=== PATIENT | male | born 1955 | race African-American/Black ===

== ENCOUNTER 2017-03-20 15:26 | Emergency (ER) | payer MEDICAID ==
[2017-03-20] VITALS (9 sets, daily range): BP systolic 160–206; BP diastolic 80–104; PULSE 67–82; RESP 14–24; TEMP 97.5; O2SAT 97–100
[~2017-03-20] VITALS: Ht 167.6 cm; Wt 56.0 kg
[~2017-03-20 15:26] MED LIST: ALLE12TA PO; GLUCTAB PO; LISI-366 PO; NORV2.5T11 PO; OMEP20TA39 PO
[2017-03-20] MEDS ORDERED: SODIUM CHLOR 0.9% 1000 ML INJ 1,000 ML IV ONE ×3 (16:20→17:45)
[2017-03-20] MEDS ORDERED: SODIUM CHLORIDE 0.9% FLUSH 10 ML FLUSH IVF PRN (16:30)
[2017-03-20 16:43] LABS: BASOPHIL # 0.1 TH/MM3 (0-0.2); BASOPHIL % 1.5 % (0.0-2.0); EOSINOPHIL # 0.2 TH/MM3 (0-0.4); EOSINOPHIL % 2.9 % (0.0-4.0); HEMATOCRIT 40.3 % (39.0-51.0); HEMO FLAGS DIFF FINAL; LYMPH % 25.8 % (9.0-44.0); MEAN CELL VOLUME 86.2 FL (80.0-100.0); MEAN CORPUSCULAR HEMOGLOBIN 27.3 PG (27.0-34.0); MEAN CORPUSCULAR HGB CONC 31.6 % (32.0-36.0); MONO % 6.7 % (0.0-8.0); NEUT % 63.1 % (16.0-70.0); PLATELET COUNT 252 TH/MM3 (150-450); RED BLOOD COUNT 4.67 MIL/MM3 (4.50-5.90); RED CELL DISTRIBUTION WIDTH 16.4 % (11.6-17.2); WHITE BLOOD COUNT 7.9 TH/MM3 (4.0-11.0)
--- NOTE | 2017-03-20 16:49 | PD ---
HPI Chief Complaint: Diabetic Time Seen by Provider: 16:40 Travel History International Travel<30 days: No Contact w/Intl Traveler<30days: No Traveled to known affect area: No History of Present Illness HPI Patient is 61-year-old male presenting to the emergency department for evaluation of elevated blood glucose reading. Patient was given a glucometer by his primary care provider today, he checked his blood sugar when he returned home and it was elevated pumping a visit to the emergency department. Patient has not been checking his blood sugar at all prior to today nor has he been compliant with his metformin. Patient denies any nausea, vomiting, fever, chills, abdominal pain, diarrhea. He reports past medical history significant for hypertension, type 2 diabetes, arthritis, asthma. He is a current daily smoker smoking 6 cigarettes daily. He denies any alcohol or drug use. PFSH Past Medical History Asthma: Yes ( CHILD) Cardiovascular Problems: Yes (htn) Diabetes: Yes (metformin) Diminished Hearing: No Hypertension: Yes Respiratory: Yes (asthma) Past Surgical History Tonsillectomy: Yes Social History Alcohol Use: Yes Tobacco Use: No Substance Use: No Allergies-Medications (Allergen,Severity, Reaction): Coded Allergies: No Known Allergies (Verified , 03/20/17) Reported Meds & Prescriptions Reported Meds & Active Scripts Active Reported Ranitidine (Ranitidine HCl) 150 Mg Cap Unknown Dose PO DAILY Lisinopril 40 Mg Tab Unknown Dose PO DAILY Metformin (Metformin HCl) 1,000 Mg Tab 1,000 Mg PO BIDPC With meals Review of Systems Except as stated in HPI: all other systems reviewed are Neg HENT: Positive: Congestion Physical Exam Narrative GENERAL: Developed, well-nourished, alert male. Resting comfortably in no acute distress. SKIN: Focused skin assessment warm/dry. HEAD: Atraumatic. Normocephalic. EYES: Pupils equal and round. No scleral icterus. No injection or drainage. ENT: No nasal bleeding or discharge. Mucous membranes pink and moist. NECK: Trachea midline. No JVD. CARDIOVASCULAR: Regular rate and rhythm. No murmur appreciated. RESPIRATORY: No accessory muscle use. Clear to auscultation. Breath sounds equal bilaterally. GASTROINTESTINAL: Abdomen soft, non-tender, nondistended. Hepatic and splenic margins not palpable. MUSCULOSKELETAL: No obvious deformities. No clubbing. No cyanosis. No edema. NEUROLOGICAL: Awake and alert. No obvious cranial nerve deficits. Motor grossly within normal limits. Normal speech. PSYCHIATRIC: Appropriate mood and affect; insight and judgment normal. Data Data Last Documented VS Vital Signs Date Time Temp Pulse Resp B/P Pulse Ox O2 Delivery O2 Flow Rate FiO2 03/20/17 20:12 71 22 206/99 98 Room Air 03/20/17 15:28 97.5 Orders Complete Blood Count With Diff (03/20/17 16:20) Comprehensive Metabolic Panel (03/20/17 16:20) Beta Hydroxybutyrate (Acetone) (03/20/17 16:20) Urinalysis - C+S If Indicated (03/20/17 16:20) Ecg Monitoring (03/20/17 16:20) Iv Access Insert/Monitor (03/20/17 16:20) Oximetry (03/20/17 16:20) NPO (03/20/17 16:20) Sodium Chlor 0.9% 1000 Ml Inj (Ns 1000 M (03/20/17 16:20) Sodium Chlor 0.9% 1000 Ml Inj (Ns 1000 M (03/20/17 16:50) Sodium Chloride 0.9% Flush (Ns Flush) (03/20/17 16:30) Insulin Human Regular Inj (Novolin R Inj (03/20/17 17:45) Sodium Chlor 0.9% 1000 Ml Inj (Ns 1000 M (03/20/17 17:45) Enalaprilat Inj (Vasotec Inj) (03/20/17 18:15) Blood Glucose (03/20/17 18:17) Hydralazine Inj (Apresoline Inj) (03/20/17 20:00) Labs Laboratory Tests Test 03/20/17 03/20/17 16:30 18:00 White Blood Count 7.9 TH/MM3 Red Blood Count 4.67 MIL/MM3 Hemoglobin 12.7 GM/DL Hematocrit 40.3 % Mean Corpuscular Volume 86.2 FL Mean Corpuscular Hemoglobin 27.3 PG Mean Corpuscular Hemoglobin 31.6 % Concent Red Cell Distribution Width 16.4 % Platelet Count 252 TH/MM3 Mean Platelet Volume 9.4 FL Neutrophils (%) (Auto) 63.1 % Lymphocytes (%) (Auto) 25.8 % Monocytes (%) (Auto) 6.7 % Eosinophils (%) (Auto) 2.9 % Basophils (%) (Auto) 1.5 % Neutrophils # (Auto) 5.0 TH/MM3 Lymphocytes # (Auto) 2.0 TH/MM3 Monocytes # (Auto) 0.5 TH/MM3 Eosinophils # (Auto) 0.2 TH/MM3 Basophils # (Auto) 0.1 TH/MM3 CBC Comment DIFF FINAL Differential Comment Sodium Level 135 MEQ/L Potassium Level 4.8 MEQ/L Chloride Level 99 MEQ/L Carbon Dioxide Level 28.2 MEQ/L Anion Gap 8 MEQ/L Blood Urea Nitrogen 17 MG/DL Creatinine 1.14 MG/DL Estimat Glomerular Filtration 80 ML/MIN Rate Random Glucose 431 MG/DL Calcium Level 9.0 MG/DL Total Bilirubin 0.5 MG/DL Aspartate Amino Transf 29 U/L (AST/SGOT) Alanine Aminotransferase 34 U/L (ALT/SGPT) Alkaline Phosphatase 133 U/L Total Protein 7.0 GM/DL Albumin 3.4 GM/DL B-Hydroxybutyrate 0.25 MMOL/L Urine Color LIGHT-YELLOW Urine Turbidity CLEAR Urine pH 6.0 Urine Specific [place] 1.019 Urine Protein 30 mg/dL Urine Glucose (UA) 1000 mg/dL Urine Ketones NEG mg/dL Urine Occult Blood NEG Urine Nitrite NEG Urine Bilirubin NEG Urine Urobilinogen LESS THAN 2.0 MG/DL Urine Leukocyte Esterase NEG Urine RBC LESS THAN 1 /hpf Urine WBC LESS THAN 1 /hpf Urine Squamous Epithelial <1 /hpf Cells Microscopic Urinalysis Comment CULT NOT INDICATED MDM Medical Decision Making Medical Screen Exam Complete: Yes Emergency Medical Condition: Yes Interpretation(s) Vital Signs Date Time Temp Pulse Resp B/P Pulse Ox O2 Delivery O2 Flow Rate FiO2 03/20/17 15:28 97.5 82 20 160/80 97 Room Air Differential Diagnosis DKA versus hyperglycemia versus noncompliance versus hypertensive urgency versus other Narrative Course Patient's 61-year-old male presenting to the emergency room for evaluation of elevated blood sugar reading. Patient has not been checking his blood sugars until he obtained a glucometer today from his primary doctor. He checked it approximately one hour after eating. He has no other complaints. Vital signs are stable, he did not take his blood pressure medication this morning. CBC is unremarkable Chemistry with a glucose of 431, 10 units of subcutaneous regular insulin ordered. Beta hydroxybutyrate 0.25 Urinalysis with elevated glucose of 1000 otherwise unremarkable BP elevated, enalapril IV 1 dose ordered. Patient's primary care provider sent and refills of his home medications, patient has not picked these up. He was encouraged to do so and maintain compliance with prescribed medications. Patient verbalized understanding of these instructions. He was advised to take metformin with the 2 largest meal of the day. Blood glucose reassessed at 217 Diagnosis Primary Impression: Hyperglycemia due to type 2 diabetes mellitus Qualified Code: E11.65 - Type 2 diabetes mellitus with hyperglycemia, unspecified long-term insulin use status Additional Impression: Hypertension Qualified Code: I10 - Essential hypertension Referrals: Primary Care Physician 2 days Patient Instructions: General Instructions, Hypertension (ED), Meal Planning with Diabetes Exchanges (DC), Type 2 Diabetes in Adults (ED) Additional Instructions: Follow-up with her primary doctor in 1-2 days to discuss your blood sugar readings Take blood pressure medication and diabetic medication as directed, do not skip doses. Take metformin with your 2 largest meals of the day Return to emergency department for any new or worsening symptoms Med/Other Pt SpecificInfo: No Change to Meds Disposition: 01 DISCHARGE HOME Condition: Stable Sara Garcia March 20, 2017 16:49 Sara Garcia March 20, 2017 16:49
[2017-03-20] MEDS ORDERED: RANI150C PO (17:06)
[2017-03-20] MEDS ORDERED: LISI40TA PO (17:06)
[2017-03-20] MEDS ORDERED: METF1000 PO (17:06)
[2017-03-20 17:13] LABS: ALKALINE PHOSPHATASE 133 U/L (45-117); ALT (GPT) 34 U/L (12-78); ANION GAP 8 MEQ/L (5-15); AST (GOT) 29 U/L (15-37); BETA-HYDROXYBUTYRATE 0.25 MMOL/L (0.00-0.39); BICARBONATE 28.2 MEQ/L (21.0-32.0); BLOOD UREA NITROGEN 17 MG/DL (7-18); CHLORIDE 99 MEQ/L (98-107); GLOMERULAR FILTRATION RATE 80 ML/MIN (>89); SODIUM (NA) 135 MEQ/L (136-145); TOTAL BILIRUBIN ADULT 0.5 MG/DL (0.2-1.0)
[2017-03-20 17:33] LABS: POTASSIUM 4.8 MEQ/L (3.5-5.1)
[2017-03-20] MEDS ORDERED: INSULIN HUMAN REGULAR 1,000 UNITS/10 ML VIAL SQ ONE (17:45)
[2017-03-20] MEDS ORDERED: ENALAPRILAT 2.5 MG/2 ML VIAL IV PUSH ONE (18:15)
[2017-03-20 18:37] LABS: BLOOD, URINE NEG (NEG); COMMENT (UR) CULT NOT INDICATED; CULTURE IF INDICATED CULT NOT INDICATED; GLUCOSE,URINE 1000 mg/dL (NEG); KETONE, URINE NEG (NEG); NITRITE,URINE NEG (NEG); SQUAMOUS EPITHELIAL CELL URINE <1 /hpf (0-5); URINE COLOR LIGHT-YELLOW (YELLW/STRAW)
[2017-03-20] MEDS ORDERED: hydrALAZINE HCL 20 MG/ML VIAL IV PUSH ONE (20:00)
--- NOTE | 2017-03-20 20:31 | PD ---
Physical Exam Narrative I, Dr. Parry, have reviewed the advance practice practitioner's documentation and am in agreement, met with the patient face to face, made the diagnosis, and the medical decision making was done by me. *My assessment and Findings: Uncontrolled diabetes. 61yo M with HTN and DM here with elevated glucose. Pt has his prescriptions in the pharmacy but did not pick it up. Labs reviewed, no leukocytosis. Blood glucose elevated at 431. No increased anion gap. Normal b-Hydroxybutyrate. UA negative for leukocyte and nitrite. Pt given regular insulin 10 units and repeat blood glucose was 217. Blood pressure was elevated so hydralazine 10mg IV given. Repeat BP was 186/95. Pt has no complaints. Instructed pt to go to pharmacy to get his medications. Return precautions given. Data Data Last Documented VS Vital Signs Date Time Temp Pulse Resp B/P Pulse Ox O2 Delivery O2 Flow Rate FiO2 03/20/17 20:12 71 22 206/99 98 Room Air 03/20/17 15:28 97.5 Orders Complete Blood Count With Diff (03/20/17 16:20) Comprehensive Metabolic Panel (03/20/17 16:20) Beta Hydroxybutyrate (Acetone) (03/20/17 16:20) Urinalysis - C+S If Indicated (03/20/17 16:20) Ecg Monitoring (03/20/17 16:20) Iv Access Insert/Monitor (03/20/17 16:20) Oximetry (03/20/17 16:20) NPO (03/20/17 16:20) Sodium Chlor 0.9% 1000 Ml Inj (Ns 1000 M (03/20/17 16:20) Sodium Chlor 0.9% 1000 Ml Inj (Ns 1000 M (03/20/17 16:50) Sodium Chloride 0.9% Flush (Ns Flush) (03/20/17 16:30) Insulin Human Regular Inj (Novolin R Inj (03/20/17 17:45) Sodium Chlor 0.9% 1000 Ml Inj (Ns 1000 M (03/20/17 17:45) Enalaprilat Inj (Vasotec Inj) (03/20/17 18:15) Blood Glucose (03/20/17 18:17) Hydralazine Inj (Apresoline Inj) (03/20/17 20:00) Labs Laboratory Tests Test 03/20/17 03/20/17 16:30 18:00 White Blood Count 7.9 TH/MM3 Red Blood Count 4.67 MIL/MM3 Hemoglobin 12.7 GM/DL Hematocrit 40.3 % Mean Corpuscular Volume 86.2 FL Mean Corpuscular Hemoglobin 27.3 PG Mean Corpuscular Hemoglobin 31.6 % Concent Red Cell Distribution Width 16.4 % Platelet Count 252 TH/MM3 Mean Platelet Volume 9.4 FL Neutrophils (%) (Auto) 63.1 % Lymphocytes (%) (Auto) 25.8 % Monocytes (%) (Auto) 6.7 % Eosinophils (%) (Auto) 2.9 % Basophils (%) (Auto) 1.5 % Neutrophils # (Auto) 5.0 TH/MM3 Lymphocytes # (Auto) 2.0 TH/MM3 Monocytes # (Auto) 0.5 TH/MM3 Eosinophils # (Auto) 0.2 TH/MM3 Basophils # (Auto) 0.1 TH/MM3 CBC Comment DIFF FINAL Differential Comment Sodium Level 135 MEQ/L Potassium Level 4.8 MEQ/L Chloride Level 99 MEQ/L Carbon Dioxide Level 28.2 MEQ/L Anion Gap 8 MEQ/L Blood Urea Nitrogen 17 MG/DL Creatinine 1.14 MG/DL Estimat Glomerular Filtration 80 ML/MIN Rate Random Glucose 431 MG/DL Calcium Level 9.0 MG/DL Total Bilirubin 0.5 MG/DL Aspartate Amino Transf 29 U/L (AST/SGOT) Alanine Aminotransferase 34 U/L (ALT/SGPT) Alkaline Phosphatase 133 U/L Total Protein 7.0 GM/DL Albumin 3.4 GM/DL B-Hydroxybutyrate 0.25 MMOL/L Urine Color LIGHT-YELLOW Urine Turbidity CLEAR Urine pH 6.0 Urine Specific [place] 1.019 Urine Protein 30 mg/dL Urine Glucose (UA) 1000 mg/dL Urine Ketones NEG mg/dL Urine Occult Blood NEG Urine Nitrite NEG Urine Bilirubin NEG Urine Urobilinogen LESS THAN 2.0 MG/DL Urine Leukocyte Esterase NEG Urine RBC LESS THAN 1 /hpf Urine WBC LESS THAN 1 /hpf Urine Squamous Epithelial <1 /hpf Cells Microscopic Urinalysis Comment CULT NOT INDICATED MDM Supervised Visit with CELESTE: Yes Diagnosis Primary Impression: Hyperglycemia due to type 2 diabetes mellitus Qualified Code: E11.65 - Type 2 diabetes mellitus with hyperglycemia, unspecified buttermaker continuous churn insulin use status Additional Impression: Hypertension Qualified Code: I10 - Essential hypertension Referrals: Primary Care Physician 2 days Patient Instructions: General Instructions, Type 2 Diabetes in Adults (ED), Meal Planning with Diabetes Exchanges (DC), Hypertension (ED) Additional Instruction: Follow-up with her primary doctor in 1-2 days to discuss your blood sugar readings Take blood pressure medication and diabetic medication as directed, do not skip doses. Take metformin with your 2 largest meals of the day Return to emergency department for any new or worsening symptoms Disposition: 01 DISCHARGE HOME Condition: Stable Asha Parry DO March 20, 2017 20:31
== END 2017-03-20 21:13 | disposition home or self-care (01) ==
LOC: NEPE 15:26
DX: E11.65 Type 2 diabetes mellitus with hyperglycemia (principal); I10 Essential (primary) hypertension; Z72.0 Tobacco use; Z79.84 Long term (current) use of oral hypoglycemic drugs; Z87.39 Personal history of other diseases of the musculoskeletal system and connective tissue; Z86.79 Personal history of other diseases of the circulatory system
CPT/HCPCS: 80053; 81001; 82010; 85025; 96361; 96372; 96374; 96375; 99284; J0360; J1815; J7030

== ENCOUNTER 2017-09-10 13:02 | Emergency (ER) | payer MEDICARE, MEDICAID ==
[~2017-09-10] VITALS: Ht 165.1 cm; Wt 56.0 kg
[~2017-09-10 13:02] MED LIST changes: -ALLE12TA PO; -GLUCTAB PO; -LISI-366 PO; +LISI40TA PO; +METF1000 PO; -NORV2.5T11 PO; -OMEP20TA39 PO; +RANI150C PO
[2017-09-10 13:19] VITALS: BP_SYST 175; BP_SYST 185; BP_DIAS 84; BP_DIAS 85; PULSE 81; PULSE 86; RESP 16; RESP 22; TEMP 97.8; TEMP 98.3; O2SAT 100
[2017-09-10] MEDS ORDERED: SODIUM CHLOR 0.9% 1000 ML INJ 1,000 ML IV ONE (13:19)
[2017-09-10] MEDS ORDERED: OMEP20TA93 PO (13:22)
[2017-09-10] MEDS ORDERED: LISI-515 PO (13:22)
[2017-09-10 13:25] VITALS: RESP 16; O2SAT 100
[2017-09-10] MEDS: SODIUM CHLORIDE 0.9% FLUSH 10 ML FLUSH IVF PRN ×2 (13:26→16:20)
--- NOTE | 2017-09-10 13:30 | PD ---
HPI Chief Complaint: Diabetic Time Seen by Provider: 13:18 Travel History International Travel<30 days: No Contact w/Intl Traveler<30days: No Traveled to known affect area: No History of Present Illness HPI Patient is a 61-year-old male presents emergency department for evaluation of hyperglycemia. He states that yesterday he had an injection of his right eye floaters in his eye, he states his vision is fine, he took her sugar today because he had the floaters yesterday and found to be elevated in the 500s. Denies any chest pain shortness breath abdominal pain nausea vomiting diarrhea constipation blood in the stool or fevers. States he just had his metformin refilled and started taking again. PFSH Past Medical History Asthma: Yes ( CHILD) Cardiovascular Problems: Yes (htn) Diabetes: Yes Diminished Hearing: No Hypertension: Yes Respiratory: Yes (asthma) Social History Alcohol Use: Yes (OCCASSIONAL) Tobacco Use: Yes Substance Use: No Allergies-Medications (Allergen,Severity, Reaction): Coded Allergies: No Known Allergies (Verified Adverse Reaction, Unknown, 09/10/17) Reported Meds & Prescriptions Reported Meds & Active Scripts Active Reported Ranitidine (Ranitidine HCl) 150 Mg Cap Unknown Dose PO DAILY Metformin (Metformin HCl) 1,000 Mg Tab 1,000 Mg PO BIDPC With meals Review of Systems Except as stated in HPI: all other systems reviewed are Neg Physical Exam Narrative GENERAL: Well-developed well-nourished no obvious distress. SKIN: Focused skin assessment warm/dry. HEAD: Atraumatic. Normocephalic. EYES: Pupils equal and round. No scleral icterus. No injection or drainage. Subconjunctival hematoma the right eye, vision reported is grossly intact. Checked movements intact and nontender. ENT: No nasal bleeding or discharge. Mucous membranes pink and moist. NECK: Trachea midline. No JVD. CARDIOVASCULAR: Regular rate and rhythm. No murmur appreciated. RESPIRATORY: No accessory muscle use. Clear to auscultation. Breath sounds equal bilaterally. GASTROINTESTINAL: Abdomen soft, non-tender, nondistended. Hepatic and splenic margins not palpable. MUSCULOSKELETAL: No obvious deformities. No clubbing. No cyanosis. No edema. NEUROLOGICAL: Awake and alert. No obvious cranial nerve deficits. Motor grossly within normal limits. Normal speech. PSYCHIATRIC: Appropriate mood and affect; insight and judgment normal. Data Data Last Documented VS Vital Signs Date Time Temp Pulse Resp B/P (MAP) Pulse Ox O2 Delivery O2 Flow Rate FiO2 09/10/17 17:25 97.8 76 17 124/78 (93) 99 09/10/17 14:31 Room Air Orders Orders Complete Blood Count With Diff (09/10/17 13:19) Comprehensive Metabolic Panel (09/10/17 13:19) Magnesium (Mg) (09/10/17 13:19) Phosphorus (Po4) (09/10/17 13:19) Urinalysis - C+S If Indicated (09/10/17 13:19) Ecg Monitoring (09/10/17 13:19) Iv Access Insert/Monitor (09/10/17 13:19) Oximetry (09/10/17:19) NPO (09/10/17 13:19) Sodium Chloride 0.9% Flush (Ns Flush) (09/10/17 13:30) Sodium Chlor 0.9% 1000 Ml Inj (Ns 1000 M (09/10/17 13:19) Insulin Human Regular Inj (Novolin R Inj (09/10/17 15:15) Ed Discharge Order (09/10/17 17:02) Labs Laboratory Tests Test 09/10/17 13:30 09/10/17 14:50 White Blood Count 7.8 TH/MM3 Red Blood Count 4.53 MIL/MM3 Hemoglobin 12.7 GM/DL Hematocrit 39.8 % Mean Corpuscular Volume 88.0 FL Mean Corpuscular Hemoglobin 28.0 PG Mean Corpuscular Hemoglobin Concent 31.8 % Red Cell Distribution Width 16.4 % Platelet Count 237 TH/MM3 Mean Platelet Volume 9.9 FL Neutrophils (%) (Auto) 76.1 % Lymphocytes (%) (Auto) 17.0 % Monocytes (%) (Auto) 5.7 % Eosinophils (%) (Auto) 0.8 % Basophils (%) (Auto) 0.4 % Neutrophils # (Auto) 6.0 TH/MM3 Lymphocytes # (Auto) 1.3 TH/MM3 Monocytes # (Auto) 0.4 TH/MM3 Eosinophils # (Auto) 0.1 TH/MM3 Basophils # (Auto) 0.0 TH/MM3 CBC Comment DIFF FINAL Differential Comment Blood Urea Nitrogen 16 MG/DL Creatinine 1.26 MG/DL Random Glucose 596 MG/DL Total Protein 6.8 GM/DL Albumin 3.4 GM/DL Calcium Level 8.8 MG/DL Phosphorus Level 4.0 MG/DL Magnesium Level 1.8 MG/DL Alkaline Phosphatase 128 U/L Aspartate Amino Transf (AST/SGOT) 19 U/L Alanine Aminotransferase (ALT/SGPT) 25 U/L Total Bilirubin 0.3 MG/DL Sodium Level 133 MEQ/L Potassium Level 4.2 MEQ/L Chloride Level 98 MEQ/L Carbon Dioxide Level 23.9 MEQ/L Anion Gap 11 MEQ/L Estimat Glomerular Filtration Rate 71 ML/MIN Urine Color LIGHT-YELLOW Urine Turbidity CLEAR Urine pH 5.5 Urine Specific [place] 1.030 Urine Protein 30 mg/dL Urine Glucose (UA) 1000 mg/dL Urine Ketones NEG mg/dL Urine Occult Blood NEG Urine Nitrite NEG Urine Bilirubin NEG Urine Urobilinogen LESS THAN 2.0 MG/DL Urine Leukocyte Esterase NEG Urine RBC LESS THAN 1 /hpf Urine WBC 1 /hpf Urine Squamous Epithelial Cells <1 /hpf Microscopic Urinalysis Comment CULT NOT INDICATED MDM Medical Decision Making Medical Screen Exam Complete: Yes Emergency Medical Condition: Yes Differential Diagnosis Hyperglycemia, severe bacterial illness unlikely, medical noncompliance, DKA is possibility but seems unlikely. Narrative Course Patient roomed emerged department, received normal saline, blood sugar went from in excess of 500 down below 300 with fluids alone. Labs are reassuring. Patient was reassured he appears well and is no indication further workup at this time. He stable for discharge. Recommended continuing metformin follow- up with the [facility] with primary care physician. Diagnosis Primary Impression: Hyperglycemia Referrals: [facility] Disposition: 01 DISCHARGE HOME Condition: Stable James Sawyer MD Sep 10, 2017 13:30
[2017-09-10 14:03] LABS: BASOPHIL % 0.4 % (0.0-2.0); EOSINOPHIL # 0.1 TH/MM3 (0-0.4); EOSINOPHIL % 0.8 % (0.0-4.0); HEMATOCRIT 39.8 % (39.0-51.0); HEMO FLAGS DIFF FINAL; LYMPHOCYTE # 1.3 TH/MM3 (1.0-4.8); MEAN CORPUSCULAR HGB CONC 31.8 % (32.0-36.0); MONO % 5.7 % (0.0-8.0); NEUT % 76.1 % (16.0-70.0); PLATELET COUNT 237 TH/MM3 (150-450); RED BLOOD COUNT 4.53 MIL/MM3 (4.50-5.90); RED CELL DISTRIBUTION WIDTH 16.4 % (11.6-17.2); WHITE BLOOD COUNT 7.8 TH/MM3 (4.0-11.0)
[2017-09-10 14:27] LABS: ALKALINE PHOSPHATASE 128 U/L (45-117); ALT (GPT) 25 U/L (12-78); ANION GAP 11 MEQ/L (5-15); AST (GOT) 19 U/L (15-37); BICARBONATE 23.9 MEQ/L (21.0-32.0); BLOOD UREA NITROGEN 16 MG/DL (7-18); CHLORIDE 98 MEQ/L (98-107); GLOMERULAR FILTRATION RATE 71 ML/MIN (>89); MAGNESIUM 1.8 MG/DL (1.5-2.5); SODIUM (NA) 133 MEQ/L (136-145); TOTAL BILIRUBIN ADULT 0.3 MG/DL (0.2-1.0)
[2017-09-10 14:31] VITALS: BP 134/69; PULSE 73; RESP 16; TEMP 97.8; O2SAT 99
[2017-09-10 14:34] LABS: POTASSIUM 4.2 MEQ/L (3.5-5.1)
[2017-09-10 15:15] LABS: BLOOD, URINE NEG (NEG); GLUCOSE,URINE 1000 mg/dL (NEG); KETONE, URINE NEG (NEG); NITRITE,URINE NEG (NEG); PH, URINE 5.5 (5.0-8.5); SQUAMOUS EPITHELIAL CELL URINE <1 /hpf (0-5); URINE COLOR LIGHT-YELLOW (YELLW/STRAW)
[2017-09-10] MEDS ORDERED: INSULIN HUMAN REGULAR 1,000 UNITS/10 ML VIAL IV PUSH ONE (15:15)
[2017-09-10 15:16] LABS: COMMENT (UR) CULT NOT INDICATED; CULTURE IF INDICATED CULT NOT INDICATED
[2017-09-10 17:25] VITALS: BP 124/78; TEMP 97.8
== END 2017-09-10 17:25 | disposition home or self-care (01) ==
LOC: NEPE 13:02
DX: E11.65 Type 2 diabetes mellitus with hyperglycemia (principal); I10 Essential (primary) hypertension; J45.909 Unspecified asthma, uncomplicated; Z72.0 Tobacco use
CPT/HCPCS: 80053; 81001; 83735; 84100; 85025; 96361; 96374; 99284; J7030

== ENCOUNTER 2018-02-17 16:24 | Emergency (ER) | payer MEDICAID, MEDICARE ==
[~2018-02-17] VITALS: Ht 165.1 cm; Wt 58.0 kg
[~2018-02-17 16:24] MED LIST changes: +LISI-515 PO; -LISI40TA PO; +OMEP20TA93 PO
[2018-02-17 16:37] VITALS: BP 163/82; PULSE 89; RESP 16; TEMP 98.3; O2SAT 100
--- NOTE | 2018-02-17 17:27 | PD ---
HPI Chief Complaint: Oral / Dental Pain or Problem Time Seen by Provider: 17:10 Travel History International Travel<30 days: No Contact w/Intl Traveler<30days: No Traveled to known affect area: No History of Present Illness HPI 62-year-old male presents to the emergency room for evaluation of left TMJ discomfort for the past several years. States typically it is in both ears but today it is just on the left. He has associated left ear pressure and discomfort that he attributes to his TMJ. Symptoms only occur with speaking. Patient has been seen multiple times in the emergency room for the same thing in the past. He has not taken anything or done anything for his symptoms this time around. States he is in no significant pain. Patient believes that his TMJ discomfort is caused by lack of teeth. He is trying to get dentures. History Social History Alcohol Use: Yes (OCCASSIONAL) Tobacco Use: Yes (4 CIGARRETTE PER DAY) Allergies-Medications (Allergen,Severity, Reaction): Coded Allergies: No Known Allergies (Verified Adverse Reaction, Unknown, 02/17/18) Reported Meds & Prescriptions Reported Meds & Active Scripts Active Reported Ranitidine (Ranitidine HCl) 150 Mg Cap Unknown Dose PO DAILY Metformin (Metformin HCl) 1,000 Mg Tab 1,000 Mg PO BIDPC With meals Review of Systems Except as stated in HPI: all other systems reviewed are Neg Physical Exam Narrative GENERAL: Well-nourished, well-developed male in no acute distress. Afebrile. Ambulatory. SKIN: Focused skin assessment warm/dry. HEAD: Normocephalic. EYES: No scleral icterus. No injection or drainage. NECK: Supple, trachea midline. No JVD or lymphadenopathy. DENTAL: No teeth. No evidence of infection. EARS: Bilateral pinnae and external canals appear within normal limits. Bilateral tympanic membranes without erythema, dullness or perforation. ENT: Mucosa pink and moist. No erythema or exudates. No uvular edema. No uvular , palatal, or tonsillar deviation. Airway patent. Nasal turbinates appear normal without nasal blood, purulent drainage or septal hematoma. Data Data Last Documented VS Vital Signs Date Time Temp Pulse Resp B/P (MAP) Pulse Ox O2 Delivery O2 Flow Rate FiO2 02/17/18 16:37 98.3 89 16 163/82 (109) 100 MDM Medical Screen Exam Complete: Yes Emergency Medical Condition: No Differential Diagnosis Eustachian tube dysfunction Narrative Course 62-year-old male presents to the emergency room for evaluation of chronic TMJ discomfort and chronic eustachian tube dysfunction. Patient has been seen multiple times in the emergency room for the same. He has not taken anything or done anything for his symptoms. Discomfort is minimal and only occurs with speaking. Physical exam is unremarkable. No evidence of infection in the mouth or ear. There are no urgent or emergent medical conditions at this time. A medical screening exam was performed: At the time of evaluation the presenting medical condition was determined not to be of an emergent nature. The patient was given the option of receiving additional care, but declined. Patient was given options for additional community resources from which to obtain care. The Patient Has Been advised to seek medical attention for their presenting complaint. The patient has been advised to return to the ER at any time if an emergent condition develops. Primary Impression: Encounter for medical screening examination Disposition: 01 DISCHARGE HOME Condition: Stable Ella Martinez Feb 17, 2018 17:27
== END 2018-02-17 17:30 | disposition left against medical advice (07) ==
LOC: NEPK 16:24
DX: M26.602 Left temporomandibular joint disorder, unspecified (principal)
CPT/HCPCS: 99281

== ENCOUNTER 2018-04-10 18:04 | Emergency (ER) | payer MEDICAID ==
[~2018-04-10] VITALS: Ht 167.6 cm; Wt 56.5 kg
[2018-04-10 18:10] VITALS: BP 139/65; PULSE 97; RESP 18; TEMP 98; O2SAT 100
--- NOTE | 2018-04-10 22:53 | PD ---
HPI Chief Complaint: ENT Complaint Time Seen by Provider: 22:28 Travel History International Travel<30 days: No Contact w/Intl Traveler<30days: No Traveled to known affect area: No History of Present Illness HPI Patient is 62-year-old male who presents the emergency room for evaluation of ear wax. Reports that his ears feel full and he thinks that "my ears are full of wax and need to be cleaned out." PFSH Past Medical History Asthma: Yes ( CHILD) Cardiovascular Problems: Yes (htn) Diabetes: Yes Diminished Hearing: No Hypertension: Yes Respiratory: Yes (asthma) Social History Alcohol Use: Yes (OCCASSIONAL) Tobacco Use: Yes (4 CIGARRETTE PER DAY) Substance Use: No Allergies-Medications (Allergen,Severity, Reaction): Coded Allergies: No Known Allergies (Verified Adverse Reaction, Unknown, 02/17/18) Reported Meds & Prescriptions Reported Meds & Active Scripts Active Reported Ranitidine (Ranitidine HCl) 150 Mg Cap Unknown Dose PO DAILY Metformin (Metformin HCl) 1,000 Mg Tab 1,000 Mg PO BIDPC With meals Review of Systems General / Constitutional: No: Fever Eyes: No: Visual changes HENT: Positive: Earache, Other ("ear fullness" ), No: Headaches Cardiovascular: No: Chest Pain or Discomfort Respiratory: No: Shortness of Breath Gastrointestinal: No: Abdominal Pain Genitourinary: No: Dysuria Musculoskeletal: No: Pain Skin: No Rash Neurologic: No: Weakness Psychiatric: No: Depression Endocrine: No: Polydipsia Hematologic/Lymphatic: No: Easy Bruising Physical Exam Narrative GENERAL: Well-nourished, well-developed patient. SKIN: Focused skin assessment warm/dry. HEAD: Normocephalic. EYES: No scleral icterus. No injection or drainage. ENT: patient with no cerumen, bilateral TMs are noninjected, not red, no bulging , no erythema, no signs of otitis media or externa NECK: Supple, trachea midline. No JVD or lymphadenopathy. CARDIOVASCULAR: Regular rate and rhythm without murmurs, gallops, or rubs. RESPIRATORY: Breath sounds equal bilaterally. No accessory muscle use. GASTROINTESTINAL: Abdomen soft, non-tender, nondistended. MUSCULOSKELETAL: No cyanosis, or edema. BACK: Nontender without obvious deformity. No CVA tenderness. Data Data Last Documented VS Vital Signs Date Time Temp Pulse Resp B/P (MAP) Pulse Ox O2 Delivery O2 Flow Rate FiO2 04/10/18 18:10 98.0 97 18 139/65 (89) 100 MDM Medical Decision Making Medical Screen Exam Complete: Yes Emergency Medical Condition: Yes Medical Record Reviewed: Yes Interpretation(s) Vital Signs Date Time Temp Pulse Resp B/P (MAP) Pulse Ox O2 Delivery O2 Flow Rate FiO2 04/10/18 18:10 98.0 97 18 139/65 (89) 100 Differential Diagnosis Otitis media, cerumen impaction Narrative Course 62-year-old male who presents the emergency room for evaluation of bilateral cerumen impaction, patient with no cerumen impaction, patient with no signs of infection. Patient is safe to be discharged to home with outpatient follow-up. Diagnosis Primary Impression: Normal ENT exam Patient Instructions: General Instructions Additional Instructions: Please follow up with your ENT doctor Please follow up with your primary care doctor Return to the ER as needed Disposition: 01 DISCHARGE HOME Condition: Stable Lindsey Mcnair DO Apr 10, 2018 22:53
== END 2018-04-10 23:39 | disposition home or self-care (01) ==
LOC: NEPD 18:04
DX: Z03.89 Encounter for observation for other suspected diseases and conditions ruled out (principal); F17.210 Nicotine dependence, cigarettes, uncomplicated; E11.9 Type 2 diabetes mellitus without complications; Z79.84 Long term (current) use of oral hypoglycemic drugs
CPT/HCPCS: 99281

== ENCOUNTER 2018-06-24 16:05 | Inpatient (IN) ==
[2018-06-24] MEDS ORDERED: Sod Chloride 0.9% Inj 1,000 ML IV.CONT SCH (17:00)
--- NOTE | 2018-06-24 17:13 | ED ---
HPI General Chief Complaint: Neuro Symptoms/Deficit Stated Complaint: trouble walking Time Seen by Provider: 06/24/18 16:44 Source: patient, RN notes reviewed and old records reviewed Limitations: other (Slurred speech) History of Present Illness HPI Narrative: 62-year-old male presents with feeling abnormal since last night. He woke up at 4 AM to go the bathroom and felt about the same. He states that 11 AM when he woke up again he felt worse and looked in the mirror and saw his face. He denies any specific other complaints but is a very poor historian and difficult to get an initial timeline on. He denies taking any blood thinner medications. Related Data Home Medications Medication Instructions Recorded Confirmed Unable to Obtain Home Meds 06/24/18 06/24/18 Allergies Allergy/AdvReac Type Severity Reaction Status Date / Time No Known Allergies AdvReac Unknown Uncoded 02/17/18 16:41 Review of Systems ROS Unobtainable ROS Unobtainable: other (slurred speech, poor historian) [facility] Medical History Medical History Diabetes mellitus (Acute) HTN (hypertension) (Acute) Social History Social History Substance History: No History of Abuse Second Hand Smoke Exposure: No Smoking Status: Current every day smoker Tobacco Type: Cigarettes How Often Do You Have a Drink Containing Alcohol: Never Recent Travel in [facility] within the Last 8 Weeks: No Recent Out of Country Travel within the Last 8 Weeks: No Immunization History Tetanus Immunization: Unable to Assess Hx Influenza Vaccine This Season: No Exam Narrative Exam Narrative: GENERAL: 62-year-old male in no apparent distress SKIN: Focused skin assessment warm/dry. HEAD: Atraumatic. Normocephalic. EYES: Pupils equal and round. No scleral icterus. No injection or drainage. ENT: No nasal bleeding or discharge. Mucous membranes pink and moist. NECK: Trachea midline. No JVD. CARDIOVASCULAR: Regular rate and rhythm. RESPIRATORY: No accessory muscle use. Clear to auscultation. Breath sounds equal bilaterally. GASTROINTESTINAL: Abdomen soft, non-tender, nondistended. MUSCULOSKELETAL: No obvious deformities. No clubbing. No cyanosis. No edema. NEUROLOGICAL: Awake, slurred speech, facial droop noted, mild left-sided pronator drift, otherwise nonfocal neuro exam Course Reevaluation(s) Reevaluation #1: On recheck patient speech is better, family states that he was unsteady on his feet at home. Patient and family agreed to workup for further care Consultations Consultation #1: dr foreman agrees to admit Initial Documented Vital Signs Temperature 97.5 F L 06/24/18 16:43 Pulse Rate 83 06/24/18 16:43 Respiratory Rate 18 06/24/18 16:43 Blood Pressure 176/79 H 06/24/18 16:43 Pulse Oximetry 99 06/24/18 16:43 Last Documented Vital Signs Temperature 97.5 F L 06/24/18 16:43 Pulse Rate 78 06/24/18 17:33 Respiratory Rate 18 06/24/18 17:33 Blood Pressure 157/77 H 06/24/18 17:33 Pulse Oximetry 95 06/24/18 17:33 NIH Stroke Scale NIH Stroke Scale Level of Consciousness: 0-Alert Orientation Questions: 0-Answers both correct Responds to Commands: 0-Both tasks correct Gaze Eye Movement: 0-Horizontal movement WNL Visual Mullins: 0-No visual field defect Facial Movement: 1-Minor facial palsy Motor Functions Arm LEFT: 1-Drift before 10 seconds Motor Functions Arm RIGHT: 0-No drift Motor Functions Leg LEFT: 1-Drift before 5 seconds Motor Functions Leg RIGHT: 0-No drift Limb Ataxia: 1-Ataxia in one limb Sensory Loss: 0-No sensory loss Best Language: 0-Normal Articulation: 0-Normal Extinction or Inattention Sensory: 0-Absent Total: 4 Medical Decision Making MDM Narrative Medical decision making narrative: Patient with symptoms when he woke up at 11 AM. Last normal was 4 AM. Outside stroke alert window. Patient has facial droop and slurred speech with mild weakness to left arm. He will need further workup for stroke and admission Medical Screen Exam Complete: Yes Emergency Medical Condition: Yes Differential Diagnosis Differential Diagnosis: Stroke, mass, bleed Lab Data Lab results reviewed: Yes I reviewed the patient's lab results. Result diagrams: 06/24/18 17:05 06/24/18 17:05 Lab Results 06/24/18 06/24/18 06/24/18 Range/Units 17:05 17:05 17:05 WBC 9.3 (4.0-11.0) th/mm3 RBC 4.07 L (4.50-5.90) mil/mm3 Hgb 11.4 L (13.0-17.0) gm/dL Hct 34.8 L (39.0-51.0) % MCV 85.5 (80.0-100.0) fL MCH 28.1 (27.0-34.0) pg MCHC 32.8 (32.0-36.0) % RDW 16.4 (11.6-17.2) % Plt Count 262 (150-450) th/mm3 MPV 9.8 (7.0-11.0) fL Neut % (Auto) 63.3 (16.0-70.0) % Lymph % (Auto) 25.5 (9.0-44.0) % [place] % (Auto) 5.5 (0.0-8.0) % Eos % (Auto) 4.9 H (0.0-4.0) % Baso % (Auto) 0.8 (0.0-2.0) % Neut # (Auto) 5.9 (1.8-7.7) th/mm3 Lymph # (Auto) 2.4 (1.0-4.8) th/mm3 [place] # (Auto) 0.5 (0.0-0.9) th/mm3 Eos # (Auto) 0.5 H (0.0-0.4) th/mm3 Baso # (Auto) 0.1 (0.0-0.2) th/mm3 WBC Differential . Differential Comment Auto diff final PT 10.0 (9.8-11.6) sec INR 1.0 Ratio APTT 24.7 (24.3-30.1) sec Sodium 137 (136-145) meq/L Potassium 5.8 H (3.5-5.1) meq/L Chloride 104 (98-107) meq/L Carbon Dioxide 27.0 (21.0-32.0) meq/L Anion Gap 6 (5-15) meq/L BUN 14 (7-18) mg/dL Creatinine 0.78 (0.60-1.30) mg/dL Estimated GFR Greater than 89 (>89) mL/min Random Glucose 217 H (74-106) mg/dL Calcium 8.8 (8.5-10.1) mg/dL Total Bilirubin 0.3 (0.2-1.0) mg/dL AST 65 H (15-37) U/L ALT 24 (12-78) U/L Alkaline Phosphatase 112 (45-117) U/L Total Creatine Kinase (39-308) U/L CK-MB (CK-2) (0.5-3.6) ng/mL Troponin I (0.02-0.05) ng/mL Total Protein 7.5 (6.4-8.2) g/dL Albumin 3.5 (3.4-5.0) g/dL Serum Alcohol Less than 3 (0-5) mg/dL 06/24/18 Range/Units 17:05 WBC (4.0-11.0) th/mm3 RBC (4.50-5.90) mil/mm3 Hgb (13.0-17.0) gm/dL Hct (39.0-51.0) % MCV (80.0-100.0) fL MCH (27.0-34.0) pg MCHC (32.0-36.0) % RDW (11.6-17.2) % Plt Count (150-450) th/mm3 MPV (7.0-11.0) fL Neut % (Auto) (16.0-70.0) % Lymph % (Auto) (9.0-44.0) % [place] % (Auto) (0.0-8.0) % Eos % (Auto) (0.0-4.0) % Baso % (Auto) (0.0-2.0) % Neut # (Auto) (1.8-7.7) th/mm3 Lymph # (Auto) (1.0-4.8) th/mm3 [place] # (Auto) (0.0-0.9) th/mm3 Eos # (Auto) (0.0-0.4) th/mm3 Baso # (Auto) (0.0-0.2) th/mm3 WBC Differential Differential Comment PT (9.8-11.6) sec INR Ratio APTT (24.3-30.1) sec Sodium (136-145) meq/L Potassium (3.5-5.1) meq/L Chloride (98-107) meq/L Carbon Dioxide (21.0-32.0) meq/L Anion Gap (5-15) meq/L BUN (7-18) mg/dL Creatinine (0.60-1.30) mg/dL Estimated GFR (>89) mL/min Random Glucose (74-106) mg/dL Calcium (8.5-10.1) mg/dL Total Bilirubin (0.2-1.0) mg/dL AST (15-37) U/L ALT (12-78) U/L Alkaline Phosphatase (45-117) U/L Total Creatine Kinase 196 (39-308) U/L CK-MB (CK-2) 1.9 (0.5-3.6) ng/mL Troponin I Less than 0.02 L (0.02-0.05) ng/mL Total Protein (6.4-8.2) g/dL Albumin (3.4-5.0) g/dL Serum Alcohol (0-5) mg/dL Imaging Data Attestation: I personally reviewed and interpreted this imaging study as follows : Radiologist's impression: Chest X-Ray 06/24/18 16:51 CONCLUSION: Negative examination. Head CT 06/24/18 16:52 CONCLUSION: 1. Since the previous study there has been development of white matter disease as well as multiple lacunar infarcts in the basal ganglia bilaterally. 2. No definite acute findings. . Discharge Plan Discharge Disposition Patient Disposition: 30 Still Patient Discharge Condition Condition: Stable Discharge Details Diagnosis: Unsteady gait, Weakness, Facial droop Physicians Team ED Provider: Charlee Rubi Primary Care Provider: UNKNOWN, Attending Provider: Yfn Foreman Status ED Status: Admitted Observation Patient
--- NOTE | 2018-06-24 17:39 | XR ---
EXAM DATE: 06/24/2018 5:33 PM EDT AGE/SEX: 62 years / Male INDICATIONS: Short of breath. CLINICAL DATA: This is the patient's initial encounter. Patient reports that signs and symptoms have been present for 1 day and indicates a pain score of 0/10. MEDICAL/SURGICAL HISTORY: Non-responsive. Non-responsive. COMPARISON: [facility], XR CHEST PA AND LAT, 03/14/2017. . FINDINGS: A single AP view of the chest demonstrates the lungs to be symmetrically aerated without evidence of mass, infiltrate or effusion. The cardiomediastinal contours are unremarkable. Osseous structures a re intact. CONCLUSION: Negative examination. Electronically signed by: Luis Miguel Olvera MD 06/24/2018 5:38 PM EDT
[2018-06-24 17:47] LABS: Alanine Aminotransferase 24 U/L (12-78)
[2018-06-24 17:49] LABS: Alkaline Phosphatase 112 U/L (45-117); Total Protein 7.5 g/dL (6.4-8.2)
[2018-06-24 17:50] LABS: Activated Partial Thrombo Time 24.7 sec (24.3-30.1)
[2018-06-24 17:56] LABS: Baso # (Auto) 0.1 th/mm3 (0.0-0.2); Baso % (Auto) 0.8 % (0.0-2.0); Eos # (Auto) 0.5 th/mm3 (0.0-0.4); Eos % (Auto) 4.9 % (0.0-4.0); Hematocrit 34.8 % (39.0-51.0); Hemoglobin 11.4 gm/dL (13.0-17.0); Lymph # (Auto) 2.4 th/mm3 (1.0-4.8); Lymph % (Auto) 25.5 % (9.0-44.0); Mean Corpuscular HGB Conc 32.8 % (32.0-36.0); Mean Corpuscular Hemoglobin 28.1 pg (27.0-34.0); Mean Corpuscular Volume 85.5 fL (80.0-100.0); Mean Platelet Volume 9.8 fL (7.0-11.0); Mono # (Auto) 0.5 th/mm3 (0.0-0.9); Mono % (Auto) 5.5 % (0.0-8.0); Neut # (Auto) 5.9 th/mm3 (1.8-7.7); Neut % (Auto) 63.3 % (16.0-70.0); Platelet Count 262 th/mm3 (150-450); Red Blood Count 4.07 mil/mm3 (4.50-5.90); Red Cell Distribution Width 16.4 % (11.6-17.2); White Blood Count 9.3 th/mm3 (4.0-11.0)
--- NOTE | 2018-06-24 17:56 | CT ---
EXAM DATE: 06/24/2018 5:50 PM EDT AGE/SEX: 62 years / Male INDICATIONS: Left sided facial droop, right hand weakness and difficulty walking. CLINICAL DATA: This is the patient's initial encounter. Patient reports that signs and symptoms have been present for 1 day and indicates a pain score of 0/10. MEDICAL/SURGICAL HISTORY: Diabetes. Hypertension. None. RADIATION DOSE: 56.35 CTDI (mGy) [place] [facility] [place]24[place]. . TECHNIQUE: CT of the head without contrast. Using automated exposure control and adjustment of the mA and/or kV according to patient size, radiation dose was kept as low as reasonably achievable to ob tain optimal diagnostic quality images. DICOM format image data is available electronically for revi ew and comparison. FINDINGS: Ventricles and cisterns are of normal size and configuration. No signs of intracranial hemorrhage or mass. Patchy periventricular white matter disease is noted. There are bilateral basal ganglia lacunar infarcts now identified. There are no fractures. CONCLUSION: 1. Since the previous study there has been development of white matter disease as well as multiple l acunar infarcts in the basal ganglia bilaterally. 2. No definite acute findings. . Electronically signed by: Luis Miguel Olvera MD 06/24/2018 5:55 PM EDT
[2018-06-24 17:58] LABS: Albumin 3.5 g/dL (3.4-5.0); Anion Gap 6 meq/L (5-15); Blood Urea Nitrogen 14 mg/dL (7-18); Calcium 8.8 mg/dL (8.5-10.1); Chloride 104 meq/L (98-107); Glomerular Filtration Rate Greater Than 89 mL/min (>89); Glucose,Random 217 mg/dL (74-106); Sodium 137 meq/L (136-145)
[2018-06-24 17:59] LABS: Creatine Kinase 196 U/L (39-308)
[2018-06-24 18:00] LABS: Aspartate Aminotransferase 65 U/L (15-37); Potassium 5.8 meq/L (3.5-5.1)
[2018-06-24] MEDS ORDERED: Aspirin 325 MG Tablet PO ONE (18:09)
[2018-06-24 18:11] LABS: Creatine Kinase MB 1.9 ng/mL (0.5-3.6)
[2018-06-24] MEDS ORDERED: Bisacodyl 10 MG Supp RECTAL PRN (18:57)
[2018-06-24 19:06] LABS: Bilirubin,Urine Negative (Negative); Clarity,Urine Clear (Clear); Color,Urine Straw (Yellw/Straw); Glucose,Urine (UA) 500 or Greater mg/dL (Negative); Leukocyte Esterase,Urine Negative (Negative); Nitrite,Urine Negative (Negative); Specific Gravity,Urine 1.009 (1.002-1.035); Squamous Epithelial Cell,Urine <1 /hpf (0-5)
[2018-06-24 19:11] LABS: Amphetamine Screen,Urine Neg (Neg); Barbiturate Screen,Urine Neg (Neg); Cannabinoid Screen,Urine Neg (Neg); Cocaine Screen,Urine Neg (Neg)
[2018-06-24 19:12] LABS: Opiate Screen,Urine Neg (Neg)
[2018-06-24] MEDS ORDERED: Dextrose 50% in Water 50 ML Vial IV.PUSH PRN (19:41)
--- NOTE | 2018-06-24 19:55 | P.HPIM ---
History of Present Illness Primary Care Physician: UNKNOWN History of Present Illness: 62 y/o male with a history of HTN and DM presented to the ED with stroke like symptoms. Patient states he went to bed last night not feeling right and woke up this morning with a facial droop and left sided weakness. Since coming to the ED patient states his symptoms have worsened and he can not move his left side. Denies any chest pain, sob, fever, chills, dizziness, headaches or blurred vision. Inpatient Certification: I certify that the inpatient services were ordered in accordance with Medicare regulations governing the order. This includes certification that hospital inpatient services are reasonable and necessary and in the case of services not specified as inpatient-only under 42 CFR 419.22(n), that they are appropriately provided as inpatient services in accordance to with the 2-midnight benchmark under 43 CFR 412.3(e) Estimated Total Length of Stay (Days): 3 Plans for Post Hospital Care: Home Review of Systems All other systems reviewed negative except as stated in HPI PMFSH - History History Provided By: Patient - Medical History Medical History: Medical History (Last Updated 06/24/18 @ 20:29 by SHELBY Welch) Diabetes mellitus HTN (hypertension) No significant past surgical history - Surgical History Surgical History: Surgical History (Last Updated 06/24/18 @ 20:29 by SHELBY Welch) No significant past surgical history - Family History Family History: Family History (Last Updated 06/24/18 @ 20:29 by SHELBY Welch) Mother CVA (cerebral vascular accident) HTN (hypertension) - Tobacco History Second Hand Smoke Exposure: No Tobacco Use In Past 30 Days: No Smoking Status: Current every day smoker Tobacco Type: Cigarettes - Alcohol History How Often Do You Have a Drink Containing Alcohol: Never - Substance Use History Substance History: No History of Abuse - Travel History Recent Travel in the [place] Within the Last 8 Weeks: No Recent Travel Out of the Country Within the Last 8 Weeks: No - Immunization History Tetanus Immunization: Unable to Assess Hx Influenza Vaccine This Season: No Medications and Allergies Active Medications: Active Medications Al Hydroxide/Mg Hydroxide (Milk Of Magnsarai Liq) 30 ml PO Q12H PRN PRN Reason: Mild Constipation Bisacodyl (Dulcolax Supp) 10 mg RECTAL DAILY PRN PRN Reason: SEVERE CONSITIPATION Dextrose (D50w Vial) 50 ml IV.PUSH UNSCH PRN PRN Reason: PER HYPOGLYCEMIA PROTOCOL Glucagon (Glucagon Inj) 1 mg OTHER PRN PRN PRN Reason: for Hypoglycemia Protocol Sodium Chloride (Ns Inj) 1,000 mls @ 70 mls/hr IV.CONT .[id number] JADA Stop: 06/25/18 07:17 Insulin Aspart (Novolog Insulin Correctional Sugar Inj) 0 unit SQ ACHS JADA; Protocol Lactulose (Lactulose Liq) 30 ml PO DAILY PRN PRN Reason: SEVERE CONSITIPATION Senna/Docusate Sodium (Claudia-Colace) 1 tab PO BID JADA Sennosides (Senokot) 17.2 mg PO Q12H PRN PRN Reason: Moderate Constipation Sodium Chloride (Ns Flush) 2 ml IV.FLUSH PRN PRN PRN Reason: FLUSH AFTER USING IV ACCESS Allergies Allergy/AdvReac Type Severity Reaction Status Date / Time No Known Allergies AdvReac Unknown Uncoded 02/17/18 16:41 Home Medications Medication Instructions Recorded Confirmed Type Unable to Obtain Home Meds 06/24/18 06/24/18 History Exam Vital signs: Vital Signs 06/24/18 16:43 06/24/18 16:50 06/24/18 16:54 Temperature 97.5 F L Pulse Rate 83 84 Respiratory Rate 18 18 Blood Pressure 176/79 H 194/86 H Pulse Oximetry 99 95 96 06/24/18 17:33 06/24/18 19:34 Temperature Pulse Rate 78 Respiratory Rate 18 16 Blood Pressure 157/77 H Pulse Oximetry 95 Intake & Output 06/24/18 06/24/18 06/25/18 06:59 18:59 06:59 Weight 61.235 kg Narrative: GENERAL: This is a well-nourished, well-developed patient. SKIN: Warm, dry and intact CARDIOVASCULAR: Regular rate and rhythm without murmurs, gallops, or rubs. RESPIRATORY: Clear to auscultation. Breath sounds equal bilaterally. No wheezes , rales, or rhonchi. GASTROINTESTINAL: Abdomen soft, non-tender, nondistended. Normal active bowel sounds MUSCULOSKELETAL: Extremities without clubbing, cyanosis, or edema. NEURO: Alert & Oriented x4 to person, place, time, situation. Flaccid LUE and LLE, left facial droop, slurred speech. Results - Labs CBC & Chem 7: 06/24/18 17:05 06/24/18 17:05 Labs: Short CBC 06/24/18 Range/Units 17:05 WBC 9.3 (4.0-11.0) th/mm3 Hgb 11.4 L (13.0-17.0) gm/dL Hct 34.8 L (39.0-51.0) % Plt Count 262 (150-450) th/mm3 BMP 06/24/18 17:05 Sodium 137 Potassium 5.8 H Chloride 104 Carbon Dioxide 27.0 BUN 14 Creatinine 0.78 Calcium 8.8 Cardiac Enzymes 06/24/18 Range/Units 17:05 Total Creatine Kinase 196 (39-308) U/L CK-MB (CK-2) 1.9 (0.5-3.6) ng/mL Troponin I Less than 0.02 L (0.02-0.05) ng/mL Liver Function 06/24/18 Range/Units 17:05 Total Bilirubin 0.3 (0.2-1.0) mg/dL AST 65 H (15-37) U/L ALT 24 (12-78) U/L Alkaline Phosphatase 112 (45-117) U/L Albumin 3.5 (3.4-5.0) g/dL Urine 06/24/18 Range/Units 18:42 Urine Color Straw (Yellw/Straw) Urine Clarity Clear (Clear) Urine pH 6.0 (5.0-8.5) Ur Specific [place] 1.009 (1.002-1.035) Urine Protein 100 H (Neg-Trace) mg/dL Urine Glucose (UA) 500 or greater (Negative) mg/dL - Imaging Impressions Chest X-Ray 06/24/18 16:51 CONCLUSION: Negative examination. Head CT 06/24/18 16:52 CONCLUSION: 1. Since the previous study there has been development of white matter disease as well as multiple lacunar infarcts in the basal ganglia bilaterally. 2. No definite acute findings. . Caprini VTE Risk Assessment Caprini VTE Risk Assessment: Moderate/High Risk (score >= 2) Caprini Risk Assessment Model: Point Value = 1 Point Value = 2 Point Value = 3 Point Value = 5 Age 41-60 Minor surgery BMI > 25 kg/m2 Swollen legs Varicose veins or History of unexplained or recurrent spontaneous Oral contraceptives or hormone replacement Sepsis (< 1 month) Serious lung disease, including pneumonia (< 1 month) Abnormal pulmonary function Acute myocardial infarction Congestive heart failure (< 1 month) History of inflammatory bowel disease Medical patient at bed rest Age 61-74 Arthroscopic surgery Major open surgery (> 45 min) Laparoscopic surgery (> 45 min) Malignancy Confined to bed (> 72 hours) Immobilizing plaster cast Central venous access Age >= 75 History of VTE Family history of VTE Factor V Leiden Prothrombin [id number] Lupus anticoagulant Anticardiolipin antibodies Elevated serum homocysteine Heparin-induced thrombocytopenia Other congenital or acquired thrombophilia Stroke (< 1 month) Elective arthroplasty Hip, pelvis, or leg fracture Acute spinal cord injury (< 1 month) Prophylaxis Regimen: Total Risk Factor Score Risk Level Prophylaxis Regimen 0-1 Low Early ambulation 2 Moderate Order ONE of the following: *Sequential Compression Device (SCD) *Heparin 5000 units SQ BID 3-4 Higher Order ONE of the following medications: *Heparin 5000 units SQ TID *Enoxaparin/Lovenox 40 mg SQ daily (WT < 150 kg, CrCl > 30 mL/min) *Enoxaparin/Lovenox 30 mg SQ daily (WT < 150 kg, CrCl > 10-29 mL/min) *Enoxaparin/Lovenox 30 mg SQ BID (WT < 150 kg, CrCl > 30 mL/min) AND/OR *Sequential Compression Device (SCD) 5 or more Highest Order ONE of the following medications: *Heparin 5000 units SQ TID (Preferred with Epidurals) *Enoxaparin/Lovenox 40 mg SQ daily (WT < 150 kg, CrCl > 30 mL/min) *Enoxaparin/Lovenox 30 mg SQ daily (WT < 150 kg, CrCl > 10-29 mL/min) *Enoxaparin/Lovenox 30 mg SQ BID (WT < 150 kg, CrCl > 30 mL/min) AND *Sequential Compression Device (SCD) Assessment and Plan - Plan CVA, ischemic Head CT reviewed and shows multiple lacunar infarcts in the basal ganglia bilaterally -Consult neurology for evaluation -ASA daily -EEG, carotids ordered ordered -Lipid panel and A1C ordered -OT/ST/PT ordered -Atorvastatin PO HS ordered -NPO until swallow study complete DM, chronic -Accu checks with SSI Hypertension, chronic -Allow for permissive hypertension -Reorder home medications in 24 hours DVT prophylaxis: SCDs
[2018-06-24] MEDS: Insulin NovoLOG Aspart Correctional Sugar Inj SQ SCH (22:29)
[2018-06-24] MEDS: Senna/Docusate Sodium 8.6/50 MG Tablet PO SCH (22:29)
[2018-06-25 05:18] LABS: Baso % (Auto) 0.5 % (0.0-2.0); Eos # (Auto) 0.5 th/mm3 (0.0-0.4); Hematocrit 37.2 % (39.0-51.0); Hemoglobin 12.3 gm/dL (13.0-17.0); Lymph # (Auto) 2.2 th/mm3 (1.0-4.8); Lymph % (Auto) 22.7 % (9.0-44.0); Mean Corpuscular Hemoglobin 28.1 pg (27.0-34.0); Mean Platelet Volume 8.9 fL (7.0-11.0); Mono # (Auto) 0.5 th/mm3 (0.0-0.9); Mono % (Auto) 5.2 % (0.0-8.0); Neut # (Auto) 6.4 th/mm3 (1.8-7.7); Neut % (Auto) 66.6 % (16.0-70.0); Platelet Count 250 th/mm3 (150-450); Red Blood Count 4.38 mil/mm3 (4.50-5.90); Red Cell Distribution Width 16.4 % (11.6-17.2); White Blood Count 9.5 th/mm3 (4.0-11.0)
[2018-06-25 05:46] LABS: Alanine Aminotransferase 19 U/L (12-78); Albumin 3.4 g/dL (3.4-5.0); Alkaline Phosphatase 108 U/L (45-117); Anion Gap 9 meq/L (5-15); Aspartate Aminotransferase 16 U/L (15-37); Blood Urea Nitrogen 10 mg/dL (7-18); Calcium 8.6 mg/dL (8.5-10.1); Carbon Dioxide 27.1 meq/L (21.0-32.0); Chloride 106 meq/L (98-107); Chol/HDL Ratio 3.77 Ratio; Cholesterol 160 mg/dL (120-200); Glomerular Filtration Rate Greater Than 89 mL/min (>89); Glucose,Random 187 mg/dL (74-106); HDL Cholesterol 42.4 mg/dL (40.0-60.0); LDL Cholesterol,Calculated 90 mg/dL (0-99); Potassium 3.4 meq/L (3.5-5.1); Sodium 142 meq/L (136-145); Triglycerides 137 mg/dL (42-150)
[2018-06-25] MEDS: Aspirin 325 MG Tablet PO SCH (09:32)
[2018-06-25] MEDS: Senna/Docusate Sodium 8.6/50 MG Tablet PO SCH ×2 (09:32→22:37)
[2018-06-25] MEDS: Insulin NovoLOG Aspart Correctional Sugar Inj SQ SCH ×4 (09:32→21:40)
[2018-06-25] MEDS: Aspirin 300 MG Supp RECTAL SCH (09:41)
[2018-06-25] MEDS: Heparin - SQ 10,000 UNITS/ML Vial SQ SCH ×2 (09:41→21:31)
--- NOTE | 2018-06-25 10:46 | ECG ---
Date Performed: 06/24/2018 Time Performed: 16:46:24 PTAGE: 62 years EKG: Sinus rhythm MARKED LEFT AXIS DEVIATION NONSPECIFIC T-WAVE ABNORMALITY ABNORMAL ECG NO PREVIOUS TRACING DOCTOR: Aidan Duran Interpretating Date/Time 06/25/2018 10:43:53
--- NOTE | 2018-06-25 11:25 | P.PN ---
Subjective Interval history: Follow-up visit acute CVA, HTN, DM. Patient seen and examined today. Reports he is doing well. Both slurred speech. States no changes in vision. Sensory motor is intact. Left upper extremity flaccid, left lower extremity flaccid. Able to follow commands. Awake and alert. Oriented to time, place, person. Denies pain and discomfort. Denies SOB/ dyspnea. Denies chest pain, palpitations, headaches, dizziness. Denies fevers, chills, n/v/d. Denies dysuria. Physical Exam Vital signs: Vital Signs 06/24/18 16:43 06/24/18 16:50 06/24/18 16:54 Temperature 97.5 F L Pulse Rate 83 84 Respiratory Rate 18 18 Blood Pressure 176/79 H 194/86 H Pulse Oximetry 99 95 96 06/24/18 17:33 06/24/18 19:34 06/24/18 20:00 Temperature 98.0 F Pulse Rate 78 81 Respiratory Rate 18 16 16 Blood Pressure 157/77 H 153/72 H Pulse Oximetry 95 99 06/25/18 00:00 06/25/18 00:44 06/25/18 02:33 Temperature Pulse Rate 74 70 90 Respiratory Rate 18 17 Blood Pressure 159/77 H 157/76 H Pulse Oximetry 99 100 06/25/18 03:12 06/25/18 04:11 06/25/18 05:11 Temperature 98 F Pulse Rate 90 82 78 Respiratory Rate 17 16 16 Blood Pressure 157/76 H 150/74 H 154/74 H Pulse Oximetry 100 100 06/25/18 06:11 Temperature 98 F Pulse Rate 80 Respiratory Rate 16 Blood Pressure 158/75 H Pulse Oximetry 100 Intake & Output 06/24/18 06/25/18 06/25/18 18:59 06:59 18:59 Weight 61.235 kg 61.235 kg Other: Date of Last Bowel Movement 06/24/18 Weight On Admission 61.235 kg Narrative: GENERAL: This is a well-nourished, well-developed patient, in no apparent distress. SKIN: Warm and dry HEENT: Normocephalic. Pupils equal round and reactive. Nose without bleeding. Airway patent. Left facial droop NECK: Trachea midline. No JVD. Supple. CARDIOVASCULAR: Regular rate and rhythm without murmurs, gallops, or rubs. RESPIRATORY: Diminished bases. No wheezes, rales, or rhonchi. GASTROINTESTINAL: Abdomen soft, non-tender, nondistended. Bowel Sounds normoactive x4. MUSCULOSKELETAL: Extremities without clubbing, cyanosis, or edema. Left upper extremity, lower extremity flaccid NEUROLOGICAL: Awake and alert. Oriented to time, place, person. left Hemiplegia. Slurred speech. Results - Labs CBC & Chem 7: 06/25/18 04:00 06/25/18 04:00 Laboratory Results - last 24 hr 06/24/18 06/24/18 06/24/18 17:05 17:05 17:05 WBC 9.3 RBC 4.07 L Hgb 11.4 L Hct 34.8 L MCV 85.5 MCH 28.1 MCHC 32.8 RDW 16.4 Plt Count 262 MPV 9.8 Neut % (Auto) 63.3 Lymph % (Auto) 25.5 [place] % (Auto) 5.5 Eos % (Auto) 4.9 H Baso % (Auto) 0.8 Neut # (Auto) 5.9 Lymph # (Auto) 2.4 [place] # (Auto) 0.5 Eos # (Auto) 0.5 H Baso # (Auto) 0.1 WBC Differential . Differential Comment Auto diff final ESR PT 10.0 INR 1.0 APTT 24.7 Sodium 137 Potassium 5.8 H Chloride 104 Carbon Dioxide 27.0 Anion Gap 6 BUN 14 Creatinine 0.78 Estimated GFR Greater than 89 POC Glucose Random Glucose 217 H Calcium 8.8 Total Bilirubin 0.3 AST 65 H ALT 24 Alkaline Phosphatase 112 Total Creatine Kinase CK-MB (CK-2) Troponin I Total Protein 7.5 Albumin 3.5 Triglycerides Cholesterol LDL Cholesterol, Calc HDL Cholesterol Cholesterol/HDL Ratio Urine Color Urine Clarity Urine pH Ur Specific [place] Urine Protein Urine Glucose (UA) Urine Ketones Urine Occult Blood Urine Nitrate Urine Bilirubin Urine Urobilinogen Ur Leukocyte Esterase Urine RBC Urine WBC Ur Squamous Epith Cells Micro UA Comment Ur Microscopic Review Urine Culture Comments Urine Opiates Screen Ur Barbiturates Screen Ur Amphetamines Screen U Benzodiazepines Scrn Urine Cocaine Screen U Cannabinoids Screen Serum Alcohol Less than 3 Blood Type Blood Type Recheck Antibody Screen 06/24/18 06/24/18 06/24/18 17:05 18:42 18:42 WBC RBC Hgb Hct MCV MCH MCHC RDW Plt Count MPV Neut % (Auto) Lymph % (Auto) [place] % (Auto) Eos % (Auto) Baso % (Auto) Neut # (Auto) Lymph # (Auto) [place] # (Auto) Eos # (Auto) Baso # (Auto) WBC Differential Differential Comment ESR PT INR APTT Sodium Potassium Chloride Carbon Dioxide Anion Gap BUN Creatinine Estimated GFR POC Glucose Random Glucose Calcium Total Bilirubin AST ALT Alkaline Phosphatase Total Creatine Kinase 196 CK-MB (CK-2) 1.9 Troponin I Less than 0.02 L Total Protein Albumin Triglycerides Cholesterol LDL Cholesterol, Calc HDL Cholesterol Cholesterol/HDL Ratio Urine Color Straw Urine Clarity Clear Urine pH 6.0 Ur Specific [place] 1.009 Urine Protein 100 H Urine Glucose (UA) 500 or greater Urine Ketones Negative Urine Occult Blood Small H Urine Nitrate Negative Urine Bilirubin Negative Urine Urobilinogen Less than 2 Ur Leukocyte Esterase Negative Urine RBC 1 Urine WBC Less than 1 Ur Squamous Epith Cells <1 Micro UA Comment Culture not ind Ur Microscopic Review Not Reportable Urine Culture Comments Culture not ind Urine Opiates Screen Neg Ur Barbiturates Screen Neg Ur Amphetamines Screen Neg U Benzodiazepines Scrn Neg Urine Cocaine Screen Neg U Cannabinoids Screen Neg Serum Alcohol Blood Type Blood Type Recheck Antibody Screen 06/24/18 06/25/18 06/25/18 22:19 02:32 04:00 WBC RBC Hgb Hct MCV MCH MCHC RDW Plt Count MPV Neut % (Auto) Lymph % (Auto) [place] % (Auto) Eos % (Auto) Baso % (Auto) Neut # (Auto) Lymph # (Auto) [place] # (Auto) Eos # (Auto) Baso # (Auto) WBC Differential Differential Comment ESR PT INR APTT Sodium Potassium Chloride Carbon Dioxide Anion Gap BUN Creatinine Estimated GFR POC Glucose 155 H 177 H Random Glucose Calcium Total Bilirubin AST ALT Alkaline Phosphatase Total Creatine Kinase CK-MB (CK-2) Troponin I Total Protein Albumin Triglycerides Cholesterol LDL Cholesterol, Calc HDL Cholesterol Cholesterol/HDL Ratio Urine Color Urine Clarity Urine pH Ur Specific [place] Urine Protein Urine Glucose (UA) Urine Ketones Urine Occult Blood Urine Nitrate Urine Bilirubin Urine Urobilinogen Ur Leukocyte Esterase Urine RBC Urine WBC Ur Squamous Epith Cells Micro UA Comment Ur Microscopic Review Urine Culture Comments Urine Opiates Screen Ur Barbiturates Screen Ur Amphetamines Screen U Benzodiazepines Scrn Urine Cocaine Screen U Cannabinoids Screen Serum Alcohol Blood Type O Positive Blood Type Recheck Required Antibody Screen Negative 0806/25/18 06/25/18 04:00 04:00 09:55 WBC 9.5 RBC 4.38 L Hgb 12.3 L Hct 37.2 L MCV 85.0 MCH 28.1 MCHC 33.0 RDW 16.4 Plt Count 250 MPV 8.9 Neut % (Auto) 66.6 Lymph % (Auto) 22.7 [place] % (Auto) 5.2 Eos % (Auto) 5.0 H Baso % (Auto) 0.5 Neut # (Auto) 6.4 Lymph # (Auto) 2.2 [place] # (Auto) 0.5 Eos # (Auto) 0.5 H Baso # (Auto) 0.0 WBC Differential . Differential Comment Auto diff final ESR PT INR APTT Sodium 142 Potassium 3.4 L D Chloride 106 Carbon Dioxide 27.1 Anion Gap 9 BUN 10 Creatinine 0.74 Estimated GFR Greater than 89 POC Glucose 188 H Random Glucose 187 H Calcium 8.6 Total Bilirubin 0.4 AST 16 ALT 19 Alkaline Phosphatase 108 Total Creatine Kinase CK-MB (CK-2) Troponin I Total Protein 7.0 Albumin 3.4 Triglycerides 137 Cholesterol 160 LDL Cholesterol, Calc 90 HDL Cholesterol 42.4 Cholesterol/HDL Ratio 3.77 Urine Color Urine Clarity Urine pH Ur Specific [place] Urine Protein Urine Glucose (UA) Urine Ketones Urine Occult Blood Urine Nitrate Urine Bilirubin Urine Urobilinogen Ur Leukocyte Esterase Urine RBC Urine WBC Ur Squamous Epith Cells Micro UA Comment Ur Microscopic Review Urine Culture Comments Urine Opiates Screen Ur Barbiturates Screen Ur Amphetamines Screen U Benzodiazepines Scrn Urine Cocaine Screen U Cannabinoids Screen Serum Alcohol Blood Type Blood Type Recheck Antibody Screen 06/25/18 10:28 WBC RBC Hgb Hct MCV MCH MCHC RDW Plt Count MPV Neut % (Auto) Lymph % (Auto) [place] % (Auto) Eos % (Auto) Baso % (Auto) Neut # (Auto) Lymph # (Auto) [place] # (Auto) Eos # (Auto) Baso # (Auto) WBC Differential Differential Comment ESR 30 H PT INR APTT Sodium Potassium Chloride Carbon Dioxide Anion Gap BUN Creatinine Estimated GFR POC Glucose Random Glucose Calcium Total Bilirubin AST ALT Alkaline Phosphatase Total Creatine Kinase CK-MB (CK-2) Troponin I Total Protein Albumin Triglycerides Cholesterol LDL Cholesterol, Calc HDL Cholesterol Cholesterol/HDL Ratio Urine Color Urine Clarity Urine pH Ur Specific [place] Urine Protein Urine Glucose (UA) Urine Ketones Urine Occult Blood Urine Nitrate Urine Bilirubin Urine Urobilinogen Ur Leukocyte Esterase Urine RBC Urine WBC Ur Squamous Epith Cells Micro UA Comment Ur Microscopic Review Urine Culture Comments Urine Opiates Screen Ur Barbiturates Screen Ur Amphetamines Screen U Benzodiazepines Scrn Urine Cocaine Screen U Cannabinoids Screen Serum Alcohol Blood Type Blood Type Recheck Antibody Screen - Imaging Impressions Chest X-Ray 06/24/18 16:51 CONCLUSION: Negative examination. Head CT 06/24/18 16:52 CONCLUSION: 1. Since the previous study there has been development of white matter disease as well as multiple lacunar infarcts in the basal ganglia bilaterally. 2. No definite acute findings. . Assessment and Plan - Plan 62 y/o male with a history of HTN and DM presented to the ED with stroke like symptoms. Patient woke up with a facial droop and left sided weakness CVA, ischemic Head CT reviewed and shows multiple lacunar infarcts in the basal ganglia bilaterally -MRI of the head showed focal acute area of nonhemorrhagic infarction involving the deep mid right parietal region adjacent to the right lateral ventricle. Mild chronic white matter change are noted bilaterally -Head MRA showed concentric moderate stenosis of the distal left NE segment. No evidence for large vessel occlusion. -Neck MRA showed negative MRA carotid -Carotid Doppler study showed no evidence for hemodynamically significant stenosis -Consult neurology for evaluation, appreciate recommendation. Recommends n.p.o. for now. Coagulopathy studies. -ASA 325 daily, rectal -EEG ordered -Lipid panel and A1C ordered -OT/ST/PT ordered -Atorvastatin PO HS ordered -NPO until swallow study complete. Speech to evaluate. DM, chronic -Accu checks with SSI -Check hemoglobin A1c Hypertension, chronic -Allow for permissive hypertension -Reorder home medications in 24 hours DVT prophylaxis heparin subcu Code Status: Full code Discussed Condition With: Patient, nursing Discharge Planning: Plan to DC to SNF when clinically improved.
[2018-06-25] MEDS ORDERED: Gadobutrol PF 10 MMOL/10 ML Vial (for RAD) IV.SIG ONE (11:30)
--- NOTE | 2018-06-25 11:53 | MR ---
EXAM DATE: 06/25/2018 11:33 AM EDT AGE/SEX: 62 years / Male INDICATIONS: CVA. Left sided facial droop. CLINICAL DATA: This is the patient's initial encounter. Patient reports that signs and symptoms have been present for 1 day and indicates a pain score of 0/10. MEDICAL/SURGICAL HISTORY: Hypertension. Diabetes mellitus type II. None. COMPARISON: [facility] [place] HEAD W & W/O CONTRAST, 06/25/2018. . TECHNIQUE: 3D [id number] MRA was performed. Source images, multiplanar STS MIP, and 3D volum e MIP reconstructions were reviewed. FINDINGS: Anterior Circulation: Intracranial Carotid Arteries: Patent. KYRA: There is no evidence for aneurysm, vessel truncation or stenosis, and no evidence for vascular m alformation. MCA: Concentric moderate stenosis of the distal left M1 segment. MCA branches are otherwise patent wi thout evidence for large vessel occlusion. Posterior Circulation: Distal Vertebral Arteries: Distal Vertebral arteries are symetrical and patent. Basilar Artery: There is no evidence for aneurysm, vessel truncation or stenosis, and no evidence for vascular malformation. COOKER TENDER and Cerebellar Branches: There is no evidence for aneurysm, vessel truncation or stenosis, and no evidence for vascular malformation. CONCLUSION: 1. Concentric moderate stenosis of the distal left M1 segment. 2. No evidence for large vessel occlusion. Electronically signed by: Berry Gillis MD 06/25/2018 11:51 AM EDT
[2018-06-25 11:58] LABS: Free T4 (Free Thyroxine) 0.99 ng/dL (0.76-1.46); Thyroid Stimulating Hormone 2.09 uIU/mL (0.358-3.740)
--- NOTE | 2018-06-25 12:16 | MB ---
cc: Corona Clements MD DATE: 06/25/2018 HISTORY OF PRESENT ILLNESS: This is a 62-year-old right-handed man with a history of hypertension, non-insulin diabetes, hypercholesterolemia, and schizophrenia, who lives with his mother. Evidently yesterday, he woke up at about 11 a.m., had some facial droop, came into the ER with a left pronator drift, and it seemed to get worse over the course of the day in the ER, and this morning quite weak on the left side. SOCIAL HISTORY: He is a smoker, occasionally he has a drink. No drugs. Lives with his mother. Does not work. FAMILY HISTORY: Negative for cancer or seizure. Positive stroke in his brother at young age. REVIEW OF SYSTEMS: No history of insulin, CT, CABG, stent, angioplasty, A-fib, Coumadin; renal, hepatic, or pulmonary disease; thyroid disease, lupus, ulcer, cancer, seizure, or stroke. MEDICATIONS AT HOME: He is supposed to be on metformin, blood pressure medication, does not take them evidently. MEDICATIONS HERE: He is on: 1. Aspirin 325. 2. Calcium. 3. Glucagon. 4. Insulin. PHYSICAL EXAMINATION: VITAL SIGNS: Sinus rhythm, afebrile, 80, 16, 158/75. Highest blood pressure 194/86. NECK: There are no carotid bruits. HEART: Regular rhythm and a 1/6 systolic ejection murmur. NEUROLOGIC: Pupils were equal. It is hard to say on his visual field, seems to see to the left. He has a left facial droop. He is hypophonic. He sticks his tongue out slightly, moves the right side well. He is 0/5 in the left upper extremity, about 1/5 in the left lower extremity. Toes downgoing bilaterally. DTRs absent throughout. He is awake and alert. He does not appear to be aphasic and follows some commands. LABORATORY DATA: Cell count is normal. Urine drug screen negative. UA negative. Basic metabolic profile essentially normal. Glucose was 217. LFTs are essentially normal. CPK, troponin, cholesterol, and LDL normal. Coags are normal. DIAGNOSTIC DATA: CAT scan shows 2 old lacunar-type infarcts; one on each side of the brain. EKG shows sinus rhythm. Chest x-ray negative. IMPRESSION: Right hemisphere infarct more than likely. PLAN: What I have recommended is an MRI of the brain, MRA of the neck and [employer] [facility] [place], and echocardiogram. For now, we will put him on aspirin. It looks like probably he will need a rectal aspirin and, considering his young age, we can do a hypercoagulable screen; although, he is at high risk for major risk factors for small-vessel disease also. Will have PT see him. Put him on a little bit of subcutaneous heparin. I will be following him with you in the hospital. Right now I would not say he is safe to swallow. MD JAYJAY Johnston/ntaacha , 08:28 AM , 08:35 AM
--- NOTE | 2018-06-25 13:12 | MR ---
EXAM DATE: 06/25/2018 12:02 PM EDT AGE/SEX: 62 years / Male INDICATIONS: Stroke. Left sided facial droop. CLINICAL DATA: This is the patient's initial encounter. Patient reports that signs and symptoms have been present for 1 day and indicates a pain score of 0/10. MEDICAL/SURGICAL HISTORY: Diabetes mellitus type II. Hypertension. None. COMPARISON: No prior exams available for comparison. TECHNIQUE: 10 ml Gadavist (gadobutrol) contrast infused MRA (cumulative dose for multiple exams) of the extracranial circulation was performed using a neurovascular coil. Postprocessing was performed , including rotating sub-volume maximum intensity projections of each carotid artery, rotating full-v olume maximum intensity projections of both carotid arteries, sagittal and coronal sliding thin-slab reformations of each carotid artery, and left oblique sliding thin-slab reformation through the aorti c arch to include the origin of the arch branch vessels. FINDINGS: Aortic Arch : There is a bovine arch. No evidence of ostial narrowing. Right Carotid : The common carotid artery is intact. The carotid bulb has a normal configuration wi thout ulceration or narrowing. The internal carotid artery lumen is smooth without stenosis. The ex ternal carotid artery is intact. Left Carotid : The common carotid artery is intact. The carotid bulb has a normal configuration wit hout ulceration or narrowing. The internal carotid artery lumen is smooth without stenosis. The ext ernal carotid artery is intact. Vertebrals : The vertebral arteries have a symmetric diameter. No stenotic lesions are seen. CONCLUSION: 1. Negative MRA Carotids. Percent stenosis is calculated using the diameter of the stenotic region over the diameter of the nor mal distal internal carotid artery Electronically signed by: James Cortes MD 06/25/2018 1:10 PM EDT
--- NOTE | 2018-06-25 13:39 | MR ---
EXAM DATE: 06/25/2018 11:46 AM EDT AGE/SEX: 62 years / Male INDICATIONS: CVA. Left facial droop. CLINICAL DATA: This is the patient's initial encounter. Patient reports that signs and symptoms have been present for 1 day and indicates a pain score of 0/10. MEDICAL/SURGICAL HISTORY: Hypertension. Diabetes mellitus type II. None. COMPARISON: No prior exams available for comparison. TECHNIQUE: Multiplanar, multisequence examination of the brain was performed without and with 10 ml G adavist (gadobutrol) contrast as a cumulative dose for multiple exams. FINDINGS: Cerebrum: The ventricles are normal for age. No evidence of midline shift, mass lesion, hemorrhage. There is a focal area of acute infarction involving the deep mid right parietal region adjacent to t he right lateral ventricle. This is best seen on the diffusion-weighted images. The area of infarctio n measures approximately 2.1 cm in its AP length.. No extraaxial fluid collections are seen. The pi tuitary gland and suprasellar cistern are normal in configuration. White Matter: Mild bilateral chronic white matter changes are demonstrated. This characteristic for patient's age. Posterior Fossa: The cerebellum and brainstem are intact. The 4th ventricle is midline. The cerebel lopontine angle is unremarkable. The cerebellar tonsils are normal in position. Diffusion Imaging: Focal area of restricted diffusion is noted in the deep right mid posterior parie marisela lobe adjacent to the right lateral ventricle measuring 2.1 cm in its AP dimension. This is Consis tent with an acute focal infarct. Extracranial: The visualized portions of the orbits and paranasal sinuses are unremarkable. Post Contrast: No abnormal areas of parenchymal or dural enhancement. No evidence of blood-brain ba rrier breakdown. CONCLUSION: 1. Focal acute area of nonhemorrhagic infarction involving the deep mid right parietal region adjace nt to the right lateral ventricle. 2. Mild chronic white matter changes are noted bilaterally. Electronically signed by: Bahman Yanez MD 06/25/2018 1:37 PM EDT
--- NOTE | 2018-06-25 14:10 | US ---
EXAM DATE: 06/25/2018 2:04 PM EDT AGE/SEX: 62 years / Male INDICATIONS: Facial droop. Left sided weakness. CLINICAL DATA: This is the patient's initial encounter. Patient reports that signs and symptoms have been present for 1 day and indicates a pain score of 0/10. MEDICAL/SURGICAL HISTORY: Diabetes. Hypertension. None. COMPARISON: No prior exams available for comparison. VELOCITY PARAMETERS: ICA/CCA Ratio: Right 1.1 , Left 1.3 ICA: Right 87 cm/sec, Left 95 cm/sec CCA: Right 81 cm/sec, Left 73 cm/sec ECA: Right 85 cm/sec, Left 89 cm/sec Vertebral: Right 70 cm/sec antegrade, Left 49 cm/sec antegrade FINDINGS: Antegrade flow is seen in both vertebral arteries. There is mild atherosclerotic plaquing at the orig in of both ICAs without any significant stenosis. Elevated flow velocities and ICA/CCA ratios have been found to correlate with increased degrees of vessel stenosis, calculated as percentage of diameter relative to a normal segment of distal ICA. CONCLUSION: No evidence for hemodynamically significant stenosis. Electronically signed by: Ember Goldman MD 06/25/2018 2:08 PM EDT
--- NOTE | 2018-06-25 15:49 | MG ---
cc: Zaid Epperson MD, PhD TEST NUMBER: [id number] TECHNIQUE: This is a 17-channel EEG. DESCRIPTION: The background rhythm reveals a symmetrical alpha rhythm, frequency is 8 Hz, amplitude 20-30 microvolts. There is some drowsiness and the rhythm is slower in the theta range. Normal sleep is identified in terms of delta activity with some sleep spindles. No lateralizing features are seen. No epileptic features. Photic results in a modest driving response. INTERPRETATION: Normal study in the awake and asleep state. Zaid Epperson MD, PhD GORDY/ct , 03:35 PM , 03:39 PM
--- NOTE | 2018-06-25 16:46 | ECHRPT ---
Indication: Other transient cerebral ischemic attacks and related syndromes CONCLUSIONS The left ventricular systolic function is normal with an estimated ejection fraction in the range of 60-65%. Wall thickness is measured at the upper limits of normal. Normal left ventricular size. There is trace tricuspid valve regurgitation. The estimated pulmonary arterial pressure is 27.3 mmHg. Trace mitral valve regurgitation. BP: / HR: 73 Rhythm: Sinus MEASUREMENTS (Male / Female) Normal Values Technical Quality:Good 2D ECHO LV Diastolic Diameter PLAX 4.2 cm 4.2 - 5.9 / 3.9 - 5.3 cm LV Systolic Diameter PLAX 3.0 cm IVS Diastolic Thickness 1.2 cm 0.6 - 1.0 / 0.6 - 0.9 cm LVPW Diastolic Thickness 1.2 cm 0.6 - 1.0 / 0.6 - 0.9 cm LV Relative Wall Thickness 0.6 RV Internal Dim ED PLAX 2.6 cm LVOT Diameter 2.0 cm LA Systolic Diameter LX 3.4 cm 3.0 - 4.0 / 2.7 - 3.8 cm M-MODE AV Cusp Separation MM 1.9 cm DOPPLER AV Peak Velocity 129.0 cm/s AV Peak Gradient 6.7 mmHg LVOT Peak Velocity 103.0 cm/s LVOT Peak Gradient 4.2 mmHg AV Area Cont Eq pk 2.5 cm Mitral E Point Velocity 77.9 cm/s Mitral A Point Velocity 147.0 cm/s Mitral E to A Ratio 0.5 LV E' Lateral Velocity 6.1 cm/s Mitral E to LV E' Lateral Ratio 12.7 LV E' Septal Velocity 5.5 cm/s Mitral E to LV E' Septal Ratio 14.3 TR Peak Velocity 208.0 cm/s TR Peak Gradient 17.3 mmHg Right Atrial Pressure 10.0 mmHg Pulmonary Artery Systolic Pressu 27.3 mmHg Right Ventricular Systolic Press 27.3 mmHg PV Peak Velocity 117.0 cm/s PV Peak Gradient 5.5 mmHg FINDINGS LEFT VENTRICLE The left ventricular systolic function is normal with an estimated ejection fraction in the range of 60-65%. Wall thickness is measured at the upper limits of normal. Normal left ventricular size. RIGHT VENTRICLE Normal right ventricular size and systolic function. LEFT ATRIUM The left atrial size is normal. RIGHT ATRIUM The right atrial size is normal. ATRIAL SEPTUM Normal atrial septal thickness without atrial level shunting by limited color doppler interrogation. AORTA The aortic root and proximal ascending aorta are normal in size on limited imaging. MITRAL VALVE Trace mitral valve regurgitation. AORTIC VALVE Trileaflet aortic valve. No aortic valve stenosis or regurgitation. TRICUSPID VALVE There is trace tricuspid valve regurgitation. The estimated pulmonary arterial pressure is 27.3 mmHg. PULMONARY VALVE No pulmonary valve regurgitation or stenosis. VESSELS The inferior vena cava is normal in size. PERICARDIUM No pericardial effusion. Abilio Bedolla MD, FACC (Electronically Signed) Final Date:25 June 2018 16:45
[2018-06-25] MEDS: Potassium Chlor 10 mEq Premix 10 MEQ/100 ML PIGGYBACK IV.SIG SCH ×2 (17:47→21:30)
[2018-06-25 22:28] LABS: Hemoglobin A1c 8.7 % (4.3-6.0)
[2018-06-26] MEDS ORDERED: Morphine Inj 4 MG/ML Vial IV.PUSH ONE (01:46)
[2018-06-26 04:20] LABS: Baso % (Auto) 0.5 % (0.0-2.0); Eos # (Auto) 0.2 th/mm3 (0.0-0.4); Eos % (Auto) 2.5 % (0.0-4.0); Hematocrit 35.6 % (39.0-51.0); Hemoglobin 11.7 gm/dL (13.0-17.0); Lymph # (Auto) 1.8 th/mm3 (1.0-4.8); Lymph % (Auto) 19.5 % (9.0-44.0); Mean Corpuscular HGB Conc 32.8 % (32.0-36.0); Mean Corpuscular Hemoglobin 27.8 pg (27.0-34.0); Mean Corpuscular Volume 84.8 fL (80.0-100.0); Mean Platelet Volume 9.1 fL (7.0-11.0); Mono # (Auto) 0.6 th/mm3 (0.0-0.9); Mono % (Auto) 6.6 % (0.0-8.0); Neut # (Auto) 6.5 th/mm3 (1.8-7.7); Neut % (Auto) 70.9 % (16.0-70.0); Platelet Count 271 th/mm3 (150-450); Red Cell Distribution Width 16.7 % (11.6-17.2); White Blood Count 9.2 th/mm3 (4.0-11.0)
[2018-06-26 04:43] LABS: Anion Gap 12 meq/L (5-15); Blood Urea Nitrogen 14 mg/dL (7-18); Calcium 8.4 mg/dL (8.5-10.1); Carbon Dioxide 23.9 meq/L (21.0-32.0); Chloride 106 meq/L (98-107); Glomerular Filtration Rate Greater Than 89 mL/min (>89); Glucose,Random 133 mg/dL (74-106); Potassium 3.8 meq/L (3.5-5.1); Sodium 142 meq/L (136-145)
--- NOTE | 2018-06-26 07:35 | P.PNNEU ---
Subjective Subjective Comments: sr no major change Active Medications: Active Medications Al Hydroxide/Mg Hydroxide (Milk Of Magnesia Liq) 30 ml PO Q12H PRN PRN Reason: Mild Constipation Aspirin (Aspirin) 325 mg PO DAILY [facility] Last Admin: 06/25/18 09:32 Dose: Not Given Aspirin (Aspirin Supp) 300 mg RECTAL DAILY [facility] Last Admin: 06/25/18 09:41 Dose: 300 mg Atorvastatin Calcium (Lipitor) 10 mg PO HS [facility] Last Admin: 06/25/18 22:37 Dose: Not Given Bisacodyl (Dulcolax Supp) 10 mg RECTAL DAILY PRN PRN Reason: SEVERE CONSITIPATION Dextrose (D50w Vial) 50 ml IV.PUSH UNSCH PRN PRN Reason: PER HYPOGLYCEMIA PROTOCOL Glucagon (Glucagon Inj) 1 mg OTHER PRN PRN PRN Reason: for Hypoglycemia Protocol Heparin Sodium (Porcine) (Heparin Inj) 5,000 units SQ Q12HR [facility] Last Admin: 06/25/18 21:31 Dose: 5,000 units Insulin Aspart (Novolog Insulin Correctional Sugar Inj) 0 unit SQ [facility]; Protocol Last Admin: 06/25/18 21:40 Dose: Not Given Lactulose (Lactulose Liq) 30 ml PO DAILY PRN PRN Reason: SEVERE CONSITIPATION Senna/Docusate Sodium (Claudia-Colace) 1 tab PO BID [facility] Last Admin: 06/25/18 22:37 Dose: Not Given Sennosides (Senokot) 17.2 mg PO Q12H PRN PRN Reason: Moderate Constipation Sodium Chloride (Ns Flush) 2 ml IV.FLUSH PRN PRN PRN Reason: FLUSH AFTER USING IV ACCESS Last Admin: 06/25/18 09:41 Dose: 2 ml Allergies/Adverse Reactions: Allergies Allergy/AdvReac Type Severity Reaction Status Date / Time No Known Allergies AdvReac Unknown Uncoded 02/17/18 16:41 Physical Exam Vital signs: Vital Signs 06/25/18 08:00 06/25/18 12:00 06/25/18 12:05 Temperature 98.8 F Pulse Rate 82 87 Respiratory Rate 18 Blood Pressure 161/85 H Pulse Oximetry 100 97 99 06/25/18 16:00 06/25/18 19:46 06/25/18 20:00 Temperature 97.8 F 97.8 F 97.8 F Pulse Rate 81 95 H 87 Respiratory Rate 18 16 16 Blood Pressure 149/77 H 166/85 H 166/85 H Pulse Oximetry 100 99 99 06/25/18 20:20 06/25/18 22:11 06/26/18 00:00 Temperature 98 F 98 F Pulse Rate 88 96 H Respiratory Rate 15 16 Blood Pressure 156/84 H 143/83 H Pulse Oximetry 97 100 100 06/26/18 00:02 06/26/18 02:11 06/26/18 04:00 Temperature 97.9 F 98.6 F Pulse Rate 95 H 84 86 Respiratory Rate 16 Blood Pressure 150/86 H 132/78 Pulse Oximetry 100 99 06/26/18 04:01 06/26/18 06:11 06/26/18 07:23 Temperature 97.7 F Pulse Rate 84 80 89 Respiratory Rate 15 18 Blood Pressure 130/72 122/69 Pulse Oximetry 98 Intake & Output 06/25/18 06/26/18 06/26/18 18:59 06:59 18:59 Intake Total 1000 / 1000 200 / 200 Balance 1000 / 1000 200 / 200 Intake: IV 1000 / 1000 200 / 200 NS Inj 1,000 ML @ 70 mls/hr IV. 1000 / 1000 CONT .[id number] [facility] Rx#:[id number] KCl 10 mEq Premix Inj 10 meq In 200 / 200 100 ml @ 100 mls/hr IV.SIG Q1H [facility] Rx#:[id number] Other: Date of Last Bowel Movement 06/24/18 06/24/18 Narrative: speech louder sticks out tongue mod left droop 0/5 lue and lle - Urinary Catheter Management Indwelling Urethral Catheter Cath placed during this visit: no Objective Laboratory Results - last 24 hr 06/24/18 06/25/18 06/25/18 17:05 09:55 10:28 WBC RBC Hgb Hct MCV MCH MCHC RDW Plt Count MPV Neut % (Auto) Lymph % (Auto) Ray % (Auto) Eos % (Auto) Baso % (Auto) Neut # (Auto) Lymph # (Auto) [place] # (Auto) Eos # (Auto) Baso # (Auto) WBC Differential Differential Comment ESR 30 H Sodium Potassium Chloride Carbon Dioxide Anion Gap BUN Creatinine Estimated GFR POC Glucose 188 H Random Glucose Hemoglobin A1c 8.7 H Calcium Vitamin B12 TSH Free T4 08/06/25/18 06/25/18 10:28 13:26 17:48 WBC RBC Hgb Hct MCV MCH MCHC RDW Plt Count MPV Neut % (Auto) Lymph % (Auto) Ray % (Auto) Eos % (Auto) Baso % (Auto) Neut # (Auto) Lymph # (Auto) [place] # (Auto) Eos # (Auto) Baso # (Auto) WBC Differential Differential Comment ESR Sodium Potassium Chloride Carbon Dioxide Anion Gap BUN Creatinine Estimated GFR POC Glucose 161 H 123 H Random Glucose Hemoglobin A1c Calcium Vitamin B12 332 TSH 2.090 Free T4 0.99 06/25/18 06/26/18 06/26/18 21:38 03:26 03:26 WBC 9.2 RBC 4.20 L Hgb 11.7 L Hct 35.6 L MCV 84.8 MCH 27.8 MCHC 32.8 RDW 16.7 Plt Count 271 MPV 9.1 Neut % (Auto) 70.9 H Lymph % (Auto) 19.5 Ray % (Auto) 6.6 Eos % (Auto) 2.5 Baso % (Auto) 0.5 Neut # (Auto) 6.5 Lymph # (Auto) 1.8 Ray # (Auto) 0.6 Eos # (Auto) 0.2 Baso # (Auto) 0.0 WBC Differential . Differential Comment Auto diff final ESR Sodium 142 Potassium 3.8 Chloride 106 Carbon Dioxide 23.9 Anion Gap 12 BUN 14 Creatinine 0.78 Estimated GFR Greater than 89 POC Glucose 139 H Random Glucose 133 H Hemoglobin A1c Calcium 8.4 L Vitamin B12 TSH Free T4 Review/Management - Review/Management Plan: imp r parietal region deep lacunar type mod size cva mrax2 neg echo neg ldl 90 on asa and rx will be 325 [address] sq hep will need rehab/nhp oob ok fu holter failed swallow eval may need peg could do ngt for a few days then see how he does swallowing first
[2018-06-26] MEDS: Heparin - SQ 10,000 UNITS/ML Vial SQ SCH ×2 (08:53→22:35)
[2018-06-26] MEDS: Aspirin 300 MG Supp RECTAL SCH (08:53)
[2018-06-26] MEDS: Aspirin 325 MG Tablet PO SCH (09:39)
[2018-06-26] MEDS: Senna/Docusate Sodium 8.6/50 MG Tablet PO SCH ×3 (09:39→23:08)
[2018-06-26] MEDS: Insulin NovoLOG Aspart Correctional Sugar Inj SQ SCH ×4 (09:39→22:27)
--- NOTE | 2018-06-26 10:16 | P.PN ---
Subjective Interval history: Follow-up visit acute CVA, HTN, DM. Patient seen and examined today. Patient somewhat drowsy. Responds to questions and commands. Mother and aunt at the bedside. Discussed with patient extensively about need for PEG placement. This has been also discussed with mother and aunt who are at the bedside. Patient failed swallow evaluation continued to have dysphasia. He needs to be supported with his nutrition. Denies pain and discomfort. Denies SOB/ dyspnea. Denies chest pain, headaches, dizziness. Denies fevers, chills, n/v/ d. Denies dysuria. Physical Exam Vital signs: Vital Signs 06/25/18 12:00 06/25/18 12:05 06/25/18 16:00 Temperature 98.8 F 97.8 F Pulse Rate 87 81 Respiratory Rate 18 18 Blood Pressure 161/85 H 149/77 H Pulse Oximetry 97 99 100 06/25/18 19:46 06/25/18 20:00 06/25/18 20:20 Temperature 97.8 F 97.8 F Pulse Rate 95 H 87 Respiratory Rate 16 16 Blood Pressure 166/85 H 166/85 H Pulse Oximetry 99 99 97 06/25/18 22:11 06/26/18 00:00 06/26/18 00:02 Temperature 98 F 98 F Pulse Rate 88 96 H 95 H Respiratory Rate 15 16 Blood Pressure 156/84 H 143/83 H Pulse Oximetry 100 100 06/26/18 02:11 06/26/18 04:00 06/26/18 04:01 Temperature 97.9 F 98.6 F Pulse Rate 84 86 84 Respiratory Rate 16 Blood Pressure 150/86 H 132/78 Pulse Oximetry 100 99 06/26/18 06:11 06/26/18 07:23 06/26/18 08:00 Temperature 97.7 F Pulse Rate 80 89 89 Respiratory Rate 15 18 Blood Pressure 130/72 122/69 Pulse Oximetry 98 98 Intake & Output 06/25/18 06/26/18 06/26/18 18:59 06:59 18:59 Intake Total 1000 / 1000 200 / 200 Balance 1000 / 1000 200 / 200 Intake: IV 1000 / 1000 200 / 200 NS Inj 1,000 ML @ 70 mls/hr IV. 1000 / 1000 CONT .[id number] [facility] Rx#:[id number] KCl 10 mEq Premix Inj 10 meq In 200 / 200 100 ml @ 100 mls/hr IV.SIG Q1H [facility] Rx#:[id number] Other: Date of Last Bowel Movement 06/24/18 06/24/18 06/24/18 Narrative: GENERAL: This is a well-nourished, well-developed patient, in no apparent distress. SKIN: Warm and dry HEENT: Normocephalic. Pupils equal round and reactive. Nose without bleeding. Airway patent. Left facial droop NECK: Trachea midline. No JVD. Supple. CARDIOVASCULAR: Regular rate and rhythm without murmurs, gallops, or rubs. RESPIRATORY: Diminished bases. No wheezes, rales, or rhonchi. GASTROINTESTINAL: Abdomen soft, non-tender, nondistended. Bowel Sounds normoactive x4. MUSCULOSKELETAL: Extremities without clubbing, cyanosis, or edema. Left upper extremity, lower extremity flaccid NEUROLOGICAL: Awake and alert. Oriented to time, place, person. left Hemiplegia. Slurred speech. - Urinary Catheter Management Indwelling Urethral Catheter Cath placed during this visit: no Results - Labs CBC & Chem 7: 06/26/18 03:26 06/26/18 03:26 Laboratory Results - last 24 hr 06/24/18 06/25/18 06/25/18 17:05 10:28 10:28 WBC RBC Hgb Hct MCV MCH MCHC RDW Plt Count MPV Neut % (Auto) Lymph % (Auto) [place] % (Auto) Eos % (Auto) Baso % (Auto) Neut # (Auto) Lymph # (Auto) [place] # (Auto) Eos # (Auto) Baso # (Auto) WBC Differential Differential Comment ESR 30 H Sodium Potassium Chloride Carbon Dioxide Anion Gap BUN Creatinine Estimated GFR POC Glucose Random Glucose Hemoglobin A1c 8.7 H Calcium Vitamin B12 332 TSH 2.090 Free T4 0.99 06/25/18 06/25/18 06/25/18 13:26 17:48 21:38 WBC RBC Hgb Hct MCV MCH MCHC RDW Plt Count MPV Neut % (Auto) Lymph % (Auto) [place] % (Auto) Eos % (Auto) Baso % (Auto) Neut # (Auto) Lymph # (Auto) [place] # (Auto) Eos # (Auto) Baso # (Auto) WBC Differential Differential Comment ESR Sodium Potassium Chloride Carbon Dioxide Anion Gap BUN Creatinine Estimated GFR POC Glucose 161 H 123 H 139 H Random Glucose Hemoglobin A1c Calcium Vitamin B12 TSH Free T4 06/26/18 06/26/18 06/26/18 03:26 03:26 09:27 WBC 9.2 RBC 4.20 L Hgb 11.7 L Hct 35.6 L MCV 84.8 MCH 27.8 MCHC 32.8 RDW 16.7 Plt Count 271 MPV 9.1 Neut % (Auto) 70.9 H Lymph % (Auto) 19.5 [place] % (Auto) 6.6 Eos % (Auto) 2.5 Baso % (Auto) 0.5 Neut # (Auto) 6.5 Lymph # (Auto) 1.8 [place] # (Auto) 0.6 Eos # (Auto) 0.2 Baso # (Auto) 0.0 WBC Differential . Differential Comment Auto diff final ESR Sodium 142 Potassium 3.8 Chloride 106 Carbon Dioxide 23.9 Anion Gap 12 BUN 14 Creatinine 0.78 Estimated GFR Greater than 89 POC Glucose 131 H Random Glucose 133 H Hemoglobin A1c Calcium 8.4 L Vitamin B12 TSH Free T4 - Imaging Impressions Carotid Doppler Study 06/25/18 00:00 CONCLUSION: No evidence for hemodynamically significant stenosis. Neck MRA 06/25/18 00:00 CONCLUSION: 1. Negative MRA Carotids. Percent stenosis is calculated using the diameter of the stenotic region over the diameter of the normal distal internal carotid artery Head MRI 06/25/18 08:24 CONCLUSION: 1. Focal acute area of nonhemorrhagic infarction involving the deep mid right parietal region adjacent to the right lateral ventricle. 2. Mild chronic white matter changes are noted bilaterally. Head MRA 06/25/18 08:24 CONCLUSION: 1. Concentric moderate stenosis of the distal left M1 segment. 2. No evidence for large vessel occlusion. Assessment and Plan - Plan 62 y/o male with a history of HTN and DM presented to the ED with stroke like symptoms. Patient woke up with a facial droop and left sided weakness CVA, ischemic Head CT reviewed and shows multiple lacunar infarcts in the basal ganglia bilaterally -MRI of the head showed focal acute area of nonhemorrhagic infarction involving the deep mid right parietal region adjacent to the right lateral ventricle. Mild chronic white matter change are noted bilaterally -Head MRA showed concentric moderate stenosis of the distal left AL segment. No evidence for large vessel occlusion. -Neck MRA showed negative MRA carotid -Carotid Doppler study showed no evidence for hemodynamically significant stenosis -Consult neurology for evaluation, appreciate recommendation. Recommends n.p.o. for now. Coagulopathy studies. -ASA 325 daily, rectal -Echocardiogram showed normal LV function, EF 60-65% -EEG normal study and awake and asleep state -Lipid panel wnl, HgA1C 8.7 -OT/ST/PT ordered -Atorvastatin PO HS ordered -NPO failed swallow. Plan for PEG tube placement. Discussed extensively with patient, mother and Aunt -GI consulted for PEG placement. -Placement at the [facility] Dysphasia -Plan for PEG placement. -We will start tube feedings continuous when cleared by GI. DM, chronic -Accu checks with SSI -Hemoglobin A1c 8.7. -Once tube feeds is started, will start Levemir low-dose twice daily 5 units Hypertension, chronic -Allow for permissive hypertension -Reorder home medications in 24 hours DVT prophylaxis heparin subcu Code Status: Full code Discussed Condition With: Patient, mother, aunt, nursing, SHELBY [place] Discharge Planning: Plan to DC to SNF when clinically improved. [facility] has accepted patient.
[2018-06-26] MEDS: Dextrose 5%/NaCl 0.45% Inj 1,000 ML IV.CONT SCH (10:59)
--- NOTE | 2018-06-26 13:10 | P.CONGI ---
History of Present Illness Consult date: 06/26/18 Consult reason: PEG placement Chief complaint: Unsteady gait, facial droop, weakness History of Present Illness: This is a 62 yo who presented to the ER two days ago with stroke like symptoms , unknown last seen normal and therefore was not a candidate for TPA. Pt reported facial droop and left sided weakness, he has been found to have right parietal region deep lacunar type moderate sized DVA. Our service has been consulted to evaluate for possible PEG tube placement. Pt has been evaluated by speech therapy who noted him to have severe oropharyngeal dysphagia with high risk of aspiration event as well as moderate to severe cognitive impairment. Initially IR was consulted for G tube placement, however they wanted ASA to be discontinued for five days and this was thought to be too high risk given the pts recent CVA. Pt is on 300 mg rectal ASA as well as subq Heparin, both received this morning. Discussed with pts mother on the phone who is agreeable to PEG. Discussed with Hepas provider who would like to discharge pt to SNF to begin rehab this weekend. <Clarisa Dietz - Last Filed: 06/26/18 13:04> [facility] - History History Provided By: Patient - Medical History Medical History: Medical History (Last Reviewed 06/26/18 @ 11:17 by Jessica Heredia) Diabetes mellitus HTN (hypertension) - Surgical History Surgical History: Surgical History (Last Reviewed 06/26/18 @ 11:17 by Jessica Heredia) No significant past surgical history - Family History Family History: Family History (Last Reviewed 06/25/18 @ 13:50 by Jo Tay, PT) Mother CVA (cerebral vascular accident) HTN (hypertension) - Tobacco History Second Hand Smoke Exposure: No Tobacco Use In Past 30 Days: Yes Smoking Status: Current every day smoker Tobacco Type: Cigarettes - Alcohol History How Often Do You Have a Drink Containing Alcohol: Never - Substance Use History Substance History: No History of Abuse - Travel History Recent Travel in the [place] Within the Last 8 Weeks: No Recent Travel Out of the Country Within the Last 8 Weeks: No - Immunization History Tetanus Immunization: Unable to Assess Hx Influenza Vaccine This Season: No <Clarisa Dietz - Last Filed: 06/26/18 13:04> - Medical History Medical History: Medical History (Last Reviewed 06/26/18 @ 11:17 by Jessica Heredia) Diabetes mellitus HTN (hypertension) - Surgical History Surgical History: Surgical History (Last Reviewed 06/26/18 @ 11:17 by Jessica Heredia) No significant past surgical history - Family History Family History: Family History (Last Reviewed 06/25/18 @ 13:50 by Jo Tay PT) Mother CVA (cerebral vascular accident) HTN (hypertension) <Oralia Lawler - Last Filed: 06/26/18 17:05> Medications and Allergies Active Medications: Active Medications Al Hydroxide/Mg Hydroxide (Milk Of Magnesia Liq) 30 ml PO Q12H PRN PRN Reason: Mild Constipation Aspirin (Aspirin) 325 mg PO DAILY [facility] Last Admin: 06/26/18 09:39 Dose: Not Given Aspirin (Aspirin Supp) 300 mg RECTAL DAILY [facility] Last Admin: 06/26/18 08:53 Dose: 300 mg Atorvastatin Calcium (Lipitor) 10 mg PO HS [facility] Last Admin: 06/25/18 22:37 Dose: Not Given Bisacodyl (Dulcolax Supp) 10 mg RECTAL DAILY PRN PRN Reason: SEVERE CONSITIPATION Dextrose (D50w Vial) 50 ml IV.PUSH UNSCH PRN PRN Reason: PER HYPOGLYCEMIA PROTOCOL Glucagon (Glucagon Inj) 1 mg OTHER PRN PRN PRN Reason: for Hypoglycemia Protocol Heparin Sodium (Porcine) (Heparin Inj) 5,000 units SQ Q12HR [facility] Last Admin: 06/26/18 08:53 Dose: 5,000 units Dextrose/Sodium Chloride (D5w/1/2 Ns Inj) 1,000 mls @ 75 mls/hr IV.CONT .[id number] [facility] Last Admin: 06/26/18 10:59 Dose: 75 mls/hr Insulin Aspart (Novolog Insulin Correctional Sugar Inj) 0 unit SQ ACHS [facility]; Protocol Last Admin: 06/26/18 09:39 Dose: Not Given Lactulose (Lactulose Liq) 30 ml PO DAILY PRN PRN Reason: SEVERE CONSITIPATION Senna/Docusate Sodium (Claudia-Colace) 1 tab PO BID [facility] Last Admin: 06/26/18 09:39 Dose: Not Given Sennosides (Senokot) 17.2 mg PO Q12H PRN PRN Reason: Moderate Constipation Sodium Chloride (Ns Flush) 2 ml IV.FLUSH PRN PRN PRN Reason: FLUSH AFTER USING IV ACCESS Last Admin: 06/25/18 09:41 Dose: 2 ml <Clarisa Dietz - Last Filed: 06/26/18 13:04> Active Medications: Active Medications Al Hydroxide/Mg Hydroxide (Milk Of Magnesia Liq) 30 ml PO Q12H PRN PRN Reason: Mild Constipation Aspirin (Aspirin) 325 mg PO DAILY [facility] Last Admin: 06/26/18 09:39 Dose: Not Given Aspirin (Aspirin Supp) 300 mg RECTAL DAILY [facility] Last Admin: 06/26/18 08:53 Dose: 300 mg Atorvastatin Calcium (Lipitor) 10 mg PO HS [facility] Last Admin: 06/25/18 22:37 Dose: Not Given Bisacodyl (Dulcolax Supp) 10 mg RECTAL DAILY PRN PRN Reason: SEVERE CONSITIPATION Dextrose (D50w Vial) 50 ml IV.PUSH UNSCH PRN PRN Reason: PER HYPOGLYCEMIA PROTOCOL Glucagon (Glucagon Inj) 1 mg OTHER PRN PRN PRN Reason: for Hypoglycemia Protocol Heparin Sodium (Porcine) (Heparin Inj) 5,000 units SQ Q12HR [facility] Last Admin: 06/26/18 08:53 Dose: 5,000 units Dextrose/Sodium Chloride (D5w/1/2 Ns Inj) 1,000 mls @ 75 mls/hr IV.CONT .[id number] [facility] Last Infusion: 06/26/18 16:02 Dose: 75 mls/hr Insulin Aspart (Novolog Insulin Correctional Sugar Inj) 0 unit SQ ACHS [facility]; Protocol Last Admin: 06/26/18 13:15 Dose: Not Given Lactulose (Lactulose Liq) 30 ml PO DAILY PRN PRN Reason: SEVERE CONSITIPATION Senna/Docusate Sodium (Claudia-Colace) 1 tab PO BID [facility] Last Admin: 06/26/18 09:39 Dose: Not Given Sennosides (Senokot) 17.2 mg PO Q12H PRN PRN Reason: Moderate Constipation Sodium Chloride (Ns Flush) 2 ml IV.FLUSH PRN PRN PRN Reason: FLUSH AFTER USING IV ACCESS Last Admin: 06/25/18 09:41 Dose: 2 ml <Oralia Lawler - Last Filed: 06/26/18 17:05> Allergies Allergy/AdvReac Type Severity Reaction Status Date / Time No Known Allergies AdvReac Unknown Uncoded 02/17/18 16:41 Exam Vital signs: Vital Signs 06/25/18 16:00 06/25/18 19:46 06/25/18 20:00 Temperature 97.8 F 97.8 F 97.8 F Pulse Rate 81 95 H 87 Respiratory Rate 18 16 16 Blood Pressure 149/77 H 166/85 H 166/85 H Pulse Oximetry 100 99 99 06/25/18 20:20 06/25/18 22:11 06/26/18 00:00 Temperature 98 F 98 F Pulse Rate 88 96 H Respiratory Rate 15 16 Blood Pressure 156/84 H 143/83 H Pulse Oximetry 97 100 100 06/26/18 00:02 06/26/18 02:11 06/26/18 04:00 Temperature 97.9 F 98.6 F Pulse Rate 95 H 84 86 Respiratory Rate 16 Blood Pressure 150/86 H 132/78 Pulse Oximetry 100 99 06/26/18 04:01 06/26/18 06:11 06/26/18 07:23 Temperature 97.7 F Pulse Rate 84 80 89 Respiratory Rate 15 18 Blood Pressure 130/72 122/69 Pulse Oximetry 98 06/26/18 08:00 06/26/18 09:00 Temperature Pulse Rate 89 89 Respiratory Rate Blood Pressure Pulse Oximetry 98 Intake & Output 06/25/18 06/26/18 06/26/18 18:59 06:59 18:59 Intake Total 1000 / 1000 200 / 200 Balance 1000 / 1000 200 / 200 Intake: IV 1000 / 1000 200 / 200 NS Inj 1,000 ML @ 70 mls/hr IV. 1000 / 1000 CONT .[id number] JADA Rx#:[id number] KCl 10 mEq Premix Inj 10 meq In 200 / 200 100 ml @ 100 mls/hr IV.SIG Q1H JADA Rx#:[id number] Other: Date of Last Bowel Movement 06/24/18 06/24/18 06/24/18 - Constitutional no acute distress - Routine HEENT Exam Head: Present: normocephalic - Routine Respiratory Exam Absent: accessory muscle use - Routine Cardiovascular Exam Present: RRR - Routine Abdominal Exam Present: soft, normoactive bowel sounds. Absent: tenderness, distended - Routine Skin Exam Present: dry, warm - Routine Neurological Exam Present: alert, facial asymmetry oriented x 2 <Clarisa Dietz - Last Filed: 06/26/18 13:04> Vital signs: Vital Signs 06/25/18 19:46 06/25/18 20:00 06/25/18 20:20 Temperature 97.8 F 97.8 F Pulse Rate 95 H 87 Respiratory Rate 16 16 Blood Pressure 166/85 H 166/85 H Pulse Oximetry 99 99 97 06/25/18 22:11 06/26/18 00:00 06/26/18 00:02 Temperature 98 F 98 F Pulse Rate 88 96 H 95 H Respiratory Rate 15 16 Blood Pressure 156/84 H 143/83 H Pulse Oximetry 100 100 06/26/18 02:11 06/26/18 04:00 06/26/18 04:01 Temperature 97.9 F 98.6 F Pulse Rate 84 86 84 Respiratory Rate 16 Blood Pressure 150/86 H 132/78 Pulse Oximetry 100 99 06/26/18 06:11 06/26/18 07:23 06/26/18 08:00 Temperature 97.7 F Pulse Rate 80 89 89 Respiratory Rate 15 18 Blood Pressure 130/72 122/69 Pulse Oximetry 98 98 06/26/18 09:00 06/26/18 15:27 Temperature 97.8 F Pulse Rate 89 80 Respiratory Rate 20 Blood Pressure 131/74 Pulse Oximetry 99 Intake & Output 06/25/18 06/26/18 06/26/18 18:59 06:59 18:59 Intake Total 1000 / 1000 200 / 200 Balance 1000 / 1000 200 / 200 Intake: IV 1000 / 1000 200 / 200 NS Inj 1,000 ML @ 70 mls/hr IV. 1000 / 1000 CONT .[id number] JADA Rx#:[id number] KCl 10 mEq Premix Inj 10 meq In 200 / 200 100 ml @ 100 mls/hr IV.SIG Q1H JADA Rx#:[id number] Other: Date of Last Bowel Movement 06/24/18 06/24/18 06/24/18 <Oralia Lawler - Last Filed: 06/26/18 17:05> Results - Labs CBC & Chem 7: 06/26/18 03:26 06/26/18 03:26 Labs: Laboratory Results - last 24 hr 06/24/18 06/25/18 06/25/18 17:05 13:26 17:48 WBC RBC Hgb Hct MCV MCH MCHC RDW Plt Count MPV Neut % (Auto) Lymph % (Auto) [place] % (Auto) Eos % (Auto) Baso % (Auto) Neut # (Auto) Lymph # (Auto) [place] # (Auto) Eos # (Auto) Baso # (Auto) WBC Differential Differential Comment Sodium Potassium Chloride Carbon Dioxide Anion Gap BUN Creatinine Estimated GFR POC Glucose 161 H 123 H Random Glucose Hemoglobin A1c 8.7 H Calcium 06/25/18 06/26/18 06/26/18 21:38 03:26 03:26 WBC 9.2 RBC 4.20 L Hgb 11.7 L Hct 35.6 L MCV 84.8 MCH 27.8 MCHC 32.8 RDW 16.7 Plt Count 271 MPV 9.1 Neut % (Auto) 70.9 H Lymph % (Auto) 19.5 [place] % (Auto) 6.6 Eos % (Auto) 2.5 Baso % (Auto) 0.5 Neut # (Auto) 6.5 Lymph # (Auto) 1.8 [place] # (Auto) 0.6 Eos # (Auto) 0.2 Baso # (Auto) 0.0 WBC Differential . Differential Comment Auto diff final Sodium 142 Potassium 3.8 Chloride 106 Carbon Dioxide 23.9 Anion Gap 12 BUN 14 Creatinine 0.78 Estimated GFR Greater than 89 POC Glucose 139 H Random Glucose 133 H Hemoglobin A1c Calcium 8.4 L 06/26/18 09:27 WBC RBC Hgb Hct MCV MCH MCHC RDW Plt Count MPV Neut % (Auto) Lymph % (Auto) [place] % (Auto) Eos % (Auto) Baso % (Auto) Neut # (Auto) Lymph # (Auto) [place] # (Auto) Eos # (Auto) Baso # (Auto) WBC Differential Differential Comment Sodium Potassium Chloride Carbon Dioxide Anion Gap BUN Creatinine Estimated GFR POC Glucose 131 H Random Glucose Hemoglobin A1c Calcium - Imaging Impressions Carotid Doppler Study 06/25/18 00:00 CONCLUSION: No evidence for hemodynamically significant stenosis. Neck MRA 06/25/18 00:00 CONCLUSION: 1. Negative MRA Carotids. Percent stenosis is calculated using the diameter of the stenotic region over the diameter of the normal distal internal carotid artery Head MRI 06/25/18 08:24 CONCLUSION: 1. Focal acute area of nonhemorrhagic infarction involving the deep mid right parietal region adjacent to the right lateral ventricle. 2. Mild chronic white matter changes are noted bilaterally. <Clarisa Dietz - Last Filed: 06/26/18 13:04> - Labs CBC & Chem 7: 06/26/18 03:26 06/26/18 03:26 Labs: Laboratory Results - last 24 hr 06/24/18 06/25/18 06/25/18 17:05 10:28 17:48 WBC RBC Hgb Hct MCV MCH MCHC RDW Plt Count MPV Neut % (Auto) Lymph % (Auto) [place] % (Auto) Eos % (Auto) Baso % (Auto) Neut # (Auto) Lymph # (Auto) [place] # (Auto) Eos # (Auto) Baso # (Auto) WBC Differential Differential Comment Sodium Potassium Chloride Carbon Dioxide Anion Gap BUN Creatinine Estimated GFR POC Glucose 123 H Random Glucose Hemoglobin A1c 8.7 H Calcium LENA Screen Neg RPR Nonreactive 06/25/18 06/26/18 06/26/18 21:38 03:26 03:26 WBC 9.2 RBC 4.20 L Hgb 11.7 L Hct 35.6 L MCV 84.8 MCH 27.8 MCHC 32.8 RDW 16.7 Plt Count 271 MPV 9.1 Neut % (Auto) 70.9 H Lymph % (Auto) 19.5 [place] % (Auto) 6.6 Eos % (Auto) 2.5 Baso % (Auto) 0.5 Neut # (Auto) 6.5 Lymph # (Auto) 1.8 [place] # (Auto) 0.6 Eos # (Auto) 0.2 Baso # (Auto) 0.0 WBC Differential . Differential Comment Auto diff final Sodium 142 Potassium 3.8 Chloride 106 Carbon Dioxide 23.9 Anion Gap 12 BUN 14 Creatinine 0.78 Estimated GFR Greater than 89 POC Glucose 139 H Random Glucose 133 H Hemoglobin A1c Calcium 8.4 L LENA Screen RPR 06/26/18 06/26/18 09:27 13:12 WBC RBC Hgb Hct MCV MCH MCHC RDW Plt Count MPV Neut % (Auto) Lymph % (Auto) [place] % (Auto) Eos % (Auto) Baso % (Auto) Neut # (Auto) Lymph # (Auto) [place] # (Auto) Eos # (Auto) Baso # (Auto) WBC Differential Differential Comment Sodium Potassium Chloride Carbon Dioxide Anion Gap BUN Creatinine Estimated GFR POC Glucose 131 H 146 H Random Glucose Hemoglobin A1c Calcium LENA Screen RPR <Oralia Lawler - Last Filed: 06/26/18 17:05> Assessment and Plan - Plan Assessment: - Dysphagia due to recent CVA Evaluated by speech therapy who noted him to have severe oropharyngeal dysphagia with high risk of aspiration event as well as moderate to severe cognitive impairment. Initially IR was consulted for G tube placement, however they wanted ASA to be discontinued for five days and this was thought to be too high risk given the pts recent CVA. Pt is on 300 mg rectal ASA as well as subq Heparin, both received this morning. Discussed with pts mother on the phone who is agreeable to PEG. Discussed with Hepas provider who would like to discharge pt to SNF to begin rehab this weekend. Plan: EGD with PEG placement today Obtain consent Keep NPO Nutrition consult for TF recommendations Further recommendations to follow Pt has been seen and examined by myself and Dr. Lawler and this note is written on his behalf <Clarisa Dietz - Last Filed: 06/26/18 13:04> - Plan Seen and examined with TELECOMMUNICATIONS SPECIALIST, EGD/PEG today. ASA/heparin on hold till procedure done. Ancef 1 gm security installation technician to GI. Thank you The exam, history, and the medical decision-making described in the above note were completed with the assistance of the mid-level provider. I reviewed and agree with the findings presented. I attest that I had a [id number] encounter with the patient on the same day, and personally performed and documented my assessment and findings in the medical record. <Oralia Lawler - Last Filed: 06/26/18 17:05>
--- NOTE | 2018-06-26 14:09 | P.DIET ---
Nutritional Evaluation Type of nutrition evaluation: initial Nutrition consult regarding: Tube Feeding Nutrition screening: [facility] (For TFing recs) Objective - Diagnosis Unsteady Gait, Facial Droop, Weakness - Objective % IBW: 99 (IBW= 136#) Body Weight Used for Calculations: Actual (61.2 kg) Energy Needs - Lower Range (kCal/kg): 25 Energy Needs - Upper Range (kCal/kg): 30 Lower Limit kCal/kg (kCals): 1,531 Upper Limit kCal/kg (kCals): 1,837 Lower Limit Protein Factor (Grams per Kg): 1.0 Upper Limit Protein Factor (Grams per Kg): 1.5 Lower Protein Needs (Protein): 61 Upper Protein Needs (Protein): 92 Fluid Factor (ml/kg): 30 Estimated Fluid Needs (ml): 1,837 Dietitian Reviewed in Medical Record: Curent medications, Intake & Output, Labs , Medical history Speech Therapy Recommendations: Yes (severe oropharyngeal dysphagia) Objective Comments: HgA1c 8.7 Assessment Assessment: Pt will have a PEG placed today 2' to dysphagia. To meet nutritional needs with TFing, recommend Glucerna 1.5 @ 50 mls/hr to provide 1800 kcals, 99 gms protein and 911 mls of free water. To meet fluid needs, pt will need an additional 225 mls water flush q 6 hours. Recommendations: Glucerna 1.5 @ 50 mls/hr goal Water flushes 225 mls q 6 hours Dietitian to Monitor: Lab values, Intake & Output, Tube feeding tolerance, Weight change, Medical course
[2018-06-26] MEDS ORDERED: Lidocaine PF 1% Inj 5 ML Syringe INFILTRATN ONE (15:05)
--- NOTE | 2018-06-26 15:21 | GIPROC ---
[facility] [address] [facility]. [facility], [address] EGD PROCEDURE REPORT EXAM DATE: 06/26/2018 PATIENT NAME: Cristhian Gomez MR #: [id number] BIRTHDATE: 1955 ATTENDING: Oralia Lawler MD ORDER #: [id number] RN REGISTRY: Portia Keating and Ariela Stanton RN STATUS: inpatient INDICATIONS: The patient is a 62 yr old male here for an EGD due to dysphagia and Sp/P CVA PROCEDURE PERFORMED: EGD w/ percutaneous gastrostomy tube placement MEDICATIONS: None and Per Anesthesia. TOPICAL ANESTHETIC: CONSENT: The patient understands the risks and benefits of the procedure and understands that these risks include, but are not limited to: sedation, allergic reaction, infection, perforation and/or bleeding. Alternative means of evaluation and treatment include, among others: physical exam, x-rays, and/or surgical intervention. The patient elects to proceed with this endoscopic procedure. medical equipment was checked for proper function. Hand hygiene and appropriate measures for infection prevention was taken. After the risks, benefits and alternatives of the procedure were thoroughly explained, Informed consent was verified, confirmed and timeout was successfully executed by the treatment team. The patient was anesthetized with topical anesthesia and the Pentax [id number] endoscope was introduced through the mouth and advanced to the second portion of the duodenum. Retroflexed views revealed no abnormalities The gastroscope was then slowly withdrawn and removed. ESOPHAGUS: The mucosa of the esophagus appeared normal. STOMACH: There was mild gastritis in the gastric antrum. 20 Fr G tube placed under direct vision into the body of the stomach with pull through technique. Position verified endoscopically. DUODENUM: The duodenal mucosa appeared normal. ADVERSE EVENTS: There were no complications. IMPRESSIONS: 1. The esophagus appeared normal 2. There was mild gastritis in the gastric antrum 3. 20 Fr G tube placed under direct vision into the body of the stomach with pull through technique. Position verified endoscopically 4. Normal duodenal mucosa 5. Retroflexed views revealed no abnormalities RECOMMENDATIONS: 1. Anti-reflux regimen 2. PEG recomendations: 1- NPO for 6 hours except for meds 2- Flush PEG tube every 6 hours with water and after each PEG feeding 3- May resume regular diet in the morning 4- May use Ensure or Boost etc. for PEG tube feeding PATIENT CONDITION: stable DISPOSITION: Inpatient REPEAT EXAM: Return as needed for EGD Oralia Lawler MD eSigned: Oralia Lawler MD 06/26/2018 3:21 PM cc: PATIENT NAME: Cristhian Gomez MR#: [id number]
[2018-06-26 15:34] LABS: Anti-Nuclear Antibody Screen Neg (Neg)
[2018-06-26 23:52] LABS: Homocysteine (Cardiovascular) 8.3 umol/L (<11.4)
[2018-06-27] MEDS: Dextrose 5%/NaCl 0.45% Inj 1,000 ML IV.CONT SCH ×2 (00:24→16:35)
[2018-06-27] MEDS: Aspirin 325 MG Tablet PO SCH (08:36)
[2018-06-27] MEDS: Heparin - SQ 10,000 UNITS/ML Vial SQ SCH ×2 (08:37→20:40)
[2018-06-27] MEDS: Senna/Docusate Sodium 8.6/50 MG Tablet PO SCH ×2 (08:37→20:40)
[2018-06-27] MEDS: Aspirin 300 MG Supp RECTAL SCH (08:38)
[2018-06-27] MEDS: Insulin NovoLOG Aspart Correctional Sugar Inj SQ SCH ×4 (08:39→20:41)
--- NOTE | 2018-06-27 11:24 | P.PNGI ---
Subjective Interval history: S/P uncomplicated PEG placement, tolerating TF well. Physical Exam Vital signs: Vital Signs 06/26/18 15:27 06/26/18 20:00 06/26/18 20:06 Temperature 97.8 F 97.9 F Pulse Rate 80 85 86 Respiratory Rate 20 18 Blood Pressure 131/74 159/79 H Pulse Oximetry 99 99 06/26/18 23:13 06/27/18 00:00 06/27/18 00:14 Temperature 98.9 F 98.2 F Pulse Rate 95 H 85 Respiratory Rate 18 Blood Pressure 165/82 H 152/82 H Pulse Oximetry 98 99 100 06/27/18 04:00 06/27/18 04:15 06/27/18 04:50 Temperature 98.9 F 97.5 F L Pulse Rate 82 85 98 H Respiratory Rate 17 18 Blood Pressure 145/70 H 188/99 H Pulse Oximetry 96 99 06/27/18 05:18 06/27/18 05:50 06/27/18 08:00 Temperature 98.0 F 97.8 F 98 F Pulse Rate 87 85 82 Respiratory Rate 18 18 18 Blood Pressure 160/78 H 155/72 H 171/82 H Pulse Oximetry 99 99 99 Intake & Output 06/26/18 06/27/18 06/27/18 18:59 06:59 18:59 Intake Total 100 / 100 1120 / 1120 Output Total 1000 / 1000 Balance 100 / 100 120 / 120 Weight 62.5 kg Intake: IV 100 / 100 1000 / 1000 NS Inj 100 ML @ 0 mls/hr .ROUTE 100 / 100 .STK-MED ONE Rx#:[id number] D5W/1/2 NS Inj 1,000 ML @ 75 1000 / 1000 mls/hr IV.CONT .[id number] [facility] Rx# :[id number] Oral 0 / 0 Water Bolus Amount 120 / 120 Output: Urine 500 / 500 Urine Amount (Catheter) 500 / 500 Indwelling Urethral Catheter 500 / 500 Other: Date of Last Bowel Movement 06/24/18 # Bowel Movements 0 Narrative: GENERAL: This is a well-nourished, well-developed patient, in no apparent distress. SKIN: Warm and dry HEENT: Normocephalic. Pupils equal round and reactive. Nose without bleeding. Airway patent. Left facial droop NECK: Trachea midline. No JVD. Supple. CARDIOVASCULAR: Regular rate and rhythm without murmurs, gallops, or rubs. RESPIRATORY: Diminished bases. No wheezes, rales, or rhonchi. GASTROINTESTINAL: Abdomen soft, non-tender, nondistended. Bowel Sounds normoactive x4. MUSCULOSKELETAL: Extremities without clubbing, cyanosis, or edema. Left upper extremity, lower extremity flaccid NEUROLOGICAL: Awake and alert. Oriented to time, place, person. left Hemiplegia. Slurred speech. - Routine Abdominal Exam Present: soft (Clean PEG site) - Urinary Catheter Management Indwelling Urethral Catheter Cath placed during this visit: yes, but has since been removed by the nurse Reason for continuing: Chronic Urinary Retention Insertion date: 06/26/18 Removal date: 06/27/18 Removal time: 05:56 Results - Labs CBC & Chem 7: 06/26/18 03:26 06/26/18 03:26 Laboratory Results - last 24 hr 06/25/18 06/25/18 06/26/18 10:28 10:28 13:12 POC Glucose 146 H Homocysteine Cardiovas 8.3 LENA Screen Neg RPR Nonreactive 06/26/18 06/26/18 06/27/18 18:34 20:38 00:12 POC Glucose 151 H 199 H 180 H Homocysteine Cardiovas LENA Screen RPR 06/27/18 06/27/18 04:53 07:46 POC Glucose 270 H 233 H Homocysteine Cardiovas LENA Screen RPR Assessment and Plan - Plan S/ P PEG placement for enteral nutrition, please resume TF as ordered. Resume previous medications and anticoagulant if needed. Will S/O for now, please notify us if needed again.
--- NOTE | 2018-06-27 11:50 | P.PN ---
Subjective Interval history: Patient seen and examined this morning, their vitals are stable and the patient is afebrile. Family at bed side. Patient states he feels okay, slept well. Tolerated tube feed. Breathing comfortably. Physical Exam Vital signs: Vital Signs 06/26/18 15:27 06/26/18 20:00 06/26/18 20:06 Temperature 97.8 F 97.9 F Pulse Rate 80 85 86 Respiratory Rate 20 18 Blood Pressure 131/74 159/79 H Pulse Oximetry 99 99 06/26/18 23:13 06/27/18 00:00 06/27/18 00:14 Temperature 98.9 F 98.2 F Pulse Rate 95 H 85 Respiratory Rate 18 Blood Pressure 165/82 H 152/82 H Pulse Oximetry 98 99 100 06/27/18 04:00 06/27/18 04:15 06/27/18 04:50 Temperature 98.9 F 97.5 F L Pulse Rate 82 85 98 H Respiratory Rate 17 18 Blood Pressure 145/70 H 188/99 H Pulse Oximetry 96 99 06/27/18 05:18 06/27/18 05:50 06/27/18 08:00 Temperature 98.0 F 97.8 F 98 F Pulse Rate 87 85 82 Respiratory Rate 18 18 18 Blood Pressure 160/78 H 155/72 H 171/82 H Pulse Oximetry 99 99 99 06/27/18 08:30 Temperature Pulse Rate 76 Respiratory Rate Blood Pressure Pulse Oximetry Intake & Output 06/26/18 06/27/18 06/27/18 18:59 06:59 18:59 Intake Total 100 / 100 1120 / 1120 Output Total 1000 / 1000 Balance 100 / 100 120 / 120 Weight 62.5 kg Intake: IV 100 / 100 1000 / 1000 NS Inj 100 ML @ 0 mls/hr .ROUTE 100 / 100 .STK-MED ONE Rx#:[id number] D5W/1/2 NS Inj 1,000 ML @ 75 1000 / 1000 mls/hr IV.CONT .[id number] [facility] Rx# :[id number] Oral 0 / 0 Water Bolus Amount 120 / 120 Output: Urine 500 / 500 Urine Amount (Catheter) 500 / 500 Indwelling Urethral Catheter 500 / 500 Other: Date of Last Bowel Movement 06/24/18 # Bowel Movements 0 Narrative: GENERAL: This is a well-nourished, well-developed patient, in no apparent distress. SKIN: Warm and dry HEENT: Normocephalic. Pupils equal round and reactive. Nose without bleeding. Airway patent. Left facial droop NECK: Trachea midline. No JVD. Supple. CARDIOVASCULAR: Regular rate and rhythm without murmurs, gallops, or rubs. RESPIRATORY: Diminished bases. No wheezes, rales, or rhonchi. GASTROINTESTINAL: Abdomen soft, non-tender, nondistended. Bowel Sounds normoactive x4. MUSCULOSKELETAL: Extremities without clubbing, cyanosis, or edema. Left upper extremity, lower extremity flaccid NEUROLOGICAL: Awake and alert. Oriented to time, place, person. left Hemiplegia. Slurred speech. - Urinary Catheter Management Indwelling Urethral Catheter Cath placed during this visit: yes, but has since been removed by the nurse Reason for continuing: Chronic Urinary Retention Insertion date: 06/26/18 Removal date: 06/27/18 Removal time: 05:56 Results - Labs CBC & Chem 7: 06/26/18 03:26 06/26/18 03:26 Laboratory Results - last 24 hr 06/25/18 06/25/18 06/26/18 10:28 10:28 13:12 POC Glucose 146 H Homocysteine Cardiovas 8.3 LENA Screen Neg RPR Nonreactive 06/26/18 06/26/18 06/27/18 18:34 20:38 00:12 POC Glucose 151 H 199 H 180 H Homocysteine Cardiovas LENA Screen RPR 06/27/18 06/27/18 04:53 07:46 POC Glucose 270 H 233 H Homocysteine Cardiovas LENA Screen RPR - Imaging ITS Impressions Chest X-Ray 06/24/18 16:51 CONCLUSION: Negative examination. Head CT 06/24/18 16:52 CONCLUSION: 1. Since the previous study there has been development of white matter disease as well as multiple lacunar infarcts in the basal ganglia bilaterally. 2. No definite acute findings. . Carotid Doppler Study 06/25/18 00:00 CONCLUSION: No evidence for hemodynamically significant stenosis. Neck MRA 06/25/18 00:00 CONCLUSION: 1. Negative MRA Carotids. Percent stenosis is calculated using the diameter of the stenotic region over the diameter of the normal distal internal carotid artery Head MRI 06/25/18 08:24 CONCLUSION: 1. Focal acute area of nonhemorrhagic infarction involving the deep mid right parietal region adjacent to the right lateral ventricle. 2. Mild chronic white matter changes are noted bilaterally. Head MRA 06/25/18 08:24 CONCLUSION: 1. Concentric moderate stenosis of the distal left M1 segment. 2. No evidence for large vessel occlusion. Assessment and Plan - Plan In summary this is a 8-year-old male with a medical history that is significant for hypertension and diabetes who presented with facial droop and left-sided weakness. Right parietal region deep lacunar type moderate size CVA Dysphasia present Head CT reviewed and shows multiple lacunar infarcts in the basal ganglia bilaterally -MRI of the head showed focal acute area of nonhemorrhagic infarction involving the deep mid right parietal region adjacent to the right lateral ventricle. Mild chronic white matter change are noted bilaterally -Head MRA showed concentric moderate stenosis of the distal left [place] segment. No evidence for large vessel occlusion. -Neck MRA showed negative MRA carotid -Carotid Doppler study showed no evidence for hemodynamically significant stenosis -Consult neurology: will need ASA 325 mg, f/u holter, could do NGT for a few days then re-evaluate swallowing - GI was consulted for dysphagia, s/p peg tube placement -ASA 325 daily, rectal -Echocardiogram showed normal LV function, EF 60-65% -EEG normal study and awake and asleep state -Lipid panel wnl, HgA1C 8.7 -OT/ST/PT ordered -Atorvastatin PO HS ordered -Placement at the [facility] DM, chronic -Accu checks with SSI, home meds metformin & glipizide on hold -Hemoglobin A1c 8.7. -Tube feeds started per dietary reccs, will start Levemir low-dose twice daily 5 units Hypertension, chronic - permissive HTN for > 24 hrs, will resume home BP meds Amlodipine 10 mg and lisinopril 20 mg DVT prophylaxis heparin subcu Discharge Planning: Patient accepted at [facility]
--- NOTE | 2018-06-27 17:00 | HM ---
Date Performed: 06/25/2018 Time Performed: 14:30:00 HOOKUP DATE: 06/25/18 02:30:00 PM Smiley ANALYSIS START TIME: 06/25/2018 2:35:00 PM ANALYSIS END TIME: 06/26/2018 2:39:00 PM PATIENT AGE: 62 PATIENT HEIGHT PATIENT WEIGHT DRUG LIST PATIENT DIAGNOSIS TEST NARRATIVE: The patient's average heart rate was 87 BPM. No episodes of tachycardia wer e noted. No episodes of bradycardia were noted. No pauses exceeding 2.0 seconds were noted. 11 ventricular ectopics, which represented < 1% of the total beat count, were noted. The highest meño tricular ectopic frequency occurred from 03:00 PM to 04:00 PM Smiley. During this time 2 VE(s) occurred . Ventricular ectopics were observed as 11 isolated beat(s) only. No couplets or runs were noted. 716 supraventricular ectopics, which represented 1% of the total beat count, were noted. The high est supraventricular ectopic frequency occurred from 11:00 AM to 12:00 PM Fri. During this time 104 SVE(s) occurred. No episodes of ST depression (defined as -1.0 mm or more) were noted in channel 1. No episodes of ST depression (defined as -1.0 mm or more) were noted in channel 2. No episodes o f ST depression (defined as -1.0 mm or more) were noted in channel 3. TEST INTERPRETATION: No significant pauses or complex arrhythmia was present. No patient diary i s included. Overall, this is a benign appearing holter monitor with rare ventricular ectopy and occas ional premature supraventricular beats without complex forms. Signed by : Shaun Coleman
[2018-06-27] MEDS: Insulin Detemir Inj 1,000 UNIT/10 ML Vial SQ SCH (20:41)
[2018-06-27 23:53] LABS: Dil Russell Viper Venom Conf ( ND (NEGATIVE); Dil Russell Viper Venom Time M ND (CORRECTED); Lupus Anticoagulant PTT Screen 39 seconds (< OR = 40)
[2018-06-28] MEDS: Dextrose 5%/NaCl 0.45% Inj 1,000 ML IV.CONT SCH ×2 (05:50→17:09)
[2018-06-28 06:57] LABS: Anion Gap 8 meq/L (5-15); Blood Urea Nitrogen 8 mg/dL (7-18); Calcium 8.3 mg/dL (8.5-10.1); Chloride 104 meq/L (98-107); Glomerular Filtration Rate Greater Than 89 mL/min (>89); Glucose,Random 265 mg/dL (74-106); Potassium 3.4 meq/L (3.5-5.1); Sodium 140 meq/L (136-145)
[2018-06-28] MEDS: Lisinopril 20 MG Tablet PO SCH (08:20)
[2018-06-28] MEDS: Senna/Docusate Sodium 8.6/50 MG Tablet PO SCH ×2 (08:20→20:28)
[2018-06-28] MEDS: Aspirin 300 MG Supp RECTAL SCH (08:21)
[2018-06-28] MEDS: amLODIPine 10 MG Tablet PO SCH (08:21)
[2018-06-28] MEDS: Aspirin 325 MG Tablet PO SCH (08:21)
[2018-06-28] MEDS: Heparin - SQ 10,000 UNITS/ML Vial SQ SCH ×2 (08:21→20:28)
[2018-06-28] MEDS: Insulin NovoLOG Aspart Correctional Sugar Inj SQ SCH ×4 (08:21→22:59)
[2018-06-28] MEDS: Insulin Detemir Inj 1,000 UNIT/10 ML Vial SQ SCH ×2 (08:22→22:59)
--- NOTE | 2018-06-28 10:01 | P.PN ---
Subjective Interval history: Patient seen and examined this morning, their vitals are stable and the patient is afebrile. Patient states he feels like he was choking on his secretions. Currently feels well without any concerns or complaints. Denies chest pain or shortness of breath. Physical Exam Vital signs: Vital Signs 06/27/18 12:00 06/27/18 16:00 06/27/18 16:10 Temperature 98 F 98 F Pulse Rate 72 83 80 Respiratory Rate 18 18 Blood Pressure 124/77 146/72 H Pulse Oximetry 98 98 06/27/18 17:49 06/27/18 19:59 06/27/18 20:00 Temperature 97.3 F L Pulse Rate 86 82 Respiratory Rate 18 Blood Pressure 161/79 H Pulse Oximetry 98 100 06/28/18 00:00 06/28/18 04:00 06/28/18 08:00 Temperature 98 F 97.5 F L 98.6 F Pulse Rate 87 85 92 H Respiratory Rate 18 18 18 Blood Pressure 168/88 H 159/78 H 170/82 H Pulse Oximetry 99 97 97 Intake & Output 06/27/18 06/28/18 06/28/18 18:59 06:59 18:59 Intake Total 1550 / 1550 1000 / 1000 Output Total 700 / 700 1500 / 1500 Balance 850 / 850 -500 / -500 Weight 54.9 kg Intake: IV 1000 / 1000 1000 / 1000 D5W/1/2 NS Inj 1,000 ML @ 75 1000 / 1000 1000 / 1000 mls/hr IV.CONT .[id number] [facility] Rx# :[id number] Water Bolus Amount 550 / 550 Output: Urine 1500 / 1500 Urine Amount (Catheter) 700 / 700 Indwelling Urethral Catheter 700 / 700 Other: Date of Last Bowel Movement 06/24/18 Narrative: GENERAL: This is a well-nourished, well-developed patient, in no apparent distress. SKIN: Warm and dry HEENT: Normocephalic. Pupils equal round and reactive. Nose without bleeding. Airway patent. Left facial droop NECK: Trachea midline. No JVD. Supple. CARDIOVASCULAR: Regular rate and rhythm without murmurs, gallops, or rubs. RESPIRATORY: Diminished bases. No wheezes, rales, or rhonchi. GASTROINTESTINAL: Abdomen soft, non-tender, nondistended. Bowel Sounds normoactive x4. MUSCULOSKELETAL: Extremities without clubbing, cyanosis, or edema. Left upper extremity, lower extremity flaccid NEUROLOGICAL: Awake and alert. Oriented to time, place, person. left Hemiplegia. Slurred speech. - Urinary Catheter Management Indwelling Urethral Catheter Cath placed during this visit: yes, but has since been removed by the nurse Reason for continuing: Chronic Urinary Retention Insertion date: 06/27/18 Insertion time: 14:45 Removal date: 06/27/18 Removal time: 05:56 Results - Labs CBC & Chem 7: 06/26/18 03:26 06/28/18 05:47 Laboratory Results - last 24 hr 06/25/18 06/25/18 06/27/18 10:28 10:28 12:37 Thrombin Time ND Lupus Anticoagulant LA PTT Screen 39 dRVVT Screen 39 LA dRVVT Confirm ND dRVVT Mix ND Hexagonal Phase Confirm ND Antithrombin III Activ 105 Factor VIII Activity 89 Sodium Potassium Chloride Carbon Dioxide Anion Gap BUN Creatinine Estimated GFR POC Glucose 183 H Random Glucose Calcium Beta-2-GPI IgG Ab <9 Beta-2-GPI IgA Ab <9 Beta-2-GPI IgM Ab <9 06/27/18 06/27/18 06/28/18 17:30 20:33 05:47 Thrombin Time Lupus Anticoagulant LA PTT Screen dRVVT Screen LA dRVVT Confirm dRVVT Mix Hexagonal Phase Confirm Antithrombin III Activ Factor VIII Activity Sodium 140 Potassium 3.4 L Chloride 104 Carbon Dioxide 28.0 Anion Gap 8 BUN 8 Creatinine 0.76 Estimated GFR Greater than 89 POC Glucose 207 H 198 H Random Glucose 265 H Calcium 8.3 L Beta-2-GPI IgG Ab Beta-2-GPI IgA Ab Beta-2-GPI IgM Ab 06/28/18 07:42 Thrombin Time Lupus Anticoagulant LA PTT Screen dRVVT Screen LA dRVVT Confirm dRVVT Mix Hexagonal Phase Confirm Antithrombin III Activ Factor VIII Activity Sodium Potassium Chloride Carbon Dioxide Anion Gap BUN Creatinine Estimated GFR POC Glucose 280 H Random Glucose Calcium Beta-2-GPI IgG Ab Beta-2-GPI IgA Ab Beta-2-GPI IgM Ab Assessment and Plan - Plan In summary this is a 8-year-old male with a medical history that is significant for hypertension and diabetes who presented with facial droop and left-sided weakness. Right parietal region deep lacunar type moderate size CVA Dysphasia present Head CT reviewed and shows multiple lacunar infarcts in the basal ganglia bilaterally -MRI of the head showed focal acute area of nonhemorrhagic infarction involving the deep mid right parietal region adjacent to the right lateral ventricle. Mild chronic white matter change are noted bilaterally -Head MRA showed concentric moderate stenosis of the distal left [place] segment. No evidence for large vessel occlusion. -Neck MRA showed negative MRA carotid -Carotid Doppler study showed no evidence for hemodynamically significant stenosis -Consult neurology: will need ASA 325 mg, f/u holter, could do NGT for a few days then re-evaluate swallowing - GI was consulted for dysphagia, s/p peg tube placement -Echocardiogram showed normal LV function, EF 60-65% -EEG normal study and awake and asleep state -Lipid panel wnl, HgA1C 8.7 -OT/ST/PT ordered -Atorvastatin PO HS ordered -Placement at the [facility] DM, chronic -Accu checks with SSI, home meds metformin & glipizide on hold -Hemoglobin A1c 8.7. -Tube feeds started per dietary reccs, continue Levemir low-dose twice daily 5 units--> may titrate up as clinically indicated Hypertension, chronic - permissive HTN for > 24 hrs, will resume home BP meds Amlodipine 10 mg and lisinopril 20 mg HypoKalemia - K 3.4 - Replaced this am DVT prophylaxis heparin subcu Discharge Planning: Patient accepted at [facility]
[2018-06-29 06:01] LABS: Anion Gap 7 meq/L (5-15); Blood Urea Nitrogen 13 mg/dL (7-18); Calcium 8.5 mg/dL (8.5-10.1); Carbon Dioxide 27.6 meq/L (21.0-32.0); Chloride 107 meq/L (98-107); Glomerular Filtration Rate Greater Than 89 mL/min (>89); Glucose,Random 196 mg/dL (74-106); Potassium 3.9 meq/L (3.5-5.1); Sodium 142 meq/L (136-145)
[2018-06-29] MEDS: Dextrose 5%/NaCl 0.45% Inj 1,000 ML IV.CONT SCH ×2 (06:17→18:38)
--- NOTE | 2018-06-29 08:52 | P.PN ---
Subjective Interval history: Patient seen and examined this morning, their vitals are stable and the patient is afebrile. No overnight events. Patient more awake and alert today. He states he had a bad dream. He is eager to have a swallowing reevaluated. Physical Exam Vital signs: Vital Signs 06/28/18 12:00 06/28/18 13:17 06/28/18 16:00 Temperature 97.8 F 97.8 F Pulse Rate 92 H 87 92 H Respiratory Rate 18 Blood Pressure 134/75 147/73 H Pulse Oximetry 98 95 06/28/18 20:00 06/29/18 00:00 06/29/18 04:00 Temperature 97.7 F 97.7 F 98.6 F Pulse Rate 110 H 101 H 98 H Respiratory Rate 18 18 18 Blood Pressure 143/84 H 151/80 H 163/84 H Pulse Oximetry 97 95 97 06/29/18 07:27 Temperature 98.2 F Pulse Rate 94 H Respiratory Rate 12 Blood Pressure 156/81 H Pulse Oximetry 93 L Intake & Output 06/28/18 06/29/18 06/29/18 18:59 06:59 18:59 Intake Total 763 / 763 550 / 550 Output Total 1100 / 1100 Balance 763 / 763 -550 / -550 Weight 55.5 kg Intake: IV 400 / 400 D5W/1/2 NS Inj 1,000 ML @ 75 400 / 400 mls/hr IV.CONT .[id number] [facility] Rx# :[id number] Tube Feeding 363 / 363 550 / 550 Output: Urine 1100 / 1100 Other: # Incontinent Bowel Movements 1 Narrative: GENERAL: This is a well-nourished, well-developed patient, in no apparent distress. SKIN: Warm and dry HEENT: Normocephalic. Pupils equal round and reactive. Nose without bleeding. Airway patent. Left facial droop NECK: Trachea midline. No JVD. Supple. CARDIOVASCULAR: Regular rate and rhythm without murmurs, gallops, or rubs. RESPIRATORY: Diminished bases. No wheezes, rales, or rhonchi. GASTROINTESTINAL: Abdomen soft, non-tender, nondistended. Bowel Sounds normoactive x4. PEG tube site is clean and dry. MUSCULOSKELETAL: Extremities without clubbing, cyanosis, or edema. Left upper extremity, lower extremity flaccid NEUROLOGICAL: Awake and alert. Oriented to time, place, person. left Hemiplegia. Slurred speech. left facial droop - Urinary Catheter Management Indwelling Urethral Catheter Cath placed during this visit: yes, but has since been removed by the nurse Reason for continuing: Chronic Urinary Retention Insertion date: 06/27/18 Insertion time: 14:45 Removal date: 06/27/18 Removal time: 05:56 Results - Labs CBC & Chem 7: 06/26/18 03:26 06/29/18 04:49 Laboratory Results - last 24 hr 06/25/18 06/28/18 06/28/18 10:28 11:10 16:37 Sodium Potassium Chloride Carbon Dioxide Anion Gap BUN Creatinine Estimated GFR POC Glucose 232 H 149 H Random Glucose Calcium Methylmalonic Acid 0.07 06/28/18 06/29/18 06/29/18 22:45 04:49 07:11 Sodium 142 Potassium 3.9 Chloride 107 Carbon Dioxide 27.6 Anion Gap 7 BUN 13 Creatinine 0.71 Estimated GFR Greater than 89 POC Glucose 250 H 278 H Random Glucose 196 H Calcium 8.5 Methylmalonic Acid Assessment and Plan - Plan In summary this is a 8-year-old male with a medical history that is significant for hypertension and diabetes who presented with facial droop and left-sided weakness. Failed swallow has PEG tube, plan was re-evaluated swallowing in a few days. Patient is doing well, will have repeat swallow eval today. Right parietal region deep lacunar type moderate size CVA Dysphasia present Head CT reviewed and shows multiple lacunar infarcts in the basal ganglia bilaterally -MRI of the head showed focal acute area of nonhemorrhagic infarction involving the deep mid right parietal region adjacent to the right lateral ventricle. Mild chronic white matter change are noted bilaterally -Head MRA showed concentric moderate stenosis of the distal left [place] segment. No evidence for large vessel occlusion. -Neck MRA showed negative MRA carotid -Carotid Doppler study showed no evidence for hemodynamically significant stenosis -Consult neurology: will need ASA 325 mg, f/u holter, could do NGT for a few days then re-evaluate swallowing - GI was consulted for dysphagia, s/p peg tube placement -Echocardiogram showed normal LV function, EF 60-65% -EEG normal study and awake and asleep state -Lipid panel wnl, HgA1C 8.7 -OT/ST/PT ordered -Atorvastatin PO HS ordered -Placement at the [facility] DM, chronic -Accu checks with SSI, home meds metformin & glipizide on hold -Hemoglobin A1c 8.7. -Continue Levemir low-dose twice daily 5 units--> Titrate up to 10 units BID given elevated blood sugar Hypertension, chronic - Continue home BP meds Amlodipine 10 mg and lisinopril 20 mg HypoKalemia - Resolved DVT prophylaxis heparin subcu Discharge Planning: Patient accepted at [facility]
[2018-06-29] MEDS: Heparin - SQ 10,000 UNITS/ML Vial SQ SCH ×2 (09:00→22:33)
[2018-06-29] MEDS: amLODIPine 10 MG Tablet PO SCH (09:00)
[2018-06-29] MEDS: Lisinopril 20 MG Tablet PO SCH (09:00)
[2018-06-29] MEDS: Insulin Detemir Inj 1,000 UNIT/10 ML Vial SQ SCH ×2 (09:01→22:33)
[2018-06-29] MEDS: Aspirin 300 MG Supp RECTAL SCH (09:01)
[2018-06-29] MEDS: Insulin NovoLOG Aspart Correctional Sugar Inj SQ SCH ×4 (09:01→22:34)
[2018-06-29] MEDS: Senna/Docusate Sodium 8.6/50 MG Tablet PO SCH ×2 (09:02→22:34)
[2018-06-29 23:51] LABS: Activated Protein C Resistance 4.4 ratio (> OR = 2.1)
--- NOTE | 2018-06-30 07:53 | P.PNNEU ---
Subjective Subjective Comments: peg Active Medications: Active Medications Al Hydroxide/Mg Hydroxide (Milk Of Magnesia Liq) 30 ml PO Q12H PRN PRN Reason: Mild Constipation Amlodipine Besylate (Norvasc) 10 mg PO DAILY [facility] Last Admin: 06/29/18 09:00 Dose: 10 mg Aspirin (Aspirin Supp) 300 mg RECTAL DAILY [facility] Last Admin: 06/29/18 09:01 Dose: 300 mg Atorvastatin Calcium (Lipitor) 10 mg PO HS [facility] Last Admin: 06/29/18 22:33 Dose: 10 mg Bisacodyl (Dulcolax Supp) 10 mg RECTAL DAILY PRN PRN Reason: SEVERE CONSITIPATION Dextrose (D50w Vial) 50 ml IV.PUSH UNSCH PRN PRN Reason: PER HYPOGLYCEMIA PROTOCOL Glucagon (Glucagon Inj) 1 mg OTHER PRN PRN PRN Reason: for Hypoglycemia Protocol Heparin Sodium (Porcine) (Heparin Inj) 5,000 units SQ Q12HR [facility] Last Admin: 06/29/18 22:33 Dose: 5,000 units Insulin Aspart (Novolog Insulin Correctional Sugar Inj) 0 unit SQ [facility]; Protocol Last Admin: 06/29/18 22:34 Dose: 5 unit Insulin Detemir (Levemir Inj) 10 unit SQ BID [facility] Last Admin: 06/29/18 22:33 Dose: 10 unit Lactulose (Lactulose Liq) 30 ml PO DAILY PRN PRN Reason: SEVERE CONSITIPATION Lisinopril (Prinivil) 20 mg PO DAILY [facility] Last Admin: 06/29/18 09:00 Dose: 20 mg Senna/Docusate Sodium (Claudia-Colace) 1 tab PO BID [facility] Last Admin: 06/29/18 22:34 Dose: Not Given Sennosides (Senokot) 17.2 mg PO Q12H PRN PRN Reason: Moderate Constipation Sodium Chloride (Ns Flush) 2 ml IV.FLUSH PRN PRN PRN Reason: FLUSH AFTER USING IV ACCESS Last Admin: 06/25/18 09:41 Dose: 2 ml Allergies/Adverse Reactions: Allergies Allergy/AdvReac Type Severity Reaction Status Date / Time No Known Allergies AdvReac Unknown Uncoded 02/17/18 16:41 Physical Exam Vital signs: Vital Signs 06/29/18 13:07 06/29/18 15:19 06/29/18 20:00 Temperature 97.5 F L 98.3 F 97.5 F L Pulse Rate 87 79 89 Respiratory Rate 16 16 18 Blood Pressure 131/82 165/79 H 164/79 H Pulse Oximetry 97 98 95 06/30/18 00:00 Temperature 97.4 F L Pulse Rate 86 Respiratory Rate 18 Blood Pressure 148/76 H Pulse Oximetry 95 Intake & Output 06/29/18 06/30/18 06/30/18 18:59 06:59 18:59 Intake Total 950 / 950 Output Total 550 / 550 Balance 400 / 400 Intake: IV 950 / 950 D5W/1/2 NS Inj 1,000 ML @ 75 0 / 0 mls/hr IV.CONT .[id number] [facility] Rx# :[id number] NS + KCl 20 mEq Inj 1,000 ML @ 950 / 950 42 mls/hr IV.CONT .[id number] [facility] Rx#:[id number] Output: Urine 550 / 550 Other: # Incontinent Voids 2 Narrative: left ue and lle 0/5 moves r well lingual sounds mod poor - Urinary Catheter Management Indwelling Urethral Catheter Cath placed during this visit: yes, but has since been removed by the nurse Reason for continuing: Chronic Urinary Retention Insertion date: 06/27/18 Insertion time: 14:45 Removal date: 06/27/18 Removal time: 05:56 Objective Laboratory Results - last 24 hr 06/25/18 06/29/18 06/29/18 10:28 10:51 16:34 APC Resistance 4.4 POC Glucose 276 H 220 H MTHFR Mutation Detect Prothrombin [id number] Mut 06/29/18 20:25 APC Resistance POC Glucose 214 H MTHFR Mutation Detect Prothrombin [id number] Mut Review/Management - Review/Management Plan: imp r parietal region deep lacunar type mod size cva mrax2 neg echo neg ldl 90 on asa and rx will be [address] hep will need rehab/nhp oob ok fu holter failed swallow eval may need peg could do ngt for a few days then see how he does swallowing first 06/30/18 should be able to swallow in about two weeks or so echo holter hypercoag labs neg on asa change to peg ready for dc likely lacunar cva
[2018-06-30] MEDS: Lisinopril 20 MG Tablet PO SCH (08:50)
[2018-06-30] MEDS: Senna/Docusate Sodium 8.6/50 MG Tablet PO SCH ×2 (08:51→21:51)
[2018-06-30] MEDS: amLODIPine 10 MG Tablet PO SCH (08:51)
[2018-06-30] MEDS: Heparin - SQ 10,000 UNITS/ML Vial SQ SCH ×2 (08:51→21:50)
[2018-06-30] MEDS: Insulin NovoLOG Aspart Correctional Sugar Inj SQ SCH ×4 (08:52→21:52)
[2018-06-30] MEDS: Insulin Detemir Inj 1,000 UNIT/10 ML Vial SQ SCH ×2 (08:53→21:52)
[2018-06-30 13:25] LABS: Factor V Leiden Mutation Negative (Negative); Protein C Antigen 119 % (70-150)
--- NOTE | 2018-06-30 15:19 | P.PNIM ---
Subjective Interval history: Mr. Gomez was afebrile with stable vital signs. Discussed with nursing staff; no concerns. Mr. Gomez reports that he is doing well at this time. He feels that he is making improvements in his recovery and hopes to be able to swallow. No chest pain, shortness of breath, or abnormal urination. Discussed with patient's mother after appointment Physical Exam Vital signs: Vital Signs 06/29/18 20:00 06/30/18 00:00 06/30/18 04:00 Temperature 97.5 F L 97.4 F L 98.1 F Pulse Rate 89 86 95 H Respiratory Rate 18 18 18 Blood Pressure 164/79 H 148/76 H 131/74 Pulse Oximetry 95 95 97 06/30/18 08:00 06/30/18 12:00 Temperature 97.6 F 97.7 F Pulse Rate 91 H Respiratory Rate 14 16 Blood Pressure 163/85 H 125/68 Pulse Oximetry 95 96 Intake & Output 06/29/18 06/30/18 06/30/18 18:59 06:59 18:59 Intake Total 950 / 950 Output Total 550 / 550 600 / 600 Balance 400 / 400 -600 / -600 Weight 55.5 kg Intake: IV 950 / 950 D5W/1/2 NS Inj 1,000 ML @ 75 0 / 0 mls/hr IV.CONT .[id number] JADA Rx# :[id number] NS + KCl 20 mEq Inj 1,000 ML @ 950 / 950 42 mls/hr IV.CONT .[id number] [facility] Rx#:[id number] Output: Urine 550 / 550 600 / 600 Other: # Incontinent Voids 2 Date of Last Bowel Movement 06/29/18 Narrative: GENERAL: no acute distress. SKIN: Warm and dry HEENT: EOM I. Moist mucus membranes. left facial droop NECK: No appreciated JVD or lymphadenopathy CARDIOVASCULAR: Regular rate and rhythm without murmurs; normal perfusion RESPIRATORY: CTAB; normal rate GASTROINTESTINAL: Abdomen soft, non-tender, nondistended. Bowel sounds normal. PEG tube site is clean and dry. MUSCULOSKELETAL: Extremities without edema. Left upper extremity, lower extremity flaccid NEUROLOGICAL: Awake and alert. Oriented to time, place, person. l Slurred speech. left facial droop. left Hemiplegia. - Urinary Catheter Management Indwelling Urethral Catheter Cath placed during this visit: yes, but has since been removed by the nurse Reason for continuing: Acute urinary retention Insertion date: 06/27/18 Insertion time: 14:45 Removal date: 06/27/18 Removal time: 05:56 Results - Labs CBC & Chem 7: 06/26/18 03:26 06/29/18 04:49 Laboratory Results - last 24 hr 06/25/18 06/29/18 06/29/18 10:28 16:34 20:25 Protein C Antigen 119 APC Resistance 4.4 Protein S Activity 90 Factor V Leiden Mutat Negative Factor V Leiden Interp . Fact V Leiden Review By Diana brice m.d. POC Glucose 220 H 214 H Anti-Cardiolipin IgG Ab <9.4 Anti-Cardiolipin IgM Ab <9.4 MTHFR Mutation Detect Prothrombin [id number] Mut 06/30/18 06/30/18 08:07 12:14 Protein C Antigen APC Resistance Protein S Activity Factor V Leiden Mutat Factor V Leiden Interp Fact V Leiden Review By POC Glucose 271 H 252 H Anti-Cardiolipin IgG Ab Anti-Cardiolipin IgM Ab MTHFR Mutation Detect Prothrombin [id number] Mut Assessment and Plan - Assessment (1) History of lacunar cerebrovascular accident (CVA) Code(s): Z86.73 - Personal history of transient ischemic attack (TIA), and cerebral infarction without residual deficits Status: Acute (2) Dysphagia Code(s): R13.10 - Dysphagia, unspecified Status: Acute (3) HTN (hypertension) Code(s): I10 - Essential (primary) hypertension Status: Chronic (4) Diabetes Code(s): E11.9 - Type 2 diabetes mellitus without complications Status: Chronic - Plan In summary this is a 62-year-old male with a medical history that is significant for hypertension and diabetes who presented with facial droop and left-sided weakness. Patient has PEG tube; recently failed swallow eval 06/30: Patient doing well; patient and mother agreeable for rehab CVA Impression: Right parietal region deep lacunar type moderate size CVA Dysphasia present Imaging/Evaluation: Head CT reviewed and shows multiple lacunar infarcts in the basal ganglia bilaterally MRI of the head showed focal acute area of nonhemorrhagic infarction involving the deep mid right parietal region adjacent to the right lateral ventricle. Mild chronic white matter change are noted bilaterally Head MRA showed concentric moderate stenosis of the distal left MS segment. No evidence for large vessel occlusion. Neck MRA showed negative MRA carotid Carotid Doppler study showed no evidence for hemodynamically significant stenosis Echocardiogram showed normal LV function, EF 60-65% EEG normal study and awake and asleep state Lipid panel wnl, HgA1C 8.7 -Consult neurology: -will need ASA 325 mg -anticipate swallowing improvement -Dysphagia -GI consulted for PEG placement; doing well subsequently -Continue speech evaluation -Continue PT/OT -Continue statin -BP control; DVT PPX DM, chronic Impression: A1C 8.7. Glucose levels in mid 200's -Accu checks with SSI, -Continue levemir (increased to 10 U BID 06/29) -Will resume home metformin Hypertension, chronic - Continue home BP meds Amlodipine 10 mg and lisinopril 20 mg DVT prophylaxis heparin subcu Code Status: Full code Discussed Condition With: Patient's mother Discharge Planning: Patient accepted at [facility] (3) HTN (hypertension) Qualifiers: Hypertension type: essential hypertension Qualified Code(s): I10 - Essential (primary) hypertension
[2018-07-01 02:03] VITALS: RESP 18
[2018-07-01 07:43] VITALS: BP 159/83; PULSE 94; TEMP 96.8; O2SAT 97
[2018-07-01] MEDS: Lisinopril 20 MG Tablet PO SCH (08:42)
[2018-07-01] MEDS: Heparin - SQ 10,000 UNITS/ML Vial SQ SCH (08:42)
[2018-07-01] MEDS: amLODIPine 10 MG Tablet PO SCH (08:43)
[2018-07-01] MEDS: Senna/Docusate Sodium 8.6/50 MG Tablet PO SCH (08:43)
[2018-07-01] MEDS: Insulin NovoLOG Aspart Correctional Sugar Inj SQ SCH ×2 (08:43→13:40)
[2018-07-01] MEDS: Insulin Detemir Inj 1,000 UNIT/10 ML Vial SQ SCH (08:43)
--- NOTE | 2018-07-01 10:28 | P.DS ---
Date of admission: 06/24/18 18:57 Primary care physician: UNKNOWN Attending physician on discharge: Mason Villarreal Anticipated date of discharge: 07/01/18 Brief History from admission: 62 y/o male with a history of HTN and DM presented to the ED with stroke like symptoms. Patient states he went to bed last night not feeling right and woke up this morning with a facial droop and left sided weakness. Since coming to the ED patient states his symptoms have worsened and he can not move his left side. Denies any chest pain, sob, fever, chills, dizziness, headaches or blurred vision. DS: Diagnosis - Discharge Diagnosis (1) History of lacunar cerebrovascular accident (CVA) Status: Acute (2) Dysphagia Status: Acute (3) HTN (hypertension) Status: Chronic (4) Diabetes Status: Chronic DS: Medications - Discharge Medications Prescriptions: atorvastatin [Lipitor] 10 mg PO HS #30 tab insulin aspart U-100 [Novolog U-100 Insulin aspart] 0 unit SUB-Q ACHS #1 vial sennosides-docusate sodium [Senna Plus] 1 tab PO BID #60 tab DS: Summary Hospital Course: Mr. Gomez is a 62 y/o male with a history of HTN and DM who presented to the ED with facial droop and left sided weakness. Neurology consulted. MRI of the head showed focal acute area of nonhemorrhagic infarction involving the deep mid right parietal region adjacent to the right lateral ventricle. Head MRA showed concentric moderate stenosis of the distal left NH segment; no evidence for large vessel occlusion. Patient placed on ASA 325mg and his HTN and DM were treated during hospitalization. Patient developed dysphagia from stroke so was unable to swallow. GI consulted; PEG placed. Patient had some improvement with PT/OT during hospitalization. He was discharged 07/01 to rehabilitation facility to continue rehab and repeat speech evaluation. - Time Spent with Patient Total time spent providing and/or coordinating discharge services: Less than 30 minutes - Quality: VTE Deep Vein Thrombosis/Pulmonary Embolism Present on Admission: No Exam Vital signs: Vital Signs 06/30/18 12:00 06/30/18 16:00 06/30/18 20:00 Temperature 97.7 F 97.6 F 97.5 F L Pulse Rate 97 H 93 H 95 H Respiratory Rate 18 Blood Pressure 125/68 132/86 137/65 Pulse Oximetry 96 98 98 06/30/18 22:40 07/01/18 00:00 07/01/18 04:00 Temperature 97.8 F 97.7 F 98 F Pulse Rate 96 H 98 H 90 Respiratory Rate 17 18 18 Blood Pressure 160/78 H 146/73 H 142/77 H Pulse Oximetry 95 94 L 07/01/18 07:41 Temperature 96.8 F L Pulse Rate 94 H Respiratory Rate 18 Blood Pressure 159/83 H Pulse Oximetry 97 Intake & Output 06/30/18 07/01/18 07/01/18 18:59 06:59 18:59 Intake Total 1150 / 1150 1037 / 1037 Output Total 500 / 500 Balance 650 / 650 1037 / 1037 Weight 55.7 kg Intake: Oral 0 / 0 Tube Feeding 550 / 550 587 / 587 Tube Irrigant 450 / 450 Water Bolus Amount 600 / 600 Output: Urine 500 / 500 Other: Date of Last Bowel Movement 06/29/18 06/29/18 Narrative: GENERAL: no acute distress. SKIN: Warm and dry HEENT: EOM I. Moist mucus membranes. left facial droop NECK: No appreciated JVD or lymphadenopathy CARDIOVASCULAR: Regular rate and rhythm without murmurs; normal perfusion RESPIRATORY: CTAB; normal rate GASTROINTESTINAL: Abdomen soft, non-tender, nondistended. Bowel sounds normal. PEG tube site is clean and dry. MUSCULOSKELETAL: Extremities without edema. Left upper extremity, lower extremity flaccid NEUROLOGICAL: Awake and alert. Oriented to time, place, person. l Slurred speech. left facial droop. left Hemiplegia. Results Procedures completed during hospitalization: PEG Labs on day of discharge: Labs from last 24 hours 07/01/18 06/30/18 06/30/18 08:40 20:11 17:33 Protein C Antigen Protein S Activity Factor V Leiden Mutat Factor V Leiden Interp Fact V Leiden Review By POC Glucose 330 H 228 H 312 H Phosphatidylserine IgG Phosphatidylserine IgA Phosphatidylserine IgM Anti-Cardiolipin IgG Ab Anti-Cardiolipin IgM Ab 06/30/18 06/25/18 12:14 10:28 Protein C Antigen 119 Protein S Activity 90 Factor V Leiden Mutat Negative Factor V Leiden Interp . Fact V Leiden Review By Diana brice m.d. POC Glucose 252 H Phosphatidylserine IgG Less than 10.0 Phosphatidylserine IgA Less than 20.0 Phosphatidylserine IgM Less than 25.0 Anti-Cardiolipin IgG Ab <9.4 Anti-Cardiolipin IgM Ab <9.4 - Impressions ITS Impressions Chest X-Ray 06/24/18 16:51 CONCLUSION: Negative examination. Head CT 06/24/18 16:52 CONCLUSION: 1. Since the previous study there has been development of white matter disease as well as multiple lacunar infarcts in the basal ganglia bilaterally. 2. No definite acute findings. . Carotid Doppler Study 06/25/18 00:00 CONCLUSION: No evidence for hemodynamically significant stenosis. Neck MRA 06/25/18 00:00 CONCLUSION: 1. Negative MRA Carotids. Percent stenosis is calculated using the diameter of the stenotic region over the diameter of the normal distal internal carotid artery Head MRI 06/25/18 08:24 CONCLUSION: 1. Focal acute area of nonhemorrhagic infarction involving the deep mid right parietal region adjacent to the right lateral ventricle. 2. Mild chronic white matter changes are noted bilaterally. Head MRA 06/25/18 08:24 CONCLUSION: 1. Concentric moderate stenosis of the distal left M1 segment. 2. No evidence for large vessel occlusion. Discharge Plan - Discharge Disposition Patient Disposition: Discharge to SNF - Discharge Condition Condition: Stable - Discharge Order Discharge Orders: Discharge Order (Routine); Ordered 06/30/18 Ordered By: Mason Villarreal - Discharge Details Anticipated Discharge Date: 06/30/18 - Physicians Team Primary Care Provider: UNKNOWN, Attending Provider: Mason Villarreal Other Providers: Corona Harvey MD ; Stephany Knight MD ; Oralia Lawler MD ; Maurice Gayle [facility],[place]
[2018-07-01] MEDS ORDERED: Insulin Detemir Inj 1,000 UNIT/10 ML Vial SQ SCH (21:00)
== END 2018-07-01 13:00 ==
LOC: NEDA 16:05 → NEPC 16:05 → NEPFCDU 19:42 → N05 06-26 23:34
PROVIDERS: ADMIT Family Medicine; ATTEND Family Medicine
DX: R29.704 NIHSS score 4; R33.9 Retention of urine, unspecified; R29.810 Facial weakness; E78.00 Pure hypercholesterolemia, unspecified; I10 Essential (primary) hypertension; Z82.49 Family history of ischemic heart disease and other diseases of the circulatory system; Z79.84 Long term (current) use of oral hypoglycemic drugs; F20.9 Schizophrenia, unspecified; R13.12 Dysphagia, oropharyngeal phase; E11.65 Type 2 diabetes mellitus with hyperglycemia; E87.6 Hypokalemia; Z82.3 Family history of stroke; I63.9 Cerebral infarction, unspecified; R90.82 White matter disease, unspecified; F17.210 Nicotine dependence, cigarettes, uncomplicated; G81.04 Flaccid hemiplegia affecting left nondominant side; R47.02 Dysphasia

== ENCOUNTER 2018-07-02 22:39 | Inpatient (IN) ==
[2018-07-02] MEDS ORDERED: Sod Chloride 0.9% Inj 1,000 ML IV.CONT SCH (23:45)
[2018-07-02] MEDS ORDERED: Pantoprazole Inj 80 MG in Sodium Chlor 0.9% Inj 35 ML IV.SIG ONE (23:54)
--- NOTE | 2018-07-03 00:16 | XR ---
EXAM DATE: 07/03/2018 12:10 AM EDT AGE/SEX: 62 years / Male INDICATIONS: Free air. CLINICAL DATA: This is the patient's initial encounter. Patient reports that signs and symptoms have been present for 1 day and indicates a pain score of 0/10. MEDICAL/SURGICAL HISTORY: Diabetes mellitus type II. Hypertension. None. COMPARISON: [facility] [place] 1[place] S[place], [place]/24/2018. . FINDINGS: A single AP view of the chest demonstrates the lungs to be symmetrically aerated without evidence of mass, infiltrate or effusion. No evidence of pneumothorax. The cardiomediastinal contours are unrema rkable. Mild curvature of the thoracic spine convex towards the right. CONCLUSION: The lungs are clear. No evidence of free intraperitoneal gas. Electronically signed by: Og Ames MD 07/03/2018 12:14 AM EDT
[2018-07-03 00:24] LABS: Baso # (Auto) 0.1 th/mm3 (0.0-0.2); Baso % (Auto) 0.4 % (0.0-2.0); Eos # (Auto) 0.1 th/mm3 (0.0-0.4); Eos % (Auto) 0.3 % (0.0-4.0); Hematocrit 34.9 % (39.0-51.0); Hemoglobin 11.2 gm/dL (13.0-17.0); Lymph % (Auto) 10.5 % (9.0-44.0); Mean Corpuscular Hemoglobin 27.3 pg (27.0-34.0); Mean Corpuscular Volume 85.1 fL (80.0-100.0); Mean Platelet Volume 9.2 fL (7.0-11.0); Mono # (Auto) 1.2 th/mm3 (0.0-0.9); Mono % (Auto) 6.4 % (0.0-8.0); Neut # (Auto) 15.5 th/mm3 (1.8-7.7); Neut % (Auto) 82.4 % (16.0-70.0); Platelet Count 384 th/mm3 (150-450); Red Cell Distribution Width 17.3 % (11.6-17.2); White Blood Count 18.8 th/mm3 (4.0-11.0)
--- NOTE | 2018-07-03 00:24 | ED ---
HPI General Chief complaint: Nausea/Vomiting/Diarrhea Stated complaint: ABD pain Time Seen by Provider: 07/02/18 23:52 Source: patient and other (SNF notes) Mode of arrival: EMS Limitations: other (recent CVA) History of Present Illness HPI Narrative: 62-year-old male presents to the emergency department from retirement unit her patient had been admitted post acute CVA with dysphasia. Patient was discharged from the hospital 07/01/18. Patient today was noted to have gross coffee-ground emesis and coffee-ground stomach contents and his PEG tubing. Patient presents to the emergency department and sinus tachycardia with mild pallor and normotensive. Patient denies being on a blood thinning agent except daily aspirin. Patient noted during hospitalization to have anemia and had been on iron replacement. Mother at bedside reports no new facial droop and reports minor slurred speech has shown evidence of improvement. Related Data Home Medications Medication Instructions Recorded Confirmed amlodipine 10 mg FEEDING TUBE DAILY 06/27/18 07/03/18 cyclobenzaprine 10 mg FEEDING TUBE TID PRN 06/27/18 07/03/18 ferrous sulfate 325 mg FEEDING TUBE DAILY 06/27/18 07/03/18 lisinopril 20 mg FEEDING TUBE DAILY 06/27/18 07/03/18 metformin 1,000 mg FEEDING TUBE BID 06/27/18 07/03/18 atorvastatin [Lipitor] 10 mg FEEDING TUBE HS 07/03/18 07/03/18 magnesium citrate 296 ml FEEDING TUBE DAILY PRN 07/03/18 07/03/18 magnesium hydroxide [Milk of 30 ml FEEDING TUBE DAILY PRN 07/03/18 07/03/18 Magnesia] sennosides [Senna Lax] 2 tab FEEDING TUBE Q12H PRN 07/03/18 07/03/18 sennosides-docusate sodium [Senna 1 tab FEEDING TUBE BID 07/03/18 07/03/18 Plus] sodium phosphates [Fleet Enema] 197 ml NC DAILY 07/03/18 07/03/18 Previous Rx's Medication Instructions Recorded insulin aspart U-100 [Novolog 0 unit SUB-Q ACHS #1 vial 06/26/18 U-100 Insulin aspart] aspirin 324 mg G-TUBE DAILY tab 06/30/18 bisacodyl [Bisac-Evac] 10 mg NC DAILY PRN ea 06/30/18 insulin detemir U-100 [Levemir 10 unit SUB-Q BID ml 06/30/18 U-100 Insulin] Allergies Allergy/AdvReac Type Severity Reaction Status Date / Time No Known Allergies AdvReac Unknown Uncoded 02/17/18 16:41 Review of Systems ROS: all other systems reviewed are negative [facility] Medical History Medical History Stroke (Acute) Hyperlipemia (Acute) Anemia (Acute) HTN (hypertension) (Acute) Diabetes mellitus (Acute) Surgical History Surgical History No significant past surgical history (Acute) Family History Family History Mother CVA (cerebral vascular accident) HTN (hypertension) Social History Social History Substance History: No History of Abuse Second Hand Smoke Exposure: Yes Smoking Status: Former smoker Tobacco Type: Cigarettes How Often Do You Have a Drink Containing Alcohol: Never Recent Travel in [facility] within the Last 8 Weeks: No Recent Out of Country Travel within the Last 8 Weeks: No Immunization History Tetanus Immunization: <5 Years Hx Influenza Vaccine This Season: Yes Exam Narrative Exam Narrative: GENERAL: Well-developed well-nourished thin male in no acute distress no respiratory distress with dried dark blood to the side of his mouth. SKIN: Focused skin assessment warm/dry; mild pallor. HEAD: Atraumatic. Normocephalic. EYES: Pupils equal and round. No scleral icterus. No injection or drainage. Mild conjunctival pallor ENT: No nasal bleeding or discharge no septal hematoma. Mucous membranes pink and moist. NECK: Trachea midline. No JVD. CARDIOVASCULAR: Increased regular rate and rhythm. No murmur appreciated. RESPIRATORY: No accessory muscle use. Clear to auscultation. Breath sounds equal bilaterally. GASTROINTESTINAL: Abdomen soft, non-tender, nondistended. Hepatic and splenic margins not palpable. PEG tube in place with coffee-ground contents in tubing MUSCULOSKELETAL: No obvious deformities. No clubbing. No cyanosis. No edema. NEUROLOGICAL: Awake and alert. No obvious cranial nerve deficits facial droop. Motor grossly within normal limits except weakness of the left upper extremity and left lower extremity. Mild slurring of speech speech. PSYCHIATRIC: Appropriate mood and affect; insight and judgment normal. Course Initial Documented Vital Signs Temperature 98.2 F 07/02/18 23:37 Pulse Rate 65 07/02/18 23:37 Respiratory Rate 20 07/02/18 23:37 Blood Pressure 123/68 07/02/18 23:37 Pulse Oximetry 98 07/02/18 23:37 Last Documented Vital Signs Temperature 98.2 F 07/02/18 23:37 Pulse Rate 65 07/02/18 23:37 Respiratory Rate 20 07/02/18 23:37 Blood Pressure 123/68 07/02/18 23:37 Pulse Oximetry 98 07/02/18 23:37 Medical Decision Making MDM Narrative Medical decision making narrative: 62-year-old male recently discharged from the hospital after CVA with dysphagia and PEG tube placement presents from the custodial with coffee-ground emesis and coffee-ground contents in PEG tubing with tachycardia heart rate 120 and mild pallor. Patient takes one 325mg aspirin daily no other blood thinning agents. 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 Patient has received IV fluid bolus and tachycardia resolving. Blood pressure remaining stable. For trending of hemoglobins and GI consult. At 2:10 AM informed by patient's nurse that patient was found on the floor beside his stretcher awake but unable to get up off the floor due to his weakness of the left upper extremity lower extremity status post his recent CVA. On examination patient is back in exam bed no palpable soft tissue swelling of the scalp no notable swelling of the scalp no obvious bruising abrasion laceration or bony abnormality and nontender to direct palpation; cervical spine midline palpation no bony step-off no tenderness patient states has had had neck pain continues to have neck pain cervical collar applied CT of the brain noncontrast and CT cervical spine noncontrast ordered remainder of exam is unremarkable patient has good range of motion of the right upper extremity right lower extremity pelvic rock is stable lung sounds are clear to auscultation. Admitting doctor notified. Medical Screen Exam Complete: Yes Emergency Medical Condition: Yes Differential Diagnosis Differential Diagnosis: Upper GI bleed, erosive gastritis, peptic ulcer disease , anemia Medical Records Medical records reviewed: Yes I reviewed the patient's medical records. Lab Data Result diagrams: 07/03/18 00:00 07/03/18 01:00 Lab Results 07/03/18 07/03/18 07/03/18 Range/Units 00:00 00:00 00:00 WBC 18.8 H (4.0-11.0) th/mm3 RBC 4.10 L (4.50-5.90) mil/mm3 Hgb 11.2 L (13.0-17.0) gm/dL Hct 34.9 L (39.0-51.0) % MCV 85.1 (80.0-100.0) fL MCH 27.3 (27.0-34.0) pg MCHC 32.0 (32.0-36.0) % RDW 17.3 H (11.6-17.2) % Plt Count 384 D (150-450) th/mm3 MPV 9.2 (7.0-11.0) fL Prelim Diff (Auto) Slide review pending Neut % (Auto) 82.4 H (16.0-70.0) % Lymph % (Auto) 10.5 (9.0-44.0) % Bacon % (Auto) 6.4 (0.0-8.0) % Eos % (Auto) 0.3 (0.0-4.0) % Baso % (Auto) 0.4 (0.0-2.0) % Neut # (Auto) 15.5 H (1.8-7.7) th/mm3 Lymph # (Auto) 2.0 (1.0-4.8) th/mm3 Bacon # (Auto) 1.2 H (0.0-0.9) th/mm3 Eos # (Auto) 0.1 (0.0-0.4) th/mm3 Baso # (Auto) 0.1 (0.0-0.2) th/mm3 WBC Differential . Diff Scan Auto diff confirmed Differential Comment . Platelet Estimate Normal (Normal) Platelet Morphology Normal (Normal) PT 9.9 (9.8-11.6) sec INR 1.0 Ratio APTT 25.0 (24.3-30.1) sec Lactic Acid (0.4-2.0) mmol/L Blood Type O Positive Antibody Screen Negative 07/03/18 Range/Units 01:00 WBC (4.0-11.0) th/mm3 RBC (4.50-5.90) mil/mm3 Hgb (13.0-17.0) gm/dL Hct (39.0-51.0) % MCV (80.0-100.0) fL MCH (27.0-34.0) pg MCHC (32.0-36.0) % RDW (11.6-17.2) % Plt Count (150-450) th/mm3 MPV (7.0-11.0) fL Prelim Diff (Auto) Neut % (Auto) (16.0-70.0) % Lymph % (Auto) (9.0-44.0) % Bacon % (Auto) (0.0-8.0) % Eos % (Auto) (0.0-4.0) % Baso % (Auto) (0.0-2.0) % Neut # (Auto) (1.8-7.7) th/mm3 Lymph # (Auto) (1.0-4.8) th/mm3 Bacon # (Auto) (0.0-0.9) th/mm3 Eos # (Auto) (0.0-0.4) th/mm3 Baso # (Auto) (0.0-0.2) th/mm3 WBC Differential Diff Scan Differential Comment Platelet Estimate (Normal) Platelet Morphology (Normal) PT (9.8-11.6) sec INR Ratio APTT (24.3-30.1) sec Lactic Acid 3.2 H (0.4-2.0) mmol/L Blood Type Antibody Screen Imaging Data Radiologist's impression: Chest X-Ray 07/03/18 00:01 CONCLUSION: The lungs are clear. No evidence of free intraperitoneal gas. Discharge Plan Discharge Disposition Patient Disposition: 30 Still Patient Discharge Condition Condition: Stable Discharge Details Diagnosis: Acute upper GI bleed Physicians Team ED Provider: Rebecca Callahan Primary Care Provider: UNKNOWN, Attending Provider: Lindsey Smith Status ED Status: Admitted Patient
[2018-07-03 00:28] LABS: Prothrombin Time 9.9 sec (9.8-11.6)
[2018-07-03] MEDS: Pantoprazole Inj 80 MG in Sodium Chlor 0.9% Inj 100 ML IV.CONT SCH ×2 (00:49→11:24)
[2018-07-03 00:59] LABS: Platelet Estimate Normal (Normal); Platelet Morphology Normal (Normal)
[2018-07-03] MEDS ORDERED: Sodium Chlor 0.9% Inj 500 ML IV.SIG SCH ×3 (01:00→03:00)
[2018-07-03] MEDS ORDERED: Dextrose 50% in Water 50 ML Vial IV.PUSH PRN (02:41)
--- NOTE | 2018-07-03 02:54 | P.HP ---
History of Present Illness Service: [facility] Primary Care Physician: UNKNOWN History of Present Illness: 62-year-old male with past medical history significant for previous CVA, anemia , diabetes mellitus, hypertension and hyperlipidemia presents to the emergency department for the evaluation of coffee-ground emesis and coffee-ground discharge from his PEG tube. The patient was recently hospitalized for an acute CVA and discharged from the hospital on 07/01/18. The patient was brought in from his SNF for further evaluation. Patient takes daily aspirin. He has residual right-sided weakness that is at baseline with mild slurred speech. He denies any chest pain or shortness of breath. No abdominal pain. Positive nausea. No diarrhea. No fevers/chills. Inpatient Certification: I certify that the inpatient services were ordered in accordance with Medicare regulations governing the order. This includes certification that hospital inpatient services are reasonable and necessary and in the case of services not specified as inpatient-only under 42 CFR 419.22(n), that they are appropriately provided as inpatient services in accordance to with the 2-midnight benchmark under 43 CFR 412.3(e) Review of Systems All other systems reviewed negative except as stated in HPI PMFSH - History History Provided By: Patient - Medical History Medical History: Medical History (Last Reviewed 07/03/18 @ 00:21 by Rebecca Callahan MD) Stroke (Acute) Hyperlipemia (Acute) Anemia (Acute) HTN (hypertension) (Acute) Diabetes mellitus (Acute) - Surgical History Surgical History: Surgical History (Last Reviewed 07/03/18 @ 00:21 by Rebecca Callahan MD) No significant past surgical history - Family History Family History: Family History (Last Reviewed 07/03/18 @ 00:21 by Rebecca Callahan MD) Mother CVA (cerebral vascular accident) HTN (hypertension) - Tobacco History Second Hand Smoke Exposure: Yes Smoking Status: Former smoker Tobacco Type: Cigarettes - Alcohol History How Often Do You Have a Drink Containing Alcohol: Never - Substance Use History Substance History: No History of Abuse - Travel History Recent Travel in the [place] Within the Last 8 Weeks: No Recent Travel Out of the Country Within the Last 8 Weeks: No - Immunization History Tetanus Immunization: <5 Years Hx Influenza Vaccine This Season: Yes Medications and Allergies Active Medications: Active Medications Dextrose (D50w Vial) 50 ml IV.PUSH UNSCH PRN PRN Reason: PER HYPOGLYCEMIA PROTOCOL Enalaprilat (Vasotec Inj) 2.5 mg IV.PUSH Q6H PRN PRN Reason: SBP>160, DBP>90 Glucagon (Glucagon Inj) 1 mg OTHER PRN PRN PRN Reason: for Hypoglycemia Protocol Sodium Chloride (Ns Inj) 1,000 mls @ 125 mls/hr IV.CONT .Q8H AJDA Stop: 07/03/18 07:44 Last Admin: 07/03/18 00:48 Dose: 125 mls/hr Pantoprazole Sodium 80 mg/ (Sodium Chloride) 100 mls @ 10 mls/hr IV.CONT CONT JADA Last Admin: 07/03/18 00:49 Dose: 10 mls/hr Sodium Chloride (Ns Inj) 500 mls @ 0 mls/hr IV.SIG BOLUS JADA Last Admin: 07/03/18 01:49 Dose: 500 mls/hr Sodium Chloride (Ns Inj) 500 mls @ 0 mls/hr IV.SIG BOLUS JADA Sodium Chloride (Ns Inj) 500 mls @ 0 mls/hr IV.SIG BOLUS JADA Insulin Aspart (Novolog Insulin Correctional Sugar Inj) 0 unit SQ ACHS AND 3AM JADA; Protocol Ondansetron HCl (Zofran Inj) 4 mg IV.PUSH Q6H PRN PRN Reason: NAUSEA OR VOMITING Sodium Chloride (Ns Flush) 2 ml IV.FLUSH PRN PRN PRN Reason: FLUSH AFTER USING IV ACCESS Sodium Chloride (Ns Flush) 2 ml IV.FLUSH BID JADA Sodium Chloride (Ns Flush) 2 ml IV.FLUSH PRN PRN PRN Reason: FLUSH AFTER USING IV ACCESS Allergies Allergy/AdvReac Type Severity Reaction Status Date / Time No Known Allergies AdvReac Unknown Uncoded 02/17/18 16:41 Home Medications Medication Instructions Recorded Confirmed Type amlodipine 10 mg FEEDING TUBE DAILY 06/27/18 07/03/18 History cyclobenzaprine 10 mg FEEDING TUBE TID PRN 06/27/18 07/03/18 History ferrous sulfate 325 mg FEEDING TUBE DAILY 06/27/18 07/03/18 History lisinopril 20 mg FEEDING TUBE DAILY 06/27/18 07/03/18 History metformin 1,000 mg FEEDING TUBE BID 06/27/18 07/03/18 History atorvastatin [Lipitor] 10 mg FEEDING TUBE HS 07/03/18 07/03/18 History magnesium citrate 296 ml FEEDING TUBE DAILY PRN 07/03/18 07/03/18 History magnesium hydroxide [Milk of 30 ml FEEDING TUBE DAILY PRN 07/03/18 07/03/18 History Magnesia] sennosides [Senna Lax] 2 tab FEEDING TUBE Q12H PRN 07/03/18 07/03/18 History sennosides-docusate sodium [Senna 1 tab FEEDING TUBE BID 07/03/18 07/03/18 History Plus] sodium phosphates [Fleet Enema] 197 ml GA DAILY 07/03/18 07/03/18 History Exam Vital signs: Vital Signs 07/02/18 23:37 Temperature 98.2 F Pulse Rate 65 Respiratory Rate 20 Blood Pressure 123/68 Pulse Oximetry 98 Intake & Output 07/02/18 07/02/18 07/03/18 06:59 18:59 06:59 Intake Total 35 / 35 Balance 35 / 35 Weight 70.307 kg Intake: IV 35 / 35 Protonix Inj 80 MG In NS Inj 35 35 / 35 ML @ 420 mls/hr IV.SIG BOLUS ONE Rx#:[id number] Narrative: Gen.: No acute distress Head: Normocephalic. Atraumatic. EENT: Pupils equal round and reactive to light. Nose without drainage. Airway intact. Throat without injection. Cardiovascular: Regular rate and rhythm. No murmurs, rubs or gallops. Respiratory: Lungs clear to auscultation bilaterally. No wheezes or rhonchi. Abdomen: Soft, nontender, nondistended. No peritoneal signs. Musculoskeletal: No gross deformities. No edema. Skin: No obvious rashes or erythema. Neuro: Mildly slurred speech. Residual left-sided weakness on the left upper and lower extremity that is baseline. Results - Labs CBC & Chem 7: 07/03/18 00:00 07/03/18 01:00 Labs: Laboratory Results - last 24 hr 07/03/18 07/03/18 07/03/18 00:00 00:00 00:00 WBC 18.8 H RBC 4.10 L Hgb 11.2 L Hct 34.9 L MCV 85.1 MCH 27.3 MCHC 32.0 RDW 17.3 H Plt Count 384 D MPV 9.2 Prelim Diff (Auto) Slide review pending Neut % (Auto) 82.4 H Lymph % (Auto) 10.5 [place] % (Auto) 6.4 Eos % (Auto) 0.3 Baso % (Auto) 0.4 Neut # (Auto) 15.5 H Lymph # (Auto) 2.0 [place] # (Auto) 1.2 H Eos # (Auto) 0.1 Baso # (Auto) 0.1 WBC Differential . Diff Scan Auto diff confirmed Differential Comment . Platelet Estimate Normal Platelet Morphology Normal PT 9.9 INR 1.0 APTT 25.0 Lactic Acid Blood Type O Positive Antibody Screen Negative 07/03/18 01:00 WBC RBC Hgb Hct MCV MCH MCHC RDW Plt Count MPV Prelim Diff (Auto) Neut % (Auto) Lymph % (Auto) [place] % (Auto) Eos % (Auto) Baso % (Auto) Neut # (Auto) Lymph # (Auto) [place] # (Auto) Eos # (Auto) Baso # (Auto) WBC Differential Diff Scan Differential Comment Platelet Estimate Platelet Morphology PT INR APTT Lactic Acid 3.2 H Blood Type Antibody Screen - Imaging Impressions Chest X-Ray 07/03/18 00:01 CONCLUSION: The lungs are clear. No evidence of free intraperitoneal gas. Caprini VTE Risk Assessment Caprini VTE Risk Assessment: Moderate/High Risk (score >= 2) Caprini Risk Assessment Model: Point Value = 1 Point Value = 2 Point Value = 3 Point Value = 5 Age 41-60 Minor surgery BMI > 25 kg/m2 Swollen legs Varicose veins or History of unexplained or recurrent spontaneous Oral contraceptives or hormone replacement Sepsis (< 1 month) Serious lung disease, including pneumonia (< 1 month) Abnormal pulmonary function Acute myocardial infarction Congestive heart failure (< 1 month) History of inflammatory bowel disease Medical patient at bed rest Age 61-74 Arthroscopic surgery Major open surgery (> 45 min) Laparoscopic surgery (> 45 min) Malignancy Confined to bed (> 72 hours) Immobilizing plaster cast Central venous access Age >= 75 History of VTE Family history of VTE Factor V Leiden Prothrombin [id number] Lupus anticoagulant Anticardiolipin antibodies Elevated serum homocysteine Heparin-induced thrombocytopenia Other congenital or acquired thrombophilia Stroke (< 1 month) Elective arthroplasty Hip, pelvis, or leg fracture Acute spinal cord injury (< 1 month) Prophylaxis Regimen: Total Risk Factor Score Risk Level Prophylaxis Regimen 0-1 Low Early ambulation 2 Moderate Order ONE of the following: *Sequential Compression Device (SCD) *Heparin 5000 units SQ BID 3-4 Higher Order ONE of the following medications: *Heparin 5000 units SQ TID *Enoxaparin/Lovenox 40 mg SQ daily (WT < 150 kg, CrCl > 30 mL/min) *Enoxaparin/Lovenox 30 mg SQ daily (WT < 150 kg, CrCl > 10-29 mL/min) *Enoxaparin/Lovenox 30 mg SQ BID (WT < 150 kg, CrCl > 30 mL/min) AND/OR *Sequential Compression Device (SCD) 5 or more Highest Order ONE of the following medications: *Heparin 5000 units SQ TID (Preferred with Epidurals) *Enoxaparin/Lovenox 40 mg SQ daily (WT < 150 kg, CrCl > 30 mL/min) *Enoxaparin/Lovenox 30 mg SQ daily (WT < 150 kg, CrCl > 10-29 mL/min) *Enoxaparin/Lovenox 30 mg SQ BID (WT < 150 kg, CrCl > 30 mL/min) AND *Sequential Compression Device (SCD) Assessment and Plan - Plan Assessment/plan: 1. Upper GI bleed Patient with coffee-ground emesis H&H stable Serial H&H Protonix drip Gastroenterology consulted, appreciate recommendations Transfuse as needed 2. Diabetes mellitus Holding long-acting insulin given patient n.p.o. Sliding-scale insulin Monitor blood glucose 3. History of CVA Anticipate discharge to half-way facility Physical therapy consulted 4. Hypertension/hyperlipidemia Holding home medications as patient n.p.o. Vasotec as needed FEN N.p.o. Electrolytes:. Monitor and replete as needed Holding pharmacologic anticoagulation for GI bleed NS at 100 cc/hour
--- NOTE | 2018-07-03 03:00 | CT ---
EXAM DATE: 07/03/2018 2:48 AM EDT AGE/SEX: 62 years / Male INDICATIONS: Trauma; head injury. CLINICAL DATA: This is the patient's initial encounter. Patient reports that signs and symptoms have been present for 1 day and indicates a pain score of 3/10. MEDICAL/SURGICAL HISTORY: Hypertension. Cerebrovascular disease. Diabetes. Anemia. . PEG tube RADIATION DOSE: 56.35 CTDI (mGy) COMPARISON: [facility] [place], CT HEAD W/O CONTRAST, 06/24/2018. . TECHNIQUE: CT of the head without contrast. Using automated exposure control and adjustment of the mA and/or kV according to patient size, radiation dose was kept as low as reasonably achievable to ob tain optimal diagnostic quality images. DICOM format image data is available electronically for revi ew and comparison. FINDINGS: Cerebrum: Hypodensities were seen in the right sheets radiata and left basal ganglia on CT 06/24/2018 . On today's examination, the hypodensity in the right sheets radiata is more prominent and measures 2.2 cm in greatest oblique dimension. The left striatal lacunar infarct is stable in appearance. Ther e is stable prominence of the frontal horn and body of the lateral ventricles. No new hypodensities s een. No evidence of acute blood products, mass effect, or extra-axial fluid. There is good culver-white matter differentiation. Posterior Fossa: The cerebellum and brainstem are intact. The 4th ventricle is midline. The cerebe llopontine angle is unremarkable. Extracranial: The visualized portion of the orbits is intact. Skull: The calvaria is intact. No evidence of skull fracture. CONCLUSION: 1. Increased hypodensity in the right sheets radiata when compared to 06/24/2018, characteristic of a n evolving nonhemorrhagic infarction. 2. Stable left striatum lacunar infarct. . Electronically signed by: Og Ames MD 07/03/2018 2:59 AM EDT
--- NOTE | 2018-07-03 03:05 | CT ---
EXAM DATE: 07/03/2018 2:55 AM EDT AGE/SEX: 62 years / Male INDICATIONS: Trauma; head injury. CLINICAL DATA: This is the patient's initial encounter. Patient reports that signs and symptoms have been present for 1 day and indicates a pain score of 3/10. MEDICAL/SURGICAL HISTORY: Hypertension. Cerebrovascular disease. Diabetes. Anemia. . PEG tu be. RADIATION DOSE: 22.88 CTDI (mGy) COMPARISON: No prior exams available for comparison. TECHNIQUE: Contiguous axial images were obtained using helical multirow detector technique. The vol umetric data was post-processed with multiplanar reconstruction in oblique axial, sagittal, and coron al planes. Using automated exposure control and adjustment of the mA and/or kV according to patient s ize, radiation dose was kept as low as reasonably achievable to obtain optimal diagnostic quality yulissa ges. DICOM format image data is available electronically for review and comparison. FINDINGS: There is normal alignment of the vertebral bodies of the cervical spine and preservation of vertebral body height. Discogenic degenerative changes are present at C3-4 with posterior osteophytes and at C 6-7 with bridging anterior paravertebral ossification and posterior osteophytes. The posterior elemen ts are in normal alignment. There is fusion of the C4-5 facet joint on the right side. The atlantoaxi al articulation is intact.. C2-3: No fracture seen. The neural foramina are patent. C3-4: No fracture seen. Moderate right-sided bony neural foraminal stenosis. C4-5: No fracture seen. The neural foramina are patent. C5-6: No fracture seen. The neural foramina are patent. C6-7: No fracture seen. The neural foramina are patent. C7-T1: No fracture seen. The neural foramina are patent. CONCLUSION: 1. Negative trauma CT cervical spine. Electronically signed by: Og Ames MD 07/03/2018 3:03 AM EDT
[2018-07-03] MEDS: Sod Chloride 0.9% Inj 1,000 ML IV.CONT SCH ×2 (04:26→13:04)
[2018-07-03] MEDS: Insulin NovoLOG Aspart Correctional Sugar Inj SQ SCH ×4 (05:11→18:14)
[2018-07-03 05:52] LABS: Alanine Aminotransferase 33 U/L (12-78); Albumin 3.1 g/dL (3.4-5.0); Alkaline Phosphatase 113 U/L (45-117); Anion Gap 16 meq/L (5-15); Aspartate Aminotransferase 31 U/L (15-37); Blood Urea Nitrogen 36 mg/dL (7-18); Calcium 8.3 mg/dL (8.5-10.1); Carbon Dioxide 24.7 meq/L (21.0-32.0); Chloride 97 meq/L (98-107); Creatine Kinase 96 U/L (39-308); Glomerular Filtration Rate 74 mL/min (>89); Glucose,Random 152 mg/dL (74-106); Lipase 89 U/L (73-393); Potassium 4.6 meq/L (3.5-5.1); Sodium 138 meq/L (136-145); Total Protein 7.1 g/dL (6.4-8.2)
[2018-07-03 06:13] LABS: Hematocrit 29.3 % (39.0-51.0); Hemoglobin 10.2 gm/dL (13.0-17.0)
[2018-07-03 12:23] LABS: Hematocrit 30.6 % (39.0-51.0); Hemoglobin 9.5 gm/dL (13.0-17.0)
--- NOTE | 2018-07-03 12:30 | P.PN ---
Subjective Interval history: follow up on UGI bleed: minimal coffee ground noted in peg tube, no abd. pain, no n/v. No fever. Was confused overnight, required restraints. No fever. Slightly tachycardic. NPO, on IVF, and PPI gtt. Pt. now awake, speech dysarthric at times, following commands, oriented x 2, cooperative. C/O hiccups. Physical Exam Vital signs: Vital Signs 07/02/18 23:37 07/03/18 05:21 07/03/18 05:29 Temperature 98.2 F 98.5 F Pulse Rate 65 105 H 106 H Respiratory Rate 20 20 Blood Pressure 123/68 151/82 H Pulse Oximetry 98 98 95 07/03/18 08:00 Temperature 98.6 F Pulse Rate 105 H Respiratory Rate 12 Blood Pressure 155/81 H Pulse Oximetry 98 Intake & Output 07/02/18 07/03/18 07/03/18 18:59 06:59 18:59 Intake Total 1535 / 1535 100 / 100 Balance 1535 / 1535 100 / 100 Weight 70.307 kg Intake: IV 1535 / 1535 100 / 100 Protonix Inj 80 MG In NS Inj 100 / 100 100 ML @ 10 mls/hr IV.CONT CONT JADA Rx#:[id number] NS Inj 1,000 ML @ 125 mls/hr IV 1000 / 1000 .CONT .Q8H JADA Rx#:[id number] Protonix Inj 80 MG In NS Inj 35 35 / 35 ML @ 420 mls/hr IV.SIG BOLUS ONE Rx#:[id number] NS Inj 500 ML @ Wide Open IV. 500 / 500 SIG BOLUS JADA Rx#:[id number] Other: Date of Last Bowel Movement 07/03/18 Narrative: GENERAL: Well-nourished, well-developed patient in no apparent distress. SKIN: Warm and dry. HEAD: Atraumatic. Normocephalic. Facial droop EYES: Pupils equal and round. No scleral icterus. No injection or drainage. ENT: No nasal bleeding or discharge. Mucous membranes pink and moist. NECK: Trachea midline. No JVD. CARDIOVASCULAR: Regular rate and rhythm. RESPIRATORY: No accessory muscle use. Clear to auscultation. Breath sounds equal bilaterally. GASTROINTESTINAL: Abdomen soft, non-tender, nondistended. Hepatic and splenic margins not palpable. PEG tube in place, coffee-ground noted on tubing. MUSCULOSKELETAL: Extremities without clubbing, cyanosis, or edema. No obvious deformities. NEUROLOGICAL: Awake, oriented 2. Speech slightly dysarthric. Cooperative. Left-sided hemiparesis. PSYCHIATRIC: Appropriate mood and affect Results - Labs CBC & Chem 7: 07/03/18 12:20 07/03/18 02:30 Laboratory Results - last 24 hr 07/03/18 07/03/18 07/03/18 00:00 00:00 00:00 WBC 18.8 H RBC 4.10 L Hgb 11.2 L Hct 34.9 L MCV 85.1 MCH 27.3 MCHC 32.0 RDW 17.3 H Plt Count 384 D MPV 9.2 Prelim Diff (Auto) Slide review pending Neut % (Auto) 82.4 H Lymph % (Auto) 10.5 [place] % (Auto) 6.4 Eos % (Auto) 0.3 Baso % (Auto) 0.4 Neut # (Auto) 15.5 H Lymph # (Auto) 2.0 [place] # (Auto) 1.2 H Eos # (Auto) 0.1 Baso # (Auto) 0.1 WBC Differential . Diff Scan Auto diff confirmed Differential Comment . Platelet Estimate Normal Platelet Morphology Normal PT 9.9 INR 1.0 APTT 25.0 Sodium Potassium Chloride Carbon Dioxide Anion Gap BUN Creatinine Estimated GFR POC Glucose Random Glucose Lactic Acid Calcium Prot Corrected Calcium Total Bilirubin AST ALT Alkaline Phosphatase Ammonia Total Creatine Kinase Troponin I Total Protein Albumin Lipase Blood Type O Positive Antibody Screen Negative 07/03/18 07/03/18 07/03/18 01:00 01:00 02:30 WBC RBC Hgb Hct MCV MCH MCHC RDW Plt Count MPV Prelim Diff (Auto) Neut % (Auto) Lymph % (Auto) [place] % (Auto) Eos % (Auto) Baso % (Auto) Neut # (Auto) Lymph # (Auto) [place] # (Auto) Eos # (Auto) Baso # (Auto) WBC Differential Diff Scan Differential Comment Platelet Estimate Platelet Morphology PT INR APTT Sodium Cancelled Potassium Cancelled Chloride Cancelled Carbon Dioxide Cancelled Anion Gap Cancelled BUN Cancelled Creatinine Cancelled Estimated GFR Cancelled POC Glucose Random Glucose Cancelled Lactic Acid 3.2 H Calcium Cancelled Prot Corrected Calcium Cancelled Total Bilirubin Cancelled AST Cancelled ALT Cancelled Alkaline Phosphatase Cancelled Ammonia 39 H Total Creatine Kinase Cancelled Troponin I Cancelled Total Protein Cancelled Albumin Cancelled Lipase Cancelled Blood Type Antibody Screen 07/03/18 07/03/18 07/03/18 02:30 05:00 06:03 WBC RBC Hgb 10.2 L Hct 29.3 L MCV MCH MCHC RDW Plt Count MPV Prelim Diff (Auto) Neut % (Auto) Lymph % (Auto) [place] % (Auto) Eos % (Auto) Baso % (Auto) Neut # (Auto) Lymph # (Auto) [place] # (Auto) Eos # (Auto) Baso # (Auto) WBC Differential Diff Scan Differential Comment Platelet Estimate Platelet Morphology PT INR APTT Sodium 138 Potassium 4.6 Chloride 97 L Carbon Dioxide 24.7 Anion Gap 16 H BUN 36 H Creatinine 1.21 Estimated GFR 74 L POC Glucose 160 H Random Glucose 152 H Lactic Acid Calcium 8.3 L Prot Corrected Calcium Total Bilirubin 0.4 AST 31 ALT 33 Alkaline Phosphatase 113 Ammonia Total Creatine Kinase 96 Troponin I Less than 0.02 L Total Protein 7.1 Albumin 3.1 L Lipase 89 Blood Type Antibody Screen 07/03/18 08:56 WBC RBC Hgb Hct MCV MCH MCHC RDW Plt Count MPV Prelim Diff (Auto) Neut % (Auto) Lymph % (Auto) [place] % (Auto) Eos % (Auto) Baso % (Auto) Neut # (Auto) Lymph # (Auto) [place] # (Auto) Eos # (Auto) Baso # (Auto) WBC Differential Diff Scan Differential Comment Platelet Estimate Platelet Morphology PT INR APTT Sodium Potassium Chloride Carbon Dioxide Anion Gap BUN Creatinine Estimated GFR POC Glucose 128 H Random Glucose Lactic Acid Calcium Prot Corrected Calcium Total Bilirubin AST ALT Alkaline Phosphatase Ammonia Total Creatine Kinase Troponin I Total Protein Albumin Lipase Blood Type Antibody Screen - Imaging Impressions Chest X-Ray 07/03/18 00:01 CONCLUSION: The lungs are clear. No evidence of free intraperitoneal gas. Cervical Spine CT 07/03/18 02:07 CONCLUSION: 1. Negative trauma CT cervical spine. Head CT 07/03/18 02:07 CONCLUSION: 1. Increased hypodensity in the right sheets radiata when compared to 06/24/2018 , characteristic of an evolving nonhemorrhagic infarction. 2. Stable left striatum lacunar infarct. . Assessment and Plan - Assessment (1) Acute upper GI bleed Code(s): K92.2 - Gastrointestinal hemorrhage, unspecified Status: Acute (2) History of lacunar cerebrovascular accident (CVA) Code(s): Z86.73 - Personal history of transient ischemic attack (TIA), and cerebral infarction without residual deficits Status: Chronic (3) Dysphagia Code(s): R13.10 - Dysphagia, unspecified Status: Chronic (4) HTN (hypertension) Code(s): I10 - Essential (primary) hypertension Status: Chronic (5) Diabetes Code(s): E11.9 - Type 2 diabetes mellitus without complications Status: Chronic (6) Metabolic encephalopathy Code(s): G93.41 - Metabolic encephalopathy Status: Acute - Plan Assessment/plan 62-year-old male with past medical history significant for previous CVA, anemia , diabetes mellitus, hypertension and hyperlipidemia presents to the emergency department for the evaluation of coffee-ground emesis and coffee-ground discharge from his PEG tube. The patient was recently hospitalized for an acute CVA and discharged from the hospital on 07/01/18. The patient was brought in from his SNF for further evaluation. Patient takes daily aspirin. He has residual right-sided weakness that is at baseline with mild slurred speech. He denies any chest pain or shortness of breath. No abdominal pain. Positive nausea. No diarrhea. No fevers/chills. Upper GI bleed Patient with coffee-ground emesis H&H stable -Serial H&H -Protonix drip -Gastroenterology consulted, appreciate recommendations -Transfuse as needed -Keep NPO for now -Continue with IVF Metabolic encephalopathy possibly secondary to GI bleed, dehydration. Patient agitated overnight, confused. Continue with IV fluids -Follow UA Leukocytosis with lactic acidosis possibly secondary to GI bleed and dehydration Patient afebrile. Chest x-ray reviewed, no acute findings -follow CBC -UA pending -Continue with IV fluids Diabetes mellitus -Holding long-acting insulin given patient n.p.o. -Sliding-scale insulin -Monitor blood glucose History of CVA -Anticipate discharge to long-term facility -Physical therapy Hypertension/hyperlipidemia -Holding home medications as patient n.p.o. -Vasotec as needed SCDs for DVT prophylaxis Follow labs in the morning Discussed with patient's mother, patient, RN, case management. If stable, discharge back to subacute rehab in the morning Discussed with RN, patient, case management (3) Dysphagia Qualifiers: Dysphagia type: unspecified Qualified Code(s): R13.10 - Dysphagia, unspecified (4) HTN (hypertension) Qualifiers: Hypertension type: essential hypertension Qualified Code(s): I10 - Essential (primary) hypertension (5) Diabetes Qualifiers: Diabetes mellitus type: type 2 Diabetes mellitus terminal superintendent insulin use: unspecified terminal superintendent insulin use status Diabetes mellitus complication status : with neurologic complications Diabetes mellitus complication detail: with other neurological complication Qualified Code(s): E11.49 - Type 2 diabetes mellitus with other diabetic neurological complication
--- NOTE | 2018-07-03 13:53 | ECG ---
Date Performed: 07/03/2018 Time Performed: 01:41:31 PTAGE: 62 years EKG: SINUS TACHYCARDIA BORDERLINE LEFT AXIS DEVIATION NONSPECIFIC T-WAVE ABNORMALITY ABNORMAL RH YT ECG Since the PREVIOUS TRACING , no significant change noted PREVIOUS TRACIN07/03/2018 01.39 DOCTOR: Amy Zarate Interpretating Date/Time 07/03/2018 13:50:58
[2018-07-03 18:32] LABS: Bilirubin,Urine Negative (Negative); Clarity,Urine Clear (Clear); Color,Urine Straw (Yellw/Straw); Glucose,Urine (UA) Negative (Negative); Leukocyte Esterase,Urine Negative (Negative); Mucus,Urine Few /lpf (Occasional); Nitrite,Urine Negative (Negative); Specific Gravity,Urine 1.009 (1.002-1.035); Squamous Epithelial Cell,Urine <1 /hpf (0-5)
[2018-07-03 19:34] LABS: Hematocrit 30.5 % (39.0-51.0); Hemoglobin 9.8 gm/dL (13.0-17.0)
[2018-07-04 00:48] LABS: Hematocrit 31.4 % (39.0-51.0)
[2018-07-04] MEDS: Insulin NovoLOG Aspart Correctional Sugar Inj SQ SCH ×6 (01:11→20:48)
[2018-07-04] MEDS: Sod Chloride 0.9% Inj 1,000 ML IV.CONT SCH ×2 (01:14→08:10)
[2018-07-04] MEDS: Pantoprazole Inj 80 MG in Sodium Chlor 0.9% Inj 100 ML IV.CONT SCH (04:11)
[2018-07-04 10:18] LABS: Baso # (Auto) 0.1 th/mm3 (0.0-0.2); Baso % (Auto) 0.7 % (0.0-2.0); Eos # (Auto) 0.1 th/mm3 (0.0-0.4); Hematocrit 32.7 % (39.0-51.0); Hemoglobin 10.5 gm/dL (13.0-17.0); Lymph # (Auto) 1.6 th/mm3 (1.0-4.8); Lymph % (Auto) 11.1 % (9.0-44.0); Mean Corpuscular HGB Conc 32.3 % (32.0-36.0); Mean Corpuscular Volume 86.6 fL (80.0-100.0); Mean Platelet Volume 9.1 fL (7.0-11.0); Mono # (Auto) 1.2 th/mm3 (0.0-0.9); Mono % (Auto) 8.5 % (0.0-8.0); Neut # (Auto) 11.4 th/mm3 (1.8-7.7); Neut % (Auto) 78.7 % (16.0-70.0); Platelet Count 317 th/mm3 (150-450); Red Blood Count 3.77 mil/mm3 (4.50-5.90); Red Cell Distribution Width 16.7 % (11.6-17.2); White Blood Count 14.4 th/mm3 (4.0-11.0)
[2018-07-04 10:58] LABS: Alanine Aminotransferase 25 U/L (12-78); Albumin 2.9 g/dL (3.4-5.0); Alkaline Phosphatase 104 U/L (45-117); Anion Gap 14 meq/L (5-15); Aspartate Aminotransferase 23 U/L (15-37); Blood Urea Nitrogen 18 mg/dL (7-18); Calcium 8.6 mg/dL (8.5-10.1); Carbon Dioxide 23.5 meq/L (21.0-32.0); Chloride 104 meq/L (98-107); Glomerular Filtration Rate Greater Than 89 mL/min (>89); Glucose,Random 136 mg/dL (74-106); Sodium 141 meq/L (136-145); Total Protein 6.8 g/dL (6.4-8.2)
--- NOTE | 2018-07-04 11:15 | MB ---
cc: Gabo Mcgraw MD DATE: 07/04/2018 DATE: 07/04/2018 REASON FOR CONSULTATION: Coffee-ground vomiting. HISTORY OF PRESENT ILLNESS: This is a 62-year-old male patient with a past medical history significant for cerebrovascular accident, anemia, diabetes mellitus, hypertension, dyslipidemia, who is known to our service from previous recent admission. He had a tube placed by our service for poor nutritional intake and a swallowing problem along with slurred speech and significant muscle weakness. A tube was placed successfully without any complication. The patient presented again by a family member with coffee-ground material coming out of the PEG tube. The patient was seen in the emergency room. The PEG tube was placed on NG suction and a small amount of coffee-ground material noted. Otherwise, the patient appeared to be hemodynamically stable. No melena reported. No significant drop in his blood count. REVIEW OF SYSTEMS: Unobtainable at the current time. PAST MEDICAL HISTORY: CVA, anemia, diabetes, dyslipidemia, hypertension. FAMILY HISTORY: Mother with a CVA and hypertension. SOCIAL HISTORY: The patient is a former smoker. Lives at home at the current time with care from his mother. MEDICATION HISTORY: 1. Dextrose. 2. Enalapril. 3. Glucagon p.r.n. 4. Sodium chloride. 5. Pantoprazole. 6. Zofran. PHYSICAL EXAMINATION: GENERAL: The patient appears to be comfortably, not in distress or in pain. Hemodynamically stable. HEAD AND NECK: Normocephalic, atraumatic. Pupils equal and reactive to light. NECK: Supple neck. No lymphadenopathy. CHEST: Clear to auscultation bilaterally. No crackles or wheezes. CARDIOVASCULAR: Regular rate and rhythm. No murmur. ABDOMEN: Soft, nontender. No hepatosplenomegaly. No palpable masses. PEG tube site appeared to be intact and in place without evidence of bleeding or infection. The tube appeared to be migrated a little bit, reaching 25 cm, origin replaced was at 2 cm that was adjusted and a significant pressure applied to that area to prevent bleeding from inside. EXTREMITIES: Normal pulses. No edema. NEUROLOGIC: Showing evidence of CVA. LABORATORY DATA Hemoglobin 11.2, hematocrit 34.9, unchanged from his baseline. ASSESSMENT AND PLAN: This is a 62-year-old male patient with history of CVA requiring chronic use of antiplatelet agent, recently had PEG tube placement for nutritional support. The patient is tolerating the tube feeds without problems, but appeared to be draining large amount of coffee-ground vomiting. The PEG tube was inspected and appeared to be migrated in and that was adjusted by applying gentle pressure, leaving the PEG tube at 2 cm length. Subsequent suction from the stomach appeared to be negative for active bleeding. We will monitor H and H for now. Blood transfusion as needed a day. PEG tube care will be passed to the family member at home. Continue holding aspirin for a few days for the time being. We will follow up with you as needed. Thank you for the consult. MD MAYA De Guzman/varghese , 10:00 AM , 10:10 AM
--- NOTE | 2018-07-04 11:57 | P.PN ---
Subjective Interval history: follow up on UGI bleed: awake, oriented x 2. c/o heartburn. No abdominal pain, no n/v. No cp, no sob, no fever. Fever 100.1 last night. Tachycardic at times. No restraints, back to baseline. No agitation. PEG tube to low intermittent suction, green gastric contents are noted. No coffee-ground. Physical Exam Vital signs: Vital Signs 07/03/18 12:00 07/03/18 15:39 07/03/18 20:00 Temperature 98.1 F 98.2 F Pulse Rate 99 H 98 H 95 H Respiratory Rate 20 12 Blood Pressure 146/74 H 159/75 H Pulse Oximetry 95 95 07/03/18 20:01 07/03/18 23:55 07/04/18 04:53 Temperature 98.0 F 100.1 F H 99.5 F Pulse Rate 100 H 106 H 98 H Respiratory Rate 20 20 20 Blood Pressure 161/81 H 151/79 H 144/78 H Pulse Oximetry 98 97 98 07/04/18 08:00 07/04/18 08:15 07/04/18 09:11 Temperature 98.7 F Pulse Rate 95 H 96 H 104 H Respiratory Rate 16 Blood Pressure 161/82 H 148/78 H Pulse Oximetry 99 Intake & Output 07/03/18 07/04/18 07/04/18 18:59 06:59 18:59 Intake Total 1100 / 1100 1100 / 1100 686 / 686 Output Total 1000 / 1000 350 / 350 Balance 100 / 100 1100 / 1100 336 / 336 Intake: IV 1100 / 1100 1100 / 1100 686 / 686 Protonix Inj 80 MG In NS Inj 100 / 100 100 / 100 100 ML @ 10 mls/hr IV.CONT CONT JADA Rx#:[id number] NS Inj 1,000 ML @ 100 mls/hr IV 1000 / 1000 1000 / 1000 686 / 686 .CONT .Q10H JADA Rx#:[id number] Output: Urine 1000 / 1000 Gastric Drainage 350 / 350 Left Upper Quadrant Gastrostomy 350 / 350 Tube (PEG) Other: # Voids 2 Narrative: GENERAL: Well-nourished, well-developed patient in no apparent distress. SKIN: Warm and dry. HEAD: Atraumatic. Normocephalic. Facial droop EYES: Pupils equal and round. No scleral icterus. No injection or drainage. ENT: No nasal bleeding or discharge. Mucous membranes pink and moist. NECK: Trachea midline. No JVD. CARDIOVASCULAR: Regular rate and rhythm. RESPIRATORY: No accessory muscle use. Clear to auscultation. Breath sounds equal bilaterally. GASTROINTESTINAL: Abdomen soft, mild epigastric tenderness, nondistended. Hepatic and splenic margins not palpable. PEG tube to low intermittent suction , green gastric drainage. MUSCULOSKELETAL: Extremities without clubbing, cyanosis, or edema. No obvious deformities. NEUROLOGICAL: Awake, oriented 2. Speech slightly dysarthric. Cooperative. Left-sided hemiparesis. PSYCHIATRIC: Appropriate mood and affect - Urinary Catheter Management Condom Cath placed during this visit: no Results - Labs CBC & Chem 7: 07/04/18 07:58 07/04/18 07:58 Laboratory Results - last 24 hr 07/03/18 07/03/18 07/03/18 12:20 13:01 17:57 WBC RBC Hgb 9.5 L Hct 30.6 L MCV MCH MCHC RDW Plt Count MPV Neut % (Auto) Lymph % (Auto) Petroleum % (Auto) Eos % (Auto) Baso % (Auto) Neut # (Auto) Lymph # (Auto) Petroleum # (Auto) Eos # (Auto) Baso # (Auto) WBC Differential Differential Comment Sodium Potassium Chloride Carbon Dioxide Anion Gap BUN Creatinine Estimated GFR POC Glucose 131 H 135 H Random Glucose Calcium Total Bilirubin AST ALT Alkaline Phosphatase Total Protein Albumin Urine Color Urine Clarity Urine pH Ur Specific [place] Urine Protein Urine Glucose (UA) Urine Ketones Urine Occult Blood Urine Nitrate Urine Bilirubin Urine Urobilinogen Ur Leukocyte Esterase Urine WBC Ur Squamous Epith Cells Urine Mucus Micro UA Comment Ur Microscopic Review Urine Culture Comments 07/03/18 07/03/18 07/03/18 18:00 18:28 20:54 WBC RBC Hgb 9.8 L Hct 30.5 L MCV MCH MCHC RDW Plt Count MPV Neut % (Auto) Lymph % (Auto) Petroleum % (Auto) Eos % (Auto) Baso % (Auto) Neut # (Auto) Lymph # (Auto) Petroleum # (Auto) Eos # (Auto) Baso # (Auto) WBC Differential Differential Comment Sodium Potassium Chloride Carbon Dioxide Anion Gap BUN Creatinine Estimated GFR POC Glucose 131 H Random Glucose Calcium Total Bilirubin AST ALT Alkaline Phosphatase Total Protein Albumin Urine Color Straw Urine Clarity Clear Urine pH 7.0 Ur Specific [place] 1.009 Urine Protein 30 H Urine Glucose (UA) Negative Urine Ketones Trace H Urine Occult Blood Negative Urine Nitrate Negative Urine Bilirubin Negative Urine Urobilinogen Less than 2 Ur Leukocyte Esterase Negative Urine WBC 1 Ur Squamous Epith Cells <1 Urine Mucus Few H Micro UA Comment Culture not ind Ur Microscopic Review Not Reportable Urine Culture Comments Culture not ind 07/04/18 07/04/18 07/04/18 00:38 04:14 07:58 WBC 14.4 H RBC 3.77 L Hgb 10.0 L 10.5 L Hct 31.4 L 32.7 L MCV 86.6 MCH 28.0 MCHC 32.3 RDW 16.7 Plt Count 317 MPV 9.1 Neut % (Auto) 78.7 H Lymph % (Auto) 11.1 Petroleum % (Auto) 8.5 H Eos % (Auto) 1.0 Baso % (Auto) 0.7 Neut # (Auto) 11.4 H Lymph # (Auto) 1.6 Petroleum # (Auto) 1.2 H Eos # (Auto) 0.1 Baso # (Auto) 0.1 WBC Differential . Differential Comment Auto diff final Sodium Potassium Chloride Carbon Dioxide Anion Gap BUN Creatinine Estimated GFR POC Glucose 137 H Random Glucose Calcium Total Bilirubin AST ALT Alkaline Phosphatase Total Protein Albumin Urine Color Urine Clarity Urine pH Ur Specific [place] Urine Protein Urine Glucose (UA) Urine Ketones Urine Occult Blood Urine Nitrate Urine Bilirubin Urine Urobilinogen Ur Leukocyte Esterase Urine WBC Ur Squamous Epith Cells Urine Mucus Micro UA Comment Ur Microscopic Review Urine Culture Comments 07/04/18 07/04/18 07:58 08:10 WBC RBC Hgb Hct MCV MCH MCHC RDW Plt Count MPV Neut % (Auto) Lymph % (Auto) Petroleum % (Auto) Eos % (Auto) Baso % (Auto) Neut # (Auto) Lymph # (Auto) Petroleum # (Auto) Eos # (Auto) Baso # (Auto) WBC Differential Differential Comment Sodium 141 Potassium 4.0 Chloride 104 Carbon Dioxide 23.5 Anion Gap 14 BUN 18 Creatinine 0.74 Estimated GFR Greater than 89 POC Glucose 129 H Random Glucose 136 H Calcium 8.6 Total Bilirubin 0.5 AST 23 ALT 25 Alkaline Phosphatase 104 Total Protein 6.8 Albumin 2.9 L Urine Color Urine Clarity Urine pH Ur Specific [place] Urine Protein Urine Glucose (UA) Urine Ketones Urine Occult Blood Urine Nitrate Urine Bilirubin Urine Urobilinogen Ur Leukocyte Esterase Urine WBC Ur Squamous Epith Cells Urine Mucus Micro UA Comment Ur Microscopic Review Urine Culture Comments Assessment and Plan - Assessment (1) Acute upper GI bleed Code(s): K92.2 - Gastrointestinal hemorrhage, unspecified Status: Acute (2) History of lacunar cerebrovascular accident (CVA) Code(s): Z86.73 - Personal history of transient ischemic attack (TIA), and cerebral infarction without residual deficits Status: Chronic (3) Dysphagia Code(s): R13.10 - Dysphagia, unspecified Status: Chronic (4) HTN (hypertension) Code(s): I10 - Essential (primary) hypertension Status: Chronic (5) Diabetes Code(s): E11.9 - Type 2 diabetes mellitus without complications Status: Chronic (6) Metabolic encephalopathy Code(s): G93.41 - Metabolic encephalopathy Status: Acute - Plan Assessment/plan 62-year-old male with past medical history significant for previous CVA, anemia , diabetes mellitus, hypertension and hyperlipidemia presents to the emergency department for the evaluation of coffee-ground emesis and coffee-ground discharge from his PEG tube. The patient was recently hospitalized for an acute CVA and discharged from the hospital on 07/01/18. The patient was brought in from his SNF for further evaluation. Patient takes daily aspirin. He has residual right-sided weakness that is at baseline with mild slurred speech. He denies any chest pain or shortness of breath. No abdominal pain. Positive nausea. No diarrhea. No fevers/chills. Upper GI bleed Patient with coffee-ground emesis H&H stable -H&H stable, hemoglobin 10, hematocrit 31.4. -Change to p.o. Protonix, complaints of heartburn -Gastroenterology consulted, appreciate recommendations. PEG tube appeared to have migrated, gentle pressure was applied and recommendation was made to connect to suction. -Continue with hydration -Discussed with raven Pierce to restart tube feedings. -We will start patient on Glucerna 1.5 at 10 an hour, advance to goal of 50 with 100 cc water flushes every 4. Metabolic encephalopathy possibly secondary to GI bleed, dehydration. Patient agitated overnight, confused. Patient back to baseline, no agitation. No confusion overnight. IVF -UA negative Leukocytosis with lactic acidosis possibly secondary to GI bleed and dehydration Patient afebrile. Chest x-ray reviewed, no acute findings Febrile overnight -WBC 14.4 UA negative Diabetes mellitus -Holding long-acting insulin given patient n.p.o. -Sliding-scale insulin -Monitor blood glucose History of CVA -[facility] -Physical therapy Hypertension/hyperlipidemia -Resume home medication -Vasotec as needed SCDs for DVT prophylaxis We will restart tube feedings and see how he tolerates Plan to discharge tomorrow back to SNF Cussed with RN, case management, patient, Dr. Mcgraw (3) Dysphagia Qualifiers: Dysphagia type: unspecified Qualified Code(s): R13.10 - Dysphagia, unspecified (4) HTN (hypertension) Qualifiers: Hypertension type: essential hypertension Qualified Code(s): I10 - Essential (primary) hypertension (5) Diabetes Qualifiers: Diabetes mellitus type: type 2 Diabetes mellitus retirement insulin use: unspecified [employer] insulin use status Diabetes mellitus complication status : with neurologic complications Diabetes mellitus complication detail: with other neurological complication Qualified Code(s): E11.49 - Type 2 diabetes mellitus with other diabetic neurological complication
[2018-07-04] MEDS: Pantoprazole Inj 40 MG Vial IV.PUSH SCH (13:51)
[2018-07-04] MEDS: Acetaminophen 325 MG Tablet PO PRN (13:51)
[2018-07-05] MEDS: Acetaminophen 325 MG Tablet PO PRN (01:08)
[2018-07-05] MEDS ORDERED: Morphine Inj 4 MG/ML Vial IV.PUSH ONE (01:45)
[2018-07-05 02:29] LABS: Baso # (Auto) 0.1 th/mm3 (0.0-0.2); Baso % (Auto) 0.4 % (0.0-2.0); Eos # (Auto) 0.3 th/mm3 (0.0-0.4); Eos % (Auto) 2.5 % (0.0-4.0); Hematocrit 31.8 % (39.0-51.0); Hemoglobin 10.1 gm/dL (13.0-17.0); Lymph # (Auto) 0.9 th/mm3 (1.0-4.8); Lymph % (Auto) 7.2 % (9.0-44.0); Mean Corpuscular HGB Conc 31.8 % (32.0-36.0); Mean Corpuscular Hemoglobin 27.1 pg (27.0-34.0); Mean Corpuscular Volume 85.3 fL (80.0-100.0); Mean Platelet Volume 8.6 fL (7.0-11.0); Neut # (Auto) 10.2 th/mm3 (1.8-7.7); Neut % (Auto) 81.9 % (16.0-70.0); Platelet Count 368 th/mm3 (150-450); Red Blood Count 3.72 mil/mm3 (4.50-5.90); Red Cell Distribution Width 16.8 % (11.6-17.2); White Blood Count 12.5 th/mm3 (4.0-11.0)
[2018-07-05 02:46] LABS: Alanine Aminotransferase 23 U/L (12-78); Albumin 3.1 g/dL (3.4-5.0); Anion Gap 10 meq/L (5-15); Aspartate Aminotransferase 16 U/L (15-37); Blood Urea Nitrogen 27 mg/dL (7-18); Calcium 8.3 mg/dL (8.5-10.1); Carbon Dioxide 25.1 meq/L (21.0-32.0); Chloride 108 meq/L (98-107); Glomerular Filtration Rate Greater Than 89 mL/min (>89); Glucose,Random 209 mg/dL (74-106); Potassium 4.4 meq/L (3.5-5.1); Sodium 143 meq/L (136-145)
[2018-07-05 02:48] LABS: Alkaline Phosphatase 105 U/L (45-117); Total Protein 6.9 g/dL (6.4-8.2)
--- NOTE | 2018-07-05 03:56 | CT ---
EXAM DATE: 07/05/2018 3:29 AM EDT AGE/SEX: 62 years / Male INDICATIONS: Right upper quadrant pain. CLINICAL DATA: This is the patient's initial encounter. Patient reports that signs and symptoms have been present for 1 day and indicates a pain score of 8/10. MEDICAL/SURGICAL HISTORY: Diabetes. Hypertension. Stroke. None. ORAL CONTRAST: No oral contrast ingested. RADIATION DOSE: 6.64 CTDI (mGy) COMPARISON: No prior exams available for comparison. TECHNIQUE: Multiple contiguous axial images were obtained through the abdomen and pelvis following b olus infusion of 95 ml Omnipaque 350 (iohexol) nonionic water-soluble contrast as a single exam dos e. No oral contrast ingested. Using automated exposure control and adjustment of the mA and/or kV ac cording to patient size, radiation dose was kept as low as reasonably achievable to obtain optimal di agnostic quality images. DICOM format image data is available electronically for review and comparis on. FINDINGS: Lower Lungs: The visualized lower lungs are clear. Distention of the distal esophagus and concentric narrowing at the level of the GE junction. Liver: The liver has a homogeneous density without space-occupying lesion. There is no dilation of th e biliary tree. No calcified gallstones. Spleen: Homogeneous density without enlargement. Pancreas: Unremarkable without mass or calcification. Kidneys: Normal in size and shape. No evidence of mass or hydronephrosis. Adrenal Glands: Unremarkable. Aorta: The aorta and proximal iliac vessels are grossly unremarkable without aneurysmal dilation. Bowel/Mesentery: No dilated loops of small or large bowel. Mild amount of stool and fluid in the col on. There is distention of the stomach with percutaneous gastric tube in place. Abdominal Wall: Intact. Retroperitoneum: No evidence of adenopathy in the retrocrural, para-aortic, or deep pelvic regions. Bladder: Moderately distended measuring 13 cm in superior/inferior extent. Contours are smooth. Reproductive Organs: No abnormal masses or calcifications seen. Inguinal: Nonspecific bilateral inguinal lymph nodes measuring up to 8 mm. Bony Structures: Ill-defined 1.4 cm area of sclerosis in the right half of the T11 vertebral body. CONCLUSION: 1. Distended distal esophagus, concentric narrowing of the GE junction, gastric distention, and PEG tube in place. 2. Solitary sclerotic lesion in the right half of the T11 vertebral body. If there is history of mal ignancy, this could represent an osseous sclerotic metastatic lesion. 3. Distention of the urinary bladder. Electronically signed by: Og Ames MD 07/05/2018 3:54 AM EDT
[2018-07-05] MEDS: Insulin NovoLOG Aspart Correctional Sugar Inj SQ SCH ×5 (04:38→22:41)
[2018-07-05 08:48] LABS: Hematocrit 37.1 % (39.0-51.0); Hemoglobin 11.6 gm/dL (13.0-17.0); Mean Corpuscular HGB Conc 31.3 % (32.0-36.0); Mean Corpuscular Hemoglobin 27.7 pg (27.0-34.0); Mean Corpuscular Volume 88.6 fL (80.0-100.0); Platelet Count 347 th/mm3 (150-450); Red Blood Count 4.18 mil/mm3 (4.50-5.90); Red Cell Distribution Width 17.1 % (11.6-17.2)
--- NOTE | 2018-07-05 08:53 | P.DIET ---
Nutritional Evaluation Type of nutrition evaluation: initial Nutrition consult regarding: Tube Feeding Objective - Diagnosis Upper GI Bleed w/PEG - Objective [place] body weight: 73 kg % IBW: 97 Body Weight Used for Calculations: Actual (70kg) Energy Needs - Lower Range (kCal/kg): 25 Energy Needs - Upper Range (kCal/kg): 30 Lower Limit kCal/kg (kCals): 1,750 Upper Limit kCal/kg (kCals): 2,100 Lower Limit Protein Factor (Grams per Kg): 1.1 Upper Limit Protein Factor (Grams per Kg): 1.3 Lower Protein Needs (Protein): 77 Upper Protein Needs (Protein): 91 Dietitian Reviewed in Medical Record: Current diet, Curent medications, Intake & Output, Labs, Medical history, Tube feeding Diet Order: TF only Objective Comments: PMH: Anemia, DM, HTN, HLD, stroke Assessment Assessment: Pt at nutritional risk r/t need for a TF for nutritional support. Pt with previous CVA, s/p PEG. Admitted from SNF with coffee grounds emesis via PEG. Per MD: PEG tube appeared to have migrated, gentle pressure was applied and recommendation was made to connect to suction. TF is now restarted with a goal rate of 50 ml/hr to provide 1800kcals, 99gms protein and 911mls free water. This is adequate to meet pt's nutritional needs. Free water flushes per MD. Will monitor TF tolerance. Recommendations: TF Glucerna 1.5 with goal rate 50ml/hr Plan to d/c to SNF tomorrow Dietitian to Monitor: Lab values, Intake & Output, Tube feeding tolerance, Weight change
[2018-07-05 09:09] LABS: Anion Gap 10 meq/L (5-15); Blood Urea Nitrogen 28 mg/dL (7-18); Calcium 8.6 mg/dL (8.5-10.1); Carbon Dioxide 23.4 meq/L (21.0-32.0); Chloride 106 meq/L (98-107); Glomerular Filtration Rate Greater Than 89 mL/min (>89); Glucose,Random 293 mg/dL (74-106); Potassium 4.4 meq/L (3.5-5.1); Sodium 139 meq/L (136-145)
[2018-07-05] MEDS: Ferrrous Sulfate 300 MG/5 ML UDC G-TUBE SCH (11:09)
[2018-07-05] MEDS: Lidocaine 5% Patch T-DERMAL SCH (11:15)
[2018-07-05] MEDS: Aspirin 325 MG Tablet G-TUBE SCH (11:18)
[2018-07-05] MEDS: Metoprolol Tartrate 25 MG Tablet PO SCH ×2 (11:19→22:45)
[2018-07-05] MEDS: amLODIPine 10 MG Tablet G-TUBE SCH (11:19)
[2018-07-05] MEDS: Lisinopril 20 MG Tablet G-TUBE SCH (11:19)
--- NOTE | 2018-07-05 11:26 | P.PN ---
Subjective Interval history: follow up on UGI bleed: Awakes to voice, sleepy, following simple commands. Complained of back pain, given Morphine. Overnight, patient was noted with increased residuals. Tube feedings started at 50 an hour. PEG tube placed to suction. No coffee-ground emesis. Has had 2 large episodes of diarrhea this morning, C. difficile negative. No fever. Slightly tachycardic. Urinary retention, Yadav catheter placed. CT of the abdomen was done. Physical Exam Vital signs: Vital Signs 07/04/18 12:09 07/04/18 15:56 07/04/18 19:31 Temperature 97.5 F L 97.2 F L 98.2 F Pulse Rate 92 H 97 H 99 H Respiratory Rate 16 14 16 Blood Pressure 147/75 H 140/67 165/84 H Pulse Oximetry 100 99 96 07/04/18 20:00 07/04/18 23:48 07/05/18 00:00 Temperature 97.7 F Pulse Rate 102 H 111 H 113 H Respiratory Rate 18 Blood Pressure 133/82 Pulse Oximetry 98 07/05/18 02:37 07/05/18 03:44 07/05/18 03:56 Temperature 97.6 F Pulse Rate 108 H Respiratory Rate 16 16 16 Blood Pressure 159/86 H Pulse Oximetry 97 07/05/18 08:00 Temperature 98.6 F Pulse Rate 112 H Respiratory Rate 18 Blood Pressure Pulse Oximetry 96 Intake & Output 07/04/18 07/05/18 07/05/18 18:59 06:59 18:59 Intake Total 1297.4 / 1297.4 400 / 400 Output Total 2250 / 2250 925 / 925 Balance -952.6 / -952.6 -525 / -525 Intake: IV 1297.4 / 1297.4 Protonix Inj 80 MG In NS Inj 83.4 / 83.4 100 ML @ 10 mls/hr IV.CONT CONT JADA Rx#:[id number] NS Inj 1,000 ML @ 100 mls/hr IV 1214 / 1214 .CONT .Q10H JADA Rx#:[id number] Tube Feeding 400 / 400 Output: Urine 950 / 950 925 / 925 Urine Amount (Catheter) 950 / 950 Condom 950 / 950 Gastric Drainage 350 / 350 Left Upper Quadrant Gastrostomy 350 / 350 Tube (PEG) Narrative: GENERAL: Well-nourished, well-developed patient in no apparent distress. SKIN: Warm and dry. HEAD: Atraumatic. Normocephalic. Facial droop EYES: Pupils equal and round. No scleral icterus. No injection or drainage. ENT: No nasal bleeding or discharge. Mucous membranes pink and moist. NECK: Trachea midline. No JVD. CARDIOVASCULAR: Regular rate and rhythm. RESPIRATORY: No accessory muscle use. Clear to auscultation. Breath sounds equal bilaterally. GASTROINTESTINAL: Abdomen soft, mild epigastric tenderness, nondistended. Hepatic and splenic margins not palpable. PEG tube to low intermittent suction , green gastric drainage. MUSCULOSKELETAL: Extremities without clubbing, cyanosis, or edema. No obvious deformities. NEUROLOGICAL: Sleepy, awakes to voice, orientd x 2. Speech slightly dysarthric. Cooperative. Left-sided hemiparesis. PSYCHIATRIC: Appropriate mood and affect - Urinary Catheter Management Condom Cath placed during this visit: yes Reason for continuing: Chronic Urinary Retention Insertion date: 07/05/18 Insertion time: 03:42 Results - Labs CBC & Chem 7: 07/05/18 08:31 07/05/18 08:31 Laboratory Results - last 24 hr 07/04/18 07/04/18 07/04/18 12:24 16:33 20:33 WBC RBC Hgb Hct MCV MCH MCHC RDW Plt Count MPV Neut % (Auto) Lymph % (Auto) Smith % (Auto) Eos % (Auto) Baso % (Auto) Neut # (Auto) Lymph # (Auto) Smith # (Auto) Eos # (Auto) Baso # (Auto) WBC Differential Differential Comment Sodium Potassium Chloride Carbon Dioxide Anion Gap BUN Creatinine Estimated GFR POC Glucose 138 H 157 H 202 H Random Glucose Calcium Total Bilirubin AST ALT Alkaline Phosphatase Total Protein Albumin St C. diff Tox Epid 027 C. difficile Tox (PCR) 07/05/18 07/05/18 07/05/18 01:30 02:01 02:01 WBC 12.5 H RBC 3.72 L Hgb 10.1 L Hct 31.8 L MCV 85.3 MCH 27.1 MCHC 31.8 L RDW 16.8 Plt Count 368 MPV 8.6 Neut % (Auto) 81.9 H Lymph % (Auto) 7.2 L Smith % (Auto) 8.0 Eos % (Auto) 2.5 Baso % (Auto) 0.4 Neut # (Auto) 10.2 H Lymph # (Auto) 0.9 L Smith # (Auto) 1.0 H Eos # (Auto) 0.3 Baso # (Auto) 0.1 WBC Differential . Differential Comment Auto diff final Sodium 143 Potassium 4.4 Chloride 108 H Carbon Dioxide 25.1 Anion Gap 10 BUN 27 H Creatinine 0.83 Estimated GFR Greater than 89 POC Glucose Random Glucose 209 H Calcium 8.3 L Total Bilirubin 0.5 AST 16 ALT 23 Alkaline Phosphatase 105 Total Protein 6.[address] C. diff Tox Epid 027 Negative C. difficile Tox (PCR) Negative 07/05/18 07/05/18 07/05/18 03:33 08:31 08:31 WBC 12.0 H RBC 4.18 L Hgb 11.6 L Hct 37.1 L MCV 88.6 MCH 27.7 MCHC 31.3 L RDW 17.1 Plt Count 347 MPV 9.0 Neut % (Auto) Lymph % (Auto) Smith % (Auto) Eos % (Auto) Baso % (Auto) Neut # (Auto) Lymph # (Auto) Smith # (Auto) Eos # (Auto) Baso # (Auto) WBC Differential Differential Comment Sodium 139 Potassium 4.4 Chloride 106 Carbon Dioxide 23.4 Anion Gap 10 BUN 28 H Creatinine 0.95 Estimated GFR Greater than 89 POC Glucose 210 H Random Glucose 293 H Calcium 8.6 Total Bilirubin AST ALT Alkaline Phosphatase Total Protein Albumin St C. diff Tox Epid 027 C. difficile Tox (PCR) 07/05/18 09:12 WBC RBC Hgb Hct MCV MCH MCHC RDW Plt Count MPV Neut % (Auto) Lymph % (Auto) Smith % (Auto) Eos % (Auto) Baso % (Auto) Neut # (Auto) Lymph # (Auto) Smith # (Auto) Eos # (Auto) Baso # (Auto) WBC Differential Differential Comment Sodium Potassium Chloride Carbon Dioxide Anion Gap BUN Creatinine Estimated GFR POC Glucose 289 H Random Glucose Calcium Total Bilirubin AST ALT Alkaline Phosphatase Total Protein Albumin St C. diff Tox Epid 027 C. difficile Tox (PCR) - Imaging Impressions Abdomen/Pelvis CT 07/05/18 01:40 CONCLUSION: 1. Distended distal esophagus, concentric narrowing of the GE junction, gastric distention, and PEG tube in place. 2. Solitary sclerotic lesion in the right half of the T11 vertebral body. If there is history of malignancy, this could represent an osseous sclerotic metastatic lesion. 3. Distention of the urinary bladder. Assessment and Plan - Assessment (1) Acute upper GI bleed Code(s): K92.2 - Gastrointestinal hemorrhage, unspecified Status: Acute (2) History of lacunar cerebrovascular accident (CVA) Code(s): Z86.73 - Personal history of transient ischemic attack (TIA), and cerebral infarction without residual deficits Status: Chronic (3) Dysphagia Code(s): R13.10 - Dysphagia, unspecified Status: Chronic (4) HTN (hypertension) Code(s): I10 - Essential (primary) hypertension Status: Chronic (5) Diabetes Code(s): E11.9 - Type 2 diabetes mellitus without complications Status: Chronic (6) Metabolic encephalopathy Code(s): G93.41 - Metabolic encephalopathy Status: Acute - Plan Assessment/plan 62-year-old male with past medical history significant for previous CVA, anemia , diabetes mellitus, hypertension and hyperlipidemia presents to the emergency department for the evaluation of coffee-ground emesis and coffee-ground discharge from his PEG tube. The patient was recently hospitalized for an acute CVA and discharged from the hospital on 07/01/18. The patient was brought in from his SNF for further evaluation. Patient takes daily aspirin. He has residual right-sided weakness that is at baseline with mild slurred speech. He denies any chest pain or shortness of breath. No abdominal pain. Positive nausea. No diarrhea. No fevers/chills. Upper GI bleed Patient with coffee-ground emesis H&H stable Overnight with increased residuals after started on tube feedings. CT of the abdomen done, distended distal esophagus, concentric narrowing of the GE junction, gastric distention and PEG tube in place. -H&H stable, hemoglobin 10, hematocrit 31.4. -Continue with PPI -Gastroenterology consulted, appreciate recommendations. PEG tube appeared to have migrated, gentle pressure was applied and recommendation was made to connect to suction. -Discussed with raven Pierce to restart tube feedings. -We will restart tube feedings at 10 an hour, and increased to 50 x 10 mL's per hour. Dietitian consult in place Discussed with RN to make sure feeding is started at 10 not at full dose of 50 -Discontinue peg tube from suction Diarrhea overnight, likely secondary to fast rate of tube feeding Negative for C. difficile Restart tube feeding as prescribed. Discussed with RN Metabolic encephalopathy possibly secondary to GI bleed, dehydration. Patient agitated overnight, confused. Patient back to baseline, no agitation. No confusion overnight. Somnolent at this time, likely secondary to morphine Continue to monitor Leukocytosis with lactic acidosis possibly secondary to GI bleed and dehydration Patient afebrile. Chest x-ray reviewed, no acute findings Febrile overnight -WBC trending down, 12 UA negative Urinary retention Continue with Yadav catheter We will start oxybutynin 5 mg via PEG. twice daily CT findings of solitary sclerotic lesion in the right half of the T11 vertebral body, questionable for malignancy. Patient with history of smoking. C/O back pain as well Bone scan will be ordered -OOB with PT -Add Lidocaine patch Diabetes mellitus -Holding long-acting insulin given patient n.p.o. -Sliding-scale insulin -Monitor blood glucose History of CVA -Anticipate discharge to alf facility -Physical therapy -Out of bed with PT Hypertension/hyperlipidemia -Continue Norvasc -Vasotec as needed Tachycardic -start Lopressor 12.5 mg po bid SCDs for DVT prophylaxis We will restart tube feedings again and see how he tolerates Follow up on bone scan results Plan to discharge tomorrow back to SNF Discussed with RN, case management, patient (3) Dysphagia Qualifiers: Dysphagia type: unspecified Qualified Code(s): R13.10 - Dysphagia, unspecified (4) HTN (hypertension) Qualifiers: Hypertension type: essential hypertension Qualified Code(s): I10 - Essential (primary) hypertension (5) Diabetes Qualifiers: Diabetes mellitus type: type 2 Diabetes mellitus long term care administrator insulin use: unspecified mcfp insulin use status Diabetes mellitus complication status : with neurologic complications Diabetes mellitus complication detail: with other neurological complication Qualified Code(s): E11.49 - Type 2 diabetes mellitus with other diabetic neurological complication
--- NOTE | 2018-07-05 13:31 | P.DIET ---
Nutritional Evaluation Nutrition consult regarding: Tube Feeding Nutrition screening: [facility] Screening comments: Has excessive diarrhea Objective - Diagnosis Upper GI Bleed w/PEG - Objective [place] body weight: 73 kg % IBW: 97 Body Weight Used for Calculations: Actual (70kg) Energy Needs - Lower Range (kCal/kg): 25 Energy Needs - Upper Range (kCal/kg): 30 Lower Limit kCal/kg (kCals): 1,750 Upper Limit kCal/kg (kCals): 2,100 Lower Limit Protein Factor (Grams per Kg): 1.1 Upper Limit Protein Factor (Grams per Kg): 1.3 Lower Protein Needs (Protein): 77 Upper Protein Needs (Protein): 91 Dietitian Reviewed in Medical Record: Current diet, Curent medications, Intake & Output, Labs, Medical history, Tube feeding Diet Order: TF only Objective Comments: PMH: Anemia, DM, HTN, HLD, stroke Assessment Assessment: Pt at nutritional risk r/t need for a TF for nutritional support. Pt with previous CVA, s/p PEG. Admitted from SNF with coffee grounds emesis via PEG. Per MD: PEG tube appeared to have migrated, gentle pressure was applied and recommendation was made to connect to suction. TF Glucerna 1.5 was initially started at 50 ml/hr, pt experienced diarrhea, TF was stopped. Now TF has been restarted at 10 ml/hr, increase by 10 ml/hr until goal rate of 50 ml/hr is reached. This will provide 1800kcals, 99gms protein and 911mls free water which is adequate to meet pt's nutritional needs. Free water flushes per MD. Will monitor TF tolerance. Recommendations: TF Glucerna 1.5 restarted at 10ml/hr with goal rate 50ml/hr Plan to d/c to SNF tomorrow Dietitian to Monitor: Lab values, Intake & Output, Tube feeding tolerance, Weight change
[2018-07-05] MEDS: Pantoprazole Inj 40 MG Vial IV.PUSH SCH (13:40)
[2018-07-06] MEDS: Insulin NovoLOG Aspart Correctional Sugar Inj SQ SCH ×5 (05:57→23:01)
[2018-07-06 07:29] LABS: Hematocrit 31.4 % (39.0-51.0); Mean Corpuscular Hemoglobin 27.5 pg (27.0-34.0); Mean Corpuscular Volume 86.2 fL (80.0-100.0); Mean Platelet Volume 9.1 fL (7.0-11.0); Platelet Count 383 th/mm3 (150-450); Red Blood Count 3.64 mil/mm3 (4.50-5.90); Red Cell Distribution Width 16.5 % (11.6-17.2); White Blood Count 11.6 th/mm3 (4.0-11.0)
[2018-07-06 08:05] LABS: Anion Gap 8 meq/L (5-15); Blood Urea Nitrogen 33 mg/dL (7-18); Calcium 8.4 mg/dL (8.5-10.1); Carbon Dioxide 26.8 meq/L (21.0-32.0); Chloride 109 meq/L (98-107); Glomerular Filtration Rate Greater Than 89 mL/min (>89); Glucose,Random 290 mg/dL (74-106); Potassium 4.4 meq/L (3.5-5.1); Sodium 144 meq/L (136-145)
[2018-07-06] MEDS: Lidocaine 5% Patch T-DERMAL SCH (08:44)
[2018-07-06] MEDS: amLODIPine 10 MG Tablet G-TUBE SCH (08:45)
[2018-07-06] MEDS: Ferrrous Sulfate 300 MG/5 ML UDC G-TUBE SCH (08:45)
[2018-07-06] MEDS: Metoprolol Tartrate 25 MG Tablet PO SCH ×2 (08:45→23:01)
[2018-07-06] MEDS: Aspirin 325 MG Tablet G-TUBE SCH (08:45)
[2018-07-06] MEDS: Lisinopril 20 MG Tablet G-TUBE SCH (08:46)
--- NOTE | 2018-07-06 09:32 | P.PNIM ---
Subjective Interval history: Patient complains of dry mouth. Requesting food to eat. No complaints of pain near PEG tube site. Physical Exam Vital signs: Vital Signs 07/05/18 12:00 07/05/18 16:00 07/05/18 20:00 Temperature 97.7 F 97.7 F 98.0 F Pulse Rate 104 H 95 H 96 H Respiratory Rate 18 18 17 Blood Pressure 122/67 158/72 H 142/75 H Pulse Oximetry 97 96 100 07/06/18 00:00 07/06/18 04:00 Temperature 98.0 F 98.0 F Pulse Rate 83 85 Respiratory Rate 17 17 Blood Pressure 129/69 119/60 Pulse Oximetry 99 98 Intake & Output 07/05/18 07/06/18 07/06/18 18:59 06:59 18:59 Intake Total 90 / 90 Output Total 460 / 460 620 / 620 Balance -370 / -370 -620 / -620 Weight 70 kg Intake: Tube Irrigant 90 / 90 Output: Urine 460 / 460 Urine Amount (Catheter) 620 / 620 Straight 620 / 620 Narrative: General patient in no acute distress HEENT extraocular movements are intact, moist oral pharyngeal mucosa Cardiovascular S1-S2 audible Respiratory clear to auscultation bilaterally Abdomen soft, nontender, nondistended, normal bowel sounds, PEG tube in place, no signs of erythema near the PEG tube site. Extremities no edema 2+ distal pulses in bilateral upper and lower extremities Neuro left-sided hemiplegia. Patient can move his right upper and right lower extremity 5 out of 5 strength. Sensation is intact bilaterally. Left-sided facial droop noted. Dysarthria noted. Finger to nose test with the patient's right side is intact. Full neurological examination unable to perform due to the patient's deficits. - Urinary Catheter Management Condom Cath placed during this visit: yes, but has since been removed by the nurse Reason for continuing: Not indwelling catheter Insertion date: 07/05/18 Insertion time: 16:30 Removal date: 07/05/18 Removal time: 16:45 Straight Cath placed during this visit: no Results - Labs CBC & Chem 7: 07/06/18 06:17 07/06/18 06:17 Laboratory Results - last 24 hr 07/05/18 07/05/18 07/05/18 09:12 12:36 17:23 WBC RBC Hgb Hct MCV MCH MCHC RDW Plt Count MPV Sodium Potassium Chloride Carbon Dioxide Anion Gap BUN Creatinine Estimated GFR POC Glucose 289 H 295 H 209 H Random Glucose Calcium 07/05/18 07/06/18 07/06/18 22:38 06:17 06:17 WBC 11.6 H RBC 3.64 L Hgb 10.0 L Hct 31.4 L MCV 86.2 MCH 27.5 MCHC 32.0 RDW 16.5 Plt Count 383 MPV 9.1 Sodium 144 Potassium 4.4 Chloride 109 H Carbon Dioxide 26.8 Anion Gap 8 BUN 33 H Creatinine 0.94 Estimated GFR Greater than 89 POC Glucose 256 H Random Glucose 290 H Calcium 8.4 L 07/06/18 07:52 WBC RBC Hgb Hct MCV MCH MCHC RDW Plt Count MPV Sodium Potassium Chloride Carbon Dioxide Anion Gap BUN Creatinine Estimated GFR POC Glucose 371 H Random Glucose Calcium Assessment and Plan - Assessment (1) Acute upper GI bleed Code(s): K92.2 - Gastrointestinal hemorrhage, unspecified Status: Acute (2) History of lacunar cerebrovascular accident (CVA) Code(s): Z86.73 - Personal history of transient ischemic attack (TIA), and cerebral infarction without residual deficits Status: Chronic (3) Dysphagia Code(s): R13.10 - Dysphagia, unspecified Status: Chronic (4) HTN (hypertension) Code(s): I10 - Essential (primary) hypertension Status: Chronic (5) Diabetes Code(s): E11.9 - Type 2 diabetes mellitus without complications Status: Chronic (6) Metabolic encephalopathy Code(s): G93.41 - Metabolic encephalopathy Status: Acute - Plan This patient is a 62-year-old male with a known history of diabetes mellitus type 2 hypertension dyslipidemia. He was recently seen at our facility and discharged on 07/01/2018 for an acute ischemic CVA which has left the patient with flaccid left sided hemiparesis. He had a PEG tube placed during his last admission. He was sent to our facility a few days ago after he was found to have coffee-ground like material coming from the PEG tube. There is a concern that the patient may be having a GI bleed and he was sent to our further evaluation and care. 1. GI bleed likely from recent PEG tube placement and displacement. As mentioned above the patient presented with [id number] material coming from the PEG tube. He has chronic anemia as per documentation and has hemoglobin has remained stable throughout hospitalization. He was started on Protonix and GI was consulted to evaluate the patient. The PEG tube was readjusted by the presser automatic. He is tolerating his PEG tube feeds. The bleeding from the PEG tube has stopped. He can continue aspirin which she will benefit from from his recent CVA. 2. CT findings of solitary sclerotic lesion in the right half of the T11 vertebral body, questionable for malignancy. The patient with history of smoking. He does have complaints of back pain. Bone scan has been ordered, will follow up on results of the bone scan. 3. Recent ischemic CVA Continue aspirin, continue statin. Physical therapy will continue to follow patient. 4. Hyperglycemia secondary to uncontrolled diabetes mellitus type 2 On arrival the patient was kept n.p.o. due to his PEG tube findings mentioned above. His diabetes mellitus type 2 medications were held, due to the concern of hypoglycemia. He is now tolerating PEG tube feeds. Lantus has been initiated, continue low-dose insulin sliding scale, his diabetes mellitus type 2 medication regimen will be adjusted as needed. 5. Hypertension/dyslipidemia Continue home medications. (3) Dysphagia Qualifiers: Dysphagia type: unspecified Qualified Code(s): R13.10 - Dysphagia, unspecified (4) HTN (hypertension) Qualifiers: Hypertension type: essential hypertension Qualified Code(s): I10 - Essential (primary) hypertension (5) Diabetes Qualifiers: Diabetes mellitus type: type 2 Diabetes mellitus usp insulin use: unspecified terminal carman insulin use status Diabetes mellitus complication status : with neurologic complications Diabetes mellitus complication detail: with other neurological complication Qualified Code(s): E11.49 - Type 2 diabetes mellitus with other diabetic neurological complication
[2018-07-06] MEDS: Insulin Detemir Inj 1,000 UNIT/10 ML Vial SQ SCH (12:24)
--- NOTE | 2018-07-06 14:46 | NM ---
INDICATIONS: Bone lesion seen on CT scan. Metastases. CLINICAL DATA: This is the patient's initial encounter. Patient reports that signs and symptoms have been present for 1 day and indicates a pain score of 5/10. MEDICAL/SURGICAL HISTORY: Diabetes mellitus type II. Hypertension. None. COMPARISON: [facility] [place], CT ABDOMEN & PELVIS W CONTRAST, 07/05/2018. . TECHNIQUE: . Blood pool imaging was performed after injection of radiotracer.. Whole body bone scan was performed at 2-3 hours. No correlative bone scan available for comparison. DOSE: 31 mCi Tc99m MDP IV FINDINGS: In the T11 vertebral body suspicious for metastatic disease. No other abnormal areas of increased or decreased radiotracer activity are identified. MRI of the thoracic lumbar junction with contrast woul d be of benefit. CONCLUSION: 1. Focal uptake T11 as described above. Electronically signed by: Osmel Ulloa MD 07/06/2018 2:45 PM EDT
[2018-07-06] MEDS: Pantoprazole Inj 40 MG Vial IV.PUSH SCH (15:34)
[2018-07-07] MEDS: Insulin NovoLOG Aspart Correctional Sugar Inj SQ SCH ×5 (03:18→22:27)
[2018-07-07] MEDS: amLODIPine 10 MG Tablet G-TUBE SCH (09:56)
[2018-07-07] MEDS: Metoprolol Tartrate 25 MG Tablet PO SCH ×2 (09:56→22:26)
[2018-07-07] MEDS: Ferrrous Sulfate 300 MG/5 ML UDC G-TUBE SCH (09:57)
[2018-07-07] MEDS: Aspirin 325 MG Tablet G-TUBE SCH (09:58)
[2018-07-07] MEDS: Lisinopril 20 MG Tablet G-TUBE SCH (09:58)
[2018-07-07] MEDS: Lidocaine 5% Patch T-DERMAL SCH (09:59)
[2018-07-07] MEDS: Insulin Detemir Inj 1,000 UNIT/10 ML Vial SQ SCH (09:59)
--- NOTE | 2018-07-07 14:20 | P.PNIM ---
Subjective Interval history: Patient reports he is feeling okay today. He wants to work with physical therapy. Discussed with RN. He continues to have urinary retention requiring straight cath. There is reported history of BPH. Physical Exam Vital signs: Vital Signs 07/06/18 16:00 07/06/18 18:00 07/06/18 20:00 Temperature 98 F 98.2 F Pulse Rate 85 87 92 H Respiratory Rate 20 18 Blood Pressure 120/60 119/63 Pulse Oximetry 98 98 07/07/18 00:00 07/07/18 04:00 07/07/18 08:00 Temperature 97.7 F 97.6 F 97.8 F Pulse Rate 81 88 87 Respiratory Rate 18 18 20 Blood Pressure 118/74 141/69 H 136/75 Pulse Oximetry 95 96 100 07/07/18 12:00 Temperature 97.9 F Pulse Rate 76 Respiratory Rate 20 Blood Pressure 129/67 Pulse Oximetry 99 Intake & Output 07/06/18 07/07/18 07/07/18 18:59 06:59 18:59 Intake Total 600 / 600 Output Total 525 / 525 350 / 350 Balance -525 / -525 250 / 250 Weight 40 kg Intake: Tube Feeding 500 / 500 Tube Irrigant 100 / 100 Output: Urine 350 / 350 Urine Amount (Catheter) 525 / 525 Straight 525 / 525 Other: Date of Last Bowel Movement 07/04/18 07/06/18 07/06/18 Narrative: GENERAL: Frail and cachectic male, in no apparent distress. CARDIOVASCULAR: Normal rate and regular rhythm without murmurs, gallops, or rubs. RESPIRATORY: Good respiratory efforts. Breath sounds equal and clear to auscultation bilaterally. GASTROINTESTINAL: Abdomen soft, non-tender, non-distended. PEG tube in place. Normal active bowel sounds MUSCULOSKELETAL: Extremities without cyanosis, or edema. NEURO: Alert & Oriented. Left-sided hemiparesis - Urinary Catheter Management Condom Cath placed during this visit: yes, but has since been removed by the nurse Reason for continuing: Not indwelling catheter Insertion date: 07/05/18 Insertion time: 16:30 Removal date: 07/05/18 Removal time: 16:45 Straight Cath placed during this visit: yes Reason for continuing: Not indwelling catheter Insertion date: 07/07/18 Insertion time: 02:45 Results - Labs CBC & Chem 7: 07/06/18 06:17 07/06/18 06:17 Laboratory Results - last 24 hr 07/06/18 07/06/18 07/07/18 16:51 19:44 03:11 POC Glucose 84 121 H 395 H 07/07/18 07/07/18 07/07/18 03:13 07:54 11:59 POC Glucose 332 H 293 H 326 H - Imaging Impressions Bone Scan Nuclear Medicine 07/06/18 00:00 CONCLUSION: 1. Focal uptake T11 as described above. Assessment and Plan - Assessment (1) Acute upper GI bleed Code(s): K92.2 - Gastrointestinal hemorrhage, unspecified Status: Acute (2) History of lacunar cerebrovascular accident (CVA) Code(s): Z86.73 - Personal history of transient ischemic attack (TIA), and cerebral infarction without residual deficits Status: Chronic (3) Dysphagia Code(s): R13.10 - Dysphagia, unspecified Status: Chronic (4) HTN (hypertension) Code(s): I10 - Essential (primary) hypertension Status: Chronic (5) Diabetes Code(s): E11.9 - Type 2 diabetes mellitus without complications Status: Chronic (6) Metabolic encephalopathy Code(s): G93.41 - Metabolic encephalopathy Status: Acute - Plan 62-year-old male with a known history of diabetes mellitus, hypertension, dyslipidemia. He was recently seen at our facility and discharged on 07/01/2018 for an acute ischemic CVA which has left the patient with flaccid left sided hemiparesis. He had a PEG tube placed during his last admission. He was sent to our facility a few days ago after he was found to have coffee-ground like material coming from the PEG tube. There is a concern that the patient may be having a GI bleed and he was sent to our further evaluation and care. 1. GI bleed likely from recent PEG tube placement and displacement. As mentioned above the patient presented with komfoo-uygyew-aoyo material coming from the PEG tube. He has chronic anemia as per documentation and has hemoglobin has remained stable throughout hospitalization. He was started on Protonix and GI was consulted to evaluate the patient. The PEG tube was readjusted by the yardage caller. He is tolerating his PEG tube feeds. The bleeding from the PEG tube has stopped. He can continue aspirin which she will benefit from from his recent CVA. 2. CT findings of solitary sclerotic lesion in the right half of the T11 vertebral body, questionable for malignancy. The patient with history of smoking. He does have complaints of back pain. Bone scan has been ordered, will follow up on results of the bone scan. 3. Recent ischemic CVA Continue aspirin, continue statin. Physical therapy will continue to follow patient. 4. Hyperglycemia secondary to uncontrolled diabetes mellitus type 2 On arrival the patient was kept n.p.o. due to his PEG tube findings mentioned above. His diabetes mellitus type 2 medications were held, due to the concern of hypoglycemia. He is now tolerating PEG tube feeds. Lantus has been initiated, continue low-dose insulin sliding scale, his diabetes mellitus type 2 medication regimen will be adjusted as needed. 5. Hypertension/dyslipidemia Continue home medications. 6. Urinary retention: Reported history of BPH. - We will discontinue oxybutynin and start him on Flomax. - Continue serial bladder scan. Straight cath as needed. - If no significant improvement, will consider Yadav catheter. Discharge Planning: Probable discharge back to SNF tomorrow. (3) Dysphagia Qualifiers: Dysphagia type: unspecified Qualified Code(s): R13.10 - Dysphagia, unspecified (4) HTN (hypertension) Qualifiers: Hypertension type: essential hypertension Qualified Code(s): I10 - Essential (primary) hypertension (5) Diabetes Qualifiers: Diabetes mellitus type: type 2 Diabetes mellitus assisted insulin use: unspecified manager long term care insulin use status Diabetes mellitus complication status : with neurologic complications Diabetes mellitus complication detail: with other neurological complication Qualified Code(s): E11.49 - Type 2 diabetes mellitus with other diabetic neurological complication
[2018-07-07] MEDS: Pantoprazole Inj 40 MG Vial IV.PUSH SCH (15:25)
[2018-07-08 01:45] VITALS: O2SAT 98
[2018-07-08] MEDS: Insulin NovoLOG Aspart Correctional Sugar Inj SQ SCH ×3 (03:39→13:55)
[2018-07-08] MEDS: Lidocaine 5% Patch T-DERMAL SCH (09:16)
[2018-07-08] MEDS: Metoprolol Tartrate 25 MG Tablet PO SCH (09:17)
[2018-07-08] MEDS: amLODIPine 10 MG Tablet G-TUBE SCH (09:17)
[2018-07-08] MEDS: Aspirin 325 MG Tablet G-TUBE SCH (09:17)
[2018-07-08] MEDS: Lisinopril 20 MG Tablet G-TUBE SCH (09:17)
[2018-07-08] MEDS: Ferrrous Sulfate 300 MG/5 ML UDC G-TUBE SCH (09:17)
[2018-07-08] MEDS: Insulin Detemir Inj 1,000 UNIT/10 ML Vial SQ SCH (10:00)
--- NOTE | 2018-07-08 14:49 | P.DS ---
Date of admission: 07/05/18 11:08 Primary care physician: UNKNOWN Brief History from admission: HPI from the admitting physician 62-year-old male with past medical history significant for previous CVA, anemia , diabetes mellitus, hypertension and hyperlipidemia presents to the emergency department for the evaluation of coffee-ground emesis and coffee-ground discharge from his PEG tube. The patient was recently hospitalized for an acute CVA and discharged from the hospital on 07/01/18. The patient was brought in from his SNF for further evaluation. Patient takes daily aspirin. He has residual right-sided weakness that is at baseline with mild slurred speech. He denies any chest pain or shortness of breath. No abdominal pain. Positive nausea. No diarrhea. No fevers/chills. DS: Diagnosis - Discharge Diagnosis (1) Acute upper GI bleed Status: Acute (2) History of lacunar cerebrovascular accident (CVA) Status: Chronic (3) Dysphagia Status: Chronic (4) HTN (hypertension) Status: Chronic (5) Diabetes Status: Chronic (6) Metabolic encephalopathy Status: Acute DS: Summary Hospital Course: 62-year-old male with a known history of diabetes mellitus, hypertension, dyslipidemia. He was recently seen at our facility and discharged on 07/01/2018 for an acute ischemic CVA which has left the patient with flaccid left sided hemiparesis. He had a PEG tube placed during his last admission. He was sent to our facility a few days ago after he was found to have coffee-ground like material coming from the PEG tube. There is a concern that the patient may be having a GI bleed and he was sent to our further evaluation and care. Evaluation and treatment course detailed below: 1. GI bleed likely from recent PEG tube placement and displacement. As mentioned above the patient presented with kcwlim-zxwwym-ulwl material coming from the PEG tube. He has chronic anemia as per documentation and has hemoglobin has remained stable throughout hospitalization. He was started on Protonix and GI was consulted to evaluate the patient. The PEG tube was readjusted by the commercial ocean clammer. He is tolerating his PEG tube feeds. The bleeding from the PEG tube has stopped. He can continue aspirin which she will benefit from from his recent CVA. 2. CT findings of solitary sclerotic lesion in the right half of the T11 vertebral body, questionable for malignancy. The patient with history of smoking. A bone scan showed uptake at T11 which is concerning for malignancy. The patient is advised to follow-up outpatient with PCP for oncology referral for further workup. 3. Recent ischemic CVA Continue aspirin, continue statin. Physical therapy will continue to follow patient. 4. Hyperglycemia secondary to uncontrolled diabetes mellitus type 2 On arrival the patient was kept n.p.o. due to his PEG tube findings mentioned above. His diabetes mellitus type 2 medications were held, due to the concern of hypoglycemia. He is now tolerating PEG tube feeds. Lantus has been initiated, continue low-dose insulin sliding scale, his diabetes mellitus type 2 medication regimen adjusted. 5. Hypertension/dyslipidemia Continue home medications. 6. Urinary retention: Reported history of BPH. -Discontinued oxybutynin and start him on Flomax. -Symptoms resolved. - Time Spent with Patient Total time spent providing and/or coordinating discharge services: Greater than 30 minutes - Quality: VTE Deep Vein Thrombosis/Pulmonary Embolism Present on Admission: No Exam Vital signs: Vital Signs 07/07/18 16:00 07/07/18 20:00 07/08/18 00:00 Temperature 97.1 F L 97.6 F 97.7 F Pulse Rate 86 91 H 86 Respiratory Rate 20 18 17 Blood Pressure 138/76 116/61 115/66 Pulse Oximetry 99 96 98 07/08/18 04:00 07/08/18 08:00 07/08/18 12:00 Temperature 97.4 F L 97.8 F 98.5 F Pulse Rate 90 93 H 89 Respiratory Rate 17 17 16 Blood Pressure 134/72 148/82 H 130/64 Pulse Oximetry 98 98 98 07/08/18 13:00 Temperature 98.4 F Pulse Rate 72 Respiratory Rate 20 Blood Pressure 132/66 Pulse Oximetry Intake & Output 07/07/18 07/08/18 07/08/18 18:59 06:59 18:59 Intake Total 1031 / 1031 Output Total 550 / 550 6 / 6 Balance 481 / 481 -6 / -6 Weight 40.1 kg Intake: Tube Feeding 981 / 981 Tube Irrigant 50 / 50 Output: Urine 6 / 6 Urine Amount (Catheter) 550 / 550 Straight 550 / 550 Other: # Incontinent Voids 3 Date of Last Bowel Movement 07/06/18 07/06/18 07/06/18 Narrative: GENERAL: Frail and cachectic male, in no apparent distress. CARDIOVASCULAR: Normal rate and regular rhythm without murmurs, gallops, or rubs. RESPIRATORY: Good respiratory efforts. Breath sounds equal and clear to auscultation bilaterally. GASTROINTESTINAL: Abdomen soft, non-tender, non-distended. PEG tube in place. Normal active bowel sounds MUSCULOSKELETAL: Extremities without cyanosis, or edema. NEURO: Alert & Oriented. Left-sided hemiparesis Results Procedures completed during hospitalization: PEG tube replacement Labs on day of discharge: Labs from last 24 hours 07/08/18 07/08/18 07/08/18 12:59 08:39 03:34 POC Glucose 346 H 297 H 293 H 07/07/18 07/07/18 21:43 16:21 POC Glucose 338 H 251 H - Impressions ITS Impressions Chest X-Ray 07/03/18 00:01 CONCLUSION: The lungs are clear. No evidence of free intraperitoneal gas. Cervical Spine CT 07/03/18 02:07 CONCLUSION: 1. Negative trauma CT cervical spine. Head CT 07/03/18 02:07 CONCLUSION: 1. Increased hypodensity in the right sheets radiata when compared to 06/24/2018 , characteristic of an evolving nonhemorrhagic infarction. 2. Stable left striatum lacunar infarct. . Abdomen/Pelvis CT 07/05/18 01:40 CONCLUSION: 1. Distended distal esophagus, concentric narrowing of the GE junction, gastric distention, and PEG tube in place. 2. Solitary sclerotic lesion in the right half of the T11 vertebral body. If there is history of malignancy, this could represent an osseous sclerotic metastatic lesion. 3. Distention of the urinary bladder. Bone Scan Nuclear Medicine 07/06/18 00:00 CONCLUSION: 1. Focal uptake T11 as described above. Discharge Plan - Discharge Disposition Patient Disposition: Discharge to SNF - Discharge Condition Condition: Stable - Discharge Order Discharge Orders: Discharge Order (Routine); Ordered 07/08/18 Ordered By: dAilene Owen - Physicians Team Primary Care Provider: UNKNOWN, Attending Provider: Adilene Owen Other Providers: Gabo Mcgraw MD ; [facility],Agency
[2018-07-08 17:35] VITALS: BP 127/60; PULSE 88; RESP 18; TEMP 98.6
== END 2018-07-08 18:46 ==
LOC: NEPC 22:39 → NEDA 07-03 01:21 → INTOOBSV 07-03 01:21 → NEPFCDU 07-03 04:49 → N05 07-05 18:29
PROVIDERS: ADMIT Family Medicine; ATTEND Family Medicine

== ENCOUNTER 2018-07-11 22:12 | Inpatient (IN) ==
[2018-07-11] MEDS ORDERED: Pantoprazole Inj 40 MG Vial IV.PUSH ONE (22:51)
[2018-07-11 23:10] LABS: Baso # (Auto) 0.1 th/mm3 (0.0-0.2); Baso % (Auto) 0.7 % (0.0-2.0); Eos # (Auto) 0.1 th/mm3 (0.0-0.4); Eos % (Auto) 0.4 % (0.0-4.0); Hemoglobin 10.3 gm/dL (13.0-17.0); Lymph # (Auto) 2.1 th/mm3 (1.0-4.8); Lymph % (Auto) 10.1 % (9.0-44.0); Mean Corpuscular HGB Conc 31.3 % (32.0-36.0); Mean Corpuscular Hemoglobin 27.5 pg (27.0-34.0); Mean Corpuscular Volume 87.8 fL (80.0-100.0); Mean Platelet Volume 9.3 fL (7.0-11.0); Mono # (Auto) 1.3 th/mm3 (0.0-0.9); Mono % (Auto) 6.1 % (0.0-8.0); Neut # (Auto) 17.4 th/mm3 (1.8-7.7); Neut % (Auto) 82.7 % (16.0-70.0); Platelet Count 523 th/mm3 (150-450); Red Blood Count 3.76 mil/mm3 (4.50-5.90); Red Cell Distribution Width 17.2 % (11.6-17.2); White Blood Count 21.1 th/mm3 (4.0-11.0)
[2018-07-11 23:18] LABS: Activated Partial Thrombo Time 24.8 sec (24.3-30.1); Prothrombin Time 10.1 sec (9.8-11.6)
--- NOTE | 2018-07-11 23:30 | ED ---
HPI General Chief complaint: GI Bleed Stated complaint: Poss GI Bleed Time Seen by Provider: 07/11/18 22:26 History of Present Illness HPI Narrative: This is a 62-year-old male with a history of hypertension, diabetes mellitus, previous CVA with left-sided weakness, who [facility] with reported coffee-ground material coming from his G-tube site. The patient reports he has a history of reflux. He states that he has not noted any blood but was told that he had blood coming from his G-tube site. He denies any vomiting. He denies any melanotic stool but does report that he does not look at his stool. He was not able to give any further history. He has no complaints of chest pain, chest pressure. He has no complaints of dizziness. There are no other complaints. Related Data Home Medications Medication Instructions Recorded Confirmed amlodipine 10 mg FEEDING TUBE DAILY 06/27/18 07/11/18 cyclobenzaprine 10 mg FEEDING TUBE TID PRN 06/27/18 07/11/18 ferrous sulfate 325 mg FEEDING TUBE DAILY 06/27/18 07/11/18 lisinopril 20 mg FEEDING TUBE DAILY 06/27/18 07/11/18 metformin 1,000 mg FEEDING TUBE BID 06/27/18 07/11/18 atorvastatin [Lipitor] 10 mg FEEDING TUBE HS 07/03/18 07/11/18 magnesium citrate 296 ml FEEDING TUBE DAILY PRN 07/03/18 07/11/18 magnesium hydroxide [Milk of 30 ml FEEDING TUBE DAILY PRN 07/03/18 07/11/18 Magnesia] sennosides [Senna Lax] 2 tab FEEDING TUBE Q12H PRN 07/03/18 07/11/18 Previous Rx's Medication Instructions Recorded insulin aspart U-100 [Novolog 0 unit SUB-Q ACHS #1 vial 06/26/18 U-100 Insulin aspart] bisacodyl [Bisac-Evac] 10 mg AL DAILY PRN ea 06/30/18 insulin detemir U-100 [Levemir 10 unit SUB-Q BID ml 06/30/18 U-100 Insulin] aspirin 325 mg G-TUBE DAILY tab 07/08/18 metoprolol tartrate 12.5 mg PO BID #0 tab 07/08/18 tamsulosin 0.4 mg PO DAILY cap 09/12/18 Allergies Allergy/AdvReac Type Severity Reaction Status Date / Time No Known Allergies Allergy Verified 07/11/18 22:34 Review of Systems ROS: all other systems reviewed are negative Constitutional Reports system reviewed and no additional complaints, except as docu Eyes Reports system reviewed and no additional complaints, except as docu ENT Reports system reviewed and no additional complaints, except as docu Cardiovascular Denies chest pain and Denies dyspnea Respiratory Denies hemoptysis and Denies dyspnea Gastrointestinal Denies abdominal pain, Denies nausea, Denies vomiting and Reports other (Coffee- ground material coming from his G-tube site.) Genitourinary Denies hematuria and Denies flank pain Musculoskeletal Denies back pain and Reports other (History of CVA affecting his left side.) Integumentary/Breasts Reports system reviewed and no additional complaints, except as docu Neurologic Reports other (Review of's CVA affecting his left side.) [facility] Social History Social History Substance History: Past History Second Hand Smoke Exposure: No Smoking Status: Former smoker Tobacco Type: Cigarettes How Often Do You Have a Drink Containing Alcohol: Never Recent Travel in [facility] within the Last 8 Weeks: No Recent Out of Country Travel within the Last 8 Weeks: No Immunization History Tetanus Immunization: Unsure Hx Influenza Vaccine This Season: No Exam Narrative Exam Narrative: GENERAL: Well-developed well-nourished male who was juana in the left lateral decubitus position. Patient was in no acute respiratory distress. SKIN: Focused skin assessment warm/dry. HEAD: Atraumatic. Normocephalic. EYES: No scleral icterus. No injection or drainage. ENT: No nasal bleeding or discharge. Mucous membranes pink and moist. NECK: Trachea midline. No JVD. Supple. CARDIOVASCULAR: Regular rate and rhythm. No murmur appreciated. RESPIRATORY: No accessory muscle use. Clear to auscultation. Breath sounds equal bilaterally. GASTROINTESTINAL: Abdomen soft, non-tender, nondistended. Hepatic and splenic margins not palpable. RECTAL EXAM: No masses or tenderness, stool is brown. Trace heme positive on Hemoccult testing. MUSCULOSKELETAL: No obvious deformities. No clubbing. No cyanosis. No edema. The patient has little residual left-sided weakness and mild contractures from previous CVA. NEUROLOGICAL: Awake and alert. Slight right-sided facial droop. Patient has weakness in his left upper and left upper extremities from secondary to his previous CVA. PSYCHIATRIC: Appropriate mood and affect; insight and judgment normal. Course Initial Documented Vital Signs Temperature 98.2 F 07/11/18 22:27 Pulse Rate 112 H 07/11/18 22:27 Respiratory Rate 20 07/11/18 22:27 Blood Pressure 136/60 07/11/18 22:27 Pulse Oximetry 97 07/11/18 22:27 Last Documented Vital Signs Temperature 98.2 F 07/11/18 22:27 Pulse Rate 112 H 07/11/18 22:27 Respiratory Rate 20 07/11/18 22:27 Blood Pressure 136/60 07/11/18 22:27 Pulse Oximetry 95 07/11/18 22:58 Medical Decision Making MDM Narrative Medical decision making narrative: 62-year-old male with history of CVA, hypertension, diabetes, presents here with reported coffee-ground material at his G-tube site. Patient does have heme positive stools. Patient's white count is 21,000. Urinalysis shows evidence of UTI. Patient had persistent tachycardia with a heart rate over 110. He meets sepsis criteria. He has been started on Rocephin, 1 g IV 1 dose. Blood cultures and lactic acid have been ordered. Case was discussed with Dr. Kim who will admit the patient under their service. Medical Screen Exam Complete: Yes Emergency Medical Condition: Yes Differential Diagnosis Differential Diagnosis: Gastritis versus upper GI bleed versus lower GI bleed versus metabolic derangement Lab Data Result diagrams: 07/11/18 23:00 07/11/18 23:00 Lab Results 07/11/18 07/11/18 07/11/18 Range/Units 23:00 23:00 23:00 WBC 21.1 H (4.0-11.0) th/mm3 RBC 3.76 L (4.50-5.90) mil/mm3 Hgb 10.3 L (13.0-17.0) gm/dL Hct 33.0 L (39.0-51.0) % MCV 87.8 (80.0-100.0) fL MCH 27.5 (27.0-34.0) pg MCHC 31.3 L (32.0-36.0) % RDW 17.2 (11.6-17.2) % Plt Count 523 H (150-450) th/mm3 MPV 9.3 (7.0-11.0) fL Neut % (Auto) 82.7 H (16.0-70.0) % Lymph % (Auto) 10.1 (9.0-44.0) % [place] % (Auto) 6.1 (0.0-8.0) % Eos % (Auto) 0.4 (0.0-4.0) % Baso % (Auto) 0.7 (0.0-2.0) % Neut # (Auto) 17.4 H (1.8-7.7) th/mm3 Lymph # (Auto) 2.1 (1.0-4.8) th/mm3 [place] # (Auto) 1.3 H (0.0-0.9) th/mm3 Eos # (Auto) 0.1 (0.0-0.4) th/mm3 Baso # (Auto) 0.1 (0.0-0.2) th/mm3 WBC Differential . Differential Comment Auto diff final PT 10.1 (9.8-11.6) sec INR 1.0 Ratio APTT 24.8 (24.3-30.1) sec Sodium 143 (136-145) meq/L Potassium 4.6 (3.5-5.1) meq/L Chloride 102 (98-107) meq/L Carbon Dioxide 32.4 H (21.0-32.0) meq/L Anion Gap 9 (5-15) meq/L BUN 61 H (7-18) mg/dL Creatinine 1.20 (0.60-1.30) mg/dL Estimated GFR 75 L (>89) mL/min Random Glucose 222 H (74-106) mg/dL Calcium 9.3 (8.5-10.1) mg/dL Total Bilirubin 0.4 (0.2-1.0) mg/dL AST 16 (15-37) U/L ALT 18 (12-78) U/L Alkaline Phosphatase 128 H (45-117) U/L Total Protein 7.6 D (6.4-8.2) g/dL Albumin 2.9 L (3.4-5.0) g/dL Urine Color (Yellw/Straw) Urine Clarity (Clear) Urine pH (5.0-8.5) Ur Specific [place] (1.002-1.035) Urine Protein (Neg-Trace) mg/dL Urine Glucose (UA) (Negative) mg/dL Urine Ketones (Negative) mg/dL Urine Occult Blood (Negative) Urine Nitrate (Negative) Urine Bilirubin (Negative) Urine Urobilinogen (Less than 2) mg/dL Ur Leukocyte Esterase (Negative) Urine RBC (0-3) /hpf Urine WBC (0-5) /hpf Urine WBC Clumps (None) Ur Squamous Epith Cells (0-5) /hpf Urine Bacteria (None) /hpf Hyaline Casts (0-3) /lpf Urine Mucus (Occasional) /lpf Micro UA Comment Ur Microscopic Review Urine Culture Comments Blood Type Blood Type Recheck Antibody Screen 07/11/18 07/11/18 Range/Units 23:00 23:59 WBC (4.0-11.0) th/mm3 RBC (4.50-5.90) mil/mm3 Hgb (13.0-17.0) gm/dL Hct (39.0-51.0) % MCV (80.0-100.0) fL MCH (27.0-34.0) pg MCHC (32.0-36.0) % RDW (11.6-17.2) % Plt Count (150-450) th/mm3 MPV (7.0-11.0) fL Neut % (Auto) (16.0-70.0) % Lymph % (Auto) (9.0-44.0) % [place] % (Auto) (0.0-8.0) % Eos % (Auto) (0.0-4.0) % Baso % (Auto) (0.0-2.0) % Neut # (Auto) (1.8-7.7) th/mm3 Lymph # (Auto) (1.0-4.8) th/mm3 [place] # (Auto) (0.0-0.9) th/mm3 Eos # (Auto) (0.0-0.4) th/mm3 Baso # (Auto) (0.0-0.2) th/mm3 WBC Differential Differential Comment PT (9.8-11.6) sec INR Ratio APTT (24.3-30.1) sec Sodium (136-145) meq/L Potassium (3.5-5.1) meq/L Chloride (98-107) meq/L Carbon Dioxide (21.0-32.0) meq/L Anion Gap (5-15) meq/L BUN (7-18) mg/dL Creatinine (0.60-1.30) mg/dL Estimated GFR (>89) mL/min Random Glucose (74-106) mg/dL Calcium (8.5-10.1) mg/dL Total Bilirubin (0.2-1.0) mg/dL AST (15-37) U/L ALT (12-78) U/L Alkaline Phosphatase (45-117) U/L Total Protein (6.4-8.2) g/dL Albumin (3.4-5.0) g/dL Urine Color Yellow (Yellw/Straw) Urine Clarity Cloudy H (Clear) Urine pH 6.0 (5.0-8.5) Ur Specific [place] 1.017 (1.002-1.035) Urine Protein 30 H (Neg-Trace) mg/dL Urine Glucose (UA) Negative (Negative) mg/dL Urine Ketones Negative (Negative) mg/dL Urine Occult Blood Negative (Negative) Urine Nitrate Negative (Negative) Urine Bilirubin Negative (Negative) Urine Urobilinogen 2.0 H (Less than 2) mg/dL Ur Leukocyte Esterase Large H (Negative) Urine RBC 3 (0-3) /hpf Urine WBC (0-5) /hpf Urine WBC Clumps Moderate H (None) Ur Squamous Epith Cells <1 (0-5) /hpf Urine Bacteria Many H (None) /hpf Hyaline Casts 3 (0-3) /lpf Urine Mucus Few H (Occasional) /lpf Micro UA Comment Cath-culture ind Ur Microscopic Review Not Reportable Urine Culture Comments Cath-cult indicated Blood Type O Positive Blood Type Recheck Not needed Antibody Screen Negative Imaging Data Radiologist's impression: Chest X-Ray 07/11/18 23:53 CONCLUSION: 1. No acute abnormality or significant interval change. Discharge Plan Discharge Disposition Patient Disposition: 30 Still Patient Discharge Details Diagnosis: Sepsis, Diabetes mellitus, Hypertension, Urinary tract infection, Leukocytosis , Tachycardia Physicians Team ED Provider: Casey Bah Primary Care Provider: Jeff Vieira Rxs /Orders / Referrals /Forms Prescriptions: No Action insulin aspart U-100 [Novolog U-100 Insulin aspart] 100 unit/mL Solution Sub-Q ACHS Qty: 1 RF: 0 cyclobenzaprine 10 mg Tablet 10 mg Feeding Tube TID PRN (Reason: Muscle Spasm) RF: 0 lisinopril 20 mg Tablet 20 mg Feeding Tube DAILY RF: 0 amlodipine 10 mg Tablet 10 mg Feeding Tube DAILY RF: 0 ferrous sulfate 325 mg (65 mg iron) Tablet 325 mg Feeding Tube DAILY RF: 0 metformin 1,000 mg Tablet 1,000 mg Feeding Tube BID RF: 0 bisacodyl [Bisac-Evac] 10 mg Suppository 10 mg AL DAILY PRN (Reason: Severe Consitipation) RF: 0 insulin detemir U-100 [Levemir U-100 Insulin] 100 unit/mL Solution 10 unit Sub-Q BID RF: 0 sennosides [Senna Lax] 8.6 mg tablet 2 tab Feeding Tube Q12H PRN (Reason: Moderate Constipation) RF: 0 atorvastatin [Lipitor] 10 mg tablet 10 mg Feeding Tube HS RF: 0 magnesium hydroxide [Milk of Magnesia] 400 mg/5 mL Suspension 30 ml Feeding Tube DAILY PRN (Reason: Constipation) RF: 0 magnesium citrate Solution 296 ml Feeding Tube DAILY PRN (Reason: Constipation) RF: 0 aspirin 325 mg Tablet 325 mg G-Tube DAILY RF: 0 tamsulosin 0.4 mg Capsule,Extended Release 24hr 0.4 mg PO DAILY RF: 0 metoprolol tartrate 25 mg Tablet 12.5 mg PO BID Qty: 0 RF: 0 Status ED Status: With Doctor
[2018-07-11 23:41] LABS: Albumin 2.9 g/dL (3.4-5.0); Anion Gap 9 meq/L (5-15); Aspartate Aminotransferase 16 U/L (15-37); Blood Urea Nitrogen 61 mg/dL (7-18); Calcium 9.3 mg/dL (8.5-10.1); Carbon Dioxide 32.4 meq/L (21.0-32.0); Chloride 102 meq/L (98-107); Glomerular Filtration Rate 75 mL/min (>89); Glucose,Random 222 mg/dL (74-106); Potassium 4.6 meq/L (3.5-5.1); Sodium 143 meq/L (136-145)
[2018-07-11 23:42] LABS: Alanine Aminotransferase 18 U/L (12-78)
[2018-07-11 23:45] LABS: Alkaline Phosphatase 128 U/L (45-117); Total Protein 7.6 g/dL (6.4-8.2)
--- NOTE | 2018-07-12 00:34 | XR ---
EXAM DATE: 07/12/2018 12:18 AM EDT AGE/SEX: 62 years / Male INDICATIONS: Shortness of breath. CLINICAL DATA: This is the patient's initial encounter. Patient reports that signs and symptoms have been present for 1 day and indicates a pain score of Nonresponsive. MEDICAL/SURGICAL HISTORY: Hypertension. Diabetes mellitus type II. Cerebrovascular disease. . Peg tube. COMPARISON: C, CHEST 1V SINGLE AP, 07/03/2018. . FINDINGS: No significant new focal pleural or parenchymal opacities. The cardiomediastinal contours are unremar kable. Osseous structures are intact. CONCLUSION: 1. No acute abnormality or significant interval change. Electronically signed by: Berry Gillis MD 07/12/2018 12:33 AM EDT
[2018-07-12 00:48] LABS: Bacteria,Urine Many /hpf; Bilirubin,Urine Negative (Negative); Clarity,Urine Cloudy (Clear); Color,Urine Yellow (Yellw/Straw); Glucose,Urine (UA) Negative (Negative); Hyaline Casts,Urine 3 /lpf (0-3); Leukocyte Esterase,Urine Large (Negative); Mucus,Urine Few /lpf (Occasional); Nitrite,Urine Negative (Negative); Specific Gravity,Urine 1.017 (1.002-1.035); Squamous Epithelial Cell,Urine <1 /hpf (0-5)
[2018-07-12] MEDS ORDERED: Dextrose 50% in Water 50 ML Vial IV.PUSH PRN (01:43)
[2018-07-12] MEDS ORDERED: Bisacodyl 10 MG Supp RECTAL PRN (01:44)
[2018-07-12] MEDS: Sod Chloride 0.9% Inj 1,000 ML IV.CONT SCH ×4 (03:04→22:02)
--- NOTE | 2018-07-12 03:56 | P.HPIM ---
History of Present Illness Primary Care Physician: Jeff Vieira History of Present Illness: This is a 62-year-old male with a PMH of HTN, CVA w/ Left Hemiparesis, DM, Urinary Retention and h/o GI Bleed who was sent to the ER from SNF for coffee- ground material in PEG Tube. Previous h/o CVA 07/01/18 w/ residual left-sided hemiparesis, s/p PEG Tube placement at that time, re-admitted 07/05-07/08/18 for coffee-ground material noted in PEG Tube, Hgb stable throughout hospitalization , s/p eval by GI w/ readjustment of PEG tube, ASA resumed at the time of d/c. Returns now w/ recurrent episode of GI Bleed. On arrival, BP 136/60, HR 112, O2 sat 97% on RA, Afebrile. WBC 21.1. INR 1.0. Chemistry essentially unremarkable. Lactic Acid 1.1. UA positive for UTI. CXR with no acute findings. S/p Protonix and Rocephin in ER. Pt w/o complaints at this time - Diagnosis (1) Sepsis (2) UTI (urinary tract infection) (3) GI bleed (4) CVA (cerebral vascular accident) (5) DM (diabetes mellitus) Inpatient Certification: I certify that the inpatient services were ordered in accordance with Medicare regulations governing the order. This includes certification that hospital inpatient services are reasonable and necessary and in the case of services not specified as inpatient-only under 42 CFR 419.22(n), that they are appropriately provided as inpatient services in accordance to with the 2-midnight benchmark under 43 CFR 412.3(e) Estimated Total Length of Stay (Days): 2 Plans for Post Hospital Care: Not yet determined Review of Systems PAST FAMILY HISTORY: Reviewed. No h/o DM or CAD All other systems reviewed negative except as stated in HPI PMFSH - History History Provided By: Patient - Medical History Medical History: Medical History (Last Reviewed 07/05/18 @ 09:27 by Anastacia Montenegro) Stroke (Acute) Hyperlipemia (Acute) Anemia (Acute) HTN (hypertension) (Acute) Diabetes mellitus (Acute) - Surgical History Surgical History: Surgical History (Last Reviewed 07/08/18 @ 14:46 by Cecile Campbell) No significant past surgical history - Family History Family History: Family History (Last Reviewed 07/08/18 @ 14:46 by Cecile Campbell) Mother CVA (cerebral vascular accident) HTN (hypertension) - Tobacco History Second Hand Smoke Exposure: No Tobacco Use In Past 30 Days: No Smoking Status: Former smoker Tobacco Type: Cigarettes - Alcohol History How Often Do You Have a Drink Containing Alcohol: Never - Substance Use History Substance History: Past History - Travel History Recent Travel in the [place] Within the Last 8 Weeks: No Recent Travel Out of the Country Within the Last 8 Weeks: No - Immunization History Tetanus Immunization: Unsure Hx Influenza Vaccine This Season: No Medications and Allergies Active Medications: Active Medications Acetaminophen (Tylenol) 650 mg PO Q4H PRN PRN Reason: Temp > 100.4 Al Hydroxide/Mg Hydroxide (Milk Of Magnesia Liq) 30 ml PO Q12H PRN PRN Reason: Mild Constipation Bisacodyl (Dulcolax Supp) 10 mg RECTAL DAILY PRN PRN Reason: SEVERE CONSITIPATION Dextrose (D50w Vial) 50 ml IV.PUSH UNSCH PRN PRN Reason: PER HYPOGLYCEMIA PROTOCOL Glucagon (Glucagon Inj) 1 mg OTHER PRN PRN PRN Reason: for Hypoglycemia Protocol Ceftriaxone Sodium 1,000 mg/ (Sodium Chloride) 100 mls @ 200 mls/hr IV.SIG Q24H JADA Sodium Chloride (Ns Inj) 1,000 mls @ 100 mls/hr IV.CONT .Q10H JADA Last Admin: 07/12/18 03:04 Dose: 100 mls/hr Insulin Aspart (Novolog Insulin Correctional Sugar Inj) 0 unit SQ ACHS JADA; Protocol Lactulose (Lactulose Liq) 30 ml PO DAILY PRN PRN Reason: SEVERE CONSITIPATION Ondansetron HCl (Zofran Inj) 4 mg IV.PUSH Q6H PRN PRN Reason: NAUSEA OR VOMITING Pantoprazole Sodium (Protonix Inj) 40 mg IV.PUSH Q12H JADA Senna/Docusate Sodium (Claudia-Colace) 1 tab PO BID JADA Sennosides (Senokot) 17.2 mg PO Q12H PRN PRN Reason: Moderate Constipation Sodium Chloride (Ns Flush) 2 ml IV.FLUSH PRN PRN PRN Reason: FLUSH AFTER USING IV ACCESS Allergies Allergy/AdvReac Type Severity Reaction Status Date / Time No Known Allergies Allergy Verified 07/11/18 22:34 Home Medications Medication Instructions Recorded Confirmed Type amlodipine 10 mg FEEDING TUBE DAILY 06/27/18 07/11/18 History cyclobenzaprine 10 mg FEEDING TUBE TID PRN 06/27/18 07/11/18 History ferrous sulfate 325 mg FEEDING TUBE DAILY 06/27/18 07/11/18 History lisinopril 20 mg FEEDING TUBE DAILY 06/27/18 07/11/18 History metformin 1,000 mg FEEDING TUBE BID 06/27/18 07/11/18 History atorvastatin [Lipitor] 10 mg FEEDING TUBE HS 07/03/18 07/11/18 History magnesium citrate 296 ml FEEDING TUBE DAILY PRN 07/03/18 07/11/18 History magnesium hydroxide [Milk of 30 ml FEEDING TUBE DAILY PRN 07/03/18 07/11/18 History Magnesia] sennosides [Senna Lax] 2 tab FEEDING TUBE Q12H PRN 07/03/18 07/11/18 History Exam Vital signs: Vital Signs 07/11/18 22:27 07/11/18 22:56 07/11/18 22:58 Temperature 98.2 F Pulse Rate 112 H Respiratory Rate 20 Blood Pressure 136/60 Pulse Oximetry 97 95 95 07/12/18 01:27 Temperature Pulse Rate 110 H Respiratory Rate 14 Blood Pressure 131/72 Pulse Oximetry 95 Intake & Output 07/11/18 07/11/18 07/12/18 06:59 18:59 06:59 Intake Total 100 / 100 Balance 100 / 100 Intake: IV 100 / 100 Rocephin Inj 1,000 MG In NS Inj 100 / 100 100 ML @ 200 mls/hr IV.SIG ONCE ONE Rx#:[id number] Narrative: PE: GENERAL: Thin, chronically ill-appearing middle-aged black male in no acute distress, appears much older than stated age. SKIN: Focused skin assessment warm and dry. HEENT: PERRLA, EOMI. No scleral icterus or conjunctival pallor. No lid lag or facial droop. CARDIOVASCULAR: Regular rate and rhythm. No obvious murmurs to auscultation. No chest tenderness to palpation. RESPIRATORY: No obvious rhonchi or wheezing. Clear to auscultation. Breath sounds equal bilaterally. GASTROINTESTINAL: Abdomen soft, non-tender, nondistended. BS normal. PEG tube in place, intact, no surrounding erythema MUSCULOSKELETAL: Extremities without clubbing, cyanosis, or edema. No obvious deformities. NEUROLOGICAL: Awake, alert and oriented x4. No new focal neurologic deficits, left hemiparesis and facial droop at baseline. PSYCHIATRIC: Appropriate mood and affect. Insight and judgment normal. Results - Labs CBC & Chem 7: 07/11/18 23:00 07/11/18 23:00 Labs: Short CBC 07/11/18 Range/Units 23:00 WBC 21.1 H (4.0-11.0) th/mm3 Hgb 10.3 L (13.0-17.0) gm/dL Hct 33.0 L (39.0-51.0) % Plt Count 523 H (150-450) th/mm3 BMP 07/11/18 23:00 Sodium 143 Potassium 4.6 Chloride 102 Carbon Dioxide 32.4 H BUN 61 H Creatinine 1.20 Calcium 9.3 Liver Function 07/11/18 Range/Units 23:00 Total Bilirubin 0.4 (0.2-1.0) mg/dL AST 16 (15-37) U/L ALT 18 (12-78) U/L Alkaline Phosphatase 128 H (45-117) U/L Albumin 2.9 L (3.4-5.0) g/dL Urine 07/11/18 Range/Units 23:59 Urine Color Yellow (Yellw/Straw) Urine Clarity Cloudy H (Clear) Urine pH 6.0 (5.0-8.5) Ur Specific [place] 1.017 (1.002-1.035) Urine Protein 30 H (Neg-Trace) mg/dL Urine Glucose (UA) Negative (Negative) mg/dL - Imaging Impressions Chest X-Ray 07/11/18 23:53 CONCLUSION: 1. No acute abnormality or significant interval change. Caprini VTE Risk Assessment Caprini VTE Risk Assessment: No/Low Risk (score <= 1) VTE Pharmacological Exception Reason: Active bleeding Caprini Risk Assessment Model: Point Value = 1 Point Value = 2 Point Value = 3 Point Value = 5 Age 41-60 Minor surgery BMI > 25 kg/m2 Swollen legs Varicose veins or History of unexplained or recurrent spontaneous Oral contraceptives or hormone replacement Sepsis (< 1 month) Serious lung disease, including pneumonia (< 1 month) Abnormal pulmonary function Acute myocardial infarction Congestive heart failure (< 1 month) History of inflammatory bowel disease Medical patient at bed rest Age 61-74 Arthroscopic surgery Major open surgery (> 45 min) Laparoscopic surgery (> 45 min) Malignancy Confined to bed (> 72 hours) Immobilizing plaster cast Central venous access Age >= 75 History of VTE Family history of VTE Factor V Leiden Prothrombin [id number] Lupus anticoagulant Anticardiolipin antibodies Elevated serum homocysteine Heparin-induced thrombocytopenia Other congenital or acquired thrombophilia Stroke (< 1 month) Elective arthroplasty Hip, pelvis, or leg fracture Acute spinal cord injury (< 1 month) Prophylaxis Regimen: Total Risk Factor Score Risk Level Prophylaxis Regimen 0-1 Low Early ambulation 2 Moderate Order ONE of the following: *Sequential Compression Device (SCD) *Heparin 5000 units SQ BID 3-4 Higher Order ONE of the following medications: *Heparin 5000 units SQ TID *Enoxaparin/Lovenox 40 mg SQ daily (WT < 150 kg, CrCl > 30 mL/min) *Enoxaparin/Lovenox 30 mg SQ daily (WT < 150 kg, CrCl > 10-29 mL/min) *Enoxaparin/Lovenox 30 mg SQ BID (WT < 150 kg, CrCl > 30 mL/min) AND/OR *Sequential Compression Device (SCD) 5 or more Highest Order ONE of the following medications: *Heparin 5000 units SQ TID (Preferred with Epidurals) *Enoxaparin/Lovenox 40 mg SQ daily (WT < 150 kg, CrCl > 30 mL/min) *Enoxaparin/Lovenox 30 mg SQ daily (WT < 150 kg, CrCl > 10-29 mL/min) *Enoxaparin/Lovenox 30 mg SQ BID (WT < 150 kg, CrCl > 30 mL/min) AND *Sequential Compression Device (SCD) Assessment and Plan - Assessment (1) Sepsis Code(s): A41.9 - Sepsis, unspecified organism Status: Acute (2) UTI (urinary tract infection) Code(s): N39.0 - Urinary tract infection, site not specified Status: Acute (3) GI bleed Code(s): K92.2 - Gastrointestinal hemorrhage, unspecified Status: Acute (4) CVA (cerebral vascular accident) Code(s): I63.9 - Cerebral infarction, unspecified Status: Acute (5) DM (diabetes mellitus) Code(s): E11.9 - Type 2 diabetes mellitus without complications Status: Acute - Plan A/P: 1. Sepsis: HR 112, WBC 21, Source-UTI, s/p Blood Cultures, Urine Cultures, IV Rocephin, continue IV Abx, IVF for hydration, follow up cultures. 2. UTI: U/a w/ UTI, continue w/ IV Rocephin, monitor I/O, follow up cultures, IVF for hydration. H/o Urinary retention, avoid Yadav if possible. 3. GI Bleed: Coffee ground material noted in PEG tube, recent admit 07/05- for same, s/p eval by GI w/ readjustment of PEG, hold ASA, Hgb stable. Repeat Hgb/Hct in am, NPO, Consult GI for further eval/intervention, Protonix. 4. CVA: h/o CVA w/ Left Hemiparesis, at baseline. PT for eval/tx 5. DM: Sliding scale w/ Accu-Cheks 6. DVT Prophylaxis: SCD/teds. 7. Social work for DC planning as needed. 8. Case discussed at length with the ER physician, lab/record/imaging reviewed by me.
[2018-07-12] MEDS: Insulin NovoLOG Aspart Correctional Sugar Inj SQ SCH ×4 (08:41→20:29)
[2018-07-12] MEDS: Senna/Docusate Sodium 8.6/50 MG Tablet PO SCH ×2 (08:42→20:14)
[2018-07-12] MEDS: Pantoprazole Inj 40 MG Vial IV.PUSH SCH ×2 (08:42→20:14)
--- NOTE | 2018-07-12 09:55 | P.CONGI ---
History of Present Illness Consult date: 07/12/18 Chief complaint: sepsis, UTI, leukocytosis, heme positive stool History of Present Illness: This is a 62-year-old male with a PMH of HTN, CVA w/ Left Hemiparesis, DM, Urinary Retention and h/o GI Bleed who was sent to the ER from [facility] for coffee- ground material in PEG Tube. Patient is s/p PEG Tube placement on 06/26/18. Was seen by Dr. Mcgraw on 07/05-07/08/18 for coffee-ground material noted in PEG Tube. No EGD done at that time, readjustment of PEG tube was made, there was no signs of active bleed, and pt was discharged. hgb on arrival 10.2 which seem to be base line for pt, no decline in repeat labs. No signs of active bleed. Nurse checked for residual with no signs of coffee ground material. Pt himself denies abd pain, nausea or vomiting. No reported melena or hematochezia. <Cole Yoo - Last Filed: 07/12/18 09:43> Review of Systems All other systems reviewed negative except as stated in HPI <Cole Yoo - Last Filed: 07/12/18 09:43> PMFSH - History History Provided By: Patient, Medical Record - Medical History Medical History: Medical History (Last Reviewed 07/05/18 @ 09:27 by Anastacia Montenegro) Stroke (Acute) Hyperlipemia (Acute) Anemia (Acute) HTN (hypertension) (Acute) Diabetes mellitus (Acute) - Surgical History Surgical History: Surgical History (Last Reviewed 07/08/18 @ 14:46 by Cecile Campbell) No significant past surgical history - Family History Family History: Family History (Last Reviewed 07/08/18 @ 14:46 by Cecile Campbell) Mother CVA (cerebral vascular accident) HTN (hypertension) - Tobacco History Second Hand Smoke Exposure: No Tobacco Use In Past 30 Days: No Smoking Status: Former smoker Tobacco Type: Cigarettes - Alcohol History How Often Do You Have a Drink Containing Alcohol: Never - Substance Use History Substance History: No History of Abuse - Travel History Recent Travel in the [place] Within the Last 8 Weeks: No Recent Travel Out of the Country Within the Last 8 Weeks: No - Immunization History Tetanus Immunization: Unable to Assess Hx Influenza Vaccine This Season: No <Cole Yoo - Last Filed: 07/12/18 09:43> - Medical History Medical History: Medical History (Last Reviewed 07/05/18 @ 09:27 by Anastacia Montenegro) Stroke (Acute) Hyperlipemia (Acute) Anemia (Acute) HTN (hypertension) (Acute) Diabetes mellitus (Acute) - Surgical History Surgical History: Surgical History (Last Reviewed 07/08/18 @ 14:46 by Cecile Campbell) No significant past surgical history - Family History Family History: Family History (Last Reviewed 07/08/18 @ 14:46 by Cecile Campbell) Mother CVA (cerebral vascular accident) HTN (hypertension) <Annamaria Gaming - Last Filed: 07/12/18 17:13> Medications and Allergies Active Medications: Active Medications Acetaminophen (Tylenol) 650 mg PO Q4H PRN PRN Reason: Temp > 100.4 Al Hydroxide/Mg Hydroxide (Milk Of Magnesia Liq) 30 ml PO Q12H PRN PRN Reason: Mild Constipation Bisacodyl (Dulcolax Supp) 10 mg RECTAL DAILY PRN PRN Reason: SEVERE CONSITIPATION Dextrose (D50w Vial) 50 ml IV.PUSH UNSCH PRN PRN Reason: PER HYPOGLYCEMIA PROTOCOL Glucagon (Glucagon Inj) 1 mg OTHER PRN PRN PRN Reason: for Hypoglycemia Protocol Ceftriaxone Sodium 1,000 mg/ (Sodium Chloride) 100 mls @ 200 mls/hr IV.SIG Q24H JADA Sodium Chloride (Ns Inj) 1,000 mls @ 100 mls/hr IV.CONT .Q10H [facility] Last Admin: 07/12/18 03:04 Dose: 100 mls/hr Insulin Aspart (Novolog Insulin Correctional Sugar Inj) 0 unit SQ ACHS JADA; Protocol Last Admin: 07/12/18 08:41 Dose: Not Given Lactulose (Lactulose Liq) 30 ml PO DAILY PRN PRN Reason: SEVERE CONSITIPATION Ondansetron HCl (Zofran Inj) 4 mg IV.PUSH Q6H PRN PRN Reason: NAUSEA OR VOMITING Pantoprazole Sodium (Protonix Inj) 40 mg IV.PUSH Q12H [facility] Last Admin: 07/12/18 08:42 Dose: 40 mg Senna/Docusate Sodium (Claudia-Colace) 1 tab PO BID JADA Last Admin: 07/12/18 08:42 Dose: Not Given Sennosides (Senokot) 17.2 mg PO Q12H PRN PRN Reason: Moderate Constipation Sodium Chloride (Ns Flush) 2 ml IV.FLUSH PRN PRN PRN Reason: FLUSH AFTER USING IV ACCESS <Cole Yoo - Last Filed: 07/12/18 09:43> Active Medications: Active Medications Acetaminophen (Tylenol) 650 mg PO Q4H PRN PRN Reason: Temp > 100.4 Last Admin: 07/12/18 11:27 Dose: 650 mg Al Hydroxide/Mg Hydroxide (Milk Of Magnesia Liq) 30 ml PO Q12H PRN PRN Reason: Mild Constipation Bisacodyl (Dulcolax Supp) 10 mg RECTAL DAILY PRN PRN Reason: SEVERE CONSITIPATION Dextrose (D50w Vial) 50 ml IV.PUSH UNSCH PRN PRN Reason: PER HYPOGLYCEMIA PROTOCOL Glucagon (Glucagon Inj) 1 mg OTHER PRN PRN PRN Reason: for Hypoglycemia Protocol Ceftriaxone Sodium 1,000 mg/ (Sodium Chloride) 100 mls @ 200 mls/hr IV.SIG Q24H [facility] Sodium Chloride (Ns Inj) 1,000 mls @ 100 mls/hr IV.CONT .Q10H [facility] Last Admin: 07/12/18 11:27 Dose: 100 mls/hr Insulin Aspart (Novolog Insulin Correctional Sugar Inj) 0 unit SQ ACHS [facility]; Protocol Last Admin: 07/12/18 11:34 Dose: Not Given Lactulose (Lactulose Liq) 30 ml PO DAILY PRN PRN Reason: SEVERE CONSITIPATION Ondansetron HCl (Zofran Inj) 4 mg IV.PUSH Q6H PRN PRN Reason: NAUSEA OR VOMITING Pantoprazole Sodium (Protonix Inj) 40 mg IV.PUSH Q12H [facility] Last Admin: 07/12/18 08:42 Dose: 40 mg Senna/Docusate Sodium (Claudia-Colace) 1 tab PO BID [facility] Last Admin: 07/12/18 08:42 Dose: Not Given Sennosides (Senokot) 17.2 mg PO Q12H PRN PRN Reason: Moderate Constipation Sodium Chloride (Ns Flush) 2 ml IV.FLUSH PRN PRN PRN Reason: FLUSH AFTER USING IV ACCESS <Annamaria Gaming - Last Filed: 07/12/18 17:13> Allergies Allergy/AdvReac Type Severity Reaction Status Date / Time No Known Allergies Allergy Verified 07/11/18 22:34 Home Medications Medication Instructions Recorded Confirmed Type amlodipine 10 mg FEEDING TUBE DAILY 06/27/18 07/11/18 History cyclobenzaprine 10 mg FEEDING TUBE TID PRN 06/27/18 07/11/18 History ferrous sulfate 325 mg FEEDING TUBE DAILY 06/27/18 07/11/18 History lisinopril 20 mg FEEDING TUBE DAILY 06/27/18 07/11/18 History metformin 1,000 mg FEEDING TUBE BID 06/27/18 07/11/18 History atorvastatin [Lipitor] 10 mg FEEDING TUBE HS 07/03/18 07/11/18 History magnesium citrate 296 ml FEEDING TUBE DAILY PRN 07/03/18 07/11/18 History magnesium hydroxide [Milk of 30 ml FEEDING TUBE DAILY PRN 07/03/18 07/11/18 History Magnesia] sennosides [Senna Lax] 2 tab FEEDING TUBE Q12H PRN 07/03/18 07/11/18 History Exam Vital signs: Vital Signs 07/11/18 22:27 07/11/18 22:56 07/11/18 22:58 Temperature 98.2 F Pulse Rate 112 H Respiratory Rate 20 Blood Pressure 136/60 Pulse Oximetry 97 95 95 07/12/18 01:27 07/12/18 04:00 07/12/18 06:00 Temperature 99.5 F Pulse Rate 110 H 110 H Respiratory Rate 14 18 Blood Pressure 131/72 147/77 H Pulse Oximetry 95 95 94 L Intake & Output 07/11/18 07/12/18 07/12/18 18:59 06:59 18:59 Intake Total 100 / 100 Balance 100 / 100 Intake: IV 100 / 100 Rocephin Inj 1,000 MG In NS Inj 100 / 100 100 ML @ 200 mls/hr IV.SIG ONCE ONE Rx#:[id number] - Constitutional no acute distress - Routine HEENT Exam Head: Present: normocephalic - Routine Respiratory Exam Present: CTA bilaterally - Routine Cardiovascular Exam Present: RRR - Routine Abdominal Exam Present: soft, normoactive bowel sounds. Absent: tenderness, distended Comments: PEG tube - Routine Extremities Exam Absent: edema - Routine Skin Exam Present: intact, dry - Routine Neurological Exam Present: alert <Cole Yoo - Last Filed: 07/12/18 09:43> Vital signs: Vital Signs 07/11/18 22:27 07/11/18 22:56 07/11/18 22:58 Temperature 98.2 F Pulse Rate 112 H Respiratory Rate 20 Blood Pressure 136/60 Pulse Oximetry 97 95 95 07/12/18 01:27 07/12/18 04:00 07/12/18 06:00 Temperature 99.5 F Pulse Rate 110 H 110 H Respiratory Rate 14 18 Blood Pressure 131/72 147/77 H Pulse Oximetry 95 95 94 L 07/12/18 08:00 07/12/18 11:01 07/12/18 12:00 Temperature 97.7 F 97.1 F L Pulse Rate 104 H 104 H Respiratory Rate 18 18 Blood Pressure 133/73 147/72 H Pulse Oximetry 98 98 97 Intake & Output 07/11/18 07/12/18 07/12/18 18:59 06:59 18:59 Intake Total 100 / 100 1000 / 1000 Balance 100 / 100 1000 / 1000 Intake: IV 100 / 100 1000 / 1000 NS Inj 1,000 ML @ 100 mls/hr IV 1000 / 1000 .CONT .Q10H JADA Rx#:[id number] Rocephin Inj 1,000 MG In NS Inj 100 / 100 100 ML @ 200 mls/hr IV.SIG ONCE ONE Rx#:[id number] <Annamaria Gaming - Last Filed: 07/12/18 17:13> Results - Labs CBC & Chem 7: 07/11/18 23:00 07/11/18 23:00 Labs: Laboratory Results - last 24 hr 07/11/18 07/11/18 07/11/18 23:00 23:00 23:00 WBC 21.1 H RBC 3.76 L Hgb 10.3 L Hct 33.0 L MCV 87.8 MCH 27.5 MCHC 31.3 L RDW 17.2 Plt Count 523 H MPV 9.3 Neut % (Auto) 82.7 H Lymph % (Auto) 10.1 [place] % (Auto) 6.1 Eos % (Auto) 0.4 Baso % (Auto) 0.7 Neut # (Auto) 17.4 H Lymph # (Auto) 2.1 [place] # (Auto) 1.3 H Eos # (Auto) 0.1 Baso # (Auto) 0.1 WBC Differential . Differential Comment Auto diff final PT 10.1 INR 1.0 APTT 24.8 Sodium 143 Potassium 4.6 Chloride 102 Carbon Dioxide 32.4 H Anion Gap 9 BUN 61 H Creatinine 1.20 Estimated GFR 75 L POC Glucose Random Glucose 222 H Lactic Acid Calcium 9.3 Total Bilirubin 0.4 AST 16 ALT 18 Alkaline Phosphatase 128 H Total Protein 7.6 D Albumin 2.9 L Urine Color Urine Clarity Urine pH Ur Specific [place] Urine Protein Urine Glucose (UA) Urine Ketones Urine Occult Blood Urine Nitrate Urine Bilirubin Urine Urobilinogen Ur Leukocyte Esterase Urine RBC Urine WBC Urine WBC Clumps Ur Squamous Epith Cells Urine Bacteria Hyaline Casts Urine Mucus Micro UA Comment Ur Microscopic Review Urine Culture Comments Blood Type Blood Type Recheck Antibody Screen 07/11/18 07/11/18 07/12/18 23:00 23:59 01:28 WBC RBC Hgb Hct MCV MCH MCHC RDW Plt Count MPV Neut % (Auto) Lymph % (Auto) [place] % (Auto) Eos % (Auto) Baso % (Auto) Neut # (Auto) Lymph # (Auto) [place] # (Auto) Eos # (Auto) Baso # (Auto) WBC Differential Differential Comment PT INR APTT Sodium Potassium Chloride Carbon Dioxide Anion Gap BUN Creatinine Estimated GFR POC Glucose Random Glucose Lactic Acid 1.1 Calcium Total Bilirubin AST ALT Alkaline Phosphatase Total Protein Albumin Urine Color Yellow Urine Clarity Cloudy H Urine pH 6.0 Ur Specific [place] 1.017 Urine Protein 30 H Urine Glucose (UA) Negative Urine Ketones Negative Urine Occult Blood Negative Urine Nitrate Negative Urine Bilirubin Negative Urine Urobilinogen 2.0 H Ur Leukocyte Esterase Large H Urine RBC 3 Urine WBC Urine WBC Clumps Moderate H Ur Squamous Epith Cells <1 Urine Bacteria Many H Hyaline Casts 3 Urine Mucus Few H Micro UA Comment Cath-culture ind Ur Microscopic Review Not Reportable Urine Culture Comments Cath-cult indicated Blood Type O Positive Blood Type Recheck Not needed Antibody Screen Negative 07/12/18 07:41 WBC RBC Hgb Hct MCV MCH MCHC RDW Plt Count MPV Neut % (Auto) Lymph % (Auto) [place] % (Auto) Eos % (Auto) Baso % (Auto) Neut # (Auto) Lymph # (Auto) [place] # (Auto) Eos # (Auto) Baso # (Auto) WBC Differential Differential Comment PT INR APTT Sodium Potassium Chloride Carbon Dioxide Anion Gap BUN Creatinine Estimated GFR POC Glucose 170 H Random Glucose Lactic Acid Calcium Total Bilirubin AST ALT Alkaline Phosphatase Total Protein Albumin Urine Color Urine Clarity Urine pH Ur Specific [place] Urine Protein Urine Glucose (UA) Urine Ketones Urine Occult Blood Urine Nitrate Urine Bilirubin Urine Urobilinogen Ur Leukocyte Esterase Urine RBC Urine WBC Urine WBC Clumps Ur Squamous Epith Cells Urine Bacteria Hyaline Casts Urine Mucus Micro UA Comment Ur Microscopic Review Urine Culture Comments Blood Type Blood Type Recheck Antibody Screen - Imaging Impressions Chest X-Ray 07/11/18 23:53 CONCLUSION: 1. No acute abnormality or significant interval change. <Cole Yoo - Last Filed: 07/12/18 09:43> - Labs CBC & Chem 7: 07/11/18 23:00 07/11/18 23:00 Labs: Laboratory Results - last 24 hr 07/11/18 07/11/18 07/11/18 23:00 23:00 23:00 WBC 21.1 H RBC 3.76 L Hgb 10.3 L Hct 33.0 L MCV 87.8 MCH 27.5 MCHC 31.3 L RDW 17.2 Plt Count 523 H MPV 9.3 Neut % (Auto) 82.7 H Lymph % (Auto) 10.1 [place] % (Auto) 6.1 Eos % (Auto) 0.4 Baso % (Auto) 0.7 Neut # (Auto) 17.4 H Lymph # (Auto) 2.1 [place] # (Auto) 1.3 H Eos # (Auto) 0.1 Baso # (Auto) 0.1 WBC Differential . Differential Comment Auto diff final PT 10.1 INR 1.0 APTT 24.8 Sodium 143 Potassium 4.6 Chloride 102 Carbon Dioxide 32.4 H Anion Gap 9 BUN 61 H Creatinine 1.20 Estimated GFR 75 L POC Glucose Random Glucose 222 H Lactic Acid Calcium 9.3 Total Bilirubin 0.4 AST 16 ALT 18 Alkaline Phosphatase 128 H Total Protein 7.6 D Albumin 2.9 L Urine Color Urine Clarity Urine pH Ur Specific [place] Urine Protein Urine Glucose (UA) Urine Ketones Urine Occult Blood Urine Nitrate Urine Bilirubin Urine Urobilinogen Ur Leukocyte Esterase Urine RBC Urine WBC Urine WBC Clumps Ur Squamous Epith Cells Urine Bacteria Hyaline Casts Urine Mucus Micro UA Comment Ur Microscopic Review Urine Culture Comments Blood Type Blood Type Recheck Antibody Screen 07/11/18 07/11/18 07/12/18 23:00 23:59 01:28 WBC RBC Hgb Hct MCV MCH MCHC RDW Plt Count MPV Neut % (Auto) Lymph % (Auto) [place] % (Auto) Eos % (Auto) Baso % (Auto) Neut # (Auto) Lymph # (Auto) [place] # (Auto) Eos # (Auto) Baso # (Auto) WBC Differential Differential Comment PT INR APTT Sodium Potassium Chloride Carbon Dioxide Anion Gap BUN Creatinine Estimated GFR POC Glucose Random Glucose Lactic Acid 1.1 Calcium Total Bilirubin AST ALT Alkaline Phosphatase Total Protein Albumin Urine Color Yellow Urine Clarity Cloudy H Urine pH 6.0 Ur Specific [place] 1.017 Urine Protein 30 H Urine Glucose (UA) Negative Urine Ketones Negative Urine Occult Blood Negative Urine Nitrate Negative Urine Bilirubin Negative Urine Urobilinogen 2.0 H Ur Leukocyte Esterase Large H Urine RBC 3 Urine WBC Urine WBC Clumps Moderate H Ur Squamous Epith Cells <1 Urine Bacteria Many H Hyaline Casts 3 Urine Mucus Few H Micro UA Comment Cath-culture ind Ur Microscopic Review Not Reportable Urine Culture Comments Cath-cult indicated Blood Type O Positive Blood Type Recheck Not needed Antibody Screen Negative 07/12/18 07/12/18 07:41 11:31 WBC RBC Hgb Hct MCV MCH MCHC RDW Plt Count MPV Neut % (Auto) Lymph % (Auto) [place] % (Auto) Eos % (Auto) Baso % (Auto) Neut # (Auto) Lymph # (Auto) [place] # (Auto) Eos # (Auto) Baso # (Auto) WBC Differential Differential Comment PT INR APTT Sodium Potassium Chloride Carbon Dioxide Anion Gap BUN Creatinine Estimated GFR POC Glucose 170 H 160 H Random Glucose Lactic Acid Calcium Total Bilirubin AST ALT Alkaline Phosphatase Total Protein Albumin Urine Color Urine Clarity Urine pH Ur Specific [place] Urine Protein Urine Glucose (UA) Urine Ketones Urine Occult Blood Urine Nitrate Urine Bilirubin Urine Urobilinogen Ur Leukocyte Esterase Urine RBC Urine WBC Urine WBC Clumps Ur Squamous Epith Cells Urine Bacteria Hyaline Casts Urine Mucus Micro UA Comment Ur Microscopic Review Urine Culture Comments Blood Type Blood Type Recheck Antibody Screen - Imaging Impressions Chest X-Ray 07/11/18 23:53 CONCLUSION: 1. No acute abnormality or significant interval change. <Annamaria Gaming - Last Filed: 07/12/18 17:13> Assessment and Plan - Plan - Coffee ground material in PEG tube- h/o GI Bleed who was [facility] ER from [facility] for coffee-ground material in PEG Tube. Patient is s/p PEG Tube placement on 06/26/18. Was seen by Dr. Mcgraw on 07/05-07/08/18 for coffee-ground material noted in PEG Tube. No EGD done at that time, readjustment of PEG tube was made, there was no signs of active bleed, and pt was discharged. hgb on arrival 10.2 which seem to be base line for pt, no decline in repeat labs. No signs of active bleed. Nurse checked for residual with no signs of coffee ground material. Pt himself denies abd pain, nausea or vomiting. No reported melena or hematochezia. - UTI- on abx - Leukocytosis- secondary to above - PMH of HTN, CVA w/ Left Hemiparesis, DM, Urinary Retention and Plan: - Resume TF - EGD tomorrow - Consents - NPO mn - Monitor hh - Transfuse as needed - Cont. PPI - Supportive care - Pt seen and examined by Dr. Gaming and myself and this note is written on her behalf. <Cole Yoo - Last Filed: 07/12/18 09:43> - Attending Attestation seen, examined agree with above <Annamaria Gaming - Last Filed: 07/12/18 17:13>
--- NOTE | 2018-07-12 11:23 | P.PNIM ---
Subjective Interval history: Patient complains of some back pain. He states he [facility]ited [facility] but has been doing okay since then. He denies nausea currently. Physical Exam Vital signs: Vital Signs 07/11/18 22:27 07/11/18 22:56 07/11/18 22:58 Temperature 98.2 F Pulse Rate 112 H Respiratory Rate 20 Blood Pressure 136/60 Pulse Oximetry 97 95 95 07/12/18 01:27 07/12/18 04:00 07/12/18 06:00 Temperature 99.5 F Pulse Rate 110 H 110 H Respiratory Rate 14 18 Blood Pressure 131/72 147/77 H Pulse Oximetry 95 95 94 L 07/12/18 08:00 07/12/18 11:01 Temperature 97.7 F Pulse Rate 104 H Respiratory Rate 18 Blood Pressure 133/73 Pulse Oximetry 98 98 Intake & Output 07/11/18 07/12/18 07/12/18 18:59 06:59 18:59 Intake Total 100 / 100 Balance 100 / 100 Intake: IV 100 / 100 Rocephin Inj 1,000 MG In NS Inj 100 / 100 100 ML @ 200 mls/hr IV.SIG ONCE ONE Rx#:[id number] Narrative: GENERAL: Frail and cachectic male, in no apparent distress. CARDIOVASCULAR: Normal rate and regular rhythm without murmurs, gallops, or rubs. RESPIRATORY: Good respiratory efforts. Breath sounds equal and clear to auscultation bilaterally. GASTROINTESTINAL: Abdomen soft, non-tender, non-distended. PEG tube in place. Normal active bowel sounds MUSCULOSKELETAL: Extremities without cyanosis, or edema. NEURO: Alert & Oriented. Left-sided hemiparesis Results - Labs CBC & Chem 7: 07/11/18 23:00 07/11/18 23:00 Laboratory Results - last 24 hr 07/11/18 07/11/18 07/11/18 23:00 23:00 23:00 WBC 21.1 H RBC 3.76 L Hgb 10.3 L Hct 33.0 L MCV 87.8 MCH 27.5 MCHC 31.3 L RDW 17.2 Plt Count 523 H MPV 9.3 Neut % (Auto) 82.7 H Lymph % (Auto) 10.1 [place] % (Auto) 6.1 Eos % (Auto) 0.4 Baso % (Auto) 0.7 Neut # (Auto) 17.4 H Lymph # (Auto) 2.1 [place] # (Auto) 1.3 H Eos # (Auto) 0.1 Baso # (Auto) 0.1 WBC Differential . Differential Comment Auto diff final PT 10.1 INR 1.0 APTT 24.8 Sodium 143 Potassium 4.6 Chloride 102 Carbon Dioxide 32.4 H Anion Gap 9 BUN 61 H Creatinine 1.20 Estimated GFR 75 L POC Glucose Random Glucose 222 H Lactic Acid Calcium 9.3 Total Bilirubin 0.4 AST 16 ALT 18 Alkaline Phosphatase 128 H Total Protein 7.6 D Albumin 2.9 L Urine Color Urine Clarity Urine pH Ur Specific [place] Urine Protein Urine Glucose (UA) Urine Ketones Urine Occult Blood Urine Nitrate Urine Bilirubin Urine Urobilinogen Ur Leukocyte Esterase Urine RBC Urine WBC Urine WBC Clumps Ur Squamous Epith Cells Urine Bacteria Hyaline Casts Urine Mucus Micro UA Comment Ur Microscopic Review Urine Culture Comments Blood Type Blood Type Recheck Antibody Screen 07/11/18 07/11/18 07/12/18 23:00 23:59 01:28 WBC RBC Hgb Hct MCV MCH MCHC RDW Plt Count MPV Neut % (Auto) Lymph % (Auto) [place] % (Auto) Eos % (Auto) Baso % (Auto) Neut # (Auto) Lymph # (Auto) [place] # (Auto) Eos # (Auto) Baso # (Auto) WBC Differential Differential Comment PT INR APTT Sodium Potassium Chloride Carbon Dioxide Anion Gap BUN Creatinine Estimated GFR POC Glucose Random Glucose Lactic Acid 1.1 Calcium Total Bilirubin AST ALT Alkaline Phosphatase Total Protein Albumin Urine Color Yellow Urine Clarity Cloudy H Urine pH 6.0 Ur Specific [place] 1.017 Urine Protein 30 H Urine Glucose (UA) Negative Urine Ketones Negative Urine Occult Blood Negative Urine Nitrate Negative Urine Bilirubin Negative Urine Urobilinogen 2.0 H Ur Leukocyte Esterase Large H Urine RBC 3 Urine WBC Urine WBC Clumps Moderate H Ur Squamous Epith Cells <1 Urine Bacteria Many H Hyaline Casts 3 Urine Mucus Few H Micro UA Comment Cath-culture ind Ur Microscopic Review Not Reportable Urine Culture Comments Cath-cult indicated Blood Type O Positive Blood Type Recheck Not needed Antibody Screen Negative 07/12/18 07:41 WBC RBC Hgb Hct MCV MCH MCHC RDW Plt Count MPV Neut % (Auto) Lymph % (Auto) [place] % (Auto) Eos % (Auto) Baso % (Auto) Neut # (Auto) Lymph # (Auto) [place] # (Auto) Eos # (Auto) Baso # (Auto) WBC Differential Differential Comment PT INR APTT Sodium Potassium Chloride Carbon Dioxide Anion Gap BUN Creatinine Estimated GFR POC Glucose 170 H Random Glucose Lactic Acid Calcium Total Bilirubin AST ALT Alkaline Phosphatase Total Protein Albumin Urine Color Urine Clarity Urine pH Ur Specific [place] Urine Protein Urine Glucose (UA) Urine Ketones Urine Occult Blood Urine Nitrate Urine Bilirubin Urine Urobilinogen Ur Leukocyte Esterase Urine RBC Urine WBC Urine WBC Clumps Ur Squamous Epith Cells Urine Bacteria Hyaline Casts Urine Mucus Micro UA Comment Ur Microscopic Review Urine Culture Comments Blood Type Blood Type Recheck Antibody Screen - Imaging Impressions Chest X-Ray 07/11/18 23:53 CONCLUSION: 1. No acute abnormality or significant interval change. Assessment and Plan - Assessment (1) Sepsis Code(s): A41.9 - Sepsis, unspecified organism Status: Acute (2) UTI (urinary tract infection) Code(s): N39.0 - Urinary tract infection, site not specified Status: Acute (3) GI bleed Code(s): K92.2 - Gastrointestinal hemorrhage, unspecified Status: Acute (4) CVA (cerebral vascular accident) Code(s): I63.9 - Cerebral infarction, unspecified Status: Acute (5) DM (diabetes mellitus) Code(s): E11.9 - Type 2 diabetes mellitus without complications Status: Acute - Plan 62-year-old male with: 1. Sepsis: HR 112, WBC 21, Source-UTI, s/p Blood Cultures, Urine Cultures, IV Rocephin, continue IV Abx, IVF for hydration, follow up cultures. 2. UTI: U/a w/ UTI, continue w/ IV Rocephin, monitor I/O, follow up cultures, IVF for hydration. H/o Urinary retention, avoid Yad[place] if possible. 3. GI Bleed: Coffee ground material noted in PEG tube, recent admit 07/05- for same, s/p eval by GI w/ readjustment of PEG, hold ASA, Hgb stable. -GI following and planning for EGD in a.m. Continue tube feeding. 4. CVA: h/o CVA w/ Left Hemiparesis, at baseline. PT for eval/tx 5. DM: Sliding scale w/ Accu-Cheks 6. DVT Prophylaxis: SCD/teds.
[2018-07-12] MEDS: Acetaminophen 325 MG Tablet PO PRN (11:27)
--- NOTE | 2018-07-12 13:05 | P.DIET ---
Nutritional Evaluation Type of nutrition evaluation: initial Nutrition consult regarding: Tube Feeding Objective - Diagnosis Sepsis, UTI,leukocytosis, heme positive stool - Objective [place] body weight: 73 kg (taken from 07/05 RD note) % IBW: 97 Body Weight Used for Calculations: Actual ( 70kg on 07/05, no more recent wt available) Energy Needs - Lower Range (kCal/kg): 25 Energy Needs - Upper Range (kCal/kg): 30 Lower Limit kCal/kg (kCals): 1,750 Upper Limit kCal/kg (kCals): 2,100 Lower Limit Protein Factor (Grams per Kg): 1.1 Upper Limit Protein Factor (Grams per Kg): 1.3 Lower Protein Needs (Protein): 77 Upper Protein Needs (Protein): 91 Fluid Factor (ml/kg): 30 Estimated Fluid Needs (ml): 2,100 Dietitian Reviewed in Medical Record: Current diet, Curent medications, Intake & Output, Labs, Medical history, Tube feeding Diet Order: NPO Objective Comments: PMH: CVA, HTN, DM, HLD, Anemia Assessment Assessment: Pt at nutritional risk r/t need for a TF for nutritional support. Pt known to me from previous admission 07/05-07/08/18 for possible GI bleed. Per GI consult today, TF can be started, pt to have EGD in AM. TF Glucerna 1.5 with goal rate 50ml/hr will provide 1800kcals, 99gms protein and 911mls free water which is adequate to meet pt's nutritional needs. Will monitor clinical course. Recommendations: TF Glucerna 1.5 with goal rate 50ml/hr Dietitian to Monitor: Lab values, Intake & Output, Tube feeding tolerance, Weight change, Medical course
[2018-07-13] MEDS: Acetaminophen 325 MG Tablet PO PRN ×2 (01:27→23:57)
[2018-07-13] MEDS: Sod Chloride 0.9% Inj 1,000 ML IV.CONT SCH ×4 (06:29→21:45)
[2018-07-13 07:26] LABS: Baso # (Auto) 0.1 th/mm3 (0.0-0.2); Baso % (Auto) 0.6 % (0.0-2.0); Eos # (Auto) 0.2 th/mm3 (0.0-0.4); Eos % (Auto) 1.4 % (0.0-4.0); Hematocrit 26.2 % (39.0-51.0); Hemoglobin 8.4 gm/dL (13.0-17.0); Lymph # (Auto) 2.1 th/mm3 (1.0-4.8); Lymph % (Auto) 16.5 % (9.0-44.0); Mean Corpuscular HGB Conc 32.2 % (32.0-36.0); Mean Corpuscular Hemoglobin 27.7 pg (27.0-34.0); Mean Corpuscular Volume 85.8 fL (80.0-100.0); Mean Platelet Volume 9.2 fL (7.0-11.0); Mono # (Auto) 0.7 th/mm3 (0.0-0.9); Mono % (Auto) 5.7 % (0.0-8.0); Neut # (Auto) 9.8 th/mm3 (1.8-7.7); Neut % (Auto) 75.8 % (16.0-70.0); Platelet Count 426 th/mm3 (150-450); Red Blood Count 3.05 mil/mm3 (4.50-5.90); Red Cell Distribution Width 16.5 % (11.6-17.2); White Blood Count 12.9 th/mm3 (4.0-11.0)
[2018-07-13] MEDS: Insulin NovoLOG Aspart Correctional Sugar Inj SQ SCH ×4 (07:57→21:41)
[2018-07-13 08:03] LABS: Alanine Aminotransferase 13 U/L (12-78); Albumin 2.3 g/dL (3.4-5.0); Alkaline Phosphatase 100 U/L (45-117); Anion Gap 9 meq/L (5-15); Aspartate Aminotransferase 11 U/L (15-37); Blood Urea Nitrogen 31 mg/dL (7-18); Carbon Dioxide 27.5 meq/L (21.0-32.0); Chloride 114 meq/L (98-107); Glomerular Filtration Rate Greater Than 89 mL/min (>89); Glucose,Random 183 mg/dL (74-106); Sodium 150 meq/L (136-145); Total Protein 6.2 g/dL (6.4-8.2)
[2018-07-13] MEDS: Pantoprazole Inj 40 MG Vial IV.PUSH SCH ×2 (08:46→21:42)
--- NOTE | 2018-07-13 11:31 | P.PCN ---
Date of procedure: 07/13/18 Pre-op diagnosis: Coffee-ground emesis, anemia Procedure: PROCEDURE PERFORMED EGD with biopsy PROCEDURE: The procedure, risks and benefits were discussed with Patient/POA and informed consent was obtained. Anesthesia sedated Patient with Diprivan. Patient was placed in the left lateral decubitus position. EGD: The Pentax videoscope was introduced through the oropharynx and advanced to the second portion of the duodenum under direct visualization. Retroflexion was performed in the stomach. FINDINGS: The esophagus there was distal esophageal mucosal erythema with some friability very mild though suggestive of esophagitis this was biopsied no ulcerations no active bleeding The stomach this appeared to be unremarkable and within normal limits PEG tube was noted to be within the stomach The duodenum this was normal ESTIMATED BLOOD LOSS: None SPECIMENS REMOVED: Esophageal biopsy COMPLICATIONS: None IMPRESSION: Mild esophagitis PLAN: Await biopsies Recommend proton pump inhibitor Advance diet Continue with current supportive care and monitor labs Anesthesia: MAC Surgeon: Zoltan Grande Condition: stable Disposition: floor
[2018-07-13] MEDS: Senna/Docusate Sodium 8.6/50 MG Tablet PO SCH ×2 (13:50→21:42)
--- NOTE | 2018-07-13 15:19 | P.PNIM ---
Subjective Interval history: This is a 62-year-old male with a PMH of HTN, CVA w/ Left Hemiparesis, DM, Urinary Retention and h/o GI Bleed who was sent to the ER from SNF for coffee- ground material in PEG Tube. Previous h/o CVA 07/01/18 w/ residual left-sided hemiparesis, s/p PEG Tube placement at that time, re-admitted 07/05-07/08/18 for coffee-ground material noted in PEG Tube, Hgb stable throughout hospitalization , s/p eval by GI w/ readjustment of PEG tube, ASA resumed at the time of d/c. Returns now w/ recurrent episode of GI Bleed. On arrival, BP 136/60, HR 112, O2 sat 97% on RA, Afebrile. WBC 21.1. INR 1.0. Chemistry essentially unremarkable. Lactic Acid 1.1. UA positive for UTI. CXR with no acute findings. S/p Protonix and Rocephin in ER. Pt w/o complaints at this time 07-12 Patient complains of some back pain. He states he vomited at the intermediate facility but has been doing okay since then. He denies nausea currently. 07-13 HAD EGD TODAY SHOWS ESOPHAGITIS ONLY AM LABS RESTART TUBE FEEDS PPI DW RN AND PT AND CM Physical Exam Vital signs: Vital Signs 07/12/18 16:00 07/12/18 20:00 07/13/18 00:00 Temperature 97.9 F 97.7 F 97.6 F Pulse Rate 104 H 83 52 L Respiratory Rate 18 18 18 Blood Pressure 134/71 137/80 136/69 Pulse Oximetry 99 99 100 07/13/18 02:09 07/13/18 04:00 07/13/18 08:00 Temperature 97.9 F 97.9 F Pulse Rate 93 H 97 H Respiratory Rate 18 18 17 Blood Pressure 151/78 H 135/74 Pulse Oximetry 100 98 07/13/18 08:47 07/13/18 12:00 07/13/18 12:11 Temperature 98.3 F 97.2 F L Pulse Rate 91 H 98 H Respiratory Rate 17 18 Blood Pressure 151/78 H 133/71 Pulse Oximetry 95 98 100 Intake & Output 07/12/18 07/13/18 07/13/18 18:59 06:59 18:59 Intake Total 1000 / 1000 2100 / 2100 300 / 300 Output Total 550 / 550 600 / 600 Balance 450 / 450 1500 / 1500 300 / 300 Weight 54.431 kg Intake: IV 1000 / 1000 2099 / 2100 NS Inj 1,000 ML @ 100 mls/hr IV 1000 / 1000 1999 / 1999 .CONT .Q10H JADA Rx#:[id number] Rocephin Inj 1,000 MG In NS Inj 100 / 100 100 ML @ 200 mls/hr IV.SIG Q24H JADA Rx#:[id number] Anesthesia Amount 300 / 300 Output: Urine 550 / 550 600 / 600 Other: Weight On Admission 54.431 kg Narrative: GENERAL: Frail and cachectic male, in no apparent distress. CARDIOVASCULAR: Normal rate and regular rhythm without murmurs, gallops, or rubs. RESPIRATORY: Good respiratory efforts. Breath sounds equal and clear to auscultation bilaterally. GASTROINTESTINAL: Abdomen soft, non-tender, non-distended. PEG tube in place. Normal active bowel sounds MUSCULOSKELETAL: Extremities without cyanosis, or edema. NEURO: Alert & Oriented. Left-sided hemiparesis Results - Labs CBC & Chem 7: 07/13/18 06:02 07/13/18 06:02 Laboratory Results - last 24 hr 07/11/18 07/12/18 07/12/18 23:59 18:14 20:12 WBC RBC Hgb Hct MCV MCH MCHC RDW Plt Count MPV Neut % (Auto) Lymph % (Auto) Wetzel % (Auto) Eos % (Auto) Baso % (Auto) Neut # (Auto) Lymph # (Auto) Wetzel # (Auto) Eos # (Auto) Baso # (Auto) WBC Differential Differential Comment Sodium Potassium Chloride Carbon Dioxide Anion Gap BUN Creatinine Estimated GFR POC Glucose 236 H 236 H Random Glucose Calcium Total Bilirubin AST ALT Alkaline Phosphatase Total Protein Albumin Urine Color Yellow Urine Clarity Cloudy H Urine pH 6.0 Ur Specific Nogal 1.017 Urine Protein 30 H Urine Glucose (UA) Negative Urine Ketones Negative Urine Occult Blood Negative Urine Nitrate Negative Urine Bilirubin Negative Urine Urobilinogen 2.0 H Ur Leukocyte Esterase Large H Urine RBC 3 Urine WBC Urine WBC Clumps Moderate H Ur Squamous Epith Cells <1 Urine Bacteria Many H Hyaline Casts 3 Urine Mucus Few H Micro UA Comment Cath-culture ind Urine Culture Comments Cath-cult indicated 07/13/18 07/13/18 07/13/18 06:02 06:02 07:41 WBC 12.9 H RBC 3.05 L Hgb 8.4 L Hct 26.2 L MCV 85.8 MCH 27.7 MCHC 32.2 RDW 16.5 Plt Count 426 MPV 9.2 Neut % (Auto) 75.8 H Lymph % (Auto) 16.5 Wetzel % (Auto) 5.7 Eos % (Auto) 1.4 Baso % (Auto) 0.6 Neut # (Auto) 9.8 H Lymph # (Auto) 2.1 Wetzel # (Auto) 0.7 Eos # (Auto) 0.2 Baso # (Auto) 0.1 WBC Differential . Differential Comment Auto diff final Sodium 150 H Potassium 4.0 Chloride 114 H D Carbon Dioxide 27.5 Anion Gap 9 BUN 31 H Creatinine 0.68 Estimated GFR Greater than 89 POC Glucose 185 H Random Glucose 183 H Calcium 8.0 L D Total Bilirubin 0.3 AST 11 L ALT 13 Alkaline Phosphatase 100 Total Protein 6.2 L D Albumin 2.3 L D Urine Color Urine Clarity Urine pH Ur Specific Nogal Urine Protein Urine Glucose (UA) Urine Ketones Urine Occult Blood Urine Nitrate Urine Bilirubin Urine Urobilinogen Ur Leukocyte Esterase Urine RBC Urine WBC Urine WBC Clumps Ur Squamous Epith Cells Urine Bacteria Hyaline Casts Urine Mucus Micro UA Comment Urine Culture Comments 07/13/18 12:04 WBC RBC Hgb Hct MCV MCH MCHC RDW Plt Count MPV Neut % (Auto) Lymph % (Auto) Wetzel % (Auto) Eos % (Auto) Baso % (Auto) Neut # (Auto) Lymph # (Auto) Wetzel # (Auto) Eos # (Auto) Baso # (Auto) WBC Differential Differential Comment Sodium Potassium Chloride Carbon Dioxide Anion Gap BUN Creatinine Estimated GFR POC Glucose 197 H Random Glucose Calcium Total Bilirubin AST ALT Alkaline Phosphatase Total Protein Albumin Urine Color Urine Clarity Urine pH Ur Specific Nogal Urine Protein Urine Glucose (UA) Urine Ketones Urine Occult Blood Urine Nitrate Urine Bilirubin Urine Urobilinogen Ur Leukocyte Esterase Urine RBC Urine WBC Urine WBC Clumps Ur Squamous Epith Cells Urine Bacteria Hyaline Casts Urine Mucus Micro UA Comment Urine Culture Comments Microbiology 07/11/18 23:59 Catheterized Urine Urine Culture - Preliminary gram negative rods 07/11/18 23:59 Blood - Peripheral Aerobic Blood Culture - Preliminary No growth in 1 day 07/11/18 23:59 Blood - Peripheral Anaerobic Blood Culture - Preliminary No growth in 1 day 07/11/18 23:55 Blood - Peripheral Aerobic Blood Culture - Preliminary No growth in 1 day 07/11/18 23:55 Blood - Peripheral Anaerobic Blood Culture - Preliminary No growth in 1 day - Imaging ITS Impressions Chest X-Ray 07/11/18 23:53 CONCLUSION: 1. No acute abnormality or significant interval change. - Procedures Date of procedure: 07/13/18 Pre-op diagnosis: Coffee-ground emesis, anemia Procedure: PROCEDURE PERFORMED EGD with biopsy PROCEDURE: The procedure, risks and benefits were discussed with Patient/POA and informed consent was obtained. Anesthesia sedated Patient with Diprivan. Patient was placed in the left lateral decubitus position. EGD: The Pentax videoscope was introduced through the oropharynx and advanced to the second portion of the duodenum under direct visualization. Retroflexion was performed in the stomach. FINDINGS: The esophagus there was distal esophageal mucosal erythema with some friability very mild though suggestive of esophagitis this was biopsied no ulcerations no active bleeding The stomach this appeared to be unremarkable and within normal limits PEG tube was noted to be within the stomach The duodenum this was normal ESTIMATED BLOOD LOSS: None SPECIMENS REMOVED: Esophageal biopsy COMPLICATIONS: None IMPRESSION: Mild esophagitis PLAN: Await biopsies Recommend proton pump inhibitor Advance diet Continue with current supportive care and monitor labs Anesthesia: MAC Surgeon: Zoltan Grande Condition: stable Disposition: floor Documented By: Zoltan Grande MD 07/13/18 1128 Assessment and Plan - Assessment (1) Sepsis Code(s): A41.9 - Sepsis, unspecified organism Status: Acute (2) UTI (urinary tract infection) Code(s): N39.0 - Urinary tract infection, site not specified Status: Acute (3) GI bleed Code(s): K92.2 - Gastrointestinal hemorrhage, unspecified Status: Acute (4) CVA (cerebral vascular accident) Code(s): I63.9 - Cerebral infarction, unspecified Status: Acute (5) DM (diabetes mellitus) Code(s): E11.9 - Type 2 diabetes mellitus without complications Status: Acute - Plan 62-year-old male with: 1. Sepsis: HR 112, WBC 21, Source-UTI, s/p Blood Cultures, Urine Cultures, IV Rocephin, continue IV Abx, IVF for hydration, follow up cultures. 2. UTI: U/a w/ UTI, continue w/ IV Rocephin, monitor I/O, follow up cultures, IVF for hydration. H/o Urinary retention, avoid Yadav if possible. 3. GI Bleed: Coffee ground material noted in PEG tube, recent admit 07/05- for same, s/p eval by GI w/ readjustment of PEG, hold ASA, Hgb stable. -GI following and planning for EGD in a.m. Continue tube feeding.--SP EGD 07-13 MILD ESOPHAGITIS 4. CVA: h/o CVA w/ Left Hemiparesis, at baseline. PT for eval/tx 5. DM: Sliding scale w/ Accu-Cheks HYPERNATREMIA- AM LABS MARGOT TA AND RN AND PT 6. DVT Prophylaxis: SCD/teds. Code Status: FULL CODE Discussed Condition With: MARGOT RN AND PT AND CM Discharge Planning: PENDING LAB IMPROVEMENT
[2018-07-14 04:18] VITALS: O2SAT 99
[2018-07-14] MEDS: Acetaminophen 325 MG Tablet PO PRN (06:08)
[2018-07-14] MEDS: Sod Chloride 0.9% Inj 1,000 ML IV.CONT SCH (06:12)
[2018-07-14 06:49] LABS: Hematocrit 27.7 % (39.0-51.0); Hemoglobin 8.8 gm/dL (13.0-17.0); Mean Corpuscular HGB Conc 31.8 % (32.0-36.0); Mean Corpuscular Hemoglobin 28.1 pg (27.0-34.0); Mean Corpuscular Volume 88.4 fL (80.0-100.0); Platelet Count 371 th/mm3 (150-450); Red Blood Count 3.14 mil/mm3 (4.50-5.90); Red Cell Distribution Width 16.5 % (11.6-17.2); White Blood Count 12.1 th/mm3 (4.0-11.0)
[2018-07-14 07:15] LABS: Albumin 2.5 g/dL (3.4-5.0); Anion Gap 8 meq/L (5-15); Aspartate Aminotransferase 19 U/L (15-37); Blood Urea Nitrogen 22 mg/dL (7-18); Carbon Dioxide 25.7 meq/L (21.0-32.0); Chloride 112 meq/L (98-107); Glomerular Filtration Rate Greater Than 89 mL/min (>89); Glucose,Random 261 mg/dL (74-106); Magnesium 2.1 mg/dL (1.5-2.5); Potassium 4.5 meq/L (3.5-5.1); Sodium 146 meq/L (136-145)
[2018-07-14 07:26] LABS: Alanine Aminotransferase 12 U/L (12-78); Alkaline Phosphatase 133 U/L (45-117); Free T4 (Free Thyroxine) 1.07 ng/dL (0.76-1.46); Phosphorus 1.8 mg/dL (2.5-4.9); Total Protein 6.4 g/dL (6.4-8.2)
[2018-07-14 07:39] LABS: Eosinophils 1 % (0-4); Lymphocytes 15 % (9-44); Monocytes 6 % (0-8); Platelet Estimate Normal (Normal); Platelet Morphology Normal (Normal)
[2018-07-14 08:59] VITALS: RESP 18
--- NOTE | 2018-07-14 09:51 | P.PNIM ---
Subjective Interval history: This is a 62-year-old male with a PMH of HTN, CVA w/ Left Hemiparesis, DM, Urinary Retention and h/o GI Bleed who was sent to the ER from SNF for coffee- ground material in PEG Tube. Previous h/o CVA 07/01/18 w/ residual left-sided hemiparesis, s/p PEG Tube placement at that time, re-admitted 07/05-07/08/18 for coffee-ground material noted in PEG Tube, Hgb stable throughout hospitalization , s/p eval by GI w/ readjustment of PEG tube, ASA resumed at the time of d/c. Returns now w/ recurrent episode of GI Bleed. On arrival, BP 136/60, HR 112, O2 sat 97% on RA, Afebrile. WBC 21.1. INR 1.0. Chemistry essentially unremarkable. Lactic Acid 1.1. UA positive for UTI. CXR with no acute findings. S/p Protonix and Rocephin in ER. Pt w/o complaints at this time 07-12 Patient complains of some back pain. He states he vomited at the alf facility but has been doing okay since then. He denies nausea currently. 07-13 HAD EGD TODAY SHOWS ESOPHAGITIS ONLY AM LABS RESTART TUBE FEEDS PPI DW RN AND PT AND CM 07-14 NO NEW COMPLAINTS NO SOB, NO CHEST PAIN, NO PALPITATIONS WORKING WITH PT DC TO SNF TODAY Physical Exam Vital signs: Vital Signs 07/13/18 12:00 07/13/18 12:11 07/13/18 19:00 Temperature 98.3 F 97.2 F L Pulse Rate 91 H 98 H Respiratory Rate Blood Pressure 151/78 H 133/71 Pulse Oximetry 98 100 96 07/13/18 20:00 07/14/18 00:00 07/14/18 03:21 Temperature 97.6 F 97.3 F L Pulse Rate 77 67 94 H Respiratory Rate 18 Blood Pressure 180/84 H 162/64 H Pulse Oximetry 99 97 07/14/18 04:00 07/14/18 04:15 07/14/18 08:00 Temperature 98.5 F 97.8 F Pulse Rate 87 85 81 Respiratory Rate 18 Blood Pressure 163/79 H 176/85 H Pulse Oximetry 99 99 Intake & Output 0907/14/18 07/14/18 18:59 06:59 18:59 Intake Total 1300 / 1300 1630 / 1630 Output Total 1900 / 1900 Balance 1300 / 1300 -270 / -270 Weight 54.431 kg 54.3 kg Intake: IV 1000 / 1000 939 / 939 NS Inj 1,000 ML @ 100 mls/hr IV 1000 / 1000 839 / 839 .CONT .Q10H JADA Rx#:[id number] Rocephin Inj 1,000 MG In NS Inj 100 / 100 100 ML @ 200 mls/hr IV.SIG Q24H JADA Rx#:[id number] Tube Feeding 571 / 571 Tube Irrigant 120 / 120 Anesthesia Amount 300 / 300 Output: Urine 1900 / 1900 Other: Weight On Admission 54.431 kg Narrative: GENERAL: Frail and cachectic male, in no apparent distress. CARDIOVASCULAR: Normal rate and regular rhythm without murmurs, gallops, or rubs. RESPIRATORY: Good respiratory efforts. Breath sounds equal and clear to auscultation bilaterally. GASTROINTESTINAL: Abdomen soft, non-tender, non-distended. PEG tube in place. Normal active bowel sounds MUSCULOSKELETAL: Extremities without cyanosis, or edema. NEURO: Alert & Oriented. Left-sided hemiparesis Results - Labs CBC & Chem 7: 07/14/18 06:01 07/14/18 06:01 Laboratory Results - last 24 hr 07/13/18 07/13/18 07/14/18 12:04 17:35 06:01 WBC 12.1 H RBC 3.14 L Hgb 8.8 L Hct 27.7 L MCV 88.4 MCH 28.1 MCHC 31.8 L RDW 16.5 Plt Count 371 MPV 10.0 Prelim Diff (Auto) Manual diff required WBC Differential Manual diff final Seg Neuts % (Manual) 76 H Band Neuts % (Manual) 1 Lymphocytes % (Manual) 15 Monocytes % (Manual) 6 Eosinophils % (Manual) 1 Basophils % (Manual) 1 Abs Neuts (Manual) 9.3 H Differential Comment . Platelet Estimate Normal Platelet Morphology Normal Sodium Potassium Chloride Carbon Dioxide Anion Gap BUN Creatinine Estimated GFR POC Glucose 197 H 134 H Random Glucose Calcium Phosphorus Magnesium Total Bilirubin AST ALT Alkaline Phosphatase Total Protein Albumin TSH Free T4 07/14/18 06:01 WBC RBC Hgb Hct MCV MCH MCHC RDW Plt Count MPV Prelim Diff (Auto) WBC Differential Seg Neuts % (Manual) Band Neuts % (Manual) Lymphocytes % (Manual) Monocytes % (Manual) Eosinophils % (Manual) Basophils % (Manual) Abs Neuts (Manual) Differential Comment Platelet Estimate Platelet Morphology Sodium 146 H Potassium 4.5 Chloride 112 H Carbon Dioxide 25.7 Anion Gap 8 BUN 22 H Creatinine 0.67 Estimated GFR Greater than 89 POC Glucose Random Glucose 261 H Calcium 8.0 L Phosphorus 1.8 L Magnesium 2.1 Total Bilirubin 0.2 AST 19 ALT 12 Alkaline Phosphatase 133 H Total Protein 6.4 Albumin 2.5 L TSH 2.000 Free T4 1.07 Microbiology 07/11/18 23:59 Catheterized Urine Urine Culture - Preliminary gram negative rods 07/11/18 23:59 Blood - Peripheral Aerobic Blood Culture - Preliminary No growth in 1 day 07/11/18 23:59 Blood - Peripheral Anaerobic Blood Culture - Preliminary No growth in 1 day 07/11/18 23:55 Blood - Peripheral Aerobic Blood Culture - Preliminary No growth in 1 day 07/11/18 23:55 Blood - Peripheral Anaerobic Blood Culture - Preliminary No growth in 1 day - Imaging Chest X-Ray 07/11/18 23:53 CONCLUSION: 1. No acute abnormality or significant interval change. - Procedures Date of procedure: 07/13/18 Pre-op diagnosis: Coffee-ground emesis, anemia Procedure: PROCEDURE PERFORMED EGD with biopsy PROCEDURE: The procedure, risks and benefits were discussed with Patient/POA and informed consent was obtained. Anesthesia sedated Patient with Diprivan. Patient was placed in the left lateral decubitus position. EGD: The Pentax videoscope was introduced through the oropharynx and advanced to the second portion of the duodenum under direct visualization. Retroflexion was performed in the stomach. FINDINGS: The esophagus there was distal esophageal mucosal erythema with some friability very mild though suggestive of esophagitis this was biopsied no ulcerations no active bleeding The stomach this appeared to be unremarkable and within normal limits PEG tube was noted to be within the stomach The duodenum this was normal ESTIMATED BLOOD LOSS: None SPECIMENS REMOVED: Esophageal biopsy COMPLICATIONS: None IMPRESSION: Mild esophagitis PLAN: Await biopsies Recommend proton pump inhibitor Advance diet Continue with current supportive care and monitor labs Anesthesia: MAC Surgeon: Zoltan Grande Condition: stable Disposition: floor Documented By: Zoltan Grande MD 07/13/18 1128 Assessment and Plan - Assessment (1) Sepsis Code(s): A41.9 - Sepsis, unspecified organism Status: Acute (2) UTI (urinary tract infection) Code(s): N39.0 - Urinary tract infection, site not specified Status: Acute (3) GI bleed Code(s): K92.2 - Gastrointestinal hemorrhage, unspecified Status: Acute (4) CVA (cerebral vascular accident) Code(s): I63.9 - Cerebral infarction, unspecified Status: Acute (5) DM (diabetes mellitus) Code(s): E11.9 - Type 2 diabetes mellitus without complications Status: Acute - Plan 62-year-old male with: 1. Sepsis: HR 112, WBC 21, Source-UTI, s/p Blood Cultures, Urine Cultures, IV Rocephin, continue IV Abx, IVF for hydration, follow up cultures. 2. UTI: U/a w/ UTI, continue w/ IV Rocephin, monitor I/O, follow up cultures, IVF for hydration. H/o Urinary retention, avoid Yadav if possible. 3. GI Bleed: Coffee ground material noted in PEG tube, recent admit 07/05- for same, s/p eval by GI w/ readjustment of PEG, hold ASA, Hgb stable. -GI following and planning for EGD in a.m. Continue tube feeding.--SP EGD 07-13 MILD ESOPHAGITIS 4. CVA: h/o CVA w/ Left Hemiparesis, at baseline. PT for eval/tx 5. DM: Sliding scale w/ Accu-Cheks HYPERNATREMIA- AM LABS DW CM AND RN AND PT 6. DVT Prophylaxis: SCD/teds. DC TO SNF TODAY WHEN BED AVAILABLE DW RN AND PT AND CM Code Status: FULL CODE Discussed Condition With: RN AND PT AND CM Discharge Planning: DC TO SNF TODAY
[2018-07-14] MEDS: Pantoprazole Inj 40 MG Vial IV.PUSH SCH (09:59)
[2018-07-14] MEDS: Senna/Docusate Sodium 8.6/50 MG Tablet PO SCH (10:00)
--- NOTE | 2018-07-14 10:08 | P.DS ---
Date of admission: 07/12/18 01:24 Primary care physician: Jeff Vieira Attending physician on discharge: Osmel Núñez Anticipated date of discharge: 07/14/18 Brief History from admission: This is a 62-year-old male with a PMH of HTN, CVA w/ Left Hemiparesis, DM, Urinary Retention and h/o GI Bleed who was sent to the ER from for coffee- ground material in PEG Tube. Previous h/o CVA 07/01/18 w/ residual left-sided hemiparesis, s/p PEG Tube placement at that time, re-admitted 07/05-07/08/18 for coffee-ground material noted in PEG Tube, Hgb stable throughout hospitalization , s/p eval by GI w/ readjustment of PEG tube, ASA resumed at the time of d/c. Returns now w/ recurrent episode of GI Bleed. On arrival, BP 136/60, HR 112, O2 sat 97% on RA, Afebrile. WBC 21.1. INR 1.0. Chemistry essentially unremarkable. Lactic Acid 1.1. UA positive for UTI. CXR with no acute findings. S/p Protonix and Rocephin in ER. Pt w/o complaints at this time Patient update on day of discharge: This is a 62-year-old male with a PMH of HTN, CVA w/ Left Hemiparesis, DM, Urinary Retention and h/o GI Bleed who was sent to the ER from for coffee- ground material in PEG Tube. Previous h/o CVA 07/01/18 w/ residual left-sided hemiparesis, s/p PEG Tube placement at that time, re-admitted 07/05-07/08/18 for coffee-ground material noted in PEG Tube, Hgb stable throughout hospitalization , s/p eval by GI w/ readjustment of PEG tube, ASA resumed at the time of d/c. Returns now w/ recurrent episode of GI Bleed. On arrival, BP 136/60, HR 112, O2 sat 97% on RA, Afebrile. WBC 21.1. INR 1.0. Chemistry essentially unremarkable. Lactic Acid 1.1. UA positive for UTI. CXR with no acute findings. S/p Protonix and Rocephin in ER. Pt w/o complaints at this time 9-16 Patient complains of some back pain. He states he vomited at the half-way facility but has been doing okay since then. He denies nausea currently. 07-13 HAD EGD TODAY SHOWS ESOPHAGITIS ONLY AM LABS RESTART TUBE FEEDS PPI DW RN AND PT AND CM 07-14 NO NEW COMPLAINTS NO SOB, NO CHEST PAIN, NO PALPITATIONS WORKING WITH PT DC TO SNF TODAY DS: Diagnosis - Discharge Diagnosis (1) Sepsis Status: Acute (2) UTI (urinary tract infection) Status: Acute (3) GI bleed Status: Acute (4) CVA (cerebral vascular accident) Status: Acute (5) DM (diabetes mellitus) Status: Acute DS: Medications - Discharge Medications Prescriptions: ciprofloxacin [Cipro] 500 mg PO Q12H #100 ml lansoprazole [Prevacid SoluTab] 30 mg FEEDING TUBE BID #[id number] tab DS: Summary Hospital Course: This is a 62-year-old male with a PMH of HTN, CVA w/ Left Hemiparesis, DM, Urinary Retention and h/o GI Bleed who was sent to the ER from for coffee- ground material in PEG Tube. Previous h/o CVA 07/01/18 w/ residual left-sided hemiparesis, s/p PEG Tube placement at that time, re-admitted 07/05-07/08/18 for coffee-ground material noted in PEG Tube, Hgb stable throughout hospitalization , s/p eval by GI w/ readjustment of PEG tube, ASA resumed at the time of d/c. Returns now w/ recurrent episode of GI Bleed. On arrival, BP 136/60, HR 112, O2 sat 97% on RA, Afebrile. WBC 21.1. INR 1.0. Chemistry essentially unremarkable. Lactic Acid 1.1. UA positive for UTI. CXR with no acute findings. S/p Protonix and Rocephin in ER. Pt w/o complaints at this time 07-12 Patient complains of some back pain. He states he vomited at the half-way facility but has been doing okay since then. He denies nausea currently. 07-13 HAD EGD TODAY SHOWS ESOPHAGITIS ONLY AM LABS RESTART TUBE FEEDS PPI DW RN AND PT AND CM 07-14 NO NEW COMPLAINTS NO SOB, NO CHEST PAIN, NO PALPITATIONS WORKING WITH PT DC TO SNF TODAY - Time Spent with Patient Total time spent providing and/or coordinating discharge services: Greater than 30 minutes - Quality: VTE Deep Vein Thrombosis/Pulmonary Embolism Present on Admission: No Exam Vital signs: Vital Signs 07/13/18 12:00 07/13/18 12:11 07/13/18 19:00 Temperature 98.3 F 97.2 F L Pulse Rate 91 H 98 H Respiratory Rate 17 18 Blood Pressure 151/78 H 133/71 Pulse Oximetry 98 100 96 07/13/18 20:00 07/14/18 00:00 07/14/18 03:21 Temperature 97.6 F 97.3 F L Pulse Rate 77 67 94 H Respiratory Rate 16 18 Blood Pressure 180/84 H 162/64 H Pulse Oximetry 99 97 07/14/18 04:00 07/14/18 04:15 07/14/18 08:00 Temperature 98.5 F 97.8 F Pulse Rate 87 85 81 Respiratory Rate 17 18 Blood Pressure 163/79 H 176/85 H Pulse Oximetry 99 99 Intake & Output 07/13/18 07/14/18 07/14/18 18:59 06:59 18:59 Intake Total 1300 / 1300 1630 / 1630 Output Total 1900 / 1900 Balance 1300 / 1300 -270 / -270 Weight 54.431 kg 54.3 kg Intake: IV 1000 / 1000 939 / 939 NS Inj 1,000 ML @ 100 mls/hr IV 1000 / 1000 839 / 839 .CONT .Q10H JADA Rx#:[id number] Rocephin Inj 1,000 MG In NS Inj 100 / 100 100 ML @ 200 mls/hr IV.SIG Q24H JADA Rx#:[id number] Tube Feeding 571 / 571 Tube Irrigant 120 / 120 Anesthesia Amount 300 / 300 Output: Urine 1900 / 1900 Other: Weight On Admission 54.431 kg Narrative: GENERAL: Frail and cachectic male, in no apparent distress. CARDIOVASCULAR: Normal rate and regular rhythm without murmurs, gallops, or rubs. RESPIRATORY: Good respiratory efforts. Breath sounds equal and clear to auscultation bilaterally. GASTROINTESTINAL: Abdomen soft, non-tender, non-distended. PEG tube in place. Normal active bowel sounds MUSCULOSKELETAL: Extremities without cyanosis, or edema. NEURO: Alert & Oriented. Left-sided hemiparesis Results Procedures completed during hospitalization: Date of procedure: 07/13/18 Pre-op diagnosis: Coffee-ground emesis, anemia Procedure: PROCEDURE PERFORMED EGD with biopsy PROCEDURE: The procedure, risks and benefits were discussed with Patient/POA and informed consent was obtained. Anesthesia sedated Patient with Diprivan. Patient was placed in the left lateral decubitus position. EGD: The Pentax videoscope was introduced through the oropharynx and advanced to the second portion of the duodenum under direct visualization. Retroflexion was performed in the stomach. FINDINGS: The esophagus there was distal esophageal mucosal erythema with some friability very mild though suggestive of esophagitis this was biopsied no ulcerations no active bleeding The stomach this appeared to be unremarkable and within normal limits PEG tube was noted to be within the stomach The duodenum this was normal ESTIMATED BLOOD LOSS: None SPECIMENS REMOVED: Esophageal biopsy COMPLICATIONS: None IMPRESSION: Mild esophagitis PLAN: Await biopsies Recommend proton pump inhibitor Advance diet Continue with current supportive care and monitor labs Anesthesia: MAC Surgeon: Zoltan Grande Condition: stable Disposition: floor Documented By: Zoltan Grande MD 07/13/18 1128 Completed studies during hospitalization: Laboratory Results WBC 12.1 th/mm3 (4.0-11.0) H 07/14/18 06:01 RBC 3.14 mil/mm3 (4.50-5.90) L 07/14/18 06:01 Hgb 8.8 gm/dL (13.0-17.0) L 07/14/18 06:01 Hct 27.7 % (39.0-51.0) L 07/14/18 06:01 MCV 88.4 fL (80.0-100.0) 07/14/18 06:01 MCH 28.1 pg (27.0-34.0) 07/14/18 06:01 MCHC 31.8 % (32.0-36.0) L 07/14/18 06:01 RDW 16.5 % (11.6-17.2) 07/14/18 06:01 Plt Count 371 th/mm3 (150-450) 07/14/18 06:01 MPV 10.0 fL (7.0-11.0) 07/14/18 06:01 Prelim Diff (Auto) Manual diff required 07/14/18 06:01 Neut % (Auto) 75.8 % (16.0-70.0) H 07/13/18 06:02 Lymph % (Auto) 16.5 % (9.0-44.0) 07/13/18 06:02 [place] % (Auto) 5.7 % (0.0-8.0) 07/13/18 06:02 Eos % (Auto) 1.4 % (0.0-4.0) 07/13/18 06:02 Baso % (Auto) 0.6 % (0.0-2.0) 07/13/18 06:02 Neut # (Auto) 9.8 th/mm3 (1.8-7.7) H 07/13/18 06:02 Lymph # (Auto) 2.1 th/mm3 (1.0-4.8) 07/13/18 06:02 [place] # (Auto) 0.7 th/mm3 (0.0-0.9) 07/13/18 06:02 Eos # (Auto) 0.2 th/mm3 (0.0-0.4) 07/13/18 06:02 Baso # (Auto) 0.1 th/mm3 (0.0-0.2) 07/13/18 06:02 WBC Differential Manual diff final 07/14/18 06:01 Seg Neuts % (Manual) 76 % (16-70) H 07/14/18 06:01 Band Neuts % (Manual) 1 % (0-6) 07/14/18 06:01 Lymphocytes % (Manual) 15 % (9-44) 07/14/18 06:01 Monocytes % (Manual) 6 % (0-8) 07/14/18 06:01 Eosinophils % (Manual) 1 % (0-4) 07/14/18 06:01 Basophils % (Manual) 1 % (0-2) 07/14/18 06:01 Abs Neuts (Manual) 9.3 th/mm3 (1.8-7.7) H 07/14/18 06:01 Differential Comment . 07/14/18 06:01 Platelet Estimate Normal (Normal) 07/14/18 06:01 Platelet Morphology Normal (Normal) 07/14/18 06:01 PT 10.1 sec (9.8-11.6) 07/11/18 23:00 INR 1.0 Ratio 07/11/18 23:00 APTT 24.8 sec (24.3-30.1) 07/11/18 23:00 Sodium 146 meq/L (136-145) H 07/14/18 06:01 Potassium 4.5 meq/L (3.5-5.1) 07/14/18 06:01 Chloride 112 meq/L (98-107) H 07/14/18 06:01 Carbon Dioxide 25.7 meq/L (21.0-32.0) 07/14/18 06:01 Anion Gap 8 meq/L (5-15) 07/14/18 06:01 BUN 22 mg/dL (7-18) H 07/14/18 06:01 Creatinine 0.67 mg/dL (0.60-1.30) 07/14/18 06:01 Estimated GFR Greater than 89 mL/min (>89) 07/14/18 06:01 POC Glucose 134 mg/dl (68-110) H 07/13/18 17:35 Random Glucose 261 mg/dL (74-106) H 07/14/18 06:01 Lactic Acid 1.1 mmol/L (0.4-2.0) 07/12/18 01:28 Calcium 8.0 mg/dL (8.5-10.1) L 07/14/18 06:01 Phosphorus 1.8 mg/dL (2.5-4.9) L 07/14/18 06:01 Magnesium 2.1 mg/dL (1.5-2.5) 07/14/18 06:01 Total Bilirubin 0.2 mg/dL (0.2-1.0) 07/14/18 06:01 AST 19 U/L (15-37) 07/14/18 06:01 ALT 12 U/L (12-78) 07/14/18 06:01 Alkaline Phosphatase 133 U/L (45-117) H 07/14/18 06:01 Total Protein 6.4 g/dL (6.4-8.2) 07/14/18 06:01 Albumin 2.5 g/dL (3.4-5.0) L 07/14/18 06:01 TSH 2.000 uIU/mL (0.358-3.740) 07/14/18 06:01 Free T4 1.07 ng/dL (0.76-1.46) 07/14/18 06:01 Urine Color Yellow (Yellw/Straw) 07/11/18 23:59 Urine Clarity Cloudy (Clear) H 07/11/18 23:59 Urine pH 6.0 (5.0-8.5) 07/11/18 23:59 Ur Specific [place] 1.017 (1.002-1.035) 07/11/18 23:59 Urine Protein 30 mg/dL (Neg-Trace) H 07/11/18 23:59 Urine Glucose (UA) Negative mg/dL (Negative) 07/11/18 23:59 Urine Ketones Negative mg/dL (Negative) 07/11/18 23:59 Urine Occult Blood Negative (Negative) 07/11/18 23:59 Urine Nitrate Negative (Negative) 07/11/18 23:59 Urine Bilirubin Negative (Negative) 07/11/18 23:59 Urine Urobilinogen 2.0 mg/dL (Less than 2) H 07/11/18 23:59 Ur Leukocyte Esterase Large (Negative) H 07/11/18 23:59 Urine RBC 3 /hpf (0-3) 07/11/18 23:59 Urine WBC /hpf (0-5) 07/11/18 23:59 Urine WBC Clumps Moderate (None) H 07/11/18 23:59 Ur Squamous Epith Cells <1 /hpf (0-5) 07/11/18 23:59 Urine Bacteria Many /hpf (None) H 07/11/18 23:59 Hyaline Casts 3 /lpf (0-3) 07/11/18 23:59 Urine Mucus Few /lpf (Occasional) H 07/11/18 23:59 Micro UA Comment Cath-culture ind 07/11/18 23:59 Ur Microscopic Review Not Reportable 07/11/18 23:59 Urine Culture Comments Cath-cult indicated 07/11/18 23:59 Blood Type O Positive 07/11/18 23:00 Blood Type Recheck Not needed 07/11/18 23:00 Antibody Screen Negative 07/11/18 23:00 Impressions Chest X-Ray 07/11/18 23:53 CONCLUSION: 1. No acute abnormality or significant interval change. Pending studies at discharge: Pending at discharge 07/13/18 15:16 Surgical [PTH] Routine Labs on day of discharge: Labs from last 24 hours 07/14/18 07/14/18 07/14/18 06:01 06:01 06:01 WBC 12.1 H RBC 3.14 L Hgb 8.8 L Hct 27.7 L MCV 88.4 MCH 28.1 MCHC 31.8 L RDW 16.5 Plt Count 371 MPV 10.0 Prelim Diff (Auto) Manual diff required WBC Differential Manual diff final Seg Neuts % (Manual) 76 H Band Neuts % (Manual) 1 Lymphocytes % (Manual) 15 Monocytes % (Manual) 6 Eosinophils % (Manual) 1 Basophils % (Manual) 1 Abs Neuts (Manual) 9.3 H Differential Comment . Platelet Estimate Normal Platelet Morphology Normal Sodium 146 H Potassium 4.5 Chloride 112 H Carbon Dioxide 25.7 Anion Gap 8 BUN 22 H Creatinine 0.67 Estimated GFR Greater than 89 POC Glucose Random Glucose 261 H Hemoglobin A1c Pending Calcium 8.0 L Phosphorus 1.8 L Magnesium 2.1 Total Bilirubin 0.2 AST 19 ALT 12 Alkaline Phosphatase 133 H Total Protein 6.4 Albumin 2.5 L TSH 2.000 Free T4 1.07 07/13/18 07/13/18 17:35 12:04 WBC RBC Hgb Hct MCV MCH MCHC RDW Plt Count MPV Prelim Diff (Auto) WBC Differential Seg Neuts % (Manual) Band Neuts % (Manual) Lymphocytes % (Manual) Monocytes % (Manual) Eosinophils % (Manual) Basophils % (Manual) Abs Neuts (Manual) Differential Comment Platelet Estimate Platelet Morphology Sodium Potassium Chloride Carbon Dioxide Anion Gap BUN Creatinine Estimated GFR POC Glucose 134 H 197 H Random Glucose Hemoglobin A1c Calcium Phosphorus Magnesium Total Bilirubin AST ALT Alkaline Phosphatase Total Protein Albumin TSH Free T4 Preliminary micro results at discharge 07/11/18 23:59 Urine Culture - Preliminary Catheterized Urine gram negative rods 07/11/18 23:59 Aerobic Blood Culture - Preliminary Blood - Peripheral No growth in 1 day Anaerobic Blood Culture - Preliminary No growth in 1 day 07/11/18 23:55 Aerobic Blood Culture - Preliminary Blood - Peripheral No growth in 1 day Anaerobic Blood Culture - Preliminary No growth in 1 day - Impressions ITS Impressions Chest X-Ray 07/11/18 23:53 CONCLUSION: 1. No acute abnormality or significant interval change. Discharge Plan - Discharge Disposition Patient Disposition: 03 Discharge to SNF - Discharge Condition Condition: Good - Discharge Order Discharge Orders: Discharge Order (Routine); Ordered 07/14/18 Ordered By: Osmel Núñez - Discharge Details Anticipated Discharge Date: 07/14/18 Discharge Comment: DC TO SNF WHEN BED AVAILABLE - Physicians Team Primary Care Provider: Jeff Vieira Attending Provider: Osmel Núñez Other Providers: Annamaria Gaming MD
[2018-07-14] MEDS: Insulin NovoLOG Aspart Correctional Sugar Inj SQ SCH ×2 (10:25→12:47)
[2018-07-14 12:20] VITALS: BP 163/90; PULSE 88; TEMP 97.5
== END 2018-07-14 12:40 ==
LOC: NEPE 22:12 → NEDA 07-12 01:24 → N05 07-12 04:58
PROVIDERS: ADMIT Hospitalist; ATTEND Hospitalist
PROC: PANENDO (2018-07-13 10:37)

== ENCOUNTER 2018-08-18 00:38 | Inpatient (IN) ==
[2018-08-18] MEDS ORDERED: Piperacil/Tazo 4.5 GM Premix 4.5 GM/100 ML BAG IV.SIG ONE (00:56)
[2018-08-18] MEDS ORDERED: Vancomycin Inj 1 GM/200 ML PIGGYBACK IV.SIG ONE (00:56)
[2018-08-18 01:16] LABS: Hematocrit 23.5 % (39.0-51.0); Hemoglobin 8.2 gm/dL (13.0-17.0); Mean Corpuscular HGB Conc 34.7 % (32.0-36.0); Mean Corpuscular Hemoglobin 28.7 pg (27.0-34.0); Mean Corpuscular Volume 82.8 fL (80.0-100.0); Mean Platelet Volume 8.8 fL (7.0-11.0); Platelet Count 380 th/mm3 (150-450); Red Blood Count 2.84 mil/mm3 (4.50-5.90); Red Cell Distribution Width 17.2 % (11.6-17.2); White Blood Count 33.1 th/mm3 (4.0-11.0)
--- NOTE | 2018-08-18 01:25 | CT ---
EXAM DATE: 08/18/2018 1:03 AM EDT AGE/SEX: 62 years / Male INDICATIONS: Altered mental status. CLINICAL DATA: This is the patient's initial encounter. Patient reports that signs and symptoms have been present for 1 day and indicates a pain score of 0/10. MEDICAL/SURGICAL HISTORY: Cerebrovascular disease. Hypertension. Diabetes mellitus type II. None. RADIATION DOSE: 36.52 CTDI (mGy) COMPARISON: [facility] – [place], CT HEAD W/O CONTRAST, 07/03/2018. . TECHNIQUE: CT of the head without contrast. Using automated exposure control and adjustment of the mA and/or kV according to patient size, radiation dose was kept as low as reasonably achievable to ob tain optimal diagnostic quality images. DICOM format image data is available electronically for revi ew and comparison. FINDINGS: Cerebrum: The ventricles and cortical sulci are mildly widened. There are focal areas of encephaloma lacia at the posterior internal capsule and posterior basal ganglia on the right and a smaller old la cunar infarct at the genu of the internal capsule on the left. These were present previously. . No e vidence of midline shift, mass lesion, hemorrhage or acute infarction. No extraaxial fluid collectio ns are seen. Posterior Fossa: The cerebellum and brainstem are intact. The 4th ventricle is midline. The cerebe llopontine angle is unremarkable. Extracranial: The visualized portion of the orbits is intact. Skull: The calvaria is intact. No evidence of skull fracture. CONCLUSION: 1. No acute intracranial abnormality. 2. 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 . Electronically signed by: Pawan Owusu MD 08/18/2018 1:24 AM EDT
[2018-08-18 01:43] LABS: Alanine Aminotransferase 32 U/L (12-78); Albumin 2.5 g/dL (3.4-5.0); Anion Gap 10 meq/L (5-15); Aspartate Aminotransferase 26 U/L (15-37); Blood Urea Nitrogen 92 mg/dL (7-18); Calcium 9.1 mg/dL (8.5-10.1); Carbon Dioxide 29.6 meq/L (21.0-32.0); Chloride 89 meq/L (98-107); Glomerular Filtration Rate 34 mL/min (>89); Glucose,Random 200 mg/dL (74-106); Magnesium 3.4 mg/dL (1.5-2.5); Potassium 5.5 meq/L (3.5-5.1); Sodium 129 meq/L (136-145)
[2018-08-18 01:47] LABS: Lymphocytes 6 % (9-44); Metamyelocytes 4 % (0-1); Monocytes 5 % (0-8); Myelocytes 1 % (0-0); Tallied Nucleated RBC 1 (0-0)
[2018-08-18 01:49] LABS: Dohle Bodies Present; Platelet Estimate Normal (Normal); Platelet Morphology Normal (Normal); Toxic Vacuolation Present
[2018-08-18 01:53] LABS: Alkaline Phosphatase 100 U/L (45-117)
[2018-08-18 01:57] LABS: Bilirubin,Urine Negative (Negative); Clarity,Urine Turbid (Clear); Color,Urine Amber (Yellw/Straw); Glucose,Urine (UA) Negative (Negative); Hyaline Casts,Urine 9 /lpf (0-3); Leukocyte Esterase,Urine Large (Negative); Mucus,Urine Few /lpf (Occasional); Nitrite,Urine Negative (Negative); Specific Gravity,Urine 1.016 (1.002-1.035)
[2018-08-18 02:01] LABS: Creatine Kinase 50 U/L (39-308)
--- NOTE | 2018-08-18 02:04 | ED ---
HPI General Chief Complaint: Altered Mental Status Stated Complaint: Confused Time Seen by Provider: 08/18/18 00:55 Source: EMS and old records reviewed Mode of arrival: EMS Limitations: altered mental status History of Present Illness HPI narrative: 62-year-old male came to the emergency room brought by EMS from [facility]. As per the staff patient was altered mental status for past 8 hours and his symptoms progressively worsen with called 911. Patient is a DNR. He has history of previous stroke and left-sided hemiplegia. 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 As per EMS his GCS was 4 when they arrived and after this started fluid he improved to 10. His blood pressure initially was 80 systolic and prior to getting inside the ER it was 100 systolic. Patient obviously was unable to give any history. Blood sugar was 220. MD complaint: Reports altered mental status Onset (ago): hour(s) Timing confirmed by: caregiver Severity: severe Related Data Home Medications Medication Instructions Recorded Confirmed amlodipine 10 mg FEEDING TUBE DAILY 06/27/18 08/18/18 cyclobenzaprine 10 mg FEEDING TUBE TID PRN 06/27/18 08/18/18 ferrous sulfate 325 mg FEEDING TUBE DAILY 06/27/18 08/18/18 lisinopril 20 mg FEEDING TUBE DAILY 06/27/18 08/18/18 metformin 1,000 mg FEEDING TUBE BID 06/27/18 08/18/18 atorvastatin [Lipitor] 10 mg FEEDING TUBE HS 07/03/18 08/18/18 magnesium citrate 296 ml FEEDING TUBE DAILY PRN 07/03/18 08/18/18 magnesium hydroxide [Milk of 30 ml FEEDING TUBE DAILY PRN 07/03/18 08/18/18 Magnesia] sennosides [Senna Lax] 2 tab FEEDING TUBE Q12H PRN 07/03/18 08/18/18 Previous Rx's Medication Instructions Recorded insulin aspart U-100 [Novolog 0 unit SUB-Q ACHS #1 vial 06/26/18 U-100 Insulin aspart] bisacodyl [Bisac-Evac] 10 mg NC DAILY PRN ea 06/30/18 insulin detemir U-100 [Levemir 10 unit SUB-Q BID ml 06/30/18 U-100 Insulin] aspirin 325 mg G-TUBE DAILY tab 07/08/18 metoprolol tartrate 12.5 mg PO BID #0 tab 07/08/18 tamsulosin 0.4 mg PO DAILY cap 07/08/18 acetaminophen 650 mg PO Q4H PRN tab 07/14/18 ciprofloxacin [Cipro] 500 mg PO Q12H #100 ml 07/14/18 lansoprazole [Prevacid SoluTab] 30 mg FEEDING TUBE BID #60 tab 07/14/18 Allergies Allergy/AdvReac Type Severity Reaction Status Date / Time No Known Allergies Allergy Verified 07/11/18 22:34 Review of Systems ROS Unobtainable ROS Unobtainable: unobtainable due to mental status [facility] Medical History Medical History Stroke (Acute) Hyperlipemia (Acute) Anemia (Acute) HTN (hypertension) (Acute) Diabetes mellitus (Acute) 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) Surgical History Surgical History S/P percutaneous endoscopic gastrostomy (PEG) tube placement (Acute) Family History Family History Mother CVA (cerebral vascular accident) HTN (hypertension) Social History Social History Substance History: No History of Abuse Second Hand Smoke Exposure: No Smoking Status: Unknown if ever smoked Tobacco Type: Cigarettes How Often Do You Have a Drink Containing Alcohol: Unable to Obtain Recent Travel in [facility] within the Last 8 Weeks: No Recent Out of Country Travel within the Last 8 Weeks: No Immunization History Tetanus Immunization: Unable to Assess Exam Narrative Exam Narrative: GENERAL: Poorly responsive, emaciated, severe distress SKIN: Focused skin assessment warm/dry. HEAD: Atraumatic. Normocephalic. EYES: Pupils equal and round. No scleral icterus. No injection or drainage. ENT: No nasal bleeding or discharge. Dry mucous membrane. NECK: Trachea midline. No JVD. CARDIOVASCULAR: Regular rate and rhythm. No murmur appreciated. RESPIRATORY: No accessory muscle use. Clear to auscultation. Breath sounds equal bilaterally. GASTROINTESTINAL: Abdomen soft, non-tender, nondistended. G-tube. Hepatic and splenic margins not palpable. Yadav catheter MUSCULOSKELETAL: No obvious deformities. No clubbing. No cyanosis. No edema. NEUROLOGICAL: GCS of 8 PSYCHIATRIC: Unable to assess. Course Initial Documented Vital Signs Temperature 97.4 F L 08/18/18 00:44 Pulse Rate 100 H 08/18/18 00:44 Respiratory Rate 30 H 08/18/18 00:44 Blood Pressure 115/58 L 08/18/18 00:44 Pulse Oximetry 95 08/18/18 00:44 Last Documented Vital Signs Temperature 97.8 F 08/24/18 00:00 Pulse Rate 62 08/24/18 03:12 Respiratory Rate 14 08/24/18 03:13 Blood Pressure 160/73 H 08/24/18 00:00 Pulse Oximetry 96 08/24/18 03:13 Critical Care Time Critical Care Time: Yes Total Critical Care Time: 45 Attestation: Aggregate critical care time was 45 minutes. Time to perform other separately billable procedures was not included in the critical care time. My time did not include minutes spent treating any other patients simultaneously or on activities that did not directly contribute to the patient's treatment. The services I provided to this patient were to treat and/or prevent clinically significant deterioration that could result in: Sepsis, sepsis protocol I provided critical care services requiring my management, as noted below: Chart data review, documentation time, medication orders and management, vital sign assessments/reviewing monitor data, ordering and reviewing lab tests, ordering and interpreting/reviewing x-rays and diagnostic studies, care of the patient and discussion of the patient with the admitting physicians. Medical Decision Making MDM Narrative Medical decision making narrative: 2:21 AM patient was given IV fluid bolus and Zosyn and vancomycin as per sepsis protocol. Blood test results confirm sepsis. Patient will be admitted to the hospitalist. Medical Screen Exam Complete: Yes Emergency Medical Condition: Yes Lab Data Result diagrams: 08/23/18 04:24 08/23/18 13:54 Lab Results 08/18/18 08/18/18 08/18/18 Range/Units 01:00 01:00 01:00 WBC 33.1 H (4.0-11.0) th/mm3 RBC 2.84 L (4.50-5.90) mil/mm3 Hgb 8.2 L (13.0-17.0) gm/dL Hct 23.5 L (39.0-51.0) % MCV 82.8 (80.0-100.0) fL MCH 28.7 (27.0-34.0) pg MCHC 34.7 (32.0-36.0) % RDW 17.2 (11.6-17.2) % Plt Count 380 (150-450) th/mm3 MPV 8.8 (7.0-11.0) fL Prelim Diff (Auto) Manual diff required Neut % (Auto) (16.0-70.0) % Lymph % (Auto) (9.0-44.0) % Power % (Auto) (0.0-8.0) % Eos % (Auto) (0.0-4.0) % Baso % (Auto) (0.0-2.0) % Neut # (Auto) (1.8-7.7) th/mm3 Lymph # (Auto) (1.0-4.8) th/mm3 Power # (Auto) (0.0-0.9) th/mm3 Eos # (Auto) (0.0-0.4) th/mm3 Baso # (Auto) (0.0-0.2) th/mm3 WBC Differential Manual diff final Diff Scan Seg Neuts % (Manual) 71 H (16-70) % Band Neuts % (Manual) 13 H (0-6) % Lymphocytes % (Manual) 6 L (9-44) % Monocytes % (Manual) 5 (0-8) % Eosinophils % (Manual) (0-4) % Basophils % (Manual) (0-2) % Metamyelocytes % (Man) 4 H (0-1) % Myelocytes % (Man) 1 H (0-0) % Promyelocytes % (Man) (0-0) % Abs Neuts (Manual) 29.5 H (1.8-7.7) th/mm3 Nucleated RBCs/100 WBC 1 H (0-0) /100 WBC Differential Comment . Toxic Granulation (None) Toxic Vacuolation Present H (None) Dohle Bodies Present H (None) Platelet Estimate Normal (Normal) Platelet Morphology Normal (Normal) Target Cells (None) Tear Drop Cells (None) Ovalocytes (None) Acanthocytes (Spur) (None) Keratocytes Occ H (None) PT (9.8-11.6) sec INR Ratio APTT (24.3-30.1) sec Puncture Site Patient Temperature O2 Saturation (90-100) % ABG pH (7.380-7.420) ABG pCO2 (38-42) mmHg ABG pO2 (61-120) mmHg ABG HCO3 (22-26) mmol/L ABG O2 Content (12.0-20.0) Vol % ABG Base Excess (-2-2) mmol/L ABG Methemoglobin (0-2) % Adrian Test Hemoglobin (12.0-16.0) G/DL Carboxyhemoglobin (0-4) % O2 Delivery Device Liter Flow L/M Vent Setting Inspired O2 % Critical Value Sodium 129 L (136-145) meq/L Potassium 5.5 H (3.5-5.1) meq/L Chloride 89 L (98-107) meq/L Carbon Dioxide 29.6 (21.0-32.0) meq/L Anion Gap 10 (5-15) meq/L BUN 92 H (7-18) mg/dL Creatinine 2.40 H (0.60-1.30) mg/dL Estimated GFR 34 L (>89) mL/min POC Glucose (68-110) mg/dl Random Glucose 200 H (74-106) mg/dL Lactic Acid 3.4 H (0.4-2.0) mmol/L Calcium 9.1 (8.5-10.1) mg/dL Prot Corrected Calcium (8.5-10.1) mg/dL Phosphorus (2.5-4.9) mg/dL Magnesium 3.4 H (1.5-2.5) mg/dL Total Bilirubin 0.2 (0.2-1.0) mg/dL AST 26 (15-37) U/L ALT 32 (12-78) U/L Alkaline Phosphatase 100 (45-117) U/L Total Creatine Kinase 50 (39-308) U/L Troponin I Less than 0.02 L (0.02-0.05) ng/mL B-Natriuretic Peptide (0-100) pg/mL Total Protein 7.0 (6.4-8.2) g/dL Albumin 2.5 L (3.4-5.0) g/dL TSH 1.900 (0.358-3.740) uIU/mL Urine Color (Yellw/Straw) Urine Clarity (Clear) Urine pH (5.0-8.5) Ur Specific [place] (1.002-1.035) Urine Protein (Neg-Trace) mg/dL Urine Glucose (UA) (Negative) mg/dL Urine Ketones (Negative) mg/dL Urine Occult Blood (Negative) Urine Nitrate (Negative) Urine Bilirubin (Negative) Urine Urobilinogen (Less than 2) mg/dL Ur Leukocyte Esterase (Negative) Urine RBC (0-3) /hpf Urine WBC (0-5) /hpf Urine WBC Clumps (None) Hyaline Casts (0-3) /lpf Urine Mucus (Occasional) /lpf Micro UA Comment Ur Microscopic Review Urine Culture Comments Nasal Screen MRSA (PCR) (Negative) Vancomycin Trough (5.0-10.0) mcg/mL Random Vancomycin Comment Blood Type Antibody Screen MTS Gel Crossmatch 08/18/18 08/18/18 08/18/18 Range/Units 01:05 02:50 03:40 WBC (4.0-11.0) th/mm3 RBC (4.50-5.90) mil/mm3 Hgb (13.0-17.0) gm/dL Hct (39.0-51.0) % MCV (80.0-100.0) fL MCH (27.0-34.0) pg MCHC (32.0-36.0) % RDW (11.6-17.2) % Plt Count (150-450) th/mm3 MPV (7.0-11.0) fL Prelim Diff (Auto) Neut % (Auto) (16.0-70.0) % Lymph % (Auto) (9.0-44.0) % Power % (Auto) (0.0-8.0) % Eos % (Auto) (0.0-4.0) % Baso % (Auto) (0.0-2.0) % Neut # (Auto) (1.8-7.7) th/mm3 Lymph # (Auto) (1.0-4.8) th/mm3 Power # (Auto) (0.0-0.9) th/mm3 Eos # (Auto) (0.0-0.4) th/mm3 Baso # (Auto) (0.0-0.2) th/mm3 WBC Differential Diff Scan Seg Neuts % (Manual) (16-70) % Band Neuts % (Manual) (0-6) % Lymphocytes % (Manual) (9-44) % Monocytes % (Manual) (0-8) % Eosinophils % (Manual) (0-4) % Basophils % (Manual) (0-2) % Metamyelocytes % (Man) (0-1) % Myelocytes % (Man) (0-0) % Promyelocytes % (Man) (0-0) % Abs Neuts (Manual) (1.8-7.7) th/mm3 Nucleated RBCs/100 WBC (0-0) /100 WBC Differential Comment Toxic Granulation (None) Toxic Vacuolation (None) Dohle Bodies (None) Platelet Estimate (Normal) Platelet Morphology (Normal) Target Cells (None) Tear Drop Cells (None) Ovalocytes (None) Acanthocytes (Spur) (None) Keratocytes (None) PT (9.8-11.6) sec INR Ratio APTT (24.3-30.1) sec Puncture Site Right femoral Patient Temperature 98.6 O2 Saturation 95 (90-100) % ABG pH 7.49 H (7.380-7.420) ABG pCO2 39 (38-42) mmHg ABG pO2 81 (61-120) mmHg ABG HCO3 29 H (22-26) mmol/L ABG O2 Content 10.2 L (12.0-20.0) Vol % ABG Base Excess 5.5 H (-2-2) mmol/L ABG Methemoglobin 0.8 (0-2) % Adrian Test Hemoglobin 7.6 L* (12.0-16.0) G/DL Carboxyhemoglobin 2.3 (0-4) % O2 Delivery Device Partia rebreather mk Liter Flow 10.00 L/M Vent Setting Inspired O2 % Critical Value Yes Sodium (136-145) meq/L Potassium (3.5-5.1) meq/L Chloride (98-107) meq/L Carbon Dioxide (21.0-32.0) meq/L Anion Gap (5-15) meq/L BUN (7-18) mg/dL Creatinine (0.60-1.30) mg/dL Estimated GFR (>89) mL/min POC Glucose (68-110) mg/dl Random Glucose (74-106) mg/dL Lactic Acid 5.6 H* (0.4-2.0) mmol/L Calcium (8.5-10.1) mg/dL Prot Corrected Calcium (8.5-10.1) mg/dL Phosphorus (2.5-4.9) mg/dL Magnesium (1.5-2.5) mg/dL Total Bilirubin (0.2-1.0) mg/dL AST (15-37) U/L ALT (12-78) U/L Alkaline Phosphatase (45-117) U/L Total Creatine Kinase (39-308) U/L Troponin I (0.02-0.05) ng/mL B-Natriuretic Peptide (0-100) pg/mL Total Protein (6.4-8.2) g/dL Albumin (3.4-5.0) g/dL TSH (0.358-3.740) uIU/mL Urine Color [place] (Yellw/Straw) Urine Clarity Turbid H (Clear) Urine pH 5.0 (5.0-8.5) Ur Specific [place] 1.016 (1.002-1.035) Urine Protein 30 H (Neg-Trace) mg/dL Urine Glucose (UA) Negative (Negative) mg/dL Urine Ketones Negative (Negative) mg/dL Urine Occult Blood Large H (Negative) Urine Nitrate Negative (Negative) Urine Bilirubin Negative (Negative) Urine Urobilinogen Less than 2 (Less than 2) mg/dL Ur Leukocyte Esterase Large H (Negative) Urine RBC 136 H (0-3) /hpf Urine WBC (0-5) /hpf Urine WBC Clumps Moderate H (None) Hyaline Casts 9 (0-3) /lpf Urine Mucus Few H (Occasional) /lpf Micro UA Comment Cath-culture ind Ur Microscopic Review Not Reportable Urine Culture Comments Cath-cult indicated Nasal Screen MRSA (PCR) (Negative) Vancomycin Trough (5.0-10.0) mcg/mL Random Vancomycin Comment Blood Type Antibody Screen MTS Gel Crossmatch 08/18/18 08/18/18 08/18/18 Range/Units 06:36 08:18 12:00 WBC (4.0-11.0) th/mm3 RBC (4.50-5.90) mil/mm3 Hgb (13.0-17.0) gm/dL Hct (39.0-51.0) % MCV (80.0-100.0) fL MCH (27.0-34.0) pg MCHC (32.0-36.0) % RDW (11.6-17.2) % Plt Count (150-450) th/mm3 MPV (7.0-11.0) fL Prelim Diff (Auto) Neut % (Auto) (16.0-70.0) % Lymph % (Auto) (9.0-44.0) % Power % (Auto) (0.0-8.0) % Eos % (Auto) (0.0-4.0) % Baso % (Auto) (0.0-2.0) % Neut # (Auto) (1.8-7.7) th/mm3 Lymph # (Auto) (1.0-4.8) th/mm3 Power # (Auto) (0.0-0.9) th/mm3 Eos # (Auto) (0.0-0.4) th/mm3 Baso # (Auto) (0.0-0.2) th/mm3 WBC Differential Diff Scan Seg Neuts % (Manual) (16-70) % Band Neuts % (Manual) (0-6) % Lymphocytes % (Manual) (9-44) % Monocytes % (Manual) (0-8) % Eosinophils % (Manual) (0-4) % Basophils % (Manual) (0-2) % Metamyelocytes % (Man) (0-1) % Myelocytes % (Man) (0-0) % Promyelocytes % (Man) (0-0) % Abs Neuts (Manual) (1.8-7.7) th/mm3 Nucleated RBCs/100 WBC (0-0) /100 WBC Differential Comment Toxic Granulation (None) Toxic Vacuolation (None) Dohle Bodies (None) Platelet Estimate (Normal) Platelet Morphology (Normal) Target Cells (None) Tear Drop Cells (None) Ovalocytes (None) Acanthocytes (Spur) (None) Keratocytes (None) PT (9.8-11.6) sec INR Ratio APTT (24.3-30.1) sec Puncture Site Patient Temperature O2 Saturation (90-100) % ABG pH (7.380-7.420) ABG pCO2 (38-42) mmHg ABG pO2 (61-120) mmHg ABG HCO3 (22-26) mmol/L ABG O2 Content (12.0-20.0) Vol % ABG Base Excess (-2-2) mmol/L ABG Methemoglobin (0-2) % Adrian Test Hemoglobin (12.0-16.0) G/DL Carboxyhemoglobin (0-4) % O2 Delivery Device Liter Flow L/M Vent Setting Inspired O2 % Critical Value Sodium (136-145) meq/L Potassium (3.5-5.1) meq/L Chloride (98-107) meq/L Carbon Dioxide (21.0-32.0) meq/L Anion Gap (5-15) meq/L BUN (7-18) mg/dL Creatinine (0.60-1.30) mg/dL Estimated GFR (>89) mL/min POC Glucose 250 H 219 H (68-110) mg/dl Random Glucose (74-106) mg/dL Lactic Acid (0.4-2.0) mmol/L Calcium (8.5-10.1) mg/dL Prot Corrected Calcium (8.5-10.1) mg/dL Phosphorus (2.5-4.9) mg/dL Magnesium (1.5-2.5) mg/dL Total Bilirubin (0.2-1.0) mg/dL AST (15-37) U/L ALT (12-78) U/L Alkaline Phosphatase (45-117) U/L Total Creatine Kinase (39-308) U/L Troponin I (0.02-0.05) ng/mL B-Natriuretic Peptide (0-100) pg/mL Total Protein (6.4-8.2) g/dL Albumin (3.4-5.0) g/dL TSH (0.358-3.740) uIU/mL Urine Color (Yellw/Straw) Urine Clarity (Clear) Urine pH (5.0-8.5) Ur Specific [place] (1.002-1.035) Urine Protein (Neg-Trace) mg/dL Urine Glucose (UA) (Negative) mg/dL Urine Ketones (Negative) mg/dL Urine Occult Blood (Negative) Urine Nitrate (Negative) Urine Bilirubin (Negative) Urine Urobilinogen (Less than 2) mg/dL Ur Leukocyte Esterase (Negative) Urine RBC (0-3) /hpf Urine WBC (0-5) /hpf Urine WBC Clumps (None) Hyaline Casts (0-3) /lpf Urine Mucus (Occasional) /lpf Micro UA Comment Ur Microscopic Review Urine Culture Comments Nasal Screen MRSA (PCR) Mrsa detected (Negative) Vancomycin Trough (5.0-10.0) mcg/mL Random Vancomycin Comment Blood Type Antibody Screen MTS Gel Crossmatch 08/18/18 08/18/18 08/18/18 Range/Units 12:58 12:58 18:50 WBC (4.0-11.0) th/mm3 RBC (4.50-5.90) mil/mm3 Hgb (13.0-17.0) gm/dL Hct (39.0-51.0) % MCV (80.0-100.0) fL MCH (27.0-34.0) pg MCHC (32.0-36.0) % RDW (11.6-17.2) % Plt Count (150-450) th/mm3 MPV (7.0-11.0) fL Prelim Diff (Auto) Neut % (Auto) (16.0-70.0) % Lymph % (Auto) (9.0-44.0) % Power % (Auto) (0.0-8.0) % Eos % (Auto) (0.0-4.0) % Baso % (Auto) (0.0-2.0) % Neut # (Auto) (1.8-7.7) th/mm3 Lymph # (Auto) (1.0-4.8) th/mm3 Power # (Auto) (0.0-0.9) th/mm3 Eos # (Auto) (0.0-0.4) th/mm3 Baso # (Auto) (0.0-0.2) th/mm3 WBC Differential Diff Scan Seg Neuts % (Manual) (16-70) % Band Neuts % (Manual) (0-6) % Lymphocytes % (Manual) (9-44) % Monocytes % (Manual) (0-8) % Eosinophils % (Manual) (0-4) % Basophils % (Manual) (0-2) % Metamyelocytes % (Man) (0-1) % Myelocytes % (Man) (0-0) % Promyelocytes % (Man) (0-0) % Abs Neuts (Manual) (1.8-7.7) th/mm3 Nucleated RBCs/100 WBC (0-0) /100 WBC Differential Comment Toxic Granulation (None) Toxic Vacuolation (None) Dohle Bodies (None) Platelet Estimate (Normal) Platelet Morphology (Normal) Target Cells (None) Tear Drop Cells (None) Ovalocytes (None) Acanthocytes (Spur) (None) Keratocytes (None) PT (9.8-11.6) sec INR Ratio APTT (24.3-30.1) sec Puncture Site Patient Temperature O2 Saturation (90-100) % ABG pH (7.380-7.420) ABG pCO2 (38-42) mmHg ABG pO2 (61-120) mmHg ABG HCO3 (22-26) mmol/L ABG O2 Content (12.0-20.0) Vol % ABG Base Excess (-2-2) mmol/L ABG Methemoglobin (0-2) % Adrian Test Hemoglobin (12.0-16.0) G/DL Carboxyhemoglobin (0-4) % O2 Delivery Device Liter Flow L/M Vent Setting Inspired O2 % Critical Value Sodium 138 (136-145) meq/L Potassium 4.7 D (3.5-5.1) meq/L Chloride 107 D (98-107) meq/L Carbon Dioxide 24.3 (21.0-32.0) meq/L Anion Gap 7 (5-15) meq/L BUN 51 H (7-18) mg/dL Creatinine 1.25 (0.60-1.30) mg/dL Estimated GFR 71 L (>89) mL/min POC Glucose 50 L (68-110) mg/dl Random Glucose 183 H (74-106) mg/dL Lactic Acid 2.7 H (0.4-2.0) mmol/L Calcium 7.4 L* D (8.5-10.1) mg/dL Prot Corrected Calcium 8.1 L (8.5-10.1) mg/dL Phosphorus (2.5-4.9) mg/dL Magnesium (1.5-2.5) mg/dL Total Bilirubin (0.2-1.0) mg/dL AST (15-37) U/L ALT (12-78) U/L Alkaline Phosphatase (45-117) U/L Total Creatine Kinase (39-308) U/L Troponin I (0.02-0.05) ng/mL B-Natriuretic Peptide (0-100) pg/mL Total Protein 5.9 L D (6.4-8.2) g/dL Albumin (3.4-5.0) g/dL TSH (0.358-3.740) uIU/mL Urine Color (Yellw/Straw) Urine Clarity (Clear) Urine pH (5.0-8.5) Ur Specific [place] (1.002-1.035) Urine Protein (Neg-Trace) mg/dL Urine Glucose (UA) (Negative) mg/dL Urine Ketones (Negative) mg/dL Urine Occult Blood (Negative) Urine Nitrate (Negative) Urine Bilirubin (Negative) Urine Urobilinogen (Less than 2) mg/dL Ur Leukocyte Esterase (Negative) Urine RBC (0-3) /hpf Urine WBC (0-5) /hpf Urine WBC Clumps (None) Hyaline Casts (0-3) /lpf Urine Mucus (Occasional) /lpf Micro UA Comment Ur Microscopic Review Urine Culture Comments Nasal Screen MRSA (PCR) (Negative) Vancomycin Trough (5.0-10.0) mcg/mL Random Vancomycin Comment Blood Type Antibody Screen MTS Gel Crossmatch 08/18/18 08/18/18 08/18/18 Range/Units 18:58 19:19 19:33 WBC (4.0-11.0) th/mm3 RBC (4.50-5.90) mil/mm3 Hgb (13.0-17.0) gm/dL Hct (39.0-51.0) % MCV (80.0-100.0) fL MCH (27.0-34.0) pg MCHC (32.0-36.0) % RDW (11.6-17.2) % Plt Count (150-450) th/mm3 MPV (7.0-11.0) fL Prelim Diff (Auto) Neut % (Auto) (16.0-70.0) % Lymph % (Auto) (9.0-44.0) % Power % (Auto) (0.0-8.0) % Eos % (Auto) (0.0-4.0) % Baso % (Auto) (0.0-2.0) % Neut # (Auto) (1.8-7.7) th/mm3 Lymph # (Auto) (1.0-4.8) th/mm3 Power # (Auto) (0.0-0.9) th/mm3 Eos # (Auto) (0.0-0.4) th/mm3 Baso # (Auto) (0.0-0.2) th/mm3 WBC Differential Diff Scan Seg Neuts % (Manual) (16-70) % Band Neuts % (Manual) (0-6) % Lymphocytes % (Manual) (9-44) % Monocytes % (Manual) (0-8) % Eosinophils % (Manual) (0-4) % Basophils % (Manual) (0-2) % Metamyelocytes % (Man) (0-1) % Myelocytes % (Man) (0-0) % Promyelocytes % (Man) (0-0) % Abs Neuts (Manual) (1.8-7.7) th/mm3 Nucleated RBCs/100 WBC (0-0) /100 WBC Differential Comment Toxic Granulation (None) Toxic Vacuolation (None) Dohle Bodies (None) Platelet Estimate (Normal) Platelet Morphology (Normal) Target Cells (None) Tear Drop Cells (None) Ovalocytes (None) Acanthocytes (Spur) (None) Keratocytes (None) PT (9.8-11.6) sec INR Ratio APTT (24.3-30.1) sec Puncture Site Patient Temperature O2 Saturation (90-100) % ABG pH (7.380-7.420) ABG pCO2 (38-42) mmHg ABG pO2 (61-120) mmHg ABG HCO3 (22-26) mmol/L ABG O2 Content (12.0-20.0) Vol % ABG Base Excess (-2-2) mmol/L ABG Methemoglobin (0-2) % Adrian Test Hemoglobin (12.0-16.0) G/DL Carboxyhemoglobin (0-4) % O2 Delivery Device Liter Flow L/M Vent Setting Inspired O2 % Critical Value Sodium (136-145) meq/L Potassium (3.5-5.1) meq/L Chloride (98-107) meq/L Carbon Dioxide (21.0-32.0) meq/L Anion Gap (5-15) meq/L BUN (7-18) mg/dL Creatinine (0.60-1.30) mg/dL Estimated GFR (>89) mL/min POC Glucose 49 L* 41 L* 218 H (68-110) mg/dl Random Glucose (74-106) mg/dL Lactic Acid (0.4-2.0) mmol/L Calcium (8.5-10.1) mg/dL Prot Corrected Calcium (8.5-10.1) mg/dL Phosphorus (2.5-4.9) mg/dL Magnesium (1.5-2.5) mg/dL Total Bilirubin (0.2-1.0) mg/dL AST (15-37) U/L ALT (12-78) U/L Alkaline Phosphatase (45-117) U/L Total Creatine Kinase (39-308) U/L Troponin I (0.02-0.05) ng/mL B-Natriuretic Peptide (0-100) pg/mL Total Protein (6.4-8.2) g/dL Albumin (3.4-5.0) g/dL TSH (0.358-3.740) uIU/mL Urine Color (Yellw/Straw) Urine Clarity (Clear) Urine pH (5.0-8.5) Ur Specific [place] (1.002-1.035) Urine Protein (Neg-Trace) mg/dL Urine Glucose (UA) (Negative) mg/dL Urine Ketones (Negative) mg/dL Urine Occult Blood (Negative) Urine Nitrate (Negative) Urine Bilirubin (Negative) Urine Urobilinogen (Less than 2) mg/dL Ur Leukocyte Esterase (Negative) Urine RBC (0-3) /hpf Urine WBC (0-5) /hpf Urine WBC Clumps (None) Hyaline Casts (0-3) /lpf Urine Mucus (Occasional) /lpf Micro UA Comment Ur Microscopic Review Urine Culture Comments Nasal Screen MRSA (PCR) (Negative) Vancomycin Trough (5.0-10.0) mcg/mL Random Vancomycin Comment Blood Type Antibody Screen MTS Gel Crossmatch 08/18/18 08/18/18 08/18/18 Range/Units 19:45 21:00 22:15 WBC (4.0-11.0) th/mm3 RBC (4.50-5.90) mil/mm3 Hgb (13.0-17.0) gm/dL Hct (39.0-51.0) % MCV (80.0-100.0) fL MCH (27.0-34.0) pg MCHC (32.0-36.0) % RDW (11.6-17.2) % Plt Count (150-450) th/mm3 MPV (7.0-11.0) fL Prelim Diff (Auto) Neut % (Auto) (16.0-70.0) % Lymph % (Auto) (9.0-44.0) % Power % (Auto) (0.0-8.0) % Eos % (Auto) (0.0-4.0) % Baso % (Auto) (0.0-2.0) % Neut # (Auto) (1.8-7.7) th/mm3 Lymph # (Auto) (1.0-4.8) th/mm3 Power # (Auto) (0.0-0.9) th/mm3 Eos # (Auto) (0.0-0.4) th/mm3 Baso # (Auto) (0.0-0.2) th/mm3 WBC Differential Diff Scan Seg Neuts % (Manual) (16-70) % Band Neuts % (Manual) (0-6) % Lymphocytes % (Manual) (9-44) % Monocytes % (Manual) (0-8) % Eosinophils % (Manual) (0-4) % Basophils % (Manual) (0-2) % Metamyelocytes % (Man) (0-1) % Myelocytes % (Man) (0-0) % Promyelocytes % (Man) (0-0) % Abs Neuts (Manual) (1.8-7.7) th/mm3 Nucleated RBCs/100 WBC (0-0) /100 WBC Differential Comment Toxic Granulation (None) Toxic Vacuolation (None) Dohle Bodies (None) Platelet Estimate (Normal) Platelet Morphology (Normal) Target Cells (None) Tear Drop Cells (None) Ovalocytes (None) Acanthocytes (Spur) (None) Keratocytes (None) PT (9.8-11.6) sec INR Ratio APTT (24.3-30.1) sec Puncture Site Patient Temperature O2 Saturation (90-100) % ABG pH (7.380-7.420) ABG pCO2 (38-42) mmHg ABG pO2 (61-120) mmHg ABG HCO3 (22-26) mmol/L ABG O2 Content (12.0-20.0) Vol % ABG Base Excess (-2-2) mmol/L ABG Methemoglobin (0-2) % Adrian Test Hemoglobin (12.0-16.0) G/DL Carboxyhemoglobin (0-4) % O2 Delivery Device Liter Flow L/M Vent Setting Inspired O2 % Critical Value Sodium (136-145) meq/L Potassium (3.5-5.1) meq/L Chloride (98-107) meq/L Carbon Dioxide (21.0-32.0) meq/L Anion Gap (5-15) meq/L BUN (7-18) mg/dL Creatinine (0.60-1.30) mg/dL Estimated GFR (>89) mL/min POC Glucose 110 66 L (68-110) mg/dl Random Glucose 137 H (74-106) mg/dL Lactic Acid (0.4-2.0) mmol/L Calcium (8.5-10.1) mg/dL Prot Corrected Calcium (8.5-10.1) mg/dL Phosphorus (2.5-4.9) mg/dL Magnesium (1.5-2.5) mg/dL Total Bilirubin (0.2-1.0) mg/dL AST (15-37) U/L ALT (12-78) U/L Alkaline Phosphatase (45-117) U/L Total Creatine Kinase (39-308) U/L Troponin I (0.02-0.05) ng/mL B-Natriuretic Peptide (0-100) pg/mL Total Protein (6.4-8.2) g/dL Albumin (3.4-5.0) g/dL TSH (0.358-3.740) uIU/mL Urine Color (Yellw/Straw) Urine Clarity (Clear) Urine pH (5.0-8.5) Ur Specific [place] (1.002-1.035) Urine Protein (Neg-Trace) mg/dL Urine Glucose (UA) (Negative) mg/dL Urine Ketones (Negative) mg/dL Urine Occult Blood (Negative) Urine Nitrate (Negative) Urine Bilirubin (Negative) Urine Urobilinogen (Less than 2) mg/dL Ur Leukocyte Esterase (Negative) Urine RBC (0-3) /hpf Urine WBC (0-5) /hpf Urine WBC Clumps (None) Hyaline Casts (0-3) /lpf Urine Mucus (Occasional) /lpf Micro UA Comment Ur Microscopic Review Urine Culture Comments Nasal Screen MRSA (PCR) (Negative) Vancomycin Trough (5.0-10.0) mcg/mL Random Vancomycin Comment Blood Type Antibody Screen MTS Gel Crossmatch 08/18/18 08/18/18 08/19/18 Range/Units 22:33 23:50 02:37 WBC (4.0-11.0) th/mm3 RBC (4.50-5.90) mil/mm3 Hgb (13.0-17.0) gm/dL Hct (39.0-51.0) % MCV (80.0-100.0) fL MCH (27.0-34.0) pg MCHC (32.0-36.0) % RDW (11.6-17.2) % Plt Count (150-450) th/mm3 MPV (7.0-11.0) fL Prelim Diff (Auto) Neut % (Auto) (16.0-70.0) % Lymph % (Auto) (9.0-44.0) % Power % (Auto) (0.0-8.0) % Eos % (Auto) (0.0-4.0) % Baso % (Auto) (0.0-2.0) % Neut # (Auto) (1.8-7.7) th/mm3 Lymph # (Auto) (1.0-4.8) th/mm3 Power # (Auto) (0.0-0.9) th/mm3 Eos # (Auto) (0.0-0.4) th/mm3 Baso # (Auto) (0.0-0.2) th/mm3 WBC Differential Diff Scan Seg Neuts % (Manual) (16-70) % Band Neuts % (Manual) (0-6) % Lymphocytes % (Manual) (9-44) % Monocytes % (Manual) (0-8) % Eosinophils % (Manual) (0-4) % Basophils % (Manual) (0-2) % Metamyelocytes % (Man) (0-1) % Myelocytes % (Man) (0-0) % Promyelocytes % (Man) (0-0) % Abs Neuts (Manual) (1.8-7.7) th/mm3 Nucleated RBCs/100 WBC (0-0) /100 WBC Differential Comment Toxic Granulation (None) Toxic Vacuolation (None) Dohle Bodies (None) Platelet Estimate (Normal) Platelet Morphology (Normal) Target Cells (None) Tear Drop Cells (None) Ovalocytes (None) Acanthocytes (Spur) (None) Keratocytes (None) PT (9.8-11.6) sec INR Ratio APTT (24.3-30.1) sec Puncture Site Patient Temperature O2 Saturation (90-100) % ABG pH (7.380-7.420) ABG pCO2 (38-42) mmHg ABG pO2 (61-120) mmHg ABG HCO3 (22-26) mmol/L ABG O2 Content (12.0-20.0) Vol % ABG Base Excess (-2-2) mmol/L ABG Methemoglobin (0-2) % Adrian Test Hemoglobin (12.0-16.0) G/DL Carboxyhemoglobin (0-4) % O2 Delivery Device Liter Flow L/M Vent Setting Inspired O2 % Critical Value Sodium (136-145) meq/L Potassium (3.5-5.1) meq/L Chloride (98-107) meq/L Carbon Dioxide (21.0-32.0) meq/L Anion Gap (5-15) meq/L BUN (7-18) mg/dL Creatinine (0.60-1.30) mg/dL Estimated GFR (>89) mL/min POC Glucose 158 H 106 53 L (68-110) mg/dl Random Glucose (74-106) mg/dL Lactic Acid (0.4-2.0) mmol/L Calcium (8.5-10.1) mg/dL Prot Corrected Calcium (8.5-10.1) mg/dL Phosphorus (2.5-4.9) mg/dL Magnesium (1.5-2.5) mg/dL Total Bilirubin (0.2-1.0) mg/dL AST (15-37) U/L ALT (12-78) U/L Alkaline Phosphatase (45-117) U/L Total Creatine Kinase (39-308) U/L Troponin I (0.02-0.05) ng/mL B-Natriuretic Peptide (0-100) pg/mL Total Protein (6.4-8.2) g/dL Albumin (3.4-5.0) g/dL TSH (0.358-3.740) uIU/mL Urine Color (Yellw/Straw) Urine Clarity (Clear) Urine pH (5.0-8.5) Ur Specific [place] (1.002-1.035) Urine Protein (Neg-Trace) mg/dL Urine Glucose (UA) (Negative) mg/dL Urine Ketones (Negative) mg/dL Urine Occult Blood (Negative) Urine Nitrate (Negative) Urine Bilirubin (Negative) Urine Urobilinogen (Less than 2) mg/dL Ur Leukocyte Esterase (Negative) Urine RBC (0-3) /hpf Urine WBC (0-5) /hpf Urine WBC Clumps (None) Hyaline Casts (0-3) /lpf Urine Mucus (Occasional) /lpf Micro UA Comment Ur Microscopic Review Urine Culture Comments Nasal Screen MRSA (PCR) (Negative) Vancomycin Trough (5.0-10.0) mcg/mL Random Vancomycin Comment Blood Type Antibody Screen MTS Gel Crossmatch 08/19/18 08/19/18 08/19/18 Range/Units 03:11 04:03 04:03 WBC 24.1 H (4.0-11.0) th/mm3 RBC 2.04 L (4.50-5.90) mil/mm3 Hgb 5.6 L* D (13.0-17.0) gm/dL Hct 17.2 L* (39.0-51.0) % MCV 84.0 (80.0-100.0) fL MCH 27.5 (27.0-34.0) pg MCHC 32.8 (32.0-36.0) % RDW 16.9 (11.6-17.2) % Plt Count 321 (150-450) th/mm3 MPV 8.6 (7.0-11.0) fL Prelim Diff (Auto) Slide review pending Neut % (Auto) 89.8 H (16.0-70.0) % Lymph % (Auto) 3.0 L (9.0-44.0) % Power % (Auto) 5.8 (0.0-8.0) % Eos % (Auto) 1.0 (0.0-4.0) % Baso % (Auto) 0.4 (0.0-2.0) % Neut # (Auto) 21.7 H (1.8-7.7) th/mm3 Lymph # (Auto) 0.7 L (1.0-4.8) th/mm3 Power # (Auto) 1.4 H (0.0-0.9) th/mm3 Eos # (Auto) 0.2 (0.0-0.4) th/mm3 Baso # (Auto) 0.1 (0.0-0.2) th/mm3 WBC Differential Manual diff final Diff Scan Seg Neuts % (Manual) 70 (16-70) % Band Neuts % (Manual) 19 H (0-6) % Lymphocytes % (Manual) 5 L (9-44) % Monocytes % (Manual) 3 (0-8) % Eosinophils % (Manual) 2 (0-4) % Basophils % (Manual) 1 (0-2) % Metamyelocytes % (Man) (0-1) % Myelocytes % (Man) (0-0) % Promyelocytes % (Man) (0-0) % Abs Neuts (Manual) 21.4 H (1.8-7.7) th/mm3 Nucleated RBCs/100 WBC (0-0) /100 WBC Differential Comment . Toxic Granulation 1+ H (None) Toxic Vacuolation (None) Dohle Bodies (None) Platelet Estimate (Normal) Platelet Morphology Normal (Normal) Target Cells 1+ H (None) Tear Drop Cells (None) Ovalocytes (None) Acanthocytes (Spur) Occ H (None) Keratocytes Occ H (None) PT 12.3 H (9.8-11.6) sec INR 1.2 Ratio APTT 28.5 (24.3-30.1) sec Puncture Site Patient Temperature O2 Saturation (90-100) % ABG pH (7.380-7.420) ABG pCO2 (38-42) mmHg ABG pO2 (61-120) mmHg ABG HCO3 (22-26) mmol/L ABG O2 Content (12.0-20.0) Vol % ABG Base Excess (-2-2) mmol/L ABG Methemoglobin (0-2) % Adrian Test Hemoglobin (12.0-16.0) G/DL Carboxyhemoglobin (0-4) % O2 Delivery Device Liter Flow L/M Vent Setting Inspired O2 % Critical Value Sodium (136-145) meq/L Potassium (3.5-5.1) meq/L Chloride (98-107) meq/L Carbon Dioxide (21.0-32.0) meq/L Anion Gap (5-15) meq/L BUN (7-18) mg/dL Creatinine (0.60-1.30) mg/dL Estimated GFR (>89) mL/min POC Glucose 134 H (68-110) mg/dl Random Glucose (74-106) mg/dL Lactic Acid (0.4-2.0) mmol/L Calcium (8.5-10.1) mg/dL Prot Corrected Calcium (8.5-10.1) mg/dL Phosphorus (2.5-4.9) mg/dL Magnesium (1.5-2.5) mg/dL Total Bilirubin (0.2-1.0) mg/dL AST (15-37) U/L ALT (12-78) U/L Alkaline Phosphatase (45-117) U/L Total Creatine Kinase (39-308) U/L Troponin I (0.02-0.05) ng/mL B-Natriuretic Peptide (0-100) pg/mL Total Protein (6.4-8.2) g/dL Albumin (3.4-5.0) g/dL TSH (0.358-3.740) uIU/mL Urine Color (Yellw/Straw) Urine Clarity (Clear) Urine pH (5.0-8.5) Ur Specific [place] (1.002-1.035) Urine Protein (Neg-Trace) mg/dL Urine Glucose (UA) (Negative) mg/dL Urine Ketones (Negative) mg/dL Urine Occult Blood (Negative) Urine Nitrate (Negative) Urine Bilirubin (Negative) Urine Urobilinogen (Less than 2) mg/dL Ur Leukocyte Esterase (Negative) Urine RBC (0-3) /hpf Urine WBC (0-5) /hpf Urine WBC Clumps (None) Hyaline Casts (0-3) /lpf Urine Mucus (Occasional) /lpf Micro UA Comment Ur Microscopic Review Urine Culture Comments Nasal Screen MRSA (PCR) (Negative) Vancomycin Trough (5.0-10.0) mcg/mL Random Vancomycin Comment Blood Type Antibody Screen MTS Gel Crossmatch 08/19/18 08/19/18 08/19/18 Range/Units 04:03 04:05 05:30 WBC (4.0-11.0) th/mm3 RBC (4.50-5.90) mil/mm3 Hgb (13.0-17.0) gm/dL Hct (39.0-51.0) % MCV (80.0-100.0) fL MCH (27.0-34.0) pg MCHC (32.0-36.0) % RDW (11.6-17.2) % Plt Count (150-450) th/mm3 MPV (7.0-11.0) fL Prelim Diff (Auto) Neut % (Auto) (16.0-70.0) % Lymph % (Auto) (9.0-44.0) % Power % (Auto) (0.0-8.0) % Eos % (Auto) (0.0-4.0) % Baso % (Auto) (0.0-2.0) % Neut # (Auto) (1.8-7.7) th/mm3 Lymph # (Auto) (1.0-4.8) th/mm3 Power # (Auto) (0.0-0.9) th/mm3 Eos # (Auto) (0.0-0.4) th/mm3 Baso # (Auto) (0.0-0.2) th/mm3 WBC Differential Diff Scan Seg Neuts % (Manual) (16-70) % Band Neuts % (Manual) (0-6) % Lymphocytes % (Manual) (9-44) % Monocytes % (Manual) (0-8) % Eosinophils % (Manual) (0-4) % Basophils % (Manual) (0-2) % Metamyelocytes % (Man) (0-1) % Myelocytes % (Man) (0-0) % Promyelocytes % (Man) (0-0) % Abs Neuts (Manual) (1.8-7.7) th/mm3 Nucleated RBCs/100 WBC (0-0) /100 WBC Differential Comment Toxic Granulation (None) Toxic Vacuolation (None) Dohle Bodies (None) Platelet Estimate (Normal) Platelet Morphology (Normal) Target Cells (None) Tear Drop Cells (None) Ovalocytes (None) Acanthocytes (Spur) (None) Keratocytes (None) PT (9.8-11.6) sec INR Ratio APTT (24.3-30.1) sec Puncture Site Patient Temperature O2 Saturation (90-100) % ABG pH (7.380-7.420) ABG pCO2 (38-42) mmHg ABG pO2 (61-120) mmHg ABG HCO3 (22-26) mmol/L ABG O2 Content (12.0-20.0) Vol % ABG Base Excess (-2-2) mmol/L ABG Methemoglobin (0-2) % Adrian Test Hemoglobin (12.0-16.0) G/DL Carboxyhemoglobin (0-4) % O2 Delivery Device Liter Flow L/M Vent Setting Inspired O2 % Critical Value Sodium 139 (136-145) meq/L Potassium 4.8 (3.5-5.1) meq/L Chloride 110 H (98-107) meq/L Carbon Dioxide 21.5 (21.0-32.0) meq/L Anion Gap 8 (5-15) meq/L BUN 27 H (7-18) mg/dL Creatinine 0.82 (0.60-1.30) mg/dL Estimated GFR Greater than 89 (>89) mL/min POC Glucose (68-110) mg/dl Random Glucose 87 (74-106) mg/dL Lactic Acid (0.4-2.0) mmol/L Calcium 7.9 L (8.5-10.1) mg/dL Prot Corrected Calcium (8.5-10.1) mg/dL Phosphorus 1.9 L (2.5-4.9) mg/dL Magnesium 2.2 D (1.5-2.5) mg/dL Total Bilirubin 0.3 (0.2-1.0) mg/dL AST 36 (15-37) U/L ALT 28 (12-78) U/L Alkaline Phosphatase 89 (45-117) U/L Total Creatine Kinase (39-308) U/L Troponin I (0.02-0.05) ng/mL B-Natriuretic Peptide 223 H (0-100) pg/mL Total Protein 6.3 L (6.4-8.2) g/dL Albumin 1.8 L D (3.4-5.0) g/dL TSH (0.358-3.740) uIU/mL Urine Color (Yellw/Straw) Urine Clarity (Clear) Urine pH (5.0-8.5) Ur Specific [place] (1.002-1.035) Urine Protein (Neg-Trace) mg/dL Urine Glucose (UA) (Negative) mg/dL Urine Ketones (Negative) mg/dL Urine Occult Blood (Negative) Urine Nitrate (Negative) Urine Bilirubin (Negative) Urine Urobilinogen (Less than 2) mg/dL Ur Leukocyte Esterase (Negative) Urine RBC (0-3) /hpf Urine WBC (0-5) /hpf Urine WBC Clumps (None) Hyaline Casts (0-3) /lpf Urine Mucus (Occasional) /lpf Micro UA Comment Ur Microscopic Review Urine Culture Comments Nasal Screen MRSA (PCR) (Negative) Vancomycin Trough (5.0-10.0) mcg/mL Random Vancomycin 4.8 Comment Blood Type O Positive Antibody Screen Negative MTS Gel Crossmatch See Detail 08/19/18 08/19/18 08/19/18 Range/Units 07:08 07:55 12:15 WBC (4.0-11.0) th/mm3 RBC (4.50-5.90) mil/mm3 Hgb (13.0-17.0) gm/dL Hct (39.0-51.0) % MCV (80.0-100.0) fL MCH (27.0-34.0) pg MCHC (32.0-36.0) % RDW (11.6-17.2) % Plt Count (150-450) th/mm3 MPV (7.0-11.0) fL Prelim Diff (Auto) Neut % (Auto) (16.0-70.0) % Lymph % (Auto) (9.0-44.0) % Power % (Auto) (0.0-8.0) % Eos % (Auto) (0.0-4.0) % Baso % (Auto) (0.0-2.0) % Neut # (Auto) (1.8-7.7) th/mm3 Lymph # (Auto) (1.0-4.8) th/mm3 Power # (Auto) (0.0-0.9) th/mm3 Eos # (Auto) (0.0-0.4) th/mm3 Baso # (Auto) (0.0-0.2) th/mm3 WBC Differential Diff Scan Seg Neuts % (Manual) (16-70) % Band Neuts % (Manual) (0-6) % Lymphocytes % (Manual) (9-44) % Monocytes % (Manual) (0-8) % Eosinophils % (Manual) (0-4) % Basophils % (Manual) (0-2) % Metamyelocytes % (Man) (0-1) % Myelocytes % (Man) (0-0) % Promyelocytes % (Man) (0-0) % Abs Neuts (Manual) (1.8-7.7) th/mm3 Nucleated RBCs/100 WBC (0-0) /100 WBC Differential Comment Toxic Granulation (None) Toxic Vacuolation (None) Dohle Bodies (None) Platelet Estimate (Normal) Platelet Morphology (Normal) Target Cells (None) Tear Drop Cells (None) Ovalocytes (None) Acanthocytes (Spur) (None) Keratocytes (None) PT (9.8-11.6) sec INR Ratio APTT (24.3-30.1) sec Puncture Site Patient Temperature O2 Saturation (90-100) % ABG pH (7.380-7.420) ABG pCO2 (38-42) mmHg ABG pO2 (61-120) mmHg ABG HCO3 (22-26) mmol/L ABG O2 Content (12.0-20.0) Vol % ABG Base Excess (-2-2) mmol/L ABG Methemoglobin (0-2) % Adrian Test Hemoglobin (12.0-16.0) G/DL Carboxyhemoglobin (0-4) % O2 Delivery Device Liter Flow L/M Vent Setting Inspired O2 % Critical Value Sodium (136-145) meq/L Potassium (3.5-5.1) meq/L Chloride (98-107) meq/L Carbon Dioxide (21.0-32.0) meq/L Anion Gap (5-15) meq/L BUN (7-18) mg/dL Creatinine (0.60-1.30) mg/dL Estimated GFR (>89) mL/min POC Glucose 85 92 118 H (68-110) mg/dl Random Glucose (74-106) mg/dL Lactic Acid (0.4-2.0) mmol/L Calcium (8.5-10.1) mg/dL Prot Corrected Calcium (8.5-10.1) mg/dL Phosphorus (2.5-4.9) mg/dL Magnesium (1.5-2.5) mg/dL Total Bilirubin (0.2-1.0) mg/dL AST (15-37) U/L ALT (12-78) U/L Alkaline Phosphatase (45-117) U/L Total Creatine Kinase (39-308) U/L Troponin I (0.02-0.05) ng/mL B-Natriuretic Peptide (0-100) pg/mL Total Protein (6.4-8.2) g/dL Albumin (3.4-5.0) g/dL TSH (0.358-3.740) uIU/mL Urine Color (Yellw/Straw) Urine Clarity (Clear) Urine pH (5.0-8.5) Ur Specific [place] (1.002-1.035) Urine Protein (Neg-Trace) mg/dL Urine Glucose (UA) (Negative) mg/dL Urine Ketones (Negative) mg/dL Urine Occult Blood (Negative) Urine Nitrate (Negative) Urine Bilirubin (Negative) Urine Urobilinogen (Less than 2) mg/dL Ur Leukocyte Esterase (Negative) Urine RBC (0-3) /hpf Urine WBC (0-5) /hpf Urine WBC Clumps (None) Hyaline Casts (0-3) /lpf Urine Mucus (Occasional) /lpf Micro UA Comment Ur Microscopic Review Urine Culture Comments Nasal Screen MRSA (PCR) (Negative) Vancomycin Trough (5.0-10.0) mcg/mL Random Vancomycin Comment Blood Type Antibody Screen MTS Gel Crossmatch 08/19/18 08/20/18 08/20/18 Range/Units 18:17 01:04 03:51 WBC (4.0-11.0) th/mm3 RBC (4.50-5.90) mil/mm3 Hgb (13.0-17.0) gm/dL Hct (39.0-51.0) % MCV (80.0-100.0) fL MCH (27.0-34.0) pg MCHC (32.0-36.0) % RDW (11.6-17.2) % Plt Count (150-450) th/mm3 MPV (7.0-11.0) fL Prelim Diff (Auto) Neut % (Auto) (16.0-70.0) % Lymph % (Auto) (9.0-44.0) % Power % (Auto) (0.0-8.0) % Eos % (Auto) (0.0-4.0) % Baso % (Auto) (0.0-2.0) % Neut # (Auto) (1.8-7.7) th/mm3 Lymph # (Auto) (1.0-4.8) th/mm3 Power # (Auto) (0.0-0.9) th/mm3 Eos # (Auto) (0.0-0.4) th/mm3 Baso # (Auto) (0.0-0.2) th/mm3 WBC Differential Diff Scan Seg Neuts % (Manual) (16-70) % Band Neuts % (Manual) (0-6) % Lymphocytes % (Manual) (9-44) % Monocytes % (Manual) (0-8) % Eosinophils % (Manual) (0-4) % Basophils % (Manual) (0-2) % Metamyelocytes % (Man) (0-1) % Myelocytes % (Man) (0-0) % Promyelocytes % (Man) (0-0) % Abs Neuts (Manual) (1.8-7.7) th/mm3 Nucleated RBCs/100 WBC (0-0) /100 WBC Differential Comment Toxic Granulation (None) Toxic Vacuolation (None) Dohle Bodies (None) Platelet Estimate (Normal) Platelet Morphology (Normal) Target Cells (None) Tear Drop Cells (None) Ovalocytes (None) Acanthocytes (Spur) (None) Keratocytes (None) PT (9.8-11.6) sec INR Ratio APTT (24.3-30.1) sec Puncture Site Patient Temperature O2 Saturation (90-100) % ABG pH (7.380-7.420) ABG pCO2 (38-42) mmHg ABG pO2 (61-120) mmHg ABG HCO3 (22-26) mmol/L ABG O2 Content (12.0-20.0) Vol % ABG Base Excess (-2-2) mmol/L ABG Methemoglobin (0-2) % Adrian Test Hemoglobin (12.0-16.0) G/DL Carboxyhemoglobin (0-4) % O2 Delivery Device Liter Flow L/M Vent Setting Inspired O2 % Critical Value Sodium 141 (136-145) meq/L Potassium 3.8 D (3.5-5.1) meq/L Chloride 103 (98-107) meq/L Carbon Dioxide 27.0 (21.0-32.0) meq/L Anion Gap 11 (5-15) meq/L BUN 16 (7-18) mg/dL Creatinine 0.64 (0.60-1.30) mg/dL Estimated GFR Greater than 89 (>89) mL/min POC Glucose 138 H 148 H (68-110) mg/dl Random Glucose 165 H (74-106) mg/dL Lactic Acid (0.4-2.0) mmol/L Calcium 8.4 L (8.5-10.1) mg/dL Prot Corrected Calcium (8.5-10.1) mg/dL Phosphorus (2.5-4.9) mg/dL Magnesium (1.5-2.5) mg/dL Total Bilirubin (0.2-1.0) mg/dL AST (15-37) U/L ALT (12-78) U/L Alkaline Phosphatase (45-117) U/L Total Creatine Kinase (39-308) U/L Troponin I (0.02-0.05) ng/mL B-Natriuretic Peptide (0-100) pg/mL Total Protein (6.4-8.2) g/dL Albumin (3.4-5.0) g/dL TSH (0.358-3.740) uIU/mL Urine Color (Yellw/Straw) Urine Clarity (Clear) Urine pH (5.0-8.5) Ur Specific [place] (1.002-1.035) Urine Protein (Neg-Trace) mg/dL Urine Glucose (UA) (Negative) mg/dL Urine Ketones (Negative) mg/dL Urine Occult Blood (Negative) Urine Nitrate (Negative) Urine Bilirubin (Negative) Urine Urobilinogen (Less than 2) mg/dL Ur Leukocyte Esterase (Negative) Urine RBC (0-3) /hpf Urine WBC (0-5) /hpf Urine WBC Clumps (None) Hyaline Casts (0-3) /lpf Urine Mucus (Occasional) /lpf Micro UA Comment Ur Microscopic Review Urine Culture Comments Nasal Screen MRSA (PCR) (Negative) Vancomycin Trough (5.0-10.0) mcg/mL Random Vancomycin Comment Blood Type Antibody Screen MTS Gel Crossmatch 08/20/18 08/20/18 08/20/18 Range/Units 03:51 12:24 18:37 WBC 21.9 H (4.0-11.0) th/mm3 RBC 3.77 L (4.50-5.90) mil/mm3 Hgb 10.7 L D (13.0-17.0) gm/dL Hct 31.9 L (39.0-51.0) % MCV 84.7 (80.0-100.0) fL MCH 28.3 (27.0-34.0) pg MCHC 33.4 (32.0-36.0) % RDW 16.5 (11.6-17.2) % Plt Count 350 (150-450) th/mm3 MPV 8.8 (7.0-11.0) fL Prelim Diff (Auto) Neut % (Auto) 88.6 H (16.0-70.0) % Lymph % (Auto) 4.0 L (9.0-44.0) % Power % (Auto) 5.5 (0.0-8.0) % Eos % (Auto) 1.7 (0.0-4.0) % Baso % (Auto) 0.2 (0.0-2.0) % Neut # (Auto) 19.4 H (1.8-7.7) th/mm3 Lymph # (Auto) 0.9 L (1.0-4.8) th/mm3 Power # (Auto) 1.2 H (0.0-0.9) th/mm3 Eos # (Auto) 0.4 (0.0-0.4) th/mm3 Baso # (Auto) 0.0 (0.0-0.2) th/mm3 WBC Differential . Diff Scan Seg Neuts % (Manual) (16-70) % Band Neuts % (Manual) (0-6) % Lymphocytes % (Manual) (9-44) % Monocytes % (Manual) (0-8) % Eosinophils % (Manual) (0-4) % Basophils % (Manual) (0-2) % Metamyelocytes % (Man) (0-1) % Myelocytes % (Man) (0-0) % Promyelocytes % (Man) (0-0) % Abs Neuts (Manual) (1.8-7.7) th/mm3 Nucleated RBCs/100 WBC (0-0) /100 WBC Differential Comment Auto diff final Toxic Granulation (None) Toxic Vacuolation (None) Dohle Bodies (None) Platelet Estimate (Normal) Platelet Morphology (Normal) Target Cells (None) Tear Drop Cells (None) Ovalocytes (None) Acanthocytes (Spur) (None) Keratocytes (None) PT (9.8-11.6) sec INR Ratio APTT (24.3-30.1) sec Puncture Site Patient Temperature O2 Saturation (90-100) % ABG pH (7.380-7.420) ABG pCO2 (38-42) mmHg ABG pO2 (61-120) mmHg ABG HCO3 (22-26) mmol/L ABG O2 Content (12.0-20.0) Vol % ABG Base Excess (-2-2) mmol/L ABG Methemoglobin (0-2) % Adrian Test Hemoglobin (12.0-16.0) G/DL Carboxyhemoglobin (0-4) % O2 Delivery Device Liter Flow L/M Vent Setting Inspired O2 % Critical Value Sodium (136-145) meq/L Potassium (3.5-5.1) meq/L Chloride (98-107) meq/L Carbon Dioxide (21.0-32.0) meq/L Anion Gap (5-15) meq/L BUN (7-18) mg/dL Creatinine (0.60-1.30) mg/dL Estimated GFR (>89) mL/min POC Glucose 199 H 184 H (68-110) mg/dl Random Glucose (74-106) mg/dL Lactic Acid (0.4-2.0) mmol/L Calcium (8.5-10.1) mg/dL Prot Corrected Calcium (8.5-10.1) mg/dL Phosphorus (2.5-4.9) mg/dL Magnesium (1.5-2.5) mg/dL Total Bilirubin (0.2-1.0) mg/dL AST (15-37) U/L ALT (12-78) U/L Alkaline Phosphatase (45-117) U/L Total Creatine Kinase (39-308) U/L Troponin I (0.02-0.05) ng/mL B-Natriuretic Peptide (0-100) pg/mL Total Protein (6.4-8.2) g/dL Albumin (3.4-5.0) g/dL TSH (0.358-3.740) uIU/mL Urine Color (Yellw/Straw) Urine Clarity (Clear) Urine pH (5.0-8.5) Ur Specific [place] (1.002-1.035) Urine Protein (Neg-Trace) mg/dL Urine Glucose (UA) (Negative) mg/dL Urine Ketones (Negative) mg/dL Urine Occult Blood (Negative) Urine Nitrate (Negative) Urine Bilirubin (Negative) Urine Urobilinogen (Less than 2) mg/dL Ur Leukocyte Esterase (Negative) Urine RBC (0-3) /hpf Urine WBC (0-5) /hpf Urine WBC Clumps (None) Hyaline Casts (0-3) /lpf Urine Mucus (Occasional) /lpf Micro UA Comment Ur Microscopic Review Urine Culture Comments Nasal Screen MRSA (PCR) (Negative) Vancomycin Trough (5.0-10.0) mcg/mL Random Vancomycin Comment Blood Type Antibody Screen MTS Gel Crossmatch 08/21/18 08/21/18 08/21/18 Range/Units 00:29 05:50 05:50 WBC 19.5 H (4.0-11.0) th/mm3 RBC 3.76 L (4.50-5.90) mil/mm3 Hgb 10.8 L (13.0-17.0) gm/dL Hct 31.9 L (39.0-51.0) % MCV 84.9 (80.0-100.0) fL MCH 28.7 (27.0-34.0) pg MCHC 33.8 (32.0-36.0) % RDW 16.4 (11.6-17.2) % Plt Count 366 (150-450) th/mm3 MPV 8.6 (7.0-11.0) fL Prelim Diff (Auto) Slide review pending Neut % (Auto) 84.2 H (16.0-70.0) % Lymph % (Auto) 5.0 L (9.0-44.0) % Power % (Auto) 8.7 H (0.0-8.0) % Eos % (Auto) 1.4 (0.0-4.0) % Baso % (Auto) 0.7 (0.0-2.0) % Neut # (Auto) 16.4 H (1.8-7.7) th/mm3 Lymph # (Auto) 1.0 (1.0-4.8) th/mm3 Power # (Auto) 1.7 H (0.0-0.9) th/mm3 Eos # (Auto) 0.3 (0.0-0.4) th/mm3 Baso # (Auto) 0.1 (0.0-0.2) th/mm3 WBC Differential Manual diff final Diff Scan Seg Neuts % (Manual) 88 H (16-70) % Band Neuts % (Manual) 2 (0-6) % Lymphocytes % (Manual) 2 L (9-44) % Monocytes % (Manual) 5 (0-8) % Eosinophils % (Manual) 1 (0-4) % Basophils % (Manual) 1 (0-2) % Metamyelocytes % (Man) (0-1) % Myelocytes % (Man) (0-0) % Promyelocytes % (Man) 1 H (0-0) % Abs Neuts (Manual) 17.7 H (1.8-7.7) th/mm3 Nucleated RBCs/100 WBC (0-0) /100 WBC Differential Comment . Toxic Granulation (None) Toxic Vacuolation Present H (None) Dohle Bodies (None) Platelet Estimate Normal (Normal) Platelet Morphology Normal (Normal) Target Cells (None) Tear Drop Cells (None) Ovalocytes (None) Acanthocytes (Spur) (None) Keratocytes (None) PT (9.8-11.6) sec INR Ratio APTT (24.3-30.1) sec Puncture Site Patient Temperature O2 Saturation (90-100) % ABG pH (7.380-7.420) ABG pCO2 (38-42) mmHg ABG pO2 (61-120) mmHg ABG HCO3 (22-26) mmol/L ABG O2 Content (12.0-20.0) Vol % ABG Base Excess (-2-2) mmol/L ABG Methemoglobin (0-2) % Adrian Test Hemoglobin (12.0-16.0) G/DL Carboxyhemoglobin (0-4) % O2 Delivery Device Liter Flow L/M Vent Setting Inspired O2 % Critical Value Sodium 141 (136-145) meq/L Potassium 3.1 L (3.5-5.1) meq/L Chloride 104 (98-107) meq/L Carbon Dioxide 25.1 (21.0-32.0) meq/L Anion Gap 12 (5-15) meq/L BUN 10 (7-18) mg/dL Creatinine 0.55 L (0.60-1.30) mg/dL Estimated GFR Greater than 89 (>89) mL/min POC Glucose 171 H (68-110) mg/dl Random Glucose 178 H (74-106) mg/dL Lactic Acid (0.4-2.0) mmol/L Calcium 8.1 L (8.5-10.1) mg/dL Prot Corrected Calcium (8.5-10.1) mg/dL Phosphorus (2.5-4.9) mg/dL Magnesium (1.5-2.5) mg/dL Total Bilirubin (0.2-1.0) mg/dL AST (15-37) U/L ALT (12-78) U/L Alkaline Phosphatase (45-117) U/L Total Creatine Kinase (39-308) U/L Troponin I (0.02-0.05) ng/mL B-Natriuretic Peptide (0-100) pg/mL Total Protein (6.4-8.2) g/dL Albumin (3.4-5.0) g/dL TSH (0.358-3.740) uIU/mL Urine Color (Yellw/Straw) Urine Clarity (Clear) Urine pH (5.0-8.5) Ur Specific [place] (1.002-1.035) Urine Protein (Neg-Trace) mg/dL Urine Glucose (UA) (Negative) mg/dL Urine Ketones (Negative) mg/dL Urine Occult Blood (Negative) Urine Nitrate (Negative) Urine Bilirubin (Negative) Urine Urobilinogen (Less than 2) mg/dL Ur Leukocyte Esterase (Negative) Urine RBC (0-3) /hpf Urine WBC (0-5) /hpf Urine WBC Clumps (None) Hyaline Casts (0-3) /lpf Urine Mucus (Occasional) /lpf Micro UA Comment Ur Microscopic Review Urine Culture Comments Nasal Screen MRSA (PCR) (Negative) Vancomycin Trough (5.0-10.0) mcg/mL Random Vancomycin Comment Blood Type Antibody Screen MTS Gel Crossmatch 08/21/18 08/21/18 08/21/18 Range/Units 06:51 11:23 11:30 WBC (4.0-11.0) th/mm3 RBC (4.50-5.90) mil/mm3 Hgb (13.0-17.0) gm/dL Hct (39.0-51.0) % MCV (80.0-100.0) fL MCH (27.0-34.0) pg MCHC (32.0-36.0) % RDW (11.6-17.2) % Plt Count (150-450) th/mm3 MPV (7.0-11.0) fL Prelim Diff (Auto) Neut % (Auto) (16.0-70.0) % Lymph % (Auto) (9.0-44.0) % Power % (Auto) (0.0-8.0) % Eos % (Auto) (0.0-4.0) % Baso % (Auto) (0.0-2.0) % Neut # (Auto) (1.8-7.7) th/mm3 Lymph # (Auto) (1.0-4.8) th/mm3 Power # (Auto) (0.0-0.9) th/mm3 Eos # (Auto) (0.0-0.4) th/mm3 Baso # (Auto) (0.0-0.2) th/mm3 WBC Differential Diff Scan Seg Neuts % (Manual) (16-70) % Band Neuts % (Manual) (0-6) % Lymphocytes % (Manual) (9-44) % Monocytes % (Manual) (0-8) % Eosinophils % (Manual) (0-4) % Basophils % (Manual) (0-2) % Metamyelocytes % (Man) (0-1) % Myelocytes % (Man) (0-0) % Promyelocytes % (Man) (0-0) % Abs Neuts (Manual) (1.8-7.7) th/mm3 Nucleated RBCs/100 WBC (0-0) /100 WBC Differential Comment Toxic Granulation (None) Toxic Vacuolation (None) Dohle Bodies (None) Platelet Estimate (Normal) Platelet Morphology (Normal) Target Cells (None) Tear Drop Cells (None) Ovalocytes (None) Acanthocytes (Spur) (None) Keratocytes (None) PT (9.8-11.6) sec INR Ratio APTT (24.3-30.1) sec Puncture Site Patient Temperature O2 Saturation (90-100) % ABG pH (7.380-7.420) ABG pCO2 (38-42) mmHg ABG pO2 (61-120) mmHg ABG HCO3 (22-26) mmol/L ABG O2 Content (12.0-20.0) Vol % ABG Base Excess (-2-2) mmol/L ABG Methemoglobin (0-2) % Adrian Test Hemoglobin (12.0-16.0) G/DL Carboxyhemoglobin (0-4) % O2 Delivery Device Liter Flow L/M Vent Setting Inspired O2 % Critical Value Sodium (136-145) meq/L Potassium (3.5-5.1) meq/L Chloride (98-107) meq/L Carbon Dioxide (21.0-32.0) meq/L Anion Gap (5-15) meq/L BUN (7-18) mg/dL Creatinine (0.60-1.30) mg/dL Estimated GFR (>89) mL/min POC Glucose 172 H 238 H (68-110) mg/dl Random Glucose (74-106) mg/dL Lactic Acid (0.4-2.0) mmol/L Calcium (8.5-10.1) mg/dL Prot Corrected Calcium (8.5-10.1) mg/dL Phosphorus (2.5-4.9) mg/dL Magnesium (1.5-2.5) mg/dL Total Bilirubin (0.2-1.0) mg/dL AST (15-37) U/L ALT (12-78) U/L Alkaline Phosphatase (45-117) U/L Total Creatine Kinase (39-308) U/L Troponin I (0.02-0.05) ng/mL B-Natriuretic Peptide (0-100) pg/mL Total Protein (6.4-8.2) g/dL Albumin (3.4-5.0) g/dL TSH (0.358-3.740) uIU/mL Urine Color (Yellw/Straw) Urine Clarity (Clear) Urine pH (5.0-8.5) Ur Specific [place] (1.002-1.035) Urine Protein (Neg-Trace) mg/dL Urine Glucose (UA) (Negative) mg/dL Urine Ketones (Negative) mg/dL Urine Occult Blood (Negative) Urine Nitrate (Negative) Urine Bilirubin (Negative) Urine Urobilinogen (Less than 2) mg/dL Ur Leukocyte Esterase (Negative) Urine RBC (0-3) /hpf Urine WBC (0-5) /hpf Urine WBC Clumps (None) Hyaline Casts (0-3) /lpf Urine Mucus (Occasional) /lpf Micro UA Comment Ur Microscopic Review Urine Culture Comments Nasal Screen MRSA (PCR) (Negative) Vancomycin Trough 13.7 H (5.0-10.0) mcg/mL Random Vancomycin Comment Blood Type Antibody Screen MTS Gel Crossmatch 08/21/18 08/21/18 08/22/18 Range/Units 14:11 17:51 01:25 WBC (4.0-11.0) th/mm3 RBC (4.50-5.90) mil/mm3 Hgb (13.0-17.0) gm/dL Hct (39.0-51.0) % MCV (80.0-100.0) fL MCH (27.0-34.0) pg MCHC (32.0-36.0) % RDW (11.6-17.2) % Plt Count (150-450) th/mm3 MPV (7.0-11.0) fL Prelim Diff (Auto) Neut % (Auto) (16.0-70.0) % Lymph % (Auto) (9.0-44.0) % Power % (Auto) (0.0-8.0) % Eos % (Auto) (0.0-4.0) % Baso % (Auto) (0.0-2.0) % Neut # (Auto) (1.8-7.7) th/mm3 Lymph # (Auto) (1.0-4.8) th/mm3 Power # (Auto) (0.0-0.9) th/mm3 Eos # (Auto) (0.0-0.4) th/mm3 Baso # (Auto) (0.0-0.2) th/mm3 WBC Differential Diff Scan Seg Neuts % (Manual) (16-70) % Band Neuts % (Manual) (0-6) % Lymphocytes % (Manual) (9-44) % Monocytes % (Manual) (0-8) % Eosinophils % (Manual) (0-4) % Basophils % (Manual) (0-2) % Metamyelocytes % (Man) (0-1) % Myelocytes % (Man) (0-0) % Promyelocytes % (Man) (0-0) % Abs Neuts (Manual) (1.8-7.7) th/mm3 Nucleated RBCs/100 WBC (0-0) /100 WBC Differential Comment Toxic Granulation (None) Toxic Vacuolation (None) Dohle Bodies (None) Platelet Estimate (Normal) Platelet Morphology (Normal) Target Cells (None) Tear Drop Cells (None) Ovalocytes (None) Acanthocytes (Spur) (None) Keratocytes (None) PT (9.8-11.6) sec INR Ratio APTT (24.3-30.1) sec Puncture Site Right radial Patient Temperature 98.6 O2 Saturation 98 (90-100) % ABG pH 7.43 H (7.380-7.420) ABG pCO2 42 (38-42) mmHg ABG pO2 236 H (61-120) mmHg ABG HCO3 27 H (22-26) mmol/L ABG O2 Content 18.7 (12.0-20.0) Vol % ABG Base Excess 3.1 H (-2-2) mmol/L ABG Methemoglobin 1.3 (0-2) % Adrian Test Present Hemoglobin 13.4 (12.0-16.0) G/DL Carboxyhemoglobin 1.5 (0-4) % O2 Delivery Device Ventilator Liter Flow L/M Vent Setting A/c 14/500/[id number] Inspired O2 70 % Critical Value No Sodium (136-145) meq/L Potassium (3.5-5.1) meq/L Chloride (98-107) meq/L Carbon Dioxide (21.0-32.0) meq/L Anion Gap (5-15) meq/L BUN (7-18) mg/dL Creatinine (0.60-1.30) mg/dL Estimated GFR (>89) mL/min POC Glucose 203 H 197 H (68-110) mg/dl Random Glucose (74-106) mg/dL Lactic Acid (0.4-2.0) mmol/L Calcium (8.5-10.1) mg/dL Prot Corrected Calcium (8.5-10.1) mg/dL Phosphorus (2.5-4.9) mg/dL Magnesium (1.5-2.5) mg/dL Total Bilirubin (0.2-1.0) mg/dL AST (15-37) U/L ALT (12-78) U/L Alkaline Phosphatase (45-117) U/L Total Creatine Kinase (39-308) U/L Troponin I (0.02-0.05) ng/mL B-Natriuretic Peptide (0-100) pg/mL Total Protein (6.4-8.2) g/dL Albumin (3.4-5.0) g/dL TSH (0.358-3.740) uIU/mL Urine Color (Yellw/Straw) Urine Clarity (Clear) Urine pH (5.0-8.5) Ur Specific [place] (1.002-1.035) Urine Protein (Neg-Trace) mg/dL Urine Glucose (UA) (Negative) mg/dL Urine Ketones (Negative) mg/dL Urine Occult Blood (Negative) Urine Nitrate (Negative) Urine Bilirubin (Negative) Urine Urobilinogen (Less than 2) mg/dL Ur Leukocyte Esterase (Negative) Urine RBC (0-3) /hpf Urine WBC (0-5) /hpf Urine WBC Clumps (None) Hyaline Casts (0-3) /lpf Urine Mucus (Occasional) /lpf Micro UA Comment Ur Microscopic Review Urine Culture Comments Nasal Screen MRSA (PCR) (Negative) Vancomycin Trough (5.0-10.0) mcg/mL Random Vancomycin Comment Blood Type Antibody Screen MTS Gel Crossmatch 08/22/18 08/22/18 08/22/18 Range/Units 04:21 04:21 12:50 WBC 25.2 H (4.0-11.0) th/mm3 RBC 3.70 L (4.50-5.90) mil/mm3 Hgb 10.4 L (13.0-17.0) gm/dL Hct 32.6 L (39.0-51.0) % MCV 88.0 (80.0-100.0) fL MCH 28.0 (27.0-34.0) pg MCHC 31.8 L (32.0-36.0) % RDW 17.3 H (11.6-17.2) % Plt Count 388 (150-450) th/mm3 MPV 8.2 (7.0-11.0) fL Prelim Diff (Auto) Slide review pending Neut % (Auto) 76.8 H (16.0-70.0) % Lymph % (Auto) 6.9 L (9.0-44.0) % Power % (Auto) 12.8 H (0.0-8.0) % Eos % (Auto) 3.2 (0.0-4.0) % Baso % (Auto) 0.3 (0.0-2.0) % Neut # (Auto) 19.3 H (1.8-7.7) th/mm3 Lymph # (Auto) 1.7 (1.0-4.8) th/mm3 Power # (Auto) 3.2 H (0.0-0.9) th/mm3 Eos # (Auto) 0.8 H (0.0-0.4) th/mm3 Baso # (Auto) 0.1 (0.0-0.2) th/mm3 WBC Differential . Diff Scan Auto diff confirmed Seg Neuts % (Manual) (16-70) % Band Neuts % (Manual) (0-6) % Lymphocytes % (Manual) (9-44) % Monocytes % (Manual) (0-8) % Eosinophils % (Manual) (0-4) % Basophils % (Manual) (0-2) % Metamyelocytes % (Man) (0-1) % Myelocytes % (Man) (0-0) % Promyelocytes % (Man) (0-0) % Abs Neuts (Manual) (1.8-7.7) th/mm3 Nucleated RBCs/100 WBC (0-0) /100 WBC Differential Comment . Toxic Granulation (None) Toxic Vacuolation (None) Dohle Bodies (None) Platelet Estimate Normal (Normal) Platelet Morphology Normal (Normal) Target Cells (None) Tear Drop Cells 1+ H (None) Ovalocytes 1+ H (None) Acanthocytes (Spur) (None) Keratocytes (None) PT (9.8-11.6) sec INR Ratio APTT (24.3-30.1) sec Puncture Site Patient Temperature O2 Saturation (90-100) % ABG pH (7.380-7.420) ABG pCO2 (38-42) mmHg ABG pO2 (61-120) mmHg ABG HCO3 (22-26) mmol/L ABG O2 Content (12.0-20.0) Vol % ABG Base Excess (-2-2) mmol/L ABG Methemoglobin (0-2) % Adrian Test Hemoglobin (12.0-16.0) G/DL Carboxyhemoglobin (0-4) % O2 Delivery Device Liter Flow L/M Vent Setting Inspired O2 % Critical Value Sodium 139 (136-145) meq/L Potassium 4.3 D (3.5-5.1) meq/L Chloride 104 (98-107) meq/L Carbon Dioxide 26.1 (21.0-32.0) meq/L Anion Gap 9 (5-15) meq/L BUN 17 (7-18) mg/dL Creatinine 1.00 (0.60-1.30) mg/dL Estimated GFR Greater than 89 (>89) mL/min POC Glucose 248 H (68-110) mg/dl Random Glucose 166 H (74-106) mg/dL Lactic Acid (0.4-2.0) mmol/L Calcium 8.2 L (8.5-10.1) mg/dL Prot Corrected Calcium (8.5-10.1) mg/dL Phosphorus (2.5-4.9) mg/dL Magnesium (1.5-2.5) mg/dL Total Bilirubin (0.2-1.0) mg/dL AST (15-37) U/L ALT (12-78) U/L Alkaline Phosphatase (45-117) U/L Total Creatine Kinase (39-308) U/L Troponin I (0.02-0.05) ng/mL B-Natriuretic Peptide (0-100) pg/mL Total Protein (6.4-8.2) g/dL Albumin (3.4-5.0) g/dL TSH (0.358-3.740) uIU/mL Urine Color (Yellw/Straw) Urine Clarity (Clear) Urine pH (5.0-8.5) Ur Specific [place] (1.002-1.035) Urine Protein (Neg-Trace) mg/dL Urine Glucose (UA) (Negative) mg/dL Urine Ketones (Negative) mg/dL Urine Occult Blood (Negative) Urine Nitrate (Negative) Urine Bilirubin (Negative) Urine Urobilinogen (Less than 2) mg/dL Ur Leukocyte Esterase (Negative) Urine RBC (0-3) /hpf Urine WBC (0-5) /hpf Urine WBC Clumps (None) Hyaline Casts (0-3) /lpf Urine Mucus (Occasional) /lpf Micro UA Comment Ur Microscopic Review Urine Culture Comments Nasal Screen MRSA (PCR) (Negative) Vancomycin Trough (5.0-10.0) mcg/mL Random Vancomycin Comment Blood Type Antibody Screen MTS Gel Crossmatch 08/22/18 08/22/18 08/23/18 Range/Units 18:41 22:19 04:24 WBC 19.6 H (4.0-11.0) th/mm3 RBC 3.27 L (4.50-5.90) mil/mm3 Hgb 9.4 L (13.0-17.0) gm/dL Hct 28.0 L (39.0-51.0) % MCV 85.6 (80.0-100.0) fL MCH 28.7 (27.0-34.0) pg MCHC 33.6 (32.0-36.0) % RDW 17.4 H (11.6-17.2) % Plt Count 364 (150-450) th/mm3 MPV 8.1 (7.0-11.0) fL Prelim Diff (Auto) Neut % (Auto) 77.9 H (16.0-70.0) % Lymph % (Auto) 7.6 L (9.0-44.0) % Power % (Auto) 9.0 H (0.0-8.0) % Eos % (Auto) 5.0 H (0.0-4.0) % Baso % (Auto) 0.5 (0.0-2.0) % Neut # (Auto) 15.3 H (1.8-7.7) th/mm3 Lymph # (Auto) 1.5 (1.0-4.8) th/mm3 Power # (Auto) 1.8 H (0.0-0.9) th/mm3 Eos # (Auto) 1.0 H (0.0-0.4) th/mm3 Baso # (Auto) 0.1 (0.0-0.2) th/mm3 WBC Differential . Diff Scan Seg Neuts % (Manual) (16-70) % Band Neuts % (Manual) (0-6) % Lymphocytes % (Manual) (9-44) % Monocytes % (Manual) (0-8) % Eosinophils % (Manual) (0-4) % Basophils % (Manual) (0-2) % Metamyelocytes % (Man) (0-1) % Myelocytes % (Man) (0-0) % Promyelocytes % (Man) (0-0) % Abs Neuts (Manual) (1.8-7.7) th/mm3 Nucleated RBCs/100 WBC (0-0) /100 WBC Differential Comment Auto diff final Toxic Granulation (None) Toxic Vacuolation (None) Dohle Bodies (None) Platelet Estimate (Normal) Platelet Morphology (Normal) Target Cells (None) Tear Drop Cells (None) Ovalocytes (None) Acanthocytes (Spur) (None) Keratocytes (None) PT (9.8-11.6) sec INR Ratio APTT (24.3-30.1) sec Puncture Site Patient Temperature O2 Saturation (90-100) % ABG pH (7.380-7.420) ABG pCO2 (38-42) mmHg ABG pO2 (61-120) mmHg ABG HCO3 (22-26) mmol/L ABG O2 Content (12.0-20.0) Vol % ABG Base Excess (-2-2) mmol/L ABG Methemoglobin (0-2) % Adrian Test Hemoglobin (12.0-16.0) G/DL Carboxyhemoglobin (0-4) % O2 Delivery Device Liter Flow L/M Vent Setting Inspired O2 % Critical Value Sodium (136-145) meq/L Potassium (3.5-5.1) meq/L Chloride (98-107) meq/L Carbon Dioxide (21.0-32.0) meq/L Anion Gap (5-15) meq/L BUN (7-18) mg/dL Creatinine (0.60-1.30) mg/dL Estimated GFR (>89) mL/min POC Glucose 210 H 262 H (68-110) mg/dl Random Glucose (74-106) mg/dL Lactic Acid (0.4-2.0) mmol/L Calcium (8.5-10.1) mg/dL Prot Corrected Calcium (8.5-10.1) mg/dL Phosphorus (2.5-4.9) mg/dL Magnesium (1.5-2.5) mg/dL Total Bilirubin (0.2-1.0) mg/dL AST (15-37) U/L ALT (12-78) U/L Alkaline Phosphatase (45-117) U/L Total Creatine Kinase (39-308) U/L Troponin I (0.02-0.05) ng/mL B-Natriuretic Peptide (0-100) pg/mL Total Protein (6.4-8.2) g/dL Albumin (3.4-5.0) g/dL TSH (0.358-3.740) uIU/mL Urine Color (Yellw/Straw) Urine Clarity (Clear) Urine pH (5.0-8.5) Ur Specific [place] (1.002-1.035) Urine Protein (Neg-Trace) mg/dL Urine Glucose (UA) (Negative) mg/dL Urine Ketones (Negative) mg/dL Urine Occult Blood (Negative) Urine Nitrate (Negative) Urine Bilirubin (Negative) Urine Urobilinogen (Less than 2) mg/dL Ur Leukocyte Esterase (Negative) Urine RBC (0-3) /hpf Urine WBC (0-5) /hpf Urine WBC Clumps (None) Hyaline Casts (0-3) /lpf Urine Mucus (Occasional) /lpf Micro UA Comment Ur Microscopic Review Urine Culture Comments Nasal Screen MRSA (PCR) (Negative) Vancomycin Trough (5.0-10.0) mcg/mL Random Vancomycin Comment Blood Type Antibody Screen MTS Gel Crossmatch 08/23/18 08/23/18 08/23/18 Range/Units 04:24 05:06 13:21 WBC (4.0-11.0) th/mm3 RBC (4.50-5.90) mil/mm3 Hgb (13.0-17.0) gm/dL Hct (39.0-51.0) % MCV (80.0-100.0) fL MCH (27.0-34.0) pg MCHC (32.0-36.0) % RDW (11.6-17.2) % Plt Count (150-450) th/mm3 MPV (7.0-11.0) fL Prelim Diff (Auto) Neut % (Auto) (16.0-70.0) % Lymph % (Auto) (9.0-44.0) % Power % (Auto) (0.0-8.0) % Eos % (Auto) (0.0-4.0) % Baso % (Auto) (0.0-2.0) % Neut # (Auto) (1.8-7.7) th/mm3 Lymph # (Auto) (1.0-4.8) th/mm3 Power # (Auto) (0.0-0.9) th/mm3 Eos # (Auto) (0.0-0.4) th/mm3 Baso # (Auto) (0.0-0.2) th/mm3 WBC Differential Diff Scan Seg Neuts % (Manual) (16-70) % Band Neuts % (Manual) (0-6) % Lymphocytes % (Manual) (9-44) % Monocytes % (Manual) (0-8) % Eosinophils % (Manual) (0-4) % Basophils % (Manual) (0-2) % Metamyelocytes % (Man) (0-1) % Myelocytes % (Man) (0-0) % Promyelocytes % (Man) (0-0) % Abs Neuts (Manual) (1.8-7.7) th/mm3 Nucleated RBCs/100 WBC (0-0) /100 WBC Differential Comment Toxic Granulation (None) Toxic Vacuolation (None) Dohle Bodies (None) Platelet Estimate (Normal) Platelet Morphology (Normal) Target Cells (None) Tear Drop Cells (None) Ovalocytes (None) Acanthocytes (Spur) (None) Keratocytes (None) PT (9.8-11.6) sec INR Ratio APTT (24.3-30.1) sec Puncture Site Patient Temperature O2 Saturation (90-100) % ABG pH (7.380-7.420) ABG pCO2 (38-42) mmHg ABG pO2 (61-120) mmHg ABG HCO3 (22-26) mmol/L ABG O2 Content (12.0-20.0) Vol % ABG Base Excess (-2-2) mmol/L ABG Methemoglobin (0-2) % Adrian Test Hemoglobin (12.0-16.0) G/DL Carboxyhemoglobin (0-4) % O2 Delivery Device Liter Flow L/M Vent Setting Inspired O2 % Critical Value Sodium 144 (136-145) meq/L Potassium 3.4 L D (3.5-5.1) meq/L Chloride 108 H (98-107) meq/L Carbon Dioxide 28.2 (21.0-32.0) meq/L Anion Gap 8 (5-15) meq/L BUN 21 H (7-18) mg/dL Creatinine 1.08 (0.60-1.30) mg/dL Estimated GFR 85 L (>89) mL/min POC Glucose 146 H 201 H (68-110) mg/dl Random Glucose 133 H (74-106) mg/dL Lactic Acid (0.4-2.0) mmol/L Calcium 8.0 L (8.5-10.1) mg/dL Prot Corrected Calcium (8.5-10.1) mg/dL Phosphorus (2.5-4.9) mg/dL Magnesium (1.5-2.5) mg/dL Total Bilirubin (0.2-1.0) mg/dL AST (15-37) U/L ALT (12-78) U/L Alkaline Phosphatase (45-117) U/L Total Creatine Kinase (39-308) U/L Troponin I (0.02-0.05) ng/mL B-Natriuretic Peptide (0-100) pg/mL Total Protein (6.4-8.2) g/dL Albumin (3.4-5.0) g/dL TSH (0.358-3.740) uIU/mL Urine Color (Yellw/Straw) Urine Clarity (Clear) Urine pH (5.0-8.5) Ur Specific [place] (1.002-1.035) Urine Protein (Neg-Trace) mg/dL Urine Glucose (UA) (Negative) mg/dL Urine Ketones (Negative) mg/dL Urine Occult Blood (Negative) Urine Nitrate (Negative) Urine Bilirubin (Negative) Urine Urobilinogen (Less than 2) mg/dL Ur Leukocyte Esterase (Negative) Urine RBC (0-3) /hpf Urine WBC (0-5) /hpf Urine WBC Clumps (None) Hyaline Casts (0-3) /lpf Urine Mucus (Occasional) /lpf Micro UA Comment Ur Microscopic Review Urine Culture Comments Nasal Screen MRSA (PCR) (Negative) Vancomycin Trough (5.0-10.0) mcg/mL Random Vancomycin 19.2 Comment Blood Type Antibody Screen MTS Gel Crossmatch 08/23/18 08/23/18 08/23/18 Range/Units 13:54 18:43 23:57 WBC (4.0-11.0) th/mm3 RBC (4.50-5.90) mil/mm3 Hgb (13.0-17.0) gm/dL Hct (39.0-51.0) % MCV (80.0-100.0) fL MCH (27.0-34.0) pg MCHC (32.0-36.0) % RDW (11.6-17.2) % Plt Count (150-450) th/mm3 MPV (7.0-11.0) fL Prelim Diff (Auto) Neut % (Auto) (16.0-70.0) % Lymph % (Auto) (9.0-44.0) % Power % (Auto) (0.0-8.0) % Eos % (Auto) (0.0-4.0) % Baso % (Auto) (0.0-2.0) % Neut # (Auto) (1.8-7.7) th/mm3 Lymph # (Auto) (1.0-4.8) th/mm3 Power # (Auto) (0.0-0.9) th/mm3 Eos # (Auto) (0.0-0.4) th/mm3 Baso # (Auto) (0.0-0.2) th/mm3 WBC Differential Diff Scan Seg Neuts % (Manual) (16-70) % Band Neuts % (Manual) (0-6) % Lymphocytes % (Manual) (9-44) % Monocytes % (Manual) (0-8) % Eosinophils % (Manual) (0-4) % Basophils % (Manual) (0-2) % Metamyelocytes % (Man) (0-1) % Myelocytes % (Man) (0-0) % Promyelocytes % (Man) (0-0) % Abs Neuts (Manual) (1.8-7.7) th/mm3 Nucleated RBCs/100 WBC (0-0) /100 WBC Differential Comment Toxic Granulation (None) Toxic Vacuolation (None) Dohle Bodies (None) Platelet Estimate (Normal) Platelet Morphology (Normal) Target Cells (None) Tear Drop Cells (None) Ovalocytes (None) Acanthocytes (Spur) (None) Keratocytes (None) PT (9.8-11.6) sec INR Ratio APTT (24.3-30.1) sec Puncture Site Patient Temperature O2 Saturation (90-100) % ABG pH (7.380-7.420) ABG pCO2 (38-42) mmHg ABG pO2 (61-120) mmHg ABG HCO3 (22-26) mmol/L ABG O2 Content (12.0-20.0) Vol % ABG Base Excess (-2-2) mmol/L ABG Methemoglobin (0-2) % Adrian Test Hemoglobin (12.0-16.0) G/DL Carboxyhemoglobin (0-4) % O2 Delivery Device Liter Flow L/M Vent Setting Inspired O2 % Critical Value Sodium 142 (136-145) meq/L Potassium 6.0 H D (3.5-5.1) meq/L Chloride 110 H (98-107) meq/L Carbon Dioxide 24.8 (21.0-32.0) meq/L Anion Gap 7 (5-15) meq/L BUN 20 H (7-18) mg/dL Creatinine 0.96 (0.60-1.30) mg/dL Estimated GFR Greater than 89 (>89) mL/min POC Glucose 165 H 165 H (68-110) mg/dl Random Glucose 211 H (74-106) mg/dL Lactic Acid (0.4-2.0) mmol/L Calcium 8.1 L (8.5-10.1) mg/dL Prot Corrected Calcium (8.5-10.1) mg/dL Phosphorus (2.5-4.9) mg/dL Magnesium (1.5-2.5) mg/dL Total Bilirubin 0.4 (0.2-1.0) mg/dL AST 39 H (15-37) U/L ALT 26 (12-78) U/L Alkaline Phosphatase 98 (45-117) U/L Total Creatine Kinase (39-308) U/L Troponin I (0.02-0.05) ng/mL B-Natriuretic Peptide (0-100) pg/mL Total Protein 6.7 (6.4-8.2) g/dL Albumin 1.5 L (3.4-5.0) g/dL TSH (0.358-3.740) uIU/mL Urine Color (Yellw/Straw) Urine Clarity (Clear) Urine pH (5.0-8.5) Ur Specific [place] (1.002-1.035) Urine Protein (Neg-Trace) mg/dL Urine Glucose (UA) (Negative) mg/dL Urine Ketones (Negative) mg/dL Urine Occult Blood (Negative) Urine Nitrate (Negative) Urine Bilirubin (Negative) Urine Urobilinogen (Less than 2) mg/dL Ur Leukocyte Esterase (Negative) Urine RBC (0-3) /hpf Urine WBC (0-5) /hpf Urine WBC Clumps (None) Hyaline Casts (0-3) /lpf Urine Mucus (Occasional) /lpf Micro UA Comment Ur Microscopic Review Urine Culture Comments Nasal Screen MRSA (PCR) (Negative) Vancomycin Trough (5.0-10.0) mcg/mL Random Vancomycin Comment Blood Type Antibody Screen MTS Gel Crossmatch Imaging Data Radiologist's impression: Chest X-Ray 08/18/18 00:00 CONCLUSION: Right lower lung consolidation or atelectasis which appears new. Head CT 08/18/18 00:56 CONCLUSION: 1. No acute intracranial abnormality. 2. 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 . Chest X-Ray 08/18/18 11:30 CONCLUSION: Worsening right base consolidation. Chest X-Ray 08/19/18 09:34 CONCLUSION: 1. Worsening moderate right-sided pleural effusion and associated airspace consolidation. 2. Persistent mild left lung base airspace consolidation, presumably atelectasis. Chest CT 08/20/18 00:00 CONCLUSION: 1. Bilateral airspace disease, right much worse than left. I believe the left basilar consolidation is probably atelectatic with may be a mild left perihilar infiltrate. 2. On the right, dense consolidation in the right base with patchy airspace disease in the right perihilar and upper lobe distribution concerning for a pneumonic process. Chest X-Ray 08/21/18 12:34 CONCLUSION: Bilateral airspace disease as described above, right greater than left. This corresponds to the findings on recent CT chest. Chest X-Ray 08/22/18 04:00 CONCLUSION: Left lower lung consolidation. Stable nonconsolidative infiltrates right upper lung. Discharge Plan Discharge Disposition Patient Disposition: 30 Still Patient Physicians Team ED Provider: Kentrell Mccoy Primary Care Provider: Jeff Vieira Attending Provider: Twan Fajardo Other Providers: Rodney Genao ; [facility],Agency Status ED Status: Left Department Discharge Information Discharge Date/Time: 08/18/18 05:17
[2018-08-18] MEDS: Sod Chloride 0.9% Inj 1,000 ML IV.SIG SCH ×4 (02:37→06:43)
[2018-08-18 03:00] LABS: ABG Base Excess 5.5 mmol/L (-2-2); ABG PCO2 39 mmHg (38-42); ABG PO2 81 mmHg (61-120)
[2018-08-18] MEDS ORDERED: Vancomycin Inj 1,000 MG in Sodium Chlor 0.9% Inj 250 ML IV.SIG ONE (03:00)
[2018-08-18] MEDS ORDERED: Bisacodyl 10 MG Supp RECTAL PRN ×2 (03:32→03:36)
[2018-08-18] MEDS ORDERED: Acetaminophen 325 MG Tablet PO PRN ×2 (03:32→03:36)
[2018-08-18] MEDS ORDERED: Temazepam 15 MG Capsule PO PRN (03:36)
[2018-08-18] MEDS ORDERED: Morphine Sulfate Inj 2 MG/ML Vial IV.PUSH PRN (03:36)
[2018-08-18] MEDS ORDERED: Vancomycin Consult Pharmacy OTHER ONE (03:43)
--- NOTE | 2018-08-18 03:49 | P.HPCC ---
History of Present Illness Primary Care Physician: Jeff Vieira History of Present Illness: 62-year-old male presents from [facility] for an evaluation of altered mental status. As per the staff patient was altered mental status for past 8 hours and his symptoms progressively worsen. So the called 911. Patient was initially a DNR however his mother in the emergency department at the bedside requested a full code. He has a history of previous stroke and left-sided hemiplegia. 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 As per EMS his GCS was 4 when they arrived and after this started fluid he improved to 10. His blood pressure initially was 80 systolic and prior to getting inside the ER it was 100 systolic. Patient obviously was unable to give any history. Blood sugar was 220. Chest x-ray shows new infiltrate in the right lower lobe suggesting aspiration pneumonia. Inpatient Certification: I certify that the inpatient services were ordered in accordance with Medicare regulations governing the order. 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 - Medical History Medical History: Medical History (Last Reviewed 08/18/18 @ 02:19 by Kentrell Mccoy MD) Stroke (Acute) Hyperlipemia (Acute) Anemia (Acute) HTN (hypertension) (Acute) Diabetes mellitus (Acute) - Surgical History Surgical History: Surgical History (Last Reviewed 08/18/18 @ 02:19 by Kentrell Mccoy MD) No significant past surgical history - Family History Family History: Family History (Last Reviewed 08/18/18 @ 02:19 by Kentrell Mccoy MD) Mother CVA (cerebral vascular accident) HTN (hypertension) - Tobacco History Second Hand Smoke Exposure: No Smoking Status: Unknown if ever smoked Tobacco Type: Cigarettes - Alcohol History How Often Do You Have a Drink Containing Alcohol: Unable to Obtain - Substance Use History Substance History: Unable to Obtain - Travel History Recent Travel in the [place] Within the Last 8 Weeks: No Recent Travel Out of the Country Within the Last 8 Weeks: No - Immunization History Tetanus Immunization: Unable to Assess Medications and Allergies Active Medications: Active Medications Acetaminophen (Tylenol) 650 mg PO Q4H PRN PRN Reason: Temp > 100.4, pain 1 to 10 Al Hydroxide/Mg Hydroxide (Milk Of Magnesia Liq) 30 ml PO Q12H PRN PRN Reason: Mild Constipation Albuterol (Duoneb Neb (Prn)) 1 ampul NEB Q2HR NEB PRN PRN Reason: WHEEZING Aspirin (Aspirin) 325 mg G-TUBE DAILY JADA Atorvastatin Calcium (Lipitor) 10 mg G-TUBE HS JADA Bisacodyl (Dulcolax Supp) 10 mg RECTAL DAILY PRN PRN Reason: Severe Consitipation Bisacodyl (Dulcolax Supp) 10 mg RECTAL DAILY PRN PRN Reason: SEVERE CONSITIPATION Chlorhexidine Gluconate (Chlorhexidine 2% Cloth) 3 pack TOPICAL DAILY@0400 JADA Stop: 08/23/18 03:59 Chlorhexidine Gluconate (Chlorhexidine 2% Cloth) 3 pack TOPICAL DAILY@0400 PRN PRN Reason: Extra cloth needed Stop: 08/23/18 03:59 Cyclobenzaprine HCl (Flexeril) 10 mg G-TUBE TID PRN PRN Reason: Muscle Spasm Dextrose (D50w Vial) 50 ml IV.PUSH UNSCH PRN PRN Reason: PER HYPOGLYCEMIA PROTOCOL Ferrous Sulfate (Ferosul) 325 mg PO DAILY JADA Glucagon (Glucagon Inj) 1 mg OTHER PRN PRN PRN Reason: for Hypoglycemia Protocol Sodium Chloride (Ns Inj) 1,000 mls @ 0 mls/hr IV.SIG BOLUS JADA Stop: 08/19/18 02:01 Last Admin: 08/18/18 02:39 Dose: 1,000 mls/hr Vancomycin HCl 1,000 mg/ (Sodium Chloride) 250 mls @ 250 mls/hr IV.SIG ONCE ONE Stop: 08/18/18 03:59 Last Admin: 08/18/18 02:57 Dose: 250 mls/hr Insulin Aspart (Novolog Insulin Correctional Sugar Inj) 0 unit SQ Q6HR JADA; Protocol Insulin Detemir (Levemir Inj) 10 unit SQ BID JADA Lactulose (Lactulose Liq) 30 ml PO DAILY PRN PRN Reason: SEVERE CONSITIPATION Lansoprazole (Prevacid Solutab) 30 mg G-TUBE BID JADA Sodium Chloride (Ns Flush) 2 ml IV.FLUSH PRN PRN PRN Reason: FLUSH AFTER USING IV ACCESS Allergies Allergy/AdvReac Type Severity Reaction Status Date / Time No Known Allergies Allergy Verified 07/11/18 22:34 Home Medications Medication Instructions Recorded Confirmed Type amlodipine 10 mg FEEDING TUBE DAILY 06/27/18 08/18/18 History cyclobenzaprine 10 mg FEEDING TUBE TID PRN 06/27/18 08/18/18 History ferrous sulfate 325 mg FEEDING TUBE DAILY 06/27/18 08/18/18 History lisinopril 20 mg FEEDING TUBE DAILY 06/27/18 08/18/18 History metformin 1,000 mg FEEDING TUBE BID 06/27/18 08/18/18 History atorvastatin [Lipitor] 10 mg FEEDING TUBE HS 07/03/18 08/18/18 History magnesium citrate 296 ml FEEDING TUBE DAILY PRN 07/03/18 08/18/18 History magnesium hydroxide [Milk of 30 ml FEEDING TUBE DAILY PRN 07/03/18 08/18/18 History Magnesia] sennosides [Senna Lax] 2 tab FEEDING TUBE Q12H PRN 07/03/18 08/18/18 History Results - Labs CBC & Chem 7: 08/18/18 01:00 08/18/18 01:00 Labs: Short CBC 08/18/18 Range/Units 01:00 WBC 33.1 H (4.0-11.0) th/mm3 Hgb 8.2 L (13.0-17.0) gm/dL Hct 23.5 L (39.0-51.0) % Plt Count 380 (150-450) th/mm3 BMP 08/18/18 01:00 Sodium 129 L Potassium 5.5 H Chloride 89 L Carbon Dioxide 29.6 BUN 92 H Creatinine 2.40 H Calcium 9.1 Cardiac Enzymes 08/18/18 Range/Units 01:00 Total Creatine Kinase 50 (39-308) U/L Troponin I Less than 0.02 L (0.02-0.05) ng/mL Liver Function 08/18/18 Range/Units 01:00 Total Bilirubin 0.2 (0.2-1.0) mg/dL AST 26 (15-37) U/L ALT 32 (12-78) U/L Alkaline Phosphatase 100 (45-117) U/L Albumin 2.5 L (3.4-5.0) g/dL Urine 08/18/18 Range/Units 01:05 Urine Color [place] (Yellw/Straw) Urine Clarity Turbid H (Clear) Urine pH 5.0 (5.0-8.5) Ur Specific [place] 1.016 (1.002-1.035) Urine Protein 30 H (Neg-Trace) mg/dL Urine Glucose (UA) Negative (Negative) mg/dL - Imaging Impressions Head CT 08/18/18 00:56 CONCLUSION: 1. No acute intracranial abnormality. 2. 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 Chest X-Ray 08/18/18 00:00 CONCLUSION: Right lower lung consolidation or atelectasis which appears new. Exam Vital signs: Vital Signs 08/18/18 00:44 08/18/18 01:35 08/18/18 01:44 Temperature 97.4 F L Pulse Rate 100 H 96 H 96 H Respiratory Rate 30 H 28 H Blood Pressure 115/58 L 126/52 L Pulse Oximetry 95 95 95 08/18/18 02:50 08/18/18 03:22 Temperature Pulse Rate 98 H 94 H Respiratory Rate 24 24 Blood Pressure 139/65 137/68 Pulse Oximetry 96 Intake & Output 08/17/18 08/17/18 08/18/18 06:59 18:59 06:59 Intake Total 1100 / 1100 Balance 1100 / 1100 Weight 45.359 kg Intake: IV 1100 / 1100 Zosyn 4.5 GM Premix 4.5 gm In 100 / 100 100 ml @ 200 mls/hr IV.SIG ONCE ONE Rx#:[id number] NS Inj 1,000 ML @ Wide Open IV. 1000 / 1000 SIG BOLUS JADA Rx#:[id number] - Constitutional chronically ill appearing, obtunded - Routine HEENT Exam Head: Present: normocephalic Eye: Present: PERRL, normal accommodation - Routine Neck Exam Present: supple, full ROM. Absent: JVD, carotid bruit - Routine Respiratory Exam Present: rhonchi, crackles. Absent: accessory muscle use, stridor, wheezes - Routine Cardiovascular Exam Present: RRR, S1, S2 - Routine Abdominal Exam Present: soft, normoactive bowel sounds. Absent: tenderness - Routine Extremities Exam Absent: cyanosis, clubbing, edema - Routine Skin Exam Absent: intact, cyanosis, erythema - Routine Neurological Exam Present: altered mental status Left-sided hemiplegia Septic Shock Reassessment Septic shock perfusion: reassessment completed Caprini VTE Risk Assessment Caprini VTE Risk Assessment: Moderate/High Risk (score >= 2) Caprini Risk Assessment Model: Point Value = 1 Point Value = 2 Point Value = 3 Point Value = 5 Age 41-60 Minor surgery BMI > 25 kg/m2 Swollen legs Varicose veins or History of unexplained or recurrent spontaneous Oral contraceptives or hormone replacement Sepsis (< 1 month) Serious lung disease, including pneumonia (< 1 month) Abnormal pulmonary function Acute myocardial infarction Congestive heart failure (< 1 month) History of inflammatory bowel disease Medical patient at bed rest Age 61-74 Arthroscopic surgery Major open surgery (> 45 min) Laparoscopic surgery (> 45 min) Malignancy Confined to bed (> 72 hours) Immobilizing plaster cast Central venous access Age >= 75 History of VTE Family history of VTE Factor V Leiden Prothrombin [id number] Lupus anticoagulant Anticardiolipin antibodies Elevated serum homocysteine Heparin-induced thrombocytopenia Other congenital or acquired thrombophilia Stroke (< 1 month) Elective arthroplasty Hip, pelvis, or leg fracture Acute spinal cord injury (< 1 month) Prophylaxis Regimen: Total Risk Factor Score Risk Level Prophylaxis Regimen 0-1 Low Early ambulation 2 Moderate Order ONE of the following: *Sequential Compression Device (SCD) *Heparin 5000 units SQ BID 3-4 Higher Order ONE of the following medications: *Heparin 5000 units SQ TID *Enoxaparin/Lovenox 40 mg SQ daily (WT < 150 kg, CrCl > 30 mL/min) *Enoxaparin/Lovenox 30 mg SQ daily (WT < 150 kg, CrCl > 10-29 mL/min) *Enoxaparin/Lovenox 30 mg SQ BID (WT < 150 kg, CrCl > 30 mL/min) AND/OR *Sequential Compression Device (SCD) 5 or more Highest Order ONE of the following medications: *Heparin 5000 units SQ TID (Preferred with Epidurals) *Enoxaparin/Lovenox 40 mg SQ daily (WT < 150 kg, CrCl > 30 mL/min) *Enoxaparin/Lovenox 30 mg SQ daily (WT < 150 kg, CrCl > 10-29 mL/min) *Enoxaparin/Lovenox 30 mg SQ BID (WT < 150 kg, CrCl > 30 mL/min) AND *Sequential Compression Device (SCD) Assessment and Plan - Assessment and Plan Plan: Sepsis -Aggressive IV fluid hydration -Broad-spectrum antibiotic -Blood cultures -CXR new infiltrate -Likely pneumonia/aspiration Pneumonia -Vancomycin and Zosyn Zithromax -DuoNeb's as needed Lactic acidosis -Due to above -Monitor trend -IV fluid hydration Hyperlipemia -Atorvastatin History of CVA -Aspirin -Atorvastatin -Cyclobenzaprine Anemia -Ferrous Sulfate -Monitor H&H -Transfuse as needed to keep hemoglobin above 7 Diabetes mellitus -Insulin Detemir -Insulin sliding scale DVT GI prophylaxis -Teds SCDs -Subcu heparin -Lansoprazole 35 minutes of critical care
[2018-08-18] MEDS ORDERED: Chlorhexidine Gluconate 2% 1 Pack (2 Cloths) TOPICAL PRN (04:00)
--- NOTE | 2018-08-18 04:01 | XR ---
EXAM DATE: 08/18/2018 12:00 AM EDT AGE/SEX: 62 years / Male INDICATIONS: Short of breath. CLINICAL DATA: This is the patient's initial encounter. Patient reports that signs and symptoms have been present for 1 day and indicates a pain score of 0/10. MEDICAL/SURGICAL HISTORY: None. None. COMPARISON: [facility] [place] 1V SINGLE AP, 07/11/2018. . FINDINGS: The heart size is enlarged. This increased density in the right base. The left lung is clear. CONCLUSION: Right lower lung consolidation or atelectasis which appears new. Electronically signed by: Pawan Owusu MD 08/18/2018 4:00 AM EDT
[2018-08-18] MEDS ORDERED: Vancomycin Consult Pharmacy OTHER PRN (04:11)
[2018-08-18] MEDS: Sod Chloride 0.9% Inj 1,000 ML IV.CONT SCH ×3 (04:16→18:18)
[2018-08-18] MEDS: Azithromycin Inj 500 MG in Sodium Chlor 0.9% Inj 250 ML IV.SIG SCH (04:16)
[2018-08-18] MEDS: Chlorhexidine Gluconate 2% 1 Pack (2 Cloths) TOPICAL SCH (05:35)
[2018-08-18] MEDS ORDERED: Piperacil/Tazo 4.5 GM Premix 4.5 GM/100 ML BAG IV.SIG SCH (06:00)
[2018-08-18] MEDS: Heparin - SQ 10,000 UNITS/ML Vial SQ SCH ×3 (06:48→22:32)
[2018-08-18] MEDS: Piperacil/Tazo 3.375 GM Premix 50 ML IV.SIG SCH ×3 (09:00→20:46)
[2018-08-18] MEDS: Aspirin 325 MG Tablet G-TUBE SCH (09:01)
[2018-08-18] MEDS: Senna/Docusate Sodium 8.6/50 MG Tablet PO SCH ×2 (09:01→22:33)
[2018-08-18] MEDS: Ferrous Sulfate 325 MG Tablet PO SCH (09:23)
--- NOTE | 2018-08-18 09:57 | P.CONPAL ---
Consult Service: Palliative Care Requesting Physician: Twan Fajardo Reason for Consult: a. To assist with evaluation and management of symptoms including:altered mental status. b. To assist medical decision maker(s) with: better understanding of current medical conditions; weighing benefits/burdens of medical treatment options; making medical treatment decisions. Primary Care Provider: Jeff Vieira History of Present Illness History of Present Illness: Mr. Gomez is a 62 year old male with past medical history of stroke with residual left sided hemiplegia, hyperlipidemia, hypertension and diabetes. Patient was a resident of the [facility] prior to admission. Patient presented to [facility] emergency department via EMS from [facility] on for evaluation of altered mental status that was worsening in the 8 hours prior to presentation. Upon EMS arrival he was noted to have GCS of 4 and improved to 10 with fluids. Systolic blood pressure was in the 80s. Additional findings upon arrival to [facility]: * GCS 8 per emergency room documentation * Temp 97.4, pulse 100, respiratory rate 30, BP 115/58, oxygen saturation 95% * WBC 33.1, hemoglobin 8.2, hematocrit 23.5, platelet count 380, neutrophils 71% , band neutrophils 13% * Sodium 129, potassium 5.5, chloride 89, carbon dioxide 29.6, BUN 92, creatinine 2.40, GFR 34, glucose 200 * Lactic acid 3.4 * AST 26, ALT 32 * Albumin 2.5 * Urinalysis -occult blood large, WBC clumps moderate, mucus few, culture indicated. * CT head no acute intracranial abnormality, bilateral areas of encephalomalacia from prior infarcts. * Chest x-ray-right lower lung consolidation or atelectasis. Patient was admitted to ICU with possible aspiration pneumonia, UTI, sepsis. Patient was started on Zosyn and vancomycin per sepsis protocol. Patient was reportedly DNR upon arrival to the emergency department and revoked DNR. I am uncertain if the patient or family revoked the DNR the patient is now FULL CODE. Palliative care was consulted to assist with further clarification of goals of medical treatment. Function/Cognitive Trajectory: Has been in the [facility] for about a month post recent stroke. He is dependent for most of his care. PEG tube fed. Able to speak, mother says "he will only talk when he wants to." Mother reports following his recent stroke he had residual left-sided weakness, she reports that he started moving his left lower extremity again. He has not been moving his left upper extremity. She reports that he was having difficulty swallowing. Review of Systems unobtainable due to mental status PMFSH - History History Provided By: Medical Record - Medical History Medical History: Medical History (Last Updated 08/18/18 @ 11:16 by Naomi Back) Stroke (Acute) Hyperlipemia (Acute) Anemia (Acute) HTN (hypertension) (Acute) Diabetes mellitus (Acute) MDRO (multiple drug resistant organisms) resistance Onset Date: ~08/18/18 - Surgical History Surgical History: Surgical History (Last Updated 08/18/18 @ 18:46 by Miriam Ashford) S/P percutaneous endoscopic gastrostomy (PEG) tube placement - Family History Family History: Family History (Last Reviewed 08/18/18 @ 02:19 by Kentrell Mccoy MD) Mother CVA (cerebral vascular accident) HTN (hypertension) - Social History I have reviewed the patient's Social History: Yes - Tobacco History Second Hand Smoke Exposure: No Smoking Status: Unknown if ever smoked Tobacco Type: Cigarettes - Alcohol History How Often Do You Have a Drink Containing Alcohol: Unable to Obtain - Substance Use History Substance History: No History of Abuse - Travel History Recent Travel in the [place] Within the Last 8 Weeks: No Recent Travel Out of the Country Within the Last 8 Weeks: No - Immunization History Tetanus Immunization: Unable to Assess Hx Influenza Vaccine This Season: Unable to Assess Medications and Allergies Active Medications: Active Medications Acetaminophen (Tylenol) 650 mg PO Q6H PRN PRN Reason: PAIN 1-5 AND/OR FEVER >101F Al Hydroxide/Mg Hydroxide (Milk Of Omayra Mendez) 30 ml PO Q12H PRN PRN Reason: Mild Constipation Albuterol (Duoneb Neb (Prn)) 1 ampul NEB Q2HR NEB PRN PRN Reason: WHEEZING Albuterol (Duoneb Neb (Mira)) 1 ampul NEB Q6HR NEB MIRA Last Admin: 08/18/18 08:20 Dose: 1 ampul Aspirin (Aspirin) 325 mg G-TUBE DAILY MIRA Last Admin: 08/18/18 09:01 Dose: 325 mg Atorvastatin Calcium (Lipitor) 10 mg G-TUBE HS MIRA Bisacodyl (Dulcolax Supp) 10 mg RECTAL DAILY PRN PRN Reason: SEVERE CONSITIPATION Chlorhexidine Gluconate (Chlorhexidine 2% Cloth) 3 pack TOPICAL DAILY@0400 MIRA Stop: 08/23/18 03:59 Last Admin: 08/18/18 05:35 Dose: 3 pack Chlorhexidine Gluconate (Chlorhexidine 2% Cloth) 3 pack TOPICAL DAILY@0400 PRN PRN Reason: Extra cloth needed Stop: 08/23/18 03:59 Cyclobenzaprine HCl (Flexeril) 10 mg G-TUBE TID PRN PRN Reason: Muscle Spasm Dextrose (D50w Vial) 50 ml IV.PUSH UNSCH PRN PRN Reason: PER HYPOGLYCEMIA PROTOCOL Ferrous Sulfate (Ferosul) 325 mg PO DAILY [facility] Last Admin: 08/18/18 09:23 Dose: Not Given Glucagon (Glucagon Inj) 1 mg OTHER PRN PRN PRN Reason: for Hypoglycemia Protocol Heparin Sodium (Porcine) (Heparin Inj) 5,000 units SQ Q8HR [facility] Last Admin: 08/18/18 06:48 Dose: 5,000 units Sodium Chloride (Ns Inj) 1,000 mls @ 0 mls/hr IV.SIG BOLUS MIRA Stop: 08/19/18 02:01 Last Infusion: 08/18/18 05:35 Dose: Infused Sodium Chloride (Ns Inj) 1,000 mls @ 154 mls/hr IV.CONT .Q6H30M [facility] Last Admin: 08/18/18 04:16 Dose: 154 mls/hr Azithromycin 500 mg/ Sodium (Chloride) 250 mls @ 250 mls/hr IV.SIG Q24H [facility] Last Infusion: 08/18/18 05:35 Dose: Infused Piperacillin/Tazobactam/Dextrose (Zosyn 3.375 Gm Premix) 50 mls @ 100 mls/hr IV.SIG Q6H [facility] Last Admin: 08/18/18 09:00 Dose: 100 mls/hr Sodium Chloride (Ns Inj) 1,000 mls @ 0 mls/hr IV.SIG BOLUS [facility]IR[facility] Stop: 08/20/18 05:01 Last Admin: 08/18/18 06:43 Dose: 900 mls/hr Insulin Aspart (Novolog Insulin Correctional Sugar Inj) 0 unit SQ Q6HR MIRA; Protocol Insulin Detemir (Levemir Inj) 10 unit SQ BID [facility] Lactulose (Lactulose Liq) 30 ml PO DAILY PRN PRN Reason: SEVERE CONSITIPATION Lansoprazole (Prevacid Solutab) 30 mg G-TUBE BID [facility] Last Admin: 08/18/18 09:01 Dose: 30 mg Morphine Sulfate (Morphine Inj) 2 mg IV.PUSH Q2H PRN PRN Reason: PAIN SCALE 6 TO 10 Ondansetron HCl (Zofran Inj) 4 mg IV.PUSH Q6H PRN PRN Reason: NAUSEA OR VOMITING Pharmacy Profile Note (Vancomycin Consult Pharmacy) 1 each OTHER UNSCH PRN PRN Reason: VANCOMYCIN CONSULT Senna/Docusate Sodium (Claudia-Colace) 1 tab PO BID [facility] Last Admin: 08/18/18 09:01 Dose: 1 tab Sennosides (Senokot) 17.2 mg PO Q12H PRN PRN Reason: Moderate Constipation Sodium Chloride (Ns Flush) 2 ml IV.FLUSH BID [facility] Last Admin: 08/18/18 09:04 Dose: 2 ml Sodium Chloride (Ns Flush) 2 ml IV.FLUSH PRN PRN PRN Reason: FLUSH AFTER USING IV ACCESS Temazepam (Restoril) 15 mg PO HS PRN PRN Reason: INSOMNIA Allergies Allergy/AdvReac Type Severity Reaction Status Date / Time No Known Allergies Allergy Verified 07/11/18 22:34 Home Medications Medication Instructions Recorded Confirmed Type amlodipine 10 mg FEEDING TUBE DAILY 06/27/18 08/18/18 History cyclobenzaprine 10 mg FEEDING TUBE TID PRN 06/27/18 08/18/18 History ferrous sulfate 325 mg FEEDING TUBE DAILY 06/27/18 08/18/18 History lisinopril 20 mg FEEDING TUBE DAILY 06/27/18 08/18/18 History metformin 1,000 mg FEEDING TUBE BID 06/27/18 08/18/18 History atorvastatin [Lipitor] 10 mg FEEDING TUBE HS 07/03/18 08/18/18 History magnesium citrate 296 ml FEEDING TUBE DAILY PRN 07/03/18 08/18/18 History magnesium hydroxide [Milk of 30 ml FEEDING TUBE DAILY PRN 07/03/18 08/18/18 History Magnesia] sennosides [Senna Lax] 2 tab FEEDING TUBE Q12H PRN 07/03/18 08/18/18 History Advance Directives Living Will: No Healthcare Surrogate: No Health Care Surrogate Name and Number: Health care proxy deicsion maker, mother : Ivonner Page: [phone] Power of Biomechanical Engineer: No Today's verbally stated goals: Patient is not capacitated to make his own healthcare decisions, not likely regain capacity. Family/friends goals: Mother desires continued aggressive care including FULL CODE. She is open to additional conversations should his condition change significantly. Ethical and Legal Issues: Patient is not capacitated to make his own healthcare decisions, not likely regain capacity. Single. No children. According to [place] statutes, healthcare proxy decision making falls to the patient's mother, Edweader Page. Physical Exam Vital Signs: Vital Signs - 24 hr 08/18/18 00:44 08/18/18 01:35 08/18/18 01:44 Temperature 97.4 F L Pulse Rate 100 H 96 H 96 H Respiratory Rate 30 H 28 H Blood Pressure 115/58 L 126/52 L Pulse Oximetry 95 95 95 08/18/18 02:50 08/18/18 03:22 08/18/18 03:46 Temperature Pulse Rate 98 H 94 H Respiratory Rate 24 24 Blood Pressure 139/65 137/68 Pulse Oximetry 96 92 L 08/18/18 04:03 08/18/18 04:30 08/18/18 05:15 Temperature Pulse Rate 101 H 96 H Respiratory Rate 28 H 24 30 H Blood Pressure 115/68 Pulse Oximetry 93 L 08/18/18 05:18 08/18/18 06:00 08/18/18 07:00 Temperature 98.7 F Pulse Rate 97 H 97 H 97 H Respiratory Rate 30 H 26 H 22 Blood Pressure 119/63 115/59 L 116/58 L Pulse Oximetry 100 95 94 L 08/18/18 08:00 08/18/18 08:22 Temperature 99.3 F Pulse Rate 99 H 99 H Respiratory Rate 29 H 26 H Blood Pressure 119/58 L Pulse Oximetry 93 L 99 I&O: Intake & Output 08/16/18 08/17/18 08/18/18 08/19/18 06:59 06:59 06:59 06:59 Intake Total 3600 / 3600 0 / 0 Output Total 800 / 800 Balance 2800 / 2800 0 / 0 Weight 45.359 kg 52.1 kg Physical Exam: CONSTITUTIONAL/GENERAL: This is an chronically ill appearing male patient, in no apparent distress. TUBES/LINES/DRAINS: high flow oxygen, PIV, PEG tube, catheter. SKIN: No jaundice, rashes, or lesions. Ecchymoses on upper extremities. No wounds seen anteriorly. Skin temperature appropriate. Not diaphoretic. HEAD: Atraumatic. Normocephalic. EYES: Squeezes eyes shut when attempting to check pupillary response. ENT: Unable to assess hearing. Nose without bleeding or purulent drainage. Mouth closed. NECK: Trachea midline. Supple, nontender. No palpable thyroid enlargement or nodularity. CARDIOVASCULAR: Regular rate and rhythm without murmurs. Peripheral pulses symmetric. RESPIRATORY/CHEST: Scattered rhonchi, crackles noted. GASTROINTESTINAL: Abdomen soft, nondistended. No guarding. PEG tube. Bowel sounds present. GENITOURINARY: Without palpable bladder distension. catheter in place. MUSCULOSKELETAL: Extremities without clubbing, cyanosis, or edema. No mottling or clubbing. LYMPHATICS: No palpable cervical or supraclavicular adenopathy. NEUROLOGICAL: Stirs to voice and exam. Moans and withdraws to painful stimuli except left UE. Does not answer questions or follow commands for me. PSYCHIATRIC: encephalopathic. Diagnostic Tests Laboratory: Laboratory Results - last 72 hr 08/18/18 08/18/18 08/18/18 01:00 01:00 01:00 WBC 33.1 H RBC 2.84 L Hgb 8.2 L Hct 23.5 L MCV 82.8 MCH 28.7 MCHC 34.7 RDW 17.2 Plt Count 380 MPV 8.8 Prelim Diff (Auto) Manual diff required WBC Differential Manual diff final Seg Neuts % (Manual) 71 H Band Neuts % (Manual) 13 H Lymphocytes % (Manual) 6 L Monocytes % (Manual) 5 Metamyelocytes % (Man) 4 H Myelocytes % (Man) 1 H Abs Neuts (Manual) 29.5 H Nucleated RBCs/100 WBC 1 H Differential Comment . Toxic Vacuolation Present H Dohle Bodies Present H Platelet Estimate Normal Platelet Morphology Normal Keratocytes Occ H Puncture Site Patient Temperature O2 Saturation ABG pH ABG pCO2 ABG pO2 ABG HCO3 ABG O2 Content ABG Base Excess ABG Methemoglobin Hemoglobin Carboxyhemoglobin O2 Delivery Device Liter Flow Critical Value Sodium 129 L Potassium 5.5 H Chloride 89 L Carbon Dioxide 29.6 Anion Gap 10 BUN 92 H Creatinine 2.40 H Estimated GFR 34 L POC Glucose Random Glucose 200 H Lactic Acid 3.4 H Calcium 9.1 Magnesium 3.4 H Total Bilirubin 0.2 AST 26 ALT 32 Alkaline Phosphatase 100 Total Creatine Kinase 50 Troponin I Less than 0.02 L Total Protein 7.0 Albumin 2.5 L TSH 1.900 Urine Color Urine Clarity Urine pH Ur Specific [place] Urine Protein Urine Glucose (UA) Urine Ketones Urine Occult Blood Urine Nitrate Urine Bilirubin Urine Urobilinogen Ur Leukocyte Esterase Urine RBC Urine WBC Urine WBC Clumps Hyaline Casts Urine Mucus Micro UA Comment Ur Microscopic Review Urine Culture Comments 08/18/18 08/18/18 08/18/18 01:05 02:50 03:40 WBC RBC Hgb Hct MCV MCH MCHC RDW Plt Count MPV Prelim Diff (Auto) WBC Differential Seg Neuts % (Manual) Band Neuts % (Manual) Lymphocytes % (Manual) Monocytes % (Manual) Metamyelocytes % (Man) Myelocytes % (Man) Abs Neuts (Manual) Nucleated RBCs/100 WBC Differential Comment Toxic Vacuolation Dohle Bodies Platelet Estimate Platelet Morphology Keratocytes Puncture Site Right femoral Patient Temperature 98.6 O2 Saturation 95 ABG pH 7.49 H ABG pCO2 39 ABG pO2 81 ABG HCO3 29 H ABG O2 Content 10.2 L ABG Base Excess 5.5 H ABG Methemoglobin 0.8 Hemoglobin 7.6 L* Carboxyhemoglobin 2.3 O2 Delivery Device Partia rebreather mk Liter Flow 10.00 Critical Value Yes Sodium Potassium Chloride Carbon Dioxide Anion Gap BUN Creatinine Estimated GFR POC Glucose Random Glucose Lactic Acid 5.6 H* Calcium Magnesium Total Bilirubin AST ALT Alkaline Phosphatase Total Creatine Kinase Troponin I Total Protein Albumin TSH Urine Color [place] Urine Clarity Turbid H Urine pH 5.0 Ur Specific [place] 1.016 Urine Protein 30 H Urine Glucose (UA) Negative Urine Ketones Negative Urine Occult Blood Large H Urine Nitrate Negative Urine Bilirubin Negative Urine Urobilinogen Less than 2 Ur Leukocyte Esterase Large H Urine RBC 136 H Urine WBC Urine WBC Clumps Moderate H Hyaline Casts 9 Urine Mucus Few H Micro UA Comment Cath-culture ind Ur Microscopic Review Not Reportable Urine Culture Comments Cath-cult indicated 08/18/18 08:18 WBC RBC Hgb Hct MCV MCH MCHC RDW Plt Count MPV Prelim Diff (Auto) WBC Differential Seg Neuts % (Manual) Band Neuts % (Manual) Lymphocytes % (Manual) Monocytes % (Manual) Metamyelocytes % (Man) Myelocytes % (Man) Abs Neuts (Manual) Nucleated RBCs/100 WBC Differential Comment Toxic Vacuolation Dohle Bodies Platelet Estimate Platelet Morphology Keratocytes Puncture Site Patient Temperature O2 Saturation ABG pH ABG pCO2 ABG pO2 ABG HCO3 ABG O2 Content ABG Base Excess ABG Methemoglobin Hemoglobin Carboxyhemoglobin O2 Delivery Device Liter Flow Critical Value Sodium Potassium Chloride Carbon Dioxide Anion Gap BUN Creatinine Estimated GFR POC Glucose 250 H Random Glucose Lactic Acid Calcium Magnesium Total Bilirubin AST ALT Alkaline Phosphatase Total Creatine Kinase Troponin I Total Protein Albumin TSH Urine Color Urine Clarity Urine pH Ur Specific [place] Urine Protein Urine Glucose (UA) Urine Ketones Urine Occult Blood Urine Nitrate Urine Bilirubin Urine Urobilinogen Ur Leukocyte Esterase Urine RBC Urine WBC Urine WBC Clumps Hyaline Casts Urine Mucus Micro UA Comment Ur Microscopic Review Urine Culture Comments Result Diagrams: 08/18/18 01:00 08/18/18 12:58 Imaging: Chest X-Ray 08/18/18 00:00 CONCLUSION: Right lower lung consolidation or atelectasis which appears new. Head CT 08/18/18 00:56 CONCLUSION: 1. No acute intracranial abnormality. 2. 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 . Patient/Family Conference Present at Family Conference: Spoke with mother, Stephanieader via phone. Family Conference Time: 40 Family Conference Location: Telephone Issues Discussed: * Palliative care role, purpose, approach * Additional medical, psychosocial, and spiritual history * Patients general health, functional status, and cognitive changes in the months leading up to the current hospitalization * Patient/family understanding of the current medical problems * Patient/family understanding of prognosis * Patients goals of care as best understood from advance directives and/or conversations and/or values * Current medical treatment options and benefits/burdens of those options * Likely scenarios comparing ongoing aggressive care with a transition to comfort measures only * Questions answered to the best of my ability * Palliative care contact information provided Spoke with mother via telephone. She does not remember signing [place] DNR as found on chart. She elects FULL CODE and desires all aggressive care at this time. She is very appreciative for the time spent seems to have a good understanding of current medical conditions and potential problems. She understands that her son is at risk for further decline and is open to additional conversations regarding goals of care should his condition worsen. Assessment and Plan - Disease Oriented Problem List (1) Aspiration pneumonia (2) History of lacunar cerebrovascular accident (CVA) (3) HTN (hypertension) (4) Diabetes (5) Sepsis (6) Urinary tract infection - Symptom Scale (1) Weakness 0-10 Scale: Unable to quantify (2) Encephalopathy 0-10 Scale: Unable to quantify Pertinent Non-Medical Issues: Psychosocial: Single. No children. Has 2 brothers and 1 sister. Supported by his mother and aunt also. Spiritual: Ramez ferguson, wellfield technician visits requested. The last conversation his mother had with him, he was requesting that she bring him a Bible. Legal: Patient is not capacitated to make his own healthcare decisions, uncertain if he will regain capacity. Single. No children. According to [place] statutes, healthcare proxy decision making falls to his mother. Ethical issues impacting care: No known concerns at this time. Important Contacts: * Gilmer Patricia, mother: [phone] * Meri Ricardo, aunt: [phone] Prognosis: Mr. gomez is an unfortunate 62-year-old male with prior stroke, admitted with possible aspiration pneumonia, UTI, sepsis. While it appears he may survive this hospitalization he remains high risk for repeat infections, complications and further decline. May be hospice appropriate if goals are comfort oriented in the future. Code Status: Full Code Plan: * Patient is not capacitated to make his own healthcare decisions, uncertain if he will regain capacity. Single. No children. According to [place] statutes, healthcare proxy decision making falls to his mother, Gilmer Gomez. * FULL CODE * GOALS:Spoke with mother/ HCP, Gilmer Gomez to provide medical update. She desires continued aggressive care including FULL CODE. She does not remember signing the [place] DNR in the past. She welcomes continued conversations regarding goals of care should his condition/ prognosis change. She appreciates the call and time spent today. * Double Bottom Driver visits requested. Ramez ferguson. The last conversation his mother had with him, he was requesting that she bring him a Bible. * SYMPTOMS: Encephalopathy: Secondary to prior stroke, likely related to infection, hospitalization. Continue to monitor. Mother also reports that patient often does not speak unless he wants to. Weakness: Secondary to previous stroke residual left hemiplegia. * Palliative care number provided. * Palliative care will continue to follow throughout hospital course to assist with symptom management and further clarification of medical treatment goals. Appreciation Thank you for the opportunity to participate in the care of Cristhian Gomez III. Attestation Attestation: To help prompt me to consider important information that might be impacting today's encounter and assessment, information from prior notes written by myself or my colleagues may have been "brought forward" into today's note. My signature on this note, however, is an attestation that I personally performed the exam, history, and/or decision-making noted today, and, unless otherwise indicated, the interactions with patient, family, and staff as well as the review of records all occurred today. I also attest that the listed assessment and stated plan reflect my best clinical judgment today based on the combination of historical information, prior notes, and today's exam/ interactions. When time spent is documented, it refers only to time spent today by the signer, or if indicated, combined time spent today by collaborating physician/nurse practitioner.
[2018-08-18] MEDS: Insulin Detemir Inj 1,000 UNIT/10 ML Vial SQ SCH ×2 (10:14→20:17)
[2018-08-18] MEDS: Insulin NovoLOG Aspart Correctional Sugar Inj SQ SCH ×3 (10:14→19:21)
--- NOTE | 2018-08-18 11:49 | XR ---
EXAM DATE: 08/18/2018 11:30 AM EDT AGE/SEX: 62 years / Male INDICATIONS: Evaluate for pneumonia. CLINICAL DATA: This is the patient's subsequent encounter. Patient reports that signs and symptoms h ave been present for 4 - 6 days and indicates a pain score of Nonresponsive. MEDICAL/SURGICAL HISTORY: . Cerebrovascular disease. Hypertension. Diabetes mellitus type II. None. COMPARISON: [facility] [place], CHEST 1V SINGLE AP, 08/18/2018. . FINDINGS: Interval worsening in consolidative change in the right lung base. Left lung grossly clear. Accountin g for rotation, cardiac contours are unchanged. CONCLUSION: Worsening right base consolidation. Electronically signed by: Pawan Pino MD 08/18/2018 11:48 AM EDT
[2018-08-18 13:51] LABS: Calcium 7.4 mg/dL (8.5-10.1); Carbon Dioxide 24.3 meq/L (21.0-32.0); Potassium 4.7 meq/L (3.5-5.1)
--- NOTE | 2018-08-18 14:07 | P.DIET ---
Nutritional Evaluation Type of nutrition evaluation: initial Nutrition consult regarding: Tube Feeding Subjective Subjective Comments: Pt resides in a SNF and has residual L sided hemiplegia. Objective - Diagnosis Sepsis - Objective % IBW: 74 (IBW = 154#) Body Weight Used for Calculations: Actual (52.1 kg) Energy Needs - Lower Range (kCal/kg): 30 Energy Needs - Upper Range (kCal/kg): 35 Lower Limit kCal/kg (kCals): 1,563 Upper Limit kCal/kg (kCals): 1,824 Lower Limit Protein Factor (Grams per Kg): 1.2 Upper Limit Protein Factor (Grams per Kg): 1.6 Lower Protein Needs (Protein): 63 Upper Protein Needs (Protein): 83 Dietitian Reviewed in Medical Record: Curent medications, Intake & Output, Labs , Medical history, Tube feeding Diet Order: NPO Assessment Assessment: Pt is at high nutrition risk 2' to his need for TFing. To meet nutritional needs with Glucerna 1.5, recommend goal rate of 50 mls/hr to provide 1800 kcals , 99 gms protein and 911 mls of free water. Recommendations: Glucerna 1.5 @ 50 mls/hr goal Dietitian to Monitor: Lab values, Intake & Output, Tube feeding tolerance, Weight change, Wound/skin status, Medical course
[2018-08-18 14:08] LABS: Total Protein 5.9 g/dL (6.4-8.2)
--- NOTE | 2018-08-18 14:20 | P.PNCC ---
Subjective Subjective Remarks/Hospital Course: 62-year-old male presents from alf for an evaluation of altered mental status. As per the staff patient was altered mental status for past 8 hours and his symptoms progressively worsen. So the called 911. Patient was initially a DNR however his mother in the emergency department at the bedside requested a full code. He has a history of previous stroke and left-sided hemiplegia. 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 As per EMS his GCS was 4 when they arrived and after this started fluid he improved to 10. His blood pressure initially was 80 systolic and prior to getting inside the ER it was 100 systolic. Patient obviously was unable to give any history. Blood sugar was 220. Chest x-ray shows new infiltrate in the right lower lobe suggesting aspiration pneumonia. 08/18 1400 hrs: Lactic acid remains elevated at 2.7 but trending down. Creatinine has declined. Urine output improved. Repeat chest x-ray obtained because of worsening hypoxia. Blossoming of right middle and lower lobe pneumonia is apparent. He may well require intubation later today. Ongoing resuscitative efforts to treat his severe sepsis. Objective Vital Signs / I&O: Vital Signs 08/18/18 00:44 08/18/18 01:35 08/18/18 01:44 Temperature 97.4 F L Pulse Rate 100 H 96 H 96 H Respiratory Rate 30 H 28 H Blood Pressure 115/58 L 126/52 L Pulse Oximetry 95 95 95 08/18/18 02:50 08/18/18 03:22 08/18/18 03:46 Temperature Pulse Rate 98 H 94 H Respiratory Rate 24 24 Blood Pressure 139/65 137/68 Pulse Oximetry 96 92 L 08/18/18 04:03 08/18/18 04:30 08/18/18 05:15 Temperature Pulse Rate 101 H 96 H Respiratory Rate 28 H 24 30 H Blood Pressure 115/68 Pulse Oximetry 93 L 08/18/18 05:18 08/18/18 06:00 08/18/18 07:00 Temperature 98.7 F Pulse Rate 97 H 97 H 97 H Respiratory Rate 30 H 26 H 22 Blood Pressure 119/63 115/59 L 116/58 L Pulse Oximetry 100 95 94 L 08/18/18 08:00 08/18/18 08:22 08/18/18 08:50 Temperature 99.3 F Pulse Rate 99 H 99 H Respiratory Rate 29 H 26 H Blood Pressure 119/58 L Pulse Oximetry 93 L 99 93 L 08/18/18 09:00 08/18/18 09:30 08/18/18 10:00 Temperature Pulse Rate 102 H 103 H 102 H Respiratory Rate 27 H 28 H 26 H Blood Pressure 91/51 L 109/51 L 123/58 L Pulse Oximetry 84 L 79 L 94 L 08/18/18 11:00 08/18/18 11:30 08/18/18 12:00 Temperature 98.3 F Pulse Rate 103 H 101 H 101 H Respiratory Rate 20 23 32 H Blood Pressure 130/62 124/61 119/56 L Pulse Oximetry 100 99 96 08/18/18 12:12 Temperature Pulse Rate Respiratory Rate Blood Pressure Pulse Oximetry 100 Intake & Output 08/17/18 08/18/18 08/18/18 18:59 06:59 18:59 Intake Total 3600 / 3600 2150 / 2150 Output Total 800 / 800 700 / 700 Balance 2800 / 2800 1450 / 1450 Weight 45.359 kg 52.1 kg Intake: IV 3600 / 3600 2050 / 2050 NS Inj 1,000 ML @ 154 mls/hr IV 1000 / 1000 .CONT .Q6H30M JADA Rx#:[id number] Azithromycin Inj 500 MG In NS 250 / 250 Inj 250 ML @ 250 mls/hr IV.SIG Q24H JADA Rx#:[id number] Zosyn 3.375 GM Premix 50 ML @ 50 / 50 100 mls/hr IV.SIG Q6H JADA Rx#: [id number] Zosyn 4.5 GM Premix 4.5 gm In 100 / 100 100 ml @ 200 mls/hr IV.SIG ONCE ONE Rx#:[id number] NS Inj 1,000 ML @ Wide Open IV. 3000 / 3000 1000 / 1000 SIG BOLUS JADA Rx#:[id number] Vancomycin Inj 1,000 MG In NS 250 / 250 Inj 250 ML @ 250 mls/hr IV.SIG ONCE ONE Rx#:[id number] Tube Feeding 0 / 0 Water Bolus Amount 100 / 100 Output: Urine Amount (Catheter) 800 / 800 700 / 700 Condom 0 / 0 Indwelling Urethral Catheter 800 / 800 700 / 700 Other: Date of Last Bowel Movement 08/18/18 Weight On Admission 45.39 kg Result Diagrams: 08/18/18 01:00 08/18/18 12:58 Objective Remarks: - Constitutional chronically ill appearing, obtunded - Routine HEENT Exam Head: Present: normocephalic Eye: Present: PERRL, normal accommodation - Routine Neck Exam Present: supple, full ROM. Airway widely patent absent: JVD, carotid bruit - Routine Respiratory Exam Present: rhonchi, crackles. Respiratory effort is labored, oxygen saturation 97 % on high flow nasal cannula - Routine Cardiovascular Exam Present: RRR, S1, S2, no JVD - Routine Abdominal Exam Present: soft, normoactive bowel sounds. No guarding absent: tenderness - Routine Extremities Exam No deformity, warm, well-perfused. Absent: cyanosis, clubbing, edema - Routine Skin Exam Absent: intact, cyanosis, erythema - Routine Neurological Exam Present: altered mental status, uses right arm with purpose. Encephalopathy persists. Left-sided hemiplegia Assessment and Plan - Assessment and Plan Plan: Sepsis -Continue aggressive IV fluid hydration -Broad-spectrum antibiotic -Blood cultures -CXR new infiltrate -Likely pneumonia/aspiration -Serial lactic acid determination Pneumonia -Vancomycin and Zosyn Zithromax -DuoNeb's as needed Lactic acidosis -Due to above -Monitor trend -IV fluid hydration Hyperlipemia -Atorvastatin History of CVA -Aspirin -Atorvastatin -Cyclobenzaprine Anemia -Ferrous Sulfate -Monitor H&H -Transfuse as needed to keep hemoglobin above 7 Diabetes mellitus -Insulin Detemir -Insulin sliding scale DVT GI prophylaxis -Teds SCDs -Subcu heparin -Lansoprazole Overall impression: This gentleman presented in severe sepsis with major organ system dysfunction. He remains critically ill and his respiratory status has deteriorated following hydration. We will follow his resuscitation closely with serial lactic acid determination and blood pressure response. Critical care time 65 minutes aside from procedures.
[2018-08-18] MEDS: Dextrose 50% in Water 50 ML Vial IV.PUSH PRN ×2 (19:22→22:31)
[2018-08-19] MEDS: Sod Chloride 0.9% Inj 1,000 ML IV.CONT SCH ×2 (02:20→11:29)
[2018-08-19] MEDS: Piperacil/Tazo 3.375 GM Premix 50 ML IV.SIG SCH ×4 (02:46→20:34)
[2018-08-19] MEDS: Dextrose 50% in Water 50 ML Vial IV.PUSH PRN (03:12)
[2018-08-19] MEDS: Insulin NovoLOG Aspart Correctional Sugar Inj SQ SCH ×3 (03:13→13:10)
[2018-08-19 04:17] LABS: Baso # (Auto) 0.1 th/mm3 (0.0-0.2); Baso % (Auto) 0.4 % (0.0-2.0); Eos # (Auto) 0.2 th/mm3 (0.0-0.4); Lymph # (Auto) 0.7 th/mm3 (1.0-4.8); Mean Corpuscular HGB Conc 32.8 % (32.0-36.0); Mean Corpuscular Hemoglobin 27.5 pg (27.0-34.0); Mean Platelet Volume 8.6 fL (7.0-11.0); Mono # (Auto) 1.4 th/mm3 (0.0-0.9); Mono % (Auto) 5.8 % (0.0-8.0); Neut # (Auto) 21.7 th/mm3 (1.8-7.7); Neut % (Auto) 89.8 % (16.0-70.0); Platelet Count 321 th/mm3 (150-450); Red Blood Count 2.04 mil/mm3 (4.50-5.90); Red Cell Distribution Width 16.9 % (11.6-17.2); White Blood Count 24.1 th/mm3 (4.0-11.0)
[2018-08-19 04:21] LABS: Hematocrit 17.2 % (39.0-51.0); Hemoglobin 5.6 gm/dL (13.0-17.0)
[2018-08-19] MEDS: Azithromycin Inj 500 MG in Sodium Chlor 0.9% Inj 250 ML IV.SIG SCH (04:30)
[2018-08-19 04:36] LABS: Activated Partial Thrombo Time 28.5 sec (24.3-30.1); INR 1.2 Ratio; Prothrombin Time 12.3 sec (9.8-11.6)
[2018-08-19 04:47] LABS: Alanine Aminotransferase 28 U/L (12-78); Albumin 1.8 g/dL (3.4-5.0); Alkaline Phosphatase 89 U/L (45-117); Anion Gap 8 meq/L (5-15); Aspartate Aminotransferase 36 U/L (15-37); Blood Urea Nitrogen 27 mg/dL (7-18); Calcium 7.9 mg/dL (8.5-10.1); Carbon Dioxide 21.5 meq/L (21.0-32.0); Chloride 110 meq/L (98-107); Glomerular Filtration Rate Greater Than 89 mL/min (>89); Glucose,Random 87 mg/dL (74-106); Magnesium 2.2 mg/dL (1.5-2.5); Phosphorus 1.9 mg/dL (2.5-4.9); Potassium 4.8 meq/L (3.5-5.1); Total Protein 6.3 g/dL (6.4-8.2); Vancomycin,Random 4.8 Comment
[2018-08-19 04:48] LABS: Sodium 139 meq/L (136-145)
[2018-08-19] MEDS ORDERED: Sodium Chlor 0.9% Inj 250 ML IV.SIG SCH (05:00)
[2018-08-19] MEDS: Chlorhexidine Gluconate 2% 1 Pack (2 Cloths) TOPICAL SCH (05:01)
[2018-08-19] MEDS: Dextrose 10% in Water Inj 1,000 ML IV.CONT SCH (05:01)
[2018-08-19 05:10] LABS: Eosinophils 2 % (0-4); Lymphocytes 5 % (9-44); Monocytes 3 % (0-8)
[2018-08-19 05:11] LABS: Path Slide Review N; Platelet Morphology Normal (Normal)
[2018-08-19 05:12] LABS: Acanthocytes Occ; Target Cells 1+; Toxic Granulation 1+
[2018-08-19] MEDS: Heparin - SQ 10,000 UNITS/ML Vial SQ SCH ×2 (05:56→13:11)
--- NOTE | 2018-08-19 08:26 | P.PNCC ---
Subjective Subjective Remarks/Hospital Course: 62-year-old male [facility] for an evaluation of altered mental status. As per the staff patient was altered mental status for past 8 hours and his symptoms progressively worsen. So the called 911. Patient was initially a DNR however his mother in the emergency department at the bedside requested a full code. He has a history of previous stroke and left-sided hemiplegia. 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 As per EMS his GCS was 4 when they arrived and after this started fluid he improved to 10. His blood pressure initially was 80 systolic and prior to getting inside the ER it was 100 systolic. Patient obviously was unable to give any history. Blood sugar was 220. Chest x-ray shows new infiltrate in the right lower lobe suggesting aspiration pneumonia. 08/18 1400 hrs: Lactic acid remains elevated at 2.7 but trending down. Creatinine has declined. Urine output improved. Repeat chest x-ray obtained because of worsening hypoxia. Blossoming of right middle and lower lobe pneumonia is apparent. He may well require intubation later today. Ongoing resuscitative efforts to treat his severe sepsis. 08/19: Urine output excellent and renal function continues to improve. Oxygen saturation acceptable but still requiring high flow nasal cannula. We will start using his PEG tube again. Chest x-ray today confirms right middle and lower lobe pneumonia. Cardiac silhouette is quite large and pulmonary vasculature is prominent. He still requires 37 L/min high flow oxygen to maintain sats greater than 90%. Objective Vital Signs / I&O: Vital Signs 08/18/18 08:22 08/18/18 08:50 08/18/18 09:00 Temperature Pulse Rate 99 H 102 H Respiratory Rate 26 H 27 H Blood Pressure 91/51 L Pulse Oximetry 99 93 L 84 L 08/18/18 09:30 08/18/18 10:00 08/18/18 11:00 Temperature Pulse Rate 103 H 102 H 103 H Respiratory Rate 28 H 26 H 20 Blood Pressure 109/51 L 123/58 L 130/62 Pulse Oximetry 79 L 94 L 100 08/18/18 11:30 08/18/18 12:00 08/18/18 12:12 Temperature 98.3 F Pulse Rate 101 H 101 H Respiratory Rate 23 32 H Blood Pressure 124/61 119/56 L Pulse Oximetry 99 96 100 08/18/18 13:00 08/18/18 13:30 08/18/18 14:00 Temperature Pulse Rate 98 H 100 H 99 H Respiratory Rate 21 18 18 Blood Pressure 120/63 132/63 129/60 Pulse Oximetry 91 L 93 L 98 08/18/18 15:00 08/18/18 15:30 08/18/18 15:40 Temperature Pulse Rate 101 H 100 H 99 H Respiratory Rate 24 21 26 H Blood Pressure 130/65 132/60 Pulse Oximetry 91 L 92 L 94 L 08/18/18 16:00 08/18/18 17:00 08/18/18 17:30 Temperature 100.4 F H Pulse Rate 98 H 98 H 97 H Respiratory Rate 22 20 25 H Blood Pressure 138/55 L 130/94 H 124/60 Pulse Oximetry 93 L 94 L 97 08/18/18 18:00 08/18/18 19:00 08/18/18 19:48 Temperature Pulse Rate 93 H 90 95 H Respiratory Rate 20 19 22 Blood Pressure 130/101 H 144/65 H Pulse Oximetry 92 L 98 08/18/18 19:49 08/18/18 20:00 08/18/18 21:00 Temperature 98.7 F Pulse Rate 95 H 96 H Respiratory Rate 21 22 Blood Pressure 154/67 H 130/57 L Pulse Oximetry 94 L 98 94 L 08/18/18 22:00 08/19/18 00:00 08/19/18 03:24 Temperature 98.8 F Pulse Rate 94 H 96 H 98 H Respiratory Rate 29 H 24 22 Blood Pressure 172/75 H 166/94 H Pulse Oximetry 97 97 08/19/18 04:00 08/19/18 07:09 Temperature 99.9 F H 99.8 F H Pulse Rate 100 H 95 H Respiratory Rate 17 20 Blood Pressure 143/65 H 131/62 Pulse Oximetry 99 93 L Intake & Output 08/18/18 08/19/18 08/19/18 18:59 06:59 18:59 Intake Total 3200 / 3200 1100 / 1100 0 / 0 Output Total 1425 / 1425 1000 / 1000 Balance 1775 / 1775 100 / 100 0 / 0 Weight 52.1 kg 56.4 kg Intake: IV 3100 / 3100 1100 / 1100 NS Inj 1,000 ML @ 125 mls/hr IV 1999 / 1999 1000 / 1000 .CONT .Q8H JADA Rx#:[id number] Zosyn 3.375 GM Premix 50 ML @ 100 / 100 100 / 100 100 mls/hr IV.SIG Q6H JADA Rx#: [id number] NS Inj 1,000 ML @ Wide Open IV. 1000 / 1000 SIG BOLUS JADA Rx#:[id number] Tube Feeding 0 / 0 Water Bolus Amount 100 / 100 Intake (Blood Product) Amt 0 / 0 Rbc As-3 Leukoreduced Unit 0 / 0 [id number] Output: Urine 0 / 0 Urine Amount (Catheter) 1425 / 1425 1000 / 1000 Condom 725 / 725 1000 / 1000 Indwelling Urethral Catheter 700 / 700 Other: Date of Last Bowel Movement 08/18/18 08/19/18 # Bowel Movements 1 # Incontinent Bowel Movements 1 Weight On Admission 45.39 kg Result Diagrams: 08/19/18 04:03 08/19/18 04:05 Objective Remarks: - Constitutional chronically ill appearing, minimally responsive - Routine HEENT Exam Head: Present: normocephalic Eye: Present: PERRL, normal accommodation - Routine Neck Exam Present: supple, full ROM. Airway widely patent absent: JVD, carotid bruit - Routine Respiratory Exam Present: rhonchi, crackles. Respiratory effort is labored, oxygen saturation 97 % on high flow nasal cannula - Routine Cardiovascular Exam Present: RRR, S1, S2, no JVD - Routine Abdominal Exam Present: soft, normoactive bowel sounds. No guarding absent: tenderness - Routine Extremities Exam No deformity, warm, well-perfused. Absent: cyanosis, clubbing, edema - Routine Skin Exam Absent: intact, cyanosis, erythema - Routine Neurological Exam Present: altered mental status, uses right arm with purpose. Encephalopathy persists. Left-sided hemiplegia Assessment and Plan - Assessment and Plan Plan: Sepsis -Continue aggressive IV fluid hydration -Broad-spectrum antibiotic -Blood cultures -CXR new infiltrate -Likely pneumonia/aspiration -Serial lactic acid determination Pneumonia -Vancomycin and Zosyn Zithromax -DuoNeb's as needed Lactic acidosis -Due to above -Monitor trend -IV fluid hydration Hyperlipemia -Atorvastatin History of CVA -Aspirin -Atorvastatin -Cyclobenzaprine Anemia -Ferrous Sulfate -Monitor H&H -Transfuse as needed to keep hemoglobin above 7 -Transfuse 2 units packed red blood cells for hemoglobin 6 Diabetes mellitus -Insulin Detemir -Insulin sliding scale DVT GI prophylaxis -Teds SCDs -Subcu heparin -Lansoprazole Overall impression: This gentleman presented in severe sepsis with major organ system dysfunction. He remains critically ill and his respiratory status initially deteriorated following hydration. He demonstrates acceptable peripheral perfusion and resolution of renal dysfunction. He may well yet require intubation and mechanical ventilation. Critical care time 38minutes aside from procedures.
[2018-08-19] MEDS: Senna/Docusate Sodium 8.6/50 MG Tablet PO SCH ×2 (09:05→20:36)
[2018-08-19] MEDS: Aspirin 325 MG Tablet G-TUBE SCH (10:19)
[2018-08-19] MEDS: Ferrrous Sulfate 300 MG/5 ML UDC G-TUBE SCH (10:59)
[2018-08-19] MEDS: Vancomycin Inj 1,000 MG in Sodium Chlor 0.9% Inj 250 ML IV.SIG SCH (11:03)
[2018-08-19] MEDS: Ferrous Sulfate 325 MG Tablet PO SCH (11:29)
--- NOTE | 2018-08-19 11:30 | XR ---
EXAM DATE: 08/19/2018 9:34 AM EDT AGE/SEX: 62 years / Male INDICATIONS: Pneumonia. CLINICAL DATA: This is the patient's initial encounter. Patient reports that signs and symptoms have been present for 4 - 6 days and indicates a pain score of Nonresponsive. MEDICAL/SURGICAL HISTORY: Hypertension. Stroke. diabetes . no one known [place] [facility] [place]. . FINDINGS: Progressive hazy opacity and airspace consolidation in the right lower lung zone. Mild airspace conso lidation at the left lung base. Cardiomediastinal contours are stable. Remainder of the exam is uncha nged. CONCLUSION: 1. Worsening moderate right-sided pleural effusion and associated airspace consolidation. 2. Persistent mild left lung base airspace consolidation, presumably atelectasis. Electronically signed by: Berry Gillis MD 08/19/2018 11:29 AM EDT
--- NOTE | 2018-08-19 18:07 | P.PNPAL ---
Reason for Visit Reason for visit: a. To assist with evaluation and management of symptoms including:altered mental status, dyspnea. b. To assist medical decision maker(s) with: better understanding of current medical conditions; weighing benefits/burdens of medical treatment options; making medical treatment decisions. Subjective Subjective/Interval History: Patient seen and examined in ICU. No family at bedside. Patient remains on high flow oxygen. Chest x-ray revealed worsening moderate right-sided pleural effusion and associated airspace consolidation, persistent mild left lung base airspace consolidation presumably atelectasis. Hemoglobin has dropped from 8.2- 5.6. Mother has consented for blood transfusion. Urine culture probable contaminant and blood cultures are negative to date. Patient moans intermittently during my visit. He does not speak to me, does not follow commands, does not nod yes or no to any questions. He continues to tap his lip with his right finger, I do not see any obvious abnormality, he will not open his mouth on command I am unable to tell if he is having pain in his mouth. Family/Friend Interactions: Spoke with his mother via telephone to provide medical update. Reviewed test results from today including imaging and lab work. Advised that there is still a possibility that the patient may end up on mechanical ventilation, she hopes that this will not happen. She welcomes continued palliative care conversations and updates. She is very appreciative for the time spent. Again palliative care number provided. Advance Directives Health Care Surrogate Name and Number: Health care proxy deicsion maker, mother : Edweader Page: [phone] Significant change in goals:: FULL CODE. Mother desires continued aggressive care. Objective Vital Signs: Vital Signs 08/18/18 19:00 08/18/18 19:48 08/18/18 19:49 Temperature Pulse Rate 90 95 H Respiratory Rate 19 22 Blood Pressure 144/65 H Pulse Oximetry 98 94 L 08/18/18 20:00 08/18/18 21:00 08/18/18 22:00 Temperature 98.7 F Pulse Rate 95 H 96 H 94 H Respiratory Rate 21 22 29 H Blood Pressure 154/67 H 130/57 L 172/75 H Pulse Oximetry 98 94 L 97 08/19/18 00:00 08/19/18 03:24 08/19/18 04:00 Temperature 98.8 F 99.9 F H Pulse Rate 96 H 98 H 100 H Respiratory Rate 24 22 17 Blood Pressure 166/94 H 143/65 H Pulse Oximetry 97 99 08/19/18 07:09 08/19/18 07:25 08/19/18 08:00 Temperature 99.8 F H 99.7 F H 99.7 F H Pulse Rate 95 H 92 H 96 H Respiratory Rate 20 15 17 Blood Pressure 131/62 137/63 137/71 Pulse Oximetry 93 L 94 L 94 L 08/19/18 09:39 08/19/18 09:55 08/19/18 12:00 Temperature 99.7 F H 99.7 F H 99.8 F H Pulse Rate 96 H 94 H 98 H Respiratory Rate 22 20 23 Blood Pressure 147/72 H 155/73 H 168/76 H Pulse Oximetry 92 L 92 L 91 L 08/19/18 16:00 08/19/18 16:15 08/19/18 16:30 Temperature 99.8 F H Pulse Rate 100 H 90 Respiratory Rate 17 24 Blood Pressure 177/81 H 131/70 Pulse Oximetry 98 95 Intake & Output 08/18/18 08/19/18 08/19/18 18:59 06:59 18:59 Intake Total 3200 / 3200 1100 / 1100 1400 / 1400 Output Total 1425 / 1425 1000 / 1000 Balance 1775 / 1775 100 / 100 1400 / 1400 Weight 52.1 kg 56.4 kg Intake: IV 3100 / 3100 1100 / 1100 1000 / 1000 NS Inj 1,000 ML @ 125 mls/hr IV 2000 / 2000 1000 / 1000 400 / 400 .CONT .Q8H JADA Rx#:[id number] Azithromycin Inj 500 MG In NS 250 / 250 Inj 250 ML @ 250 mls/hr IV.SIG Q24H JADA Rx#:[id number] Zosyn 3.375 GM Premix 50 ML @ 100 / 100 100 / 100 100 / 100 100 mls/hr IV.SIG Q6H JADA Rx#: [id number] NS Inj 1,000 ML @ Wide Open IV. 1000 / 1000 SIG BOLUS JADA Rx#:[id number] Vancomycin Inj 1,000 MG In NS 250 / 250 Inj 250 ML @ 250 mls/hr IV.SIG Q12H JADA Rx#:[id number] Tube Feeding 0 / 0 Water Bolus Amount 100 / 100 Intake (Blood Product) Amt 400 / 400 Rbc As-3 Leukoreduced Unit 400 / 400 [id number] Rbc As-3 Leukoreduced Unit 0 / 0 [id number] Output: Urine 0 / 0 Urine Amount (Catheter) 1425 / 1425 1000 / 1000 Condom 725 / 725 1000 / 1000 Indwelling Urethral Catheter 700 / 700 Other: Date of Last Bowel Movement 08/18/18 08/19/18 08/19/18 # Bowel Movements 1 # Incontinent Bowel Movements 1 Weight On Admission 45.39 kg Physical Exam: CONSTITUTIONAL/GENERAL: This is an chronically ill appearing male patient, in no apparent distress. TUBES/LINES/DRAINS: high flow oxygen, PIV, PEG tube, catheter. SKIN: No jaundice, rashes, or lesions. Ecchymoses on upper extremities. No wounds seen anteriorly. Skin temperature appropriate. Not diaphoretic. EYES: Squeezes eyes shut when attempting to check pupillary response. ENT: Unable to assess hearing. Nose without bleeding or purulent drainage. Mouth closed. Dry lips. NECK: Trachea midline. CARDIOVASCULAR: Regular rate and rhythm without murmurs. Peripheral pulses symmetric. RESPIRATORY/CHEST: Scattered rhonchi, crackles noted. GASTROINTESTINAL: Abdomen soft, nondistended. No guarding. PEG tube. Bowel sounds present. GENITOURINARY: Without palpable bladder distension. catheter in place. MUSCULOSKELETAL: Extremities without clubbing, cyanosis, or edema. No mottling or clubbing. NEUROLOGICAL: Stirs to voice and exam. Moans and withdraws to painful stimuli except left UE. Does not answer questions or follow commands for me. PSYCHIATRIC: encephalopathic. Diagnostic Tests Laboratory: Laboratory Results - last 72 hr 08/18/18 08/18/18 08/18/18 01:00 01:00 01:00 WBC 33.1 H RBC 2.84 L Hgb 8.2 L Hct 23.5 L MCV 82.8 MCH 28.7 MCHC 34.7 RDW 17.2 Plt Count 380 MPV 8.8 Prelim Diff (Auto) Manual diff required Neut % (Auto) Lymph % (Auto) Lares % (Auto) Eos % (Auto) Baso % (Auto) Neut # (Auto) Lymph # (Auto) Lares # (Auto) Eos # (Auto) Baso # (Auto) WBC Differential Manual diff final Seg Neuts % (Manual) 71 H Band Neuts % (Manual) 13 H Lymphocytes % (Manual) 6 L Monocytes % (Manual) 5 Eosinophils % (Manual) Basophils % (Manual) Metamyelocytes % (Man) 4 H Myelocytes % (Man) 1 H Abs Neuts (Manual) 29.5 H Nucleated RBCs/100 WBC 1 H Differential Comment . Toxic Granulation Toxic Vacuolation Present H Dohle Bodies Present H Platelet Estimate Normal Platelet Morphology Normal Target Cells Acanthocytes (Spur) Keratocytes Occ H PT INR APTT Puncture Site Patient Temperature O2 Saturation ABG pH ABG pCO2 ABG pO2 ABG HCO3 ABG O2 Content ABG Base Excess ABG Methemoglobin Hemoglobin Carboxyhemoglobin O2 Delivery Device Liter Flow Critical Value Sodium 129 L Potassium 5.5 H Chloride 89 L Carbon Dioxide 29.6 Anion Gap 10 BUN 92 H Creatinine 2.40 H Estimated GFR 34 L POC Glucose Random Glucose 200 H Lactic Acid 3.4 H Calcium 9.1 Prot Corrected Calcium Phosphorus Magnesium 3.4 H Total Bilirubin 0.2 AST 26 ALT 32 Alkaline Phosphatase 100 Total Creatine Kinase 50 Troponin I Less than 0.02 L B-Natriuretic Peptide Total Protein 7.0 Albumin 2.5 L TSH 1.900 Urine Color Urine Clarity Urine pH Ur Specific [place] Urine Protein Urine Glucose (UA) Urine Ketones Urine Occult Blood Urine Nitrate Urine Bilirubin Urine Urobilinogen Ur Leukocyte Esterase Urine RBC Urine WBC Urine WBC Clumps Hyaline Casts Urine Mucus Micro UA Comment Ur Microscopic Review Urine Culture Comments Nasal Screen MRSA (PCR) Random Vancomycin Blood Type Antibody Screen MTS Gel Crossmatch 08/18/18 08/18/18 08/18/18 01:05 02:50 03:40 WBC RBC Hgb Hct MCV MCH MCHC RDW Plt Count MPV Prelim Diff (Auto) Neut % (Auto) Lymph % (Auto) Lares % (Auto) Eos % (Auto) Baso % (Auto) Neut # (Auto) Lymph # (Auto) Lares # (Auto) Eos # (Auto) Baso # (Auto) WBC Differential Seg Neuts % (Manual) Band Neuts % (Manual) Lymphocytes % (Manual) Monocytes % (Manual) Eosinophils % (Manual) Basophils % (Manual) Metamyelocytes % (Man) Myelocytes % (Man) Abs Neuts (Manual) Nucleated RBCs/100 WBC Differential Comment Toxic Granulation Toxic Vacuolation Dohle Bodies Platelet Estimate Platelet Morphology Target Cells Acanthocytes (Spur) Keratocytes PT INR APTT Puncture Site Right femoral Patient Temperature 98.6 O2 Saturation 95 ABG pH 7.49 H ABG pCO2 39 ABG pO2 81 ABG HCO3 29 H ABG O2 Content 10.2 L ABG Base Excess 5.5 H ABG Methemoglobin 0.8 Hemoglobin 7.6 L* Carboxyhemoglobin 2.3 O2 Delivery Device Partia rebreather mk Liter Flow 10.00 Critical Value Yes Sodium Potassium Chloride Carbon Dioxide Anion Gap BUN Creatinine Estimated GFR POC Glucose Random Glucose Lactic Acid 5.6 H* Calcium Prot Corrected Calcium Phosphorus Magnesium Total Bilirubin AST ALT Alkaline Phosphatase Total Creatine Kinase Troponin I B-Natriuretic Peptide Total Protein Albumin TSH Urine Color [place] Urine Clarity Turbid H Urine pH 5.0 Ur Specific [place] 1.016 Urine Protein 30 H Urine Glucose (UA) Negative Urine Ketones Negative Urine Occult Blood Large H Urine Nitrate Negative Urine Bilirubin Negative Urine Urobilinogen Less than 2 Ur Leukocyte Esterase Large H Urine RBC 136 H Urine WBC Urine WBC Clumps Moderate H Hyaline Casts 9 Urine Mucus Few H Micro UA Comment Cath-culture ind Ur Microscopic Review Not Reportable Urine Culture Comments Cath-cult indicated Nasal Screen MRSA (PCR) Random Vancomycin Blood Type Antibody Screen MTS Gel Crossmatch 08/18/18 08/18/18 08/18/18 06:36 08:18 12:00 WBC RBC Hgb Hct MCV MCH MCHC RDW Plt Count MPV Prelim Diff (Auto) Neut % (Auto) Lymph % (Auto) Lares % (Auto) Eos % (Auto) Baso % (Auto) Neut # (Auto) Lymph # (Auto) Lares # (Auto) Eos # (Auto) Baso # (Auto) WBC Differential Seg Neuts % (Manual) Band Neuts % (Manual) Lymphocytes % (Manual) Monocytes % (Manual) Eosinophils % (Manual) Basophils % (Manual) Metamyelocytes % (Man) Myelocytes % (Man) Abs Neuts (Manual) Nucleated RBCs/100 WBC Differential Comment Toxic Granulation Toxic Vacuolation Dohle Bodies Platelet Estimate Platelet Morphology Target Cells Acanthocytes (Spur) Keratocytes PT INR APTT Puncture Site Patient Temperature O2 Saturation ABG pH ABG pCO2 ABG pO2 ABG HCO3 ABG O2 Content ABG Base Excess ABG Methemoglobin Hemoglobin Carboxyhemoglobin O2 Delivery Device Liter Flow Critical Value Sodium Potassium Chloride Carbon Dioxide Anion Gap BUN Creatinine Estimated GFR POC Glucose 250 H 219 H Random Glucose Lactic Acid Calcium Prot Corrected Calcium Phosphorus Magnesium Total Bilirubin AST ALT Alkaline Phosphatase Total Creatine Kinase Troponin I B-Natriuretic Peptide Total Protein Albumin TSH Urine Color Urine Clarity Urine pH Ur Specific [place] Urine Protein Urine Glucose (UA) Urine Ketones Urine Occult Blood Urine Nitrate Urine Bilirubin Urine Urobilinogen Ur Leukocyte Esterase Urine RBC Urine WBC Urine WBC Clumps Hyaline Casts Urine Mucus Micro UA Comment Ur Microscopic Review Urine Culture Comments Nasal Screen MRSA (PCR) Mrsa detected Random Vancomycin Blood Type Antibody Screen MTS Gel Crossmatch 08/18/18 08/18/18 08/18/18 12:58 12:58 18:50 WBC RBC Hgb Hct MCV MCH MCHC RDW Plt Count MPV Prelim Diff (Auto) Neut % (Auto) Lymph % (Auto) Lares % (Auto) Eos % (Auto) Baso % (Auto) Neut # (Auto) Lymph # (Auto) Lares # (Auto) Eos # (Auto) Baso # (Auto) WBC Differential Seg Neuts % (Manual) Band Neuts % (Manual) Lymphocytes % (Manual) Monocytes % (Manual) Eosinophils % (Manual) Basophils % (Manual) Metamyelocytes % (Man) Myelocytes % (Man) Abs Neuts (Manual) Nucleated RBCs/100 WBC Differential Comment Toxic Granulation Toxic Vacuolation Dohle Bodies Platelet Estimate Platelet Morphology Target Cells Acanthocytes (Spur) Keratocytes PT INR APTT Puncture Site Patient Temperature O2 Saturation ABG pH ABG pCO2 ABG pO2 ABG HCO3 ABG O2 Content ABG Base Excess ABG Methemoglobin Hemoglobin Carboxyhemoglobin O2 Delivery Device Liter Flow Critical Value Sodium 138 Potassium 4.7 D Chloride 107 D Carbon Dioxide 24.3 Anion Gap 7 BUN 51 H Creatinine 1.25 Estimated GFR 71 L POC Glucose 50 L Random Glucose 183 H Lactic Acid 2.7 H Calcium 7.4 L* D Prot Corrected Calcium 8.1 L Phosphorus Magnesium Total Bilirubin AST ALT Alkaline Phosphatase Total Creatine Kinase Troponin I B-Natriuretic Peptide Total Protein 5.9 L D Albumin TSH Urine Color Urine Clarity Urine pH Ur Specific [place] Urine Protein Urine Glucose (UA) Urine Ketones Urine Occult Blood Urine Nitrate Urine Bilirubin Urine Urobilinogen Ur Leukocyte Esterase Urine RBC Urine WBC Urine WBC Clumps Hyaline Casts Urine Mucus Micro UA Comment Ur Microscopic Review Urine Culture Comments Nasal Screen MRSA (PCR) Random Vancomycin Blood Type Antibody Screen MTS Gel Crossmatch 08/18/18 08/18/18 08/18/18 18:58 19:19 19:33 WBC RBC Hgb Hct MCV MCH MCHC RDW Plt Count MPV Prelim Diff (Auto) Neut % (Auto) Lymph % (Auto) Lares % (Auto) Eos % (Auto) Baso % (Auto) Neut # (Auto) Lymph # (Auto) Lares # (Auto) Eos # (Auto) Baso # (Auto) WBC Differential Seg Neuts % (Manual) Band Neuts % (Manual) Lymphocytes % (Manual) Monocytes % (Manual) Eosinophils % (Manual) Basophils % (Manual) Metamyelocytes % (Man) Myelocytes % (Man) Abs Neuts (Manual) Nucleated RBCs/100 WBC Differential Comment Toxic Granulation Toxic Vacuolation Dohle Bodies Platelet Estimate Platelet Morphology Target Cells Acanthocytes (Spur) Keratocytes PT INR APTT Puncture Site Patient Temperature O2 Saturation ABG pH ABG pCO2 ABG pO2 ABG HCO3 ABG O2 Content ABG Base Excess ABG Methemoglobin Hemoglobin Carboxyhemoglobin O2 Delivery Device Liter Flow Critical Value Sodium Potassium Chloride Carbon Dioxide Anion Gap BUN Creatinine Estimated GFR POC Glucose 49 L* 41 L* 218 H Random Glucose Lactic Acid Calcium Prot Corrected Calcium Phosphorus Magnesium Total Bilirubin AST ALT Alkaline Phosphatase Total Creatine Kinase Troponin I B-Natriuretic Peptide Total Protein Albumin TSH Urine Color Urine Clarity Urine pH Ur Specific [place] Urine Protein Urine Glucose (UA) Urine Ketones Urine Occult Blood Urine Nitrate Urine Bilirubin Urine Urobilinogen Ur Leukocyte Esterase Urine RBC Urine WBC Urine WBC Clumps Hyaline Casts Urine Mucus Micro UA Comment Ur Microscopic Review Urine Culture Comments Nasal Screen MRSA (PCR) Random Vancomycin Blood Type Antibody Screen MTS Gel Crossmatch 08/18/18 08/18/18 08/18/18 19:45 21:00 22:15 WBC RBC Hgb Hct MCV MCH MCHC RDW Plt Count MPV Prelim Diff (Auto) Neut % (Auto) Lymph % (Auto) Lares % (Auto) Eos % (Auto) Baso % (Auto) Neut # (Auto) Lymph # (Auto) Lares # (Auto) Eos # (Auto) Baso # (Auto) WBC Differential Seg Neuts % (Manual) Band Neuts % (Manual) Lymphocytes % (Manual) Monocytes % (Manual) Eosinophils % (Manual) Basophils % (Manual) Metamyelocytes % (Man) Myelocytes % (Man) Abs Neuts (Manual) Nucleated RBCs/100 WBC Differential Comment Toxic Granulation Toxic Vacuolation Dohle Bodies Platelet Estimate Platelet Morphology Target Cells Acanthocytes (Spur) Keratocytes PT INR APTT Puncture Site Patient Temperature O2 Saturation ABG pH ABG pCO2 ABG pO2 ABG HCO3 ABG O2 Content ABG Base Excess ABG Methemoglobin Hemoglobin Carboxyhemoglobin O2 Delivery Device Liter Flow Critical Value Sodium Potassium Chloride Carbon Dioxide Anion Gap BUN Creatinine Estimated GFR POC Glucose 110 66 L Random Glucose 137 H Lactic Acid Calcium Prot Corrected Calcium Phosphorus Magnesium Total Bilirubin AST ALT Alkaline Phosphatase Total Creatine Kinase Troponin I B-Natriuretic Peptide Total Protein Albumin TSH Urine Color Urine Clarity Urine pH Ur Specific [place] Urine Protein Urine Glucose (UA) Urine Ketones Urine Occult Blood Urine Nitrate Urine Bilirubin Urine Urobilinogen Ur Leukocyte Esterase Urine RBC Urine WBC Urine WBC Clumps Hyaline Casts Urine Mucus Micro UA Comment Ur Microscopic Review Urine Culture Comments Nasal Screen MRSA (PCR) Random Vancomycin Blood Type Antibody Screen MTS Gel Crossmatch 08/18/18 08/18/18 08/19/18 22:33 23:50 02:37 WBC RBC Hgb Hct MCV MCH MCHC RDW Plt Count MPV Prelim Diff (Auto) Neut % (Auto) Lymph % (Auto) Lares % (Auto) Eos % (Auto) Baso % (Auto) Neut # (Auto) Lymph # (Auto) Lares # (Auto) Eos # (Auto) Baso # (Auto) WBC Differential Seg Neuts % (Manual) Band Neuts % (Manual) Lymphocytes % (Manual) Monocytes % (Manual) Eosinophils % (Manual) Basophils % (Manual) Metamyelocytes % (Man) Myelocytes % (Man) Abs Neuts (Manual) Nucleated RBCs/100 WBC Differential Comment Toxic Granulation Toxic Vacuolation Dohle Bodies Platelet Estimate Platelet Morphology Target Cells Acanthocytes (Spur) Keratocytes PT INR APTT Puncture Site Patient Temperature O2 Saturation ABG pH ABG pCO2 ABG pO2 ABG HCO3 ABG O2 Content ABG Base Excess ABG Methemoglobin Hemoglobin Carboxyhemoglobin O2 Delivery Device Liter Flow Critical Value Sodium Potassium Chloride Carbon Dioxide Anion Gap BUN Creatinine Estimated GFR POC Glucose 158 H 106 53 L Random Glucose Lactic Acid Calcium Prot Corrected Calcium Phosphorus Magnesium Total Bilirubin AST ALT Alkaline Phosphatase Total Creatine Kinase Troponin I B-Natriuretic Peptide Total Protein Albumin TSH Urine Color Urine Clarity Urine pH Ur Specific [place] Urine Protein Urine Glucose (UA) Urine Ketones Urine Occult Blood Urine Nitrate Urine Bilirubin Urine Urobilinogen Ur Leukocyte Esterase Urine RBC Urine WBC Urine WBC Clumps Hyaline Casts Urine Mucus Micro UA Comment Ur Microscopic Review Urine Culture Comments Nasal Screen MRSA (PCR) Random Vancomycin Blood Type Antibody Screen MTS Gel Crossmatch 08/19/18 08/19/18 08/19/18 03:11 04:03 04:03 WBC 24.1 H RBC 2.04 L Hgb 5.6 L* D Hct 17.2 L* MCV 84.0 MCH 27.5 MCHC 32.8 RDW 16.9 Plt Count 321 MPV 8.6 Prelim Diff (Auto) Slide review pending Neut % (Auto) 89.8 H Lymph % (Auto) 3.0 L Lares % (Auto) 5.8 Eos % (Auto) 1.0 Baso % (Auto) 0.4 Neut # (Auto) 21.7 H Lymph # (Auto) 0.7 L [place] # (Auto) 1.4 H Eos # (Auto) 0.2 Baso # (Auto) 0.1 WBC Differential Manual diff final Seg Neuts % (Manual) 70 Band Neuts % (Manual) 19 H Lymphocytes % (Manual) 5 L Monocytes % (Manual) 3 Eosinophils % (Manual) 2 Basophils % (Manual) 1 Metamyelocytes % (Man) Myelocytes % (Man) Abs Neuts (Manual) 21.4 H Nucleated RBCs/100 WBC Differential Comment . Toxic Granulation 1+ H Toxic Vacuolation Dohle Bodies Platelet Estimate Platelet Morphology Normal Target Cells 1+ H Acanthocytes (Spur) Occ H Keratocytes Occ H PT 12.3 H INR 1.2 APTT 28.5 Puncture Site Patient Temperature O2 Saturation ABG pH ABG pCO2 ABG pO2 ABG HCO3 ABG O2 Content ABG Base Excess ABG Methemoglobin Hemoglobin Carboxyhemoglobin O2 Delivery Device Liter Flow Critical Value Sodium Potassium Chloride Carbon Dioxide Anion Gap BUN Creatinine Estimated GFR POC Glucose 134 H Random Glucose Lactic Acid Calcium Prot Corrected Calcium Phosphorus Magnesium Total Bilirubin AST ALT Alkaline Phosphatase Total Creatine Kinase Troponin I B-Natriuretic Peptide Total Protein Albumin TSH Urine Color Urine Clarity Urine pH Ur Specific [place] Urine Protein Urine Glucose (UA) Urine Ketones Urine Occult Blood Urine Nitrate Urine Bilirubin Urine Urobilinogen Ur Leukocyte Esterase Urine RBC Urine WBC Urine WBC Clumps Hyaline Casts Urine Mucus Micro UA Comment Ur Microscopic Review Urine Culture Comments Nasal Screen MRSA (PCR) Random Vancomycin Blood Type Antibody Screen MTS Gel Crossmatch 08/19/18 08/19/18 08/19/18 04:03 04:05 05:30 WBC RBC Hgb Hct MCV MCH MCHC RDW Plt Count MPV Prelim Diff (Auto) Neut % (Auto) Lymph % (Auto) Lares % (Auto) Eos % (Auto) Baso % (Auto) Neut # (Auto) Lymph # (Auto) Lares # (Auto) Eos # (Auto) Baso # (Auto) WBC Differential Seg Neuts % (Manual) Band Neuts % (Manual) Lymphocytes % (Manual) Monocytes % (Manual) Eosinophils % (Manual) Basophils % (Manual) Metamyelocytes % (Man) Myelocytes % (Man) Abs Neuts (Manual) Nucleated RBCs/100 WBC Differential Comment Toxic Granulation Toxic Vacuolation Dohle Bodies Platelet Estimate Platelet Morphology Target Cells Acanthocytes (Spur) Keratocytes PT INR APTT Puncture Site Patient Temperature O2 Saturation ABG pH ABG pCO2 ABG pO2 ABG HCO3 ABG O2 Content ABG Base Excess ABG Methemoglobin Hemoglobin Carboxyhemoglobin O2 Delivery Device Liter Flow Critical Value Sodium 139 Potassium 4.8 Chloride 110 H Carbon Dioxide 21.5 Anion Gap 8 BUN 27 H Creatinine 0.82 Estimated GFR Greater than 89 POC Glucose Random Glucose 87 Lactic Acid Calcium 7.9 L Prot Corrected Calcium Phosphorus 1.9 L Magnesium 2.2 D Total Bilirubin 0.3 AST 36 ALT 28 Alkaline Phosphatase 89 Total Creatine Kinase Troponin I B-Natriuretic Peptide 223 H Total Protein 6.3 L Albumin 1.8 L D TSH Urine Color Urine Clarity Urine pH Ur Specific [place] Urine Protein Urine Glucose (UA) Urine Ketones Urine Occult Blood Urine Nitrate Urine Bilirubin Urine Urobilinogen Ur Leukocyte Esterase Urine RBC Urine WBC Urine WBC Clumps Hyaline Casts Urine Mucus Micro UA Comment Ur Microscopic Review Urine Culture Comments Nasal Screen MRSA (PCR) Random Vancomycin 4.8 Blood Type O Positive Antibody Screen Negative MTS Gel Crossmatch See Detail 08/19/18 08/19/18 08/19/18 07:08 07:55 12:15 WBC RBC Hgb Hct MCV MCH MCHC RDW Plt Count MPV Prelim Diff (Auto) Neut % (Auto) Lymph % (Auto) Lares % (Auto) Eos % (Auto) Baso % (Auto) Neut # (Auto) Lymph # (Auto) Lares # (Auto) Eos # (Auto) Baso # (Auto) WBC Differential Seg Neuts % (Manual) Band Neuts % (Manual) Lymphocytes % (Manual) Monocytes % (Manual) Eosinophils % (Manual) Basophils % (Manual) Metamyelocytes % (Man) Myelocytes % (Man) Abs Neuts (Manual) Nucleated RBCs/100 WBC Differential Comment Toxic Granulation Toxic Vacuolation Dohle Bodies Platelet Estimate Platelet Morphology Target Cells Acanthocytes (Spur) Keratocytes PT INR APTT Puncture Site Patient Temperature O2 Saturation ABG pH ABG pCO2 ABG pO2 ABG HCO3 ABG O2 Content ABG Base Excess ABG Methemoglobin Hemoglobin Carboxyhemoglobin O2 Delivery Device Liter Flow Critical Value Sodium Potassium Chloride Carbon Dioxide Anion Gap BUN Creatinine Estimated GFR POC Glucose 85 92 118 H Random Glucose Lactic Acid Calcium Prot Corrected Calcium Phosphorus Magnesium Total Bilirubin AST ALT Alkaline Phosphatase Total Creatine Kinase Troponin I B-Natriuretic Peptide Total Protein Albumin TSH Urine Color Urine Clarity Urine pH Ur Specific [place] Urine Protein Urine Glucose (UA) Urine Ketones Urine Occult Blood Urine Nitrate Urine Bilirubin Urine Urobilinogen Ur Leukocyte Esterase Urine RBC Urine WBC Urine WBC Clumps Hyaline Casts Urine Mucus Micro UA Comment Ur Microscopic Review Urine Culture Comments Nasal Screen MRSA (PCR) Random Vancomycin Blood Type Antibody Screen MTS Gel Crossmatch Result Diagrams: 08/19/18 04:03 08/19/18 04:05 Microbiology: Microbiology 08/18/18 03:50 Aerobic Blood Culture - Preliminary Blood - Peripheral No growth in 1 day Anaerobic Blood Culture - Preliminary No growth in 1 day 08/18/18 03:55 Aerobic Blood Culture - Preliminary Blood - Peripheral No growth in 1 day Anaerobic Blood Culture - Preliminary No growth in 1 day 08/18/18 01:05 Urine Culture - Final Catheterized Urine 50-100,000 cfu/mL mixed gram positive carlos a (probable contaminants) Imaging: Head CT 08/18/18 00:56 CONCLUSION: 1. No acute intracranial abnormality. 2. 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 . Chest X-Ray 08/19/18 09:34 CONCLUSION: 1. Worsening moderate right-sided pleural effusion and associated airspace consolidation. 2. Persistent mild left lung base airspace consolidation, presumably atelectasis. Assessment and Plan - Disease Oriented Problem List (1) Aspiration pneumonia (2) History of lacunar cerebrovascular accident (CVA) (3) HTN (hypertension) (4) Diabetes (5) Sepsis (6) Urinary tract infection - Symptom Scale (1) Weakness 0-10 Scale: Unable to quantify (2) Encephalopathy 0-10 Scale: Unable to quantify Pertinent Non-Medical Issues: Psychosocial: Single. No children. Has 2 brothers and 1 sister. Supported by his mother and aunt also. Spiritual: Orthodoxy marty, chipper operator visits requested. The last conversation his mother had with him, he was requesting that she bring him a Bible. Legal: Patient is not capacitated to make his own healthcare decisions, uncertain if he will regain capacity. Single. No children. According to [place] statutes, healthcare proxy decision making falls to his mother. Ethical issues impacting care: No known concerns at this time. Important Contacts: * Gilmer Patricia, mother: [phone] * Meri Ricardo, aunt: [phone] Prognosis: Mr. gomez is an unfortunate 62-year-old male with prior stroke, admitted with possible aspiration pneumonia, UTI, sepsis. While it appears he may survive this hospitalization he remains high risk for repeat infections, complications and further decline. May be hospice appropriate if goals are comfort oriented in the future. Code Status: Full Code Plan: * Patient is not capacitated to make his own healthcare decisions, uncertain if he will regain capacity. Single. No children. According to [place] statutes, healthcare proxy decision making falls to his mother, Gilmer Gomez. * FULL CODE - She does not remember signing the [place] DNR in the past. * GOALS:Spoke with mother/ HCP, Gilmer Gomez to provide medical update. She desires continued aggressive care including FULL CODE. She welcomes continued conversations regarding goals of care should his condition/ prognosis change. * SYMPTOMS: Encephalopathy: Secondary to prior stroke, likely related to infection, hospitalization. Continue to monitor. Mother also reports that patient often does not speak unless he wants to. Weakness: Secondary to previous stroke residual left hemiplegia. Dyspnea: On high flow oxygen. * Palliative care will continue to follow throughout hospital course to assist with symptom management and further clarification of medical treatment goals. Attestation Attestation: To help prompt me to consider important information that might be impacting today's encounter and assessment, information from prior notes written by myself or my colleagues may have been "brought forward" into today's note. My signature on this note, however, is an attestation that I personally performed the exam, history, and/or decision-making noted today, and, unless otherwise indicated, the interactions with patient, family, and staff as well as the review of records all occurred today. I also attest that the listed assessment and stated plan reflect my best clinical judgment today based on the combination of historical information, prior notes, and today's exam/ interactions. When time spent is documented, it refers only to time spent today by the signer, or if indicated, combined time spent today by collaborating physician/nurse practitioner.
[2018-08-20] MEDS: Heparin - SQ 10,000 UNITS/ML Vial SQ SCH ×4 (01:09→21:44)
[2018-08-20] MEDS: Vancomycin Inj 1,000 MG in Sodium Chlor 0.9% Inj 250 ML IV.SIG SCH ×2 (01:14→13:54)
[2018-08-20] MEDS: Piperacil/Tazo 3.375 GM Premix 50 ML IV.SIG SCH ×4 (03:57→21:42)
[2018-08-20] MEDS: Azithromycin Inj 500 MG in Sodium Chlor 0.9% Inj 250 ML IV.SIG SCH (03:57)
[2018-08-20] MEDS: Chlorhexidine Gluconate 2% 1 Pack (2 Cloths) TOPICAL SCH (03:58)
[2018-08-20] MEDS: Dextrose 10% in Water Inj 1,000 ML IV.CONT SCH (05:01)
[2018-08-20 05:14] LABS: Baso % (Auto) 0.2 % (0.0-2.0); Eos # (Auto) 0.4 th/mm3 (0.0-0.4); Eos % (Auto) 1.7 % (0.0-4.0); Hematocrit 31.9 % (39.0-51.0); Hemoglobin 10.7 gm/dL (13.0-17.0); Lymph # (Auto) 0.9 th/mm3 (1.0-4.8); Mean Corpuscular HGB Conc 33.4 % (32.0-36.0); Mean Corpuscular Hemoglobin 28.3 pg (27.0-34.0); Mean Corpuscular Volume 84.7 fL (80.0-100.0); Mean Platelet Volume 8.8 fL (7.0-11.0); Mono # (Auto) 1.2 th/mm3 (0.0-0.9); Mono % (Auto) 5.5 % (0.0-8.0); Neut # (Auto) 19.4 th/mm3 (1.8-7.7); Neut % (Auto) 88.6 % (16.0-70.0); Platelet Count 350 th/mm3 (150-450); Red Blood Count 3.77 mil/mm3 (4.50-5.90); Red Cell Distribution Width 16.5 % (11.6-17.2); White Blood Count 21.9 th/mm3 (4.0-11.0)
[2018-08-20 05:40] LABS: Anion Gap 11 meq/L (5-15); Blood Urea Nitrogen 16 mg/dL (7-18); Calcium 8.4 mg/dL (8.5-10.1); Chloride 103 meq/L (98-107); Glomerular Filtration Rate Greater Than 89 mL/min (>89); Glucose,Random 165 mg/dL (74-106); Potassium 3.8 meq/L (3.5-5.1); Sodium 141 meq/L (136-145)
--- NOTE | 2018-08-20 08:04 | P.PNCC ---
Subjective Subjective Remarks/Hospital Course: 62[facility]year-old [facility] evaluation of altered mental status. As per the staff patient was altered mental status for past 8 hours and his symptoms progressively worsen. So the called 911. Patient was initially a DNR however his mother in the emergency department at the bedside requested a full code. He has a history of previous stroke and left-sided hemiplegia. 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 As per EMS his GCS was 4 when they arrived and after this started fluid he improved to 10. His blood pressure initially was 80 systolic and prior to getting inside the ER it was 100 systolic. Patient obviously was unable to give any history. Blood sugar was 220. Chest x-ray shows new infiltrate in the right lower lobe suggesting aspiration pneumonia. 08/18 1400 hrs: Lactic acid remains elevated at 2.7 but trending down. Creatinine has declined. Urine output improved. Repeat chest x-ray obtained because of worsening hypoxia. Blossoming of right middle and lower lobe pneumonia is apparent. He may well require intubation later today. Ongoing resuscitative efforts to treat his severe sepsis. 08/19: Urine output excellent and renal function continues to improve. Oxygen saturation acceptable but still requiring high flow nasal cannula. We will start using his PEG tube again. Chest x-ray today confirms right middle and lower lobe pneumonia. Cardiac silhouette is quite large and pulmonary vasculature is prominent. He still requires 37 L/min high flow oxygen to maintain sats greater than 90%. 08/20: Low-grade fever persists renal function has improved. Desaturation occurs quickly when oxygen reduced. His hypoxemia is way out of proportion to the appearance of the chest x-ray. Objective Vital Signs / I&O: Vital Signs 08/19/18 08:00 08/19/18 09:39 08/19/18 09:55 Temperature 99.7 F H 99.7 F H 99.7 F H Pulse Rate 96 H 96 H 94 H Respiratory Rate 17 22 20 Blood Pressure 137/71 147/72 H 155/73 H Pulse Oximetry 94 L 92 L 92 L 08/19/18 12:00 08/19/18 13:00 08/19/18 13:30 Temperature 99.8 F H Pulse Rate 98 H 96 H 96 H Respiratory Rate 23 28 H 27 H Blood Pressure 168/76 H 154/76 H 150/70 H Pulse Oximetry 91 L 97 96 08/19/18 14:00 08/19/18 14:30 08/19/18 15:00 Temperature Pulse Rate 92 H 97 H 96 H Respiratory Rate 23 26 H 25 H Blood Pressure 151/73 H 160/73 H 143/69 H Pulse Oximetry 95 97 08/19/18 15:30 08/19/18 16:00 08/19/18 16:15 Temperature 99.8 F H Pulse Rate 91 H 100 H 90 Respiratory Rate 19 17 24 Blood Pressure 146/69 H 177/81 H Pulse Oximetry 97 98 95 08/19/18 16:30 08/19/18 17:00 08/19/18 17:30 Temperature Pulse Rate 87 89 89 Respiratory Rate 18 21 32 H Blood Pressure 131/70 147/70 H 155/71 H Pulse Oximetry 93 L 94 L 95 08/19/18 18:00 08/19/18 18:30 08/19/18 19:00 Temperature Pulse Rate 93 H 94 H 93 H Respiratory Rate 22 27 H 22 Blood Pressure 155/70 H 151/72 H 154/71 H Pulse Oximetry 95 95 92 L 08/19/18 19:30 08/19/18 20:00 08/19/18 20:10 Temperature 99.1 F Pulse Rate 90 90 90 Respiratory Rate 19 19 16 Blood Pressure 159/74 H 165/76 H Pulse Oximetry 95 95 96 08/19/18 20:30 08/19/18 21:00 08/19/18 21:30 Temperature Pulse Rate 93 H 94 H 94 H Respiratory Rate 26 H 21 16 Blood Pressure 159/74 H 169/81 H 166/79 H Pulse Oximetry 94 L 94 L 91 L 08/19/18 22:00 08/19/18 22:30 08/19/18 23:00 Temperature Pulse Rate 96 H 92 H 90 Respiratory Rate 21 17 18 Blood Pressure 165/76 H 170/80 H 143/67 H Pulse Oximetry 90 L 97 96 08/19/18 23:30 08/20/18 00:00 08/20/18 00:30 Temperature Pulse Rate 89 90 93 H Respiratory Rate 19 22 18 Blood Pressure 149/75 H 172/80 H 161/71 H Pulse Oximetry 95 89 L 96 08/20/18 01:00 08/20/18 03:25 08/20/18 04:00 Temperature 98.7 F Pulse Rate 99 H 92 H 83 Respiratory Rate 18 16 19 Blood Pressure 169/79 H 153/73 H Pulse Oximetry 90 L 98 08/20/18 07:58 08/20/18 07:59 Temperature Pulse Rate 82 Respiratory Rate 18 Blood Pressure Pulse Oximetry 97 Intake & Output 08/19/18 08/20/18 08/20/18 18:59 06:59 18:59 Intake Total 1400 / 1400 1600 / 1600 Output Total 1525 / 1525 750 / 750 Balance -125 / -125 850 / 850 Weight 52 kg Intake: IV 1000 / 1000 1600 / 1600 D10W Inj 1,000 ML @ 20 mls/hr 1000 / 1000 IV.CONT .Q24H JADA Rx#:[id number] NS Inj 1,000 ML @ 125 mls/hr IV 400 / 400 .CONT .Q8H JADA Rx#:[id number] Azithromycin Inj 500 MG In NS 250 / 250 250 / 250 Inj 250 ML @ 250 mls/hr IV.SIG Q24H JADA Rx#:[id number] Zosyn 3.375 GM Premix 50 ML @ 100 / 100 100 / 100 100 mls/hr IV.SIG Q6H JADA Rx#: [id number] Vancomycin Inj 1,000 MG In NS 250 / 250 250 / 250 Inj 250 ML @ 250 mls/hr IV.SIG Q12H JADA Rx#:[id number] Intake (Blood Product) Amt 400 / 400 Rbc As-3 Leukoreduced Unit 400 / 400 [id number] Rbc As-3 Leukoreduced Unit 0 / 0 [id number] Output: Urine Amount (Catheter) 1500 / 1500 750 / 750 Condom 1500 / 1500 750 / 750 Gastric Drainage 25 / 25 Left Upper Quadrant Gastrostomy 25 / 25 Tube (PEG) Other: Date of Last Bowel Movement 08/19/18 08/19/18 # Incontinent Bowel Movements 1 # Emeses 1 Result Diagrams: 08/20/18 03:51 08/20/18 03:51 Objective Remarks: - Constitutional chronically ill appearing, minimally responsive - Routine HEENT Exam Head: Present: normocephalic Eye: Present: PERRL, normal accommodation - Routine Neck Exam Present: supple, full ROM. Airway widely patent absent: JVD, carotid bruit - Routine Respiratory Exam Present: rhonchi, crackles. Respiratory effort is labored, oxygen saturation 97 % on high flow nasal cannula - Routine Cardiovascular Exam Present: RRR, S1, S2, no JVD - Routine Abdominal Exam Present: soft, normoactive bowel sounds. No guarding absent: tenderness - Routine Extremities Exam No deformity, warm, well-perfused. Absent: cyanosis, clubbing, edema - Routine Skin Exam Absent: intact, cyanosis, erythema - Routine Neurological Exam Present: altered mental status, uses right arm with purpose. Encephalopathy persists. Left-sided hemiplegia Assessment and Plan - Problem List (1) Aspiration pneumonia Code(s): J69.0 - Pneumonitis due to inhalation of food and vomit Status: Acute (2) Acute hypoxemic respiratory failure Code(s): J96.01 - Acute respiratory failure with hypoxia Status: Acute (3) Metabolic encephalopathy Code(s): G93.41 - Metabolic encephalopathy Status: Acute (4) LUCITA (acute kidney injury) Code(s): N17.9 - Acute kidney failure, unspecified Status: Acute (5) Protein-calorie malnutrition, moderate Code(s): E44.0 - Moderate protein-calorie malnutrition Status: Acute - Assessment and Plan Plan: Sepsis -Continue aggressive IV fluid hydration -Broad-spectrum antibiotic -Blood cultures -CXR new infiltrate -Likely pneumonia/aspiration -Serial lactic acid determination -Cultures negative to date. Pneumonia -Vancomycin and Zosyn Zithromax -DuoNeb's as needed -We will obtain CAT scan to better visualize the lung parenchyma. Lactic acidosis -Due to above -Monitor trend -IV fluid hydration Hyperlipemia -Atorvastatin History of CVA -Aspirin -Atorvastatin -Cyclobenzaprine Anemia -Ferrous Sulfate -Monitor H&H -Transfuse as needed to keep hemoglobin above 7 -Transfuse 2 units packed red blood cells for hemoglobin 6 Diabetes mellitus -Insulin Detemir -Insulin sliding scale DVT GI prophylaxis -Teds SCDs -Subcu heparin -Lansoprazole Overall impression: This gentleman presented in severe sepsis with major organ system dysfunction. He remains critically ill and his respiratory status initially deteriorated following hydration. He now demonstrates acceptable peripheral perfusion and resolution of renal dysfunction. He may well yet require intubation and mechanical ventilation because of his markedly impaired gas exchange. Critical care time 40 minutes aside from procedures.
[2018-08-20] MEDS: Insulin NovoLOG Aspart Correctional Sugar Inj SQ SCH ×3 (08:38→18:45)
[2018-08-20] MEDS: Aspirin 325 MG Tablet G-TUBE SCH (09:24)
[2018-08-20] MEDS: Ferrrous Sulfate 300 MG/5 ML UDC G-TUBE SCH (09:24)
[2018-08-20] MEDS: Senna/Docusate Sodium 8.6/50 MG Tablet PO SCH ×2 (09:25→21:43)
--- NOTE | 2018-08-20 13:02 | CT ---
EXAM DATE: 08/20/2018 12:52 PM EDT AGE/SEX: 62 years / Male INDICATIONS: Severe hypoxemia CLINICAL DATA: This is the patient's initial encounter. Patient reports that signs and symptoms have been present for 3 days and indicates a pain score of 5/10. MEDICAL/SURGICAL HISTORY: Diabetes mellitus type II. Stroke. . Peg tube RADIATION DOSE: 7.02 CTDI (mGy) COMPARISON: No prior exams available for comparison. TECHNIQUE: Multiple contiguous axial images were obtained through the chest without contrast. Image s were obtained in suspended respiration using multiple row detector helical technique. Using automa shiar exposure control and adjustment of the mA and/or kV according to patient size, radiation dose was kept as low as reasonably achievable to obtain optimal diagnostic quality images. DICOM format imag e data is available electronically for review and comparison. FINDINGS: Lungs: Probable atelectatic changes in the dependent portion of the left hemithorax but there is nicole e patchy left perihilar airspace disease. On the right, dense consolidation in the right lower lobe w ith scattered patchy airspace disease throughout the right hemithorax concerning for pneumonic infilt rate. Mediastinum: There is good visualization of the great vessels of the middle mediastinum. No evidenc e of mediastinal or hilar adenopathy/mass. Minimal atherosclerotic calcification of the coronary tessa huma. Pleurae: No evidence of focal thickening or pleural effusion. Axillae: Unremarkable. Bony Structures: Unremarkable. Miscellaneous: The examination was extended to include the upper abdomen, and both adrenal glands ar e normal in size and configuration. CONCLUSION: 1. Bilateral airspace disease, right much worse than left. I believe the left basilar consolidation is probably atelectatic with may be a mild left perihilar infiltrate. 2. On the right, dense consolidation in the right base with patchy airspace disease in the right per ihilar and upper lobe distribution concerning for a pneumonic process. Electronically signed by: Zhou Levin MD 08/20/2018 1:00 PM EDT
[2018-08-20] MEDS ORDERED: Pharmacy Ordered Lab Info OTHER ONE (23:45)
[2018-08-21] MEDS: Vancomycin Inj 1,000 MG in Sodium Chlor 0.9% Inj 250 ML IV.SIG SCH ×2 (00:54→11:32)
[2018-08-21] MEDS: Insulin NovoLOG Aspart Correctional Sugar Inj SQ SCH ×4 (01:23→17:57)
[2018-08-21] MEDS: Piperacil/Tazo 3.375 GM Premix 50 ML IV.SIG SCH ×3 (01:24→14:25)
[2018-08-21] MEDS: Dextrose 10% in Water Inj 1,000 ML IV.CONT SCH (04:07)
[2018-08-21] MEDS: Azithromycin Inj 500 MG in Sodium Chlor 0.9% Inj 250 ML IV.SIG SCH (04:09)
[2018-08-21] MEDS: Chlorhexidine Gluconate 2% 1 Pack (2 Cloths) TOPICAL SCH (04:11)
[2018-08-21 06:25] LABS: Baso # (Auto) 0.1 th/mm3 (0.0-0.2); Baso % (Auto) 0.7 % (0.0-2.0); Eos # (Auto) 0.3 th/mm3 (0.0-0.4); Eos % (Auto) 1.4 % (0.0-4.0); Hematocrit 31.9 % (39.0-51.0); Hemoglobin 10.8 gm/dL (13.0-17.0); Mean Corpuscular HGB Conc 33.8 % (32.0-36.0); Mean Corpuscular Hemoglobin 28.7 pg (27.0-34.0); Mean Corpuscular Volume 84.9 fL (80.0-100.0); Mean Platelet Volume 8.6 fL (7.0-11.0); Mono # (Auto) 1.7 th/mm3 (0.0-0.9); Mono % (Auto) 8.7 % (0.0-8.0); Neut # (Auto) 16.4 th/mm3 (1.8-7.7); Neut % (Auto) 84.2 % (16.0-70.0); Platelet Count 366 th/mm3 (150-450); Red Blood Count 3.76 mil/mm3 (4.50-5.90); Red Cell Distribution Width 16.4 % (11.6-17.2); White Blood Count 19.5 th/mm3 (4.0-11.0)
[2018-08-21 06:48] LABS: Anion Gap 12 meq/L (5-15); Blood Urea Nitrogen 10 mg/dL (7-18); Calcium 8.1 mg/dL (8.5-10.1); Carbon Dioxide 25.1 meq/L (21.0-32.0); Chloride 104 meq/L (98-107); Glomerular Filtration Rate Greater Than 89 mL/min (>89); Glucose,Random 178 mg/dL (74-106); Potassium 3.1 meq/L (3.5-5.1); Sodium 141 meq/L (136-145)
[2018-08-21] MEDS: Heparin - SQ 10,000 UNITS/ML Vial SQ SCH ×3 (07:26→21:12)
--- NOTE | 2018-08-21 07:54 | P.PNCC ---
Subjective Subjective Remarks/Hospital Course: 62-year-old male presents from [facility] for an evaluation of altered mental status. As per the staff patient was altered mental status for past 8 hours and his symptoms progressively worsen. So the called 911. Patient was initially a DNR however his mother in the emergency department at the bedside requested a full code. He has a history of previous stroke and left-sided hemiplegia. 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 As per EMS his GCS was 4 when they arrived and after this started fluid he improved to 10. His blood pressure initially was 80 systolic and prior to getting inside the ER it was 100 systolic. Patient obviously was unable to give any history. Blood sugar was 220. Chest x-ray shows new infiltrate in the right lower lobe suggesting aspiration pneumonia. 08/18 1400 hrs: Lactic acid remains elevated at 2.7 but trending down. Creatinine has declined. Urine output improved. Repeat chest x-ray obtained because of worsening hypoxia. Blossoming of right middle and lower lobe pneumonia is apparent. He may well require intubation later today. Ongoing resuscitative efforts to treat his severe sepsis. 08/19: Urine output excellent and renal function continues to improve. Oxygen saturation acceptable but still requiring high flow nasal cannula. We will start using his PEG tube again. Chest x-ray today confirms right middle and lower lobe pneumonia. Cardiac silhouette is quite large and pulmonary vasculature is prominent. He still requires 37 L/min high flow oxygen to maintain sats greater than 90%. 08/20: Low-grade fever persists renal function has improved. Desaturation occurs quickly when oxygen reduced. His hypoxemia is way out of proportion to the appearance of the chest x-ray. 08/21: As expected, persistent hypoxemia is due to a densely consolidated lobar pneumonia involving the right lower lobe. This is a typical aspiration sequelae and will not clear spontaneously and this uncooperative patient. We will need to intubate him and perform bronchoscopy on this right lower lobe, obtaining sputum samples at the same time. Objective Vital Signs / I&O: Vital Signs 08/20/18 07:58 08/20/18 07:59 08/20/18 08:00 Temperature 98.8 F Pulse Rate 82 82 Respiratory Rate 18 14 Blood Pressure 144/69 H Pulse Oximetry 97 97 08/20/18 12:00 08/20/18 16:00 08/20/18 16:31 Temperature 98.8 F 98.5 F Pulse Rate 76 88 67 Respiratory Rate 16 17 20 Blood Pressure 130/63 165/79 H Pulse Oximetry 95 96 08/20/18 20:00 08/20/18 20:12 08/21/18 00:00 Temperature 98.7 F 98.6 F Pulse Rate 84 82 82 Respiratory Rate 20 21 23 Blood Pressure 158/75 H 164/77 H Pulse Oximetry 96 100 08/21/18 03:44 08/21/18 04:00 Temperature 98.7 F Pulse Rate 79 92 H Respiratory Rate 23 20 Blood Pressure 167/78 H Pulse Oximetry 95 Intake & Output 08/20/18 08/21/18 08/21/18 18:59 06:59 18:59 Intake Total 410 / 410 1350 / 1350 Output Total 1700 / 1700 350 / 350 Balance -1290 / -1290 1000 / 1000 Weight 53.2 kg Intake: IV 350 / 350 1350 / 1350 D10W Inj 1,000 ML @ 20 mls/hr 1000 / 1000 IV.CONT .Q24H JADA Rx#:[id number] Zosyn 3.375 GM Premix 50 ML @ 100 / 100 100 / 100 100 mls/hr IV.SIG Q6H JADA Rx#: [id number] Vancomycin Inj 1,000 MG In NS 250 / 250 250 / 250 Inj 250 ML @ 250 mls/hr IV.SIG Q12H JADA Rx#:[id number] Tube Irrigant 60 / 60 Output: Urine Amount (Catheter) 1700 / 1700 350 / 350 Condom 1700 / 1700 350 / 350 Other: Date of Last Bowel Movement 08/20/18 08/19/18 # Incontinent Bowel Movements 1 Result Diagrams: 08/21/18 05:50 08/21/18 05:50 Objective Remarks: - Constitutional chronically ill appearing, more responsive responsive - Routine HEENT Exam Head: Present: normocephalic Eye: Present: PERRL, normal accommodation - Routine Neck Exam Present: supple, full ROM. Airway widely patent absent: JVD, carotid bruit - Routine Respiratory Exam Present: rhonchi, crackles. Absent breath sounds right base, respiratory effort is labored, oxygen saturation 97% on high flow nasal cannula - Routine Cardiovascular Exam Present: RRR, S1, S2, no JVD - Routine Abdominal Exam Present: soft, normoactive bowel sounds. No guarding. absent: tenderness, distention - Routine Extremities Exam No deformity, warm, well-perfused. Absent: cyanosis, clubbing, edema - Routine Skin Exam Absent: intact, cyanosis, erythema - Routine Neurological Exam Present: altered mental status, uses right arm with purpose. Encephalopathy persists. Talkative today again. Left-sided hemiplegia permanent Assessment and Plan - Problem List (1) Aspiration pneumonia Code(s): J69.0 - Pneumonitis due to inhalation of food and vomit Status: Acute (2) Acute hypoxemic respiratory failure Code(s): J96.01 - Acute respiratory failure with hypoxia Status: Acute (3) Metabolic encephalopathy Code(s): G93.41 - Metabolic encephalopathy Status: Acute (4) LUCITA (acute kidney injury) Code(s): N17.9 - Acute kidney failure, unspecified Status: Acute (5) Protein-calorie malnutrition, moderate Code(s): E44.0 - Moderate protein-calorie malnutrition Status: Acute - Assessment and Plan Plan: Sepsis -Continue aggressive IV fluid hydration -Broad-spectrum antibiotic -Blood cultures -CXR new infiltrate -Likely pneumonia/aspiration -Serial lactic acid determination -Cultures negative to date. Pneumonia -Vancomycin and Zosyn Zithromax -DuoNeb's as needed -We will obtain CAT scan to better visualize the lung parenchyma. -CAT scan demonstrates lobar pneumonia right lower lobe, will require bronchoscopy Lactic acidosis -Due to above -Monitor trend -IV fluid hydration -Resolved Hyperlipemia -Atorvastatin History of CVA -Aspirin -Atorvastatin -Cyclobenzaprine Anemia -Ferrous Sulfate -Monitor H&H -Transfuse as needed to keep hemoglobin above 7 -Transfuse 2 units packed red blood cells for hemoglobin 6 Diabetes mellitus -Insulin Detemir -Insulin sliding scale DVT GI prophylaxis -Teds SCDs -Subcu heparin -Lansoprazole Overall impression: This gentleman presented in severe sepsis with major organ system dysfunction. He remains critically ill and his respiratory status initially deteriorated further following hydration. He now demonstrates acceptable peripheral perfusion and resolution of renal dysfunction. He will require intubation and mechanical ventilation because of his markedly impaired gas exchange and intractable lobar pneumonia. Critical care time 38 minutes aside from procedures.
[2018-08-21 08:50] LABS: Eosinophils 1 % (0-4); Lymphocytes 2 % (9-44); Monocytes 5 % (0-8); Promyelocyte 1 % (0-0)
[2018-08-21 08:51] LABS: Platelet Estimate Normal (Normal); Platelet Morphology Normal (Normal); Toxic Vacuolation Present
[2018-08-21] MEDS: Ferrrous Sulfate 300 MG/5 ML UDC G-TUBE SCH (10:09)
[2018-08-21] MEDS: Aspirin 325 MG Tablet G-TUBE SCH (10:09)
[2018-08-21] MEDS: Senna/Docusate Sodium 8.6/50 MG Tablet PO SCH ×2 (10:10→21:11)
[2018-08-21] MEDS ORDERED: Pharmacy Ordered Lab Info OTHER ONE (11:45)
[2018-08-21] MEDS ORDERED: Etomidate Inj 20 MG/10 ML Ampul IV.PUSH ONE (12:00)
[2018-08-21] MEDS ORDERED: fentaNYL Citrate Inj 100 MCG/2 ML Ampul IV.PUSH ONE (12:00)
[2018-08-21] MEDS: Propofol 1000 mg/100 ml Inj 1,000 MG/100 ML BOTTLE IV.CONT PRN (12:30)
--- NOTE | 2018-08-21 12:32 | P.PCN ---
Date of procedure: 08/21/18 Pre-op diagnosis: aspiration pneumonia, hypoxia Post-op diagnosis: same Procedure: Endotracheal intubation The patient was identified by armband and a time out was called prior to procedure. The patient was placed in appropriate supine position and pre- oxygenated with face mask O2 and sats were 100% prior to procedure start. A rapid sequence intubation was performed using etomidate, rocuronium, and fentanyl. The patient was successfully intubated with an 8-0 ETT on 1 attempt, no difficulties during the procedure, tolerated well with no immediate complications. The ETT was secured at 24 cm at the lip. Surgeon: Aminah Griffiths Condition: stable Disposition: ICU
--- NOTE | 2018-08-21 12:39 | P.PCN ---
Date of procedure: 08/21/18 Pre-op diagnosis: aspiration pneumonia, hypoxia Post-op diagnosis: same Procedure: Bronchoscopy The patient was identified by arm band and a time-out was called prior to procedure start. The patient was placed on 100% FiO2 on ventilator. A bronchoscope was placed via ETT, the pam was visualized and a moderate amount of thick yellow/ white sputum was suctioned. The right bronchus was identified via landmarks and there was a moderate amount of sputum noted past the 2nd and 3rd bifurcations. 2 mL of Mucomyst was instilled in the distal bronchi x 2 (4 mL total) and secretions were suctioned. The left bronchus and bifurcations were visualized with no sputum encountered. The airway appeared minimally friable. The patient tolerated the procedure well with no oxygen desaturations. Continue current vent settings and aggressive pulmonary toilet, wean FiO2 as tolerated for O2 sats >95%. CXR to be obtained stat. Surgeon: Aminah Griffiths Condition: stable Disposition: ICU
--- NOTE | 2018-08-21 12:43 | P.PNCC ---
Critical Care Event Note Code activated: No Narrative: The patient was noted to have brisk oxygen desaturations unless he was on 15L face mask or high-flow O2. He was fairly sleepy and unable to answer questions this morning. I spoke with the patient's mother twice this morning and discussed the patient's code status and goals of care. I informed her that I am concerned that the patient's somnolence is due to hypercarbia and that he is unable to forcefully cough or take deep breaths frequently. I recommended that we proceed with intubation and bronchoscopy for pulmonary toilet, and informed her that the patient may require tracheostomy in the future given the extent of his aspiration. She understands and agrees to proceed with both procedures. Telephone consent was obtained and witnessed by RN. Critical care time: less than 30 mins (No critical care time involved)
--- NOTE | 2018-08-21 13:17 | XR ---
EXAM DATE: 08/21/2018 1:08 PM EDT AGE/SEX: 62 years / Male INDICATIONS: Respiratory Failure. Status post Intubation and Bronch. CLINICAL DATA: This is the patient's subsequent encounter. Patient reports that signs and symptoms h ave been present for 4 - 6 days and indicates a pain score of Nonresponsive. MEDICAL/SURGICAL HISTORY: . Diabetes mellitus type II. Stroke. . Peg tube COMPARISON: [facility] [place], [place] CHEST W/O CONTRAST, 08/20/2018. . FINDINGS: Cardiac megaly. Atelectasis at the left lung base. There is patchy airspace disease in the left lower lobe and right upper, mid and lower lobes. Endotracheal tube tip terminates 2.1 cm above the pam. No obvious effusion. CONCLUSION: Bilateral airspace disease as described above, right greater than left. This corresponds to the findi ngs on recent CT chest. Electronically signed by: Luis Miguel Olvera MD 08/21/2018 1:16 PM EDT
[2018-08-21] MEDS ORDERED: Midazolam 50 MG/50 ML Inj 50 MG/50 ML BAG IV.CONT PRN (14:19)
[2018-08-21] MEDS: fentaNYL 10 mcg/mL Premix Drip 2,500 MCG/250 ML BAG IV.SIG PRN (14:21)
[2018-08-21 14:24] LABS: ABG Base Excess 3.1 mmol/L (-2-2); ABG PCO2 42 mmHg (38-42); ABG PO2 236 mmHg (61-120)
--- NOTE | 2018-08-21 18:29 | P.PNPAL ---
Called to speak with Gilmer Goemz,mother/HCP to check on her, to see if she has any questions or concerns. She asks "DO you think he will be okay?" I advised that Dr. Griffiths and I spoke this morning and felt it was worth giving him a chance on vent and to have bronchoscopy. She asks me if "will let her know if I think he is not going to get better." I promised her we would let her know if his condition changes such that we think he will not survive. We agreed to take it one day at a time for now and agreed to speak again Friday. Goals remain aggressive including FULL CODE for now. Again she wants to be notified if his prognosis changes significantly as she would liek to reevaluate goals if he isn't going to get better.
[2018-08-21] MEDS: Oral Hygiene Kit OROPHARYNG SCH (19:29)
[2018-08-21] MEDS ORDERED: Sodium Phosphate Inj 30 MMOL in Sodium Chlor 0.9% Inj 250 ML IV.SIG PRN (19:58)
[2018-08-21] MEDS ORDERED: Magnesium Sulfate Inj 2 GM in Sodium Chlor 0.9% Inj 96 ML IV.SIG PRN (19:58)
[2018-08-21] MEDS ORDERED: Magnesium Sulfate Inj 4 GM in Sodium Chlor 0.9% Inj 92 ML IV.SIG PRN (19:58)
[2018-08-21] MEDS ORDERED: Potassium Chlor 40 mEq Premix 40 MEQ/100 ML PIGGYBACK IV.SIG PRN ×2 (19:58)
[2018-08-21] MEDS ORDERED: Potassium Phosphate 500 MG Soluble Tablet PO PRN ×2 (19:58)
[2018-08-21] MEDS ORDERED: Magnesium Oxide 400 MG Tablet PO PRN (19:58)
[2018-08-21] MEDS ORDERED: Potassium Chlor 20 mEq Premix 20 MEQ/100 ML PIGGYBACK IV.SIG PRN ×2 (19:58)
[2018-08-21] MEDS ORDERED: Potassium Phosphate Inj 30 MMOL in Sodium Chlor 0.9% Inj 250 ML IV.SIG PRN (19:58)
[2018-08-21] MEDS: Piperacil/Tazo 4.5 GM Premix 4.5 GM/100 ML BAG IV.SIG SCH (20:08)
[2018-08-21] MEDS: Potassium Chloride 25 MEQ Effervescent Tablet PO PRN (20:34)
[2018-08-21] MEDS: Chlorhexidine 0.12% Oral Kit 15 ML UDC OROPHARYNG SCH (21:10)
[2018-08-22] MEDS: Oral Hygiene Kit OROPHARYNG SCH ×5 (01:29→23:48)
[2018-08-22] MEDS: Insulin NovoLOG Aspart Correctional Sugar Inj SQ SCH ×6 (01:31→23:47)
[2018-08-22] MEDS: Vancomycin Inj 1,000 MG in Sodium Chlor 0.9% Inj 250 ML IV.SIG SCH ×2 (01:38→13:07)
[2018-08-22] MEDS: Piperacil/Tazo 4.5 GM Premix 4.5 GM/100 ML BAG IV.SIG SCH ×3 (03:00→14:21)
--- NOTE | 2018-08-22 04:42 | XR ---
EXAM DATE: 08/22/2018 4:35 AM EDT AGE/SEX: 62 years / Male INDICATIONS: Pneumonia, hypoxemia. CLINICAL DATA: This is the patient's subsequent encounter. Patient reports that signs and symptoms h ave been present for 4 - 6 days and indicates a pain score of Nonresponsive. MEDICAL/SURGICAL HISTORY: Hypertension. Diabetes mellitus type II. Anemia. Stroke. . Peg Tu be. [place] [facility] [place]. . FINDINGS: ET tube tip well above the pam. Interval development of consolidation in the left lower lung with loss of delineation of the left hemidiaphragm. Persistent acinar densities in the right mid and upper lung. The heart is normal in size. CONCLUSION: Left lower lung consolidation. Stable nonconsolidative infiltrates right upper lung. Electronically signed by: Og Ames MD 08/22/2018 4:41 AM EDT
[2018-08-22 05:18] LABS: Baso # (Auto) 0.1 th/mm3 (0.0-0.2); Baso % (Auto) 0.3 % (0.0-2.0); Eos # (Auto) 0.8 th/mm3 (0.0-0.4); Eos % (Auto) 3.2 % (0.0-4.0); Hematocrit 32.6 % (39.0-51.0); Hemoglobin 10.4 gm/dL (13.0-17.0); Lymph # (Auto) 1.7 th/mm3 (1.0-4.8); Lymph % (Auto) 6.9 % (9.0-44.0); Mean Corpuscular HGB Conc 31.8 % (32.0-36.0); Mean Platelet Volume 8.2 fL (7.0-11.0); Mono # (Auto) 3.2 th/mm3 (0.0-0.9); Mono % (Auto) 12.8 % (0.0-8.0); Neut # (Auto) 19.3 th/mm3 (1.8-7.7); Neut % (Auto) 76.8 % (16.0-70.0); Platelet Count 388 th/mm3 (150-450); Red Cell Distribution Width 17.3 % (11.6-17.2); White Blood Count 25.2 th/mm3 (4.0-11.0)
[2018-08-22 05:58] LABS: Anion Gap 9 meq/L (5-15); Blood Urea Nitrogen 17 mg/dL (7-18); Calcium 8.2 mg/dL (8.5-10.1); Carbon Dioxide 26.1 meq/L (21.0-32.0); Chloride 104 meq/L (98-107); Glomerular Filtration Rate Greater Than 89 mL/min (>89); Glucose,Random 166 mg/dL (74-106); Potassium 4.3 meq/L (3.5-5.1); Sodium 139 meq/L (136-145)
[2018-08-22] MEDS: Azithromycin Inj 500 MG in Sodium Chlor 0.9% Inj 250 ML IV.SIG SCH (05:58)
[2018-08-22] MEDS: Chlorhexidine Gluconate 2% 1 Pack (2 Cloths) TOPICAL SCH (05:58)
[2018-08-22] MEDS: Heparin - SQ 10,000 UNITS/ML Vial SQ SCH ×3 (05:59→22:14)
[2018-08-22] MEDS: Dextrose 10% in Water Inj 1,000 ML IV.CONT SCH (05:59)
[2018-08-22 06:20] LABS: Ovalocytes 1+; Platelet Estimate Normal (Normal); Platelet Morphology Normal (Normal); Tear Drop Cells 1+
[2018-08-22] MEDS: Chlorhexidine 0.12% Oral Kit 15 ML UDC OROPHARYNG SCH ×2 (08:36→20:20)
[2018-08-22] MEDS: Senna/Docusate Sodium 8.6/50 MG Tablet PO SCH ×2 (08:37→20:20)
[2018-08-22] MEDS: Ferrrous Sulfate 300 MG/5 ML UDC G-TUBE SCH (08:37)
[2018-08-22] MEDS: Aspirin 325 MG Tablet G-TUBE SCH (08:37)
--- NOTE | 2018-08-22 09:29 | P.PNCC ---
Subjective Subjective Remarks/Hospital Course: 62-year-old male [facility] for [facility] evaluation of altered mental status. As per the staff patient was altered mental status for past 8 hours and his symptoms progressively worsen. So the called 911. Patient was initially a DNR however his mother in the emergency department at the bedside requested a full code. He has a history of previous stroke and left-sided hemiplegia. 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 As per EMS his GCS was 4 when they arrived and after this started fluid he improved to 10. His blood pressure initially was 80 systolic and prior to getting inside the ER it was 100 systolic. Patient obviously was unable to give any history. Blood sugar was 220. Chest x-ray shows new infiltrate in the right lower lobe suggesting aspiration pneumonia. 08/18 1400 hrs: Lactic acid remains elevated at 2.7 but trending down. Creatinine has declined. Urine output improved. Repeat chest x-ray obtained because of worsening hypoxia. Blossoming of right middle and lower lobe pneumonia is apparent. He may well require intubation later today. Ongoing resuscitative efforts to treat his severe sepsis. 08/19: Urine output excellent and renal function continues to improve. Oxygen saturation acceptable but still requiring high flow nasal cannula. We will start using his PEG tube again. Chest x-ray today confirms right middle and lower lobe pneumonia. Cardiac silhouette is quite large and pulmonary vasculature is prominent. He still requires 37 L/min high flow oxygen to maintain sats greater than 90%. 08/20: Low-grade fever persists renal function has improved. Desaturation occurs quickly when oxygen reduced. His hypoxemia is way out of proportion to the appearance of the chest x-ray. 08/21: As expected, persistent hypoxemia is due to a densely consolidated lobar pneumonia involving the right lower lobe. This is a typical aspiration sequelae and will not clear spontaneously and this uncooperative patient. We will need to intubate him and perform bronchoscopy on this right lower lobe, obtaining sputum samples at the same time. 1027: Low-grade fever and worsening leukocytosis. Culture results pending. Some clearing on the right side but the left lower lobe demonstrates a worsening consolidated infiltrate. We will continue broad antibiotic coverage until we get an organism. We may need to repeat that BAL if the Gram stain today is not productive. Objective Vital Signs / I&O: Vital Signs 08/21/18 12:00 08/21/18 12:10 08/21/18 12:22 Temperature 99 F Pulse Rate 88 Respiratory Rate 19 14 Blood Pressure 183/81 H Pulse Oximetry 100 99 100 08/21/18 15:53 08/21/18 16:00 08/21/18 20:00 Temperature 99.4 F 99.6 F Pulse Rate 86 86 78 Respiratory Rate 14 19 15 Blood Pressure 121/74 114/68 Pulse Oximetry 99 99 99 08/21/18 20:22 08/22/18 00:00 08/22/18 00:09 Temperature 99.1 F Pulse Rate 82 88 Respiratory Rate 14 14 Blood Pressure 119/67 Pulse Oximetry 14 L 97 08/22/18 00:11 08/22/18 04:00 08/22/18 04:14 Temperature 99.2 F Pulse Rate 87 85 Respiratory Rate 15 14 15 Blood Pressure 101/62 Pulse Oximetry 96 97 08/22/18 04:15 08/22/18 07:49 08/22/18 07:50 Temperature Pulse Rate 86 97 H Respiratory Rate 14 18 22 Blood Pressure Pulse Oximetry 98 Intake & Output 08/21/18 08/22/18 08/22/18 18:59 06:59 18:59 Intake Total 660 / 660 1360 / 1360 600 / 600 Output Total 750 / 750 900 / 900 Balance -90 / -90 460 / 460 600 / 600 Weight 49.4 kg Intake: IV 600 / 600 1200 / 1200 600 / 600 D10W Inj 1,000 ML @ 20 mls/hr 1000 / 1000 IV.CONT .Q24H [facility] Rx#:[id number] Azithromycin Inj 500 MG In NS 250 / 250 250 / 250 Inj 250 ML @ 250 mls/hr IV.SIG Q24H [facility] Rx#:[id number] Zosyn 3.375 GM Premix 50 ML @ 100 / 100 100 mls/hr IV.SIG Q6H [facility] Rx#: [id number] Zosyn 4.5 GM Premix 4.5 gm In 200 / 200 100 ml @ 200 mls/hr IV.SIG Q6H [facility] Rx#:[id number] KCl 20 mEq Premix Inj 20 meq In 100 / 100 100 ml @ 50 mls/hr IV.SIG Q2H PRN Rx#:[id number] Vancomycin Inj 1,000 MG In NS 250 / 250 250 / 250 Inj 250 ML @ 250 mls/hr IV.SIG Q12H [facility] Rx#:[id number] Tube Feeding 0 / 0 Tube Irrigant 60 / 60 60 / 60 Water Bolus Amount 100 / 100 Output: Urine 900 / 900 Urine Amount (Catheter) 750 / 750 Condom 750 / 750 Other: Date of Last Bowel Movement 08/20/18 08/20/18 # Bowel Movements 1 # Incontinent Bowel Movements 0 0 Result Diagrams: 08/22/18 04:21 08/22/18 04:21 Objective Remarks: - Constitutional chronically ill appearing, intubated and mechanically ventilated - Routine HEENT Exam Head: Present: normocephalic Eye: Present: PERRL, normal accommodation - Routine Neck Exam Present: supple, full ROM. Airway widely patent absent: JVD, carotid bruit - Routine Respiratory Exam Present: rhonchi, crackles. Improved breath sounds right base. Scattered rhonchi. - Routine Cardiovascular Exam Present: RRR, S1, S2, no JVD - Routine Abdominal Exam Present: soft, normoactive bowel sounds. No guarding. absent: tenderness, distention - Routine Extremities Exam No deformity, warm, well-perfused. Absent: cyanosis, clubbing, edema - Routine Skin Exam Absent: intact, cyanosis, erythema - Routine Neurological Exam Present: When light uses right arm with purpose. Encephalopathy persists. Left -sided hemiplegia permanent Assessment and Plan - Problem List (1) Aspiration pneumonia Code(s): J69.0 - Pneumonitis due to inhalation of food and vomit Status: Acute (2) Acute hypoxemic respiratory failure Code(s): J96.01 - Acute respiratory failure with hypoxia Status: Acute (3) Metabolic encephalopathy Code(s): G93.41 - Metabolic encephalopathy Status: Acute (4) LUCITA (acute kidney injury) Code(s): N17.9 - Acute kidney failure, unspecified Status: Acute (5) Protein-calorie malnutrition, moderate Code(s): E44.0 - Moderate protein-calorie malnutrition Status: Acute - Assessment and Plan Plan: Sepsis -Continue aggressive IV fluid hydration -Broad-spectrum antibiotic -Blood cultures -CXR new infiltrate -Likely pneumonia/aspiration -Serial lactic acid determination -Cultures negative to date. -Repeat urine culture with deep suctioning Hypoxemic respiratory failure -Patient required intubation and the institution of mechanical ventilation yesterday 08/21 -Some improvement in aeration of the right lower lobe. Worsening density involving the left lower lobe -Continue mechanical ventilation PRVC mode Pneumonia -Vancomycin and Zosyn Zithromax -DuoNeb's as needed -We will obtain CAT scan to better visualize the lung parenchyma. -CAT scan demonstrates lobar pneumonia right lower lobe, improved after bronchoscopy Lactic acidosis -Due to above -Monitor trend -IV fluid hydration -Resolved Hyperlipemia -Atorvastatin History of CVA -Aspirin -Atorvastatin -Cyclobenzaprine Anemia -Ferrous Sulfate -Monitor H&H -Transfuse as needed to keep hemoglobin above 7 -Transfuse 2 units packed red blood cells for hemoglobin 6 Diabetes mellitus -Insulin Detemir -Insulin sliding scale DVT GI prophylaxis -Teds SCDs -Subcu heparin -Lansoprazole Overall impression: This gentleman presented in severe sepsis with major organ system dysfunction. He remains critically ill and his respiratory status initially deteriorated further following hydration. He now demonstrates acceptable peripheral perfusion and resolution of renal dysfunction. He has required intubation and mechanical ventilation because of his markedly impaired gas exchange and intractable lobar pneumonia. White count is elevated more today and he persists with fever. He is clinically deteriorating and remains critically ill Critical care time 40 minutes aside from procedures.
[2018-08-22] MEDS: Piperacil/Tazo 3.375 GM Premix 50 ML IV.SIG SCH (20:20)
[2018-08-23] MEDS: Propofol 1000 mg/100 ml Inj 1,000 MG/100 ML BOTTLE IV.CONT PRN (00:45)
[2018-08-23] MEDS: Piperacil/Tazo 3.375 GM Premix 50 ML IV.SIG SCH ×4 (02:42→20:45)
[2018-08-23] MEDS: Azithromycin Inj 500 MG in Sodium Chlor 0.9% Inj 250 ML IV.SIG SCH (04:00)
[2018-08-23] MEDS: Oral Hygiene Kit OROPHARYNG SCH ×2 (04:00→13:24)
[2018-08-23] MEDS: Heparin - SQ 10,000 UNITS/ML Vial SQ SCH ×3 (05:09→23:12)
[2018-08-23] MEDS: Insulin NovoLOG Aspart Correctional Sugar Inj SQ SCH ×2 (05:09→13:27)
[2018-08-23 05:10] LABS: Baso # (Auto) 0.1 th/mm3 (0.0-0.2); Baso % (Auto) 0.5 % (0.0-2.0); Hemoglobin 9.4 gm/dL (13.0-17.0); Lymph # (Auto) 1.5 th/mm3 (1.0-4.8); Lymph % (Auto) 7.6 % (9.0-44.0); Mean Corpuscular HGB Conc 33.6 % (32.0-36.0); Mean Corpuscular Hemoglobin 28.7 pg (27.0-34.0); Mean Corpuscular Volume 85.6 fL (80.0-100.0); Mean Platelet Volume 8.1 fL (7.0-11.0); Mono # (Auto) 1.8 th/mm3 (0.0-0.9); Neut # (Auto) 15.3 th/mm3 (1.8-7.7); Neut % (Auto) 77.9 % (16.0-70.0); Platelet Count 364 th/mm3 (150-450); Red Blood Count 3.27 mil/mm3 (4.50-5.90); Red Cell Distribution Width 17.4 % (11.6-17.2); White Blood Count 19.6 th/mm3 (4.0-11.0)
[2018-08-23 05:39] LABS: Carbon Dioxide 28.2 meq/L (21.0-32.0); Potassium 3.4 meq/L (3.5-5.1); Vancomycin,Random 19.2 Comment
[2018-08-23] MEDS: Potassium Chloride 25 MEQ Effervescent Tablet PO PRN (06:21)
[2018-08-23] MEDS: Aspirin 325 MG Tablet G-TUBE SCH (10:39)
[2018-08-23] MEDS: Chlorhexidine 0.12% Oral Kit 15 ML UDC OROPHARYNG SCH ×2 (10:39→21:46)
[2018-08-23] MEDS: Senna/Docusate Sodium 8.6/50 MG Tablet PO SCH ×2 (10:39→20:49)
[2018-08-23] MEDS: Ferrrous Sulfate 300 MG/5 ML UDC G-TUBE SCH (10:39)
[2018-08-23] MEDS: Vancomycin Inj 1,000 MG in Sodium Chlor 0.9% Inj 250 ML IV.SIG SCH (10:42)
--- NOTE | 2018-08-23 11:40 | P.PNCC ---
Subjective Subjective Remarks/Hospital Course: 62-year-old male presents [facility] for an evaluation of altered mental status. As per the staff patient was altered mental status for past 8 hours and his symptoms progressively worsen. So the called 911. Patient was initially a DNR however his mother in the emergency department at the bedside requested a full code. He has a history of previous stroke and left-sided hemiplegia. 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 As per EMS his GCS was 4 when they arrived and after this started fluid he improved to 10. His blood pressure initially was 80 systolic and prior to getting inside the ER it was 100 systolic. Patient obviously was unable to give any history. Blood sugar was 220. Chest x-ray shows new infiltrate in the right lower lobe suggesting aspiration pneumonia. 08/18 1400 hrs: Lactic acid remains elevated at 2.7 but trending down. Creatinine has declined. Urine output improved. Repeat chest x-ray obtained because of worsening hypoxia. Blossoming of right middle and lower lobe pneumonia is apparent. He may well require intubation later today. Ongoing resuscitative efforts to treat his severe sepsis. 08/19: Urine output excellent and renal function continues to improve. Oxygen saturation acceptable but still requiring high flow nasal cannula. We will start using his PEG tube again. Chest x-ray today confirms right middle and lower lobe pneumonia. Cardiac silhouette is quite large and pulmonary vasculature is prominent. He still requires 37 L/min high flow oxygen to maintain sats greater than 90%. 08/20: Low-grade fever persists renal function has improved. Desaturation occurs quickly when oxygen reduced. His hypoxemia is way out of proportion to the appearance of the chest x-ray. 08/21: As expected, persistent hypoxemia is due to a densely consolidated lobar pneumonia involving the right lower lobe. This is a typical aspiration sequelae and will not clear spontaneously and this uncooperative patient. We will need to intubate him and perform bronchoscopy on this right lower lobe, obtaining sputum samples at the same time. 08/22: Low-grade fever and worsening leukocytosis. Culture results pending. Some clearing on the right side but the left lower lobe demonstrates a worsening consolidated infiltrate. We will continue broad antibiotic coverage until we get an organism. We may need to repeat that BAL if the Gram stain today is not productive. 08/23: Continued low-grade fever and leukocytosis. Sputum had a large amount of white cells in the Gram stain and some gram-positive cocci in pairs. Antibiotic coverage is good and we await speciation of the organism. In a patient with chronic aspiration it is likely to be multiple organisms. Right lower lobe has opened up nicely, acute appearance of large left infiltrate is worrisome. Will check chest x-ray again in a.m. Objective Vital Signs / I&O: Vital Signs 08/22/18 12:00 08/22/18 15:54 08/22/18 15:58 Temperature 99.5 F Pulse Rate 80 76 Respiratory Rate 14 12 14 Blood Pressure 100/65 Pulse Oximetry 99 08/22/18 16:00 08/22/18 20:00 08/22/18 20:10 Temperature 98.1 F 100.0 F H Pulse Rate 87 84 83 Respiratory Rate 17 14 17 Blood Pressure 125/67 130/65 Pulse Oximetry 98 99 08/23/18 00:00 08/23/18 00:33 08/23/18 04:00 Temperature 99.0 F 99.0 F Pulse Rate 82 81 85 Respiratory Rate 15 15 15 Blood Pressure 130/69 128/72 Pulse Oximetry 96 98 99 08/23/18 04:08 08/23/18 08:40 Temperature Pulse Rate 79 87 Respiratory Rate 14 17 Blood Pressure Pulse Oximetry 99 94 L Intake & Output 08/22/18 08/23/18 08/23/18 18:59 06:59 18:59 Intake Total 2319 / 2319 803 / 803 Output Total 350 / 350 500 / 500 Balance 1968 / 1968 303 / 303 Weight 52.3 kg Intake: IV 2049 / 2049 450 / 450 D10W Inj 1,000 ML @ 20 mls/hr 1000 / 1000 IV.CONT .Q24H [facility] Rx#:[id number] Diprivan 1000 mg/100 ml Inj 1, 100 / 100 000 mg In 100 ml @ 5 MCG/KG/MIN 1.596 mls/hr IV.CONT TITRATE PRN Rx#:[id number] Azithromycin Inj 500 MG In NS 250 / 250 250 / 250 Inj 250 ML @ 250 mls/hr IV.SIG Q24H [facility] Rx#:[id number] Zosyn 3.375 GM Premix 50 ML @ 100 / 100 100 mls/hr IV.SIG Q6H [facility] Rx#: [id number] Zosyn 4.5 GM Premix 4.5 gm In 200 / 200 100 ml @ 200 mls/hr IV.SIG Q6H [facility] Rx#:[id number] KCl 20 mEq Premix Inj 20 meq In 100 / 100 100 ml @ 50 mls/hr IV.SIG Q2H PRN Rx#:[id number] Vancomycin Inj 1,000 MG In NS 500 / 500 Inj 250 ML @ 250 mls/hr IV.SIG Q12H [facility] Rx#:[id number] Tube Feeding 149 / 149 233 / 233 Tube Irrigant 120 / 120 120 / 120 Output: Urine 350 / 350 Urine Amount (Catheter) 500 / 500 Condom 500 / 500 Other: Date of Last Bowel Movement 08/20/18 08/20/18 # Bowel Movements 0 0 # Incontinent Bowel Movements 0 0 Result Diagrams: 08/23/18 04:24 08/23/18 04:24 Objective Remarks: - Constitutional chronically ill appearing, intubated and mechanically ventilated - Routine HEENT Exam Head: Present: normocephalic Eye: Present: PERRL, normal accommodation - Routine Neck Exam Present: supple, full ROM. Airway widely patent absent: JVD, carotid bruit - Routine Respiratory Exam Present: rhonchi, crackles. Improved breath sounds right base. Scattered rhonchi. Little sputum production. - Routine Cardiovascular Exam Present: RRR, S1, S2, no JVD - Routine Abdominal Exam Present: soft, normoactive bowel sounds. No guarding. absent: tenderness, distention - Routine Extremities Exam No deformity, warm, well-perfused. Absent: cyanosis, clubbing, edema - Routine Skin Exam Absent: intact, cyanosis, erythema - Routine Neurological Exam Present: When light uses right arm with purpose. Encephalopathy persists. Left -sided hemiplegia permanent Assessment and Plan - Problem List (1) Aspiration pneumonia Code(s): J69.0 - Pneumonitis due to inhalation of food and vomit Status: Acute (2) Acute hypoxemic respiratory failure Code(s): J96.01 - Acute respiratory failure with hypoxia Status: Acute (3) Metabolic encephalopathy Code(s): G93.41 - Metabolic encephalopathy Status: Acute (4) LUCITA (acute kidney injury) Code(s): N17.9 - Acute kidney failure, unspecified Status: Acute (5) Protein-calorie malnutrition, moderate Code(s): E44.0 - Moderate protein-calorie malnutrition Status: Acute - Assessment and Plan Plan: Sepsis -Continue aggressive IV fluid hydration -Broad-spectrum antibiotic -Blood cultures -CXR new infiltrate -Likely pneumonia/aspiration -Serial lactic acid determination -Cultures negative to date. -Repeat urine culture with deep suctioning -> gram-positive cocci, numerous white blood cells. Await speciation to narrow antibiotic spectrum. Hypoxemic respiratory failure -Patient required intubation and the institution of mechanical ventilation yesterday 08/21 -Some improvement in aeration of the right lower lobe. Worsening density involving the left lower lobe -Continue mechanical ventilation PRVC mode -He does not cough or participate in pulmonary clearance exercises due to his stroke so will leave intubated for now. Pneumonia -Vancomycin, Zosyn, Zithromax -DuoNeb's as needed -We will obtain CAT scan to better visualize the lung parenchyma. -CAT scan demonstrates lobar pneumonia right lower lobe, improved after bronchoscopy -New dense left-sided infiltrate Lactic acidosis -Due to above -Monitor trend -IV fluid hydration -Resolved Hyperlipemia -Atorvastatin History of CVA -Aspirin -Atorvastatin -Cyclobenzaprine Anemia -Ferrous Sulfate -Monitor H&H -Transfuse as needed to keep hemoglobin above 7 -Transfuse 2 units packed red blood cells for hemoglobin 6 Diabetes mellitus -Insulin Detemir -Insulin sliding scale DVT GI prophylaxis -Teds SCDs -Subcu heparin -Lansoprazole Overall impression: This gentleman presented in severe sepsis with major organ system dysfunction. He remains critically ill and his respiratory status initially deteriorated further following hydration. He now demonstrates acceptable peripheral perfusion and resolution of renal dysfunction. He has required intubation and mechanical ventilation because of his markedly impaired gas exchange and intractable lobar pneumonia. White count is elevated more today and he persists with fever. He is clinically deteriorating and remains critically ill. He does not cough or clear his airway well when extubated, so tracheostomy is in his future should his mother decide to persist with ongoing aggressive efforts. Critical care time 42 minutes aside from procedures.
[2018-08-23 14:57] LABS: Alanine Aminotransferase 26 U/L (12-78); Albumin 1.5 g/dL (3.4-5.0); Alkaline Phosphatase 98 U/L (45-117); Anion Gap 7 meq/L (5-15); Aspartate Aminotransferase 39 U/L (15-37); Blood Urea Nitrogen 20 mg/dL (7-18); Calcium 8.1 mg/dL (8.5-10.1); Carbon Dioxide 24.8 meq/L (21.0-32.0); Chloride 110 meq/L (98-107); Glomerular Filtration Rate Greater Than 89 mL/min (>89); Glucose,Random 211 mg/dL (74-106); Total Protein 6.7 g/dL (6.4-8.2)
[2018-08-23 14:58] LABS: Sodium 142 meq/L (136-145)
[2018-08-23] MEDS: Sod Chloride 0.9% Inj 1,000 ML IV.SIG SCH (20:48)
[2018-08-24] MEDS: Propofol 1000 mg/100 ml Inj 1,000 MG/100 ML BOTTLE IV.CONT PRN (01:29)
[2018-08-24] MEDS: Insulin NovoLOG Aspart Correctional Sugar Inj SQ SCH ×4 (01:31→18:22)
[2018-08-24] MEDS: Oral Hygiene Kit OROPHARYNG SCH ×6 (01:31→21:10)
[2018-08-24] MEDS: Vancomycin Inj 1,000 MG in Sodium Chlor 0.9% Inj 250 ML IV.SIG SCH ×2 (01:40→19:51)
[2018-08-24] MEDS: fentaNYL 10 mcg/mL Premix Drip 2,500 MCG/250 ML BAG IV.SIG PRN (02:19)
[2018-08-24] MEDS: Piperacil/Tazo 3.375 GM Premix 50 ML IV.SIG SCH ×2 (04:33→08:48)
[2018-08-24] MEDS: Sod Chloride 0.9% Inj 1,000 ML IV.SIG SCH ×2 (04:34→19:37)
[2018-08-24] MEDS: Azithromycin Inj 500 MG in Sodium Chlor 0.9% Inj 250 ML IV.SIG SCH (04:35)
--- NOTE | 2018-08-24 05:42 | XR ---
EXAM DATE: 08/24/2018 5:33 AM EDT AGE/SEX: 62 years / Male INDICATIONS: Pneumonia, hypoxemia. CLINICAL DATA: This is the patient's subsequent encounter. Patient reports that signs and symptoms h ave been present for 4 - 6 days and indicates a pain score of Nonresponsive. MEDICAL/SURGICAL HISTORY: Hypertension. Anemia. Diabetes mellitus type II. Stroke. . PEG Tu be. COMPARISON: [facility] – [place], CHEST 1V SINGLE AP, 08/22/2018. . FINDINGS: Patchy consolidation of the right lung not significantly changed. Partial clearing of the left base, now very mild. A small left pleural effusion is likely, also decreased. No pneumothorax seen. Endotracheal tube tip is only millimeters above the apm. CONCLUSION: 1. Endotracheal tube tip is close to the pam. 2. Mild patchy consolidation of the right lung not significantly changed. 3. Decreased consolidation and effusion at the left base. Electronically signed by: Pawan Abreu MD 08/24/2018 5:40 AM EDT
[2018-08-24] MEDS: Heparin - SQ 10,000 UNITS/ML Vial SQ SCH ×3 (06:33→22:02)
[2018-08-24 08:24] LABS: Anion Gap 8 meq/L (5-15); Blood Urea Nitrogen 15 mg/dL (7-18); Carbon Dioxide 23.8 meq/L (21.0-32.0); Chloride 114 meq/L (98-107); Glomerular Filtration Rate Greater Than 89 mL/min (>89); Glucose,Random 125 mg/dL (74-106); Potassium 4.1 meq/L (3.5-5.1); Sodium 146 meq/L (136-145)
[2018-08-24] MEDS: Aspirin 325 MG Tablet G-TUBE SCH (08:47)
[2018-08-24] MEDS: Senna/Docusate Sodium 8.6/50 MG Tablet PO SCH ×2 (08:47→22:00)
[2018-08-24] MEDS: Ferrrous Sulfate 300 MG/5 ML UDC G-TUBE SCH (08:47)
[2018-08-24] MEDS: Chlorhexidine 0.12% Oral Kit 15 ML UDC OROPHARYNG SCH (09:14)
[2018-08-24 11:16] LABS: Baso # (Auto) 0.1 th/mm3 (0.0-0.2); Baso % (Auto) 0.6 % (0.0-2.0); Eos # (Auto) 1.2 th/mm3 (0.0-0.4); Eos % (Auto) 7.6 % (0.0-4.0); Hematocrit 29.7 % (39.0-51.0); Hemoglobin 9.8 gm/dL (13.0-17.0); Lymph # (Auto) 1.5 th/mm3 (1.0-4.8); Mean Corpuscular HGB Conc 32.9 % (32.0-36.0); Mean Corpuscular Hemoglobin 28.4 pg (27.0-34.0); Mean Corpuscular Volume 86.4 fL (80.0-100.0); Mean Platelet Volume 8.3 fL (7.0-11.0); Mono # (Auto) 1.4 th/mm3 (0.0-0.9); Mono % (Auto) 8.6 % (0.0-8.0); Neut # (Auto) 12.2 th/mm3 (1.8-7.7); Neut % (Auto) 74.2 % (16.0-70.0); Platelet Count 409 th/mm3 (150-450); Red Blood Count 3.44 mil/mm3 (4.50-5.90); Red Cell Distribution Width 17.9 % (11.6-17.2); White Blood Count 16.4 th/mm3 (4.0-11.0)
--- NOTE | 2018-08-24 12:03 | P.PNCC ---
Subjective Subjective Remarks/Hospital Course: 62-year-old male [facility] from [facility] for an evaluation of altered mental status. As per the staff patient was altered mental status for past 8 hours and his symptoms progressively worsen. So the called 911. Patient was initially a DNR however his mother in the emergency department at the bedside requested a full code. He has a history of previous stroke and left-sided hemiplegia. 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 As per EMS his GCS was 4 when they arrived and after this started fluid he improved to 10. His blood pressure initially was 80 systolic and prior to getting inside the ER it was 100 systolic. Patient obviously was unable to give any history. Blood sugar was 220. Chest x-ray shows new infiltrate in the right lower lobe suggesting aspiration pneumonia. 08/18 1400 hrs: Lactic acid remains elevated at 2.7 but trending down. Creatinine has declined. Urine output improved. Repeat chest x-ray obtained because of worsening hypoxia. Blossoming of right middle and lower lobe pneumonia is apparent. He may well require intubation later today. Ongoing resuscitative efforts to treat his severe sepsis. 08/19: Urine output excellent and renal function continues to improve. Oxygen saturation acceptable but still requiring high flow nasal cannula. We will start using his PEG tube again. Chest x-ray today confirms right middle and lower lobe pneumonia. Cardiac silhouette is quite large and pulmonary vasculature is prominent. He still requires 37 L/min high flow oxygen to maintain sats greater than 90%. 08/20: Low-grade fever persists renal function has improved. Desaturation occurs quickly when oxygen reduced. His hypoxemia is way out of proportion to the appearance of the chest x-ray. 08/21: As expected, persistent hypoxemia is due to a densely consolidated lobar pneumonia involving the right lower lobe. This is a typical aspiration sequelae and will not clear spontaneously and this uncooperative patient. We will need to intubate him and perform bronchoscopy on this right lower lobe, obtaining sputum samples at the same time. 08/22: Low-grade fever and worsening leukocytosis. Culture results pending. Some clearing on the right side but the left lower lobe demonstrates a worsening consolidated infiltrate. We will continue broad antibiotic coverage until we get an organism. We may need to repeat that BAL if the Gram stain today is not productive. 08/23: Continued low-grade fever and leukocytosis. Sputum had a large amount of white cells in the Gram stain and some gram-positive cocci in pairs. Antibiotic coverage is good and we await speciation of the organism. In a patient with chronic aspiration it is likely to be multiple organisms. Right lower lobe has opened up nicely, acute appearance of large left infiltrate is worrisome. Will check chest x-ray again in a.m. 08/24: wbc improving. tolerated 6 hours CPAP yesterday, but then tired out. high risk for re-intubation: poor cough and gag. Objective Vital Signs / I&O: Vital Signs 08/23/18 12:00 08/23/18 12:14 08/23/18 16:00 Temperature 37.7 C H 37.3 C Pulse Rate 73 72 70 Respiratory Rate 15 12 Blood Pressure 148/71 H 131/61 Pulse Oximetry 99 98 99 08/23/18 18:02 08/23/18 20:00 08/23/18 20:49 Temperature 37.3 C Pulse Rate 72 69 79 Respiratory Rate 14 14 14 Blood Pressure 118/64 Pulse Oximetry 99 95 08/23/18 20:50 08/24/18 00:00 08/24/18 00:34 Temperature 36.6 C Pulse Rate 66 67 Respiratory Rate 14 14 14 Blood Pressure 160/73 H Pulse Oximetry 95 08/24/18 00:35 08/24/18 03:12 08/24/18 03:13 Temperature Pulse Rate 62 Respiratory Rate 15 14 14 Blood Pressure Pulse Oximetry 97 96 08/24/18 04:00 08/24/18 04:30 08/24/18 08:00 Temperature 36.6 C 37.1 C Pulse Rate 66 66 Respiratory Rate 14 14 14 Blood Pressure 155/74 H 152/71 H Pulse Oximetry 96 94 L 08/24/18 09:05 Temperature Pulse Rate 85 Respiratory Rate 10 L Blood Pressure Pulse Oximetry 94 L Intake & Output 08/23/18 08/24/18 08/24/18 18:59 06:59 18:59 Intake Total 608 / 608 2350 / 2350 50 / 50 Output Total 275 / 275 525 / 525 Balance 333 / 333 1825 / 1825 50 / 50 Weight 54.5 kg Intake: IV 350 / 350 1950 / 1950 50 / 50 Diprivan 1000 mg/100 ml Inj 1, 100 / 100 000 mg In 100 ml @ 5 MCG/KG/MIN 1.596 mls/hr IV.CONT TITRATE PRN Rx#:[id number] Azithromycin Inj 500 MG In NS 250 / 250 Inj 250 ML @ 250 mls/hr IV.SIG Q24H JADA Rx#:[id number] Zosyn 3.375 GM Premix 50 ML @ 100 / 100 100 / 100 50 / 50 100 mls/hr IV.SIG Q6H JADA Rx#: [id number] NS Inj 1,000 ML @ 75 mls/hr IV. 1000 / 1000 SIG .[id number] JADA Rx#:[id number] Vancomycin Inj 1,000 MG In NS 250 / 250 250 / 250 Inj 250 ML @ 250 mls/hr IV.SIG Q18H JADA Rx#:[id number] fentaNYL 10 mcg/mL Premix Drip 250 / 250 2,500 mcg In 250 ml @ 50 MCG/HR 5 mls/hr IV.SIG TITRATE PRN Rx #:[id number] Tube Feeding 228 / 228 200 / 200 Tube Irrigant 30 / 30 Water Bolus Amount 0 / 0 200 / 200 Output: Urine 275 / 275 Urine/Stool Mix 0 / 0 Urine Amount (Catheter) 525 / 525 Straight 525 / 525 Other: Date of Last Bowel Movement 08/20/18 08/23/18 Result Diagrams: 08/24/18 10:10 08/24/18 07:50 Objective Remarks: gen: frail cachectic male, appears older than stated age, intubated. heent: nc. at. perrl. mmm. neck: no jvd. trachea midline. chest: equal chest rise. prvc mode. fio2 40%. cv: normal rate, regular rhythm. sinus. abd: soft, nontender, nondistended. no guarding. extr: no edema. distal pulses 2+. neuro: RASS -3. does follow commands on right. poor cough. poor gag. Assessment and Plan - Problem List (1) Aspiration pneumonia Code(s): J69.0 - Pneumonitis due to inhalation of food and vomit Status: Acute (2) Acute hypoxemic respiratory failure Code(s): J96.01 - Acute respiratory failure with hypoxia Status: Acute (3) Metabolic encephalopathy Code(s): G93.41 - Metabolic encephalopathy Status: Acute (4) LUCITA (acute kidney injury) Code(s): N17.9 - Acute kidney failure, unspecified Status: Acute (5) Protein-calorie malnutrition, moderate Code(s): E44.0 - Moderate protein-calorie malnutrition Status: Acute - Assessment and Plan Plan: Assessment: 62yM s/p CVA with hypoxic respiratory failure. will work towards separation from mechanical ventilation, but this may be a difficult process. high risk for re-intubation. overall prognosis is quite guarded given severe deficits. Severe Sepsis Healthcare associated aspiration pneumonia -Continue aggressive IV fluid hydration -Broad-spectrum antibiotic -Blood cultures -CXR new infiltrate -Likely pneumonia/aspiration -Serial lactic acid determination -Cultures negative to date. -Repeat urine culture with deep suctioning -> gram-positive cocci, numerous white blood cells. Await speciation to narrow antibiotic spectrum. Acute Hypoxemic respiratory failure -Patient required intubation and the institution of mechanical ventilation 08/21 -Some improvement in aeration of the right lower lobe. Worsening density involving the left lower lobe -Continue mechanical ventilation PRVC mode -He does not cough or participate in pulmonary clearance exercises due to his stroke. -high risk for reintubation and need for tracheostomy. Healthcare associated aspiration pneumonia -Vancomycin, Zosyn, Zithromax -DuoNeb's as needed -CAT scan demonstrates lobar pneumonia right lower lobe, improved after bronchoscopy -New dense left-sided infiltrate Lactic acidosis -Due to above -Monitor trend -IV fluid hydration -Resolved Hyperlipemia -Atorvastatin History of CVA -Aspirin -Atorvastatin -Cyclobenzaprine Anemia -Ferrous Sulfate -Monitor H&H -Transfuse as needed to keep hemoglobin above 7 -Transfuse 2 units packed red blood cells for hemoglobin 6 Diabetes mellitus -Insulin Detemir -Insulin sliding scale DVT GI prophylaxis -Teds SCDs -Subcu heparin -Lansoprazole Overall impression: This gentleman presented in severe sepsis with major organ system dysfunction. He remains critically ill and his respiratory status initially deteriorated further following hydration. He now demonstrates acceptable peripheral perfusion and resolution of renal dysfunction. He has required intubation and mechanical ventilation because of his markedly impaired gas exchange and intractable lobar pneumonia.
[2018-08-24] MEDS ORDERED: Pharmacy Ordered Lab Info OTHER ONE (13:45)
[2018-08-24] MEDS: Piperacil/Tazo 4.5 GM Premix 4.5 GM/100 ML BAG IV.SIG SCH ×2 (15:57→22:00)
--- NOTE | 2018-08-24 16:55 | P.DIET ---
Nutritional Evaluation Type of nutrition evaluation: follow-up Nutrition consult regarding: Tube Feeding Subjective Subjective Comments: Pt resides in a SNF and has residual L sided hemiplegia. Objective - Diagnosis Sepsis - Objective % IBW: 74 (IBW = 154#) Body Weight Used for Calculations: Actual (52.1 kg) Energy Needs - Lower Range (kCal/kg): 30 Energy Needs - Upper Range (kCal/kg): 35 Lower Limit kCal/kg (kCals): 1,563 Upper Limit kCal/kg (kCals): 1,824 Lower Limit Protein Factor (Grams per Kg): 1.2 Upper Limit Protein Factor (Grams per Kg): 1.6 Lower Protein Needs (Protein): 63 Upper Protein Needs (Protein): 83 Dietitian Reviewed in Medical Record: Curent medications, Intake & Output, Labs , Medical history, Tube feeding Diet Order: NPO Assessment Assessment: Pt remains at high nutrition risk 2' to his need for TFing. He is currently only reeiving 20 mls/hr of TF. To meet nutritional needs with Glucerna 1.5, recommend goal rate of 50 mls/hr to provide 1800 kcals, 99 gms protein and 911 mls of free water. Labs, wts and clinical course reviewed. Recommendations: Glucerna 1.5 @ 50 mls/hr goal Dietitian to Monitor: Lab values, Intake & Output, Tube feeding tolerance, Weight change, Wound/skin status, Medical course
[2018-08-25] MEDS: Chlorhexidine 0.12% Oral Kit 15 ML UDC OROPHARYNG SCH ×3 (01:11→20:00)
[2018-08-25] MEDS: Insulin NovoLOG Aspart Correctional Sugar Inj SQ SCH ×5 (01:14→18:17)
[2018-08-25] MEDS: Piperacil/Tazo 4.5 GM Premix 4.5 GM/100 ML BAG IV.SIG SCH ×4 (02:16→21:32)
[2018-08-25] MEDS: Azithromycin Inj 500 MG in Sodium Chlor 0.9% Inj 250 ML IV.SIG SCH (04:16)
[2018-08-25] MEDS: Oral Hygiene Kit OROPHARYNG SCH ×3 (04:17→17:39)
[2018-08-25 05:57] LABS: Baso # (Auto) 0.1 th/mm3 (0.0-0.2); Baso % (Auto) 0.8 % (0.0-2.0); Eos # (Auto) 0.2 th/mm3 (0.0-0.4); Eos % (Auto) 1.3 % (0.0-4.0); Hematocrit 28.7 % (39.0-51.0); Lymph # (Auto) 0.9 th/mm3 (1.0-4.8); Lymph % (Auto) 6.9 % (9.0-44.0); Mean Corpuscular HGB Conc 31.5 % (32.0-36.0); Mean Corpuscular Hemoglobin 27.3 pg (27.0-34.0); Mean Corpuscular Volume 86.8 fL (80.0-100.0); Mean Platelet Volume 8.4 fL (7.0-11.0); Mono # (Auto) 0.9 th/mm3 (0.0-0.9); Mono % (Auto) 6.5 % (0.0-8.0); Neut # (Auto) 11.4 th/mm3 (1.8-7.7); Neut % (Auto) 84.5 % (16.0-70.0); Platelet Count 428 th/mm3 (150-450); Red Blood Count 3.31 mil/mm3 (4.50-5.90); Red Cell Distribution Width 17.9 % (11.6-17.2); White Blood Count 13.5 th/mm3 (4.0-11.0)
[2018-08-25] MEDS: Heparin - SQ 10,000 UNITS/ML Vial SQ SCH ×3 (05:57→21:30)
[2018-08-25] MEDS: Sod Chloride 0.9% Inj 1,000 ML IV.SIG SCH ×2 (09:05→21:00)
[2018-08-25] MEDS: Aspirin 325 MG Tablet G-TUBE SCH (09:09)
[2018-08-25] MEDS: Senna/Docusate Sodium 8.6/50 MG Tablet PO SCH ×2 (09:10→21:31)
[2018-08-25] MEDS: Ferrrous Sulfate 300 MG/5 ML UDC G-TUBE SCH (09:11)
[2018-08-25 12:31] LABS: Anion Gap 10 meq/L (5-15); Blood Urea Nitrogen 14 mg/dL (7-18); Calcium 8.3 mg/dL (8.5-10.1); Carbon Dioxide 23.7 meq/L (21.0-32.0); Chloride 112 meq/L (98-107); Glomerular Filtration Rate Greater Than 89 mL/min (>89); Glucose,Random 203 mg/dL (74-106); Phosphorus 2.7 mg/dL (2.5-4.9); Potassium 3.7 meq/L (3.5-5.1); Sodium 146 meq/L (136-145)
[2018-08-25] MEDS ORDERED: Pharmacy Ordered Lab Info OTHER ONE (13:45)
[2018-08-25] MEDS: Vancomycin Inj 750 MG in Sodium Chlor 0.9% Inj 250 ML IV.SIG SCH (17:39)
--- NOTE | 2018-08-25 17:48 | P.PNCC ---
Subjective Subjective Remarks/Hospital Course: 62-year-old male [facility] for an evaluation of altered mental status. As per the staff patient was altered mental status for past 8 hours and his symptoms progressively worsen. So the called 911. Patient was initially a DNR however his mother in the emergency department at the bedside requested a full code. He has a history of previous stroke and left-sided hemiplegia. 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 As per EMS his GCS was 4 when they arrived and after this started fluid he improved to 10. His blood pressure initially was 80 systolic and prior to getting inside the ER it was 100 systolic. Patient obviously was unable to give any history. Blood sugar was 220. Chest x-ray shows new infiltrate in the right lower lobe suggesting aspiration pneumonia. 08/18 1400 hrs: Lactic acid remains elevated at 2.7 but trending down. Creatinine has declined. Urine output improved. Repeat chest x-ray obtained because of worsening hypoxia. Blossoming of right middle and lower lobe pneumonia is apparent. He may well require intubation later today. Ongoing resuscitative efforts to treat his severe sepsis. 08/19: Urine output excellent and renal function continues to improve. Oxygen saturation acceptable but still requiring high flow nasal cannula. We will start using his PEG tube again. Chest x-ray today confirms right middle and lower lobe pneumonia. Cardiac silhouette is quite large and pulmonary vasculature is prominent. He still requires 37 L/min high flow oxygen to maintain sats greater than 90%. 08/20: Low-grade fever persists renal function has improved. Desaturation occurs quickly when oxygen reduced. His hypoxemia is way out of proportion to the appearance of the chest x-ray. 08/21: As expected, persistent hypoxemia is due to a densely consolidated lobar pneumonia involving the right lower lobe. This is a typical aspiration sequelae and will not clear spontaneously and this uncooperative patient. We will need to intubate him and perform bronchoscopy on this right lower lobe, obtaining sputum samples at the same time. 08/22: Low-grade fever and worsening leukocytosis. Culture results pending. Some clearing on the right side but the left lower lobe demonstrates a worsening consolidated infiltrate. We will continue broad antibiotic coverage until we get an organism. We may need to repeat that BAL if the Gram stain today is not productive. 08/23: Continued low-grade fever and leukocytosis. Sputum had a large amount of white cells in the Gram stain and some gram-positive cocci in pairs. Antibiotic coverage is good and we await speciation of the organism. In a patient with chronic aspiration it is likely to be multiple organisms. Right lower lobe has opened up nicely, acute appearance of large left infiltrate is worrisome. Will check chest x-ray again in a.m. 08/24: wbc improving. tolerated 6 hours CPAP yesterday, but then tired out. high risk for re-intubation: poor cough and gag. 08/25: doing quite well. on nc o2. wbc downtrending. will need to get back to rehab. Objective Vital Signs / I&O: Vital Signs 08/24/18 20:00 08/24/18 21:35 08/24/18 22:00 Temperature 37.8 C H Pulse Rate 96 H 90 92 H Respiratory Rate 16 20 Blood Pressure 161/80 H Pulse Oximetry 94 L 94 L 08/24/18 23:22 08/25/18 00:00 08/25/18 02:00 Temperature 37.9 C H Pulse Rate 95 H 96 H 88 Respiratory Rate 20 15 Blood Pressure 173/83 H Pulse Oximetry 100 08/25/18 03:55 08/25/18 04:00 08/25/18 08:00 Temperature 37.2 C Pulse Rate 88 89 82 Respiratory Rate 20 22 Blood Pressure 170/79 H Pulse Oximetry 100 08/25/18 08:33 08/25/18 12:09 08/25/18 16:30 Temperature Pulse Rate 81 79 92 H Respiratory Rate 25 H 19 22 Blood Pressure Pulse Oximetry 97 Intake & Output 08/24/18 08/25/18 08/25/18 18:59 06:59 18:59 Intake Total 1909 1040 / 1040 1100 / 1100 Output Total 450 / 450 Balance 1909 590 / 590 1100 / 1100 Weight 53.6 kg Intake: IV 1570 / 1570 700 / 700 1100 / 1100 Diprivan 1000 mg/100 ml Inj 1, 100 / 100 000 mg In 100 ml @ 5 MCG/KG/MIN 1.596 mls/hr IV.CONT TITRATE PRN Rx#:[id number] Azithromycin Inj 500 MG In NS 250 / 250 Inj 250 ML @ 250 mls/hr IV.SIG Q24H JADA Rx#:[id number] Zosyn 3.375 GM Premix 50 ML @ 50 / 50 100 mls/hr IV.SIG Q6H JADA Rx#: [id number] Zosyn 4.5 GM Premix 4.5 gm In 100 / 100 200 / 200 100 / 100 100 ml @ 200 mls/hr IV.SIG Q6H JADA Rx#:[id number] NS Inj 1,000 ML @ 75 mls/hr IV. 1000 / 1000 1000 / 1000 SIG .[id number] JADA Rx#:[id number] Vancomycin Inj 1,000 MG In NS 250 / 250 250 / 250 Inj 250 ML @ 250 mls/hr IV.SIG Q18H JADA Rx#:[id number] fentaNYL 10 mcg/mL Premix Drip 70 / 70 2,500 mcg In 250 ml @ 50 MCG/HR 5 mls/hr IV.SIG TITRATE PRN Rx #:[id number] Tube Feeding 260 / 260 220 / 220 Tube Irrigant 80 / 80 Water Bolus Amount 120 / 120 Output: Urine Amount (Catheter) 450 / 450 Condom 450 / 450 Other: # Incontinent Voids 4 2 Date of Last Bowel Movement 08/23/18 # Bowel Movements 0 Result Diagrams: 08/25/18 05:11 08/25/18 11:25 Objective Remarks: gen: frail cachectic male, appears older than stated age, lying in bed, awake, alert. heent: nc. at. perrl. mmm. neck: no jvd. trachea midline. chest: equal chest rise. 3l o2 by nc. unlabored. cv: normal rate, regular rhythm. sinus. abd: soft, nontender, nondistended. no guarding. extr: no edema. distal pulses 2+. neuro: RASS 0. follows commands on right. Assessment and Plan - Problem List (1) Aspiration pneumonia Code(s): J69.0 - Pneumonitis due to inhalation of food and vomit Status: Acute (2) Acute hypoxemic respiratory failure Code(s): J96.01 - Acute respiratory failure with hypoxia Status: Acute (3) Metabolic encephalopathy Code(s): G93.41 - Metabolic encephalopathy Status: Acute (4) LUCITA (acute kidney injury) Code(s): N17.9 - Acute kidney failure, unspecified Status: Acute (5) Protein-calorie malnutrition, moderate Code(s): E44.0 - Moderate protein-calorie malnutrition Status: Acute - Assessment and Plan Plan: Assessment: 62yM s/p CVA with hypoxic respiratory failure. clinically improving. still very high risk for reintubation or decline. aggressive pulmonary toilet and PT. will need to work towards getting back to inpatient rehab. Severe Sepsis Healthcare associated aspiration pneumonia -d/c mivf -Broad-spectrum antibiotic -Blood cultures -CXR new infiltrate -Likely pneumonia/aspiration -Serial lactic acid determination -Cultures negative to date. -Repeat urine culture with deep suctioning -> gram-positive cocci, numerous white blood cells. Await speciation to narrow antibiotic spectrum. Acute Hypoxemic respiratory failure- resolving -Patient required intubation and the institution of mechanical ventilation 08/21 - extubated 08/24 -Some improvement in aeration of the right lower lobe. Worsening density involving the left lower lobe -He does not cough or participate in pulmonary clearance exercises due to his stroke. -high risk for reintubation and need for tracheostomy. - PT consult Healthcare associated aspiration pneumonia -Vancomycin, Zosyn, Zithromax -DuoNeb's as needed -CAT scan demonstrates lobar pneumonia right lower lobe, improved after bronchoscopy -New dense left-sided infiltrate Lactic acidosis- resolved -Due to above -Monitor trend -IV fluid hydration -Resolved Hyperlipemia -Atorvastatin History of CVA -Aspirin -Atorvastatin -Cyclobenzaprine Anemia -Ferrous Sulfate -Monitor H&H -Transfuse as needed to keep hemoglobin above 7 -Transfuse 2 units packed red blood cells for hemoglobin 6 Diabetes mellitus -Insulin Detemir -Insulin sliding scale DVT GI prophylaxis -Teds SCDs -Subcu heparin -Lansoprazole
[2018-08-26] MEDS: Oral Hygiene Kit OROPHARYNG SCH ×4 (00:35→17:03)
[2018-08-26] MEDS: Insulin NovoLOG Aspart Correctional Sugar Inj SQ SCH ×5 (00:43→23:45)
[2018-08-26] MEDS: Piperacil/Tazo 4.5 GM Premix 4.5 GM/100 ML BAG IV.SIG SCH ×4 (03:14→20:38)
[2018-08-26] MEDS: Azithromycin Inj 500 MG in Sodium Chlor 0.9% Inj 250 ML IV.SIG SCH (03:56)
[2018-08-26] MEDS: Vancomycin Inj 750 MG in Sodium Chlor 0.9% Inj 250 ML IV.SIG SCH (04:51)
[2018-08-26] MEDS: Heparin - SQ 10,000 UNITS/ML Vial SQ SCH ×3 (05:31→22:10)
--- NOTE | 2018-08-26 06:21 | XR ---
EXAM DATE: 08/26/2018 6:03 AM EDT AGE/SEX: 62 years / Male INDICATIONS: Shortness of breath. CLINICAL DATA: This is the patient's subsequent encounter. Patient reports that signs and symptoms h ave been present for 4 - 6 days and indicates a pain score of Nonresponsive. MEDICAL/SURGICAL HISTORY: . Hypertension. Anemia. Diabetes mellitus type II. Stroke. None. COMPARISON: [facility] – [place]ST 1V SINGLE AP, 08/24/2018. . FINDINGS: Patchy parenchymal consolidation again noted of both lungs, fairly diffuse on the right and basilar p redominant on the left. Accounting for differences in technique I believe both sides are slightly wor se. Also suspected small, bilateral pleural effusions developing. Heart size stable, upper limits of normal. Patient has been extubated. CONCLUSION: Worsening parenchymal consolidation and small effusions bilaterally as above. Electronically signed by: Pawan Abreu MD 08/26/2018 6:20 AM EDT
[2018-08-26 06:28] LABS: Baso # (Auto) 0.2 th/mm3 (0.0-0.2); Eos # (Auto) 0.1 th/mm3 (0.0-0.4); Eos % (Auto) 0.7 % (0.0-4.0); Hematocrit 27.7 % (39.0-51.0); Hemoglobin 9.1 gm/dL (13.0-17.0); Mean Corpuscular HGB Conc 33.1 % (32.0-36.0); Mean Corpuscular Hemoglobin 28.4 pg (27.0-34.0); Mean Platelet Volume 8.5 fL (7.0-11.0); Mono # (Auto) 1.1 th/mm3 (0.0-0.9); Mono % (Auto) 6.6 % (0.0-8.0); Neut % (Auto) 85.7 % (16.0-70.0); Platelet Count 441 th/mm3 (150-450); Red Blood Count 3.22 mil/mm3 (4.50-5.90); Red Cell Distribution Width 17.6 % (11.6-17.2); White Blood Count 16.4 th/mm3 (4.0-11.0)
[2018-08-26 06:56] LABS: Anion Gap 9 meq/L (5-15); Blood Urea Nitrogen 15 mg/dL (7-18); Calcium 8.5 mg/dL (8.5-10.1); Carbon Dioxide 28.9 meq/L (21.0-32.0); Chloride 111 meq/L (98-107); Glomerular Filtration Rate Greater Than 89 mL/min (>89); Glucose,Random 221 mg/dL (74-106); Potassium 3.4 meq/L (3.5-5.1); Sodium 149 meq/L (136-145)
[2018-08-26] MEDS: Potassium Chloride 25 MEQ Effervescent Tablet PO PRN (07:16)
[2018-08-26] MEDS: Metoprolol Tartrate 25 MG Tablet PO SCH ×2 (09:00→20:37)
[2018-08-26] MEDS: Senna/Docusate Sodium 8.6/50 MG Tablet PO SCH ×2 (09:00→20:39)
[2018-08-26] MEDS: Chlorhexidine 0.12% Oral Kit 15 ML UDC OROPHARYNG SCH ×2 (09:00→20:39)
[2018-08-26] MEDS: amLODIPine 10 MG Tablet PO SCH (09:00)
[2018-08-26] MEDS: Aspirin 325 MG Tablet G-TUBE SCH (09:00)
[2018-08-26] MEDS: Ferrrous Sulfate 300 MG/5 ML UDC G-TUBE SCH (09:01)
[2018-08-26] MEDS: Sod Chloride 0.9% Inj 1,000 ML IV.SIG SCH (11:18)
--- NOTE | 2018-08-26 15:16 | P.PN ---
Subjective Interval history: awake and alert, toelrating tube feedings at goal rate does own suctioning- Physical Exam Vital signs: Vital Signs 08/25/18 16:00 08/25/18 16:30 08/25/18 19:00 Temperature 99.6 F Pulse Rate 80 92 H Respiratory Rate 24 22 Blood Pressure 173/75 H Pulse Oximetry 94 L 94 L 08/25/18 19:45 08/25/18 20:00 08/26/18 00:00 Temperature 99.1 F 99.5 F Pulse Rate 84 80 Respiratory Rate 22 18 Blood Pressure 149/95 H 173/83 H Pulse Oximetry 94 L 94 L 93 L 08/26/18 04:00 08/26/18 07:00 08/26/18 08:00 Temperature 98.8 F 98.5 F Pulse Rate 78 82 Respiratory Rate 24 24 Blood Pressure 178/83 H 170/90 H Pulse Oximetry 95 100 98 08/26/18 10:11 Temperature Pulse Rate Respiratory Rate Blood Pressure Pulse Oximetry 95 Intake & Output 08/25/18 08/26/18 08/26/18 18:59 06:59 18:59 Intake Total 1883.5 / 1883.5 1028.5 / 1028.5 1100 / 1100 Output Total 650 / 650 850 / 850 Balance 1233.5 / 1233.5 178.5 / 178.5 1100 / 1100 Weight 51.8 kg Intake: IV 1457.5 / 1457.5 707.5 / 707.5 1100 / 1100 Azithromycin Inj 500 MG In NS 250 / 250 Inj 250 ML @ 250 mls/hr IV.SIG Q24H JADA Rx#:[id number] Zosyn 4.5 GM Premix 4.5 gm In 200 / 200 200 / 200 100 / 100 100 ml @ 200 mls/hr IV.SIG Q6H JADA Rx#:[id number] NS Inj 1,000 ML @ 75 mls/hr IV. 1000 / 1000 1000 / 1000 SIG .[id number] JADA Rx#:[id number] Vancomycin Inj 750 MG In NS Inj 257.5 / 257.5 257.5 / 257.5 250 ML @ 250 mls/hr IV.SIG Q12H JADA Rx#:[id number] Tube Feeding 366 / 366 271 / 271 Tube Irrigant 50 / 50 Water Bolus Amount 60 / 60 Output: Urine Amount (Catheter) 650 / 650 850 / 850 Condom 650 / 650 850 / 850 Other: # Incontinent Voids 1 Date of Last Bowel Movement 08/23/18 08/23/18 08/23/18 Narrative: awake and alert aphasic interactive anicteric neck supple lungs- no rales regular rhythm abdomen- PEG in place condom cath in place left hemiplegia - Urinary Catheter Management Indwelling Urethral Catheter Cath placed during this visit: yes, but has since been removed by the nurse Reason for continuing: Continue criteria not met Removal date: 08/18/18 Removal time: 09:45 Condom Cath placed during this visit: yes, but has since been removed by the nurse Reason for continuing: Not indwelling catheter Insertion date: 08/24/18 Insertion time: 11:28 Removal date: 08/23/18 Removal time: 12:00 Straight Cath placed during this visit: yes Reason for continuing: Not indwelling catheter Insertion date: 08/24/18 Insertion time: 02:52 Results - Labs CBC & Chem 7: 08/26/18 05:03 08/26/18 05:03 Laboratory Results - last 24 hr 08/25/18 08/25/18 08/26/18 18:03 18:05 00:16 WBC RBC Hgb Hct MCV MCH MCHC RDW Plt Count MPV Neut % (Auto) Lymph % (Auto) [place] % (Auto) Eos % (Auto) Baso % (Auto) Neut # (Auto) Lymph # (Auto) [place] # (Auto) Eos # (Auto) Baso # (Auto) WBC Differential Differential Comment Sodium Potassium Chloride Carbon Dioxide Anion Gap BUN Creatinine Estimated GFR POC Glucose 316 H 270 H 205 H Random Glucose Calcium 08/26/18 08/26/18 08/26/18 05:03 05:03 13:15 WBC 16.4 H RBC 3.22 L Hgb 9.1 L Hct 27.7 L MCV 86.0 MCH 28.4 MCHC 33.1 RDW 17.6 H Plt Count 441 MPV 8.5 Neut % (Auto) 85.7 H Lymph % (Auto) 6.0 L [place] % (Auto) 6.6 Eos % (Auto) 0.7 Baso % (Auto) 1.0 Neut # (Auto) 14.0 H Lymph # (Auto) 1.0 [place] # (Auto) 1.1 H Eos # (Auto) 0.1 Baso # (Auto) 0.2 WBC Differential . Differential Comment Auto diff final Sodium 149 H Potassium 3.4 L Chloride 111 H Carbon Dioxide 28.9 Anion Gap 9 BUN 15 Creatinine 0.75 Estimated GFR Greater than 89 POC Glucose 227 H Random Glucose 221 H Calcium 8.5 - Imaging Impressions Chest X-Ray 08/26/18 05:00 CONCLUSION: Worsening parenchymal consolidation and small effusions bilaterally as above. Assessment and Plan - Plan 62yM s/p CVA with hypoxic respiratory failure. clinically improving. still very high risk for reintubation or decline. aggressive pulmonary toilet and PT. will need to work towards getting back to inpatient rehab. Severe Sepsis Healthcare associated aspiration pneumonia -d/c mivf -Broad-spectrum antibiotic -Blood cultures -CXR new infiltrate -Likely pneumonia/aspiration -Serial lactic acid determination -Cultures negative to date. -Repeat urine culture with deep suctioning -> gram-positive cocci, numerous white blood cells. - on zosyn - DC IV zithromax Acute Hypoxemic respiratory failure- resolving -Patient required intubation and the institution of mechanical ventilation 08/21 - extubated 08/24 -Some improvement in aeration of the right lower lobe. Worsening density involving the left lower lobe -He does not cough or participate in pulmonary clearance exercises due to his stroke. -high risk for reintubation and need for tracheostomy. - PT consult Healthcare associated aspiration pneumonia - DC zuithromax , Vancomycin - continue on zosyn- - consider swithcing to po tomorrow- prob- clindaycin or augmentin -DuoNeb's as needed -CAT scan demonstrates lobar pneumonia right lower lobe, improved after bronchoscopy -New dense left-sided infiltrate Lactic acidosis- resolved -Due to above -Monitor trend -IV fluid hydration -Resolved Hyperlipemia Hypertension- elevated BP readings -Atorvastatin - continue amlodipine - restart Domenica- Lisnorpul at 5 mg bid History of CVA with hemiplegia -Aspirin -Atorvastatin -Cyclobenzaprine Anemia -Ferrous Sulfate -Monitor H&H -Transfuse as needed to keep hemoglobin above 7 -Transfuse 2 units packed red blood cells for hemoglobin 6 Diabetes mellitus -Insulin Detemir -Insulin sliding scale DVT GI prophylaxis -Teds SCDs -Subcu heparin -Lansoprazole
--- NOTE | 2018-08-26 17:05 | P.PNPAL ---
Reason for Visit Reason for visit: a. To assist with evaluation and management of symptoms including:altered mental status, dyspnea, dysphasia. b. To assist medical decision maker(s) with: better understanding of current medical conditions; weighing benefits/burdens of medical treatment options; making medical treatment decisions. Subjective Subjective/Interval History: Patient seen for medically necessary follow-up to evaluate symptom management of altered mental status, dyspnea and dysphasia. This is an alert -Spanish male, lying in bed in no acute distress. He is on nasal cannula oxygen at 4 L/min. He complains of mild dyspnea, constant, associated with intermittent rhonchorous cough with sputum production and exercise limitation. He is oriented to person and place today. His thoughts wander and some statements are not clear. He cannot tell me why he is in the hospital and when asked where he lived before he looks off in space and does not answer. This may be a residual of the CVA or a residual of serious illness, however speech therapy evaluation noted that patient scored 9 out of 30 on MOCA testing during prior evaluations and current evaluation revealed the same score. Patient appears to be at his baseline. He continues to fail his swallow evaluation due to severe dysphasia. He has a PEG tube with tube feeding infusing. He presented with aspiration pneumonia from [place], despite having a documented n.p.o. status. It is unclear whether he aspirated with prior p.o. trials or had obtained food from another source. Speech remains slightly slurred and minimal volume p.o. trials continued to demonstrate dysphasia. Patient intermittently demonstrating reflexive cough following secretions swallows were noted as well as limited bolus control, impaired A/P bolus propulsion and impaired oral bolus clearance. Pharyngeal phase characterized by impaired coordination of reflexive swallow onset with suspected aspiration event prior to and during reflexive swallows triggered. Family/Friend Interactions: No family at bedside today. Advance Directives Health Care Surrogate Name and Number: Health care proxy deicsion maker, mother : Ramseyweader Page: [phone] Objective Vital Signs: Vital Signs 08/25/18 19:00 08/25/18 19:45 08/25/18 20:00 Temperature 99.1 F Pulse Rate 84 Respiratory Rate 22 Blood Pressure 149/95 H Pulse Oximetry 94 L 94 L 94 L 08/26/18 00:00 08/26/18 04:00 08/26/18 07:00 Temperature 99.5 F 98.8 F Pulse Rate 80 78 Respiratory Rate 18 24 Blood Pressure 173/83 H 178/83 H Pulse Oximetry 93 L 95 100 08/26/18 08:00 08/26/18 10:11 08/26/18 12:00 Temperature 98.5 F 98.9 F Pulse Rate 82 69 Respiratory Rate 24 22 Blood Pressure 170/90 H 159/76 H Pulse Oximetry 98 95 Intake & Output 08/25/18 08/26/18 08/26/18 18:59 06:59 18:59 Intake Total 1883.5 / 1883.5 1028.5 / 1028.5 1100 / 1100 Output Total 650 / 650 850 / 850 Balance 1233.5 / 1233.5 178.5 / 178.5 1100 / 1100 Weight 114 lb 3.191 oz Intake: IV 1457.5 / 1457.5 707.5 / 707.5 1100 / 1100 Azithromycin Inj 500 MG In NS 250 / 250 Inj 250 ML @ 250 mls/hr IV.SIG Q24H [facility]ADA Rx#:[id number] Zosyn 4.5 GM Premix 4.5 gm In 200 / 200 200 / 200 100 / 100 100 ml @ 200 mls/hr IV.SIG Q6H [facility] Rx#:[id number] NS Inj 1,000 ML @ 75 mls/hr IV. 1000 / 1000 1000 / 1000 SIG .[id number] [facility] Rx#:[id number] Vancomycin Inj 750 MG In NS Inj 257.5 / 257.5 257.5 / 257.5 250 ML @ 250 mls/hr IV.SIG Q12H [facility] Rx#:[id number] Tube Feeding 366 / 366 271 / 271 Tube Irrigant 50 / 50 Water Bolus Amount 60 / 60 Output: Urine Amount (Catheter) 650 / 650 850 / 850 Condom 650 / 650 850 / 850 Other: # Incontinent Voids 1 Date of Last Bowel Movement 08/23/18 08/23/18 08/23/18 Physical Exam: CONSTITUTIONAL/GENERAL: This is an chronically ill appearing male patient, in no apparent distress. TUBES/LINES/DRAINS: high flow oxygen, PIV, PEG tube, catheter. CARDIOVASCULAR: Regular rate and rhythm without murmurs. Peripheral pulses symmetric. RESPIRATORY/CHEST: Right-sided rhonchi, diminished at bases on 4 L nasal cannula. GASTROINTESTINAL: Abdomen soft, nondistended. No guarding. PEG tube. Bowel sounds present. GENITOURINARY: Without palpable bladder distension. catheter in place. MUSCULOSKELETAL: Extremities without clubbing, cyanosis, or edema. No mottling or clubbing. NEUROLOGICAL: Awake, alert, oriented to self and place. Left hemiplegia with minimal response in left leg, right arm flaccid. Chronic dysphasia. PSYCHIATRIC: Calm, cooperative. Diagnostic Tests Laboratory: Laboratory Results - last 72 hr 08/23/18 08/23/18 08/24/18 18:43 23:57 06:30 WBC RBC Hgb Hct MCV MCH MCHC RDW Plt Count MPV Neut % (Auto) Lymph % (Auto) [place] % (Auto) Eos % (Auto) Baso % (Auto) Neut # (Auto) Lymph # (Auto) [place] # (Auto) Eos # (Auto) Baso # (Auto) WBC Differential Differential Comment Sodium Potassium Chloride Carbon Dioxide Anion Gap BUN Creatinine Estimated GFR POC Glucose 165 H 165 H 120 H Random Glucose Calcium Phosphorus Magnesium Vancomycin Trough 08/24/18 08/24/18 08/24/18 07:50 10:10 11:40 WBC 16.4 H RBC 3.44 L Hgb 9.8 L Hct 29.7 L MCV 86.4 MCH 28.4 MCHC 32.9 RDW 17.9 H Plt Count 409 MPV 8.3 Neut % (Auto) 74.2 H Lymph % (Auto) 9.0 [place] % (Auto) 8.6 H Eos % (Auto) 7.6 H Baso % (Auto) 0.6 Neut # (Auto) 12.2 H Lymph # (Auto) 1.5 [place] # (Auto) 1.4 H Eos # (Auto) 1.2 H Baso # (Auto) 0.1 WBC Differential . Differential Comment Auto diff final Sodium 146 H Potassium 4.1 D Chloride 114 H Carbon Dioxide 23.8 Anion Gap 8 BUN 15 Creatinine 0.77 Estimated GFR Greater than 89 POC Glucose 184 H Random Glucose 125 H Calcium 8.0 L Phosphorus Magnesium Vancomycin Trough 08/24/18 08/24/18 08/25/18 18:09 23:56 05:11 WBC 13.5 H RBC 3.31 L Hgb 9.0 L Hct 28.7 L MCV 86.8 MCH 27.3 MCHC 31.5 L RDW 17.9 H Plt Count 428 MPV 8.4 Neut % (Auto) 84.5 H Lymph % (Auto) 6.9 L [place] % (Auto) 6.5 Eos % (Auto) 1.3 Baso % (Auto) 0.8 Neut # (Auto) 11.4 H Lymph # (Auto) 0.9 L [place] # (Auto) 0.9 Eos # (Auto) 0.2 Baso # (Auto) 0.1 WBC Differential . Differential Comment Auto diff final Sodium Potassium Chloride Carbon Dioxide Anion Gap BUN Creatinine Estimated GFR POC Glucose 109 141 H Random Glucose Calcium Phosphorus Magnesium Vancomycin Trough 08/25/18 08/25/18 08/25/18 06:00 11:25 11:25 WBC RBC Hgb Hct MCV MCH MCHC RDW Plt Count MPV Neut % (Auto) Lymph % (Auto) [place] % (Auto) Eos % (Auto) Baso % (Auto) Neut # (Auto) Lymph # (Auto) [place] # (Auto) Eos # (Auto) Baso # (Auto) WBC Differential Differential Comment Sodium 146 H Potassium 3.7 Chloride 112 H Carbon Dioxide 23.7 Anion Gap 10 BUN 14 Creatinine 0.72 Estimated GFR Greater than 89 POC Glucose 205 H Random Glucose 203 H Calcium 8.3 L Phosphorus 2.7 Magnesium 2.0 Vancomycin Trough 14.0 H 08/25/18 08/25/18 08/25/18 11:52 18:03 18:05 WBC RBC Hgb Hct MCV MCH MCHC RDW Plt Count MPV Neut % (Auto) Lymph % (Auto) [place] % (Auto) Eos % (Auto) Baso % (Auto) Neut # (Auto) Lymph # (Auto) [place] # (Auto) Eos # (Auto) Baso # (Auto) WBC Differential Differential Comment Sodium Potassium Chloride Carbon Dioxide Anion Gap BUN Creatinine Estimated GFR POC Glucose 222 H 316 H 270 H Random Glucose Calcium Phosphorus Magnesium Vancomycin Trough 08/26/18 08/26/18 08/26/18 00:16 05:03 05:03 WBC 16.4 H RBC 3.22 L Hgb 9.1 L Hct 27.7 L MCV 86.0 MCH 28.4 MCHC 33.1 RDW 17.6 H Plt Count 441 MPV 8.5 Neut % (Auto) 85.7 H Lymph % (Auto) 6.0 L [place] % (Auto) 6.6 Eos % (Auto) 0.7 Baso % (Auto) 1.0 Neut # (Auto) 14.0 H Lymph # (Auto) 1.0 [place] # (Auto) 1.1 H Eos # (Auto) 0.1 Baso # (Auto) 0.2 WBC Differential . Differential Comment Auto diff final Sodium 149 H Potassium 3.4 L Chloride 111 H Carbon Dioxide 28.9 Anion Gap 9 BUN 15 Creatinine 0.75 Estimated GFR Greater than 89 POC Glucose 205 H Random Glucose 221 H Calcium 8.5 Phosphorus Magnesium Vancomycin Trough 08/26/18 13:15 WBC RBC Hgb Hct MCV MCH MCHC RDW Plt Count MPV Neut % (Auto) Lymph % (Auto) [place] % (Auto) Eos % (Auto) Baso % (Auto) Neut # (Auto) Lymph # (Auto) [place] # (Auto) Eos # (Auto) Baso # (Auto) WBC Differential Differential Comment Sodium Potassium Chloride Carbon Dioxide Anion Gap BUN Creatinine Estimated GFR POC Glucose 227 H Random Glucose Calcium Phosphorus Magnesium Vancomycin Trough Result Diagrams: 08/26/18 05:03 08/26/18 05:03 Microbiology: Microbiology 08/22/18 10:40 Gram Stain - Final Sputum - Endotracheal Sputum Culture - Final Light growth normal respiratory carlos a Assessment and Plan - Disease Oriented Problem List (1) Aspiration pneumonia (2) History of lacunar cerebrovascular accident (CVA) (3) HTN (hypertension) (4) Diabetes (5) Sepsis (6) Urinary tract infection Pertinent Non-Medical Issues: Psychosocial: Single. No children. Has 2 brothers and 1 sister. Supported by his mother and aunt also. Spiritual: Adventism marty, sponge fisherman visits requested. The last conversation his mother had with him, he was requesting that she bring him a Bible. Legal: Patient is not capacitated to make his own healthcare decisions, uncertain if he will regain capacity. Single. No children. According to [place] statutes, healthcare proxy decision making falls to his mother. Ethical issues impacting care: No known concerns at this time. Important Contacts: * Gilmer Patricia, mother: [phone] * Meri Ricardo, aunt: [phone] Prognosis: Mr. campos is an unfortunate 62-year-old male with prior stroke, admitted with possible aspiration pneumonia, UTI, sepsis. While it appears he may survive this hospitalization he remains high risk for repeat infections, complications and further decline. May be hospice appropriate if goals are comfort oriented in the future. Code Status: Full Code Plan: * Patient is not capacitated to make his own healthcare decisions, uncertain if he will regain capacity. Single. No children. According to [place] statutes, healthcare proxy decision making falls to his mother, Edweader Page. * FULL CODE - She does not remember signing the [place] DNR in the past. * GOALS:Spoke with mother/ HCP, Edweader Page to provide medical update. She desires continued aggressive care including FULL CODE. She welcomes continued conversations regarding goals of care should his condition/ prognosis change. * SYMPTOMS: Encephalopathy: Secondary to prior stroke, likely related to infection, hospitalization. Improving. Mother also reports that patient often does not speak unless he wants to. Weakness: Secondary to previous stroke residual left hemiplegia. Dyspnea: On high flow oxygen. Dysphasia: Chronic secondary to CVA. * Palliative care will continue to follow throughout hospital course to assist with symptom management and further clarification of medical treatment goals. Attestation Attestation: To help prompt me to consider important information that might be impacting today's encounter and assessment, information from prior notes written by myself or my colleagues may have been "brought forward" into today's note. My signature on this note, however, is an attestation that I personally performed the exam, history, and/or decision-making noted today, and, unless otherwise indicated, the interactions with patient, family, and staff as well as the review of records all occurred today. I also attest that the listed assessment and stated plan reflect my best clinical judgment today based on the combination of historical information, prior notes, and today's exam/ interactions. When time spent is documented, it refers only to time spent today by the signer, or if indicated, combined time spent today by collaborating physician/nurse practitioner. .
[2018-08-26] MEDS: Lisinopril 5 MG Tablet G-TUBE SCH (20:39)
[2018-08-27] MEDS: Oral Hygiene Kit OROPHARYNG SCH ×4 (02:39→17:21)
[2018-08-27] MEDS: Piperacil/Tazo 4.5 GM Premix 4.5 GM/100 ML BAG IV.SIG SCH ×4 (02:42→20:43)
[2018-08-27] MEDS ORDERED: Pharmacy Ordered Lab Info OTHER ONE (03:45)
[2018-08-27] MEDS: Heparin - SQ 10,000 UNITS/ML Vial SQ SCH ×3 (05:38→22:52)
[2018-08-27 06:17] LABS: Hematocrit 29.8 % (39.0-51.0); Hemoglobin 9.6 gm/dL (13.0-17.0); Mean Corpuscular HGB Conc 32.3 % (32.0-36.0); Mean Corpuscular Hemoglobin 28.1 pg (27.0-34.0); Mean Corpuscular Volume 87.2 fL (80.0-100.0); Red Blood Count 3.42 mil/mm3 (4.50-5.90); White Blood Count 20.7 th/mm3 (4.0-11.0)
[2018-08-27 06:18] LABS: Baso # (Auto) 0.1 th/mm3 (0.0-0.2); Baso % (Auto) 0.4 % (0.0-2.0); Eos # (Auto) 0.1 th/mm3 (0.0-0.4); Eos % (Auto) 0.7 % (0.0-4.0); Lymph # (Auto) 1.3 th/mm3 (1.0-4.8); Lymph % (Auto) 6.2 % (9.0-44.0); Mono # (Auto) 1.4 th/mm3 (0.0-0.9); Mono % (Auto) 6.6 % (0.0-8.0); Neut # (Auto) 17.8 th/mm3 (1.8-7.7); Neut % (Auto) 86.1 % (16.0-70.0); Platelet Count 440 th/mm3 (150-450); Red Cell Distribution Width 17.2 % (11.6-17.2)
[2018-08-27] MEDS: Ferrrous Sulfate 300 MG/5 ML UDC G-TUBE SCH (08:50)
[2018-08-27] MEDS: Metoprolol Tartrate 25 MG Tablet PO SCH ×2 (08:50→20:45)
[2018-08-27] MEDS: Aspirin 325 MG Tablet G-TUBE SCH (08:50)
[2018-08-27] MEDS: Senna/Docusate Sodium 8.6/50 MG Tablet PO SCH ×2 (08:50→20:44)
[2018-08-27] MEDS: Lisinopril 5 MG Tablet G-TUBE SCH ×2 (08:50→20:45)
[2018-08-27] MEDS: amLODIPine 10 MG Tablet PO SCH (08:50)
--- NOTE | 2018-08-27 09:45 | P.PN ---
Subjective Interval history: aphasic, made eye contact and ff commands tolerting tube feedings does not appears in acute distress but per staff- 02 was increased to 6 L overnight clear saliva on sucitoning Physical Exam Vital signs: Vital Signs 08/26/18 10:11 08/26/18 12:00 08/26/18 16:00 Temperature 98.9 F 98.5 F Pulse Rate 69 83 Respiratory Rate 22 27 H Blood Pressure 159/76 H 156/75 H Pulse Oximetry 95 93 L 08/26/18 19:11 08/26/18 20:00 08/27/18 00:00 Temperature 98.2 F 97.9 F Pulse Rate 85 83 81 Respiratory Rate 20 20 15 Blood Pressure 159/82 H 152/67 H Pulse Oximetry 96 93 L 96 08/27/18 04:00 Temperature 98.1 F Pulse Rate 84 Respiratory Rate 18 Blood Pressure 149/65 H Pulse Oximetry 98 Intake & Output 08/26/18 08/27/18 08/27/18 18:59 06:59 18:59 Intake Total 1867 / 1867 1529 / 1529 Output Total 600 / 600 1900 / 1900 Balance 1267 / 1267 -371 / -371 Weight 51 kg Intake: IV 1200 / 1200 200 / 200 Zosyn 4.5 GM Premix 4.5 gm In 200 / 200 200 / 200 100 ml @ 200 mls/hr IV.SIG Q6H [facility] Rx#:[id number] NS Inj 1,000 ML @ 75 mls/hr IV. 1000 / 1000 SIG .[id number] [facility] Rx#:[id number] Tube Feeding 547 / 547 1099 / 1099 Tube Irrigant 110 / 110 Water Bolus Amount 120 / 120 120 / 120 Output: Urine 1275 / 1275 Urine/Stool Mix 0 / 0 Urine Amount (Catheter) 600 / 600 600 / 600 Condom 600 / 600 600 / 600 Gastric Drainage 25 / 25 Left Upper Quadrant Gastrostomy 25 / 25 Tube (PEG) Other: # Incontinent Voids 1 Date of Last Bowel Movement 08/23/18 08/23/18 # Bowel Movements 0 # Incontinent Bowel Movements 0 # Emeses 1 Narrative: awake and alert aphasic interactive anicteric neck supple lungs- no rales, decreased breth sounds, right regular rhythm abdomen- PEG in place condom cath in place left hemiplegia - Urinary Catheter Management Indwelling Urethral Catheter Cath placed during this visit: yes, but has since been removed by the nurse Reason for continuing: Continue criteria not met Removal date: 08/18/18 Removal time: 09:45 Condom Cath placed during this visit: yes, but has since been removed by the nurse Reason for continuing: Not indwelling catheter Insertion date: 08/24/18 Insertion time: 11:28 Removal date: 08/23/18 Removal time: 12:00 Straight Cath placed during this visit: yes Reason for continuing: Not indwelling catheter Insertion date: 08/24/18 Insertion time: 02:52 Results - Labs CBC & Chem 7: 08/27/18 05:35 08/26/18 20:50 Laboratory Results - last 24 hr 08/26/18 08/26/18 08/26/18 13:15 17:34 20:50 WBC RBC Hgb Hct MCV MCH MCHC RDW Plt Count MPV Neut % (Auto) Lymph % (Auto) [place] % (Auto) Eos % (Auto) Baso % (Auto) Neut # (Auto) Lymph # (Auto) [place] # (Auto) Eos # (Auto) Baso # (Auto) WBC Differential Differential Comment Potassium 3.4 L POC Glucose 227 H 178 H 08/26/18 08/27/18 08/27/18 23:38 05:35 05:45 WBC 20.7 H RBC 3.42 L Hgb 9.6 L Hct 29.8 L MCV 87.2 MCH 28.1 MCHC 32.3 RDW 17.2 Plt Count 440 MPV 8.0 Neut % (Auto) 86.1 H Lymph % (Auto) 6.2 L [place] % (Auto) 6.6 Eos % (Auto) 0.7 Baso % (Auto) 0.4 Neut # (Auto) 17.8 H Lymph # (Auto) 1.3 [place] # (Auto) 1.4 H Eos # (Auto) 0.1 Baso # (Auto) 0.1 WBC Differential . Differential Comment Auto diff final Potassium POC Glucose 265 H 116 H Assessment and Plan - Plan 62yM s/p CVA with hypoxic respiratory failure. clinically improving. still very high risk for reintubation or decline. aggressive pulmonary toilet and PT. will need to work towards getting back to inpatient rehab. Severe Sepsis Healthcare associated aspiration pneumonia Leukocytosis- WBC up to 20,000 -Xr with increase density on thei right -Broad-spectrum antibiotic -Blood cultures -Likely pneumonia/aspiration -Serial lactic acid determination -Cultures negative to date. -Repeat urine culture with deep suctioning -> gram-positive cocci, numerous white blood cells. - on zosyn/Vancomycin - DC IV zithromax Acute Hypoxemic respiratory failure-Increase o2 requiremnt overnight -Patient required intubation and the institution of mechanical ventilation 08/21 - extubated 08/24 -Some improvement in aeration of the right lower lobe. Worsening density involving the left lower lobe -He does not cough or participate in pulmonary clearance exercises due to his stroke. -high risk for reintubation and need for tracheostomy. - PT consult - pulmonary consult Healthcare associated aspiration pneumonia - DC zuithromax 08/26 - continue on zosyn/Vanco- for now with XRay finding -DuoNeb's as needed -CAT scan demonstrates lobar pneumonia right lower lobe, improved after bronchoscopy - CXR reviewed from 08/26- increase in density right > right - consolidation vs effusion - get BMP, BNP - Pulmonary consult Lactic acidosis- resolved -Due to above -Monitor trend -Resolved Hyperlipemia Hypertension- elevated BP readings -Atorvastatin - continue amlodipine - restarted Domenica- Lisnorpul at 5 mg bid 08/26 History of CVA with hemiplegia -Aspirin -Atorvastatin -Cyclobenzaprine Anemia -Ferrous Sulfate -Monitor H&H -Transfuse as needed to keep hemoglobin above 7 -Transfuse 2 units packed red blood cells for hemoglobin 6 Diabetes mellitus -Insulin Detemir -Insulin sliding scale DVT GI prophylaxis -Teds SCDs -Subcu heparin -Lansoprazole DC planning- may be an LTAC candidate
[2018-08-27] MEDS: Insulin NovoLOG Aspart Correctional Sugar Inj SQ SCH ×3 (12:11→17:21)
[2018-08-27] MEDS: Chlorhexidine 0.12% Oral Kit 15 ML UDC OROPHARYNG SCH ×2 (12:11→22:52)
[2018-08-27 12:53] LABS: Anion Gap 7 meq/L (5-15); Blood Urea Nitrogen 22 mg/dL (7-18); Calcium 8.7 mg/dL (8.5-10.1); Carbon Dioxide 27.4 meq/L (21.0-32.0); Chloride 115 meq/L (98-107); Glomerular Filtration Rate Greater Than 89 mL/min (>89); Glucose,Random 292 mg/dL (74-106); Potassium 3.9 meq/L (3.5-5.1); Sodium 149 meq/L (136-145)
--- NOTE | 2018-08-27 18:08 | MB ---
cc: Ronaldo Agosto MD DATE: 08/27/2018 REQUESTING PHYSICIAN: Rosario Shetty MD REASON FOR CONSULTATION: Pulmonary. HISTORY OF PRESENT ILLNESS: Mr. Gomez is a 62-year-old white male with a history of previous stroke and left-sided hemiplegia. He has indwelling Yadav catheter. The patient lives in a [facility]ci. He was noted to have altered mental status. He was brought to the hospital. He was given IV fluid with some improvement in status. He developed respiratory failure and has pneumonia. Currently, he is weaned down to 6 liters nasal cannula. He opens eyes, tries to make eye contact. The latest chest x-ray shows worsening parenchymal infiltrate with small pleural effusion. PAST MEDICAL HISTORY: Significant for history of left hemiplegia, aspiration pneumonia. MEDICATIONS: He is currently takin. Tylenol. 2. Norvasc 10 mg a day. 3. Aspirin 325 mg. 4. Lipitor 10 mg a day. 5. Flexeril 10 mg 3 times a day. 6. Heparin 5000 q.12 hours. 7. Insulin coverage. 8. Prevacid 30 mg a day. 9. Zosyn. 10. IV morphine for pain as needed. 11. Temazepam 15 mg as needed. ALLERGIES: NO KNOWN DRUG ALLERGIES. SOCIAL HISTORY: Lives in a fci. FAMILY HISTORY: Non contributory. PHYSICAL EXAMINATION: GENERAL: Moderately built, well nourished male, mildly short of breath, not in any acute distress. VITAL SIGNS: His blood pressure 172/76, heart rate 70s, respirations 17, temperature 98.1. HEENT: Pupils are equal and reactive to light. Oral mucosa normal. NECK: Supple. JVD not raised. CHEST: Bilaterally scattered rhonchi. HEART: S1, S2 normal. ABDOMEN: Soft, nondistended. He has PEG tube in place. EXTREMITIES: No edema. IMPRESSION: 1. Respiratory insufficiency. 2. Aspiration pneumonia. 3. Cerebrovascular accident with left hemiplegia. 4. Hypertension. PLAN: We will continue antibiotic Zosyn, aerosol albuterol and Atrovent, supplement his oxygen and keep saturations greater than 92% and subcutaneous heparin for DVT prophylaxis and Prevacid for GI prophylaxis. Further treatment will depend on the course in the hospital. Thank you, Dr. Shetty for this consult. MD ELIECER Villatoro/zayra/maximus , 04:00 PM , 04:09 PM EDDIE
[2018-08-28] MEDS: Insulin NovoLOG Aspart Correctional Sugar Inj SQ SCH ×3 (00:51→14:25)
[2018-08-28] MEDS: Oral Hygiene Kit OROPHARYNG SCH ×3 (00:51→14:16)
[2018-08-28] MEDS: Piperacil/Tazo 4.5 GM Premix 4.5 GM/100 ML BAG IV.SIG SCH ×3 (03:36→14:16)
[2018-08-28] MEDS: Heparin - SQ 10,000 UNITS/ML Vial SQ SCH ×2 (05:24→14:16)
[2018-08-28] MEDS: Ferrrous Sulfate 300 MG/5 ML UDC G-TUBE SCH (08:25)
[2018-08-28] MEDS: Aspirin 325 MG Tablet G-TUBE SCH (08:26)
[2018-08-28] MEDS: Lisinopril 5 MG Tablet G-TUBE SCH (08:26)
[2018-08-28] MEDS: amLODIPine 10 MG Tablet PO SCH (08:26)
[2018-08-28] MEDS: Senna/Docusate Sodium 8.6/50 MG Tablet PO SCH (08:26)
[2018-08-28] MEDS: Metoprolol Tartrate 25 MG Tablet PO SCH (08:26)
[2018-08-28] MEDS: Chlorhexidine 0.12% Oral Kit 15 ML UDC OROPHARYNG SCH (08:26)
[2018-08-28 13:01] VITALS: O2SAT 94
--- NOTE | 2018-08-28 13:39 | P.PN ---
Subjective Interval history: awake, eyes open, tolerating tube feedings, non verbal informed by staff- accepted by [facility] Physical Exam Vital signs: Vital Signs 08/27/18 14:00 08/27/18 14:01 08/27/18 15:00 Temperature Pulse Rate 68 72 68 Respiratory Rate 16 22 19 Blood Pressure 160/77 H Pulse Oximetry 100 100 100 08/27/18 15:01 08/27/18 16:00 08/27/18 16:01 Temperature 97.9 F Pulse Rate 68 72 72 Respiratory Rate 19 18 18 Blood Pressure 158/72 H 149/72 H 149/72 H Pulse Oximetry 100 98 97 08/27/18 17:00 08/27/18 17:01 08/27/18 18:00 Temperature Pulse Rate 63 63 67 Respiratory Rate 18 17 34 H Blood Pressure 163/73 H Pulse Oximetry 100 100 100 08/27/18 18:01 08/27/18 19:00 08/27/18 19:01 Temperature Pulse Rate 67 68 68 Respiratory Rate 28 H 17 18 Blood Pressure 160/71 H 145/67 H Pulse Oximetry 100 100 100 08/27/18 19:45 08/27/18 20:00 08/27/18 20:01 Temperature 99.0 F Pulse Rate 70 82 79 Respiratory Rate 22 23 21 Blood Pressure 153/76 H Pulse Oximetry 98 98 08/27/18 21:00 08/27/18 21:01 08/27/18 22:00 Temperature Pulse Rate 81 81 70 Respiratory Rate 20 20 17 Blood Pressure 150/68 H Pulse Oximetry 94 L 94 L 94 L 08/27/18 22:01 08/27/18 23:00 08/27/18 23:01 Temperature Pulse Rate 71 72 72 Respiratory Rate 18 30 H 24 Blood Pressure 156/75 H 159/68 H Pulse Oximetry 94 L 91 L 91 L 08/28/18 00:00 08/28/18 04:00 08/28/18 08:00 Temperature 99.2 F 98.5 F 98.9 F Pulse Rate 76 71 72 Respiratory Rate 22 19 32 H Blood Pressure 157/76 H 151/60 H 155/71 H Pulse Oximetry 94 L 94 L 92 L 08/28/18 13:01 Temperature Pulse Rate Respiratory Rate Blood Pressure Pulse Oximetry 94 L Intake & Output 11/01/18 11/02/18 11/02/18 18:59 06:59 18:59 Intake Total 772 / 772 893 / 893 Output Total 1150 / 1150 600 / 600 Balance -378 / -378 293 / 293 Weight 51.4 kg Intake: IV 200 / 200 200 / 200 Zosyn 4.5 GM Premix 4.5 gm In 200 / 200 200 / 200 100 ml @ 200 mls/hr IV.SIG Q6H JADA Rx#:[id number] Tube Feeding 512 / 512 603 / 603 Tube Irrigant 60 / 60 Water Bolus Amount 90 / 90 Output: Urine 1150 / 1150 Stool 250 / 250 Urine Amount (Catheter) 350 / 350 Condom 350 / 350 Other: Date of Last Bowel Movement 08/27/18 08/28/18 08/28/18 # Incontinent Bowel Movements 2 Narrative: awake, opened eyes to call of name, non verbal aphasic anicteric neck supple lungs- no rales, decreased breath sounds regular rhythm abdomen- PEG in place condom cath in place left hemiplegia - Urinary Catheter Management Indwelling Urethral Catheter Cath placed during this visit: yes, but has since been removed by the nurse Reason for continuing: Continue criteria not met Removal date: 08/18/18 Removal time: 09:45 Condom Cath placed during this visit: yes, but has since been removed by the nurse Reason for continuing: Not indwelling catheter Insertion date: 08/27/18 Insertion time: 12:00 Removal date: 08/23/18 Removal time: 12:00 Straight Cath placed during this visit: yes Reason for continuing: Not indwelling catheter Insertion date: 08/24/18 Insertion time: 02:52 Results - Labs CBC & Chem 7: 08/27/18 05:35 08/27/18 12:04 Laboratory Results - last 24 hr 08/27/18 08/28/18 08/28/18 16:43 00:25 06:44 POC Glucose 236 H 291 H 284 H Assessment and Plan - Plan 62yM s/p CVA with hypoxic respiratory failure. clinically improving. still very high risk for reintubation or decline. aggressive pulmonary toilet and PT. will need to work towards getting back to inpatient rehab. Severe Sepsis Healthcare associated aspiration pneumonia Leukocytosis- WBC up to 20,000 -Xr with increase density on thei right -Broad-spectrum antibiotic -Blood cultures -Likely pneumonia/aspiration -Serial lactic acid determination -Cultures negative to date. -Repeat urine culture with deep suctioning -> gram-positive cocci, numerous white blood cells. - on zosyn/Vancomycin Acute Hypoxemic respiratory failure-Increase o2 requiremnt overnight -Patient required intubation and the institution of mechanical ventilation 08/21 - extubated 08/24 -Some improvement in aeration of the right lower lobe. Worsening density involving the left lower lobe -He does not cough or participate in pulmonary clearance exercises due to his stroke. -high risk for reintubation and need for tracheostomy. - PT consult - pulmonary ff- Dr. guillen Healthcare associated aspiration pneumonia - DC zuithromax 08/26 - continue on zosyn started 08/24 -DuoNeb's as needed -CAT scan demonstrates lobar pneumonia right lower lobe, improved after bronchoscopy - CXR reviewed from 08/26- increase in density right > right - consolidation vs effusion - Pulmonary - Dr. guillen ff Lactic acidosis- resolved -Due to above -Monitor trend -Resolved Hyperlipemia Hypertension- elevated BP readings -Atorvastatin - continue amlodipine - restarted Domenica- Lisnorpul at 5 mg bid 08/26 History of CVA with hemiplegia -Aspirin -Atorvastatin -Cyclobenzaprine Anemia -Ferrous Sulfate -Monitor H&H -Transfuse as needed to keep hemoglobin above 7 -Transfuse 2 units packed red blood cells for hemoglobin 6 Diabetes mellitus -Insulin Detemir- start at 5 units SQ bid -Insulin sliding scale Continue TF- glucerna 1.5 at 50 cc/hr DVT GI prophylaxis -Teds SCDs -Subcu heparin -Lansoprazole DC planning- may be an LTAC candidate- today if accepted
--- NOTE | 2018-08-28 14:04 | P.DS ---
Date of admission: 08/18/18 01:58 Primary care physician: Jeff Vieira Attending physician on discharge: Rosario Shetty Anticipated date of discharge: 08/28/18 Brief History from admission: 62-year-old male presents from care home for an evaluation of altered mental status. As per the staff patient was altered mental status for past 8 hours and his symptoms progressively worsen. So the called 911. Patient was initially a DNR however his mother in the emergency department at the bedside requested a full code. He has a history of previous stroke and left-sided hemiplegia. 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 As per EMS his GCS was 4 when they arrived and after this started fluid he improved to 10. His blood pressure initially was 80 systolic and prior to getting inside the ER it was 100 systolic. Patient obviously was unable to give any history. Blood sugar was 220. Chest x-ray shows new infiltrate in the right lower lobe suggesting aspiration pneumonia. Patient update on day of discharge: tolerating tube feedings at 50 cc/hr vital signs stable eues open left hemiplegia DS: Summary Hospital Course: 62yM s/p CVA with hypoxic respiratory failure. clinically improving. still very high risk for reintubation or decline. aggressive pulmonary toilet and PT. will need to work towards getting back to inpatient rehab. Severe Sepsis Healthcare associated aspiration pneumonia Leukocytosis- WBC up to 20,000 -Xr with increase density on thei right -Broad-spectrum antibiotic -Blood cultures -Likely pneumonia/aspiration -Serial lactic acid determination -Cultures negative to date. -Repeat urine culture with deep suctioning -> gram-positive cocci, numerous white blood cells. - on zosyn started 08/24 Acute Hypoxemic respiratory failure-Increase o2 requiremnt overnight -Patient required intubation and the institution of mechanical ventilation 08/21 - extubated 08/24 -Some improvement in aeration of the right lower lobe. Worsening density involving the left lower lobe -He does not cough or participate in pulmonary clearance exercises due to his stroke. -high risk for reintubation and need for tracheostomy. - PT consult - pulmonary ff- Dr. guillen Healthcare associated aspiration pneumonia - DC zuithromax 08/26 - continue on zosyn started 08/24 -DuoNeb's as needed -CAT scan demonstrates lobar pneumonia right lower lobe, improved after bronchoscopy - CXR reviewed from 08/26- increase in density right > right - consolidation vs effusion - Pulmonary - Dr. guillen ff Lactic acidosis- resolved -Due to above -Monitor trend -Resolved Hyperlipemia Hypertension- elevated BP readings -Atorvastatin - continue amlodipine - restarted Domenica- Lisnorpul at 5 mg bid 08/26 History of CVA with hemiplegia -Aspirin -Atorvastatin -Cyclobenzaprine Anemia -Ferrous Sulfate -Monitor H&H -Transfuse as needed to keep hemoglobin above 7 -Transfuse 2 units packed red blood cells for hemoglobin 6 Diabetes mellitus -Insulin Detemir- start at 5 units SQ bid -Insulin sliding scale Continue TF- glucerna 1.5 at 50 cc/hr DVT GI prophylaxis -Teds SCDs -Subcu heparin -Lansoprazole DC planning- may be an LTAC candidate- today if accepted - Time Spent with Patient Total time spent providing and/or coordinating discharge services: Greater than 30 minutes - Quality: VTE Deep Vein Thrombosis/Pulmonary Embolism Present on Admission: No Exam Vital signs: Vital Signs 08/27/18 14:00 08/27/18 14:01 08/27/18 15:00 Temperature Pulse Rate 68 72 68 Respiratory Rate 16 22 19 Blood Pressure 160/77 H Pulse Oximetry 100 100 100 08/27/18 15:01 08/27/18 16:00 08/27/18 16:01 Temperature 97.9 F Pulse Rate 68 72 72 Respiratory Rate 19 18 18 Blood Pressure 158/72 H 149/72 H 149/72 H Pulse Oximetry 100 98 97 08/27/18 17:00 08/27/18 17:01 08/27/18 18:00 Temperature Pulse Rate 63 63 67 Respiratory Rate 18 17 34 H Blood Pressure 163/73 H Pulse Oximetry 100 100 100 08/27/18 18:01 08/27/18 19:00 08/27/18 19:01 Temperature Pulse Rate 67 68 68 Respiratory Rate 28 H 17 18 Blood Pressure 160/71 H 145/67 H Pulse Oximetry 100 100 100 08/27/18 19:45 08/27/18 20:00 08/27/18 20:01 Temperature 99.0 F Pulse Rate 70 82 79 Respiratory Rate 22 23 21 Blood Pressure 153/76 H Pulse Oximetry 98 98 08/27/18 21:00 08/27/18 21:01 08/27/18 22:00 Temperature Pulse Rate 81 81 70 Respiratory Rate 20 20 17 Blood Pressure 150/68 H Pulse Oximetry 94 L 94 L 94 L 08/27/18 22:01 08/27/18 23:00 08/27/18 23:01 Temperature Pulse Rate 71 72 72 Respiratory Rate 18 30 H 24 Blood Pressure 156/75 H 159/68 H Pulse Oximetry 94 L 91 L 91 L 08/28/18 00:00 08/28/18 04:00 08/28/18 08:00 Temperature 99.2 F 98.5 F 98.9 F Pulse Rate 76 71 72 Respiratory Rate 22 19 32 H Blood Pressure 157/76 H 151/60 H 155/71 H Pulse Oximetry 94 L 94 L 92 L 08/28/18 13:01 Temperature Pulse Rate Respiratory Rate Blood Pressure Pulse Oximetry 94 L Intake & Output 08/27/18 08/28/18 08/28/18 18:59 06:59 18:59 Intake Total 772 / 772 893 / 893 Output Total 1150 / 1150 600 / 600 Balance -378 / -378 293 / 293 Weight 51.4 kg Intake: IV 200 / 200 200 / 200 Zosyn 4.5 GM Premix 4.5 gm In 200 / 200 200 / 200 100 ml @ 200 mls/hr IV.SIG Q6H JADA Rx#:[id number] Tube Feeding 512 / 512 603 / 603 Tube Irrigant 60 / 60 Water Bolus Amount 90 / 90 Output: Urine 1150 / 1150 Stool 250 / 250 Urine Amount (Catheter) 350 / 350 Condom 350 / 350 Other: Date of Last Bowel Movement 08/27/18 08/28/18 08/28/18 # Incontinent Bowel Movements 2 Narrative: awake, opened eyes to call of name, non verbal aphasic anicteric neck supple lungs- no rales, decreased breath sounds regular rhythm abdomen- PEG in place condom cath in place left hemiplegia Results Labs on day of discharge: Labs from last 24 hours 08/28/18 08/28/18 08/27/18 06:44 00:25 16:43 POC Glucose 284 H 291 H 236 H - Impressions ITS Impressions Head CT 08/18/18 00:56 CONCLUSION: 1. No acute intracranial abnormality. 2. 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 . Chest CT 08/20/18 00:00 CONCLUSION: 1. Bilateral airspace disease, right much worse than left. I believe the left basilar consolidation is probably atelectatic with may be a mild left perihilar infiltrate. 2. On the right, dense consolidation in the right base with patchy airspace disease in the right perihilar and upper lobe distribution concerning for a pneumonic process. Chest X-Ray 08/26/18 05:00 CONCLUSION: Worsening parenchymal consolidation and small effusions bilaterally as above. Discharge Plan - Discharge Disposition Patient Disposition: Discharge to SNF - Discharge Condition Condition: Stable - Discharge Order Discharge Orders: Discharge Order (Routine); Ordered 08/28/18 Ordered By: Rosario Shetty - Discharge Details Anticipated Discharge Date: 08/28/18 - Physicians Team Primary Care Provider: Jeff Vieira Attending Provider: Rosario Shetty Other Providers: Rodney Genao MD ; [facility] ; [facility] ; Ronaldo Guillen MD
[2018-08-28 14:38] VITALS: BP 145/65; PULSE 64; RESP 25; TEMP 98.5
[2018-08-28] MEDS ORDERED: Insulin Detemir Inj 1,000 UNIT/10 ML Vial SQ SCH (21:00)
== END 2018-08-28 15:55 ==
LOC: NEPE 00:38 → NEDA 01:58 → N03 05:01
PROVIDERS: ADMIT Internal Medicine; ATTEND Internal Medicine

== ENCOUNTER 2018-09-30 15:52 | Observation (INO) ==
[2018-09-30] MEDS ORDERED: Sod Chloride 0.9% Inj 1,000 ML IV.SIG ONE (16:00)
--- NOTE | 2018-09-30 16:07 | ED ---
HPI General Chief Complaint: Fall Stated Complaint: fall Time Seen by Provider: 09/30/18 15:55 History of Present Illness HPI Narrative: Patient is 62 years old male with history of CVA, dementia, has residual left-sided weakness, fell today in the rehabilitation center. It was mechanical witnessed fall. Patient is poor historian, possibly hit his head, has mild low back pain. Systolic blood pressure is 106. Patient denies any complaints. Related Data Home Medications Medication Instructions Recorded Confirmed amlodipine 10 mg FEEDING TUBE DAILY 06/27/18 09/30/18 cyclobenzaprine 10 mg FEEDING TUBE TID PRN 06/27/18 09/30/18 ferrous sulfate 325 mg FEEDING TUBE DAILY 06/27/18 09/30/18 lisinopril 20 mg FEEDING TUBE DAILY 06/27/18 09/30/18 metformin 1,000 mg FEEDING TUBE BID 06/27/18 09/30/18 atorvastatin [Lipitor] 10 mg FEEDING TUBE HS 07/03/18 09/30/18 magnesium citrate 296 ml FEEDING TUBE DAILY PRN 07/03/18 09/30/18 magnesium hydroxide [Milk of 30 ml FEEDING TUBE DAILY PRN 07/03/18 09/30/18 Magnesia] sennosides [Senna Lax] 2 tab FEEDING TUBE Q12H PRN 07/03/18 09/30/18 Previous Rx's Medication Instructions Recorded insulin aspart U-100 [Novolog 0 unit SUB-Q ACHS #1 vial 06/26/18 U-100 Insulin aspart] bisacodyl [Bisac-Evac] 10 mg VT DAILY PRN ea 06/30/18 insulin detemir U-100 [Levemir 10 unit SUB-Q BID ml 06/30/18 U-100 Insulin] aspirin 325 mg G-TUBE DAILY tab 07/08/18 metoprolol tartrate 12.5 mg PO BID #0 tab 07/08/18 tamsulosin 0.4 mg PO DAILY cap 07/08/18 acetaminophen 650 mg PO Q4H PRN tab 07/14/18 ciprofloxacin [Cipro] 500 mg PO Q12H #100 ml 07/14/18 lansoprazole [Prevacid SoluTab] 30 mg FEEDING TUBE BID #60 tab 07/14/18 Allergies Allergy/AdvReac Type Severity Reaction Status Date / Time No Known Allergies Allergy Verified 07/11/18 22:34 Review of Systems ROS: all other systems reviewed are negative Musculoskeletal Reports back pain, Reports myalgias and Reports arthralgias PMF Social History Social History Substance History: No History of Abuse Second Hand Smoke Exposure: No Smoking Status: Unknown if ever smoked Tobacco Type: Cigarettes How Often Do You Have a Drink Containing Alcohol: Unable to Obtain Immunization History Tetanus Immunization: Unsure Exam Narrative Exam Narrative: GENERAL: 62 years old male in no apparent distress. Cachectic, comfortable in nature. SKIN: Focused skin assessment warm/dry. HEAD: Normocephalic, no sign of recent trauma. EYES: Pupils equal and round. No scleral icterus. No injection or drainage. ENT: No nasal bleeding or discharge. Mucous membranes pink and moist. NECK: Trachea midline. No JVD. CARDIOVASCULAR: Regular rate and rhythm. No murmur appreciated. RESPIRATORY: No accessory muscle use. Clear to auscultation. Breath sounds equal bilaterally. GASTROINTESTINAL: Abdomen soft, non-tender, nondistended. Hepatic and splenic margins not palpable. MUSCULOSKELETAL: Mild paraspinal low back tenderness. NEUROLOGICAL: Awake and alert. No obvious cranial nerve deficits. Motor grossly within normal limits. Normal speech. PSYCHIATRIC: Patient is awake alert oriented x2. Course Initial Documented Vital Signs Temperature 98.1 F 09/30/18 15:56 Pulse Rate 80 09/30/18 15:56 Respiratory Rate 18 09/30/18 15:56 Blood Pressure 109/60 09/30/18 15:56 Pulse Oximetry 100 09/30/18 15:56 Last Documented Vital Signs Temperature 98.1 F 09/30/18 15:56 Pulse Rate 84 09/30/18 15:58 Respiratory Rate 15 09/30/18 15:58 Blood Pressure 136/68 09/30/18 15:58 Pulse Oximetry 100 09/30/18 15:58 Medical Decision Making MDM Narrative Medical decision making narrative: Patient accidentally fell, CAT scan and x- rays ordered, patient was told him, blood pressures on the low side, blood work is ordered, IV fluids will be given. 1809: Patient is dehydrated BUN is 59, creatinine is 1.69 for some compared to presentation 1 months ago. IV fluids given, patient needs to be admitted for observation for dehydration and renal insufficiency treatment. Case discussed with Dr. Bustillos, accepted for observation. Medical Screen Exam Complete: Yes Emergency Medical Condition: Yes Lab Data Result diagrams: 09/30/18 16:22 09/30/18 16:22 Lab Results 09/30/18 09/30/18 09/30/18 Range/Units 16:22 16:22 16:22 WBC 10.2 (4.0-11.0) th/mm3 RBC 3.87 L (4.50-5.90) mil/mm3 Hgb 11.2 L (13.0-17.0) gm/dL Hct 33.5 L (39.0-51.0) % MCV 86.4 (80.0-100.0) fL MCH 28.9 (27.0-34.0) pg MCHC 33.4 (32.0-36.0) % RDW 17.8 H (11.6-17.2) % Plt Count 217 (150-450) th/mm3 MPV 9.6 (7.0-11.0) fL Neut % (Auto) 78.2 H (16.0-70.0) % Lymph % (Auto) 12.3 (9.0-44.0) % [place] % (Auto) 7.6 (0.0-8.0) % Eos % (Auto) 1.5 (0.0-4.0) % Baso % (Auto) 0.4 (0.0-2.0) % Neut # (Auto) 8.0 H (1.8-7.7) th/mm3 Lymph # (Auto) 1.3 (1.0-4.8) th/mm3 [place] # (Auto) 0.8 (0.0-0.9) th/mm3 Eos # (Auto) 0.2 (0.0-0.4) th/mm3 Baso # (Auto) 0.0 (0.0-0.2) th/mm3 WBC Differential . Differential Comment Auto diff final Sodium 133 L (136-145) meq/L Potassium 5.1 (3.5-5.1) meq/L Chloride 100 (98-107) meq/L Carbon Dioxide 22.5 (21.0-32.0) meq/L Anion Gap 11 (5-15) meq/L BUN 59 H (7-18) mg/dL Creatinine 1.62 H (0.60-1.30) mg/dL Estimated GFR 53 L (>89) mL/min Random Glucose 215 H (74-106) mg/dL Calcium 8.7 (8.5-10.1) mg/dL Total Bilirubin 0.2 (0.2-1.0) mg/dL AST 19 (15-37) U/L ALT 28 (12-78) U/L Alkaline Phosphatase 148 H (45-117) U/L Troponin I Less than 0.02 L (0.02-0.05) ng/mL B-Natriuretic Peptide 17 (0-100) pg/mL Total Protein 6.6 (6.4-8.2) g/dL Albumin 2.9 L (3.4-5.0) g/dL Urine Color (Yellw/Straw) Urine Clarity (Clear) Urine pH (5.0-8.5) Ur Specific [place] (1.002-1.035) Urine Protein (Neg-Trace) mg/dL Urine Glucose (UA) (Negative) mg/dL Urine Ketones (Negative) mg/dL Urine Occult Blood (Negative) Urine Nitrate (Negative) Urine Bilirubin (Negative) Urine Urobilinogen (Less than 2) mg/dL Ur Leukocyte Esterase (Negative) Urine RBC (0-3) /hpf Urine WBC (0-5) /hpf Ur Squamous Epith Cells (0-5) /hpf Hyaline Casts (0-3) /lpf Micro UA Comment Ur Microscopic Review Urine Culture Comments 09/30/18 Range/Units 16:31 WBC (4.0-11.0) th/mm3 RBC (4.50-5.90) mil/mm3 Hgb (13.0-17.0) gm/dL Hct (39.0-51.0) % MCV (80.0-100.0) fL MCH (27.0-34.0) pg MCHC (32.0-36.0) % RDW (11.6-17.2) % Plt Count (150-450) th/mm3 MPV (7.0-11.0) fL Neut % (Auto) (16.0-70.0) % Lymph % (Auto) (9.0-44.0) % [place] % (Auto) (0.0-8.0) % Eos % (Auto) (0.0-4.0) % Baso % (Auto) (0.0-2.0) % Neut # (Auto) (1.8-7.7) th/mm3 Lymph # (Auto) (1.0-4.8) th/mm3 [place] # (Auto) (0.0-0.9) th/mm3 Eos # (Auto) (0.0-0.4) th/mm3 Baso # (Auto) (0.0-0.2) th/mm3 WBC Differential Differential Comment Sodium (136-145) meq/L Potassium (3.5-5.1) meq/L Chloride (98-107) meq/L Carbon Dioxide (21.0-32.0) meq/L Anion Gap (5-15) meq/L BUN (7-18) mg/dL Creatinine (0.60-1.30) mg/dL Estimated GFR (>89) mL/min Random Glucose (74-106) mg/dL Calcium (8.5-10.1) mg/dL Total Bilirubin (0.2-1.0) mg/dL AST (15-37) U/L ALT (12-78) U/L Alkaline Phosphatase (45-117) U/L Troponin I (0.02-0.05) ng/mL B-Natriuretic Peptide (0-100) pg/mL Total Protein (6.4-8.2) g/dL Albumin (3.4-5.0) g/dL Urine Color Yellow (Yellw/Straw) Urine Clarity Clear (Clear) Urine pH 6.0 (5.0-8.5) Ur Specific [place] 1.011 (1.002-1.035) Urine Protein 30 H (Neg-Trace) mg/dL Urine Glucose (UA) Negative (Negative) mg/dL Urine Ketones Negative (Negative) mg/dL Urine Occult Blood Negative (Negative) Urine Nitrate Negative (Negative) Urine Bilirubin Negative (Negative) Urine Urobilinogen Less than 2 (Less than 2) mg/dL Ur Leukocyte Esterase Negative (Negative) Urine RBC Less than 1 (0-3) /hpf Urine WBC Less than 1 (0-5) /hpf Ur Squamous Epith Cells 1 (0-5) /hpf Hyaline Casts 1 (0-3) /lpf Micro UA Comment Culture not ind Ur Microscopic Review Not Reportable Urine Culture Comments Culture not ind Imaging Data Radiologist's impression: Chest X-Ray 09/30/18 16:00 CONCLUSION: 1. Stable mild cardiomegaly. 2. Otherwise, no acute abnormality. Head CT 09/30/18 16:00 CONCLUSION: 1. Old lacunar infarcts bilaterally otherwise negative . Lumbar Spine X-Ray 09/30/18 16:02 CONCLUSION: Minimal loss of disc space height L5-S1 age indeterminate. Pelvis X-Ray 09/30/18 16:02 CONCLUSION: Negative for fracture. Discharge Plan Discharge Disposition Patient Disposition: ED Admit(ED Internal Use Only) Discharge Condition Condition: Fair Discharge Order Discharge Orders: ED Use Only Admit Order (Routine); Ordered 09/30/18 Ordered By: Ajay Cohen Physicians Team ED Provider: Ajay Cohen Primary Care Provider: Jeff Vieira Rxs /Orders / Referrals /Forms Prescriptions: No Action acetaminophen 325 mg Tablet 650 mg PO Q4H PRN (Reason: Temp > 100.4, pain 1 to 10) RF: 0 ciprofloxacin [Cipro] 500 mg/5 mL Suspension,Microcapsule Recon 500 mg PO Q12H Qty: 100 RF: 0 lansoprazole [Prevacid SoluTab] 30 mg Tablet,Disintegrat, Delay Rel 30 mg Feeding Tube BID Qty: 60 RF: 0 insulin aspart U-100 [Novolog U-100 Insulin aspart] 100 unit/mL Solution Sub-Q ACHS Qty: 1 RF: 0 cyclobenzaprine 10 mg Tablet 10 mg Feeding Tube TID PRN (Reason: Muscle Spasm) RF: 0 lisinopril 20 mg Tablet 20 mg Feeding Tube DAILY RF: 0 amlodipine 10 mg Tablet 10 mg Feeding Tube DAILY RF: 0 ferrous sulfate 325 mg (65 mg iron) Tablet 325 mg Feeding Tube DAILY RF: 0 metformin 1,000 mg Tablet 1,000 mg Feeding Tube BID RF: 0 bisacodyl [Bisac-Evac] 10 mg Suppository 10 mg VT DAILY PRN (Reason: Severe Consitipation) RF: 0 insulin detemir U-100 [Levemir U-100 Insulin] 100 unit/mL Solution 10 unit Sub-Q BID RF: 0 sennosides [Senna Lax] 8.6 mg tablet 2 tab Feeding Tube Q12H PRN (Reason: Moderate Constipation) RF: 0 atorvastatin [Lipitor] 10 mg tablet 10 mg Feeding Tube HS RF: 0 magnesium hydroxide [Milk of Magnesia] 400 mg/5 mL Suspension 30 ml Feeding Tube DAILY PRN (Reason: Constipation) RF: 0 magnesium citrate Solution 296 ml Feeding Tube DAILY PRN (Reason: Constipation) RF: 0 aspirin 325 mg Tablet 325 mg G-Tube DAILY RF: 0 tamsulosin 0.4 mg Capsule,Extended Release 24hr 0.4 mg PO DAILY RF: 0 metoprolol tartrate 25 mg Tablet 12.5 mg PO BID Qty: 0 RF: 0 Discharge Interventions Interventions: Vital Signs Last Done: 09/30/18 15:58 Status ED Status: Admitted Observation Patient
--- NOTE | 2018-09-30 17:00 | XR ---
EXAM DATE: 09/30/2018 4:56 PM EST AGE/SEX: 62 years / Male INDICATIONS: Chest congestion starting today CLINICAL DATA: This is the patient's initial encounter. Patient reports that signs and symptoms have been present for 1 day and indicates a pain score of 0/10. MEDICAL/SURGICAL HISTORY: . Hypertension. Anemia. Diabetes mellitus type II. Stroke. None. COMPARISON: [facility] – [place], CHEST 1V SINGLE AP, 08/26/2018. . FINDINGS: No significant focal pleural or parenchymal opacities. Cardiac silhouette is enlarged. Osseous struct ures are intact. CONCLUSION: 1. Stable mild cardiomegaly. 2. Otherwise, no acute abnormality. Electronically signed by: Berry Gillis MD 09/30/2018 4:59 PM EST
[2018-09-30 17:01] LABS: Baso % (Auto) 0.4 % (0.0-2.0); Eos # (Auto) 0.2 th/mm3 (0.0-0.4); Eos % (Auto) 1.5 % (0.0-4.0); Hematocrit 33.5 % (39.0-51.0); Hemoglobin 11.2 gm/dL (13.0-17.0); Lymph # (Auto) 1.3 th/mm3 (1.0-4.8); Lymph % (Auto) 12.3 % (9.0-44.0); Mean Corpuscular HGB Conc 33.4 % (32.0-36.0); Mean Corpuscular Hemoglobin 28.9 pg (27.0-34.0); Mean Corpuscular Volume 86.4 fL (80.0-100.0); Mean Platelet Volume 9.6 fL (7.0-11.0); Mono # (Auto) 0.8 th/mm3 (0.0-0.9); Mono % (Auto) 7.6 % (0.0-8.0); Neut % (Auto) 78.2 % (16.0-70.0); Platelet Count 217 th/mm3 (150-450); Red Blood Count 3.87 mil/mm3 (4.50-5.90); Red Cell Distribution Width 17.8 % (11.6-17.2); White Blood Count 10.2 th/mm3 (4.0-11.0)
[2018-09-30 17:04] LABS: Bilirubin,Urine Negative (Negative); Clarity,Urine Clear (Clear); Color,Urine Yellow (Yellw/Straw); Glucose,Urine (UA) Negative (Negative); Hyaline Casts,Urine 1 /lpf (0-3); Leukocyte Esterase,Urine Negative (Negative); Nitrite,Urine Negative (Negative); Specific Gravity,Urine 1.011 (1.002-1.035); Squamous Epithelial Cell,Urine 1 /hpf (0-5)
[2018-09-30 17:15] LABS: Albumin 2.9 g/dL (3.4-5.0); Anion Gap 11 meq/L (5-15); Aspartate Aminotransferase 19 U/L (15-37); Blood Urea Nitrogen 59 mg/dL (7-18); Calcium 8.7 mg/dL (8.5-10.1); Carbon Dioxide 22.5 meq/L (21.0-32.0); Chloride 100 meq/L (98-107); Glomerular Filtration Rate 53 mL/min (>89); Glucose,Random 215 mg/dL (74-106); Potassium 5.1 meq/L (3.5-5.1); Sodium 133 meq/L (136-145)
--- NOTE | 2018-09-30 17:16 | XR ---
EXAM DATE: 09/30/2018 5:02 PM EST AGE/SEX: 62 years / Male INDICATIONS: Lower back pain post fall today CLINICAL DATA: This is the patient's initial encounter. Patient reports that signs and symptoms have been present for 1 day and indicates a pain score of 8/10. MEDICAL/SURGICAL HISTORY: Stroke. None. COMPARISON: No prior exams available for comparison. FINDINGS: There is mild scoliosis convexity directed towards the left that may be positional. There is good pre servation of vertebral body heights. There is minimal loss of disc space height at L5-S1. CONCLUSION: Minimal loss of disc space height L5-S1 age indeterminate. Electronically signed by: Osmel Ulloa MD 09/30/2018 5:15 PM EST
--- NOTE | 2018-09-30 17:16 | XR ---
EXAM DATE: 09/30/2018 4:58 PM EST AGE/SEX: 62 years / Male INDICATIONS: Trauma to pelvis post fall today CLINICAL DATA: This is the patient's initial encounter. Patient reports that signs and symptoms have been present for 1 day and indicates a pain score of 0/10. MEDICAL/SURGICAL HISTORY: None. None. COMPARISON: No prior exams available for comparison. FINDINGS: Examination of the pelvis demonstrates no evidence of fracture or dislocation. Bony mineralization i s normal. There is no widening of the sacroiliac joints. No foreign body is identified. CONCLUSION: Negative for fracture. Electronically signed by: Osmel Ulloa MD 09/30/2018 5:14 PM EST
[2018-09-30 17:18] LABS: Alanine Aminotransferase 28 U/L (12-78); Alkaline Phosphatase 148 U/L (45-117); Total Protein 6.6 g/dL (6.4-8.2)
--- NOTE | 2018-09-30 17:40 | CT ---
EXAM DATE: 09/30/2018 5:36 PM EST AGE/SEX: 62 years / Male INDICATIONS: Trauma, fall. CLINICAL DATA: This is the patient's initial encounter. Patient reports that signs and symptoms have been present for 1 day and indicates a pain score of 6/10. MEDICAL/SURGICAL HISTORY: Cerebrovascular disease. Diabetes. Hypertension. Stroke. None. RADIATION DOSE: 50.44 CTDI (mGy) [place] [facility] [place]. . TECHNIQUE: CT of the head without contrast. Using automated exposure control and adjustment of the mA and/or kV according to patient size, radiation dose was kept as low as reasonably achievable to ob tain optimal diagnostic quality images. DICOM format image data is available electronically for revi ew and comparison. FINDINGS: Old lacunar type infarcts are seen in the basal ganglia bilaterally. There is no parenchymal hemorrha ge, acute infarction or mass lesion. There are no extra-axial fluid collections appreciated. Posterio r fossa is unremarkable midline fourth ventricle. Review of bone windows reveals no evidence for fracture. CONCLUSION: 1. Old lacunar infarcts bilaterally otherwise negative . Electronically signed by: Osmel Ulloa MD 09/30/2018 5:38 PM EST
[2018-09-30] MEDS ORDERED: Sodium Chlor 0.9% Inj 500 ML IV.SIG SCH (18:00)
[2018-09-30] MEDS ORDERED: Dextrose 50% in Water 50 ML Vial IV.PUSH PRN (20:27)
[2018-09-30] MEDS ORDERED: Bisacodyl 10 MG Supp RECTAL PRN (20:27)
--- NOTE | 2018-09-30 20:39 | P.HP ---
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 The patient was in his snf facility when he fell out of a chair and bumped his head on the ground. He denies any loss of consciousness. No seizure activity. Head CT negative for acute process. No signs of trauma on the patient's head. He denies any pain at this time. No recent fever/chills. No chest pain or shortness of breath. No abdominal pain. No nausea/vomiting/diarrhea. Review of Systems All other systems reviewed negative except as stated in HPI PMFSH - History History Provided By: Patient, Medical Record - Medical History Medical History: Medical History (Last Updated 09/30/18 @ 20:35 by Lindsey Smith MD) Stroke (Acute) Hyperlipemia (Acute) Anemia (Acute) HTN (hypertension) (Acute) Diabetes mellitus (Acute) MDRO (multiple drug resistant organisms) resistance Onset Date: ~08/18/18 - Surgical History Surgical History: Surgical History (Last Updated 09/30/18 @ 20:35 by Lindsey Smith MD) History of tonsillectomy S/P percutaneous endoscopic gastrostomy (PEG) tube placement - Family History Family History: Family History (Last Reviewed 09/30/18 @ 20:35 by Lindsey Smith MD) Mother CVA (cerebral vascular accident) HTN (hypertension) - Tobacco History Second Hand Smoke Exposure: No Smoking Status: Unknown if ever smoked Tobacco Type: Cigarettes - Alcohol History How Often Do You Have a Drink Containing Alcohol: Unable to Obtain - Substance Use History Substance History: No History of Abuse - Immunization History Tetanus Immunization: Unsure Medications and Allergies Active Medications: Active Medications Al Hydroxide/Mg Hydroxide (Milk Of Magnsarai Liq) 30 ml PO Q12H PRN PRN Reason: Mild Constipation Amlodipine Besylate (Norvasc) 10 mg G-TUBE DAILY JADA Atorvastatin Calcium (Lipitor) 10 mg G-TUBE HS JADA Bisacodyl (Dulcolax Supp) 10 mg RECTAL DAILY PRN PRN Reason: SEVERE CONSITIPATION Cyclobenzaprine HCl (Flexeril) 10 mg G-TUBE TID PRN PRN Reason: Muscle Spasm Dextrose (D50w Vial) 50 ml IV.PUSH UNSCH PRN PRN Reason: PER HYPOGLYCEMIA PROTOCOL Heparin Sodium (Porcine) (Heparin Inj) 5,000 units SQ Q12H JADA Sodium Chloride (Ns Inj) 1,000 mls @ 100 mls/hr IV.CONT .Q10H JADA Insulin Aspart (Novolog Insulin Correctional Sugar Inj) 0 unit SQ ACHS AND 3AM JADA; Protocol Insulin Detemir (Levemir Inj) 10 unit SQ BID JADA Lactulose (Lactulose Liq) 30 ml PO DAILY PRN PRN Reason: SEVERE CONSITIPATION Lansoprazole (Prevacid Solutab) 30 mg G-TUBE BID JADA Lisinopril (Prinivil) 20 mg G-TUBE DAILY JADA Metoprolol Tartrate (Lopressor) 12.5 mg PO BID JADA Ondansetron HCl (Zofran Inj) 4 mg IV.PUSH Q6H PRN PRN Reason: NAUSEA OR VOMITING Sodium Chloride (Ns Flush) 2 ml IV.FLUSH PRN PRN PRN Reason: FLUSH AFTER USING IV ACCESS Allergies Allergy/AdvReac Type Severity Reaction Status Date / Time No Known Allergies Allergy Verified 07/11/18 22:34 Home Medications Medication Instructions Recorded Confirmed Type amlodipine 10 mg FEEDING TUBE DAILY 06/27/18 09/30/18 History cyclobenzaprine 10 mg FEEDING TUBE TID PRN 06/27/18 09/30/18 History ferrous sulfate 325 mg FEEDING TUBE DAILY 06/27/18 09/30/18 History lisinopril 20 mg FEEDING TUBE DAILY 06/27/18 09/30/18 History metformin 1,000 mg FEEDING TUBE BID 06/27/18 09/30/18 History atorvastatin [Lipitor] 10 mg FEEDING TUBE HS 07/03/18 09/30/18 History magnesium citrate 296 ml FEEDING TUBE DAILY PRN 07/03/18 09/30/18 History magnesium hydroxide [Milk of 30 ml FEEDING TUBE DAILY PRN 07/03/18 09/30/18 History Magnesia] sennosides [Senna Lax] 2 tab FEEDING TUBE Q12H PRN 07/03/18 09/30/18 History Exam Vital signs: Vital Signs 09/30/18 15:56 09/30/18 15:58 Temperature 98.1 F Pulse Rate 80 84 Respiratory Rate 18 15 Blood Pressure 109/60 136/68 Pulse Oximetry 100 100 Intake & Output 09/30/18 09/30/18 10/01/18 06:59 18:59 06:59 Intake Total 1500 / 1500 Balance 1500 / 1500 Weight 54.431 kg Intake: IV 1500 / 1500 NS Inj 1,000 ML @ Wide Open IV. 1000 / 1000 SIG BOLUS ONE Rx#:[id number] NS Inj 500 ML @ 1000 mls/hr IV. 500 / 500 SIG BOLUS JADA Rx#:[id number] Narrative: Gen.: No acute distress Head: Normocephalic. Atraumatic. EENT: Pupils equal round and reactive to light. Nose without drainage. Airway intact. Throat without injection. Cardiovascular: Regular rate and rhythm. No murmurs, rubs or gallops. Respiratory: Lungs clear to auscultation bilaterally. No wheezes or rhonchi. Abdomen: Soft, nontender, nondistended. No peritoneal signs. Musculoskeletal: No gross deformities. No edema. Skin: No obvious rashes or erythema. Neuro: Sensory and motor grossly intact. Cranial nerves II through XII grossly intact. Residual left-sided weakness at baseline. Results - Labs CBC & Chem 7: 09/30/18 16:22 09/30/18 16:22 Labs: Laboratory Results - last 24 hr 09/30/18 09/30/18 09/30/18 16:22 16:22 16:22 WBC 10.2 RBC 3.87 L Hgb 11.2 L Hct 33.5 L MCV 86.4 MCH 28.9 MCHC 33.4 RDW 17.8 H Plt Count 217 MPV 9.6 Neut % (Auto) 78.2 H Lymph % (Auto) 12.3 [place] % (Auto) 7.6 Eos % (Auto) 1.5 Baso % (Auto) 0.4 Neut # (Auto) 8.0 H Lymph # (Auto) 1.3 [place] # (Auto) 0.8 Eos # (Auto) 0.2 Baso # (Auto) 0.0 WBC Differential . Differential Comment Auto diff final Sodium 133 L Potassium 5.1 Chloride 100 Carbon Dioxide 22.5 Anion Gap 11 BUN 59 H Creatinine 1.62 H Estimated GFR 53 L Random Glucose 215 H Calcium 8.7 Total Bilirubin 0.2 AST 19 ALT 28 Alkaline Phosphatase 148 H Troponin I Less than 0.02 L B-Natriuretic Peptide 17 Total Protein 6.6 Albumin 2.9 L Urine Color Urine Clarity Urine pH Ur Specific [place] Urine Protein Urine Glucose (UA) Urine Ketones Urine Occult Blood Urine Nitrate Urine Bilirubin Urine Urobilinogen Ur Leukocyte Esterase Urine RBC Urine WBC Ur Squamous Epith Cells Hyaline Casts Micro UA Comment Ur Microscopic Review Urine Culture Comments 09/30/18 16:31 WBC RBC Hgb Hct MCV MCH MCHC RDW Plt Count MPV Neut % (Auto) Lymph % (Auto) [place] % (Auto) Eos % (Auto) Baso % (Auto) Neut # (Auto) Lymph # (Auto) [place] # (Auto) Eos # (Auto) Baso # (Auto) WBC Differential Differential Comment Sodium Potassium Chloride Carbon Dioxide Anion Gap BUN Creatinine Estimated GFR Random Glucose Calcium Total Bilirubin AST ALT Alkaline Phosphatase Troponin I B-Natriuretic Peptide Total Protein Albumin Urine Color Yellow Urine Clarity Clear Urine pH 6.0 Ur Specific [place] 1.011 Urine Protein 30 H Urine Glucose (UA) Negative Urine Ketones Negative Urine Occult Blood Negative Urine Nitrate Negative Urine Bilirubin Negative Urine Urobilinogen Less than 2 Ur Leukocyte Esterase Negative Urine RBC Less than 1 Urine WBC Less than 1 Ur Squamous Epith Cells 1 Hyaline Casts 1 Micro UA Comment Culture not ind Ur Microscopic Review Not Reportable Urine Culture Comments Culture not ind - Imaging Impressions Chest X-Ray 09/30/18 16:00 CONCLUSION: 1. Stable mild cardiomegaly. 2. Otherwise, no acute abnormality. Head CT 09/30/18 16:00 CONCLUSION: 1. Old lacunar infarcts bilaterally otherwise negative . Lumbar Spine X-Ray 09/30/18 16:02 CONCLUSION: Minimal loss of disc space height L5-S1 age indeterminate. Pelvis X-Ray 09/30/18 16:02 CONCLUSION: Negative for fracture. Caprini VTE Risk Assessment Caprini VTE Risk Assessment: Moderate/High Risk (score >= 2) Caprini Risk Assessment Model: Point Value = 1 Point Value = 2 Point Value = 3 Point Value = 5 Age 41-60 Minor surgery BMI > 25 kg/m2 Swollen legs Varicose veins or History of unexplained or recurrent spontaneous Oral contraceptives or hormone replacement Sepsis (< 1 month) Serious lung disease, including pneumonia (< 1 month) Abnormal pulmonary function Acute myocardial infarction Congestive heart failure (< 1 month) History of inflammatory bowel disease Medical patient at bed rest Age 61-74 Arthroscopic surgery Major open surgery (> 45 min) Laparoscopic surgery (> 45 min) Malignancy Confined to bed (> 72 hours) Immobilizing plaster cast Central venous access Age >= 75 History of VTE Family history of VTE Factor V Leiden Prothrombin [id number] Lupus anticoagulant Anticardiolipin antibodies Elevated serum homocysteine Heparin-induced thrombocytopenia Other congenital or acquired thrombophilia Stroke (< 1 month) Elective arthroplasty Hip, pelvis, or leg fracture Acute spinal cord injury (< 1 month) Prophylaxis Regimen: Total Risk Factor Score Risk Level Prophylaxis Regimen 0-1 Low Early ambulation 2 Moderate Order ONE of the following: *Sequential Compression Device (SCD) *Heparin 5000 units SQ BID 3-4 Higher Order ONE of the following medications: *Heparin 5000 units SQ TID *Enoxaparin/Lovenox 40 mg SQ daily (WT < 150 kg, CrCl > 30 mL/min) *Enoxaparin/Lovenox 30 mg SQ daily (WT < 150 kg, CrCl > 10-29 mL/min) *Enoxaparin/Lovenox 30 mg SQ BID (WT < 150 kg, CrCl > 30 mL/min) AND/OR *Sequential Compression Device (SCD) 5 or more Highest Order ONE of the following medications: *Heparin 5000 units SQ TID (Preferred with Epidurals) *Enoxaparin/Lovenox 40 mg SQ daily (WT < 150 kg, CrCl > 30 mL/min) *Enoxaparin/Lovenox 30 mg SQ daily (WT < 150 kg, CrCl > 10-29 mL/min) *Enoxaparin/Lovenox 30 mg SQ BID (WT < 150 kg, CrCl > 30 mL/min) AND *Sequential Compression Device (SCD) Assessment and Plan - Plan Assessment/plan: 1. Acute kidney injury Creatinine 1.62, baseline 0.8 Likely secondary to dehydration IV fluid hydration Monitor renal function 2. History of CVA with dysphasia NG tube Continue tube feeds and free water flushes Physical therapy 3. Diabetes mellitus Continue home Levemir Sliding scale insulin Monitor blood glucose 4. Hypertension/hyperlipidemia Continue home medications FEN Glucerna 1.5 tube feeds 5 cans/day Electrolytes: Monitor and replete as needed NS at 100 cc/hour Heparin
[2018-09-30] MEDS: Metoprolol Tartrate 25 MG Tablet PO SCH (22:55)
[2018-09-30] MEDS: Sod Chloride 0.9% Inj 1,000 ML IV.CONT SCH (22:55)
[2018-09-30] MEDS: Insulin Detemir Inj 1,000 UNIT/10 ML Vial SQ SCH (22:56)
[2018-09-30] MEDS: Heparin - SQ 10,000 UNITS/ML Vial SQ SCH (22:56)
[2018-09-30] MEDS: Insulin NovoLOG Aspart Correctional Sugar Inj SQ SCH (22:56)
[2018-09-30] MEDS: Senna/Docusate Sodium 8.6/50 MG Tablet PO SCH (22:57)
[2018-10-01] MEDS: Insulin NovoLOG Aspart Correctional Sugar Inj SQ SCH ×3 (03:00→13:34)
[2018-10-01] MEDS: Senna/Docusate Sodium 8.6/50 MG Tablet PO SCH (08:13)
[2018-10-01] MEDS: Metoprolol Tartrate 25 MG Tablet PO SCH (08:14)
[2018-10-01] MEDS: Sod Chloride 0.9% Inj 1,000 ML IV.CONT SCH (08:14)
[2018-10-01] MEDS: Heparin - SQ 10,000 UNITS/ML Vial SQ SCH (08:15)
[2018-10-01] MEDS: Insulin Detemir Inj 1,000 UNIT/10 ML Vial SQ SCH (08:32)
[2018-10-01] MEDS ORDERED: Lisinopril 20 MG Tablet G-TUBE SCH (09:00)
[2018-10-01] MEDS ORDERED: amLODIPine 10 MG Tablet G-TUBE SCH (09:00)
[2018-10-01 10:14] LABS: Baso # (Auto) 0.1 th/mm3 (0.0-0.2); Baso % (Auto) 0.7 % (0.0-2.0); Eos # (Auto) 0.2 th/mm3 (0.0-0.4); Eos % (Auto) 2.2 % (0.0-4.0); Hematocrit 32.1 % (39.0-51.0); Hemoglobin 10.6 gm/dL (13.0-17.0); Lymph # (Auto) 1.7 th/mm3 (1.0-4.8); Lymph % (Auto) 19.4 % (9.0-44.0); Mean Corpuscular HGB Conc 33.1 % (32.0-36.0); Mean Corpuscular Hemoglobin 28.4 pg (27.0-34.0); Mean Platelet Volume 9.2 fL (7.0-11.0); Mono # (Auto) 0.7 th/mm3 (0.0-0.9); Mono % (Auto) 8.1 % (0.0-8.0); Neut # (Auto) 5.9 th/mm3 (1.8-7.7); Neut % (Auto) 69.6 % (16.0-70.0); Platelet Count 207 th/mm3 (150-450); Red Blood Count 3.73 mil/mm3 (4.50-5.90); Red Cell Distribution Width 18.3 % (11.6-17.2); White Blood Count 8.5 th/mm3 (4.0-11.0)
[2018-10-01 10:45] LABS: Anion Gap 8 meq/L (5-15); Blood Urea Nitrogen 31 mg/dL (7-18); Calcium 8.5 mg/dL (8.5-10.1); Carbon Dioxide 24.9 meq/L (21.0-32.0); Chloride 112 meq/L (98-107); Glomerular Filtration Rate Greater Than 89 mL/min (>89); Glucose,Random 109 mg/dL (74-106); Potassium 4.1 meq/L (3.5-5.1); Sodium 145 meq/L (136-145)
--- NOTE | 2018-10-01 11:02 | P.PN ---
Subjective Interval history: Nursing denies any acute changes overnight. Reports patient is tolerating his tube feeds well. No nausea no vomiting. Patient self sleeping, is upset that I woke him up. He denies any pain or nausea or vomiting. Physical Exam Vital signs: Vital Signs 09/30/18 15:56 09/30/18 15:58 09/30/18 22:34 Temperature 98.1 F 98.4 F Pulse Rate 80 84 77 Respiratory Rate 18 15 16 Blood Pressure 109/60 136/68 119/56 L Pulse Oximetry 100 100 100 10/01/18 04:00 10/01/18 08:00 Temperature 98.0 F 97.4 F L Pulse Rate 89 83 Respiratory Rate 17 16 Blood Pressure 136/95 H 133/63 Pulse Oximetry 100 98 Intake & Output 09/30/18 10/01/18 10/01/18 18:59 06:59 18:59 Intake Total 1500 / 1500 1000 / 1000 Balance 1500 / 1500 1000 / 1000 Weight 54.431 kg 54.431 kg Intake: IV 1500 / 1500 1000 / 1000 NS Inj 1,000 ML @ 100 mls/hr IV 1000 / 1000 .CONT .Q10H JADA Rx#:[id number] NS Inj 1,000 ML @ Wide Open IV. 1000 / 1000 SIG BOLUS ONE Rx#:[id number] NS Inj 500 ML @ 1000 mls/hr IV. 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, has intact 3/5 dorsiflexion plantarflexion on the right foot, none on the left Clear lungs bilaterally, unlabored breathing Heart sounds regular rate rhythm, no murmurs Results - Labs CBC & Chem 7: 10/01/18 09:56 10/01/18 09:56 Laboratory Results - last 24 hr 09/30/18 09/30/18 09/30/18 16:22 16:22 16:22 WBC 10.2 RBC 3.87 L Hgb 11.2 L Hct 33.5 L MCV 86.4 MCH 28.9 MCHC 33.4 RDW 17.8 H Plt Count 217 MPV 9.6 Neut % (Auto) 78.2 H Lymph % (Auto) 12.3 [place] % (Auto) 7.6 Eos % (Auto) 1.5 Baso % (Auto) 0.4 Neut # (Auto) 8.0 H Lymph # (Auto) 1.3 [place] # (Auto) 0.8 Eos # (Auto) 0.2 Baso # (Auto) 0.0 WBC Differential . Differential Comment Auto diff final Sodium 133 L Potassium 5.1 Chloride 100 Carbon Dioxide 22.5 Anion Gap 11 BUN 59 H Creatinine 1.62 H Estimated GFR 53 L POC Glucose Random Glucose 215 H Calcium 8.7 Total Bilirubin 0.2 AST 19 ALT 28 Alkaline Phosphatase 148 H Troponin I Less than 0.02 L B-Natriuretic Peptide 17 Total Protein 6.6 Albumin 2.9 L Urine Color Urine Clarity Urine pH Ur Specific [place] Urine Protein Urine Glucose (UA) Urine Ketones Urine Occult Blood Urine Nitrate Urine Bilirubin Urine Urobilinogen Ur Leukocyte Esterase Urine RBC Urine WBC Ur Squamous Epith Cells Hyaline Casts Micro UA Comment Ur Microscopic Review Urine Culture Comments 09/30/18 09/30/18 10/01/18 16:31 22:54 08:12 WBC RBC Hgb Hct MCV MCH MCHC RDW Plt Count MPV Neut % (Auto) Lymph % (Auto) [place] % (Auto) Eos % (Auto) Baso % (Auto) Neut # (Auto) Lymph # (Auto) [place] # (Auto) Eos # (Auto) Baso # (Auto) WBC Differential Differential Comment Sodium Potassium Chloride Carbon Dioxide Anion Gap BUN Creatinine Estimated GFR POC Glucose 135 H 96 Random Glucose Calcium Total Bilirubin AST ALT Alkaline Phosphatase Troponin I B-Natriuretic Peptide Total Protein Albumin Urine Color Yellow Urine Clarity Clear Urine pH 6.0 Ur Specific [place] 1.011 Urine Protein 30 H Urine Glucose (UA) Negative Urine Ketones Negative Urine Occult Blood Negative Urine Nitrate Negative Urine Bilirubin Negative Urine Urobilinogen Less than 2 Ur Leukocyte Esterase Negative Urine RBC Less than 1 Urine WBC Less than 1 Ur Squamous Epith Cells 1 Hyaline Casts 1 Micro UA Comment Culture not ind Ur Microscopic Review Not Reportable Urine Culture Comments Culture not ind 10/01/18 10/01/18 09:56 09:56 WBC 8.5 RBC 3.73 L Hgb 10.6 L Hct 32.1 L MCV 86.0 MCH 28.4 MCHC 33.1 RDW 18.3 H Plt Count 207 MPV 9.2 Neut % (Auto) 69.6 Lymph % (Auto) 19.4 [place] % (Auto) 8.1 H Eos % (Auto) 2.2 Baso % (Auto) 0.7 Neut # (Auto) 5.9 Lymph # (Auto) 1.7 [place] # (Auto) 0.7 Eos # (Auto) 0.2 Baso # (Auto) 0.1 WBC Differential . Differential Comment Auto diff final Sodium 145 D Potassium 4.1 D Chloride 112 H D Carbon Dioxide 24.9 Anion Gap 8 BUN 31 H Creatinine 0.89 Estimated GFR Greater than 89 POC Glucose Random Glucose 109 H D Calcium 8.5 Total Bilirubin AST ALT Alkaline Phosphatase Troponin I B-Natriuretic Peptide Total Protein Albumin Urine Color Urine Clarity Urine pH Ur Specific [place] Urine Protein Urine Glucose (UA) Urine Ketones Urine Occult Blood Urine Nitrate Urine Bilirubin Urine Urobilinogen Ur Leukocyte Esterase Urine RBC Urine WBC Ur Squamous Epith Cells Hyaline Casts Micro UA Comment Ur Microscopic Review Urine Culture Comments - Imaging Impressions Chest X-Ray 09/30/18 16:00 CONCLUSION: 1. Stable mild cardiomegaly. 2. Otherwise, no acute abnormality. Head CT 09/30/18 16:00 CONCLUSION: 1. Old lacunar infarcts bilaterally otherwise negative . Lumbar Spine X-Ray 09/30/18 16:02 CONCLUSION: Minimal loss of disc space height L5-S1 age indeterminate. Pelvis X-Ray 09/30/18 16:02 CONCLUSION: Negative for fracture. Assessment and Plan - Plan 62-year-old male admitted for acute kidney injury 1. Acute kidney injury Resolved with IV fluids 2. History of CVA with dysphasia NG tube Continue tube feeds and free water flushes Physical therapy 3. Diabetes mellitus Continue home Levemir Sliding scale insulin Monitor blood glucose 4. Hypertension/hyperlipidemia Continue home medications FEN Glucerna 1.5 tube feeds 5 cans/day Electrolytes: Monitor and replete as needed Patient has been maximal benefit from hospitalization is clinically stable for discharge.
--- NOTE | 2018-10-01 13:43 | P.DIET ---
Nutritional Evaluation Type of nutrition evaluation: initial Nutrition consult regarding: Tube Feeding Screening comments: 10/01 TF review Objective - Diagnosis dehydration, renal insufficiency, s/p fall - Objective Body Mass Index: 20.0 % IBW: 88 (IBW = 136lb) Body Weight Used for Calculations: Actual Energy Needs - Lower Range (kCal/kg): 30 Energy Needs - Upper Range (kCal/kg): 35 Lower Limit kCal/kg (kCals): 1,633 Upper Limit kCal/kg (kCals): 1,905 Lower Limit Protein Factor (Grams per Kg): 1.1 Upper Limit Protein Factor (Grams per Kg): 1.3 Lower Protein Needs (Protein): 60 Upper Protein Needs (Protein): 71 Dietitian Reviewed in Medical Record: Curent medications, Intake & Output, Labs , Medical history Diet Order: TF Objective Comments: PMH: anemia, DM, HTN, HLD, stroke, s/p PEG Labs: random glucose 215 109 Assessment Assessment: Pt currently on Glucerna 1.5 bolus feeds x 5 cans/day via PEG tube per home schedule recs from SNF. RD agree w/ Glucerna 1.5 bolus feeds x5 cans/day to provide 1780kcal, 98g of protein, and 900mL of free water to meet pts nutritional needs. Pt was tolerating TF per MD note, continue to monitor TF tolerance. Labs reviewed, dietitian following. Recommendations: 1. RD agree w/ Glucerna 1.5 bolus feeds x5 cans/day to meet pts nutritional needs 2. Continue to monitor TF tolerance 3. Dietitian following Dietitian to Monitor: Lab values, Intake & Output, Tube feeding tolerance, Weight change, Medical course
--- NOTE | 2018-10-01 17:28 | ECG ---
Date Performed: 09/30/2018 Time Performed: 16:59:40 PTAGE: 62 years EKG: Sinus rhythm MARKED LEFT AXIS DEVIATION NONSPECIFIC T-WAVE ABNORMALITY ABNORMAL ECG PREVIOUS TRACING : 07/03/2018 01.41 Since the previous tracing, no significant change noted DOCTOR: Amy Zarate Interpretating Date/Time 10/01/2018 17:25:25
== END 2018-10-01 15:57 ==
LOC: NEDH 15:52 → NEPC 15:52 → NEDH 20:44 → NEPGCP 20:45
PROVIDERS: ADMIT Hospitalist; ATTEND Hospitalist
DX: E11.9 Type 2 diabetes mellitus without complications; Z82.3 Family history of stroke; Z82.49 Family history of ischemic heart disease and other diseases of the circulatory system; W07.XXXA Fall from chair, initial encounter; E86.0 Dehydration; E78.5 Hyperlipidemia, unspecified; I69.354 Hemiplegia and hemiparesis following cerebral infarction affecting left non-dominant side; Z93.1 Gastrostomy status; Z79.4 Long term (current) use of insulin; M54.5 Low back pain; F03.90 Unspecified dementia, unspecified severity, without behavioral disturbance, psychotic disturbance, mood disturbance, and anxiety; I10 Essential (primary) hypertension; R94.31 Abnormal electrocardiogram [ECG] [EKG]; F17.210 Nicotine dependence, cigarettes, uncomplicated; R64 Cachexia; N17.9 Acute kidney failure, unspecified

== ENCOUNTER 2018-12-04 18:35 | Inpatient (IN) ==
--- NOTE | 2018-12-04 19:51 | ED ---
HPI General Chief complaint: Recheck/Abnormal Lab/Rx Stated complaint: Medical/Xfer from [facility]R Time Seen by Provider: 12/04/18 19:47 History of Present Illness HPI narrative: This is a 63-year-old male who presents from [facility] rehabilitation for evaluation of low hemoglobin. The patient had lab work at [facility] rehab today which revealed a hemoglobin of 6.5. According to chart review the patient was just discharged from [facility] yesterday after being admitted for altered mental status, dehydration and hypernatremia. He has a history of CVA with residual left-sided weakness/paralysis, dysphasia with G- tube, hypertension, hyperlipidemia, insulin-dependent diabetes, and he is on Xarelto according the chart review. The patient is a poor historian but during review of systems he is denying any pain, lightheadedness, shortness of breath. Related Data Home Medications Medication Instructions Recorded Confirmed amlodipine 10 mg FEEDING TUBE DAILY 06/27/18 12/04/18 ferrous sulfate 325 mg FEEDING TUBE DAILY 06/27/18 12/04/18 lisinopril 20 mg FEEDING TUBE BID 06/27/18 12/04/18 atorvastatin [Lipitor] 20 mg FEEDING TUBE HS 07/03/18 12/04/18 magnesium citrate 296 ml FEEDING TUBE DAILY PRN 07/03/18 12/04/18 magnesium hydroxide [Milk of 30 ml FEEDING TUBE DAILY PRN 07/03/18 12/04/18 Magnesia] mirtazapine [Remeron SolTab] 15 mg FEEDING TUBE HS 10/17/18 12/04/18 Saccharomyces boulardii 250 mg FEEDING TUBE BID 10/26/18 12/04/18 metoprolol tartrate 25 mg FEEDING TUBE BID 10/26/18 12/04/18 insulin aspart U-100 [Novolog 8 unit SUB-Q ACHS 11/28/18 12/04/18 U-100 Insulin aspart] rivaroxaban [Xarelto] 20 mg G-TUBE QPM 11/28/18 12/04/18 acetaminophen 650 mg FEEDING TUBE Q4H PRN 12/04/18 12/04/18 Previous Rx's Medication Instructions Recorded insulin detemir U-100 [Levemir 10 unit SUB-Q BID ml 06/30/18 U-100 Insulin] aspirin 325 mg G-TUBE DAILY tab 07/08/18 tamsulosin 0.4 mg PO DAILY cap 07/08/18 lansoprazole [Prevacid SoluTab] 30 mg FEEDING TUBE BID #60 tab 07/14/18 quetiapine 25 mg G-TUBE TID PRN #10 tab 12/03/18 Allergies Allergy/AdvReac Type Severity Reaction Status Date / Time No Known Allergies Allergy Verified 10/26/18 06:03 Review of Systems ROS Unobtainable ROS Unobtainable: unobtainable due to mental status (Review of systems is limited) COUNTS INCLUDE 234 BEDS AT THE [facility] Social History Social History Substance History: No History of Abuse Second Hand Smoke Exposure: No Smoking Status: Former smoker Tobacco Type: Cigarettes How Often Do You Have a Drink Containing Alcohol: Never Recent Travel in [facility] within the Last 8 Weeks: No Recent Out of Country Travel within the Last 8 Weeks: No Immunization History Tetanus Immunization: <5 Years Exam Narrative Exam Narrative: GENERAL: This is a chronically ill appearing male who is in no acute distress. He is alert to person and place but not time. SKIN: Warm and dry. HEAD: Atraumatic. Normocephalic. EYES: Pupils equal and round. No scleral icterus. No injection or drainage. ENT: No nasal bleeding or discharge. Mucous membranes pink and moist. NECK: Trachea midline. No JVD. CARDIOVASCULAR: Regular rate and rhythm. No murmur appreciated. RESPIRATORY: No accessory muscle use. Clear to auscultation. Breath sounds equal bilaterally. GASTROINTESTINAL: Abdomen soft, non-tender, nondistended. Hepatic and splenic margins not palpable. Rectal examination reveals mucousy brown stool which is Hemoccult positive. MUSCULOSKELETAL: No obvious deformities. No clubbing. No cyanosis. No edema. NEUROLOGICAL: Awake and alert. No obvious cranial nerve deficits. Left arm is contractured. The left upper extremity is in a sling. PSYCHIATRIC: Appropriate mood and affect; insight and judgment normal. Procedures Hemaprompt Stool Procedural Steps Taken: specimen placed in appropriate test area, developer placed on specimen and control areas and controls appropriately positive and negative Hemaprompt Stool Result: positive Course Initial Documented Vital Signs Temperature 98 F 12/04/18 19:32 Pulse Rate 80 12/04/18 19:32 Respiratory Rate 18 12/04/18 19:32 Blood Pressure 147/73 H 02/08/19 19:32 Pulse Oximetry 100 12/04/18 19:32 Last Documented Vital Signs Temperature 97.4 F L 12/04/18 23:12 Pulse Rate 77 12/04/18 23:12 Respiratory Rate 18 12/04/18 23:12 Blood Pressure 115/44 L 12/04/18 23:12 Pulse Oximetry 100 12/04/18 23:12 Medical Decision Making MDM Narrative Medical decision making narrative: IV established, lab work obtained, the patient was given a Protonix bolus. A rectal examination was performed revealing brown stool which is Hemoccult positive. Lab work reveals a hemoglobin of 7.5 which is a two-point drop from December 01 which his hemoglobin was 9.5. He is anticoagulated on Xarelto. He will be given 1 unit of packed red blood cells and he will be admitted for further evaluation. Medical Screen Exam Complete: Yes Emergency Medical Condition: Yes Differential Diagnosis Differential Diagnosis: GI bleed, lab error, acute anemia, acute on chronic anemia Lab Data Result diagrams: 12/04/18 19:55 12/04/18 19:55 Lab Results 12/04/18 12/04/18 12/04/18 Range/Units 19:55 19:55 19:55 WBC 14.5 H (4.0-11.0) th/mm3 RBC 2.63 L (4.50-5.90) mil/mm3 Hgb 7.5 L (13.0-17.0) gm/dL Hct 23.3 L (39.0-51.0) % MCV 88.5 (80.0-100.0) fL MCH 28.4 (27.0-34.0) pg MCHC 32.1 (32.0-36.0) % RDW 17.4 H (11.6-17.2) % Plt Count 292 (150-450) th/mm3 MPV 9.9 (7.0-11.0) fL Neut % (Auto) 74.0 H (16.0-70.0) % Lymph % (Auto) 17.1 (9.0-44.0) % [place] % (Auto) 5.9 (0.0-8.0) % Eos % (Auto) 2.5 (0.0-4.0) % Baso % (Auto) 0.5 (0.0-2.0) % Neut # (Auto) 10.7 H (1.8-7.7) th/mm3 Lymph # (Auto) 2.5 (1.0-4.8) th/mm3 [place] # (Auto) 0.9 (0.0-0.9) th/mm3 Eos # (Auto) 0.4 (0.0-0.4) th/mm3 Baso # (Auto) 0.1 (0.0-0.2) th/mm3 WBC Differential . Differential Comment Auto diff final PT 10.9 (9.8-11.6) sec INR 1.1 Ratio APTT 29.9 (23.4-31.7) sec Sodium 142 (136-145) meq/L Potassium 4.1 (3.5-5.1) meq/L Chloride 107 (98-107) meq/L Carbon Dioxide 28.8 (21.0-32.0) meq/L Anion Gap 6 (5-15) meq/L BUN 22 H (7-18) mg/dL Creatinine 0.85 (0.60-1.30) mg/dL Estimated GFR Greater than 89 (>89) mL/min Random Glucose 90 D (74-106) mg/dL Calcium 8.5 (8.5-10.1) mg/dL Total Bilirubin 0.3 (0.2-1.0) mg/dL AST 17 (15-37) U/L ALT 16 (12-78) U/L Alkaline Phosphatase 120 H (45-117) U/L Total Protein 6.3 L (6.4-8.2) g/dL Albumin 2.7 L (3.4-5.0) g/dL Blood Type Antibody Screen MTS Gel Crossmatch 12/04/18 12/04/18 Range/Units 19:55 19:55 WBC (4.0-11.0) th/mm3 RBC (4.50-5.90) mil/mm3 Hgb (13.0-17.0) gm/dL Hct (39.0-51.0) % MCV (80.0-100.0) fL MCH (27.0-34.0) pg MCHC (32.0-36.0) % RDW (11.6-17.2) % Plt Count (150-450) th/mm3 MPV (7.0-11.0) fL Neut % (Auto) (16.0-70.0) % Lymph % (Auto) (9.0-44.0) % [place] % (Auto) (0.0-8.0) % Eos % (Auto) (0.0-4.0) % Baso % (Auto) (0.0-2.0) % Neut # (Auto) (1.8-7.7) th/mm3 Lymph # (Auto) (1.0-4.8) th/mm3 [place] # (Auto) (0.0-0.9) th/mm3 Eos # (Auto) (0.0-0.4) th/mm3 Baso # (Auto) (0.0-0.2) th/mm3 WBC Differential Differential Comment PT (9.8-11.6) sec INR Ratio APTT (23.4-31.7) sec Sodium (136-145) meq/L Potassium (3.5-5.1) meq/L Chloride (98-107) meq/L Carbon Dioxide (21.0-32.0) meq/L Anion Gap (5-15) meq/L BUN (7-18) mg/dL Creatinine (0.60-1.30) mg/dL Estimated GFR (>89) mL/min Random Glucose (74-106) mg/dL Calcium (8.5-10.1) mg/dL Total Bilirubin (0.2-1.0) mg/dL AST (15-37) U/L ALT (12-78) U/L Alkaline Phosphatase (45-117) U/L Total Protein (6.4-8.2) g/dL Albumin (3.4-5.0) g/dL Blood Type O Positive Antibody Screen Negative MTS Gel Crossmatch See Detail Discharge Plan Discharge Disposition Patient Disposition: ED Admit(ED Internal Use Only) Discharge Condition Condition: Stable Discharge Order Discharge Orders: ED Use Only Admit Order (Routine); Ordered 12/04/18 Ordered By: Camacho Anderson Discharge Details Diagnosis: GI bleed, Anemia Physicians Team ED Provider: Kentrell Mccoy ED Midlevel Provider: Camacho Anderson Primary Care Provider: UNKNOWN, Attending Provider: Arminda Zimmerman Other Providers: Tyrell Fraser Status ED Status: Left Department Discharge Information Discharge Date/Time: 12/04/18 23:13
[2018-12-04] MEDS ORDERED: Pantoprazole Inj 80 MG in Sodium Chlor 0.9% Inj 35 ML IV.SIG ONE (19:54)
[2018-12-04 20:37] LABS: Baso # (Auto) 0.1 th/mm3 (0.0-0.2); Baso % (Auto) 0.5 % (0.0-2.0); Eos # (Auto) 0.4 th/mm3 (0.0-0.4); Eos % (Auto) 2.5 % (0.0-4.0); Hematocrit 23.3 % (39.0-51.0); Hemoglobin 7.5 gm/dL (13.0-17.0); Lymph # (Auto) 2.5 th/mm3 (1.0-4.8); Lymph % (Auto) 17.1 % (9.0-44.0); Mean Corpuscular HGB Conc 32.1 % (32.0-36.0); Mean Corpuscular Hemoglobin 28.4 pg (27.0-34.0); Mean Corpuscular Volume 88.5 fL (80.0-100.0); Mean Platelet Volume 9.9 fL (7.0-11.0); Mono # (Auto) 0.9 th/mm3 (0.0-0.9); Mono % (Auto) 5.9 % (0.0-8.0); Neut # (Auto) 10.7 th/mm3 (1.8-7.7); Platelet Count 292 th/mm3 (150-450); Red Blood Count 2.63 mil/mm3 (4.50-5.90); Red Cell Distribution Width 17.4 % (11.6-17.2); White Blood Count 14.5 th/mm3 (4.0-11.0)
[2018-12-04 20:57] LABS: Albumin 2.7 g/dL (3.4-5.0); Anion Gap 6 meq/L (5-15); Aspartate Aminotransferase 17 U/L (15-37); Blood Urea Nitrogen 22 mg/dL (7-18); Calcium 8.5 mg/dL (8.5-10.1); Carbon Dioxide 28.8 meq/L (21.0-32.0); Chloride 107 meq/L (98-107); Glomerular Filtration Rate Greater Than 89 mL/min (>89); Glucose,Random 90 mg/dL (74-106); Potassium 4.1 meq/L (3.5-5.1); Sodium 142 meq/L (136-145)
[2018-12-04 21:00] LABS: Alanine Aminotransferase 16 U/L (12-78); Alkaline Phosphatase 120 U/L (45-117); Total Protein 6.3 g/dL (6.4-8.2)
[2018-12-04] MEDS ORDERED: Sodium Chlor 0.9% Inj 250 ML IV.SIG SCH (21:00)
[2018-12-04 21:02] LABS: Activated Partial Thrombo Time 29.9 sec (23.4-31.7); INR 1.1 Ratio; Prothrombin Time 10.9 sec (9.8-11.6)
[2018-12-04] MEDS ORDERED: Dextrose 50% in Water 50 ML Vial IV.PUSH PRN (21:39)
[2018-12-04] MEDS ORDERED: Bisacodyl 10 MG Supp RECTAL PRN (21:39)
--- NOTE | 2018-12-04 21:45 | P.HPIM ---
History of Present Illness Primary Care Physician: UNKNOWN History of Present Illness: This is a 63-year-old male with a PMH of HTN, Hyperlipidemia, DM, h/o CVA w/ Residual Left-Sided Hemiparesis and Dysphagia s/ p G-Tube who was sent to the ER from SNF for Hgb 6.5. Recent admit 11/28-12/03/18 for AMS thought to be secondary to dehydration, s/p eval by Psych w/ clearance to restart antipsychotic medications, was d/c'd to [facility]. Today w/ labs showing Hgb 6.5. Pt poor historian, unable to provide any history. On arrival, BP 147/73, HR 80, O2 sat 100% on RA, Afebrile. WBC 14.5. Hemoglobin 7.5, previously 9.6 on 12/01/2018. INR 1.1. Chemistry unremarkable. Hemoccult +. 1u pRBC ordered in ER, pending transfusion. Currently on Protonix gtt. Diagnosis (1) GI bleed: (2) Anemia: (3) DM (diabetes mellitus): (4) CVA (cerebral vascular accident): Inpatient Certification Inpatient Certification: I certify that the inpatient services were ordered in accordance with Medicare regulations governing the order. This includes certification that hospital inpatient services are reasonable and necessary and in the case of services not specified as inpatient-only under 42 CFR 419.22(n), that they are appropriately provided as inpatient services in accordance to with the 2-midnight benchmark under 43 CFR 412.3(e) Estimated Total Length of Stay (Days): 2 Plans for Post Hospital Care: Not yet determined Review of Systems PAST FAMILY HISTORY: Reviewed. No h/o DM or CAD ROS Unobtainable: unobtainable due to mental status PMFSH Social History Social History Substance History: No History of Abuse Second Hand Smoke Exposure: No Smoking Status: Former smoker Tobacco Type: Cigarettes How Often Do You Have a Drink Containing Alcohol: Never Recent Travel in [facility] within the Last 8 Weeks: No Recent Out of Country Travel within the Last 8 Weeks: No Immunization History Tetanus Immunization: <5 Years Medications and Allergies Allergies Allergy/AdvReac Type Severity Reaction Status Date / Time No Known Allergies Allergy Verified 10/26/18 06:03 Home Medications Medication Instructions Recorded Confirmed Type amlodipine 10 mg FEEDING TUBE DAILY 06/27/18 12/04/18 History ferrous sulfate 325 mg FEEDING TUBE DAILY 06/27/18 12/04/18 History lisinopril 20 mg FEEDING TUBE BID 06/27/18 12/04/18 History atorvastatin [Lipitor] 20 mg FEEDING TUBE HS 07/03/18 12/04/18 History magnesium citrate 296 ml FEEDING TUBE DAILY PRN 07/03/18 12/04/18 History magnesium hydroxide [Milk of 30 ml FEEDING TUBE DAILY PRN 07/03/18 12/04/18 History Magnesia] mirtazapine [Remeron SolTab] 15 mg FEEDING TUBE HS 10/17/18 12/04/18 History Saccharomyces boulardii 250 mg FEEDING TUBE BID 10/26/18 12/04/18 History metoprolol tartrate 25 mg FEEDING TUBE BID 10/26/18 12/04/18 History insulin aspart U-100 [Novolog 8 unit SUB-Q ACHS 11/28/18 12/04/18 History U-100 Insulin aspart] rivaroxaban [Xarelto] 20 mg G-TUBE QPM 11/28/18 12/04/18 History acetaminophen 650 mg FEEDING TUBE Q4H PRN 12/04/18 12/04/18 History Active Medications: Active Medications Sodium Chloride (Ns Inj) 250 mls @ 15 mls/hr IV.SIG ONCE JADA Stop: 12/05/18 13:39 Physical Exam Vital signs: Vital Signs 12/04/18 19:32 12/04/18 21:07 Temperature 98 F Pulse Rate 80 89 Respiratory Rate 18 18 Blood Pressure 147/73 H 140/78 Pulse Oximetry 100 99 Intake & Output 12/04/18 12/04/18 12/05/18 06:59 18:59 06:59 Weight 58.967 kg Narrative: PE: GENERAL: Middle-aged black male, frail, thin, chronically ill appearing in no acute distress, looks older than stated age.. SKIN: Focused skin assessment warm and dry. HEENT: PERRLA, EOMI. No scleral icterus or conjunctival pallor. No lid lag or facial droop. CARDIOVASCULAR: Regular rate and rhythm. No obvious murmurs to auscultation. No chest tenderness to palpation. RESPIRATORY: No obvious rhonchi or wheezing. Clear to auscultation. Breath sounds equal bilaterally. GASTROINTESTINAL: Abdomen soft, non-tender, nondistended. BS normal. MUSCULOSKELETAL: Extremities without clubbing, cyanosis, or edema. No obvious deformities. LUE in sling. NEUROLOGICAL: Awake, alert and oriented to person/place. No new focal neurologic deficits, chronic left-sided hemiparesis with contracture. Moving both upper and lower extremities spontaneously. PSYCHIATRIC: Appropriate mood and affect. Insight and judgment normal. Results Labs CBC & Chem 7: 12/04/18 19:55 12/04/18 19:55 Caprini VTE Risk Assessment Caprin VTE Risk Assessment: No/Low Risk (score <= 1) VTE Pharmacological Exception Reason: Active bleeding Caprini Risk Assessment Model: Point Value = 1 Point Value = 2 Point Value = 3 Point Value = 5 Age 41-60 Minor surgery BMI > 25 kg/m2 Swollen legs Varicose veins or History of unexplained or recurrent spontaneous Oral contraceptives or hormone replacement Sepsis (< 1 month) Serious lung disease, including pneumonia (< 1 month) Abnormal pulmonary function Acute myocardial infarction Congestive heart failure (< 1 month) History of inflammatory bowel disease Medical patient at bed rest Age 61-74 Arthroscopic surgery Major open surgery (> 45 min) Laparoscopic surgery (> 45 min) Malignancy Confined to bed (> 72 hours) Immobilizing plaster cast Central venous access Age >= 75 History of VTE Family history of VTE Factor V Leiden Prothrombin 27059C Lupus anticoagulant Anticardiolipin antibodies Elevated serum homocysteine Heparin-induced thrombocytopenia Other congenital or acquired thrombophilia Stroke (< 1 month) Elective arthroplasty Hip, pelvis, or leg fracture Acute spinal cord injury (< 1 month) Prophylaxis Regimen: Total Risk Factor Score Risk Level Prophylaxis Regimen 0-1 Low Early ambulation 2 Moderate Order ONE of the following: *Sequential Compression Device (SCD) *Heparin 5000 units SQ BID 3-4 Higher Order ONE of the following medications: *Heparin 5000 units SQ TID *Enoxaparin/Lovenox 40 mg SQ daily (WT < 150 kg, CrCl > 30 mL/min) *Enoxaparin/Lovenox 30 mg SQ daily (WT < 150 kg, CrCl > 10-29 mL/min) *Enoxaparin/Lovenox 30 mg SQ BID (WT < 150 kg, CrCl > 30 mL/min) AND/OR *Sequential Compression Device (SCD) 5 or more Highest Order ONE of the following medications: *Heparin 5000 units SQ TID (Preferred with Epidurals) *Enoxaparin/Lovenox 40 mg SQ daily (WT < 150 kg, CrCl > 30 mL/min) *Enoxaparin/Lovenox 30 mg SQ daily (WT < 150 kg, CrCl > 10-29 mL/min) *Enoxaparin/Lovenox 30 mg SQ BID (WT < 150 kg, CrCl > 30 mL/min) AND *Sequential Compression Device (SCD) Assessment and Plan (1) GI bleed: Code(s): K92.2 - Gastrointestinal hemorrhage, unspecified Status: Acute (2) Anemia: Code(s): D64.9 - Anemia, unspecified Status: Acute (3) DM (diabetes mellitus): Code(s): E11.9 - Type 2 diabetes mellitus without complications Status: Acute (4) CVA (cerebral vascular accident): Code(s): I63.9 - Cerebral infarction, unspecified Status: Acute Plan A/P: 1. GI Bleed: Hemoccult +, started on Protonix gtt-will continue, Consult GI for further eval/recommendations, NPO after midnight for likely EGD/ Colonoscopy. Hold Xarelto and ASA. 2. Anemia: secondary to above, Hgb 7.5, previously 9.6 on 12/01/2018. 1u pRBC ordered, pending transfusion, repeat Hgb/Hct 3. H/o CVA: w/ residual Left-sided hemiparesis and dysphagia s/p G-tube placement, no new deficits noted, continue PT. Hold ASA and Xarelto as above for now. 4. DM: Sliding scale w/ Accu-Cheks 5. DVT Prophylaxis: Pharmacologic contraindication due to acute GI bleed. 6. Social work for DC planning as needed. 7. Case discussed at length with the ER physician, labs/records/imaging reviewed by me. _ (1) DM (diabetes mellitus) Qualifiers: Chronic kidney disease stage: Diabetes mellitus complication detail: Diabetes mellitus complication status: Diabetes mellitus logistics account manager insulin use : Diabetes mellitus macular edema: Diabetes mellitus type: Diabetic retinopathy severity: Laterality: Proliferative retinopathy type: (2) GI bleed Qualifiers: GI bleed type/associated pathology: Gastritis type: (3) Anemia Qualifiers: Anemia type: Bone marrow failure anemia type: Chronic kidney disease stage : Folate deficiency anemia type: Hemolytic anemia type: Iron deficiency anemia type: Other causes of anemia: Vitamin B12 deficiency anemia type: (4) CVA (cerebral vascular accident) Qualifiers: CVA mechanism: Laterality of affected vessel: Precerebral and cerebral artery:
[2018-12-05] MEDS: Sod Chloride 0.9% Inj 1,000 ML IV.CONT SCH ×2 (02:11→08:49)
[2018-12-05 06:16] LABS: Baso # (Auto) 0.1 th/mm3 (0.0-0.2); Baso % (Auto) 0.6 % (0.0-2.0); Eos # (Auto) 0.5 th/mm3 (0.0-0.4); Eos % (Auto) 3.5 % (0.0-4.0); Hematocrit 33.3 % (39.0-51.0); Hemoglobin 10.9 gm/dL (13.0-17.0); Lymph # (Auto) 2.3 th/mm3 (1.0-4.8); Lymph % (Auto) 17.4 % (9.0-44.0); Mean Corpuscular HGB Conc 32.7 % (32.0-36.0); Mean Corpuscular Hemoglobin 28.6 pg (27.0-34.0); Mean Corpuscular Volume 87.4 fL (80.0-100.0); Mean Platelet Volume 9.6 fL (7.0-11.0); Mono % (Auto) 7.6 % (0.0-8.0); Neut # (Auto) 9.6 th/mm3 (1.8-7.7); Neut % (Auto) 70.9 % (16.0-70.0); Platelet Count 275 th/mm3 (150-450); Red Blood Count 3.81 mil/mm3 (4.50-5.90); Red Cell Distribution Width 16.6 % (11.6-17.2); White Blood Count 13.5 th/mm3 (4.0-11.0)
[2018-12-05 06:28] LABS: Alanine Aminotransferase 18 U/L (12-78); Albumin 2.8 g/dL (3.4-5.0); Anion Gap 10 meq/L (5-15); Aspartate Aminotransferase 17 U/L (15-37); Blood Urea Nitrogen 17 mg/dL (7-18); Calcium 8.3 mg/dL (8.5-10.1); Carbon Dioxide 26.4 meq/L (21.0-32.0); Chloride 111 meq/L (98-107); Glomerular Filtration Rate Greater Than 89 mL/min (>89); Glucose,Random 84 mg/dL (74-106); Sodium 147 meq/L (136-145)
[2018-12-05 06:30] LABS: Alkaline Phosphatase 120 U/L (45-117); Total Protein 6.6 g/dL (6.4-8.2)
[2018-12-05 07:21] LABS: Acanthocytes Occ; Eosinophils 2 % (0-4); Lymphocytes 18 % (9-44); Monocytes 2 % (0-8); Myelocytes 3 % (0-0)
[2018-12-05 07:22] LABS: Platelet Estimate Normal (Normal); Platelet Morphology Normal (Normal)
[2018-12-05] MEDS: Insulin NovoLOG Aspart Correctional Sugar Inj SQ SCH ×4 (08:00→20:11)
[2018-12-05] MEDS: Senna/Docusate Sodium 8.6/50 MG Tablet PO SCH ×2 (09:35→20:07)
--- NOTE | 2018-12-05 11:12 | P.CONGI ---
History of Present Illness Consult date: 12/05/18 Consult reason: GI bleed Chief complaint: Acute Anemia, GI bleed History of Present Illness: This is a 63-year-old male with a PMH of HTN, Hyperlipidemia, DM, h/o CVA w/ Residual Left-Sided Hemiparesis and Dysphagia s/p G-Tube who was sent to the ER from SNF for Hgb 6.5. Pt poor historian, unable to provide any history. Patient was found Hemoccult +. He is s/p Blood transfusion, hgb currently is 10.9. Patient denies active bleed. Currently on Protonix gtt. <Cole Yoo - Last Filed: 12/05/18 11:16> Review of Systems All other systems reviewed negative except as stated in HPI <Cole Yoo - Last Filed: 12/05/18 11:16> PMFSH - History History Provided By: Patient - Medical History Medical History: Medical History (Last Reviewed 12/04/18 @ 19:34 by Madison Cerda) Stroke (Acute) Hyperlipemia (Acute) Anemia (Acute) HTN (hypertension) (Acute) Diabetes mellitus (Acute) MDRO (multiple drug resistant organisms) resistance Onset Date: ~08/18/18 - Surgical History Surgical History: Surgical History (Last Reviewed 12/04/18 @ 19:34 by Madison Cerda) History of tonsillectomy S/P percutaneous endoscopic gastrostomy (PEG) tube placement - Family History Family History: Family History (Last Reviewed 12/03/18 @ 08:31 by Ayleen Hernandez) Mother CVA (cerebral vascular accident) HTN (hypertension) - Tobacco History Second Hand Smoke Exposure: No Smoking Status: Former smoker Tobacco Type: Cigarettes - Alcohol History How Often Do You Have a Drink Containing Alcohol: Never - Substance Use History Substance History: No History of Abuse - Travel History Recent Travel in the [place] Within the Last 8 Weeks: No Recent Travel Out of the Country Within the Last 8 Weeks: No - Immunization History Tetanus Immunization: <5 Years <Cole Yoo - Last Filed: 12/05/18 11:16> - Medical History Medical History: Medical History (Last Reviewed 12/04/18 @ 19:34 by Madison Cerda) Stroke (Acute) Hyperlipemia (Acute) Anemia (Acute) HTN (hypertension) (Acute) Diabetes mellitus (Acute) MDRO (multiple drug resistant organisms) resistance Onset Date: ~08/18/18 - Surgical History Surgical History: Surgical History (Last Reviewed 12/04/18 @ 19:34 by Madison Cerda) History of tonsillectomy S/P percutaneous endoscopic gastrostomy (PEG) tube placement - Family History Family History: Family History (Last Reviewed 12/03/18 @ 08:31 by Ayleen Hernandez) Mother CVA (cerebral vascular accident) HTN (hypertension) <Tyrell Fraser - Last Filed: 12/05/18 11:56> Medications and Allergies Active Medications: Active Medications Al Hydroxide/Mg Hydroxide (Milk Of Magnesia Liq) 30 ml PO Q12H PRN PRN Reason: Mild Constipation Bisacodyl (Dulcolax Supp) 10 mg RECTAL DAILY PRN PRN Reason: SEVERE CONSITIPATION Dextrose (D50w Vial) 50 ml IV.PUSH UNSCH PRN PRN Reason: PER HYPOGLYCEMIA PROTOCOL Glucagon (Glucagon Inj) 1 mg OTHER PRN PRN PRN Reason: for Hypoglycemia Protocol Sodium Chloride (Ns Inj) 250 mls @ 15 mls/hr IV.SIG ONCE [facility] Stop: 12/05/18 13:39 Last Admin: 12/04/18 23:09 Dose: Not Given Insulin Aspart (Novolog Insulin Correctional Sugar Inj) 0 unit SQ ACHS [facility]; Protocol Last Admin: 12/05/18 08:00 Dose: Not Given Lactulose (Lactulose Liq) 30 ml PO DAILY PRN PRN Reason: SEVERE CONSITIPATION Mirtazapine (Remeron Soltab Odt) 15 mg G-TUBE HS [facility] Ondansetron HCl (Zofran Inj) 4 mg IV.PUSH Q6H PRN PRN Reason: NAUSEA OR VOMITING Senna/Docusate Sodium (Claudia-Colace) 1 tab PO BID [facility] Last Admin: 12/05/18 09:35 Dose: 1 tab Sennosides (Senokot) 17.2 mg PO Q12H PRN PRN Reason: Moderate Constipation Sodium Chloride (Ns Flush) 2 ml IV.FLUSH BID [facility] Last Admin: 12/05/18 08:49 Dose: Not Given Sodium Chloride (Ns Flush) 2 ml IV.FLUSH PRN PRN PRN Reason: FLUSH AFTER USING IV ACCESS <Cole Yoo - Last Filed: 12/05/18 11:16> Active Medications: Active Medications Al Hydroxide/Mg Hydroxide (Milk Of Magnesia Liq) 30 ml PO Q12H PRN PRN Reason: Mild Constipation Bisacodyl (Dulcolax Supp) 10 mg RECTAL DAILY PRN PRN Reason: SEVERE CONSITIPATION Dextrose (D50w Vial) 50 ml IV.PUSH UNSCH PRN PRN Reason: PER HYPOGLYCEMIA PROTOCOL Glucagon (Glucagon Inj) 1 mg OTHER PRN PRN PRN Reason: for Hypoglycemia Protocol Sodium Chloride (Ns Inj) 250 mls @ 15 mls/hr IV.SIG ONCE [facility] Stop: 12/05/18 13:39 Last Admin: 12/04/18 23:09 Dose: Not Given Insulin Aspart (Novolog Insulin Correctional Sugar Inj) 0 unit SQ ACHS [facility]; Protocol Last Admin: 12/05/18 08:00 Dose: Not Given Lactulose (Lactulose Liq) 30 ml PO DAILY PRN PRN Reason: SEVERE CONSITIPATION Mirtazapine (Remeron Soltab Odt) 15 mg G-TUBE [facility] Ondansetron HCl (Zofran Inj) 4 mg IV.PUSH Q6H PRN PRN Reason: NAUSEA OR VOMITING Polyethylene Glycol/Electrolytes (Colyte Liq) 4,000 ml PO ONCE ONE Stop: 12/06/18 16:01 Senna/Docusate Sodium (Claudia-Colace) 1 tab PO BID [facility] Last Admin: 12/05/18 09:35 Dose: 1 tab Sennosides (Senokot) 17.2 mg PO Q12H PRN PRN Reason: Moderate Constipation Sodium Chloride (Ns Flush) 2 ml IV.FLUSH BID [facility] Last Admin: 12/05/18 08:49 Dose: Not Given Sodium Chloride (Ns Flush) 2 ml IV.FLUSH PRN PRN PRN Reason: FLUSH AFTER USING IV ACCESS <Tyrell Fraser - Last Filed: 12/05/18 11:56> Allergies Allergy/AdvReac Type Severity Reaction Status Date / Time No Known Allergies Allergy Verified 10/26/18 06:03 Home Medications Medication Instructions Recorded Confirmed Type amlodipine 10 mg FEEDING TUBE DAILY 06/27/18 12/04/18 History ferrous sulfate 325 mg FEEDING TUBE DAILY 06/27/18 12/04/18 History lisinopril 20 mg FEEDING TUBE BID 06/27/18 12/04/18 History atorvastatin [Lipitor] 20 mg FEEDING TUBE HS 07/03/18 12/04/18 History magnesium citrate 296 ml FEEDING TUBE DAILY PRN 07/03/18 12/04/18 History magnesium hydroxide [Milk of 30 ml FEEDING TUBE DAILY PRN 07/03/18 12/04/18 History Magnesia] mirtazapine [Remeron SolTab] 15 mg FEEDING TUBE HS 10/17/18 12/04/18 History Saccharomyces boulardii 250 mg FEEDING TUBE BID 10/26/18 12/04/18 History metoprolol tartrate 25 mg FEEDING TUBE BID 10/26/18 12/04/18 History insulin aspart U-100 [Novolog 8 unit SUB-Q ACHS 11/28/18 12/04/18 History U-100 Insulin aspart] rivaroxaban [Xarelto] 20 mg G-TUBE QPM 11/28/18 12/04/18 History acetaminophen 650 mg FEEDING TUBE Q4H PRN 12/04/18 12/04/18 History Exam Vital signs: Vital Signs 12/04/18 19:32 12/04/18 21:07 12/04/18 22:08 Temperature 98 F 98 F Pulse Rate 80 89 86 Respiratory Rate 18 18 18 Blood Pressure 147/73 H 140/78 138/78 Pulse Oximetry 100 99 12/04/18 22:21 12/04/18 22:44 12/04/18 23:12 Temperature 98.4 F 98 F 97.4 F L Pulse Rate 74 75 77 Respiratory Rate 18 18 18 Blood Pressure 146/72 H 140/80 115/44 L Pulse Oximetry 100 12/05/18 08:00 Temperature 97.8 F Pulse Rate 76 Respiratory Rate 16 Blood Pressure 141/74 H Pulse Oximetry 98 Intake & Output 12/04/18 12/05/18 12/05/18 18:59 06:59 18:59 Intake Total 35 / 35 1000 / 1000 Balance 35 / 35 1000 / 1000 Weight 43.4 kg Intake: IV 35 / 35 1000 / 1000 NS Inj 1,000 ML @ 100 mls/hr IV 1000 / 1000 .CONT .Q10H [facility] Rx#:[id number] Protonix Inj 80 MG In NS Inj 35 35 / 35 ML @ 420 mls/hr IV.SIG BOLUS ONE Rx#:[id number] Intake (Blood Product) Amt 0 / 0 Rbc As-3 Leukoreduced Unit 0 / 0 [id number] Other: # Incontinent Voids 1 Weight On Admission 43.4 kg - Constitutional no acute distress - Routine HEENT Exam Head: Present: normocephalic - Routine Respiratory Exam Present: CTA bilaterally - Routine Cardiovascular Exam Present: RRR - Routine Abdominal Exam Present: soft, normoactive bowel sounds. Absent: tenderness, distended Comments: PEG tube - Routine Extremities Exam Comments: Contracted - Routine Skin Exam Present: intact, dry - Routine Neurological Exam Present: alert <Cole Yoo - Last Filed: 12/05/18 11:16> Vital signs: Vital Signs 12/04/18 19:32 12/04/18 21:07 12/04/18 22:08 Temperature 98 F 98 F Pulse Rate 80 89 86 Respiratory Rate 18 18 18 Blood Pressure 147/73 H 140/78 138/78 Pulse Oximetry 100 99 12/04/18 22:21 12/04/18 22:44 12/04/18 23:12 Temperature 98.4 F 98 F 97.4 F L Pulse Rate 74 75 77 Respiratory Rate 18 18 18 Blood Pressure 146/72 H 140/80 115/44 L Pulse Oximetry 100 12/05/18 08:00 12/05/18 11:53 Temperature 97.8 F 97.9 F Pulse Rate 76 80 Respiratory Rate 16 17 Blood Pressure 141/74 H 150/70 H Pulse Oximetry 98 99 Intake & Output 12/04/18 12/05/18 12/05/18 18:59 06:59 18:59 Intake Total 35 / 35 1000 / 1000 Balance 35 / 35 1000 / 1000 Weight 43.4 kg Intake: IV 35 / 35 1000 / 1000 NS Inj 1,000 ML @ 100 mls/hr IV 1000 / 1000 .CONT .Q10H [facility] Rx#:[id number] Protonix Inj 80 MG In NS Inj 35 35 / 35 ML @ 420 mls/hr IV.SIG BOLUS ONE Rx#:[id number] Intake (Blood Product) Amt 0 / 0 Rbc As-3 Leukoreduced Unit 0 / 0 [id number] Other: # Incontinent Voids 1 Weight On Admission 43.4 kg <Tyrell Fraser - Last Filed: 12/05/18 11:56> Results - Labs CBC & Chem 7: 12/05/18 05:26 12/05/18 05:26 Labs: Laboratory Results - last 24 hr 12/04/18 12/04/18 12/04/18 19:55 19:55 19:55 WBC 14.5 H RBC 2.63 L Hgb 7.5 L Hct 23.3 L MCV 88.5 MCH 28.4 MCHC 32.1 RDW 17.4 H Plt Count 292 MPV 9.9 Prelim Diff (Auto) Neut % (Auto) 74.0 H Lymph % (Auto) 17.1 [place] % (Auto) 5.9 Eos % (Auto) 2.5 Baso % (Auto) 0.5 Neut # (Auto) 10.7 H Lymph # (Auto) 2.5 [place] # (Auto) 0.9 Eos # (Auto) 0.4 Baso # (Auto) 0.1 WBC Differential . Seg Neuts % (Manual) Lymphocytes % (Manual) Monocytes % (Manual) Eosinophils % (Manual) Basophils % (Manual) Myelocytes % (Man) Abs Neuts (Manual) Differential Comment Auto diff final Platelet Estimate Platelet Morphology Acanthocytes (Spur) Keratocytes PT 10.9 INR 1.1 APTT 29.9 Sodium 142 Potassium 4.1 Chloride 107 Carbon Dioxide 28.8 Anion Gap 6 BUN 22 H Creatinine 0.85 Estimated GFR Greater than 89 POC Glucose Random Glucose 90 D Calcium 8.5 Total Bilirubin 0.3 AST 17 ALT 16 Alkaline Phosphatase 120 H Total Protein 6.3 L Albumin 2.7 L Blood Type Antibody Screen MTS Gel Crossmatch 12/04/18 12/04/18 12/05/18 19:55 19:55 05:26 WBC 13.5 H RBC 3.81 L Hgb 10.9 L D Hct 33.3 L MCV 87.4 MCH 28.6 MCHC 32.7 RDW 16.6 Plt Count 275 MPV 9.6 Prelim Diff (Auto) Slide review pending Neut % (Auto) 70.9 H Lymph % (Auto) 17.4 [place] % (Auto) 7.6 Eos % (Auto) 3.5 Baso % (Auto) 0.6 Neut # (Auto) 9.6 H Lymph # (Auto) 2.3 [place] # (Auto) 1.0 H Eos # (Auto) 0.5 H Baso # (Auto) 0.1 WBC Differential Manual diff final Seg Neuts % (Manual) 74 H Lymphocytes % (Manual) 18 Monocytes % (Manual) 2 Eosinophils % (Manual) 2 Basophils % (Manual) 1 Myelocytes % (Man) 3 H Abs Neuts (Manual) 10.4 H Differential Comment . Platelet Estimate Normal Platelet Morphology Normal Acanthocytes (Spur) Occ H Keratocytes Occ H PT INR APTT Sodium Potassium Chloride Carbon Dioxide Anion Gap BUN Creatinine Estimated GFR POC Glucose Random Glucose Calcium Total Bilirubin AST ALT Alkaline Phosphatase Total Protein Albumin Blood Type O Positive Antibody Screen Negative MTS Gel Crossmatch See Detail 12/05/18 12/05/18 05:26 08:14 WBC RBC Hgb Hct MCV MCH MCHC RDW Plt Count MPV Prelim Diff (Auto) Neut % (Auto) Lymph % (Auto) [place] % (Auto) Eos % (Auto) Baso % (Auto) Neut # (Auto) Lymph # (Auto) [place] # (Auto) Eos # (Auto) Baso # (Auto) WBC Differential Seg Neuts % (Manual) Lymphocytes % (Manual) Monocytes % (Manual) Eosinophils % (Manual) Basophils % (Manual) Myelocytes % (Man) Abs Neuts (Manual) Differential Comment Platelet Estimate Platelet Morphology Acanthocytes (Spur) Keratocytes PT INR APTT Sodium 147 H Potassium 4.0 Chloride 111 H Carbon Dioxide 26.4 Anion Gap 10 BUN 17 Creatinine 0.73 Estimated GFR Greater than 89 POC Glucose 101 Random Glucose 84 Calcium 8.3 L Total Bilirubin 1.0 AST 17 ALT 18 Alkaline Phosphatase 120 H Total Protein 6.6 Albumin 2.8 L Blood Type Antibody Screen MTS Gel Crossmatch <Cole Yoo - Last Filed: 12/05/18 11:16> - Labs CBC & Chem 7: 12/05/18 05:26 12/05/18 05:26 Labs: Laboratory Results - last 24 hr 12/04/18 12/04/18 12/04/18 19:55 19:55 19:55 WBC 14.5 H RBC 2.63 L Hgb 7.5 L Hct 23.3 L MCV 88.5 MCH 28.4 MCHC 32.1 RDW 17.4 H Plt Count 292 MPV 9.9 Prelim Diff (Auto) Neut % (Auto) 74.0 H Lymph % (Auto) 17.1 [place] % (Auto) 5.9 Eos % (Auto) 2.5 Baso % (Auto) 0.5 Neut # (Auto) 10.7 H Lymph # (Auto) 2.5 [place] # (Auto) 0.9 Eos # (Auto) 0.4 Baso # (Auto) 0.1 WBC Differential . Seg Neuts % (Manual) Lymphocytes % (Manual) Monocytes % (Manual) Eosinophils % (Manual) Basophils % (Manual) Myelocytes % (Man) Abs Neuts (Manual) Differential Comment Auto diff final Platelet Estimate Platelet Morphology Acanthocytes (Spur) Keratocytes PT 10.9 INR 1.1 APTT 29.9 Sodium 142 Potassium 4.1 Chloride 107 Carbon Dioxide 28.8 Anion Gap 6 BUN 22 H Creatinine 0.85 Estimated GFR Greater than 89 POC Glucose Random Glucose 90 D Calcium 8.5 Total Bilirubin 0.3 AST 17 ALT 16 Alkaline Phosphatase 120 H Total Protein 6.3 L Albumin 2.7 L Blood Type Antibody Screen MTS Gel Crossmatch 12/04/18 12/04/18 12/05/18 19:55 19:55 05:26 WBC 13.5 H RBC 3.81 L Hgb 10.9 L D Hct 33.3 L MCV 87.4 MCH 28.6 MCHC 32.7 RDW 16.6 Plt Count 275 MPV 9.6 Prelim Diff (Auto) Slide review pending Neut % (Auto) 70.9 H Lymph % (Auto) 17.4 [place] % (Auto) 7.6 Eos % (Auto) 3.5 Baso % (Auto) 0.6 Neut # (Auto) 9.6 H Lymph # (Auto) 2.3 [place] # (Auto) 1.0 H Eos # (Auto) 0.5 H Baso # (Auto) 0.1 WBC Differential Manual diff final Seg Neuts % (Manual) 74 H Lymphocytes % (Manual) 18 Monocytes % (Manual) 2 Eosinophils % (Manual) 2 Basophils % (Manual) 1 Myelocytes % (Man) 3 H Abs Neuts (Manual) 10.4 H Differential Comment . Platelet Estimate Normal Platelet Morphology Normal Acanthocytes (Spur) Occ H Keratocytes Occ H PT INR APTT Sodium Potassium Chloride Carbon Dioxide Anion Gap BUN Creatinine Estimated GFR POC Glucose Random Glucose Calcium Total Bilirubin AST ALT Alkaline Phosphatase Total Protein Albumin Blood Type O Positive Antibody Screen Negative MTS Gel Crossmatch See Detail 12/05/18 12/05/18 05:26 08:14 WBC RBC Hgb Hct MCV MCH MCHC RDW Plt Count MPV Prelim Diff (Auto) Neut % (Auto) Lymph % (Auto) [place] % (Auto) Eos % (Auto) Baso % (Auto) Neut # (Auto) Lymph # (Auto) [place] # (Auto) Eos # (Auto) Baso # (Auto) WBC Differential Seg Neuts % (Manual) Lymphocytes % (Manual) Monocytes % (Manual) Eosinophils % (Manual) Basophils % (Manual) Myelocytes % (Man) Abs Neuts (Manual) Differential Comment Platelet Estimate Platelet Morphology Acanthocytes (Spur) Keratocytes PT INR APTT Sodium 147 H Potassium 4.0 Chloride 111 H Carbon Dioxide 26.4 Anion Gap 10 BUN 17 Creatinine 0.73 Estimated GFR Greater than 89 POC Glucose 101 Random Glucose 84 Calcium 8.3 L Total Bilirubin 1.0 AST 17 ALT 18 Alkaline Phosphatase 120 H Total Protein 6.6 Albumin 2.8 L Blood Type Antibody Screen MTS Gel Crossmatch <Tyrell Fraser - Last Filed: 12/05/18 11:56> Assessment and Plan - Plan - Anemia/heme (+) stools- hgb is 7.5 on admission, no active bleeding reported, patient is on Xarelto - DM, h/o CVA w/ Residual Left-Sided Hemiparesis and Dysphagia s/p G- Plan: - TF - Clears Friday - EGD/colonoscopy on Friday - Golytely on Friday - Hold Xarelto - Monitor hh - Transfuse as needed - Cont. PPI - Patient seen and examined by Dr. Fraser and myself and this note is written on his behalf <Cole Yoo - Last Filed: 12/05/18 11:16> - Attending Attestation I have seen and examined the patient and reviewed the relevant portions of the chart and discussed the patient's current complaints, results and findings with the GOVERNMENT SERVICE EXECUTIVE. We have reviewed the therapeutic plan for the patient. I agree with the above assessment and recommendations as documented above. Patient will require upper endoscopy and colonoscopy on a routine basis. Be scheduled for Friday. <Tyrell Fraser - Last Filed: 12/05/18 11:56>
--- NOTE | 2018-12-05 14:36 | P.PNIM ---
Subjective Interval history: States that he has chronic left sided weakness. Usually bedbound. Does report he does swallow and does take solid foods at times. Tells me it depends on how he is feeling on the type of consistency of food he can tolerate. He denies any abdominal pain. Physical Exam Vital signs: Vital Signs 12/04/18 19:32 12/04/18 21:07 12/04/18 22:08 Temperature 98 F 98 F Pulse Rate 80 89 86 Respiratory Rate 18 18 18 Blood Pressure 147/73 H 140/78 138/78 Pulse Oximetry 100 99 12/04/18 22:21 12/04/18 22:44 12/04/18 23:12 Temperature 98.4 F 98 F 97.4 F L Pulse Rate 74 75 77 Respiratory Rate 18 18 18 Blood Pressure 146/72 H 140/80 115/44 L Pulse Oximetry 100 12/05/18 08:00 12/05/18 11:53 Temperature 97.8 F 97.9 F Pulse Rate 76 80 Respiratory Rate 16 17 Blood Pressure 141/74 H 150/70 H Pulse Oximetry 98 99 Intake & Output 12/04/18 12/05/18 12/05/18 18:59 06:59 18:59 Intake Total 35 / 35 1000 / 1000 Balance 35 / 35 1000 / 1000 Weight 43.4 kg Intake: IV 35 / 35 1000 / 1000 NS Inj 1,000 ML @ 100 mls/hr IV 1000 / 1000 .CONT .Q10H [facility] Rx#:[id number] Protonix Inj 80 MG In NS Inj 35 35 / 35 ML @ 420 mls/hr IV.SIG BOLUS ONE Rx#:[id number] Intake (Blood Product) Amt 0 / 0 Rbc As-3 Leukoreduced Unit 0 / 0 [id number] Other: # Incontinent Voids 1 Weight On Admission 43.4 kg Narrative: PE: GENERAL: Middle-aged black male, frail, thin, chronically ill appearing in no acute distress, looks older than stated age lying in bed CARDIOVASCULAR: Regular rate and rhythm. No obvious murmurs to auscultation. No chest tenderness to palpation. RESPIRATORY: No obvious rhonchi or wheezing. Clear to auscultation. Breath sounds equal bilaterally. GASTROINTESTINAL: Abdomen soft, non-tender, nondistended. BS normal. G-tube in place MUSCULOSKELETAL: Extremities without clubbing, cyanosis, or edema. Atrophy lower extremity NEUROLOGICAL: Awake, alert and oriented to person/place. No new focal neurologic deficits, chronic left-sided hemiparesis with contracture. Moving both right upper and lower extremities spontaneously. Results Labs CBC & Chem 7: 12/05/18 05:26 12/05/18 05:26 Assessment and Plan (1) GI bleed: Code(s): K92.2 - Gastrointestinal hemorrhage, unspecified Status: Acute (2) DM (diabetes mellitus): Code(s): E11.9 - Type 2 diabetes mellitus without complications Status: Chronic (3) Anemia due to gastrointestinal blood loss: Code(s): D50.0 - Iron deficiency anemia secondary to blood loss (chronic) Status: Acute Plan 63-year-old male with a history of hypertension, hyperlipidemia, insulin- dependent diabetes mellitus, previous CVA with left-sided hemiparesis sent to the emergency room with abnormal labs showing low hemoglobin 6.5 with Hemoccult positive Acute anemia due to acute blood loss from GI bleedstatus post Protonix bolus in the ED and will continue with IV twice daily, GI has been consulted and plan for EGD colonoscopy on Friday. Home aspirin and Xarelto has been on hold. Status post transfusion 1 unit packed red blood cell with repeat hemoglobin 10.9. Hemodynamically stable History of CVA with left-sided hemiparesis and dysphagia with a history of G- tubespeech therapy for swallow evaluation. Aspirin and Xarelto on hold, start tube feeds. Resume statin Continue physical therapy Insulin-dependent diabetes mellitus, overall controlledblood sugar monitor with sliding scale insulin, patient has been n.p.o. and Levemir has been on hold overnight Hypertensionresume home lisinopril abnormal looking at lower dose due to GI bleed. New monitor blood pressure. Hypernatremia -start free water flushes through G-tube Mild protein calorie malnutritionpatient with BMI 17 ;albumin 2.8 with generalized functional weakness over the right upper and lower extremity, chronically bedbound, dietitian consult and start Glucerna through tube feeds DVT prophylaxisXarelto on hold due to GI bleed. _ (1) GI bleed Qualifiers: GI bleed type/associated pathology: Gastritis type: (2) DM (diabetes mellitus) Qualifiers: Diabetes mellitus type: Diabetes mellitus mcc insulin use: Diabetes mellitus complication status: Diabetes mellitus complication detail: Diabetic retinopathy severity: Proliferative retinopathy type: Diabetes mellitus macular edema: Laterality: Chronic kidney disease stage:
[2018-12-05] MEDS: Lisinopril 10 MG Tablet G-TUBE SCH (15:48)
[2018-12-05] MEDS: amLODIPine 5 MG Tablet G-TUBE SCH (15:48)
[2018-12-05] MEDS: Pantoprazole Inj 40 MG Vial IV.PUSH SCH (15:49)
[2018-12-06] MEDS: Pantoprazole Inj 40 MG Vial IV.PUSH SCH ×2 (03:09→17:14)
[2018-12-06 06:20] LABS: Baso # (Auto) 0.1 th/mm3 (0.0-0.2); Baso % (Auto) 0.8 % (0.0-2.0); Eos # (Auto) 0.3 th/mm3 (0.0-0.4); Eos % (Auto) 2.9 % (0.0-4.0); Hematocrit 32.8 % (39.0-51.0); Hemoglobin 10.9 gm/dL (13.0-17.0); Lymph # (Auto) 1.7 th/mm3 (1.0-4.8); Lymph % (Auto) 16.7 % (9.0-44.0); Mean Corpuscular HGB Conc 33.1 % (32.0-36.0); Mean Corpuscular Hemoglobin 29.2 pg (27.0-34.0); Mean Corpuscular Volume 88.2 fL (80.0-100.0); Mean Platelet Volume 9.5 fL (7.0-11.0); Mono # (Auto) 0.8 th/mm3 (0.0-0.9); Mono % (Auto) 7.7 % (0.0-8.0); Neut # (Auto) 7.3 th/mm3 (1.8-7.7); Neut % (Auto) 71.9 % (16.0-70.0); Platelet Count 297 th/mm3 (150-450); Red Blood Count 3.72 mil/mm3 (4.50-5.90); Red Cell Distribution Width 17.4 % (11.6-17.2); White Blood Count 10.2 th/mm3 (4.0-11.0)
[2018-12-06 06:55] LABS: Anion Gap 6 meq/L (5-15); Blood Urea Nitrogen 14 mg/dL (7-18); Calcium 8.7 mg/dL (8.5-10.1); Carbon Dioxide 28.3 meq/L (21.0-32.0); Chloride 108 meq/L (98-107); Glomerular Filtration Rate Greater Than 89 mL/min (>89); Glucose,Random 167 mg/dL (74-106); Potassium 4.1 meq/L (3.5-5.1); Sodium 142 meq/L (136-145)
[2018-12-06] MEDS: Senna/Docusate Sodium 8.6/50 MG Tablet PO SCH ×2 (10:06→23:36)
[2018-12-06] MEDS: Lisinopril 10 MG Tablet G-TUBE SCH (10:07)
[2018-12-06] MEDS: amLODIPine 5 MG Tablet G-TUBE SCH (10:07)
[2018-12-06] MEDS: Insulin NovoLOG Aspart Correctional Sugar Inj SQ SCH ×4 (10:20→23:32)
--- NOTE | 2018-12-06 10:25 | P.PNIM ---
Subjective Interval history: Patient sitting up in the chair. States there is no nausea or vomiting nor abdominal pain. Wants to move forward with the swallow test. Physical Exam Vital signs: Vital Signs 12/05/18 11:53 12/05/18 16:00 12/05/18 20:37 Temperature 97.9 F 98.1 F 98.3 F Pulse Rate 80 79 84 Respiratory Rate 17 17 16 Blood Pressure 150/70 H 144/67 H 129/67 Pulse Oximetry 99 99 100 12/05/18 23:15 12/06/18 08:00 Temperature 98 F 98.1 F Pulse Rate 80 70 Respiratory Rate 16 16 Blood Pressure 126/61 138/63 Pulse Oximetry 100 97 Intake & Output 12/05/18 12/06/18 12/06/18 18:59 06:59 18:59 Intake Total 1200 / 1200 1400 / 1400 Balance 1200 / 1200 1400 / 1400 Weight 42.4 kg Intake: IV 1000 / 1000 1000 / 1000 NS Inj 1,000 ML @ 100 mls/hr IV 1000 / 1000 1000 / 1000 .CONT .Q10H [facility] Rx#:[id number] Free Water Amount 200 / 200 400 / 400 Other: # Urine Diapers 3 3 # Bowel Movements 0 Narrative: PE: GENERAL: Middle-aged black male, frail, thin, in no acute distress, sitting up in a chair CARDIOVASCULAR: Regular rate and rhythm. No obvious murmurs to auscultation. RESPIRATORY: No obvious rhonchi or wheezing. Clear to auscultation. Breath sounds equal bilaterally. GASTROINTESTINAL: Abdomen soft, non-tender, nondistended. BS normal. G-tube in place MUSCULOSKELETAL: Extremities without clubbing, cyanosis, or edema. Atrophy lower extremity NEUROLOGICAL: Awake, alert and oriented to person/place. No new focal neurologic deficits, chronic left-sided hemiparesis with contracture. Moving both right upper and lower extremities spontaneously. Results Labs CBC & Chem 7: 12/06/18 05:37 12/06/18 05:37 Assessment and Plan (1) GI bleed: Code(s): K92.2 - Gastrointestinal hemorrhage, unspecified Status: Acute (2) DM (diabetes mellitus): Code(s): E11.9 - Type 2 diabetes mellitus without complications Status: Chronic (3) Anemia due to gastrointestinal blood loss: Code(s): D50.0 - Iron deficiency anemia secondary to blood loss (chronic) Status: Acute Plan 63-year-old male with a history of hypertension, hyperlipidemia, insulin- dependent diabetes mellitus, previous CVA with left-sided hemiparesis sent to the emergency room with abnormal labs showing low hemoglobin 6.5 with Hemoccult positive Acute anemia due to acute blood loss from GI bleedstatus post Protonix bolus in the ED and will continue with IV twice daily, GI has been consulted and plan for EGD colonoscopy on Friday, 12/07. Home aspirin and Xarelto has been on hold. Status post transfusion 1 unit packed red blood cell with repeat hemoglobin 10.9. Continues to be hemodynamically stable. History of CVA with left-sided hemiparesis and dysphagia with a history of G- tube Aspirin and Xarelto on hold, start tube feeds. Speech therapy will be performed a bedside swallow evaluation today to determine if patient can tolerate p.o. Resume statin Continue physical therapy Dietitian consult for tube feed goals Insulin-dependent diabetes mellitus, overall controlledblood sugar monitor with sliding scale insulin, home Levemir currently on hold Hypertensionresume home lisinopril and amlodipine at lower dose due to GI bleed. Blood pressure has been controlled. We will continue monitor. Hypernatremia -resolved after starting free water flushes through G-tube Mild protein calorie malnutritionpatient with BMI 17 ;albumin 2.8 with generalized functional weakness over the right upper and lower extremity, chronically bedbound, dietitian consult and continue Glucerna through tube feeds DVT prophylaxisXarelto on hold due to GI bleed. Back to long-term when medically stable. _ (1) GI bleed Qualifiers: GI bleed type/associated pathology: Gastritis type: (2) DM (diabetes mellitus) Qualifiers: Diabetes mellitus type: Diabetes mellitus document improvement specialist insulin use: Diabetes mellitus complication status: Diabetes mellitus complication detail: Diabetic retinopathy severity: Proliferative retinopathy type: Diabetes mellitus macular edema: Laterality: Chronic kidney disease stage:
--- NOTE | 2018-12-06 12:34 | P.PNGI ---
Subjective Interval history: Patient is sitting up in chair doing good denies nausea vomiting or bleeding <Cole Yoo - Last Filed: 12/06/18 12:28> Physical Exam Vital signs: Vital Signs 12/05/18 16:00 12/05/18 20:37 12/05/18 23:15 Temperature 98.1 F 98.3 F 98 F Pulse Rate 79 84 80 Respiratory Rate 17 16 16 Blood Pressure 144/67 H 129/67 126/61 Pulse Oximetry 99 100 100 12/06/18 08:00 Temperature 98.1 F Pulse Rate 70 Respiratory Rate 16 Blood Pressure 138/63 Pulse Oximetry 97 Intake & Output 12/05/18 12/06/18 12/06/18 18:59 06:59 18:59 Intake Total 1200 / 1200 1400 / 1400 Balance 1200 / 1200 1400 / 1400 Weight 42.4 kg Intake: IV 1000 / 1000 1000 / 1000 NS Inj 1,000 ML @ 100 mls/hr IV 1000 / 1000 1000 / 1000 .CONT .Q10H [facility] Rx#:[id number] Free Water Amount 200 / 200 400 / 400 Other: # Urine Diapers 3 3 # Bowel Movements 0 - Constitutional no acute distress - Routine HEENT Exam Head: Present: normocephalic - Routine Respiratory Exam Present: CTA bilaterally - Routine Cardiovascular Exam Present: RRR - Routine Abdominal Exam Present: soft, normoactive bowel sounds - Routine Skin Exam Present: intact, dry - Routine Neurological Exam Present: alert, oriented X3 <Cole Yoo - Last Filed: 12/06/18 12:28> Vital signs: Vital Signs 12/05/18 16:00 12/05/18 20:37 12/05/18 23:15 Temperature 98.1 F 98.3 F 98 F Pulse Rate 79 84 80 Respiratory Rate 17 16 16 Blood Pressure 144/67 H 129/67 126/61 Pulse Oximetry 99 100 100 12/06/18 08:00 12/06/18 12:00 Temperature 98.1 F 98.0 F Pulse Rate 70 81 Respiratory Rate 16 17 Blood Pressure 138/63 136/66 Pulse Oximetry 97 100 Intake & Output 12/05/18 12/06/18 12/06/18 18:59 06:59 18:59 Intake Total 1200 / 1200 1400 / 1400 200 / 200 Balance 1200 / 1200 1400 / 1400 200 / 200 Weight 42.4 kg Intake: IV 1000 / 1000 1000 / 1000 NS Inj 1,000 ML @ 100 mls/hr IV 1000 / 1000 1000 / 1000 .CONT .Q10H [facility] Rx#:[id number] Free Water Amount 200 / 200 400 / 400 200 / 200 Other: # Urine Diapers 3 3 # Bowel Movements 0 <Tyrell Fraser - Last Filed: 12/06/18 13:19> Results - Labs CBC & Chem 7: 12/06/18 05:37 12/06/18 05:37 Laboratory Results - last 24 hr 12/05/18 12/05/18 12/06/18 16:15 20:05 05:37 WBC 10.2 RBC 3.72 L Hgb 10.9 L Hct 32.8 L MCV 88.2 MCH 29.2 MCHC 33.1 RDW 17.4 H Plt Count 297 MPV 9.5 Neut % (Auto) 71.9 H Lymph % (Auto) 16.7 Payne % (Auto) 7.7 Eos % (Auto) 2.9 Baso % (Auto) 0.8 Neut # (Auto) 7.3 Lymph # (Auto) 1.7 Payne # (Auto) 0.8 Eos # (Auto) 0.3 Baso # (Auto) 0.1 WBC Differential . Differential Comment Auto diff final Sodium Potassium Chloride Carbon Dioxide Anion Gap BUN Creatinine Estimated GFR POC Glucose 138 H 158 H Random Glucose Calcium 12/06/18 12/06/18 12/06/18 05:37 10:12 12:02 WBC RBC Hgb Hct MCV MCH MCHC RDW Plt Count MPV Neut % (Auto) Lymph % (Auto) Payne % (Auto) Eos % (Auto) Baso % (Auto) Neut # (Auto) Lymph # (Auto) Payne # (Auto) Eos # (Auto) Baso # (Auto) WBC Differential Differential Comment Sodium 142 Potassium 4.1 Chloride 108 H Carbon Dioxide 28.3 Anion Gap 6 BUN 14 Creatinine 0.66 Estimated GFR Greater than 89 POC Glucose 167 H 307 H Random Glucose 167 H Calcium 8.7 <Cole Yoo - Last Filed: 12/06/18 12:28> - Labs CBC & Chem 7: 12/06/18 05:37 12/06/18 05:37 Laboratory Results - last 24 hr 12/05/18 12/05/18 12/06/18 16:15 20:05 05:37 WBC 10.2 RBC 3.72 L Hgb 10.9 L Hct 32.8 L MCV 88.2 MCH 29.2 MCHC 33.1 RDW 17.4 H Plt Count 297 MPV 9.5 Neut % (Auto) 71.9 H Lymph % (Auto) 16.7 Payne % (Auto) 7.7 Eos % (Auto) 2.9 Baso % (Auto) 0.8 Neut # (Auto) 7.3 Lymph # (Auto) 1.7 Payne # (Auto) 0.8 Eos # (Auto) 0.3 Baso # (Auto) 0.1 WBC Differential . Differential Comment Auto diff final Sodium Potassium Chloride Carbon Dioxide Anion Gap BUN Creatinine Estimated GFR POC Glucose 138 H 158 H Random Glucose Calcium 12/06/18 12/06/18 12/06/18 05:37 10:12 12:02 WBC RBC Hgb Hct MCV MCH MCHC RDW Plt Count MPV Neut % (Auto) Lymph % (Auto) Payne % (Auto) Eos % (Auto) Baso % (Auto) Neut # (Auto) Lymph # (Auto) Payne # (Auto) Eos # (Auto) Baso # (Auto) WBC Differential Differential Comment Sodium 142 Potassium 4.1 Chloride 108 H Carbon Dioxide 28.3 Anion Gap 6 BUN 14 Creatinine 0.66 Estimated GFR Greater than 89 POC Glucose 167 H 307 H Random Glucose 167 H Calcium 8.7 <Tyrell Fraser - Last Filed: 12/06/18 13:19> Assessment and Plan - Plan - Anemia/heme (+) stools- hgb is 7.5 on admission, good results with 1 unit of blood transfusion, hgb today is 10.9 no active bleeding reported, patient is on Xarelto ( on hold) - DM, 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 PPI - Patient seen and examined by Dr. Fraser and myself and this note is written on his behalf <Cole Yoo - Last Filed: 12/06/18 12:28> - Attending Attestation I have seen and examined the patient and reviewed the relevant portions of the chart and discussed the patient's current complaints, results and findings with the [facility] EMT. We have reviewed the therapeutic plan for the patient. I agree with the above assessment and recommendations as documented above. <Tyrell Fraser - Last Filed: 12/06/18 13:19>
--- NOTE | 2018-12-06 14:15 | P.DIET ---
Nutritional Evaluation Type of nutrition evaluation: initial Nutrition consult regarding: Tube Feeding Nutrition screening: [facility] [place] Screening comments: 12/05/18 [facility] [place] Objective - Diagnosis acute anemia, GI bleed - Objective Body Mass Index: 16.6 % IBW: 75 (IBW = 124lb) Energy Needs - Lower Range (kCal/kg): 35 Energy Needs - Upper Range (kCal/kg): 40 Lower Limit kCal/kg (kCals): 1,484 Upper Limit kCal/kg (kCals): 1,696 Lower Limit Protein Factor (Grams per Kg): 1.1 Upper Limit Protein Factor (Grams per Kg): 1.3 Lower Protein Needs (Protein): 62 Upper Protein Needs (Protein): 73 Dietitian Reviewed in Medical Record: Current diet, Curent medications, Intake & Output, Labs, Medical history, Tube feeding Diet Order: clear liquid diet w/ TF'ing Speech Therapy Recommendations: Yes (other, pt would benefit from MBS to decide which diet is best for pt) Objective Comments: PMH: DM, HLD, stroke Labs: POC glucose 158 167 Assessment Assessment: Pt currently at high nutritional risk r/t low BMI (16.6) and need for TF'ing as nutritional support. Pt now on TF of Glucerna 1.5 @ 30mL/hr w/ 40mL/hr as goal rate per MD. Pt also receiving a meal tray of clear liquids where he consumed around 75% of lunch today. ST recs reviewed, pt was assessed today and tolerated thin liquids, purees, soft solids w/o aspiration or cough. ST mentioned pt would benefit from a MBS to r/o any silent aspiration present.Pt will be NPO after midnight for EGD tomorrow. For TF'ing RD recommend Glucerna 1.5 @ 45mL/hr to provide 1620kcal, 89g of protein, and 820mL of free water to best meet pts nutritional needs. Continue to monitor PO intake, TF tolerance. Labs reviewed, dietitian following. Recommendations: 1. Continue clear liquid diet per ST recs 2. For TF'ing RD recommend increasing goal rate to Glucerna 1.5 @ 45mL/hr to best meet pts nutritional needs 3. Continue to monitor PO intake, TF tolerance 4. Dietitian following Dietitian to Monitor: Lab values, Glucose level, Intake & Output, Diet tolerance , Tube feeding tolerance, Weight change, PO Intake, Swallow recommendations, Medical course
[2018-12-06] MEDS ORDERED: PEG 3350/E-Lyte Soln 4000 ML Bottle PO ONE ×2 (16:00)
[2018-12-07] MEDS: Pantoprazole Inj 40 MG Vial IV.PUSH SCH ×2 (04:30→17:20)
[2018-12-07] MEDS ORDERED: Chlorhexidine Gluconate 2% 1 Pack (2 Cloths) TOPICAL ONE (07:07)
[2018-12-07] MEDS ORDERED: Sodium Chlor 0.9% Inj 500 ML IV.SIG SCH (08:00)
[2018-12-07] MEDS: Insulin NovoLOG Aspart Correctional Sugar Inj SQ SCH ×4 (08:18→21:50)
[2018-12-07 11:07] LABS: Hematocrit 30.9 % (39.0-51.0); Hemoglobin 10.1 gm/dL (13.0-17.0)
--- NOTE | 2018-12-07 12:04 | P.PNIM ---
Subjective Interval history: patient was drowsy this morning, was sent back from endoscopy unit with EGD/Thermal being done due to concern for altered mental status. patient' s nurse informed me of this. I evaluated patient after he came back.nurse was in the room. Patient was easily arousable, says he is taking a nap-long night. He answered all questions appropriately. Physical Exam Vital signs: Vital Signs 12/06/18 12:00 12/06/18 16:00 12/06/18 20:00 Temperature 98.0 F 98.1 F 98.1 F Pulse Rate 81 71 84 Respiratory Rate 17 17 16 Blood Pressure 136/66 126/64 125/63 Pulse Oximetry 100 98 92 L 12/07/18 00:00 12/07/18 08:00 Temperature 98.0 F 98.1 F Pulse Rate 77 82 Respiratory Rate 18 19 Blood Pressure 142/81 H 114/60 Pulse Oximetry 93 L 100 Intake & Output 12/06/18 12/07/18 12/07/18 18:59 06:59 18:59 Intake Total 1160 / 1160 360 / 360 Balance 1160 / 1160 360 / 360 Weight 43.5 kg Intake: Oral 960 / 960 120 / 120 Water Bolus Amount 180 / 180 Free Water Amount 200 / 200 60 / 60 Other: # Voids 2 # Urine Diapers 1 Date of Last Bowel Movement 12/06/18 # Bowel Movements 4 Narrative: GENERAL: Middle-aged black male, frail, thin, in no acute distress, laying in bed. HEENT:not pale,anicteric, MAGALYS CARDIOVASCULAR: Regular rate and rhythm. No obvious murmurs to auscultation. RESPIRATORY: No obvious rhonchi or wheezing. Clear to auscultation. Breath sounds equal bilaterally. GASTROINTESTINAL: Abdomen soft, non-tender, nondistended. BS normal. G-tube in place MUSCULOSKELETAL: Extremities without clubbing, cyanosis, or edema. Atrophy lower extremity NEUROLOGICAL:Drowsy but easily arousable, and oriented to person/place.answers questions appropriately. Chronic left-sided hemiparesis with contracture. Moving both right upper and lower extremities spontaneously.No new focal neurologic deficits. Results Labs CBC & Chem 7: 12/07/18 10:57 12/06/18 05:37 Assessment and Plan (1) GI bleed: Code(s): K92.2 - Gastrointestinal hemorrhage, unspecified Status: Acute (2) DM (diabetes mellitus): Code(s): E11.9 - Type 2 diabetes mellitus without complications Status: Chronic (3) Anemia due to gastrointestinal blood loss: Code(s): D50.0 - Iron deficiency anemia secondary to blood loss (chronic) Status: Acute Plan 63yo M with h/o HTN,Hyperlipidemia, insulin-dependent diabetes mellitus, previous CVA with left-sided hemiparesis sent to the emergency room with abnormal labs showing low hemoglobin 6.5 with Hemoccult positive Acute anemia due to acute blood loss from GI bleedstatus post Protonix bolus in the ED and will continue with IV twice daily. Status post transfusion 1 unit packed red blood cell with repeat hemoglobin 10.9. Continues to be hemodynamically stable Home aspirin and Xarelto has been on hold. GI consulted, was planned for EGD colonoscopy today 12/07, however, these were not done reportedly patient had altered mentation. Altered mentation-patient seems at baseline on my evaluation, likely early am drowsiness was sleep related, will monitor and re-evaluate, if need be can check CT head. History of CVA with left-sided hemiparesis and dysphagia with a history of G- tube Aspirin and Xarelto on hold, start tube feeds. Speech therapy will be performed a bedside swallow evaluation today to determine if patient can tolerate p.o. Resume statin Continue physical therapy Dietitian consult for tube feed goals Insulin-dependent diabetes mellitus-blood sugar monitor with sliding scale insulin, home Levemir currently on hold. blood glucose within acceptable limits. Hypertensionresume home lisinopril and amlodipine at lower dose due to GI bleed. Blood pressure has been controlled. We will continue monitor. Hypernatremia -resolved after starting free water flushes through G-tube Mild protein calorie malnutritionpatient with BMI 17 ;albumin 2.8 with generalized functional weakness over the right upper and lower extremity, chronically bedbound, dietitian consult and continue Glucerna through tube feeds DVT prophylaxisXarelto on hold due to GI bleed. Dispo: Back to halfway when medically stable. 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
[2018-12-07] MEDS: amLODIPine 5 MG Tablet G-TUBE SCH (12:12)
[2018-12-07] MEDS: Senna/Docusate Sodium 8.6/50 MG Tablet PO SCH ×2 (12:13→21:50)
[2018-12-07] MEDS: Lisinopril 10 MG Tablet G-TUBE SCH (12:13)
[2018-12-08] MEDS: Pantoprazole Inj 40 MG Vial IV.PUSH SCH ×2 (02:28→16:00)
[2018-12-08] MEDS: Insulin NovoLOG Aspart Correctional Sugar Inj SQ SCH ×4 (08:20→21:41)
--- NOTE | 2018-12-08 10:01 | P.PNIM ---
Subjective Interval history: patient has no complaints. no melena or bloody stools yesterday. Physical Exam Vital signs: Vital Signs 12/07/18 12:00 12/07/18 16:00 12/07/18 19:56 Temperature 97.9 F 97.3 F L 97.6 F Pulse Rate 63 70 75 Respiratory Rate 16 16 17 Blood Pressure 141/65 H 115/55 L 161/74 H Pulse Oximetry 98 100 99 12/08/18 00:00 12/08/18 08:00 Temperature 97.9 F 97.6 F Pulse Rate 76 75 Respiratory Rate 17 16 Blood Pressure 157/76 H 139/65 Pulse Oximetry 99 100 Intake & Output 12/07/18 12/08/18 12/08/18 18:59 06:59 18:59 Intake Total 200 / 200 200 / 200 Output Total 1200 / 1200 Balance 200 / 200 -1000 / -1000 Weight 40.4 kg Intake: Free Water Amount 200 / 200 200 / 200 Output: Urine 1200 / 1200 Other: Date of Last Bowel Movement 12/07/18 # Bowel Movements 0 Narrative: GENERAL: Middle-aged black male, frail, thin, in no acute distress, laying in bed. HEENT:not pale,anicteric, MAGALYS CARDIOVASCULAR: Regular rate and rhythm. No obvious murmurs to auscultation. RESPIRATORY: No obvious rhonchi or wheezing. Clear to auscultation. Breath sounds equal bilaterally. GASTROINTESTINAL: Abdomen soft, non-tender, nondistended. BS normal. G-tube in place MUSCULOSKELETAL: Extremities without clubbing, cyanosis, or edema. Atrophy lower extremity NEUROLOGICAL:awake and oriented to person/place.answers questions appropriately. Chronic left-sided hemiparesis with contracture. Moving both right upper and lower extremities spontaneously.No new focal neurologic deficits. Results Labs CBC & Chem 7: 12/08/18 12:11 12/06/18 05:37 Assessment and Plan (1) GI bleed: Code(s): K92.2 - Gastrointestinal hemorrhage, unspecified Status: Acute (2) DM (diabetes mellitus): Code(s): E11.9 - Type 2 diabetes mellitus without complications Status: Chronic (3) Anemia due to gastrointestinal blood loss: Code(s): D50.0 - Iron deficiency anemia secondary to blood loss (chronic) Status: Acute Plan 63yo M with h/o HTN,Hyperlipidemia, insulin-dependent diabetes mellitus, previous CVA with left-sided hemiparesis sent to the emergency room with abnormal labs showing low hemoglobin 6.5 with Hemoccult positive Acute anemia due to acute blood loss from GI bleedstatus post Protonix bolus in the ED and will continue with IV twice daily. Status post transfusion 1 unit packed red blood cell with repeat hemoglobin 10.9. Continues to be hemodynamically stable. Home aspirin and Xarelto has been on hold. GI consulted, was planned for EGD colonoscopy today 12/07, however, these were not done reportedly patient had altered mentation. Altered mentation-patient seems at baseline on my evaluation, likely early am drowsiness was sleep related, will monitor and re-evaluate, if need be can check CT head. History of CVA with left-sided hemiparesis and dysphagia with a history of G- tube Aspirin and Xarelto on hold, start tube feeds. Speech therapy will be performed a bedside swallow evaluation today to determine if patient can tolerate p.o. continue statin Continue physical therapy Dietitian consult for tube feed goals Insulin-dependent diabetes mellitus-blood sugar monitor with sliding scale insulin, home Levemir currently on hold. blood glucose within acceptable limits. Hypertensioncontinue home lisinopril and amlodipine at lower dose due to GI bleed. Blood pressure has been controlled. We will continue monitor. Hypernatremia -resolved after starting free water flushes through G-tube Mild protein calorie malnutritionpatient with BMI 17 ;albumin 2.8 with generalized functional weakness over the right upper and lower extremity, chronically bedbound, dietitian consult and continue Glucerna through tube feeds DVT prophylaxisXarelto on hold due to GI bleed. Dispo: Back to care home when medically stable. 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
[2018-12-08] MEDS: amLODIPine 5 MG Tablet G-TUBE SCH (11:18)
[2018-12-08] MEDS: Senna/Docusate Sodium 8.6/50 MG Tablet PO SCH ×2 (11:18→21:36)
[2018-12-08] MEDS: Lisinopril 10 MG Tablet G-TUBE SCH (11:19)
[2018-12-08] MEDS ORDERED: Lidocaine PF 1% Inj 5 ML Syringe OTHER ONE (12:22)
[2018-12-08] MEDS ORDERED: Phenylephrine/NS 1000 MCG/10ML Syringe IV.PUSH ONE (12:22)
[2018-12-08 12:34] LABS: Baso # (Auto) 0.1 th/mm3 (0.0-0.2); Baso % (Auto) 1.1 % (0.0-2.0); Eos # (Auto) 0.3 th/mm3 (0.0-0.4); Eos % (Auto) 4.1 % (0.0-4.0); Hematocrit 34.8 % (39.0-51.0); Hemoglobin 11.2 gm/dL (13.0-17.0); Lymph # (Auto) 1.3 th/mm3 (1.0-4.8); Lymph % (Auto) 19.1 % (9.0-44.0); Mean Corpuscular HGB Conc 32.1 % (32.0-36.0); Mean Corpuscular Hemoglobin 28.6 pg (27.0-34.0); Mean Corpuscular Volume 89.1 fL (80.0-100.0); Mean Platelet Volume 9.3 fL (7.0-11.0); Mono # (Auto) 0.5 th/mm3 (0.0-0.9); Mono % (Auto) 6.6 % (0.0-8.0); Neut # (Auto) 4.7 th/mm3 (1.8-7.7); Neut % (Auto) 69.1 % (16.0-70.0); Platelet Count 308 th/mm3 (150-450); Red Blood Count 3.91 mil/mm3 (4.50-5.90); Red Cell Distribution Width 16.8 % (11.6-17.2); White Blood Count 6.8 th/mm3 (4.0-11.0)
--- NOTE | 2018-12-08 13:10 | GIPROC ---
[facility] [address] [facility]. [facility], [address] EGD PROCEDURE REPORT EXAM DATE: 12/08/2018 PATIENT NAME: Cristhian Gomez MR #: [id number] BIRTHDATE: 1955 ATTENDING: Ralph Hein MD ORDER #: [id number] BODY AND FRAME MAN: Marni Lazaro and Adolfo Stringer STATUS: inpatient INDICATIONS: The patient is a 63 yr old male here for an EGD due to anemia secondary to chronic blood loss PROCEDURE PERFORMED: EGD, diagnostic MEDICATIONS: Per Anesthesia and None. TOPICAL ANESTHETIC: none CONSENT: The patient understands the risks and benefits of the procedure and understands that these risks include, but are not limited to: sedation, allergic reaction, infection, perforation and/or bleeding. Alternative means of evaluation and treatment include, among others: physical exam, x-rays, and/or surgical intervention. The patient elects to proceed with this endoscopic procedure. medical equipment was checked for proper function. Hand hygiene and appropriate measures for infection prevention was taken. After the risks, benefits and alternatives of the procedure were thoroughly explained, Informed consent was verified, confirmed and timeout was successfully executed by the treatment team. The patient was anesthetized with topical anesthesia and the EC-3490Li (Pedi C) endoscope was introduced through the mouth and advanced to the second portion of the duodenum. Retroflexed views revealed no abnormalities The gastroscope was then slowly withdrawn and removed. ESOPHAGUS: There was LA Class B esophagitis noted. STOMACH: S/P PREG placement .The mucosa of the stomach appeared normal. DUODENUM: The duodenal mucosa appeared normal in the entire duodenum. ADVERSE EVENTS: There were no complications. IMPRESSIONS: 1. There was LA Class B esophagitis noted 2. The mucosa of the stomach appeared normal 3. Normal duodenal mucosa in the entire duodenum 4. Retroflexed views revealed no abnormalities RECOMMENDATIONS: Colonoscopy PATIENT CONDITION: stable DISPOSITION: Inpatient REPEAT EXAM: Return as needed for EGD Ralph Hein MD eSigned: Ralph Hein MD 12/08/2018 1:09 PM cc: PATIENT NAME: Cristhian Gomez MR#: [id number]
--- NOTE | 2018-12-08 13:15 | GIPROC ---
[facility] [address] [facility]. [facility], [address] COLONOSCOPY PROCEDURE REPORT EXAM DATE: 12/08/2018 PATIENT NAME: Cristhian Gomez MR #: [id number] BIRTHDATE: 1955 ENDOSCOPIST: Ralph Hein MD ORDER #: [id number] BILLBOARD INSTALLER: Marni Lazaro and Adolfo Stringer STATUS: inpatient INDICATIONS: The patient is a 63 yr old male here for a colonoscopy due to iron deficiency anemia and hematochezia PROCEDURE PERFORMED: Colonoscopy, diagnostic Colonoscopy with polypectomy MEDICATIONS: Per Anesthesia and None. PREP QUALITY: poor ESTIMATED BLOOD LOSS: None CONSENT: The patient understands the risks and benefits of the procedure and understands that these risks include, but are not limited to: sedation, allergic reaction, infection, perforation and/or bleeding. Alternative means of evaluation and treatment include, among others: physical exam, x-rays, and/or surgical intervention. The patient elects to proceed with this endoscopic procedure. medical equipment was checked for proper function. Hand hygiene and appropriate measures for infection prevention was taken. After the risks, benefits and alternatives of the procedure were thoroughly explained, Informed consent was verified, confirmed and timeout was successfully executed by the treatment team. A digital exam was performed and revealed no abnormalities of the rectum The Pentax EC-3490Li endoscope was introduced through the anus and advanced to the cecum, which was identified by both the appendix and ileocecal valve. The instrument was then slowly withdrawn as the colon was fully examined. COLON FINDINGS: A pedunculated polyp measuring 8 mm in size was found in the descending colon. A polypectomy was performed using snare cautery. Mild diverticulosis was noted in the descending colon and sigmoid colon. Retroflexion was not performed The scope was then completely withdrawn from the patient and the procedure terminated. PROCEDURE WITHDRAWAL TIME:10minutes ADVERSE EVENTS: There were no complications. IMPRESSIONS: 1. A pedunculated polyp measuring 8 mm in size was found in the descending colon; polypectomy was performed using snare cautery 2. Mild diverticulosis was noted in the descending colon and sigmoid colon 3. Retroflexion was not performed 4. Was performed 5. Revealed no abnormalities of the rectum RECOMMENDATIONS: 1. Await biopsy results. Biopsy results will not be ready for 7-10 days. If you don't hear from us in two weeks, call our office for results. 2. CT A/P RECALL: Return 1 year Colonoscopy Ralph Hein MD eSigned: Ralph Hein MD 12/08/2018 1:15 PM cc: PATIENT NAME: Cristhian Gomez MR#: [id number]
[2018-12-09] MEDS: Pantoprazole Inj 40 MG Vial IV.PUSH SCH ×2 (04:52→15:22)
[2018-12-09 06:41] LABS: Hematocrit 32.6 % (39.0-51.0); Hemoglobin 10.7 gm/dL (13.0-17.0)
[2018-12-09 07:01] LABS: Anion Gap 10 meq/L (5-15); Blood Urea Nitrogen 9 mg/dL (7-18); Calcium 8.7 mg/dL (8.5-10.1); Carbon Dioxide 25.9 meq/L (21.0-32.0); Chloride 107 meq/L (98-107); Glomerular Filtration Rate Greater Than 89 mL/min (>89); Glucose,Random 144 mg/dL (74-106); Potassium 3.3 meq/L (3.5-5.1); Sodium 143 meq/L (136-145)
[2018-12-09] MEDS: Lisinopril 10 MG Tablet G-TUBE SCH ×2 (09:36→22:31)
[2018-12-09] MEDS: Senna/Docusate Sodium 8.6/50 MG Tablet PO SCH ×2 (09:36→22:31)
[2018-12-09] MEDS: amLODIPine 5 MG Tablet G-TUBE SCH (09:36)
[2018-12-09] MEDS: Insulin NovoLOG Aspart Correctional Sugar Inj SQ SCH ×4 (09:47→22:29)
--- NOTE | 2018-12-09 11:12 | P.PNIM ---
Subjective Interval history: no new complaints. Physical Exam Vital signs: Vital Signs 12/08/18 12:00 12/08/18 13:12 12/08/18 16:00 Temperature 97.2 F L 97.4 F L 98.0 F Pulse Rate 78 68 76 Respiratory Rate 17 18 18 Blood Pressure 134/70 148/77 H 142/80 H Pulse Oximetry 100 100 100 12/08/18 20:00 12/09/18 00:00 12/09/18 08:00 Temperature 97.6 F 97.7 F 97.5 F L Pulse Rate 73 74 85 Respiratory Rate 17 17 17 Blood Pressure 163/81 H 154/74 H 172/79 H Pulse Oximetry 92 L 98 99 Intake & Output 12/08/18 12/09/18 12/09/18 18:59 06:59 18:59 Intake Total 1900 / 1900 700 / 700 Output Total 900 / 900 Balance 1900 / 1900 -200 / -200 Weight 40.1 kg Intake: IV 300 / 300 Oral 1000 / 1000 Free Water Amount 200 / 200 400 / 400 Anesthesia Amount 700 / 700 Output: Urine 900 / 900 Other: # Voids 4 Date of Last Bowel Movement 12/08/18 # Bowel Movements 2 0 Narrative: GENERAL: Middle-aged black male, frail, thin, in no acute distress, laying in bed. HEENT:not pale,anicteric, MAGALYS CARDIOVASCULAR: Regular rate and rhythm. No obvious murmurs to auscultation. RESPIRATORY: No obvious rhonchi or wheezing. Clear to auscultation. Breath sounds equal bilaterally. GASTROINTESTINAL: Abdomen soft, non-tender, nondistended. BS normal. G-tube in place MUSCULOSKELETAL: Extremities without clubbing, cyanosis, or edema. Atrophy lower extremity NEUROLOGICAL:awake and oriented to person/place.answers questions appropriately. Chronic left-sided hemiparesis with contracture. Moving both right upper and lower extremities spontaneously.No new focal neurologic deficits. Results Labs CBC & Chem 7: 12/10/18 06:35 12/09/18 06:25 Assessment and Plan (1) GI bleed: Code(s): K92.2 - Gastrointestinal hemorrhage, unspecified Status: Acute (2) DM (diabetes mellitus): Code(s): E11.9 - Type 2 diabetes mellitus without complications Status: Chronic (3) Anemia due to gastrointestinal blood loss: Code(s): D50.0 - Iron deficiency anemia secondary to blood loss (chronic) Status: Acute Plan 63yo M with h/o HTN,Hyperlipidemia, insulin-dependent diabetes mellitus, previous CVA with left-sided hemiparesis sent to the emergency room with abnormal labs showing low hemoglobin 6.5 with Hemoccult positive Acute anemia due to acute blood loss from GI bleedstatus post Protonix bolus in the ED and will continue with IV twice daily. Status post transfusion 1 unit packed red blood fred. Hb remains stable in the 10 's range. Home aspirin and Xarelto has been on hold. GI consulted EGD showed-esophagitis, colonoscopy showed a pedunculated polyp which was snared, no source of bleeding was identified. Will d/w GI re: need for capsule endoscopy since no source of bleeding was identified and patient needs to be on anticoagulation. Meanwhile keep holding anticoagulation. History of CVA with left-sided hemiparesis and dysphagia with a history of G- tube Aspirin and Xarelto on hold, start tube feeds. Speech therapy will be performed a bedside swallow evaluation today to determine if patient can tolerate p.o. continue statin, Resume Aspirin at 81mg daily. Continue physical therapy Dietitian consult for tube feed goals Insulin-dependent diabetes mellitus-blood sugar monitor with sliding scale insulin, home Levemir currently on hold. blood glucose within acceptable limits. Hypertensioncontinue home lisinopril and amlodipine at lower dose due to GI bleed. Blood pressure has been controlled. We will continue monitor. Hypernatremia -resolved after starting free water flushes through G-tube Mild protein calorie malnutritionpatient with BMI 17 ;albumin 2.8 with generalized functional weakness over the right upper and lower extremity, chronically bedbound, dietitian consult and continue Glucerna through tube feeds DVT prophylaxisXarelto on hold due to GI bleed. Dispo: Back to shelter when medically stable. _ (1) DM (diabetes mellitus) Qualifiers: Chronic kidney disease stage: Diabetes mellitus complication detail: Diabetes mellitus complication status: Diabetes mellitus snf insulin use : Diabetes mellitus macular edema: Diabetes mellitus type: Diabetic retinopathy severity: Laterality: Proliferative retinopathy type: (2) GI bleed Qualifiers: GI bleed type/associated pathology: Gastritis type:
--- NOTE | 2018-12-09 15:01 | P.PNGI ---
Physical Exam Vital signs: Vital Signs 12/08/18 16:00 12/08/18 20:00 12/09/18 00:00 Temperature 98.0 F 97.6 F 97.7 F Pulse Rate 76 73 74 Respiratory Rate 18 17 17 Blood Pressure 142/80 H 163/81 H 154/74 H Pulse Oximetry 100 92 L 98 12/09/18 08:00 12/09/18 12:00 Temperature 97.5 F L 97.9 F Pulse Rate 85 86 Respiratory Rate 17 17 Blood Pressure 172/79 H 160/76 H Pulse Oximetry 99 98 Intake & Output 12/08/18 12/09/18 12/09/18 18:59 06:59 18:59 Intake Total 1900 / 1900 700 / 700 200 / 200 Output Total 900 / 900 Balance 1900 / 1900 -200 / -200 200 / 200 Weight 40.1 kg Intake: IV 300 / 300 Oral 1000 / 1000 Free Water Amount 200 / 200 400 / 400 200 / 200 Anesthesia Amount 700 / 700 Output: Urine 900 / 900 Other: # Voids 4 Date of Last Bowel Movement 12/08/18 # Bowel Movements 2 0 Results - Labs CBC & Chem 7: 12/09/18 06:25 12/09/18 06:25 Laboratory Results - last 24 hr 12/08/18 12/08/18 12/09/18 16:52 21:41 06:25 Hgb Hct Sodium 143 Potassium 3.3 L Chloride 107 Carbon Dioxide 25.9 Anion Gap 10 BUN 9 Creatinine 0.64 Estimated GFR Greater than 89 POC Glucose 104 111 H Random Glucose 144 H Calcium 8.7 12/09/18 12/09/18 12/09/18 06:25 08:02 12:19 Hgb 10.7 L Hct 32.6 L Sodium Potassium Chloride Carbon Dioxide Anion Gap BUN Creatinine Estimated GFR POC Glucose 184 H 197 H Random Glucose Calcium Assessment and Plan (1) Anemia due to gastrointestinal blood loss Status: Acute Code(s): D50.0 - Iron deficiency anemia secondary to blood loss (chronic) (2) Dysphagia Status: Chronic Code(s): R13.10 - Dysphagia, unspecified (3) Acute upper GI bleed Status: Acute Code(s): K92.2 - Gastrointestinal hemorrhage, unspecified (4) Hypokalemia Status: Acute Code(s): E87.6 - Hypokalemia - Plan - Anemia/heme (+) stools- hgb is 7.5 on admission, good results with 1 unit of blood transfusion, hgb today is 10.9 no active bleeding reported, patient is on Xarelto ( on hold) - DM, h/o CVA w/ Residual Left-Sided Hemiparesis and Dysphagia s/p G-tube 12/09/2018 Assessment Anemia heme positive stool -hemoglobin 10.7 hematocrit 32.6 Status post EGD 12/08/2018 showed there was LA Class B esophagitis noted. The mucosa of the stomach appeared normal. Normal duodenal mucosa in the entire duodenum. Retroflexed views revealed no abnormalities. colonoscopy 12/08/2018 revealed A pedunculated polyp measuring 8 mm in size was found in the descending colon; polypectomy was performed using snare cautery. Mild diverticulosis was noted in the descending colon and sigmoid colon. Retroflexion was not performed. Revealed no abnormalities of the rectum. Hypokalemia potassium 3.3 Plan: -Continue tube feeding per dietary recommendation -PPI -Electrolytes replacement per attending -Monitor for any active bleeding -Monitor labs -CT abdomen pelvis today -May resume Xarelto if CT abdomen pelvis is normal -Supportive care -Recommendations to follow Patient seen and examined by Dr. Hein and myself and this note is written on his behalf. - Attending Attestation Dr. Hein (2) Dysphagia Qualifiers: Dysphagia type: unspecified Qualified Code(s): R13.10 - Dysphagia, unspecified
[2018-12-09] MEDS ORDERED: Diatrizoate Meglum/Diatrizoate Sod Liq 9 ML UDC PO ONE (15:15)
--- NOTE | 2018-12-09 18:07 | CT ---
EXAM DATE: 12/09/2018 5:59 PM EST AGE/SEX: 63 years / Male INDICATIONS: Blood in stool CLINICAL DATA: This is the patient's initial encounter. Patient reports that signs and symptoms have been present for 1 day and indicates a pain score of 2/10. MEDICAL/SURGICAL HISTORY: Anemia. Diabetes. Hypertension. Stroke . Gastrostomy tube placeme nt ORAL CONTRAST: Prescribed oral contrast ingested. RADIATION DOSE: 7.02 CTDI (mGy) COMPARISON: [facility] – [place] ABDOMEN & PELVIS W/O CONTRAST, 11/28/2018. . TECHNIQUE: Multiple contiguous axial images were obtained through the abdomen and pelvis following b olus infusion of 80 ml Omnipaque 350 (iohexol) nonionic water-soluble contrast as a single exam dos e. Prescribed oral contrast ingested. Using automated exposure control and adjustment of the mA and/ or kV according to patient size, radiation dose was kept as low as reasonably achievable to obtain op timal diagnostic quality images. DICOM format image data is available electronically for review and comparison. FINDINGS: Lower Lungs: The visualized lower lungs are clear. Liver: The liver has a homogeneous density without space-occupying lesion. There is no dilation of th e biliary tree. Gallbladder is unremarkable. Spleen: Homogeneous density without enlargement. Pancreas: Unremarkable without mass or calcification. Kidneys: Normal in size and shape. No evidence of mass or hydronephrosis. Adrenal Glands: Unremarkable. Aorta: The aorta and proximal iliac vessels are grossly unremarkable without aneurysmal dilation. Bowel/Mesentery: A gastrostomy tube is noted. The bowel loops are grossly unremarkable. The cecum and sigmoid colon have a normal configuration. Abdominal Wall: Intact. Retroperitoneum: No evidence of adenopathy in the retrocrural, para-aortic, or deep pelvic regions. Bladder: There is noted within the lumen of the bladder. No stone or Yadav catheter observed. Contour s are smooth. Reproductive Organs: No abnormal masses or calcifications seen. Inguinal: The inguinal region is unremarkable without evidence of adenopathy. Bony Structures: Unremarkable. CONCLUSION: 1. Air within the lumen of the urinary bladder. This would suggest recent instrumentation. Alternati vely, an infection with gas producing organisms can generate a similar appearance but I see no second pham signs of inflammatory change to suggest this. 2. No acute abnormality. Electronically signed by: Og Ricardo MD Board Certified Radiologist 12/09/2018 6:06 PM EST
[2018-12-09 21:16] LABS: Hematocrit 31.8 % (39.0-51.0); Hemoglobin 10.4 gm/dL (13.0-17.0)
[2018-12-10] MEDS: Pantoprazole Inj 40 MG Vial IV.PUSH SCH ×2 (02:49→15:01)
[2018-12-10 07:29] LABS: Hematocrit 31.7 % (39.0-51.0); Hemoglobin 10.5 gm/dL (13.0-17.0)
[2018-12-10] MEDS: Insulin NovoLOG Aspart Correctional Sugar Inj SQ SCH ×4 (08:44→21:44)
--- NOTE | 2018-12-10 10:19 | P.PNGI ---
Subjective Interval history: Patient resting soundly with eyes closed No apparent distress Physical Exam Vital signs: Vital Signs 12/09/18 12:00 12/09/18 16:00 12/09/18 20:00 Temperature 97.9 F 98.4 F 99.2 F Pulse Rate 86 85 89 Respiratory Rate 17 18 18 Blood Pressure 160/76 H 165/77 H 151/75 H Pulse Oximetry 98 100 100 12/10/18 00:00 12/10/18 08:00 Temperature 98.8 F 98.1 F Pulse Rate 102 H 91 H Respiratory Rate 18 16 Blood Pressure 128/76 145/72 H Pulse Oximetry 97 99 Intake & Output 12/09/18 12/10/18 12/10/18 18:59 06:59 18:59 Intake Total 400 / 400 400 / 400 Output Total 450 / 450 Balance 400 / 400 -50 / -50 Intake: Free Water Amount 400 / 400 400 / 400 Output: Urine 450 / 450 Other: Date of Last Bowel Movement 12/09/18 12/08/18 12/10/18 # Bowel Movements 1 1 - Constitutional no acute distress - Routine HEENT Exam Head: Present: normocephalic - Routine Respiratory Exam Present: CTA bilaterally. Absent: accessory muscle use - Routine Abdominal Exam Present: soft, normoactive bowel sounds. Absent: tenderness, distended - Routine Skin Exam Present: dry, warm Results - Labs CBC & Chem 7: 12/10/18 06:35 12/09/18 06:25 Laboratory Results - last 24 hr 12/09/18 12/09/18 12/09/18 12:19 18:15 20:06 Hgb 10.4 L Hct 31.8 L POC Glucose 197 H 183 H 12/09/18 12/10/18 12/10/18 22:29 06:35 08:58 Hgb 10.5 L Hct 31.7 L POC Glucose 138 H 286 H - Imaging Impressions Abdomen/Pelvis CT 12/09/18 00:00 CONCLUSION: 1. Air within the lumen of the urinary bladder. This would suggest recent instrumentation. Alternatively, an infection with gas producing organisms can generate a similar appearance but I see no secondary signs of inflammatory change to suggest this. 2. No acute abnormality. Assessment and Plan (1) Anemia due to gastrointestinal blood loss Status: Acute Code(s): D50.0 - Iron deficiency anemia secondary to blood loss (chronic) (2) Dysphagia Status: Chronic Code(s): R13.10 - Dysphagia, unspecified (3) Acute upper GI bleed Status: Acute Code(s): K92.2 - Gastrointestinal hemorrhage, unspecified (4) Hypokalemia Status: Acute Code(s): E87.6 - Hypokalemia - Plan - Anemia/heme (+) stools- hgb is 7.5 on admission, good results with 1 unit of blood transfusion, hgb today is 10.9 no active bleeding reported, patient is on Xarelto ( on hold) - DM, h/o CVA w/ Residual Left-Sided Hemiparesis and Dysphagia s/p G-tube 12/09/2018 Assessment Anemia heme positive stool -hemoglobin 10.7 hematocrit 32.6 Status post EGD 12/08/2018 showed there was LA Class B esophagitis noted. The mucosa of the stomach appeared normal. Normal duodenal mucosa in the entire duodenum. Retroflexed views revealed no abnormalities. colonoscopy 12/08/2018 revealed A pedunculated polyp measuring 8 mm in size was found in the descending colon; polypectomy was performed using snare cautery. Mild diverticulosis was noted in the descending colon and sigmoid colon. Retroflexion was not performed. Revealed no abnormalities of the rectum. Hypokalemia potassium 3.3 12/10/2018 Anemia with heme positive stool-hemoglobin 10.5 hematocrit 31.7 stable with no reported bleeding 12/09/2018 CT abdomen and pelvis: Air within the lumen of the urinary bladder. This would suggest recent instrumentation. Alternatively, an infection with gas producing organisms can generate a similar appearance but no secondary signs of inflammatory change to suggest this. No acute abnormality. Plan -Tube feeding as per dietary recommendation -Continue PPI -Monitor hemoglobin and hematocrit -Monitor for active bleeding -CT abdomen and pelvis findings as noted above -May resume Xarelto as per attending -Supportive care -May consider capsule endoscopy as outpatient -Patient stable from GI standpoint, GI will sign off at this time please notify for any further assistance needed This patient has been seen by myself and Dr. Hein and this note is written on his behalf - Attending Attestation Dr. Hein (2) Dysphagia Qualifiers: Dysphagia type: unspecified Qualified Code(s): R13.10 - Dysphagia, unspecified
[2018-12-10] MEDS: Senna/Docusate Sodium 8.6/50 MG Tablet PO SCH ×2 (10:41→21:33)
[2018-12-10] MEDS: Lisinopril 10 MG Tablet G-TUBE SCH ×2 (10:41→21:29)
[2018-12-10] MEDS: amLODIPine 5 MG Tablet G-TUBE SCH (10:42)
--- NOTE | 2018-12-10 14:25 | P.PNIM ---
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 He appears lethargic, but responding to questions, obeying commands. Physical Exam Vital signs: Vital Signs 12/09/18 16:00 12/09/18 20:00 12/10/18 00:00 Temperature 98.4 F 99.2 F 98.8 F Pulse Rate 85 89 102 H Respiratory Rate 18 18 18 Blood Pressure 165/77 H 151/75 H 128/76 Pulse Oximetry 100 100 97 12/10/18 08:00 12/10/18 12:00 Temperature 98.1 F 99.1 F Pulse Rate 91 H 86 Respiratory Rate 16 16 Blood Pressure 145/72 H 104/46 L Pulse Oximetry 99 98 Intake & Output 12/09/18 12/10/18 12/10/18 18:59 06:59 18:59 Intake Total 400 / 400 400 / 400 200 / 200 Output Total 450 / 450 Balance 400 / 400 -50 / -50 200 / 200 Intake: Free Water Amount 400 / 400 400 / 400 200 / 200 Output: Urine 450 / 450 Other: Date of Last Bowel Movement 12/09/18 12/08/18 12/10/18 # Bowel Movements 1 1 Narrative: GENERAL: Middle-aged black male, frail, thin, in no acute distress, laying in bed. HEENT:not pale,anicteric, MAGALYS CARDIOVASCULAR: Regular rate and rhythm. No obvious murmurs to auscultation. RESPIRATORY: No obvious rhonchi or wheezing. Clear to auscultation. Breath sounds equal bilaterally. GASTROINTESTINAL: Abdomen soft, non-tender, nondistended. BS normal. G-tube in place MUSCULOSKELETAL: Extremities without clubbing, cyanosis, or edema. Atrophy lower extremity NEUROLOGICAL:appears drowsy today.Chronic left-sided hemiparesis with contracture. Moving both right upper and lower extremities spontaneously.No new focal neurologic deficits. Results Labs CBC & Chem 7: 12/11/18 09:58 12/09/18 06:25 Imaging Imaging: Impressions Abdomen/Pelvis CT 12/09/18 00:00 CONCLUSION: 1. Air within the lumen of the urinary bladder. This would suggest recent instrumentation. Alternatively, an infection with gas producing organisms can generate a similar appearance but I see no secondary signs of inflammatory change to suggest this. 2. No acute abnormality. Assessment and Plan (1) GI bleed: Code(s): K92.2 - Gastrointestinal hemorrhage, unspecified Status: Acute (2) DM (diabetes mellitus): Code(s): E11.9 - Type 2 diabetes mellitus without complications Status: Chronic (3) Anemia due to gastrointestinal blood loss: Code(s): D50.0 - Iron deficiency anemia secondary to blood loss (chronic) Status: Acute Plan 63yo M with h/o HTN,Hyperlipidemia, insulin-dependent diabetes mellitus, previous CVA with left-sided hemiparesis sent to the emergency room with abnormal labs showing low hemoglobin 6.5 with Hemoccult positive Acute anemia due to acute blood loss from GI bleedstatus post Protonix bolus in the ED and will continue with IV twice daily. Status post transfusion 1 unit packed red blood fred. Hb remains stable in the 10 's range. Resumed aspirin at 81mg. Xarelto has been on hold. GI consulted EGD showed-esophagitis, colonoscopy showed a pedunculated polyp which was snared, no source of bleeding was identified. Will d/w GI re: need for capsule endoscopy since no source of bleeding was identified and patient needs to be on anticoagulation, recommended CT abdo/ pelvis and if negative can resume Xarelto. CT was negative, will resume Xarelto tonight and monitor over 24hr for any signs of bleeding. History of CVA with left-sided hemiparesis and dysphagia with a history of G- tube Xarelto as above. Speech therapy following. continue statin, Resume Aspirin at 81mg daily. Continue physical therapy Dietitian consult for tube feed goals Insulin-dependent diabetes mellitus-blood sugar monitor with sliding scale insulin, home Levemir currently on hold. blood glucose within acceptable limits. Hypertensioncontinue home lisinopril and amlodipine at lower dose due to GI bleed. Blood pressure has been controlled. We will continue monitor. Hypernatremia -resolved after starting free water flushes through G-tube Mild protein calorie malnutritionpatient with BMI 17 ;albumin 2.8 with generalized functional weakness over the right upper and lower extremity, chronically bedbound, dietitian consult and continue Glucerna through tube feeds DVT prophylaxisXarelto on hold due to GI bleed. Dispo: Back to [facility] when medically stable. 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
[2018-12-10] MEDS: Rivaroxaban 20 MG Tablet G-TUBE SCH (17:00)
[2018-12-10 19:32] LABS: Hematocrit 31.1 % (39.0-51.0); Hemoglobin 10.3 gm/dL (13.0-17.0)
[2018-12-11] MEDS: Pantoprazole Inj 40 MG Vial IV.PUSH SCH ×2 (03:30→15:46)
[2018-12-11] MEDS: Insulin NovoLOG Aspart Correctional Sugar Inj SQ SCH ×3 (08:02→18:45)
[2018-12-11 10:13] LABS: Hematocrit 31.2 % (39.0-51.0); Hemoglobin 10.3 gm/dL (13.0-17.0)
--- NOTE | 2018-12-11 11:28 | P.PNIM ---
Subjective Interval history: patient reports pain in lt knee. Physical Exam Vital signs: Vital Signs 12/10/18 12:00 12/10/18 16:00 12/10/18 20:00 Temperature 99.1 F 98 F 98.9 F Pulse Rate 86 88 84 Respiratory Rate 16 16 17 Blood Pressure 132/68 90/52 L 133/66 Pulse Oximetry 98 98 95 12/11/18 00:00 12/11/18 08:00 Temperature 98.0 F 98.6 F Pulse Rate 85 77 Respiratory Rate 17 16 Blood Pressure 143/69 H 127/78 Pulse Oximetry 99 95 Intake & Output 12/10/18 12/11/18 12/11/18 18:59 06:59 18:59 Intake Total 400 / 400 400 / 400 Output Total 500 / 500 Balance -100 / -100 400 / 400 Intake: Free Water Amount 400 / 400 400 / 400 Output: Urine 500 / 500 Other: Date of Last Bowel Movement 12/10/18 12/10/18 # Bowel Movements 0 Narrative: GENERAL: Middle-aged black male, frail, thin, in no acute distress, laying in bed. HEENT:not pale,anicteric, MAGALYS CARDIOVASCULAR: Regular rate and rhythm. No obvious murmurs to auscultation. RESPIRATORY: No obvious rhonchi or wheezing. Clear to auscultation. Breath sounds equal bilaterally. GASTROINTESTINAL: Abdomen soft, non-tender, nondistended. BS normal. G-tube in place MUSCULOSKELETAL: Extremities without clubbing, cyanosis, or edema. Atrophy lower extremity NEUROLOGICAL:appears drowsy today.Chronic left-sided hemiparesis with contracture. Moving both right upper and lower extremities spontaneously.No new focal neurologic deficits. Results Labs CBC & Chem 7: 12/11/18 09:58 12/09/18 06:25 Assessment and Plan (1) GI bleed: Code(s): K92.2 - Gastrointestinal hemorrhage, unspecified Status: Acute (2) DM (diabetes mellitus): Code(s): E11.9 - Type 2 diabetes mellitus without complications Status: Chronic (3) Anemia due to gastrointestinal blood loss: Code(s): D50.0 - Iron deficiency anemia secondary to blood loss (chronic) Status: Acute Plan 63yo M with h/o HTN,Hyperlipidemia, insulin-dependent diabetes mellitus, previous CVA with left-sided hemiparesis sent to the emergency room with abnormal labs showing low hemoglobin 6.5 with Hemoccult positive Acute anemia due to acute blood loss from GI bleedstatus post Protonix bolus in the ED and will continue with IV twice daily. Status post transfusion 1 unit packed red blood fred. Hb remains stable in the 10 's range. Resumed aspirin at 81mg. GI consulted EGD showed-esophagitis, colonoscopy showed a pedunculated polyp which was snared, no source of bleeding was identified. Will d/w GI re: need for capsule endoscopy since no source of bleeding was identified and patient needs to be on anticoagulation, recommended CT abdo/ pelvis and if negative can resume Xarelto. CT was negative.Resumed Xarelto last evening, patient without bleeding so far. History of CVA with left-sided hemiparesis and dysphagia with a history of G- tube Xarelto as above. Speech therapy following. continue statin, Resume Aspirin at 81mg daily. Continue physical therapy Dietitian consult for tube feed goals Insulin-dependent diabetes mellitus-blood sugar monitor with sliding scale insulin, home Levemir currently on hold. blood glucose within acceptable limits. Hypertensioncontinue home lisinopril and amlodipine at lower dose due to GI bleed. Blood pressure has been controlled. We will continue monitor. Hypernatremia -resolved after starting free water flushes through G-tube Mild protein calorie malnutritionpatient with BMI 17 ;albumin 2.8 with generalized functional weakness over the right upper and lower extremity, chronically bedbound, dietitian consult and continue Glucerna through tube feeds Dispo: discharge to [facility] _ (1) DM (diabetes mellitus) Qualifiers: Chronic kidney disease stage: Diabetes mellitus complication detail: Diabetes mellitus complication status: Diabetes mellitus fci insulin use : Diabetes mellitus macular edema: Diabetes mellitus type: Diabetic retinopathy severity: Laterality: Proliferative retinopathy type: (2) GI bleed Qualifiers: GI bleed type/associated pathology: Gastritis type:
--- NOTE | 2018-12-11 11:36 | P.DS ---
DS: Providers Date of admission: 12/04/18 21:28 Primary care physician: UNKNOWN Consults: 12/04/18 21:39 Consult to Gastroenterology Routine Consulting Provider: Tyrell Fraser Reason for Consultation: GI Bleed CONSULT FOR AM Notified:: Service Spoke with:: Pino Date Notified:: 12/04/18 Time Notified:: 21:55 Ordering Provider: MARION 12/08/18 15:17 HUB Only Consult Order Stat Consulting Provider: [facility] Brief History from admission: This is a 63-year-old male with a PMH of HTN, Hyperlipidemia, DM, h/o CVA w/ Residual Left-Sided Hemiparesis and Dysphagia s/ p G-Tube who was sent to the ER from SNF for Hgb 6.5. Recent admit 11/28-12/03/18 for AMS thought to be secondary to dehydration, s/p eval by Psych w/ clearance to restart antipsychotic medications, was d/c'd to [facility]. Today w/ labs showing Hgb 6.5. Pt poor historian, unable to provide any history. On arrival, BP 147/73, HR 80, O2 sat 100% on RA, Afebrile. WBC 14.5. Hemoglobin 7.5, previously 9.6 on 12/01/2018. INR 1.1. Chemistry unremarkable. Hemoccult +. 1u pRBC ordered in ER, pending transfusion. Currently on Protonix gtt. DS: Diagnosis Discharge Diagnosis (1) GI bleed: Status: Acute (2) DM (diabetes mellitus): Status: Chronic (3) Anemia due to gastrointestinal blood loss: Status: Acute DS: Summary ISSUES ADDRESSED DURING THIS HOSPITALIZATION: Acute anemia due to acute blood loss from GI bleed Patient was initially started on Protonix drip.He received transfusion of 1 unit packed red blood fred. Hb stabilized in the 10's range. GI consulted. EGD showed-esophagitis, colonoscopy showed a pedunculated polyp which was snared, no source of bleeding was identified,hence GI recommended CT abdo/pelvis and if negative can resume Xarelto. CT was negative, resumed Xarelto and monitored over 24hr prior to discharge, he did not have any signs of bleeding. Patient is to follow up with GI as outpatient and need for capsule endoscopy shall be evaluated at the time. Resumed aspirin. History of CVA with left-sided hemiparesis and dysphagia with a history of G- tube Xarelto as above. Speech therapy following. continue statin, Resume Aspirin Continue physical therapy Dietitian consult for tube feed goals Insulin-dependent diabetes mellitus-blood sugar monitor with sliding scale insulin while here, he can continue home Levemir on discharge. Hypertensioncontinue home lisinopril and amlodipine at lower dose due to GI bleed. Blood pressure has been controlled. We will continue monitor. Hypernatremia -resolved after starting free water flushes through G-tube Mild protein calorie malnutritionpatient with BMI 17 ;albumin 2.8 with generalized functional weakness over the right upper and lower extremity, chronically bedbound, dietitian consult and continue Glucerna through tube feeds Stable for transfer back to half-way. Time Spent with Patient Total time spent providing and/or coordinating discharge services: Results Completed studies during hospitalization: Pending at discharge 12/08/18 16:20 Surgical [PTH] Routine Labs on day of discharge: Labs from last 24 hours 12/11/18 12/11/18 12/10/18 09:58 08:28 21:43 Hgb 10.3 L Hct 31.2 L POC Glucose 266 H 216 H 12/10/18 12/10/18 19:07 17:19 Hgb 10.3 L Hct 31.1 L POC Glucose 177 H Impressions ITS Impressions Abdomen/Pelvis CT 12/09/18 00:00 CONCLUSION: 1. Air within the lumen of the urinary bladder. This would suggest recent instrumentation. Alternatively, an infection with gas producing organisms can generate a similar appearance but I see no secondary signs of inflammatory change to suggest this. 2. No acute abnormality. Discharge Plan Discharge Disposition Patient Disposition: 03 Discharge to SNF Discharge Condition Condition: Stable Discharge Order Discharge Orders: Discharge Order (Routine); Ordered 12/11/18 Ordered By: Eugene Lemons Discharge Details Anticipated Discharge Date: 12/11/18 Physicians Team Primary Care Provider: UNKNOWN, Attending Provider: Eugene Lemons Other Providers: Tyrell Fraser ; [facility] Rxs /Orders / Referrals /Forms Prescriptions: Continue lansoprazole [Prevacid SoluTab] 30 mg Tablet,Disintegrat, Delay Rel 30 mg Feeding Tube BID Qty: 60 RF: 0 Saccharomyces boulardii 250 mg Capsule 250 mg Feeding Tube BID RF: 0 metoprolol tartrate 25 mg tablet 25 mg Feeding Tube BID RF: 0 lisinopril 20 mg Tablet 20 mg Feeding Tube BID RF: 0 amlodipine 10 mg Tablet 10 mg Feeding Tube DAILY RF: 0 ferrous sulfate 325 mg (65 mg iron) Tablet 325 mg Feeding Tube DAILY RF: 0 insulin detemir U-100 [Levemir U-100 Insulin] 100 unit/mL Solution 10 unit Sub-Q BID RF: 0 atorvastatin [Lipitor] 10 mg tablet 20 mg Feeding Tube HS RF: 0 magnesium hydroxide [Milk of Magnesia] 400 mg/5 mL Suspension 30 ml Feeding Tube DAILY PRN (Reason: Constipation) RF: 0 magnesium citrate Solution 296 ml Feeding Tube DAILY PRN (Reason: Constipation) RF: 0 aspirin 325 mg Tablet 325 mg G-Tube DAILY RF: 0 tamsulosin 0.4 mg Capsule,Extended Release 24hr 0.4 mg PO DAILY RF: 0 mirtazapine [Remeron SolTab] 15 mg Tablet,Disintegrating 15 mg Feeding Tube HS RF: 0 insulin aspart U-100 [Novolog U-100 Insulin aspart] 100 unit/mL solution 8 unit Sub-Q ACHS RF: 0 rivaroxaban [Xarelto] 20 mg Tablet 20 mg G-TUBE QPM RF: 0 quetiapine 25 mg Tablet 25 mg G-Tube TID PRN (Reason: Agitation And/Or Hallucination) Qty: 10 RF: 0 acetaminophen 325 mg tablet 650 mg Feeding Tube Q4H PRN (Reason: Temp > 100.4, pain 1 to 10) RF: 0 Referrals: Pawan Maynard MD [Family Provider] - See Instructions (kindly refer to outpatient gastroenterology clinic for follow up for GI bleed. May need to consider capsule endoscopy if recurrent bleeding occurs. ) UNKNOWN, [Primary Care Provider] - See Instructions Discharge Interventions Interventions: Discharge Planning - Case Management Last Done: 12/10/18 15:59 Status ED Status: Left Department
[2018-12-11] MEDS ORDERED: Aspirin 325 MG Tablet G-TUBE SCH (14:00)
[2018-12-11] MEDS: amLODIPine 5 MG Tablet G-TUBE SCH (14:39)
[2018-12-11] MEDS: Senna/Docusate Sodium 8.6/50 MG Tablet PO SCH (14:40)
[2018-12-11] MEDS: Rivaroxaban 20 MG Tablet G-TUBE SCH (18:46)
== END 2018-12-11 18:55 | DRG 378 ==
LOC: NEPC 18:35 → NEDA 21:28 → N07 22:55
PROVIDERS: ADMIT Hospitalist; ATTEND Hospitalist
PROC: COLONOS (2018-12-08 12:22)
PROC: PANENDO (2018-12-08 12:22)
DX: K20.9 Esophagitis, unspecified; Z79.4 Long term (current) use of insulin; M25.562 Pain in left knee; Z82.3 Family history of stroke; I69.354 Hemiplegia and hemiparesis following cerebral infarction affecting left non-dominant side; R13.10 Dysphagia, unspecified; Z68.1 Body mass index [BMI] 19.9 or less, adult; I69.391 Dysphagia following cerebral infarction; I12.9 Hypertensive chronic kidney disease with stage 1 through stage 4 chronic kidney disease, or unspecified chronic kidney disease; E78.5 Hyperlipidemia, unspecified; Z87.891 Personal history of nicotine dependence; Z82.49 Family history of ischemic heart disease and other diseases of the circulatory system; E44.1 Mild protein-calorie malnutrition; D62 Acute posthemorrhagic anemia; E11.22 Type 2 diabetes mellitus with diabetic chronic kidney disease; E87.0 Hyperosmolality and hypernatremia; D12.4 Benign neoplasm of descending colon; K57.31 Diverticulosis of large intestine without perforation or abscess with bleeding; Z74.01 Bed confinement status; Z79.01 Long term (current) use of anticoagulants; Z93.1 Gastrostomy status; N18.9 Chronic kidney disease, unspecified; E87.6 Hypokalemia
CPT/HCPCS: 36430; 74177; 80048; 80053; 82948; 82962; 85014; 85018; 85025; 85610; 85730; 86850; 86900; 86901; 86923; 88305; 92526; 92610; 97110; 97116; 97162; 97167; 97530; 99211; 99285; C9113; G0195; G0463; J1815; J2370; J2704; J7030; J7120; P9016; Q9963; Q9967